=== PATIENT | female | born 1945 | race Caucasian/White ===

== ENCOUNTER 2016-08-08 21:05 | Emergency (ER) | payer OTHER ==
[~2016-08-08] VITALS: Ht 172.7 cm; Wt 72.6 kg
[~2016-08-08 21:05] MED LIST: ASPI81TA57 PO; BSP5 PO; CHOL100010 PO; CPR500 PO; CZR25 PO; EST5 PO; MISCCAP80 PO; NTRGSL/4 UT; PANT40TA PO; TNR25X PO
[2016-08-08 21:33] VITALS: Ht 172.7 cm; Wt 72.6 kg
[2016-08-08] MEDS ORDERED: ASPIRIN 81 MG CHEW PO STA (21:51)
[2016-08-08 21:52] VITALS: O2SAT 98
--- NOTE | 2016-08-08 21:52 | EMERGENCY ROOM VISIT NOTE ---
History Report prepared by Louisiberic: Yusuf Rivera Under the Supervision of: Dr. Kai Gerard D.O. First contact with patient: 21:39 Chief Complaint: CARDIAC ASSESSMENT Stated Complaint: HEADACHE, FATIQUE Nursing Triage Summary: Patient arrives BLS to ED with complaints of chest pain off and on, currently not experiencing pain. Patient also notes severe headache that has persisted for 3 days, back pain and feeling weak all day. Patient has a history of blockages in her heart, cath scheduled for 08/12 in [place]. Patient had [place] at 45 years of age with angioplasty. Patient denies dizziness and denies photosensitivity, though notes that loud noises are increasing headache pain. Patient notes SOB with exertion. History of Present Illness The patient is a 70 year old female with a history of coronary artery disease who presents to the Emergency Room for an acute cardiac assessment. The patient experiences intermittent chest pain radiating to her neck and face, and her arms felt funny earlier tonight. The patient notes intermittent middle back pain between her shoulder blades. She has also been experiencing exertional shortness of breath. The patient's symptoms are better when she is resting and laying down. The patient did not have any aspirin today but she normally takes a daily baby aspirin. She has had increased swelling of the lower extremities without significant leg pain. The patient is scheduled to have a cardiac catheterization at [facility] in four days with Dr. Yuen. She recently had a stress test. The patient had a heart attack at the age of 45 and is s/p angioplasty. The patient additionally complains of a headache and fatigue for the past several days. Source of History: patient Onset: tonight Position: other (cardiovascular) Quality: other (cardiac assessment) Timing: other (acute) Associated Symptoms: + SOB, + back pain, + chest pain, + fatigue, + headache Review of Systems See HPI for pertinent positives and negatives. A total of ten systems were reviewed and were otherwise negative. Past Medical & Surgical Medical Problems: (1) ACUTE SIGMOID DIVERTICULITIS (2) Benign hypertension (3) Chest tightness (4) Coronary artery disease (5) Diverticulitis large intestine (6) Diverticulosis of colon (7) Dyslipidemia (8) Generalized osteoarthritis (9) GERD (gastroesophageal reflux disease) (10) History of myocardial infarction (11) IBS (irritable bowel syndrome) Surgical Problems: (1) H/O exploratory laparotomy (2) History of hysterectomy (3) History of Faisal fundoplication (4) History of tonsillectomy and adenoidectomy (5) S/P repair of paraesophageal hernia Family History Cancer Heart disease Hypertension Kidney disease Kidney stones Lung disease Social History Smoking Status: Never Smoker Alcohol Use: occasionally Drug Use: none Marital Status: Housing Status: lives with family Occupation Status: retired Current/Historical Medications Scheduled Aspirin (Aspirin Ec Lo-Dose), 81 MG PO HS Atenolol (Atenolol), 6.25 MG PO BID Buspirone HCl (Buspirone HCl), 5 MG PO BID Cholecalciferol (Vitamin D), 2,000 INTER.UNIT PO DAILY Ciprofloxacin (Ciprofloxacin HCl), 500 MG PO BID Estradiol (Estradiol), 0.5 MG PO Q2D Losartan Potassium (Losartan Potassium), 12.5 MG PO QAM Pantoprazole (Protonix), 40 MG PO QAM Probiotic Product (Probiotic), 1 CAP PO QAM Scheduled PRN Nitroglycerin (Nitrostat), 0.4 MG UT UD PRN for Chest Pain Allergies Coded Allergies: Isosorbide (Verified Allergy, Intermediate, FR [facility] [place] RECORD - PT [place], 11/29/15) Escitalopram (Verified Allergy, Unknown, itching, 11/29/15) Latex1 -Allergic Contact Dermititis (Verified Allergy, Unknown, RASH, ) Epinephrine (Verified Adverse Reaction, Intermediate, HEART RACES, 11/29/15) Alprazolam (Verified Adverse Reaction, Unknown, HEADACHE, 11/29/15) Physical Exam Vital Signs Date Time Temp Pulse Resp B/P Pulse Ox O2 Delivery O2 Flow Rate FiO2 08/08/16 22:36 59 19 97 08/08/16 22:31 139/78 08/08/16 22:06 61 15 99 08/08/16 22:01 173/72 08/08/16 21:52 98 Room Air 08/08/16 21:35 59 18 96 08/08/16 21:33 73 20 152/85 98 Room Air 08/08/16 21:33 98 Room Air 08/08/16 21:31 155/74 08/08/16 21:23 64 08/08/16 21:15 152/85 Physical Exam GENERAL: Awake, alert, well-appearing, in no distress HENT: Normocephalic, atraumatic. Oropharynx unremarkable. EYES: Normal conjunctiva. Sclera non-icteric. NECK: Supple. No nuchal rigidity. FROM. No JVD. RESPIRATORY: Clear to auscultation. CARDIAC: Regular rate, normal rhythm. Extremities warm and well perfused. Pulses equal. ABDOMEN: Soft, non-distended. No tenderness to palpation. No rebound or guarding. No masses. RECTAL: Deferred. MUSCULOSKELETAL: Chest examination reveals no tenderness. The back is symmetrical on inspection without obvious abnormality. There is no CVA tenderness to palpation. No joint edema. LOWER EXTREMITIES: Calves are equal size bilaterally and non-tender. No edema. No discoloration. NEURO: Normal sensorium. No sensory or motor deficits noted. SKIN: No rash or jaundice noted. Medical Decision & Procedures ER Provider Diagnostic Interpretation: X-ray: Per my interpretation, radiologist interpretation. CHEST ONE VIEW PORTABLE CLINICAL HISTORY: CHEST PAIN dyspnea COMPARISON STUDY: No previous studies for comparison. FINDINGS: The bones soft tissues and hemidiaphragms are normal. The cardiomediastinal silhouette is normal. The lungs are clear. The pulmonary vasculature is normal. IMPRESSION: Negative chest. Electronically signed by: Amador Lopez M.D. 08/08/2016 10:23 PM Dictated Date/Time: 08/08/2016 10:23 PM Laboratory Results 08/08/16 21:29 Red Blood Count 4.54, Mean Corpuscular Volume 86.6, Mean Corpuscular Hemoglobin 28.4, Mean Corpuscular Hemoglobin Concent 32.8, Mean Platelet Volume 9.7, Neutrophils (%) (Auto) 62.4, Lymphocytes (%) (Auto) 30.5, Monocytes (%) (Auto) 5.9, Eosinophils (%) (Auto) 1.0, Basophils (%) (Auto) 0.1, Neutrophils # (Auto) 4.59, Lymphocytes # (Auto) 2.24, Monocytes # (Auto) 0.43, Eosinophils # (Auto) 0.07, Basophils # (Auto) 0.01 08/08/16 21:29 Test 08/08/16 21:29 08/08/16 21:55 White Blood Count 7.35 K/uL (4.8-10.8) Red Blood Count 4.54 M/uL (4.2-5.4) Hemoglobin 12.9 g/dL (12.0-16.0) Hematocrit 39.3 % (37-47) Mean Corpuscular Volume 86.6 fL (80-100) Mean Corpuscular Hemoglobin 28.4 pg (25-34) Mean Corpuscular Hemoglobin Concent 32.8 g/dl (32-36) Platelet Count 305 K/uL (130-400) Mean Platelet Volume 9.7 fL (7.4-10.4) Neutrophils (%) (Auto) 62.4 % Lymphocytes (%) (Auto) 30.5 % Monocytes (%) (Auto) 5.9 % Eosinophils (%) (Auto) 1.0 % Basophils (%) (Auto) 0.1 % Neutrophils # (Auto) 4.59 K/uL (1.4-6.5) Lymphocytes # (Auto) 2.24 K/uL (1.2-3.4) Monocytes # (Auto) 0.43 K/uL (0.11-0.59) Eosinophils # (Auto) 0.07 K/uL (0-0.5) Basophils # (Auto) 0.01 K/uL (0-0.2) RDW Standard Deviation 45.4 fL (36.4-46.3) RDW Coefficient of Variation 14.4 % (11.5-14.5) Immature Granulocyte % (Auto) 0.1 % Immature Granulocyte # (Auto) 0.01 K/uL (0.00-0.02) Anion Gap 7.0 mmol/L (3-11) Est Creatinine Clear Calc Drug Dose 69.4 ml/min Estimated GFR () 92.9 Estimated GFR (Non- 80.2 BUN/Creatinine Ratio 13.1 (10-20) Calcium Level 8.8 mg/dl (8.5-10.1) Total Bilirubin 0.3 mg/dl (0.2-1) Direct Bilirubin < 0.1 mg/dl (0-0.2) Aspartate Amino Transf (AST/SGOT) 12 U/L (15-37) Alanine Aminotransferase (ALT/SGPT) 15 U/L (12-78) Alkaline Phosphatase 91 U/L (45-117) Total Protein 7.4 gm/dl (6.4-8.2) Albumin 3.5 gm/dl (3.4-5.0) Bedside Troponin I 0.000 ng/ml (0-0.045) Laboratory results reviewed by me Medications Administered Medications (Trade) Dose Ordered Sig/Dwight Route Start Time Stop Time Status Last Admin Dose Admin Aspirin (Aspirin Chew) 324 mg NOW STAT PO 08/08/16 21:51 08/08/16 21:52 DC 08/08/16 22:00 324 MG ECG Indication: chest pain Rate (beats per minute): 64 Rhythm: normal sinus Findings: nonspecific-ST abn, other (normal axis, normal intervals) ED Course 2139: The patient was evaluated in room B12b. A complete history and physical exam was performed. 2150: Aspirin 324 mg PO. 2221: Spoke with Dr. Sue, the second officer [employer] [facility] at [facility]. He accepted to patient for transfer. Medical Decision Differential diagnosis: Etiologies such as cardiac ischemia, aortic dissection, pulmonary embolism, pneumonia, pneumothorax, musculoskeletal, infections, pericarditis, myocarditis, esophageal rupture, gastrointestinal, as well as others were entertained. Patient was given aspirin the emergency department. Patient remained stable with no current chest pain. I've spoken to cardiology [facility] accepts the patient for admission and transfer at 2229. Consults Time Called: 2214 Consulting Physician: Dr. Sue, the second officer [employer] [facility] at [facility] Returned Call: [phone] He accepted to patient for transfer. Impression Primary Impression: Acute chest pain Scribe Attestation The scribe's documentation has been prepared under my direction and personally reviewed by me in its entirety. I confirm that the note above accurately reflects all work, treatment, procedures, and medical decision making performed by me. Departure Information Dispostion Transfer Acute Care Facility Referrals Anders Crawley D.O. (PCP) Patient Instructions [facility]
[2016-08-08 21:58] LABS: BASO % 0.1 %; BASO ABS # 0.01 K/uL (0-0.2); COMPLETE YES; HEMATOCRIT 39.3 % (37-47); IG% 0.1 %; LYMPH % 30.5 %; LYMPH ABS # 2.24 K/uL (1.2-3.4); MEAN CELL VOLUME 86.6 fL (80-100); MEAN CORPUSCULAR HEMOGLOBIN 28.4 pg (25-34); MEAN CORPUSCULAR HGB CONC 32.8 g/dl (32-36); MEAN PLATELET VOLUME 9.7 fL (7.4-10.4); MONO % 5.9 %; NEUT % 62.4 %; PLATELET COUNT 305 K/uL (130-400); RED BLOOD COUNT 4.54 M/uL (4.2-5.4); WHITE BLOOD COUNT 7.35 K/uL (4.8-10.8)
[2016-08-08 22:05] LABS: ALT/SGPT 15 U/L (12-78); BLOOD UREA NITROGEN 10 mg/dl (7-18); BUN/CREATININE RATIO 13.1 (10-20); CARBON DIOXIDE 28 mmol/L (21-32); CHLORIDE 103 mmol/L (98-107); CREATININE 0.75 mg/dl (0.60-1.20); GLUCOSE 110 mg/dl (70-99); POTASSIUM 3.6 mmol/L (3.5-5.1); SODIUM 138 mmol/L (136-145)
[2016-08-08 22:08] LABS: ALKALINE PHOSPHATASE 91 U/L (45-117); AST/SGOT 12 U/L (15-37)
[2016-08-08 22:12] LABS: CALCIUM 8.8 mg/dl (8.5-10.1)
--- NOTE | 2016-08-08 22:25 | DIAGNOSTIC IMAGING REPORT ---
CHEST ONE VIEW PORTABLE CLINICAL HISTORY: CHEST PAIN dyspnea COMPARISON STUDY: No previous studies for comparison. FINDINGS: The bones soft tissues and hemidiaphragms are normal. The cardiomediastinal silhouette is normal. The lungs are clear. The pulmonary vasculature is normal. IMPRESSION: Negative chest. Electronically signed by: Amador Lopez M.D. 08/08/2016 10:23 PM Dictated Date/Time: 08/08/2016 10:23 PM
[2016-08-08 22:36] VITALS: TEMP 36.8
[2016-08-08] MEDS ORDERED: HYDR25TA4 PO (22:50)
[2016-08-08] MEDS ORDERED: SIMV40TA2 PO (22:51)
[2016-08-08] MEDS ORDERED: DOXY1TAB6 PO (22:53)
[2016-08-08] MEDS ORDERED: LORA-741 PO (22:54)
[2016-08-08] MEDS ORDERED: METR0.7527 TD (22:55)
[2016-08-08] MEDS ORDERED: CLOTCRE33 TOP (22:57)
[2016-08-08] MEDS ORDERED: PRED-603 PO (22:59)
[2016-08-08] MEDS ORDERED: ALBUAER INH (23:03)
[2016-08-08] MEDS ORDERED: TIZA4CAP PO (23:04)
[2016-08-08] MEDS ORDERED: HEMP OIL PO (23:05)
[2016-08-08] MEDS ORDERED: ZNTT/150 PO (23:06)
[2016-08-08] MEDS ORDERED: IMD/2 PO (23:08)
[2016-08-08] MEDS ORDERED: POTA1TAB PO (23:09)
[2016-08-08] MEDS ORDERED: SUCR1TAB29 PO (23:10)
[2016-08-08] MEDS ORDERED: ACETAMINOPHEN 500 MG TAB PO STA (23:11)
[2016-08-08] MEDS ORDERED: CYCL5TAB PO (23:12)
[2016-08-08] MEDS ORDERED: BUSP5TAB59 PO ×2 (23:14)
[2016-08-08] MEDS ORDERED: HYDRCRE28 PR (23:19)
[2016-08-08] MEDS ORDERED: ACET1TAB84 PO (23:21)
[2016-08-08] MEDS ORDERED: AMOX875T PO (23:26)
[2016-08-08 23:39] VITALS: BP 154/86; PULSE 61; O2SAT 97
[2016-08-08] MEDS ORDERED: POTA-74 PO (23:58)
== END 2016-08-08 23:44 | disposition short-term general hospital (02) ==
LOC: EDBD 21:05 → C.EDB 21:06
DX: R07.9 Chest pain, unspecified (principal); I10 Essential (primary) hypertension; I25.10 Atherosclerotic heart disease of native coronary artery without angina pectoris; E78.5 Hyperlipidemia, unspecified; K21.9 Gastro-esophageal reflux disease without esophagitis; K58.9 Irritable bowel syndrome, unspecified; K57.90 Diverticulosis of intestine, part unspecified, without perforation or abscess without bleeding; K57.92 Diverticulitis of intestine, part unspecified, without perforation or abscess without bleeding; I25.2 Old myocardial infarction; Z90.710 Acquired absence of both cervix and uterus; Z98.890 Other specified postprocedural states; Z79.82 Long term (current) use of aspirin; Z79.899 Other long term (current) drug therapy; Z91.040 Latex allergy status; Z88.8 Allergy status to other drugs, medicaments and biological substances; Z80.9 Family history of malignant neoplasm, unspecified; Z82.49 Family history of ischemic heart disease and other diseases of the circulatory system; Z84.1 Family history of disorders of kidney and ureter

== ENCOUNTER → 2016-10-12 | Outpatient (CLI) | payer OTHER ==
[~2016-10-12] MED LIST changes: +ACET1TAB84 PO; +ALBUAER INH; +AMOX875T PO; -BSP5 PO; +BUSP5TAB59 PO; +CLOTCRE33 TOP; -CPR500 PO; +CYCL5TAB PO; +DOXY1TAB6 PO; +HEMP OIL PO; +HYDR25TA4 PO; +HYDRCRE28 PR; +IMD/2 PO; +LORA-741 PO; +METR0.7527 TD; +OPTIRAY 320 IV PRN; +POTA-74 PO; +PRED-603 PO; +SIMV40TA2 PO; +SUCR1TAB29 PO; +TIZA4CAP PO; +ZNTT/150 PO
--- NOTE | 2016-10-12 08:52 | DIAGNOSTIC IMAGING REPORT ---
ABD/PELVIS IV AND ORAL CONT CT DOSE: 482.13 mGy.cm HISTORY: Diverticulitis. Pain. Gallstones TECHNIQUE: Multiaxial CT images of the abdomen and pelvis were performed following the use of intravenous and oral contrast. A dose lowering technique was utilized adhering to the principles of ALARA. COMPARISON STUDY: 11/29/2015 FINDINGS: Lung bases are clear. Mild fatty infiltration of liver. Several small gallstones within the gallbladder lumen. No significant gallbladder distention. Pancreas is uniform. Spleen is uniform. Kidneys show several parapelvic cysts but are negative for hydronephrosis. Moderate atherosclerotic change thoracic aorta. No significant abdominal retroperitoneal or pelvic adenopathy. Doppler as nonobstructive. Moderate chronic sigmoid diverticulosis. No evidence for acute diverticulitis. No evidence for abscess collection or obstruction. IMPRESSION: 1. Chronic sigmoid diverticulosis with no evidence for diverticulitis. 2. Several small gallstones in a nondistended gallbladder. 3. Several small renal parapelvic cysts considered benign. 4. Mild fatty infiltration of liver. 5. Stable postoperative changes to the gastric fundus The above report was generated using voice recognition software. It may contain grammatical, syntax or spelling errors. Electronically signed by: Amador Lopez M.D. 10/12/2016 8:51 AM Dictated Date/Time: 10/12/2016 8:42 AM
== END | disposition home or self-care (01) ==
LOC: C.CTS 07:15
PROVIDERS: ATTEND Surgery
DX: K80.20 Calculus of gallbladder without cholecystitis without obstruction (principal); M54.9 Dorsalgia, unspecified; K57.30 Diverticulosis of large intestine without perforation or abscess without bleeding

== ENCOUNTER → 2016-10-21 | Outpatient (CLI) | payer OTHER ==
[~2016-10-21] MED LIST changes: -OPTIRAY 320 IV PRN
--- NOTE | 2016-10-21 16:01 | DIAGNOSTIC IMAGING REPORT ---
THORACIC SPINE 3 VIEWS CLINICAL HISTORY: Thoracic back pain. FINDINGS: AP, lateral, and swimmer's views of the thoracic spine are obtained. Correlation is made with chest CT dated 05/09/2015. The skeletal structures are osteopenic. There is no radiographic evidence of fracture or malalignment. Vertebral body height and alignment are maintained throughout the thoracic spine. Anterior osteophytes are seen throughout and there is hyperkyphosis. The transverse processes and pedicles are grossly intact as seen on the frontal view. Multilevel degenerative disc space narrowing is noted. Endplate sclerosis is seen in the lower thoracic region. The visualized lung parenchyma appears clear. A calcification adjacent to the gastroesophageal junction is unchanged from previous. IMPRESSION: 1. No acute bony abnormality is seen involving the thoracic spine. 2. Osteopenia and spondylotic change as above. Electronically signed by: Chuy Cantor M.D. 10/21/2016 4:00 PM Dictated Date/Time: 10/21/2016 3:58 PM
== END | disposition home or self-care (01) ==
LOC: C.RADBC 15:18
PROVIDERS: ATTEND Physician Assistant Medical
DX: M54.6 Pain in thoracic spine (principal)

== ENCOUNTER 2017-02-01 09:54 | Emergency (ER) | payer OTHER ==
[~2017-02-01] VITALS: Ht 157.5 cm; Wt 74.0 kg
[~2017-02-01 09:54] MED LIST changes: -AMOX875T PO; -CYCL5TAB PO; -TIZA4CAP PO
[2017-02-01 10:03] VITALS: TEMP 36.6; Ht 157.5 cm; Wt 74.0 kg
[2017-02-01] MEDS ORDERED: ALBUT/IPRATROP 3MG/0.5MG NEB 3 ML VIAL INH STA (10:27)
[2017-02-01] MEDS ORDERED: AMOXICILLIN 250 MG CAP PO ONE (10:30)
--- NOTE | 2017-02-01 10:49 | DIAGNOSTIC IMAGING REPORT ---
CHEST ONE VIEW PORTABLE CLINICAL HISTORY: cough COMPARISON STUDY: 08/08/2016 FINDINGS: The heart is normal in size. There is stable elevation/eventration of the left hemidiaphragm. There is a stable right-sided pleural diaphragmatic calcification. There is no focal pulmonary consolidation. There is no failure. There are no pleural effusions.[ IMPRESSION: No active disease in the chest. Electronically signed by: Jordan Wong M.D. 02/01/2017 10:48 AM Dictated Date/Time: 02/01/2017 10:47 AM
[2017-02-01 11:05] LABS: ALT/SGPT 17 U/L (12-78); BLOOD UREA NITROGEN 10 mg/dl (7-18); CALCIUM 9.3 mg/dl (8.5-10.1); CARBON DIOXIDE 23 mmol/L (21-32); CHLORIDE 102 mmol/L (98-107); CREATININE 0.82 mg/dl (0.60-1.20); GLUCOSE 146 mg/dl (70-99); POTASSIUM 3.3 mmol/L (3.5-5.1); SODIUM 139 mmol/L (136-145)
[2017-02-01 11:07] LABS: BASO % 0.1 %; BASO ABS # 0.02 K/uL (0-0.2); COMPLETE YES; HEMATOCRIT 40.4 % (37-47); IG% 0.2 %; LYMPH % 9.6 %; LYMPH ABS # 1.36 K/uL (1.2-3.4); MEAN CORPUSCULAR HEMOGLOBIN 28.9 pg (25-34); MEAN CORPUSCULAR HGB CONC 33.7 g/dl (32-36); MEAN PLATELET VOLUME 10.2 fL (7.4-10.4); MONO % 3.8 %; NEUT % 86.3 %; PLATELET COUNT 299 K/uL (130-400); WHITE BLOOD COUNT 14.22 K/uL (4.8-10.8)
[2017-02-01 11:10] LABS: ALKALINE PHOSPHATASE 97 U/L (45-117); AST/SGOT 15 U/L (15-37)
[2017-02-01] MEDS ORDERED: IBUPROFEN 200 MG TAB PO STA (11:19)
[2017-02-01] MEDS ORDERED: AMOX500C3 PO (11:40)
--- NOTE | 2017-02-01 11:40 | EMERGENCY ROOM VISIT NOTE ---
History Report prepared by Pete: Belle Bacon Under the Supervision of: Dr. Guevara Daniel D.O. First contact with patient: 10:21 Chief Complaint: SHORTNESS OF BREATH Stated Complaint: TIGHTNESS IN CHEST, DIFFICULTY BREATHING Nursing Triage Summary: SOb and [place] with coughing up yellow chunks with epigastric pain into her chest getting worse over night History of Present Illness The patient is a 71 year old female who presents to the Emergency Room with complaints of worsening shortness of breath beginning last night. The patient developed a cough, shortness of breath, and tightness in her chest last night. She took some prednisone last night. Her symptoms worsened throughout the night. She used Vicks, cough drops, and Tylenol throughout the night to manage her symptoms. This morning she woke up and her symptoms persisted. She took another dose of prednisone. She called her PCP and they were unable to see her until this afternoon. The patient was advised to come to the ED for further evaluation. The patient also reports pain with swallowing. She takes a baby aspirin and denies any other blood thinner usage. She was taking a low dose of doxycycline for rosacea but denies any other recent antibiotic use. Source of History: patient Onset: last night Position: chest (respiratory) Quality: other (shortness of breath) Timing: worsening Modifying Factors (Relieving): tylenol, other (Vicks, cough drops, prednisone) Associated Symptoms: + cough Note: Pt notes chest tightness. Review of Systems See HPI for pertinent positives & negatives. A total of 10 systems reviewed and were otherwise negative. Past Medical & Surgical Medical Problems: (1) ACUTE SIGMOID DIVERTICULITIS (2) Benign hypertension (3) Chest tightness (4) Coronary artery disease (5) Diverticulitis large intestine (6) Diverticulosis of colon (7) Dyslipidemia (8) Generalized osteoarthritis (9) GERD (gastroesophageal reflux disease) (10) History of myocardial infarction (11) IBS (irritable bowel syndrome) Surgical Problems: (1) H/O exploratory laparotomy (2) History of hysterectomy (3) History of Faisal fundoplication (4) History of tonsillectomy and adenoidectomy (5) S/P repair of paraesophageal hernia Family History Cancer Heart disease Hypertension Kidney disease Kidney stones Lung disease Social History Smoking Status: Former Smoker Alcohol Use: occasionally Drug Use: marijuana Marital Status: Housing Status: lives with family Occupation Status: retired Current/Historical Medications Scheduled Aspirin (Aspirin Ec Lo-Dose), 81 MG PO HS Atenolol (Atenolol), 12.5 MG PO QAM Buspirone Hcl (Buspirone Hcl), 2.5 MG PO QAM Cholecalciferol (Vitamin D), 2,000 INTER.UNIT PO DAILY Clotrimazole W/ Betamethasone (Lotrisone), 1 APPLN TOP BID Estradiol (Estradiol), 0.5 MG PO Q2D Hydrochlorothiazide (Hctz), 12.5 MG PO QAM Losartan Potassium (Losartan Potassium), 12.5 MG PO QPM Metronidazole (Topical) (Metrogel), 1 APPLN TD BID Pantoprazole (Protonix), 40 MG PO QAM Potassium Chloride (Potassium Chloride Er), 20 MEQ PO DAILY Prednisone (Deltasone), 10 MG PO PRN/UD Probiotic Product (Probiotic), 1 CAP PO QAM Simvastatin (Zocor), 40 MG PO QPM [Hemp Oil], 15 DROPS PO DAILY Scheduled PRN Acetaminophen (Tylenol Arthritis Ext Rel), 650 MG PO Q8H PRN for Pain Albuterol Sulfate (Proventil Hfa), 2 PUFFS INH Q4H PRN for SOB/Wheezing Doxycycline Hyclate (Doxycycline Hyclate), 50 MG PO DAILY PRN for ROSACEA Hydrocortisone (Rectal) (Proctozone-Hc), 1 APPLN NC BID PRN for Hemorrhoids Loperamide Hcl (Imodium), 2 MG PO QID PRN for Diarrhea Lorazepam (Ativan), 0.5 MG PO Q8 PRN for Anxiety Nitroglycerin (Nitrostat), 0.4 MG UT UD PRN for Chest Pain Ranitidine (Zantac), 150 MG PO QPM PRN for GI Upset Sucralfate (Carafate), 1 GM PO QID PRN for REFLUX Allergies Coded Allergies: Isosorbide Nitrate (Verified Allergy, Intermediate, FR [facility] [place] RECORD - PT [place], 11/29/15) Escitalopram (Verified Allergy, Unknown, itching, 11/29/15) Latex1 -Allergic Contact Dermititis (Verified Allergy, Unknown, RASH, ) Epinephrine (Verified Adverse Reaction, Intermediate, HEART RACES, 11/29/15) Alprazolam (Verified Adverse Reaction, Unknown, HEADACHE, 11/29/15) Physical Exam Vital Signs Date Time Temp Pulse Resp B/P (MAP) Pulse Ox O2 Delivery O2 Flow Rate FiO2 02/01/17 11:24 100 Room Air 02/01/17 10:52 48 15 136/78 02/01/17 10:10 62 02/01/17 10:03 36.6 55 22 171/87 99 Physical Exam CONSTITUTIONAL/VITAL SIGNS: Reviewed / noted above. GENERAL: Non-toxic in appearance. INTEGUMENTARY: Warm, dry, and [place]. HEAD: Normocephalic. EYES: without scleral icterus or trauma. ENT/OROPHARYNX: clear and moist. LYMPHADENOPATHY/NECK: Is supple without lymphadenopathy or meningismus. RESPIRATORY: Lungs clear and equal. Productive cough with yellow sputum. CARDIOVASCULAR: Regular rate and rhythm. GI/ABDOMEN: Soft and nontender. No organomegaly or pulsatile mass. No rebound or guarding. Normal bowel sounds. EXTREMITIES: Warm and well perfused. BACK: No CVA tenderness. NEUROLOGICAL: Intact without focal deficits. PSYCHIATRIC: normal affect. MUSCULOSKELETAL: Normally developed with good muscle tone. Medical Decision & Procedures ER Provider Diagnostic Interpretation: Radiology results as stated below per my review and radiologist interpretation: CHEST ONE VIEW PORTABLE CLINICAL HISTORY: cough COMPARISON STUDY: 08/08/2016 FINDINGS: The heart is normal in size. There is stable elevation/eventration of the left hemidiaphragm. There is a stable right-sided pleural diaphragmatic calcification. There is no focal pulmonary consolidation. There is no failure. There are no pleural effusions.[ IMPRESSION: No active disease in the chest. Electronically signed by: Jordan Wong M.D. 02/01/2017 10:48 AM Dictated Date/Time: 02/01/2017 10:47 AM Laboratory Results 02/01/17 10:15 Red Blood Count 4.70, Mean Corpuscular Volume 86.0, Mean Corpuscular Hemoglobin 28.9, Mean Corpuscular Hemoglobin Concent 33.7, Mean Platelet Volume 10.2, Neutrophils (%) (Auto) 86.3, Lymphocytes (%) (Auto) 9.6, Monocytes (%) (Auto) 3.8, Eosinophils (%) (Auto) 0.0, Basophils (%) (Auto) 0.1, Neutrophils # (Auto) 12.27, Lymphocytes # (Auto) 1.36, Monocytes # (Auto) 0.54, Eosinophils # (Auto) 0.00, Basophils # (Auto) 0.02 02/01/17 10:15 Test 02/01/17 10:15 White Blood Count 14.22 K/uL (4.8-10.8) Red Blood Count 4.70 M/uL (4.2-5.4) Hemoglobin 13.6 g/dL (12.0-16.0) Hematocrit 40.4 % (37-47) Mean Corpuscular Volume 86.0 fL (80-100) Mean Corpuscular Hemoglobin 28.9 pg (25-34) Mean Corpuscular Hemoglobin Concent 33.7 g/dl (32-36) Platelet Count 299 K/uL (130-400) Mean Platelet Volume 10.2 fL (7.4-10.4) Neutrophils (%) (Auto) 86.3 % Lymphocytes (%) (Auto) 9.6 % Monocytes (%) (Auto) 3.8 % Eosinophils (%) (Auto) 0.0 % Basophils (%) (Auto) 0.1 % Neutrophils # (Auto) 12.27 K/uL (1.4-6.5) Lymphocytes # (Auto) 1.36 K/uL (1.2-3.4) Monocytes # (Auto) 0.54 K/uL (0.11-0.59) Eosinophils # (Auto) 0.00 K/uL (0-0.5) Basophils # (Auto) 0.02 K/uL (0-0.2) RDW Standard Deviation 42.9 fL (36.4-46.3) RDW Coefficient of Variation 13.7 % (11.5-14.5) Immature Granulocyte % (Auto) 0.2 % Immature Granulocyte # (Auto) 0.03 K/uL (0.00-0.02) Anion Gap 14.0 mmol/L (3-11) Est Creatinine Clear Calc Drug Dose 58.4 ml/min Estimated GFR () 82.9 Estimated GFR (Non- 71.5 BUN/Creatinine Ratio 12.0 (10-20) Calcium Level 9.3 mg/dl (8.5-10.1) Total Bilirubin 0.4 mg/dl (0.2-1) Aspartate Amino Transf (AST/SGOT) 15 U/L (15-37) Alanine Aminotransferase (ALT/SGPT) 17 U/L (12-78) Alkaline Phosphatase 97 U/L (45-117) Troponin I < 0.015 ng/ml (0-0.045) Total Protein 7.7 gm/dl (6.4-8.2) Albumin 3.9 gm/dl (3.4-5.0) Globulin 3.8 gm/dl (2.5-4.0) Albumin/Globulin Ratio 1.0 (0.9-2) Laboratory results as stated above per my review. Medications Administered Medications (Trade) Dose Ordered Sig/Dwight Route Start Time Stop Time Status Last Admin Dose Admin Albuterol/ Ipratropium (Duoneb) 3 ml NOW STAT INH 02/01/17 10:27 02/01/17 10:29 DC 02/01/17 10:41 3 ML Amoxicillin (Amoxil Cap) 500 mg NOW ONCE PO 02/01/17 10:30 02/01/17 10:31 DC 02/01/17 10:41 500 MG Ibuprofen (Advil Tab) 400 mg NOW STAT PO 02/01/17 11:19 02/01/17 11:20 DC 02/01/17 11:23 400 MG ECG Indication: SOB/dyspnea Rate (beats per minute): 54 Rhythm: normal sinus Findings: no acute ischemic change, no ectopy ED Course 1021: Previous medical records were reviewed. The patient was evaluated in room C6. A complete history and physical examination was performed. 1027: DuoNeb 3 ml INH 1030: Amoxicillin 500 mg PO 1119: Ibuprofen 400 mg PO 1129: I reassessed the patient at this time. She is feeling better and resting comfortably. I discussed the results and treatment plan with the patient. I answered all pertaining questions that she had. She expressed understanding and verbalized agreement. The patient will be discharged home. Medical Decision Differentials considered include acute myocardial infarction, acute coronary syndrome, myocarditis, pericarditis, pericardial effusions /tamponade, esophageal perforation, pulmonary embolism, pneumonia, pneumothorax, cardiomyopathy, congestive heart, anemia, and COPD/asthma exacerbation. This is a 71-year-old female who presents to the ED with a chief complaint of a cough. She also describes some tightness in her chest at night. She took a 40 mg prednisone since the onset of her symptoms. She has a productive cough for yellow sputum. The patient contacted her PCP this morning was told to come to the ED for evaluation. On exam, she does have a productive cough for yellow sputum. She denies any other significant symptoms. An EKG shows a sinus bradycardia without ischemic changes. White blood cell count was 14. Complete metabolic panel was unremarkable, troponin is negative, chest x-ray did not show acute disease. The patient's symptoms are consistent with a bronchitis. She was treated with amoxicillin here. She was also given a DuoNeb treatment. She is felt to be stable for discharge and outpatient follow-up. Medication Reconcilliation Current Medication List: was personally reviewed by me Blood Pressure Screening Patient's blood pressure: Elevated blood pressure Blood pressure disposition: Referred to PCP Impression Primary Impression: Acute bronchitis Scribe Attestation The scribe's documentation has been prepared under my direction and personally reviewed by me in its entirety. I confirm that the note above accurately reflects all work, treatment, procedures, and medical decision making performed by me. Departure Information Dispostion Home / Self-Care Prescriptions Amoxicillin (AMOXIL) 500 Mg Cap 500 MG PO TID, #21 CAP Prov: Guevara Daniel D.O. 02/01/17 Referrals Anders Crawley D.ODustin (PCP) Patient Instructions My [facility] Additional Instructions Amoxicillin as prescribed. Follow-up with your doctor for further care and evaluation in 1-2 days. Return to the emergency department for worsening or new symptoms or any concerns. You have been examined and treated today on an emergency basis only. This is not a substitute for, or an effort to provide, complete comprehensive medical care. It is impossible to recognize and treat all injuries or illnesses in a single emergency department visit. It is therefore important that you follow up closely with your doctor. Call as soon as possible for an appointment.
[2017-02-01] MEDS ORDERED: CHOL400C9 (11:42)
[2017-02-01] MEDS ORDERED: ASPI81TA28 PO (11:42)
[2017-02-01 11:54] VITALS: BP 143/63; PULSE 59; O2SAT 98
== END 2017-02-01 12:00 | disposition home or self-care (01) ==
LOC: C.EDB 09:57 → C.EDC 12:00
DX: J20.9 Acute bronchitis, unspecified (principal); L71.9 Rosacea, unspecified; I10 Essential (primary) hypertension; I25.10 Atherosclerotic heart disease of native coronary artery without angina pectoris; K57.30 Diverticulosis of large intestine without perforation or abscess without bleeding; E78.5 Hyperlipidemia, unspecified; K21.9 Gastro-esophageal reflux disease without esophagitis; I25.2 Old myocardial infarction; K58.9 Irritable bowel syndrome, unspecified; Z79.82 Long term (current) use of aspirin; Z87.891 Personal history of nicotine dependence; Z90.710 Acquired absence of both cervix and uterus; Z82.49 Family history of ischemic heart disease and other diseases of the circulatory system; Z84.1 Family history of disorders of kidney and ureter

== ENCOUNTER 2017-11-03 10:58 | Observation (INO) | payer OTHER ==
[~2017-11-03] VITALS: Ht 157.5 cm; Wt 72.8 kg
[~2017-11-03 10:58] MED LIST changes: +ASPI81TA28 PO; -ASPI81TA57 PO; +CEFAZOLIN 1000MG IV PUSH 7.5 ML IV SCH; -CHOL100010 PO; +CHOL400C9; +RANI150T85 PO; -ZNTT/150 PO
[2017-11-03 12:01] VITALS: BP 140/82; PULSE 53; TEMP 36.8; O2SAT 96; BMI 29.0
--- NOTE | 2017-11-03 12:32 | History & Physical Bridge Note ---
H&P Re-Evaluation Bridge Note: I have examined the patient, reviewed the History & Physical and in the interval since the performance of the History & Physical I have noted the following changes of clinical significance: No changes noted
--- NOTE | 2017-11-03 12:33 | Pre Sedation Assessment ---
Pre Sedation Assessment General Date of Sedation: Nov 03, 2017. Vital Signs Past 12 Hours Date Time Temp Pulse Resp B/P (MAP) Pulse Ox O2 Delivery O2 Flow Rate FiO2 11/03/17 12:01 36.8 53 18 140/82 (101) 96 Room Air Review Cardiovascular: regular rate, rhythm, no murmur, + bradycardia Lungs: lungs clear, normal breath sounds Pre-Sedation Airway Assessment Smoking Status: Former Smoker Hx of Sleep Apnea: No Thyro-mental Distance: < or =3 Finger Breadths Oral Cavity: Capped Teeth, Dentures Mallampati Classification: Class II ASA Classification: Class II NPO Status Date of Last Intake of Fluids: Nov 02, 2017 Time of Last Intake of Fluids: 1929 Date of Last Intake of Solids: Nov 02, 2017 Time of Last Intake of Solids: 1929 Notes The planned sedation has been discussed with the patient. Informed Consent was obtained. I have identified the patient, determined the appropriateness of sedation and have assessed the patient immediately prior to the procedure. All medicine(s) and interventions are by my order.
[2017-11-03] MEDS ORDERED: BUPIVACAINE 0.25% 30 ML VIAL ONE (12:43)
[2017-11-03] MEDS ORDERED: LIDOCAINE HCL 1% 20 ML VIAL ONE (12:43)
[2017-11-03] MEDS ORDERED: BACITRACIN 50000 UNIT VIAL ONE (12:43)
[2017-11-03] MEDS ORDERED: FENTANYL CITRATE INJ 50 MCG/1 ML 2 ML VIAL ONE ×2 (12:51→13:21)
[2017-11-03] MEDS ORDERED: MIDAZOLAM HCL 5 MG/ML 1 ML VIAL ONE ×2 (12:51→13:21)
--- NOTE | 2017-11-03 14:25 | Post Sedation Assessment ---
Post Sedation Assessment General Date of Sedation Nov 03, 2017. Vital Signs: Vital Signs Past 12 Hours Date Time Temp Pulse Resp B/P (MAP) Pulse Ox O2 Delivery O2 Flow Rate FiO2 11/03/17 14:12 60 16 114/64 (81) 99 Nasal Cannula 5 11/03/17 12:01 36.8 53 18 140/82 (101) 96 Room Air Post Procedure Recovery Score Activity: (2) Moves 4 extremities * Respiration: (2) Deep breath/cough Circulation: (2) +/-20% PreAnes Value Consciousness: (2) Fully Awake Oxygen Saturation: (2) > 92% On Room Air Post Anesthesia Score: 10 Discharge Sedation Level of Care: Fast Track Phase II Post Sedation Plan On clinical assessment, the patient appears to have tolerated the sedation without complications. Patient is recovering as anticipated. Patient will continue to be monitored by nursing and may be discharged when sedation discharge criteria are met per below protocol. Upon Completions of procedure and additional 15 minutes continue every 5 minute vital signs and the P.A.R. score; then discharge to a Phase I or Fast Track to Phase II per the following guidelines: * Discharge Patient to appropriate Phase II area if PAR is 8 or greater or return to pre- procedure baseline. The post - procedure orders will be as directed. * If PAR score is less than 8 or not return to pre-procedure baseline then patient will follow Phase I monitoring till PAR is reached for Phase II. The Phase I may be done in procedure room or may call to secure a Phase I area. * If naloxone or flumazenil are used for reversal, hold in Phase I for an additional 60 -120 minutes before discharge to Phase II. Please call the Sedation Physician to re-evaluate and complete post-note for discharge to Phase II area. Do NOT discharge from procedure sedation or Phase 1 until post- sedation evaluation note is complete by procedure /sedation MD Sedation Discharge Instructions to be given to the patient at discharge to home.
--- NOTE | 2017-11-03 14:26 | [facility] Post Operative Brief Note ---
Immediate Operative Summary Operative Date Nov 03, 2017. Pre-Operative Diagnosis sss Post-Operative Diagnosis same Procedure(s) Performed dual chamber rate responsive permanent pacemaker with peripheral venogram under fluroscopic guidance Surgeon avinash cardenas Dovetailer Surgeon(s) none Estimated Blood Loss <10cc Findings See Below see official report Fluids (cc crystalloids) 100cc Specimens none Drains None Anesthesia Type IV Sedat Cons RN Only Complication(s) none Disposition Accompanied Pt To Recover: yes Disposition: PCU Overlapping Procedure I was present for: the critical portions of procedure. I was immediately available: during the entire case Back up surgeon: was not required during procedure
[2017-11-03] MEDS ORDERED: ACETAMINOPHEN 325 MG TAB PO PRN (14:30)
[2017-11-03] MEDS ORDERED: LOPERAMIDE HCL 2 MG CAP PO PRN (14:30)
[2017-11-03] MEDS ORDERED: RANITIDINE HCL 150 MG TAB PO PRN (14:30)
[2017-11-03] MEDS ORDERED: LORAZEPAM 0.5 MG TAB PO PRN (14:30)
[2017-11-03] MEDS ORDERED: ALBUTEROL HFA 8 GM INHALER INH PRN (14:30)
[2017-11-03] MEDS ORDERED: NITROGLYCERIN 0.4 MG SL PER TAB CHARGE UT PRN (14:30)
[2017-11-03] MEDS ORDERED: SUCRALFATE 1 GM TAB PO PRN (14:30)
--- NOTE | 2017-11-03 14:32 | Discharge Instructions ---
Discharge Instructions Date of Service Nov 03, 2017. Admission Reason for Admission: Sick Sinus Syndrome Discharge Discharge Diagnosis / Problem: sss s/p dual chamber pacemaker Discharge Goals Goal(s): Improve function Activity Recommendations Activity Limitations: as noted below Lifting Limitations: no more than 10 pounds (do not lift the left elbow over the left shoulder for 1 month; do not lift more than 10 pounds with the left arm for 2 weeks) Shower/Bathe: tomorrow Driving or Machine Use: resume 1 day after discharge . Instructions / Follow-Up Instructions / Follow-Up ACTIVITY RECOMMENDATIONS: * Do not raise affected arm over head for 4 weeks. SPECIAL CARE INSTRUCTIONS: * If bleeding occurs, apply direct pressure to area for 5 minutes. * Call your doctor if you have severe pain, fever, drainage or bleeding at site. * Keep dry for 24 hours. * Keep any scheduled doctor's appointment. * Implant Card - hand held device with website information given. SKIN IRRITATION: * You may experience some redness and/or swelling in the area where radiation was administered. If any skin irritation occurs, please contact your family physician. FOLLOW UP VISIT: Keep any scheduled doctor appointments. Current Hospital Diet Patient's current hospital diet: AHA Diet (Heart Healthy) Discharge Diet Recommended Diet: Regular Diet Procedures Procedures Performed: dual chamber rate responsive permanent pacemaker with peripheral venogram under fluroscopic guidance Pending Studies Studies pending at discharge: no Medical Emergencies . Who to Call and When: Medical Emergencies: If at any time you feel your situation is an emergency, please call 911 immediately. . Non-Emergent Contact Non-Emergency issues call your: [facility] . . "Provider Documentation" section prepared by Celia Magallanes. .
[2017-11-03 15:30] VITALS: BP 109/56; PULSE 60; PULSE 62; TEMP 36.8; O2SAT 98; Ht 157.5 cm; Wt 72.8 kg
[2017-11-03 15:54] VITALS: BP 109/56; PULSE 62; TEMP 36.8; O2SAT 98
[2017-11-03] MEDS ORDERED: IV FLUIDS COMPLETED PRN (16:00)
[2017-11-03 19:33] VITALS: BP 99/56; PULSE 60; TEMP 36.4; O2SAT 96
[2017-11-03] MEDS ORDERED: SIMVASTATIN 40 MG TAB PO SCH (21:00)
[2017-11-03] MEDS ORDERED: LOSARTAN POTASSIUM 25 MG TAB PO SCH (21:00)
[2017-11-03] MEDS: OXYCODONE/ACETAMINOPHEN 5-325 TAB PO PRN (21:09)
[2017-11-04 00:05] VITALS: BP 113/60; PULSE 60; TEMP 36.6; O2SAT 97
[2017-11-04] MEDS: OXYCODONE/ACETAMINOPHEN 5-325 TAB PO PRN (00:59)
--- NOTE | 2017-11-04 07:12 | DIAGNOSTIC IMAGING REPORT ---
CHEST 2 VIEWS ROUTINE CLINICAL HISTORY: EXACT TIME ORDERED Evaluate for pneumothorax and lead placement COMPARISON STUDY: 04/03/2016 FINDINGS: Prominent bipolar cardiac pacemaker in good position. No evidence pneumothorax. Lobulation central left hemidiaphragm. Lungs appear clear. IMPRESSION: Bipolar cardiac pacemaker in good position. The above report was generated using voice recognition software. It may contain grammatical, syntax or spelling errors. Electronically signed by: Amador Lopez M.D. 11/04/2017 7:10 AM Dictated Date/Time: 11/04/2017 7:10 AM
[2017-11-04 07:38] VITALS: BP 141/52; PULSE 62; TEMP 36.5; O2SAT 95
[2017-11-04 08:38] VITALS: BP 141/52; PULSE 62; TEMP 36.5; O2SAT 95
[2017-11-04] MEDS ORDERED: ASPIRIN 81 MG ECTAB PO SCH (09:00)
[2017-11-04] MEDS ORDERED: HYDROCHLOROTHIAZIDE 25 MG TAB PO SCH (09:00)
--- NOTE | 2017-11-04 09:50 | Discharge Summary ---
Discharge Summary Date of Service Nov 04, 2017. Discharge Summary Admission Date: Nov 03, 2017 at 14:29 Discharge Date: Nov 04, 2017 Discharge Disposition: Home Principal Diagnosis: SSS s/p dual chamber pacemaker Secondary Diagnoses/Problems: 2. CAD h/o PTCA to LAD cath in 08/05 [employer] of diagonal with left to left collaterals, 30% ostial and Mid RCA 3. HTN 4. HLD 5. Obesity 6. IBS 7. Anxiety 8. GERD 9. Hiatal Hernia 10. Cholelithiasis 11. OA 12. Diverticulitis Procedures: dual chamber rate responsive permanent pacemaker with peripheral venogram under fluoroscopic guidance Medication Reconciliation Continued Medications: Acetaminophen (Tylenol Arthritis Ext Rel) 650 Mg Cplt 650 MG PO Q8H PRN for Pain, CAP Albuterol Sulfate (Proventil Hfa) 108 Mcg/Act Aer 2 PUFFS INH Q4H PRN for SOB/Wheezing Aspirin (Aspirin Ec) 81 Mg Tab 81 MG PO DAILY Buspirone Hcl (Buspirone Hcl) 5 Mg Tab 1.25 MG PO BID, TAB 2 Refills Cholecalciferol (Vitamin D3) 400 Unit Chw DAILY Clotrimazole W/ Betamethasone (Lotrisone) 1 Cre Cre 1 APPLN TOP BID, GM Doxycycline Hyclate (Doxycycline Hyclate) 100 Mg Tab 50 MG PO DAILY PRN for ROSACEA, TAB Estradiol (Estradiol) 0.5 Mg Tab 0.5 MG PO Q2D Hydrochlorothiazide (Hctz) 25 Mg Tab 12.5 MG PO 4x per week, TAB Hydrocortisone (Rectal) (Proctozone-Hc) 2.5 % Cre 1 APPLN SC BID PRN for Hemorrhoids NO LONGER THAN 2 WEEKS CONSECUTIVELY Loperamide Hcl (Imodium) 2 Mg Cap 2 MG PO QID PRN for Diarrhea, CAP Lorazepam (Ativan) 0.5 Mg Tab 0.5 MG PO Q8 PRN for Anxiety, TAB Losartan Potassium (Losartan Potassium) 25 Mg Tab 12.5 MG PO QPM Metronidazole (Topical) (Metrogel) 0.75 % Gel 1 APPLN TD BID Nitroglycerin (Nitrostat) 0.4 Mg Tab 0.4 MG UT UD PRN for Chest Pain 1 TAB UNDER TONGUE NEEDED FOR CP MAXIMUM OF 3 DOSES Potassium Chloride (Potassium Chloride Er) 10 Meq Tab 20 MEQ PO DAILY, TAB Prednisone (Deltasone) 20 Mg Tab 10 MG PO PRN/UD PULMONARY RESCUE KIT: TAKE 5 TABS X 2 DAYS TAKE 4 TABS X 2 DAYS TAKE 3 TABS X 2 DAYS TAKE 2 TABS X 2 DAYS TAKE 1 TAB X 2 DAYS. Probiotic Product (Probiotic) 1 Cap Cap 1 CAP PO QAM Ranitidine (Zantac) 150 Mg Tab 150 MG PO QPM PRN for GI Upset, TAB Simvastatin (Zocor) 40 Mg Tab 40 MG PO QPM, TAB Sucralfate (Carafate) 1 Gm Tab 1 GM PO QID PRN for REFLUX, TAB [Hemp Oil] () 15 DROPS PO DAILY Admission Information Physical Exam (per Admitting): aaox3, NAD NC/AT EOMI Supple No JVD NRL S1.S2 bradycardia, no murmur CTA b/l No w/r/r Soft NT/ND No focal deficits Skin intact Hospital Course Pt admitted for elective pacemaker insertion due to SSS. Underwent procedure without any complications and monitored overnight and discharged home. Total time spent on discharge = > 30 minutes This includes examination of the patient, discharge planning, medication reconciliation, and communication with other providers. Discharge Instructions ACTIVITY RECOMMENDATIONS: * Do not raise affected arm over head for 4 weeks. SPECIAL CARE INSTRUCTIONS: * If bleeding occurs, apply direct pressure to area for 5 minutes. * Call your doctor if you have severe pain, fever, drainage or bleeding at site. * Keep dressing on and dry for 48 hours then remove. * Keep any scheduled doctor's appointment. * Implant Card - hand held device with website information given. SKIN IRRITATION: * You may experience some redness and/or swelling in the area where radiation was administered. If any skin irritation occurs, please contact your family physician. FOLLOW UP VISIT: Keep any scheduled doctor appointments.
--- NOTE | 2017-11-04 18:42 | OPERATIVE REPORT ---
DATE OF OPERATION: 11/04/2017 PREOPERATIVE DIAGNOSIS: Sick sinus syndrome. POSTOPERATIVE DIAGNOSIS: Sick sinus syndrome. PROCEDURE: Dual chamber rate responsive permanent pacemaker under fluoroscopic guidance along with the peripheral venogram. SURGEON: Celia Magallanes DO ASSISTANTS: None. ANESTHESIA: Monitored conscious sedation administered under my supervision by Concha Bradley. Start time 1309; end time 1412, a total of 9 mg of Versed, 200 mcg of fentanyl. IV FLUIDS: 100 mL. BLOOD LOSS: Less than 20 mL. Urine output, not applicable. SPECIMENS: None. FINDINGS: See below. DRAINS: None. ADDITIONAL MEDS: 10 mL of Isovue contrast. INDICATIONS: This is a 71-year-old female with a past medical history for coronary artery disease, history of PTCA to the LAD when she was in her 40s. Most recent cardiac catheterization in 07/2016 showed that there was a chronic total occlusion of the diagonal with left to left collaterals and 30% ostial as well as mid RCA disease, hypertension, hyperlipidemia, obesity, irritable bowel syndrome, anxiety, gastroesophageal reflux disease, hiatal hernia, cholelithiasis, osteoarthritis, and diverticulitis. She has been followed closely by general cardiology with evidence of sick sinus syndrome that has now become symptomatic; so she was recommended a pacemaker. CONSENT: Consent was obtained prior to the patient going into electrophysiology lab. Patient was informed of the risks, benefits, and alternatives to the procedure. Risks include but not limited to sudden cardiac , cardiac arrhythmias, cerebrovascular accident, myocardial infarction, injury to the blood vessels, chamber of the heart, lung, bleeding, and infection. The patient understood these risks and agreed to the procedure as planned. Informed consent was obtained. DESCRIPTION OF THE PROCEDURE: The patient was brought into the electrophysiology lab in a fasting state. She was connected to continuous quality assurance monitor body. A timeout was performed to ensure patient's identity and procedure correctly. The patient was prepped and draped over the left infraclavicular space in normal surgical standard fashion. Monitored conscious was given throughout the procedure for patient's comfort level. [place] precautions maintained throughout the procedure. 20 mL of 1% lidocaine, bupivacaine mixture were given in left deltopectoral groove. Incision was made in left deltopectoral groove. Blunt dissection was performed down to try to identify cephalic vein; however, none could initially be identified, so we did a peripheral venogram using 10 mL of IV contrast diluted in 10 mL of saline followed by 20 mL flush. This did identify the cephalic vein as well as an axillary, however, the cephalic vein must have been under the muscle. So I opted to do an axillary stick without any problem. Access was obtained and a guidewire was inserted. An 8-[place] sheath was inserted over the guidewire, the dilator removed. A second guidewire was inserted through the 8-[place] sheath to allow for retained venous access. The sheath was removed, flushed, dilator reinserted over it and then it was reinserted over the guidewires. The guidewire and dilator removed and a pacing lead was advanced into the right ventricle. Initially tried to place it in the right ventricular apex; however, the impedance was on the higher side, so we ultimately ended up putting a right ventricular septum. There was adequate pacing and sensing thresholds and no diaphragmatic stimulation with high output pacing. The 8-[place] sheath was peeled away and lead was fixated to pectoralis muscle using 0 silk suture. A second 8-[place] sheath was inserted over the retained guidewire without any resistance. Guidewire and dilator removed. Right atrial lead was then advanced into right atrium and positioned into right atrial appendage under fluoroscopic guidance ultimately using the J preformed curve. There was adequate pacing and sensing thresholds and no diaphragmatic stimulation with high output pacing. The 8-[place] sheath was peeled away and the lead was fixated to pectoralis muscle using 0 silk suture. The pacemaker pocket was created using blunt dissection over the pectoralis muscle within the pectoralis fascia. Pocket was flushed without copious amounts of bacitracin saline wash and inspected for hemostasis. The pulse generator was then attached to the leads, making sure that the pins were in appropriate position, passed the set screws and set screws were all tightened. Pulse generator was then placed in the pocket, making sure that the leads were lying flat beneath the device. A stay stitch using 0 silk suture was used to secure the device to the pectoralis muscle. The incision was then closed in a 3-layer fashion with 2-0 Vicryl interrupted suture followed by 3-0 Vicryl interrupted suture, followed by a 4-0 Monocryl running stitch, and Dermabond was applied. EQUIPMENT: 1. Pulse generator is a [employer] XT DR DEEPAK Avalos, [id number], serial [id number]. 2. Right atrial lead Medtronic 5076-52 cm, serial number [id number]. 3. Right ventricular lead Medtronic 5076-58 cm, serial number [id number] . INTRAOPERATIVE TESTIN. Right atrial lead: P-wave is 2.8 millivolts, impedance 616 ohms, threshold 0.5 volts at 0.8 milliamps. 2. Right ventricular lead: R-waves 4 millivolts, impedance 669 ohms, threshold 0.2 volts at 0.3 milliamps. FINAL MEASUREMENTS THROUGH THE DEVICE: 1. Right atrial lead: P-wave is 3.6 millivolts, impedance 475 ohms, threshold 0.5 volts at 0.4 milliseconds. 2. Right ventricular lead: R-wave is 7.3 millivolts, impedance 532 ohms, threshold 0.5 volts at 0.4 milliseconds. FINAL PARAMETERS: MVP-R 60/130. Right atrial amplitude 3.5 volts, pulse width 0.4 milliseconds, sensitivity 0.3 millivolts. Right ventricular amplitude 3.5 volts, pulse width 0.4 milliseconds, sensitivity 0.9 millivolts. IMPRESSION: Successful implantation of dual chamber rate responsive permanent pacemaker with a peripheral venogram under fluoroscopic guidance secondary to sick sinus syndrome. PLAN: Monitor patient overnight, 12-lead ECG, chest x-ray. She is not allowed to lift left elbow or left shoulder for 1 month. She can shower in 2 days over the incision, do not scrub it. She cannot lift more than 10 pounds with the left arm for 2 weeks. She should continue her home medications. I will defer to primary cardiology for possible starting beta chio. She is to follow up in our [facility] office for device and wound check in 7-10 days. I attest to the content of the Intraoperative Record and any orders documented therein. Any exception s are noted below.
== END 2017-11-04 09:45 | disposition home or self-care (01) ==
LOC: C.ACU 10:58 → ENRESERV 13:52 → C.2E 14:29
PROVIDERS: ADMIT Internal Medicine; ATTEND Internal Medicine
DX: I49.5 Sick sinus syndrome (principal); I10 Essential (primary) hypertension; E78.5 Hyperlipidemia, unspecified; E66.9 Obesity, unspecified; I25.10 Atherosclerotic heart disease of native coronary artery without angina pectoris; M15.9 Polyosteoarthritis, unspecified; L71.9 Rosacea, unspecified; K21.9 Gastro-esophageal reflux disease without esophagitis; M50.30 Other cervical disc degeneration, unspecified cervical region; F41.9 Anxiety disorder, unspecified; D51.9 Vitamin B12 deficiency anemia, unspecified; E55.9 Vitamin D deficiency, unspecified; J45.40 Moderate persistent asthma, uncomplicated; I73.9 Peripheral vascular disease, unspecified; Z79.899 Other long term (current) drug therapy; Z79.82 Long term (current) use of aspirin; Z85.828 Personal history of other malignant neoplasm of skin; Z82.49 Family history of ischemic heart disease and other diseases of the circulatory system; Z82.61 Family history of arthritis; Z84.1 Family history of disorders of kidney and ureter; Z87.891 Personal history of nicotine dependence

== ENCOUNTER 2018-11-16 09:32 | Observation (INO) ==
--- NOTE | 2018-11-16 10:47 | Pre Anesthesia Assessment ---
Date of Service November 16, 2018 Pre Sedation Assessment Vital Signs Temp Pulse Pulse Resp BP BP Pulse Ox 11/17/18 07:38 36.7 C 59 L 17 109/68 94 11/17/18 02:50 36.5 C 62 20 120/76 95 11/16/18 23:15 36.6 C 60 20 108/66 97 11/16/18 19:14 36.7 C 61 16 123/74 96 11/16/18 18:49 36.7 C 59 L 16 123/75 97 11/16/18 17:49 36.5 C 60 16 124/74 97 11/16/18 16:49 36.4 C L 60 16 132/77 97 11/16/18 16:29 36.4 C L 65 16 127/74 98 11/16/18 15:24 36.2 C L 60 19 125/66 97 11/16/18 15:12 96 H 126/77 11/16/18 14:46 60 128/72 97 11/16/18 14:30 60 129/76 97 11/16/18 14:19 59 L 112/71 96 11/16/18 14:00 56 L 138/74 96 11/16/18 13:48 125/76 11/16/18 13:40 116/72 11/16/18 13:35 36.4 C L 59 L 14 113/73 95 11/16/18 10:33 36.5 C 62 16 176/83 H 98 Cardiovascular RRR, no murmur, no edema Respiratory normal respiratory effort, lungs clear to auscultation Pre-Sedation Airway Assessment Smoking Status: Former smoker Mallampati Class: II ASA: ASA3 Notes The planned sedation has been discussed with the patient. Informed Consent was obtained. I have identified the patient, determined the appropriateness of sed ation and have assessed the patient immediately prior to the procedure. All medicine(s) and interventions are by my order.
--- NOTE | 2018-11-16 10:47 | History & Physical Bridge Note ---
Date of Service November 16, 2018 History & Physical Bridge Note I have examined the patient, reviewed the History & Physical and in the interval since the performance of the History & Physical I have noted the following changes of clinical significance: no changes noted
[2018-11-16] MEDS ORDERED: fentaNYL citrate 100 MCG/2 ML VIAL ONE (11:10)
[2018-11-16] MEDS ORDERED: NiCARDipine HCL INJ 2.5 MG/ML 10 ML AMP ONE (11:10)
[2018-11-16] MEDS ORDERED: HEPARIN (PORCINE) 1000 UNIT/ML 10 ML (CATH LAB USE ONLY) ONE ×2 (11:10→12:41)
[2018-11-16] MEDS ORDERED: NITROGLYCERIN/D5W 100MCG/ML 20ML SYR ONE (11:10)
[2018-11-16] MEDS ORDERED: MIDAZOLAM HCL 1 MG/ML 2ML VIAL ONE ×3 (11:10→12:46)
[2018-11-16] MEDS ORDERED: ONDANSETRON INJ 2 MG/ML 2 ML VIAL IV PRN ×2 (12:20→13:04)
[2018-11-16] MEDS ORDERED: NITROGLYCERIN SL 0.4 MG/TAB TAB SL PRN (12:20)
[2018-11-16] MEDS ORDERED: ALUMINUM/MAGNESIUM SUSP 30 ML UDC PO PRN (12:20)
[2018-11-16] MEDS ORDERED: ACETAMINOPHEN 325 MG TAB PO PRN (12:20)
--- NOTE | 2018-11-16 12:20 | Post Anesthesia Assessment ---
Date of Service November 16, 2018 Post Sedation Assessment Vital Signs Temp Pulse Pulse Resp BP BP Pulse Ox 11/17/18 07:38 36.7 C 59 L 17 109/68 94 11/17/18 02:50 36.5 C 62 20 120/76 95 11/16/18 23:15 36.6 C 60 20 108/66 97 11/16/18 19:14 36.7 C 61 16 123/74 96 11/16/18 18:49 36.7 C 59 L 16 123/75 97 11/16/18 17:49 36.5 C 60 16 124/74 97 11/16/18 16:49 36.4 C L 60 16 132/77 97 11/16/18 16:29 36.4 C L 65 16 127/74 98 11/16/18 15:24 36.2 C L 60 19 125/66 97 11/16/18 15:12 96 H 126/77 11/16/18 14:46 60 128/72 97 11/16/18 14:30 60 129/76 97 11/16/18 14:19 59 L 112/71 96 11/16/18 14:00 56 L 138/74 96 11/16/18 13:48 125/76 11/16/18 13:40 116/72 11/16/18 13:35 36.4 C L 59 L 14 113/73 95 11/16/18 10:33 36.5 C 62 16 176/83 H 98 Recovery Score Activity: Moves 4 extremities Respiration: Deep Breath/Cough Circulation: +/-20% PreAnes Value Consciousness: Fully Awake Oxygen Saturation: > 92% On Room Air Post Sedation Plan On clinical assessment, the patient appears to have tolerated the sedation without complications. Patient is recovering as anticipated. Patient will continue to be monitored by nursing and may be discharged when sedation discharge criteria are met per below protocol. Upon Completions of procedure and additional 15 minutes continue every 5 minute vital signs and the P.A.R. score; then discharge to a Phase I or Fast Track to Phase II per the following guidelines: * Discharge Patient to appropriate Phase II area if PAR is 8 or greater or return to pre- procedure baseline. The post - procedure orders will be as directed. * If PAR score is less than 8 or not return to pre-procedure baseline then patient will follow Phase I monitoring till PAR is reached for Phase II. The Phase I may be done in procedure room or may call to secure a Phase I area. * If naloxone or flumazenil are used for reversal, hold in Phase I for continued monitoring from when last reversal dose was given for a minimum of 60 minutes or longer pending the nurse and/or physician discretion of patient condition before discharge to Phase II. Please call the Sedation Physician to re-evaluate and complete post-note for discharge to Phase II area. Do NOT discharge from procedure sedation or Phase 1 until post- sedation evaluation note is complete by procedure /sedation MD Sedation Discharge Instructions to be given to the patient at discharge to home.
--- NOTE | 2018-11-16 12:36 | Cardiac Catheterization ---
Cardiac Cath Procedure Full Procedure Date November 16, 2018 Pre-Procedure Diagnosis Pre-Procedure Diagnosis: Angina and CAD AUC Score AUC Score: 7 Post-Procedure Diagnosis Post-Procedure Diagnosis: Severe CAD Procedure(s) Performed Procedure(s) Performed: Coronary Angiography, Left Heart Cath and Femoral Artery Angiography Marketing Account Executive Akash Mccabe DO Scenic Artist(s) Mj PATIENT SERVICE ASSOCIATE Estimated Blood Loss Estimated Blood Loss: 8cc Medication(s) Medication(s): Fentanyl, Lidocaine 1% and Versed Summary of Findings Severe, moderately calcified, 70% ostial RCA stenosis. Catheter damping noted on engagement. Patent mid RCA stent. Chronic diagonal occlusion Hemodynamics Rest Ao:: 108/52/76 Final Ao: 120/53/81 LV: 122/0/8 Recommendations Recommendations: PCI without planned CABG Specimens Specimens: None Radiation Exposure (mGy) 833 Contrast (mls) 50 Fluids (cc crystalloids) Fluids (cc crystalloids): 87cc Nss Anesthesia Moderate sedation. Start 11:18. End 12:16. Sedation monitor: Caleb KAUR Procedural Complication(s) None Disposition Patient remained in cathlab for PCI of ostial RCA ACC Data: [place] Cardiac Status Clinical evaluation leading to the procedure CAD Presenation: Unstable angina Anginal Classification: CCS III Heart Failure: No Imaging Studies Past 6 Months: Yes Stress Studies Past 6 Months: No Coronary Anatomy Dominant: Right Left Main (% Stenosis): Normal LAD (% Stenosis): Proximal (20%) and Mid (20% diffuse) D1 (% Stenosis): Ostial (20% taper) D2 (% Stenosis): Ostial (100%, fills via left to left collaterals.) Circumflex (% Stenosis): Ostial (consists of marginal branch vessel) OM1 (% Stenosis): Mid (10%) RCA (% Stenosis): Ostial (70%, moderate calcification, +damping with engagement), Proximal (30% moderate calcification) and Mid (patent stent) R PDA (% Stenosis): Normal R PL1 (% Stenosis): Normal Diagnostic Physicians Name: Akash Mccabe DO Closure Device Recommendations: PCI without planned CABG
--- NOTE | 2018-11-16 13:02 | Post Anesthesia Assessment ---
Date of Service November 16, 2018 Post Sedation Assessment Vital Signs Temp Pulse Resp BP Pulse Ox 11/16/18 10:33 97.7 F 62 16 176/83 H 98 Recovery Score Activity: Moves 4 extremities Respiration: Deep Breath/Cough Circulation: +/-20% PreAnes Value Consciousness: Fully Awake Oxygen Saturation: > 92% On Room Air Discharge Sedation Level of Care: Fast Track Phase II Post Sedation Plan On clinical assessment, the patient appears to have tolerated the sedation without complications. Patient is recovering as anticipated. Patient will continue to be monitored by nursing and may be discharged when sedation discharge criteria are met per below protocol. Upon Completions of procedure and additional 15 minutes continue every 5 minute vital signs and the P.A.R. score; then discharge to a Phase I or Fast Track to [facility] II per the following guidelines: * Discharge Patient to appropriate Phase II area if PAR is 8 or greater or return to pre- procedure baseline. The post - procedure orders will be as directed. * If PAR score is less than 8 or not return to pre-procedure baseline then patient will follow Phase I monitoring till PAR is reached for Phase II. The Phase I may be done in procedure room or may call to secure a Phase I area. * If naloxone or flumazenil are used for reversal, hold in Phase I for continued monitoring from when last reversal dose was given for a minimum of 60 minutes or longer pending the nurse and/or physician discretion of patient condition before discharge to Phase II. Please call the Sedation Physician to re-evaluate and complete post-note for discharge to Phase II area. Do NOT discharge from procedure sedation or Phase 1 until post- sedation evaluation note is complete by procedure /sedation MD Sedation Discharge Instructions to be given to the patient at discharge to home.
--- NOTE | 2018-11-16 13:04 | Post Operative Brief Note ---
Cardiology Brief Post Op Date of Surgery November 16, 2018 Pre & Post Diagnosis Operation Date: 11/16/18 11:00 <No data on this case meets the specified criteria> Procedure Successful PCI of ostial RCA stenosis with single KIERSTEN (3.0 x 12 Xience Eda; post-dilated with 3.5 NC). Data Sme Jd Mclaughlin MD [facility] Mj Estimated Blood Loss 10 Findings Consistent with Post-Op Diagnosis Complications none Disposition Accompanied Patient To Recovery: No Disposition: PCU
[2018-11-16] MEDS ORDERED: NON-FORMULARY MEDICATION (Acetaminophen [Tylenol Arthritis Pain] 650 MG) PO PRN (13:06)
[2018-11-16] MEDS ORDERED: LOPERAMIDE HCL 2 MG CAP PO PRN (13:06)
[2018-11-16] MEDS ORDERED: ALBUTEROL HFA 8 GM INHALER INH PRN (13:06)
[2018-11-16] MEDS ORDERED: LORazepam 0.5 MG TAB PO PRN (13:06)
[2018-11-16] MEDS ORDERED: DICYCLOMINE HCL 10 MG CAP PO PRN (13:06)
[2018-11-16] MEDS ORDERED: SUCRALFATE 1 GM TAB PO PRN (13:06)
[2018-11-16] MEDS ORDERED: CLOPIDOGREL BISULFATE 300 MG TAB ONE (13:13)
[2018-11-16] MEDS ORDERED: SODIUM CHLORIDE 0.9% 1000ML 1,000 ML IV SCH (13:15)
--- NOTE | 2018-11-16 15:27 | Cardiac Catheterization ---
[facility] Data: Production Operator Cardiac Status Clinical evaluation leading to the procedure CAD Presenation: Unstable angina Anginal Classification: CCS III Heart Failure: No Cardiogenic Shock within 24 Hours: No Cardiac Arrest within 24 Hours: No Imaging Studies Past 6 Months: No Stress Studies Past 6 Months: No Diagnostic Physicians Name: Jd Mclaughlin MD Status: Elective Closure Device Percutaneous Entry Location: Radial Closure Device: Angio-Seal Recommendations: PCI without planned CABG PCI Indication: Unstable Angina Lesion Segment Name: ostial RCA Culprit Artery: Yes Stenosis Prior to Rx (%): 70-80 Chronic Total Occlusion: No IVUS: Yes FFR: No Pre-Procedure BAKARI Flow: 3 Previously Treated Lesion: No Lesion Complexity: High/C Lesion Length (mm): 10 Thrombus Present: No Bifurcation Lesion: Yes Guidewire Across Lesion: Stenosis Post-Procedure (%): 0 Post-Procedure BAKARI Flow: 3 Devices(s) Deployed: Yes Yes Intraprocedure Events Significant Disection: No Perforation: No Cardiac Cath Procedure Full Procedure Date November 16, 2018 Pre-Procedure Diagnosis Pre-Procedure Diagnosis: Angina and CAD AUC Score AUC Score: 7 Post-Procedure Diagnosis Post-Procedure Diagnosis: Severe CAD and Successful PCI Procedure(s) Performed Procedure(s) Performed: Coronary Angiography, Drug Eluting Stent and IVUS Credit Balance Specialist Jd Mclaughlin MD Ekg Monitor(s) Mj JUNE Estimated Blood Loss Estimated Blood Loss: 15 Medication(s) Medication(s): Clopidogrel, Fentanyl, Heparin, Nicardipine, Nitroglycerin and Versed Summary of Findings Severe, moderately calcified, 70% ostial RCA stenosis. Catheter damping noted on engagement. Patent mid RCA stent. Chronic diagonal occlusion Indication: Accelerating angina Access: 6 Fr right common femoral artery Catheters: JR4 guide Findings: For full details of patient's coronary angiography please cath report dictated by Dr. Mccabe. Briefly, patient found to have a severe RCA ostial stenosis with catheter dampening with engagement. Decision to proceed with PCI. -- PCI -- Antithrombotic therapy: Heparin, clopidogrel Procedure: RCA cannulated with JR4 guide BMW wire passed across lesion into distal vessel Pro-water wire placed into aorta to charu coronary ostium IVUS used to assess extent of disease, extensive calcification. MLA <5 mm2, with heavy circumferential calcification at the ostium Ostial lesion predilated with 3.0 compliant balloon Dilated lesion stented with 3.0 x 12 mm Xience Eda drug-eluting stent Stent post-dilated with 3.5 noncompliant balloon IC vasodilators administered for spasm Post procedure BAKARI 3 flow, stent well expanded with minimal residual stenosis and no apparent cardiac complications. Arterial Closure: Angio-Seal Summary: 1. Successful PCI of ostial RCA with single drug-eluting stent (3.0 x 12 mm Xience Eda; postdilated with 3.5 NC). Recommendations: To PCU for continued monitoring Loaded with clopidogrel 300 mg in catheter Continue dual-antiplatelet therapy for at least one year Continue statin, and ASCVD risk factor modification Consult cardiac Rehab Hemodynamics Rest Ao:: 117/56/81 Recommendations Recommendations: PCI without planned CABG Specimens Specimens: None Anesthesia Moderate sedation. Procedural Complication(s) None Disposition PCU
[2018-11-16] MEDS ORDERED: ATENOLOL 25 MG TABLET PO SCH (21:00)
[2018-11-16] MEDS ORDERED: DESONIDE CR 15 GM TUBE EXT SCH (21:00)
[2018-11-16] MEDS ORDERED: ASPIRIN 81 MG ECTAB PO SCH (21:00)
[2018-11-16] MEDS ORDERED: SIMVASTATIN 40 MG TAB PO SCH (21:00)
[2018-11-17] MEDS ORDERED: ISOSORBIDE MONO EXTENDED REL 60 MG TABCR PO SCH (09:00)
[2018-11-17] MEDS ORDERED: CLOPIDOGREL BISULFATE 75 MG TAB PO SCH (09:00)
[2018-11-17] MEDS ORDERED: PANTOprazole 40 MG TAB PO SCH (09:00)
[2018-11-17] MEDS ORDERED: hydroCHLOROthiazide 25 MG TAB PO SCH (09:00)
[2018-11-17] MEDS ORDERED: CHOLECALCIFEROL 1,000 UNITS TAB PO SCH (09:00)
--- NOTE | 2018-11-17 09:47 | Cardiology Progress Note ---
Date of Service November 17, 2018 Assessment & Plan (1) CAD (coronary artery disease), [place] coronary artery: (2) S/P right coronary artery (RCA) stent placement: Continue dual antiplatelet therapy uninterrupted for minimum of 12 months post percutaneous intervention. Other cardiovascular medications including isosorbide monohydrate, simvastatin, and hydrochlorothiazide will be continued as previously ordered. Dose of atenolol clarified, patient taking 37.5 mg twice daily. She will continue this dose in the outpatient setting. Outpatient cardiology follow-up scheduled in 1 to 2 weeks. Post cardiac catheterization activity restrictions discussed. Subjective Patient seen and examined at the bedside. Feeling well this morning. No recurrent chest discomfort overnight. Denies palpitations, lightheaded, dizziness, syncope, near syncope. No orthopnea, PND, or lower extremity edema. Reports right-sided groin soreness. Mild ecchymosis noted. Tolerating medications. Offers no other concerns/complaints this time. Review of Systems Review of Systems: All systems reviewed & are unremarkable except as noted in HPI & below Physical Exam Physical Exam: General: NAD, AAO x3, well nourished. HEENT: Normocephalic. Atraumatic. Conjunctiva pink, no scleral icterus. Neck: No carotid bruits, the carotid upstrokes are brisk. No JVD. No HJR Heart: Regular normal S-1 and S-2 no S-3 or S-4 gallop. No murmurs or rub appreciated. PMI is not displaced. No RV heave. Lungs: Clear bilateral without rales , rhonchi, or wheeze. Abdomen: Normal bowel sounds. Soft. Nontender. No masses or organomegaly. No abdominal bruits. Extremities: Right groin ecchymosis. No hematoma. No clubbing, cyanosis, or edema. Pulses: radial=2/4, Dorsalis pedis =2/4, posterior tibial=2/4. Neuro: Cranial nerves grossly intact. No focal motor deficit. Results & Data Vital Signs (Past 12 Hours) Vital Signs Temp Pulse Pulse Resp BP BP Pulse Ox 11/17/18 07:38 36.7 C 59 L 17 109/68 94 11/17/18 02:50 36.5 C 62 20 120/76 95 11/16/18 23:15 36.6 C 60 20 108/66 97 (1) CAD (coronary artery disease), [place] coronary artery Associated angina: with unstable angina [place] vs. transplanted heart: [place] heart Qualified Code(s): I25.110 - Atherosclerotic heart disease of [place] coronary artery with unstable angina pectoris
--- NOTE | 2018-11-17 09:58 | Discharge Summary ---
Date of Service November 17, 2018 Admission HPI Per Admitting Provider Patient presented to the hospital for elective cardiac catheterization. Severe ostial RCA stenosis treated with drug-eluting stent. Mid RCA stent placed in May of this year patent. Principal Diagnosis Coronary artery disease with unstable angina status post drug-eluting stent implantation to the ostial right coronary artery. Discharge Exam General: NAD, AAO x3, well nourished. HEENT: Normocephalic. Atraumatic. Conjunctiva pink, no scleral icterus. Neck: No carotid bruits, the carotid upstrokes are brisk. No JVD. No HJR Heart: Regular normal S-1 and S-2 no S-3 or S-4 gallop. No murmurs or rub appreciated. PMI is not displaced. No RV heave. Lungs: Clear bilateral without rales , rhonchi, or wheeze. Abdomen: Normal bowel sounds. Soft. Nontender. No masses or organomegaly. No abdominal bruits. Extremities: Right groin ecchymosis. No hematoma. No clubbing, cyanosis, or edema. Pulses: radial=2/4, Dorsalis pedis =2/4, posterior tibial=2/4. Neuro: Cranial nerves grossly intact. No focal motor deficit. Discharge Data Allergies Allergy/AdvReac Type Severity Reaction Status Date / Time escitalopram Allergy Unknown itching Verified 06/21/18 17:52 latex Allergy Unknown RASH Verified 06/21/18 17:52 epinephrine AdvReac Intermediate HEART RACES Verified 06/21/18 17:52 chlorhexidine AdvReac Mild rash, Verified 06/21/18 17:52 itching alprazolam AdvReac Unknown HEADACHE Verified 06/21/18 17:52 Consultations 11/16/18 12:20 Consult Cardiac Rehabilitation Routine 11/16/18 13:06 Consult Cardiac Rehabilitation Routine Procedures Performed Operation Date: 11/16/18 11:00 Actual Procedures p Cath, Left with Cors and Vent - DO arlen Boothe Cineradiography w/Routine Exam - DO arlen Boothe Drug Eluting Stent SGl Vessel - Holden Mclaughlin MD s IVUS Coronary Single Vessel - Holden Mclaughlin MD Ordered Studies 11/16/18 07:13 CL Cath Imgs for PACS use only Routine 11/16/18 14:16 CL IVUS Coronary Single Vessel Routine Hospital Course (1) CAD (coronary artery disease), [place] coronary artery: (2) S/P right coronary artery (RCA) stent placement: Continue dual antiplatelet therapy uninterrupted for minimum of 12 months post percutaneous intervention. Other cardiovascular medications including isosorbide monohydrate, simvastatin, and hydrochlorothiazide will be continued as previously ordered. Dose of atenolol clarified, patient taking 37.5 mg twice daily. She will continue this dose in the outpatient setting. Outpatient cardiology follow-up scheduled in 1 to 2 weeks. Post cardiac catheterization activity restrictions discussed. Total Time Total Time Spent Total Time Spent (In Minutes): 30 Total Time Includes: Examination of the Patient, Discharge Planning and Medication Reconciliation Discharge Plan Discharge Items Reason For Visit: Chest Pain Discharge Diagnosis: CAD status post drug-eluting stent implantation to the ostial right coronary artery. Discharge Goals: Improve disease control Activity: Per 'Additional Instructions' section Non-emergency contact: Primary Care Provider and Aviation Project Engineer Call non-emergency contact if: you have any medication questions and your pain is not controlled Follow-up/Referrals: Anders Crawley, DO [Primary Care Provider] - Diet: Heart Healthy [facility] Provider Instructions: ACTIVITY RECOMMENDATIONS: It is common to feel weak and fatigue for a few days. * Do not drive or operate any motorized equipment for the next three days. * Limit stair usage (2 or 3 trips a day only) for the next three days. * Do not lift anything heavier than 10 pounds for the next three days. * Do not engage in vigorous exercise or any sports for the next five days. * You may shower the day after your procedure, but do not immerse the area for three days. Cleanse the site gently with soap and water. SPECIAL CARE INSTRUCTIONS: * You may replace the pressure dressing or band-aid the morning after the procedure. * After your procedure, it is normal to have a small bruise or small lump at the site. Examine your site daily for any change in the bruise or lump, redness, swelling, drainage or numbness. Notify your doctor if any change. BLEEDING: * If there is a small amount of bleeding at the site, lie down and apply firm pressure with a clean cloth for ten minutes. When the bleeding stops, lie quietly keeping the procedure limb straight for six hours. Notify your doctor as soon as possible. * If the bleeding does not stop after ten minutes or if there is a large amount of bleeding or spurting, call 911 immediately. Continue to lie down and hold firm pressure until help arrives. SKIN IRRITATION: * You may experience some redness and/or swelling in the area where radiation was administered. If any skin irritation occurs, please contact your family physician. FOLLOW UP VISIT: Keep any scheduled doctor appointments. Prescriptions: New atenolol 25 mg Tablet 37.5 mg PO BID Qty: 45 RF: 0 Continued buspirone 5 mg Tablet 5 mg PO BID RF: 0 loperamide 2 mg Capsule 2 mg PO Q4H PRN (Reason: Diarrhea) RF: 0 sucralfate [Carafate] 1 gram Tablet 1 g PO QID PRN (Reason: reflux) RF: 0 aspirin 81 mg Tablet,Delayed Release (Dr/Ec) 81 mg PO HS RF: 0 simvastatin 40 mg Tablet 40 mg PO HS RF: 0 acetaminophen [Tylenol Arthritis Pain] 650 mg Tablet Extended Release 650 mg PO DIRECTED PRN (Reason: Pain) RF: 0 potassium 99 mg Tablet 99 mg PO DAILY RF: 0 lorazepam 0.5 mg Tablet 0.5 mg PO TID PRN (Reason: Anxiety) RF: 0 triamcinolone acetonide 0.1 % Ointment 1 applic TOPICAL BID RF: 0 ranitidine HCl 150 mg Tablet 150 mg PO DAILY PRN (Reason: Heartburn) RF: 0 clotrimazole-betamethasone [Lotrisone] 1-0.05 % Cream 1 applic TOPICAL BID RF: 0 metronidazole [MetroCream] 0.75 % Cream 1 applic TOPICAL DAILY RF: 0 nitroglycerin [Nitrostat] 0.4 mg Tablet, Sublingual 0.4 mg sublingual DIRECTED PRN (Reason: Chest Pain) RF: 0 hydrocortisone 2.5 % Cream 1 applic topical BID RF: 0 desonide 0.05 % Lotion 1 applic TOPICAL BID RF: 0 hydrochlorothiazide 25 mg Tablet 12.5 mg PO DAILY RF: 0 estradiol 0.5 mg Tablet 1 dose PO 4XWK RF: 0 albuterol sulfate [Proventil HFA] 90 mcg/actuation Hfa Aerosol Inhaler 2 puff INHALATION Q4 PRN (Reason: Wheezing) RF: 0 dicyclomine 10 mg Capsule 10 mg PO BID PRN (Reason: diarrhea and abdominal pain) RF: 0 cholecalciferol (vitamin D3) [Vitamin D3] 2,000 unit Capsule 2,000 unit PO DAILY RF: 0 Probiotic 3 billion cell Capsule PO DAILY RF: 0 Xiidra 5 % Dropperette 1 drp OPHTHALMIC (EYE) BID RF: 0 Cbd Oil 7.5 drp PO BID PRN (Reason: Pain) RF: 0 pantoprazole [Protonix] 40 mg tablet,delayed release (DR/EC) 40 mg PO DAILY Qty: 30 RF: 1 clopidogrel 75 mg Tablet 75 mg PO DAILY RF: 0 isosorbide mononitrate 60 mg Tablet Extended Release 24 Hr 60 mg PO DAILY RF: 0 Discontinued atenolol 25 mg Tablet 25 mg PO BID RF: 0 Stand-Alone Forms: [facility] Admission Data Admit Date/Time: 11/16/18 12:20 Attending Provider: Akash Mccabe Admit Provider: Akash Mccabe Primary Care Provider: Anders Crawley Service: Medical Other Pending Studies at Discharge: No
[2018-11-17] MEDS ORDERED: ATENOLOL 25 MG TABLET PO SCH (21:00)
== END 2018-11-17 11:30 | disposition home or self-care (01) ==
LOC: CC 09:32 → 2S 09:32
DX: E78.5 Hyperlipidemia, unspecified; E66.9 Obesity, unspecified; I73.9 Peripheral vascular disease, unspecified; I10 Essential (primary) hypertension; K21.9 Gastro-esophageal reflux disease without esophagitis; K58.9 Irritable bowel syndrome, unspecified; Z91.040 Latex allergy status; I25.2 Old myocardial infarction; Z79.899 Other long term (current) drug therapy; I25.110 Atherosclerotic heart disease of native coronary artery with unstable angina pectoris; E55.9 Vitamin D deficiency, unspecified; Z88.8 Allergy status to other drugs, medicaments and biological substances; Z95.0 Presence of cardiac pacemaker; Z79.82 Long term (current) use of aspirin

== ENCOUNTER 2019-05-07 11:25 | Inpatient (IN) ==
[2019-05-07] MEDS ORDERED: ASPIRIN CHEW 324 MG PO STA (11:53)
--- NOTE | 2019-05-07 12:12 | XRay Report ---
SINGLE VIEW CHEST CLINICAL HISTORY: Atypical chest pain. FINDINGS: An AP, portable, upright chest radiograph is compared to study dated 06/21/2018. A 2-lead car diac pacemaker is unchanged in position. The cardiomediastinal silhouette is unremarkable. There is m ild bibasilar scarring/atelectasis. The lungs and pleural spaces are otherwise clear. No pneumothorax is seen. The skeletal structures are osteopenic. The bony thorax is grossly intact. IMPRESSION: No active disease in the chest. ACT 112: Negative or not required by law. Electronically signed by: Chuy Cantor M.D. 05/07/2019 12:11 PM
[2019-05-07 12:14] LABS: Basophils # (auto) 0.03 K/uL (0-0.2); Basophils % (auto) 0.6 %; Hematocrit (blood only) 42.6 % (37-47); Hemoglobin 14.1 g/dL (12.0-16.0); Immature Granulocytes # (auto) 0.01 K/uL (0.00-0.02); Immature Granulocytes % (auto) 0.2 %; Lymphocytes # (auto) 1.49 K/uL (1.2-3.4); Lymphocytes % (auto) 28.9 %; Mean Corpuscular Hemoglobin 29.7 pg (25-34); Mean Corpuscular Hgb Conc 33.1 g/dL (32-36); Mean Corpuscular Volume 89.7 fL (80-100); Mean Platelet Volume 10.2 fL (7.4-10.4); Monocytes # (auto) 0.33 K/uL (0.11-0.59); Monocytes % (auto) 6.4 %; Neutrophils % (auto) 63.9 %; Platelet Count 231 K/uL (130-400); RDW Coefficient of Variation 13.3 % (11.5-14.5); RDW Standard Deviation 43.9 fL (36.4-46.3); Red Blood Count 4.75 M/uL (4.2-5.4); White Blood Count 5.16 K/uL (4.8-10.8)
[2019-05-07 12:25] LABS: Partial Thromboplastin Ratio 0.9; Partial Thromboplastin Time 24.1 Seconds (21.0-31.0); Prothrombin Time 10.1 Seconds (9.0-12.0)
[2019-05-07 12:30] LABS: Alanine Aminotransferase 14 U/L (12-78); Albumin Level 3.5 gm/dl (3.4-5.0); Aspartate Aminotransferase 13 U/L (15-37); BUN Creatinine Ratio 9.9 (10-20); Blood Urea Nitrogen 8 mg/dl (7-18); Calcium 8.9 mg/dl (8.5-10.1); Carbon Dioxide 25 mmol/L (21-32); Chloride 107 mmol/L (98-107); Creatinine Clr Calc Pharmacy 53.5 ml/min; Est GFR (African American) 82.9; Est GFR (Non-African American) 71.5; Glucose 101 mg/dl (70-99); Lipase 74 U/L (73-393); Potassium 4.3 mmol/L (3.5-5.1); Sodium 139 mmol/L (136-145)
[2019-05-07 12:35] LABS: Alkaline Phosphatase 82 U/L (45-117); Bilirubin,Total 0.4 mg/dl (0.2-1); Globulin 3.4 gm/dl (2.5-4.0); Total Protein 6.9 gm/dl (6.4-8.2); Troponin I < 0.015 ng/ml (0-0.045)
--- NOTE | 2019-05-07 15:01 | History & Physical Report ---
Date of Service May 07, 2019 Assessment & Plan (1) Chest pain: (2) CAD (coronary artery disease): -admit to tele -patient presenting from home with reports of midsternal chest tightness with radiation under the right arm -took 2 SL nitro at home without relief if symptoms; currently chest pain free -hx of CAD, most recent stenting 10/2018 (KIERSTEN to ostial RCA) -initial trop negative, EKG shows atrial paced rhythm, no acute ST changes -continue to cycle cardiac enzymes, limited echo to evaluate for wall motion abnormalities -PRN nitro and EKG with further episodes of chest pain -continue ASA, plavix, statin, beta chio, nitrate -cardio consult (3) SSS (sick sinus syndrome): (4) Pacemaker: -no acute issues (5) Anxiety: -continue Buspar and PRN lorazepam (6) IBS (irritable bowel syndrome): -managed with Xifaxin (7) DVT prophylaxis: -SQ Lovenox History of Present Illness Chief Complaint: Chest Pain Primary Care Provider: Anders Crawley DO 73 year old female who presents to the ED for evaluation of chest pain. Patient with history of CAD, most recent stenting 10/2018. Patient reports that she has not felt well over the past couple days. [place] that she is more tired than normal and not herself. Today, patient reports she had midsternal chest tightness with radiation under the right arm. Patient reports she took 2 nitroglycerin at home without any relief of her symptoms. Symptoms did subsequently subside on their own. Patient is currently chest pain-free. She believes her discomfort is similar to what has prompted her cardiac cath and stents in the past. She denies associated shortness of breath, nausea, diaphoresis. No lightheadedness, dizziness, syncopal event. Reports she otherwise been feeling well recently. No abdominal pain, nausea, vomiting, diarrhea. Denies fevers and chills. No urinary symptoms. In the ED, initial troponin is negative and EKG does not show any acute ST changes. Patient was given a full dose aspirin. Allergies Allergy/AdvReac Type Severity Reaction Status Date / Time escitalopram Allergy Unknown itching Verified 05/07/19 12:53 latex Allergy Unknown RASH Verified 05/07/19 12:53 epinephrine AdvReac Intermediate HEART RACES Verified 05/07/19 12:53 chlorhexidine AdvReac Mild rash, Verified 05/07/19 12:53 itching alprazolam AdvReac Unknown HEADACHE Verified 05/07/19 12:53 Home Medications Home Medications Medication Instructions Recorded Confirmed Type Cbd Oil 7.5 drp PO BID PRN 06/16/18 05/07/19 History Probiotic 3 mmu PO QAM 06/16/18 05/07/19 History Xiidra 1 drp OPHTHALMIC (EYE) BID 06/16/18 05/07/19 History acetaminophen [Tylenol Arthritis 650 mg PO DIRECTED PRN 06/16/18 05/07/19 History Pain] albuterol sulfate [Proventil HFA] 2 puff INHALATION Q4 PRN 06/16/18 05/07/19 History aspirin 81 mg PO HS 06/16/18 05/07/19 History buspirone 5 mg PO BID 06/16/18 05/07/19 History cholecalciferol (vitamin D3) 2,000 unit PO QAM 06/16/18 05/07/19 History [Vitamin D3] clotrimazole-betamethasone 1 applic TOPICAL BID 06/16/18 05/07/19 History [Lotrisone] desonide 1 applic TOPICAL BID 06/16/18 05/07/19 History dicyclomine 10 mg PO BID PRN 06/16/18 05/07/19 History estradiol 1 dose PO SUTUTHSA 06/16/18 05/07/19 History hydrochlorothiazide 12.5 mg PO QAM 06/16/18 05/07/19 History hydrocortisone 1 applic TOPICAL BID 06/16/18 05/07/19 History loperamide [Imodium A-D] 2 mg PO Q4H PRN 06/16/18 05/07/19 History lorazepam 0.5 mg PO TID PRN 06/16/18 05/07/19 History metronidazole [MetroCream] 1 applic TOPICAL QAM 06/16/18 05/07/19 History nitroglycerin [Nitrostat] 0.4 mg SUBLINGUAL DIRECTED PRN 06/16/18 05/07/19 History potassium 99 mg PO QAM 06/16/18 05/07/19 History simvastatin 40 mg PO HS 06/16/18 05/07/19 History sucralfate [Carafate] 1 g PO QID PRN 06/16/18 05/07/19 History triamcinolone acetonide 1 applic TOPICAL BID 06/16/18 05/07/19 History clopidogrel 75 mg PO QAM 11/16/18 05/07/19 History isosorbide mononitrate 60 mg PO QAM 11/16/18 05/07/19 History atenolol 37.5 mg PO BID #45 tab 11/17/18 05/07/19 Rx pantoprazole [Protonix] 40 mg PO QAM 05/07/19 05/07/19 History polymyxin B sulf-trimethoprim 1 drp OPHTHALMIC (EYE) Q4H 05/07/19 05/07/19 His tory rifaximin [Xifaxan] 550 mg PO TID 05/07/19 05/07/19 History Past Med/Surg History Medical History Anxiety (Chronic) Asthma (Chronic) CAD (coronary artery disease) (Chronic) per outpatient cardio note: History of anterior wall UT at age 45, PTCA of the LAD at that time. Abnormal stress testing in March 2004 with repeat catheterization on 04-09-04 demonstrating nonobstructive CAD with a total chronic occlusion of a 2nd diagonal branch and mild CAD elsewhere. Cardiac catheterization in July 2016 demonstrating the chronic total occlusion of a diagonal branch with [id number] collaterals, 30% ostial RCA stenosis, and 30% mid RCA stenosis. LVEDP normal, 8 mmHg. Presentation to [facility] May 2018 with unstable angina. Diagnostic cardiac catheterization with severe single-vessel coronary artery disease with an 80% mid RCA stenosis for which she underwent PCI, 3.0 x 18 mm drug-eluting stent implantation by Dr. Mclaughlin Admission to [facility] in October 2018 with unstable angina, status post November 16, 2018 cardiac catheterization which demonstrated a severe, moderately calcified, 70% ostial right coronary artery stenosis with catheter dampening noted on engagement, status post successful PCI the ostial RCA with a single 3.0 x 12 Xience Eda drug-eluting stent. The previously placed mid RCA stent was noted to be patent. Chronic diagonal occlusion with collaterals. Diverticulosis of colon (Chronic) GERD (gastroesophageal reflux disease) (Chronic) History of myocardial infarction (Resolved 03/01/11) "anterior wall UT" HTN (hypertension) (Chronic) IBS (irritable bowel syndrome) (Chronic) Pacemaker (Chronic) SSS (sick sinus syndrome) (Chronic) Surgical History H/O exploratory laparotomy (Resolved) "02/05/15 Dr. Marques Rodriguez" History of cataract extraction (Chronic) History of hysterectomy (Resolved) History of Faisal fundoplication (Resolved) "02/05/[address] Marques Rodriguez" History of PTCA (Chronic) History of tonsillectomy and adenoidectomy (Resolved) S/P repair of paraesophageal hernia (Resolved) "02/04/15 complicated by esophageal perforation" Family History Father Lung cancer Mother Hypertension Social History Preferred Language: [place] Communication Ability: Effective Facilities And Grounds Director Required: No Beliefs That Will Affect Care: None Current Living Situation: Spouse Current Living Situation Comment: Independent appt in nursing home current occupation: retired Other Information That Helps Us Care for You: No Feels Safe at Home: Yes Safety Concerns: Feels Safe At This Time Smoking Status: Former smoker Second Hand Exposure: No ; Hx Alcohol Use: Yes Alcohol type: wine Hx Substance Use: No Review of Systems Review of Systems: ROS per HPI, all other systems reviewed and negative Physical Exam Physical Exam: Please refer to Dr. Reyes's addendum for physical exam. Results & Data Vital Signs (Past 12 Hours) Vital Signs Temp Pulse Pulse Resp BP BP Pulse Ox 05/07/19 14:00 67 16 124/65 98 05/07/19 12:26 63 16 120/64 98 05/07/19 12:01 97 05/07/19 11:47 64 16 150/78 H 98 05/07/19 11:27 36.7 C 71 18 154/101 H 97 Laboratory Results Short CBC 05/07/19 Range/Units 12:05 WBC 5.16 (4.8-10.8) K/uL Hgb 14.1 (12.0-16.0) g/dL Hct 42.6 (37-47) % Plt Count 231 (130-400) K/uL BMP 05/07/19 12:05 Sodium 139 Potassium 4.3 Chloride 107 Carbon Dioxide 25 BUN 8 Creatinine 0.81 Glucose 101 H Calcium 8.9 Cardiac Enzymes 05/07/19 Range/Units 12:05 Troponin I < 0.015 (0-0.045) ng/ml Liver Function 05/07/19 Range/Units 12:05 Total Bilirubin 0.4 (0.2-1) mg/dl AST 13 L (15-37) U/L ALT 14 (12-78) U/L Alkaline Phosphatase 82 (45-117) U/L Albumin 3.5 (3.4-5.0) gm/dl Diagnostic Findings CXR IMPRESSION: No active disease in the chest. Code Status & VTE Plan Code Status Patient is a full code as per my discussion with her. VTE Prophylaxis Plan VTE Prophylaxis will be ordered: Yes Supervising Physician Co-Signing Physician Notes I saw this patient with the Nurse Practitioner, I participated in the history, physical, review of systems, and physical exam. I reviewed the medications with the patient and the Nurse Practitioner and helped reconcile the medications. I helped take a detailed family and social history as well. I formulated the assessment and plan personally with the Nurse Practitioner went over it with the patient. ROS-No Headache, No Visual Changes, No Nausea, No Vomiting, No Fever, No Chills, No Neck Pain or Stiffness, R sided Chest Pain rad to back, No Palpitations, No SOB, No C[place], No Cough, No Sputum, No Wheezing, No Abdominal Pain, No Diarrhea, No Hematemesis, No Hemoptysis, No Unexpected Weight Loss, No Flank pain, No Melena, No Hematochezia, No Frequency, No Urgency, No Burning, No Hematuria, No Rashes, No Diaphoresis. Appetite is Normal Physical Exam Gen-AAO x 3, NAD, Afebrile, Obese Head-NCAT, EOMI, PERRLA, Anicteric Sclera, No Posterior Pharyngeal Erythema Neck-Supple, No JVD, No Thyromegaly, No Masses, No LAD, No Bruits Lungs-Clear to Auscultation Bilaterally, No Rales, No Rhonchi, No Wheezing, No Crepitus Chest-No S4, +S1, +S2, No S3, No Murmurs, No Rubs, No Gallops, No Ectopy Abdomen-Soft, Bowel Sounds Present, Non Tender, Non Distended, No Hepatomegaly, No Splenomegaly, No Palpable Masses, No Rebound, No Rigidity, No Guarding Musculoskeletal-Full Range of Motion Bilaterally, No CVAT Extremities-No Cyanosis, No Clubbing, No Edema Nuero-Cranial Nerves II-XII grossly intact, Motor WNL, DTRs WNL, Strength WNL, Non Focal Psych-Normal Mood (1) CAD (coronary artery disease) Associated angina: with unspecified angina Coronary Disease-Associated Artery/Lesion type: [place] artery [place] vs. transplanted heart: [place] heart Qualified Code(s): I25.119 - Atherosclerotic heart disease of [place] coronary artery with unspecified angina pectoris (2) IBS (irritable bowel syndrome) Irritable bowel syndrome type: with diarrhea Qualified Code(s): K58.0 - Irritable bowel syndrome with diarrhea
[2019-05-07] MEDS ORDERED: NITROGLYCERIN SL 0.4 MG/TAB TAB SL PRN (15:47)
--- NOTE | 2019-05-07 16:44 | Emergency Department Note ---
Entered by Malorie London acting as a scribe for Vitaly oCta DO History of Present Illness General Chief complaint: Back Injury/Pain Stated complaint: STROKE SYMPTOMS Source: patient History of Present Illness Onset (ago): hour(s) 2 Location: chest Radiation: back (right upper ) and extremity (right upper ) Severity: similar to prior episodes Pain Consistency: + intermittent and + now resolved Maximum Pain Intensity: 0 Quality: + other (tightness ) Associated symptoms: + other (negative jaw pain; positive right upper back pain; positive right upper extremity pain ) Treatments prior to arrival: other (nitro ) The patient is a 73 year old female who presents to the Emergency Room with complaints of now resolved intermittent chest pain that began approximately 2 hours prior to arrival. The patient describes this pain as a tightness. She reports that her pain radiates into the right side of her back, into her right shoulder, and down her right arm. The patient states that her back and arm pain have been persistent during this time and have not resolved. She states that her pain felt similar to her prior episode of an MN last year. The patient denies jaw pain. She states that she is not sure if she had shortness of breath at this time as she has shortness of breath at baseline. The patient states that she took 2 Nitro for her symptoms. The patient reports that she had her first MN at age 48. Home Medications Home Medications Medication Instructions Recorded Confirmed Type Cbd Oil 7.5 drp PO BID PRN 06/16/18 05/07/19 History Probiotic 3 mmu PO QAM 06/16/18 05/07/19 History Xiidra 1 drp OPHTHALMIC (EYE) BID 06/16/18 05/07/19 History acetaminophen [Tylenol Arthritis 650 mg PO DIRECTED PRN 06/16/18 05/07/19 History Pain] albuterol sulfate [Proventil HFA] 2 puff INHALATION Q4 PRN 06/16/18 05/07/19 History aspirin 81 mg PO HS 06/16/18 05/07/19 History buspirone 5 mg PO BID 06/16/18 05/07/19 History cholecalciferol (vitamin D3) 2,000 unit PO QAM 06/16/18 05/07/19 History [Vitamin D3] clotrimazole-betamethasone 1 applic TOPICAL BID 06/16/18 05/07/19 History [Lotrisone] desonide 1 applic TOPICAL BID 06/16/18 05/07/19 History dicyclomine 10 mg PO BID PRN 06/16/18 05/07/19 History estradiol 1 dose PO SUTUTHSA 06/16/18 05/07/19 History hydrochlorothiazide 12.5 mg PO QAM 06/16/18 05/07/19 History hydrocortisone 1 applic TOPICAL BID 06/16/18 05/07/19 History loperamide [Imodium A-D] 2 mg PO Q4H PRN 06/16/18 05/07/19 History lorazepam 0.5 mg PO TID PRN 06/16/18 05/07/19 History metronidazole [MetroCream] 1 applic TOPICAL QAM 06/16/18 05/07/19 History nitroglycerin [Nitrostat] 0.4 mg SUBLINGUAL DIRECTED PRN 06/16/18 05/07/19 History potassium 99 mg PO QAM 06/16/18 05/07/19 History simvastatin 40 mg PO HS 06/16/18 05/07/19 History sucralfate [Carafate] 1 g PO QID PRN 06/16/18 05/07/19 History triamcinolone acetonide 1 applic TOPICAL BID 06/16/18 05/07/19 History clopidogrel 75 mg PO QAM 11/16/18 05/07/19 History isosorbide mononitrate 60 mg PO QAM 11/16/18 05/07/19 History atenolol 37.5 mg PO BID #45 tab 11/17/18 05/07/19 Rx pantoprazole [Protonix] 40 mg PO QAM 05/07/19 05/07/19 History polymyxin B sulf-trimethoprim 1 drp OPHTHALMIC (EYE) Q4H 05/07/19 05/07/19 History rifaximin [Xifaxan] 550 mg PO TID 05/07/19 05/07/19 History Allergies Allergy/AdvReac Type Severity Reaction Status Date / Time escitalopram Allergy Unknown itching Verified 05/07/19 12:53 latex Allergy Unknown RASH Verified 05/07/19 12:53 epinephrine AdvReac Intermediate HEART RACES Verified 05/07/19 12:53 chlorhexidine AdvReac Mild rash, Verified 05/07/19 12:53 itching alprazolam AdvReac Unknown HEADACHE Verified 05/07/19 12:53 Past Med/Surg History Medical History Anxiety (Chronic) Asthma (Chronic) CAD (coronary artery disease) (Chronic) per outpatient cardio note: History of anterior wall MN at age 45, PTCA of the LAD at that time. Abnormal stress testing in March 2004 with repeat catheterization on 04-09-04 demonstrating nonobstructive CAD with a total chronic occlusion of a 2nd diagonal branch and mild CAD elsewhere. Cardiac catheterization in July 2016 demonstrating the chronic total occlusion of a diagonal branch with [id number] collaterals, 30% ostial RCA stenosis, and 30% mid RCA stenosis. LVEDP normal, 8 mmHg. Presentation to [facility] May 2018 with unstable angina. Diagnostic cardiac catheterization with severe single-vessel coronary artery disease with an 80% mid RCA stenosis for which she underwent PCI, 3.0 x 18 mm drug-eluting stent implantation by Dr. Mclaughlin Admission to [facility] in October 2018 with unstable angina, status post November 16, 2018 cardiac catheterization which demonstrated a severe, moderately calcified, 70% ostial right coronary artery stenosis with catheter dampening noted on engagement, status post successful PCI the ostial RCA with a single 3.0 x 12 Xience Eda drug-eluting stent. The previously placed mid RCA stent was noted to be patent. Chronic diagonal occlusion with collaterals. Diverticulosis of colon (Chronic) GERD (gastroesophageal reflux disease) (Chronic) History of myocardial infarction (Resolved 03/01/11) "anterior wall MN" HTN (hypertension) (Chronic) IBS (irritable bowel syndrome) (Chronic) Pacemaker (Chronic) SSS (sick sinus syndrome) (Chronic) Surgical History H/O exploratory laparotomy (Resolved) "02/05/15 Dr. Marques Rodriguez" History of cataract extraction (Chronic) History of hysterectomy (Resolved) History of Faisal fundoplication (Resolved) "02/05/[address] Marques Rodriguez" History of PTCA (Chronic) History of tonsillectomy and adenoidectomy (Resolved) S/P repair of paraesophageal hernia (Resolved) "02/04/15 complicated by esophageal perforation" Family History Father Lung cancer Mother Hypertension Social History Preferred Language: Greenlandic Communication Ability: Effective Naturopathic Doctor Required: No Beliefs That Will Affect Care: None Current Living Situation: Spouse Current Living Situation Comment: Independent appt in care home current occupation: retired Other Information That Helps Us Care for You: No Feels Safe at Home: Yes Safety Concerns: Feels Safe At This Time Smoking Status: Former smoker Second Hand Exposure: No ; Hx Alcohol Use: Yes Alcohol type: wine Hx Substance Use: No Review of Systems See HPI for pertinent positives & negatives. and A total of 10 systems reviewed and were otherwise negative Physical Exam Vital Signs Vital Signs - 24 hr 05/07/19 11:27 05/07/19 11:47 05/07/19 12:01 Temperature 36.7 C Temperature Source Oral Pulse Rate 71 Pulse Rate [Finger] 64 Respiratory Rate 18 16 Respiratory Effort / Characteristics Non-Labored Respiratory Depth Normal Blood Pressure 154/101 H Blood Pressure [Right Arm] 150/78 H Blood Pressure Mean 118 Blood Pressure Mean [Right Arm] 102 Blood Pressure Position Sitting Pulse Oximetry 97 98 97 Oxygen Delivery Method Room Air Room Air Sepsis Recent Fever Within 48 Hours No Sepsis New/Unexplained Change in Mental Status No Sepsis Action Taken by Nursing No Action Required 05/07/19 12:26 05/07/19 14:00 Temperature Temperature Source Pulse Rate Pulse Rate [Finger] 63 67 Respiratory Rate 16 16 Respiratory Effort / Characteristics Respiratory Depth Blood Pressure Blood Pressure [Right Arm] 120/64 124/65 Blood Pressure Mean Blood Pressure Mean [Right Arm] 82 84 Blood Pressure Position Pulse Oximetry 98 98 Oxygen Delivery Method Room Air Sepsis Recent Fever Within 48 Hours Sepsis New/Unexplained Change in Mental Status Sepsis Action Taken by Nursing GENERAL: Anxious, sitting up in bed, disheveled, non-toxic. EYE EXAM: normal conjunctiva PERRL and EOM's intact OROPHARYNX: no exudate, no erythema, lips, buccal mucosa, and tongue normal and mucous membranes are moist NECK: supple, no nuchal rigidity, no adenopathy, non-tender LUNGS: Clear to auscultation. Normal chest wall mechanics HEART: no murmurs, S1 normal and S2 normal ABDOMEN: abdomen soft, non-tender, normo-active bowel sounds, no masses, no rebound or guarding. BACK: Tenderness throughout the right inferior scapula tracking up into her arm. Back is symmetrical on inspection and there is no deformity, no midline tenderness, no CVA tenderness. SKIN: no rashes and no bruising UPPER EXTREMITIES: upper extremities are grossly normal. LOWER EXTREMITIES: No pitting edema. NEURO EXAM: Normal sensorium, cranial nerves II-XII intact, normal speech, no weakness of arms, no weakness of legs. No drift. Finger to nose intact. Gross sensation intact. Heel to hinton and rapid alternating movements intact. Course Course ED COURSE: Vital signs were reviewed and showed hypertension. The patients medical record was reviewed The above diagnostic studies were performed and reviewed. ED treatments and interventions as stated above. 1142: The patient was evaluated in room B3B. A complete history and physical examination was performed. 1344: Upon reevaluation, the patient is resting comfortably and her pain has resolved. I discussed my findings with the patient and she understands and agrees with the treatment plan. Based on the patients age, coexisting illnesses, exam and lab findings the decision to treat as an inpatient was made. The patient remained stable while under my care. 1350: I discussed the case with Jasmin BURLESON who accepts the p atient for further evaluation under Dr. Pratt Hospitalist service. Administered Medications Discontinued Medications Aspirin (Aspirin) 324 mg PO NOW STA Stop: 05/07/19 11:54 Last Admin: 05/07/19 12:03 Dose: 324 mg Documented by: [id number] Medical Decision Making Differential Diagnosis Differential diagnoses includes but is not limited to acute coronary syndrome, myocardial infarction, pericarditis, pulmonary embolus, aortic dissection, pneumonia, pneumothorax, musculoskeletal, shingles, esophageal. Medical Records Attestation: I reviewed the patient's medical records. Home Medications Current Medication List: was personally reviewed by me Laboratory Data Attestation: I reviewed the patient's lab results. Result diagrams: 05/07/19 12:05 05/07/19 12:05 Lab Results 05/07/19 05/07/19 05/07/19 Range/Units 12:05 12:05 12:05 WBC 5.16 (4.8-10.8) K/uL RBC 4.75 (4.2-5.4) M/uL Hgb 14.1 (12.0-16.0) g/dL Hct 42.6 (37-47) % MCV 89.7 (80-100) fL MCH 29.7 (25-34) pg MCHC 33.1 (32-36) g/dL RDW Std Deviation 43.9 (36.4-46.3) fL RDW Coeff of Nanette 13.3 (11.5-14.5) % Plt Count 231 (130-400) K/uL MPV 10.2 (7.4-10.4) fL Immature Gran % (Auto) 0.2 % Neut % (Auto) 63.9 % Lymph % (Auto) 28.9 % [place] % (Auto) 6.4 % Eos % (Auto) 0.0 % Baso % (Auto) 0.6 % Immature Gran # (Auto) 0.01 (0.00-0.02) K/uL Neut # (Auto) 3.30 (1.4-6.5) K/uL Lymph # (Auto) 1.49 (1.2-3.4) K/uL [place] # (Auto) 0.33 (0.11-0.59) K/uL Eos # (Auto) 0.00 (0-0.5) K/uL Baso # (Auto) 0.03 (0-0.2) K/uL PT 10.1 (9.0-12.0) Seconds INR 1.0 (0.9-1.1) APTT 24.1 (21.0-31.0) Seconds PTT Ratio 0.9 Sodium 139 (136-145) mmol/L Potassium 4.3 (3.5-5.1) mmol/L Chloride 107 (98-107) mmol/L Carbon Dioxide 25 (21-32) mmol/L Anion Gap 7.0 (3-11) BUN 8 (7-18) mg/dl Creatinine 0.81 (0.6-1.2) mg/dl Est Cr Clr Drug Dosing 53.5 ml/min Est GFR ( Amer) 82.9 Est GFR (Non-Af Amer) 71.5 BUN/Creatinine Ratio 9.9 L (10-20) Glucose 101 H (70-99) mg/dl Calcium 8.9 (8.5-10.1) mg/dl Total Bilirubin 0.4 (0.2-1) mg/dl AST 13 L (15-37) U/L ALT 14 (12-78) U/L Alkaline Phosphatase 82 (45-117) U/L Troponin I < 0.015 (0-0.045) ng/ml Total Protein 6.9 (6.4-8.2) gm/dl Albumin 3.5 (3.4-5.0) gm/dl Globulin 3.4 (2.5-4.0) gm/dl Albumin/Globulin Ratio 1.0 (0.9-2) Lipase 74 (73-393) U/L Imaging Data Radiologist's Impression: Radiology results as stated below per my review and the radiologist's interpretation: SINGLE VIEW CHEST CLINICAL HISTORY: Atypical chest pain. FINDINGS: An AP, portable, upright chest radiograph is compared to study dated 06/21/2018. A 2-lead cardiac pacemaker is unchanged in position. The cardiomediastinal silhouette is unremarkable. There is mild bibasilar scarring/atelectasis. The lungs and pleural spaces are otherwise clear. No pneumothorax is seen. The skeletal structures are osteopenic. The bony thorax is grossly intact. IMPRESSION: No active disease in the chest. ACT 112: Negative or not required by law. Electronically signed by: Chuy Cantor M.D. 05/07/2019 12:11 PM ECG Data Attestation: I personally reviewed and interpreted this ECG as follows: Indication: + chest pain Rate (beats per minute): 62 Rhythm: + other (atrial paced) ECG Intervals/blocks: + Normal QT-c ECG [place]: + Normal ECG Findings: no PVCs Blood Pressure Blood Pressure Findings: Normal blood pressure MDM Narrative Patient is a 73-year-old female with a past medical history of CAD, MN with 2 caths this past year with stents placements and sick sinus syndrome that presents the ER initially concern for right arm pain and possible stroke. On exam she has no focal deficit. She denies any weakness. She also admits to pre cordial chest heaviness which was intermittent for about an hour. She notes this felt similar to her previous events when she did receive stents. She did have an extremely tough time elaborating exactly what was happening. She notes that she did not move her right upper extremity because it felt like it was going to hurt but did not hurt with movement. Unable to describe the chest pain other than a heaviness in the middle of her chest. IV was established blood work was obtained and shows no significant leukocytosis or anemia. INR unremarkable. BMP with LFTs bilirubin lipase and troponin was negative. EKG was paced. Chest x-ray unremarkable. Do favor that the right arm pain was like ly musculoskeletal although it did not change with movement. Again no focal deficit. Not neurologic. Discussed with hospitalist patient was updated bedside due to extensive cardiac history and chest pain that felt similar to her previous cardiac chest pain. Impression & Plan Precordial chest pain, Arm pain, Right shoulder pain Discharge Plan Visit Data *Final* Discharge Date/Time: 05/07/19 14:51 Chief Complaint: Back Injury/Pain Stated Complaint: STROKE SYMPTOMS ED Provider: Vitaly Cota Discharge Problem: Precordial chest pain, Arm pain, Right shoulder pain Patient Disposition: Admitted As Inpatient Discharge Instructions Interventions: ED Discharge Assessment Last Done: 05/07/19 14:51 The scribe's documentation has been prepared under my direction and personally reviewed by me in its entirety. I confirm that the note above accurately reflects all work, treatment, procedures, and medical decision making performed by me.
--- NOTE | 2019-05-07 16:56 | Cardiology Consultation ---
Date of Consultation May 07, 2019 Assessment & Plan (1) Chest pain: (2) CAD (coronary artery disease): (3) Pacemaker: (4) Palpitation: 73-year-old female admitted with right-sided chest discomfort and arm discomfort. Initial cardiac enzymes are negative. ECG demonstrates atrial pac ed rhythm without ischemic ST changes. Occasional palpitations reported, however, most recent pacemaker interrogation reveals no significant sustained dysrhythmias. Recommend cycling cardiac enzymes x3 sets. Continue telemetry monitoring. Limited resting 2D transthoracic echocardiogram will be performed for wall motion analysis. Consider Lexiscan nuclear stress testing in a.m. pending initial evaluation. Thank you for allowing to participate in the care of your patient. History of Present Illness Reason for Consultation: Chest pain CAD Requesting Physician: Dr. Reyes Attending Physician: Isaac Reyes DO History of Present Illness 73-year-old female presented to the emergency department with right-sided chest and arm discomfort. Patient noted discomfort beginning at approximately 8:30 AM. She describes a tightness that radiated to her back. Discomfort waxed and waned for approximately 2 hours. Pain would last 2 to 3 seconds and then resolved. She took 2 sublingual nitroglycerin at home which had no effect on the discomfort. Previous anginal equivalent is left-sided chest and arm discomfort. Due to recurrent discomfort she came to the emergency department for further evaluation and treatment. Patient admitted to the progressive care unit. Right-sided chest discomfort has resolved. Initial cardiac enzymes are negative. ECG demonstrates an atrial paced rhythm without ischemic ST-T wave changes. Denies any recent medication changes. Chronic dyspnea on exertion functional opacity unchanged. Patient notes occasional palpitations described as "heart racing". Most recent pacemaker interrogation performed in late March demonstrates atrial paced rhythm and sinus rhythm. One episode of paroxysmal supraventricular tachycardia recorded at a heart rate of 85 bpm. Patient denies syncope or near syncope. No signs/symptoms of GI/ blood loss. I last evaluated the patient in October 2018. I performed cardiac catheterization at that time demonstrating severe ostial RCA stenosis for which the patient underwent drug-eluting stent implantation. Complex cardiovascular history listed below. Cardiovascular problem list copied from the [facility] medical record: 1. Chronic ischemic heart disease 1. History of anterior wall IA at age 45, PTCA of the LAD at that time. 2. Abnormal stress testing in March 2004 with repeat catheterization on 04-09-04 demonstrating nonobstructive CAD with a total chronic occlusion of a 2nd diagonal branch and mild CAD elsewhere. 3. Cardiac catheterization in July 2016 demonstrating the chronic total occlusion of a diagonal branch with [id number] collaterals, 30% ostial RCA stenosis, and 30% mid RCA stenosis. LVEDP normal, 8 mmHg. 4. Presentation to [facility] May 2018 with unstable angina. Diagnostic cardiac catheterization with severe single-vessel coronary artery disease with an 80% mid RCA stenosis for which she underwent PCI, 3.0 x 18 mm drug-eluting stent implantation by Dr. Mclaughlin 5. Admission to [facility] in October 2018 with unstable angina, status post November 16, 2018 cardiac catheterization which demonstrated a severe, moderately calcified, 70% ostial right coronary artery stenosis with catheter dampening noted on engagement, status post successful PCI the ostial RCA with a single 3.0 x 12 Xience Eda drug-eluting stent. The previously placed mid RCA stent was noted to be patent. Chronic diagonal occlusion with collaterals. 2. Chronic intermittent tachypalpitations, without documented arrhythmia 3. Sick sinus syndrome status post November 03, 2017 dual-chamber pacemaker implantation 4. Hypertension 5. Hyperlipidemia Allergies Allergy/AdvReac Type Severity Reaction Status Date / Time escitalopram Allergy Unknown itching Verified 05/07/19 12:53 latex Allergy Unknown RASH Verified 05/07/19 12:53 epinephrine AdvReac Intermediate HEART RACES Verified 05/07/19 12:53 chlorhexidine AdvReac Mild rash, Verified 05/07/19 12:53 itching alprazolam AdvReac Unknown HEADACHE Verified 05/07/19 12:53 Home Medications Home Medications Medication Instructions Recorded Confirmed Type Cbd Oil 7.5 drp PO BID PRN 06/16/18 05/07/19 History Probiotic 3 mmu PO QAM 06/16/18 05/07/19 History Xiidra 1 drp OPHTHALMIC (EYE) BID 06/16/18 05/07/19 History acetaminophen [Tylenol Arthritis 650 mg PO DIRECTED PRN 06/16/18 05/07/19 History Pain] albuterol sulfate [Proventil HFA] 2 puff INHALATION Q4 PRN 06/16/18 05/07/19 History aspirin 81 mg PO HS 06/16/18 05/07/19 History buspirone 5 mg PO BID 06/16/18 05/07/19 History cholecalciferol (vitamin D3) 2,000 unit PO QAM 06/16/18 05/07/19 History [Vitamin D3] clotrimazole-betamethasone 1 applic TOPICAL BID 06/16/18 05/07/19 History [Lotrisone] desonide 1 applic TOPICAL BID 06/16/18 05/07/19 History dicyclomine 10 mg PO BID PRN 06/16/18 05/07/19 History estradiol 1 dose PO SUTUTHSA 06/16/18 05/07/19 History hydrochlorothiazide 12.5 mg PO QAM 06/16/18 05/07/19 History hydrocortisone 1 applic TOPICAL BID 06/16/18 05/07/19 History loperamide [Imodium A-D] 2 mg PO Q4H PRN 06/16/18 05/07/19 History lorazepam 0.5 mg PO TID PRN 06/16/18 05/07/19 History metronidazole [MetroCream] 1 applic TOPICAL QAM 06/16/18 05/07/19 History nitroglycerin [Nitrostat] 0.4 mg SUBLINGUAL DIRECTED PRN 06/16/18 05/07/19 History potassium 99 mg PO QAM 06/16/18 05/07/19 History simvastatin 40 mg PO HS 06/16/18 05/07/19 History sucralfate [Carafate] 1 g PO QID PRN 06/16/18 05/07/19 History triamcinolone acetonide 1 applic TOPICAL BID 06/16/18 05/07/19 History clopidogrel 75 mg PO QAM 11/16/18 05/07/19 History isosorbide mononitrate 60 mg PO QAM 11/16/18 05/07/19 History atenolol 37.5 mg PO BID #45 tab 11/17/18 05/07/19 Rx pantoprazole [Protonix] 40 mg PO QAM 05/07/19 05/07/19 History polymyxin B sulf-trimethoprim 1 drp OPHTHALMIC (EYE) Q4H 05/07/19 05/07/19 History rifaximin [Xifaxan] 550 mg PO TID 05/07/19 05/07/19 History Patient History Medical History Anxiety (Chronic) Asthma (Chronic) CAD (coronary artery disease) (Chronic) per outpatient cardio note: History of anterior wall IA at age 45, PTCA of the LAD at that time. Abnormal stress testing in March 2004 with repeat catheterization on 04-09-04 demonstrating nonobstructive CAD with a total chronic occlusion of a 2nd diagonal branch and mild CAD elsewhere. Cardiac catheterization in July 2016 demonstrating the chronic total occlusion of a diagonal branch with [id number] collaterals, 30% ostial RCA stenosis, and 30% mid RCA stenosis. LVEDP normal, 8 mmHg. Presentation to [facility] May 2018 with unstable angina. Diagnostic cardiac catheterization with severe single-vessel coronary artery disease with an 80% mid RCA stenosis for which she underwent PCI, 3.0 x 18 mm drug-eluting stent implantation by Dr. Mclaughlin Admission to [facility] in October 2018 with unstable angina, status post November 16, 2018 cardiac catheterization which demonstrated a severe, moderately calcified, 70% ostial right coronary artery stenosis with catheter dampening noted on engagement, status post successful PCI the ostial RCA with a single 3.0 x 12 Xience Eda drug-eluting stent. The previously placed mid RCA stent was noted to be patent. Chronic diagonal occlusion with collaterals. Diverticulosis of colon (Chronic) GERD (gastroesophageal reflux disease) (Chronic) History of myocardial infarction (Resolved 03/01/11) "anterior wall IA" HTN (hypertension) (Chronic) IBS (irritable bowel syndrome) (Chronic) Pacemaker (Chronic) SSS (sick sinus syndrome) (Chronic) Surgical History H/O exploratory laparotomy (Resolved) "02/05/15 Dr. Marques Rodriguez" History of cataract extraction (Chronic) History of hysterectomy (Resolved) History of Faisal fundoplication (Resolved) "02/05/[address] Marques Rodriguez" History of PTCA (Chronic) History of tonsillectomy and adenoidectomy (Resolved) S/P repair of paraesophageal hernia (Resolved) "02/04/15 complicated by esophageal perforation" Family History Father Lung cancer Mother Hypertension Social History Preferred Language: [place] Communication Ability: Effective Inside Steward/Stewardess Required: No Beliefs That Will Affect Care: None Current Living Situation: Spouse Current Living Situation Comment: Independent appt in care home current occupation: retired Other Information That Helps Us Care for You: No Feels Safe at Home: Yes Safety Concerns: Feels Safe At This Time Smoking Status: Former smoker Second Hand Exposure: No ; Hx Alcohol Use: Yes Alcohol type: wine Hx Substance Use: No Review of Systems Review of Systems: All systems reviewed & are unremarkable except as noted in HPI & below Physical Exam Constitutional: well developed and well nourished Respiratory: normal respiratory effort, lungs clear to auscultation Cardiovascular: Rate/Rhythm: regular rate and regular rhythm Heart Sounds: normal S1 and normal S2; no gallop, no murmur and no cardiac rub Vessels: no JVD and no carotid bruit Extremities: no edema Gastrointestinal (Abdomen): Inspection/Auscultation: abdomen normal to inspection and normal bowel sounds; abdomen not distended Percussion/Palpation: abdomen soft; abdomen nontender, no guarding and abdomen not rigid Musculoskeletal: no cyanosis or clubbing, extremities motor strength 5/5 Skin: no rashes, warm and dry Neurologic: moves all extremities; no focal motor deficits Psychiatric: A+Ox3, euthymic affect Insight: good insight Judgement: good judgement Results & Data ([facility]) Vital Signs (Past 12 Hours) Vital Signs Temp Pulse Pulse Resp BP BP Pulse Ox 05/07/19 15:24 70 05/07/19 15:07 36.5 C 62 18 119/77 98 05/07/19 14:00 67 16 124/65 98 05/07/19 12:26 63 16 120/64 98 05/07/19 12:01 97 05/07/19 11:47 64 16 150/78 H 98 05/07/19 11:27 36.7 C 71 18 154/101 H 97 (1) CAD (coronary artery disease) Associated angina: with unspecified angina Coronary Disease-Associated Artery/Lesion type: [place] artery [place] vs. transplanted heart: [place] heart Qualified Code(s): I25.119 - Atherosclerotic heart disease of [place] coronary artery with unspecified angina pectoris (2) Chest pain Chest pain type: other chest pain Qualified Code(s): R07.89 - Other chest pain
[2019-05-07] MEDS: ENOXAPARIN INJ 40 MG/0.4 ML SYR SQ SCH (19:41)
[2019-05-07] MEDS: CLOPIDOGREL BISULFATE 75 MG TAB PO SCH (19:43)
[2019-05-07] MEDS: SIMVASTATIN 40 MG TAB PO SCH (19:44)
[2019-05-07] MEDS: ATENOLOL 25 MG TABLET PO SCH (19:44)
[2019-05-07] MEDS: RIFAXIMIN 550 MG TABLET PO SCH ×2 (19:46→21:10)
[2019-05-07] MEDS: LORazepam 0.5 MG TAB PO PRN (21:10)
[2019-05-08 06:53] LABS: Hematocrit (blood only) 39.9 % (37-47); Hemoglobin 13.2 g/dL (12.0-16.0); Mean Corpuscular Hemoglobin 29.7 pg (25-34); Mean Corpuscular Hgb Conc 33.1 g/dL (32-36); Mean Corpuscular Volume 89.9 fL (80-100); Mean Platelet Volume 10.1 fL (7.4-10.4); Platelet Count 205 K/uL (130-400); RDW Coefficient of Variation 13.6 % (11.5-14.5); RDW Standard Deviation 44.6 fL (36.4-46.3); Red Blood Count 4.44 M/uL (4.2-5.4); White Blood Count 4.11 K/uL (4.8-10.8)
[2019-05-08 07:28] LABS: BUN Creatinine Ratio 11.4 (10-20); Calcium 9.1 mg/dl (8.5-10.1); Creatinine Clr Calc Pharmacy 62.6 ml/min; Est GFR (African American) 97.3; Est GFR (Non-African American) 83.9; Potassium 4.1 mmol/L (3.5-5.1)
[2019-05-08] MEDS ORDERED: CLOPIDOGREL BISULFATE 75 MG TAB PO SCH (09:00)
[2019-05-08] MEDS: PANTOprazole 40 MG TAB PO SCH (09:16)
[2019-05-08] MEDS: ATENOLOL 25 MG TABLET PO SCH ×2 (09:16→20:22)
[2019-05-08] MEDS: ASPIRIN 81 MG ECTAB PO SCH ×3 (09:17→20:22)
[2019-05-08] MEDS: ISOSORBIDE MONO EXTENDED REL 60 MG TABCR PO SCH (09:17)
[2019-05-08] MEDS: hydroCHLOROthiazide 25 MG TAB PO SCH ×2 (09:18→09:58)
[2019-05-08] MEDS: CHOLECALCIFEROL 1,000 UNITS 25 MCG TAB PO SCH (09:18)
[2019-05-08] MEDS: RIFAXIMIN 550 MG TABLET PO SCH ×4 (09:20→20:30)
[2019-05-08] MEDS ORDERED: REGADENOSON 0.4 MG/5 ML SYR IV ONE (10:49)
[2019-05-08] MEDS: ACETAMINOPHEN 325 MG TAB PO PRN (14:08)
--- NOTE | 2019-05-08 14:58 | Myocardial Perfusion Study ---
Date of Service May 08, 2019 Myocardial Perfusion Study [facility] Myocardial Perfusion Study Report Indication: Chest pain, coronary artery disease status post ostial right coronary artery stent implantation 11/2018, chronic occlusion of diagonal branch vessel. Procedural summary: The patient performed a stress test according to Lexiscan protocol for 3 minutes and 38 seconds. She achieved a work level of 1.0 METS. The resting heart rate of 61 bpm ana luisa to a maximum heart rate of 71 bpm. This value represents 48% of the maximal, age-predicted heart rate. The rest blood pressure of 121/70 ana luisa to a maximum blood pressure of 139/62. The stress test was stopped due to end of protocol. Normal heart rate and blood pressure response to Lexiscan infusion. Symptoms: Chest discomfort, dizziness, shortness of breath. Resting ECG: Atrial paced rhythm, occasional PVCs, nonspecific T wave abnormality. Stress ECG: No ischemia. Myocardial perfusion scan technique: For the stress portion of the study, 31.74 mCi of technetium 99m Cardiolite IV was injected at 12:40 PM on 05/08/2019. 30 minutes following the injection, imaging of the heart was performed in multiple projections. For the rest portion of the study, 10.8 mCi of technetium 99m Cardiolite was injected IV at 10:45 AM. 1 hour following the injection, imaging of the heart was performed in the same projections. Raw data: No extraneous uptake of isotopic tracer on rotating raw data images. There is more prominent hepatic uptake noted on stress raw images. Right ventricle: Not well visualized. Resting perfusion: Normal. Stress perfusion: There is a moderate size defect of moderate intensity involving the mid and apical anterior wall and apical anterior lateral wall. There is a second moderate size defect of mild intensity involving the base, mid, and apical posterior lateral wall. The remaining left ventricular myocardial wall segments demonstrate normal perfusion. The perfusion defects are not present on resting images suggesting ischemia. Gated SPECT imaging: Normal wall motion and myocardial thickening. Calculated action fraction 74% Conclusion: Abnormal Lexiscan nuclear stress testing suggesting anterior lateral and posterior lateral ischemia. Normal gated SPECT imaging with normal LV systolic function. Calculated ejection fraction 74%.
--- NOTE | 2019-05-08 15:28 | Cardiology Progress Note ---
Date of Service May 08, 2019 Assessment & Plan (1) Abnormal nuclear stress test: (2) Chest pain: (3) CAD (coronary artery disease): (4) Pacemaker: (5) Palpitation: Results of Lexiscan nuclear stress test discussed with patient and her at length. Anterior lateral ischemia possibly secondary to known diagonal occlusion. I am concerned regarding evidence of posterior lateral ischemia which may reflect circumflex and/or right coronary artery stenosis. Invasive versus noninvasive management discussed with patient at length. Due to size of perfusion defect and ongoing symptoms, patient agreeable to repeat left heart catheterization with coronary angiography. Procedure scheduled for 8 AM 05/09/2019. Subjective Patient seen and examined at the bedside. Reports 2 episodes of recurrent chest discomfort overnight. Lexiscan nuclear stress test performed demonstrating ischemia of the anterior lateral, and posterior lateral corley. Patient currently pain-free. Requesting diet. present at bedside. Offers no additional concerns/complaints at this time. Review of Systems Review of Systems: All systems reviewed & are unremarkable except as noted in HPI & below Physical Exam Constitutional: well developed and well nourished Respiratory: normal respiratory effort, lungs clear to auscultation Cardiovascular: Rate/Rhythm: regular rate and regular rhythm Heart Sounds: normal S1 and normal S2; no gallop, no murmur and no cardiac rub Vessels: no JVD and no carotid bruit Extremities: no edema Gastrointestinal (Abdomen): Inspection/Auscultation: abdomen normal to inspection and normal bowel sounds; abdomen not distended Percussion/Palpation: abdomen soft; abdomen nontender, no guarding and abdomen not rigid Musculoskeletal: no cyanosis or clubbing, extremities motor strength 5/5 Skin: no rashes, warm and dry Neurologic: moves all extremities; no focal motor deficits Psychiatric: A+Ox3, euthymic affect Insight: good insight Judgement: good judgement Results & Data Vital Signs (Past 12 Hours) Vital Signs Temp Pulse Pulse Resp BP Pulse Ox 05/08/19 13:44 36.5 C 65 19 149/89 H 97 05/08/19 08:18 36.7 C 60 19 133/83 97 05/08/19 08:00 63 05/08/19 03:31 36.4 C L 61 18 97/59 L 96 (1) CAD (coronary artery disease) Associated angina: with unspecified angina Coronary Disease-Associated Artery/Lesion type: [place] artery [place] vs. transplanted heart: [place] heart Qualified Code(s): I25.119 - Atherosclerotic heart disease of [place] coronary artery with unspecified angina pectoris (2) Chest pain Chest pain type: other chest pain Qualified Code(s): R07.89 - Other chest pain
--- NOTE | 2019-05-08 16:19 | Hospitalist Progress Note ---
Date of Service May 08, 2019 Assessment & Plan (1) Chest pain: (2) CAD (coronary artery disease): -patient presenting from home with reports of midsternal chest tightness with radiation under the right arm -took 2 SL nitro at home without relief if symptoms; currently chest pain free -hx of CAD, most recent stenting 10/2018 (KIERSTEN to ostial RCA) -initial trop negative, EKG shows atrial paced rhythm, no acute ST changes -continue to cycle cardiac enzymes, limited echo to evaluate for wall motion abnormalities -PRN nitro and EKG with further episodes of chest pain -continue ASA, plavix, statin, beta chio, nitrate -cardiology consulted - recommended nucl. stress test which pt underwent today (05/08) - lexiscan demonstrating ischemia of the anterior lateral, and posterior lateral corley - given the results of lexiscan above, plan for cardiac cath tomorrow AM (05/09) (3) SSS (sick sinus syndrome): (4) Pacemaker: -no acute issues (5) Anxiety: -continue Buspar and PRN lorazepam (6) IBS (irritable bowel syndrome): -managed with Xifaxin (7) DVT prophylaxis: -SQ Lovenox Admission and Anticipated Discharge Date Admission Date: May 07, 2019 Subjective Pt is sitting up in bed in NAD, states that she is nervous about the results of lexiscan. Pt otherwise denies any chest pain, shortness of breath, abd. pain, nausea or vomiting.Says she has KING. Update: Lexiscan nuclear stress test performed demonstrating ischemia of the anterior lateral, and posterior lateral corley. Review of Systems Review of Systems: All systems reviewed & are unremarkable except as noted in HPI & below ROS per HPI, all other systems reviewed and negative Constitutional: no fever and no chills Respiratory: no cough and no dyspnea Cardiovascular: no chest pain Physical Exam Physical Exam: Constitutional: elderly female, WD/WN, sitting up in bed in NAD Respiratory: normal respiratory effort, lungs clear to auscultation b/l, no rhonchi, crackles, wheezes Cardiovascular: Rate/Rhythm: regular rate and regular rhythm Heart Sounds: normal S1 and normal S2; no gallop, no murmur and no cardiac rub Vessels: no JVD and no carotid bruit Extremities: no edema Gastrointestinal (Abdomen): Inspection/Auscultation: abdomen normal to inspection, normal bowel sounds;not distended Percussion/Palpation: abdomen soft; abdomen nontender, no guarding Musculoskeletal: no cyanosis or clubbing, extremities motor strength 5/5, moves extremities spont. Skin: no rashes, warm and dry Neurologic: alert and oriented, speech fluent, no facial asymmetry, moves all extremities Psychiatric: A+Ox3, euthymic affect Insight: good insight Judgement: good judgement Results & Data ([facility]) Vital Signs (Past 12 Hours) Vital Signs Temp Pulse Pulse Resp BP Pulse Ox 05/08/19 15:57 36.5 C 62 20 127/76 96 05/08/19 13:44 36.5 C 65 19 149/89 H 97 05/08/19 08:18 36.7 C 60 19 133/83 97 05/08/19 08:00 63 Laboratory Results 05/08/19 05/08/19 05/08/19 Range/Units 06:26 06:26 00:03 WBC 4.11 L (4.8-10.8) K/uL RBC 4.44 (4.2-5.4) M/uL Hgb 13.2 (12.0-16.0) g/dL Hct 39.9 (37-47) % MCV 89.9 (80-100) fL MCH 29.7 (25-34) pg MCHC 33.1 (32-36) g/dL RDW Std Deviation 44.6 (36.4-46.3) fL RDW Coeff of Nanette 13.6 (11.5-14.5) % Plt Count 205 (130-400) K/uL MPV 10.1 (7.4-10.4) fL Sodium 139 (136-145) mmol/L Potassium 4.1 (3.5-5.1) mmol/L Chloride 108 H (98-107) mmol/L Carbon Dioxide 25 (21-32) mmol/L Anion Gap 6.0 (3-11) BUN 8 (7-18) mg/dl Creatinine 0.71 (0.6-1.2) mg/dl Est Cr Clr Drug Dosing 62.6 ml/min Est GFR ( Amer) 97.3 Est GFR (Non-Af Amer) 83.9 BUN/Creatinine Ratio 11.4 (10-20) Glucose 95 (70-99) mg/dl Calcium 9.1 (8.5-10.1) mg/dl Troponin I < 0.015 (0-0.045) ng/ml 05/07/19 Range/Units 17:55 WBC (4.8-10.8) K/uL RBC (4.2-5.4) M/uL Hgb (12.0-16.0) g/dL Hct (37-47) % MCV (80-100) fL MCH (25-34) pg MCHC (32-36) g/dL RDW Std Deviation (36.4-46.3) fL RDW Coeff of Nanette (11.5-14.5) % Plt Count (130-400) K/uL MPV (7.4-10.4) fL Sodium (136-145) mmol/L Potassium (3.5-5.1) mmol/L Chloride (98-107) mmol/L Carbon Dioxide (21-32) mmol/L Anion Gap (3-11) BUN (7-18) mg/dl Creatinine (0.6-1.2) mg/dl Est Cr Clr Drug Dosing ml/min Est GFR ( Amer) Est GFR (Non-Af Amer) BUN/Creatinine Ratio (10-20) Glucose (70-99) mg/dl Calcium (8.5-10.1) mg/dl Troponin I < 0.015 (0-0.045) ng/ml Medications Administered Current Inpatient Medications Acetaminophen (Tylenol) 650 mg PO Q4H PRN PRN Reason: Pain or Fever Stop: 06/06/19 15:46 Last Admin: 05/08/19 14:08 Dose: 650 mg Documented by: Aspirin (Ecotrin Ectab) 81 mg PO DAILY COUNT INCLUDES THE [facility] Stop: 06/07/19 08:59 Last Admin: 05/08/19 09:58 Dose: Not Given Documented by: Atenolol (Tenormin) 37.5 mg PO BID COUNT INCLUDES THE [facility] Stop: 06/06/19 20:59 Last Admin: 05/08/19 09:16 Dose: 37.5 mg Documented by: Buspirone HCl (Buspar) 5 mg PO BID COUNT INCLUDES THE [facility] Stop: 06/06/19 20:59 Last Admin: 05/08/19 09:17 Dose: 5 mg Documented by: Clopidogrel Bisulfate (Plavix) 75 mg PO HS COUNT INCLUDES THE [facility] Stop: 06/06/19 19:44 Last Admin: 05/07/19 19:43 Dose: 75 mg Documented by: Enoxaparin Sodium (Lovenox) 40 mg SQ Q24H COUNT INCLUDES THE [facility] Stop: 06/06/19 19:59 Last Admin: 05/07/19 19:41 Dose: 40 mg Documented by: [facility] ([facility]) [facility] Stop: 06/07/19 08:59 Last Admin: 05/08/19 09:58 Dose: Not Given Documented by: Isosorbide Mononitrate (Imdur Extended Rel) [facility] Stop: 06/07/19 08:59 Last Admin: 05/08/19 09:17 Dose: 60 mg Documented by: Lorazepam (Ativan) 0.5 mg PO TID PRN PRN Reason: Anxiety Stop: 06/06/19 15:46 Last Admin: 05/07/19 21:10 Dose: 0.5 mg Documented by: Nitroglycerin (Nitrostat) 0.4 mg SL UD PRN PRN Reason: Chest Pain Stop: 06/06/19 15:46 Pantoprazole Sodium (Protonix) 40 mg PO [facility] Stop: 06/07/19 08:59 Last Admin: 05/08/19 09:16 Dose: 40 mg Documented by: Rifaximin (Xifaxan) 550 mg PO TID COUNT INCLUDES THE [facility] Stop: 06/06/19 20:59 Last Admin: 05/08/19 14:09 Dose: Not Given Documented by: Simvastatin (Zocor) 40 mg PO [facility] Stop: 06/06/19 20:59 Last Admin: 05/07/19 19:44 Dose: 40 mg Documented by: Vitamin D (Vitamin D3) 2,[facility] Stop: 06/07/19 08:59 Last Admin: 05/08/19 09:18 Dose: 2,000 units Documented by: (1) CAD (coronary artery disease) Associated angina: with unspecified angina Coronary Disease-Associated Artery/Lesion type: [place] artery [place] vs. transplanted heart: [place] heart Qualified Code(s): I25.119 - Atherosclerotic heart disease of [place] coronary artery with unspecified angina pectoris (2) Chest pain Chest pain type: other chest pain Qualified Code(s): R07.89 - Other chest pain (3) IBS (irritable bowel syndrome) Irritable bowel syndrome type: with diarrhea Qualified Code(s): K58.0 - Irritable bowel syndrome with diarrhea
[2019-05-08] MEDS ORDERED: Nursing to Pharmacy Communication ONE (17:05)
[2019-05-08] MEDS ORDERED: BACITRACIN OINT 15 GM TUBE EXT ONE (18:07)
[2019-05-08] MEDS: ENOXAPARIN INJ 40 MG/0.4 ML SYR SQ SCH (20:20)
[2019-05-08] MEDS: CLOPIDOGREL BISULFATE 75 MG TAB PO SCH (20:21)
[2019-05-08] MEDS: SIMVASTATIN 40 MG TAB PO SCH (20:23)
[2019-05-08] MEDS: LORazepam 0.5 MG TAB PO PRN (21:10)
--- NOTE | 2019-05-08 22:39 | Electrocardiogram Report ---
Test Reason : Blood Pressure : / mmHG Vent. Rate : 062 BPM Atrial Rate : 062 BPM P-R Int : 214 ms QRS Dur : 086 ms QT Int : 410 ms P-R-T Axes : 011 025 033 degrees QTc Int : 416 ms Atrial-paced rhythm with prolonged AV conduction Abnormal ECG When compared with ECG of 17-NOV-2018 06:28, No significant change was found Confirmed by Tj Hay ([id number]) on 05/08/2019 10:39:27 PM Referred By: NO PCP Confirmed By:Tj Hay
--- NOTE | 2019-05-09 05:56 | Electrocardiogram Report ---
Test Reason : Blood Pressure : / mmHG Vent. Rate : 061 BPM Atrial Rate : 061 BPM P-R Int : 218 ms QRS Dur : 086 ms QT Int : 418 ms P-R-T Axes : 023 037 016 degrees QTc Int : 420 ms Atrial-paced rhythm with prolonged AV conduction Abnormal ECG When compared with ECG of 07-MAY-2019 11:43, No significant change was found Confirmed by Tj Hay ([id number]) on 05/09/2019 5:55:43 AM Referred By: NO PCP Confirmed By:Tj Hay
[2019-05-09 07:18] LABS: BUN Creatinine Ratio 10.9 (10-20); Creatinine Clr Calc Pharmacy 63.4 ml/min; Est GFR (African American) 98.9; Est GFR (Non-African American) 85.4; Potassium 3.9 mmol/L (3.5-5.1)
[2019-05-09] MEDS: hydroCHLOROthiazide 25 MG TAB PO SCH (08:33)
[2019-05-09] MEDS: ISOSORBIDE MONO EXTENDED REL 60 MG TABCR PO SCH (08:33)
[2019-05-09] MEDS: RIFAXIMIN 550 MG TABLET PO SCH ×3 (08:33→20:45)
[2019-05-09] MEDS: PANTOprazole 40 MG TAB PO SCH (08:33)
[2019-05-09] MEDS: CHOLECALCIFEROL 1,000 UNITS 25 MCG TAB PO SCH (08:34)
[2019-05-09] MEDS: ATENOLOL 25 MG TABLET PO SCH ×2 (08:34→20:49)
[2019-05-09] MEDS: ACETAMINOPHEN 325 MG TAB PO PRN ×2 (08:42→20:55)
[2019-05-09] MEDS ORDERED: fentaNYL citrate 100 MCG/2 ML VIAL ONE (10:03)
[2019-05-09] MEDS ORDERED: HEPARIN (PORCINE) 1000 UNIT/ML 10 ML (CATH LAB USE ONLY) ONE (10:03)
[2019-05-09] MEDS ORDERED: MIDAZOLAM HCL 1 MG/ML 2ML VIAL ONE (10:03)
[2019-05-09] MEDS ORDERED: NiCARDipine HCL INJ 2.5 MG/ML 10 ML AMP ONE (10:03)
[2019-05-09] MEDS ORDERED: NITROGLYCERIN/D5W 100MCG/ML 20ML SYR ONE (10:04)
--- NOTE | 2019-05-09 10:04 | Pre Anesthesia Assessment ---
Date of Service May 09, 2019 Pre Sedation Assessment Vital Signs Temp Pulse Resp BP BP Pulse Ox 05/09/19 07:19 36.5 C 63 16 148/86 H 98 05/09/19 03:40 36.4 C L 60 18 110/73 97 05/09/19 00:10 36.4 C L 58 L 17 123/72 97 05/08/19 19:06 36.6 C 60 18 135/84 98 05/08/19 15:57 36.5 C 62 20 127/76 96 05/08/19 13:44 36.5 C 65 19 149/89 H 97 Cardiovascular + regular rate and + regular rhythm no gallop no JVD Respiratory normal respiratory effort, lungs clear to auscultation Pre-Sedation Airway Assessment Smoking Status: Former smoker Hx Sleep Apnea: No Mallampati Class: III ASA: ASA3 NPO Status Date of Last Intake of Fluids: 05/08/19 Date of Last Intake of Solid Food: 05/08/19 Procedure Planning Contraindications for Sedation: none Current Medications Reviewed: No Notes The planned sedation has been discussed with the patient. Informed Consent was obtained. I have identified the patient, determined the appropriateness of sedation and have assessed the patient immediately prior to the procedure. All medicine(s) and interventions are by my order.
[2019-05-09] MEDS ORDERED: SODIUM CHLORIDE 0.9% 500 ML IV PRN (11:29)
[2019-05-09] MEDS ORDERED: SODIUM CHLORIDE 0.9% 1000ML 1,000 ML IV SCH (11:30)
--- NOTE | 2019-05-09 11:35 | Cardiac Catheterization ---
Cardiac Cath Procedure Brief Procedure Date May 09, 2019 Pre-Procedure Diagnosis Pre-Procedure Diagnosis: Angina and Positive Stress Test AUC Score AUC Score: 7 Post-Procedure Diagnosis Post-Procedure Diagnosis: Moderate CAD Procedure(s) Performed Procedure(s) Performed: Coronary Angiography Electrical Tests Supervisor Harsh Waller MD Records Management Specialist(s) Austin Rodriguez Estimated Blood Loss Estimated Blood Loss: <15cc Medication(s) Medication(s): Fentanyl (12.5 mcg IV x 2), Heparin (5000 units IV), Lidocaine 1% (Local infiltration access site), Nicardipine (250 mcg intra-arterial after arterial sheath insertion and prior to sheath removal) and Versed (1 mg IV x 2) Preliminary Findings Right dominant coronary anatomy Patent coronary stents ostial right coronary artery and mid right coronary artery Left main: Short and a modest caliber but no obstruction, mild calcification Left anterior descending: Type III in distribution but moderate in caliber diffusely. It gives rise to a moderate caliber long first diagonal branch, a small and diffusely diseased/100% occluded second diagonal and a tiny third diagonal before coursing to the apex. Within the left anterior descending or moderate luminal irregularities throughout of 20 to 30%. There is moderate calcification of its proximal third Left circumflex: Modest in caliber consisting of a single high marginal branch and small atrial branch. There is no disease in the circumflex Right coronary artery: Dominant distribution modest in caliber. Gives rise to a sinoatrial branch at its origin to small right ventricular branches in its midportion at the AV groove along thin posterior descending artery and a long bifurcating posterior ventricular branch along the AV groove. Prior ostial stent and mid right coronary stents are patent. Ostial stent has in-stent narrowing of 20% but no obstruction. There is no damping on engagement LV angiography not performed, aortic valve not crossed Aortic root pressure 131/66/86 Final impressions: No progression in coronary disease with patent stent stents ostial and mid right coronary artery Recommendations Recommendations: Medical Therapy and/or Counseling Specimens Specimens: None Fluids (cc crystalloids) Fluids (cc crystalloids): 68 Anesthesia Start time: 1052, stop time: 1120 Procedural Complication(s) None Disposition Recovery Room\PACU
--- NOTE | 2019-05-09 11:49 | Cardiac Catheterization ---
Cardiac Cath Procedure Full Procedure Date May 09, 2019 Pre-Procedure Diagnosis Pre-Procedure Diagnosis: Angina and Positive Stress Test AUC Score AUC Score: 7 Post-Procedure Diagnosis Post-Procedure Diagnosis: Moderate CAD Procedure(s) Performed Procedure(s) Performed: Coronary Angiography Biochemistry Specialist Harsh Waller MD Production Hardener(s) Austin Rodriguez Estimated Blood Loss Estimated Blood Loss: <15cc Medication(s) Medication(s): Fentanyl (12.5 mcg IV x 2), Heparin (4000 units IV), Lidocaine 1% (Local infiltration access site), Nicardipine (250 mcg intra-arterial after arterial sheath insertion and prior to sheath removal) and Versed (1 mg IV x 2) Summary of Findings Right dominant coronary anatomy Patent coronary stents ostial right coronary artery and mid right coronary artery Left main: Short and a modest caliber but no obstruction, mild calcification Left anterior descending: Type III in distribution but moderate in caliber diffusely. It gives rise to a moderate caliber long first diagonal branch, a small and diffusely diseased/100% occluded second diagonal and a tiny third diagonal before coursing to the apex. Within the left anterior descending or moderate luminal irregularities throughout of 20 to 30%. There is moderate calcification of its proximal third Left circumflex: Modest in caliber consisting of a single high marginal branch and small atrial branch. There is no disease in the circumflex Right coronary artery: Dominant distribution modest in caliber. Gives rise to a sinoatrial branch at its origin to small right ventricular branches in its midportion at the AV groove along thin posterior descending artery and a long bifurcating posterior ventricular branch along the AV groove. Prior ostial stent and mid right coronary stents are patent. Ostial stent has in-stent narrowing of 20% but no obstruction. There is no damping on engagement LV angiography not performed, aortic valve not crossed Aortic root pressure 131/66/86 Final impressions: No progression in coronary disease with patent stent stents ostial and mid right coronary artery Hemodynamics Rest Ao:: 135/64/121 Final Ao: 131/66/86 LV: N/A Recommendations Recommendations: Medical Therapy and/or Counseling Specimens Specimens: None Radiation Exposure (mGy) 572 Contrast (mls) 58 Fluids (cc crystalloids) Fluids (cc crystalloids): 68 Anesthesia Start time: 1052, stop time: 1120 Procedural Complication(s) None Procedure note. Access via right radial artery with use of long Glidewire to transverse upper arm. Patient tolerated well though there was limited torque ability of catheters in aortic root Disposition Recovery Room\PACU I attest to the content of the Intraoperative Record and any orders documented therein. Any exceptions are noted below. ACC Data: Planning Official Cardiac Status Clinical evaluation leading to the procedure Patient is a 73-year-old female with prior history of coronary inventions to the right coronary artery in May 2018 mid vessel and ostium right coronary artery October 2018 who presented with chest pains concerning for angina. Stress nuclear was performed reflecting stress-induced ischemia with moderate size defect of moderate intensity involving the mid and apical anterior wall and apical anterior lateral wall. There is a second moderate size defect of mild intensity involving the base, mid, and apical posterior lateral wal CAD Presenation: Positive Stress Test and Stable angina Anginal Classification: CCS III Heart Failure: No Cardiogenic Shock within 24 Hours: No Cardiac Arrest within 24 Hours: No Imaging Studies Past 6 Months: Yes Stress Studies Past 6 Months: Yes Standard Exercise Test: No Stress Echocardiogram: No Stress Testing w/SPECT MPI: Yes - Positive Cardiac CTA: No Coronary Anatomy Dominant: Right Left Main (% Stenosis): Normal LAD (% Stenosis): Proximal (2030 with moderate calcific), Mid (20) and Distal (20) D1 (% Stenosis): Normal D2 (% Stenosis): Proximal (100%) D3 (% Stenosis): Normal OM1 (% Stenosis): Normal RCA (% Stenosis): Ostial (20% with patent stent) and Mid (20-30 with patent stent) R PDA (% Stenosis): Normal (Thin caliber) R PL1 (% Stenosis): Normal Left Ventricular Angiography EF (%): N/A Diagnostic Physicians Name: Harsh Waller MD Status: Urgent Closure Device Percutaneous Entry Location: Radial Closure Device: Radial Band Recommendations: Medical Therapy and/or Counseling
[2019-05-09] MEDS: SIMVASTATIN 40 MG TAB PO SCH (20:44)
[2019-05-09] MEDS: CLOPIDOGREL BISULFATE 75 MG TAB PO SCH (20:44)
[2019-05-09] MEDS: ENOXAPARIN INJ 40 MG/0.4 ML SYR SQ SCH (20:45)
[2019-05-09] MEDS: ASPIRIN 81 MG ECTAB PO SCH (20:45)
[2019-05-09] MEDS: LORazepam 0.5 MG TAB PO PRN (20:55)
--- NOTE | 2019-05-09 21:35 | Electrocardiogram Report ---
Test Reason : Blood Pressure : / mmHG Vent. Rate : 063 BPM Atrial Rate : 063 BPM P-R Int : 216 ms QRS Dur : 084 ms QT Int : 412 ms P-R-T Axes : 018 034 022 degrees QTc Int : 421 ms Atrial-paced rhythm with prolonged AV conduction Abnormal ECG When compared with ECG of 08-MAY-2019 06:21, No significant change was found Confirmed by Tj Hay ([id number]) on 05/09/2019 9:35:17 PM Referred By: NO PCP Confirmed By:Tj Hay
[2019-05-10 07:34] LABS: BUN Creatinine Ratio 12.6 (10-20); Calcium 8.5 mg/dl (8.5-10.1); Creatinine Clr Calc Pharmacy 75.9 ml/min; Est GFR (African American) 104.6; Est GFR (Non-African American) 90.3; Potassium 3.6 mmol/L (3.5-5.1)
[2019-05-10] MEDS: CHOLECALCIFEROL 1,000 UNITS 25 MCG TAB PO SCH (07:57)
[2019-05-10] MEDS: hydroCHLOROthiazide 25 MG TAB PO SCH (07:57)
[2019-05-10] MEDS: ATENOLOL 25 MG TABLET PO SCH (07:57)
[2019-05-10] MEDS: RIFAXIMIN 550 MG TABLET PO SCH (07:58)
[2019-05-10] MEDS: PANTOprazole 40 MG TAB PO SCH (07:58)
[2019-05-10] MEDS: ACETAMINOPHEN 325 MG TAB PO PRN (08:05)
[2019-05-10] MEDS ORDERED: ISOSORBIDE MONO EXTENDED REL 30 MG TABCR PO SCH (09:00)
--- NOTE | 2019-05-10 10:12 | Hospitalist Progress Note ---
Date of Service May 09, 2019 Assessment & Plan (1) Chest pain: (2) CAD (coronary artery disease): -patient presenting from home with reports of midsternal chest tightness with radiation under the right arm -took 2 SL nitro at home without relief if symptoms; currently chest pain free -hx of CAD, most recent stenting 10/2018 (KIERSTEN to ostial RCA) -initial trop negative, EKG shows atrial paced rhythm, no acute ST changes -continue to cycle cardiac enzymes, limited echo to evaluate for wall motion abnormalities -PRN nitro and EKG with further episodes of chest pain -continue ASA, plavix, statin, beta chio, nitrate -cardiology consulted - recommended nucl. stress test which pt underwent today (05/08) - lexiscan demonstrating ischemia of the anterior lateral, and posterior lateral corley - given the results of lexiscan above, plan for cardiac cath today(05/09) - cardiac cath showed moderate CAD and recommended for medical management Cardiac catheter showed patent RCA stents, chronic diagonal branch vessel occlusion without any significant obstruction of the coronary arteries. (3) SSS (sick sinus syndrome): (4) Pacemaker: -no acute issues (5) Anxiety: -continue Buspar and PRN lorazepam (6) IBS (irritable bowel syndrome): -managed with Xifaxin (7) DVT prophylaxis: -SQ Lovenox Admission and Anticipated Discharge Date Admission Date: May 09, 2019 Subjective Pt is sitting up in bed, in NAD. S/p cardiac cath. Denies any pain. Wants to talk to Dr. Mccabe in the morning. Review of Systems Review of Systems: All systems reviewed & are unremarkable except as noted in HPI & below Constitutional: no fever and no chills Respiratory: no cough and no dyspnea Cardiovascular: no chest pain and no palpitations Gastrointestinal: no abdominal pain, no nausea and no vomiting Physical Exam Physical Exam: Constitutional: elderly female, WD/WN, sitting up in bed in NAD Respiratory: normal respiratory effort, lungs clear to auscultation b/l, no rhonchi, crackles, wheezes Cardiovascular: Rate/Rhythm: regular rate and regular rhythm Heart Sounds: normal S1 and normal S2; no gallop, no murmur and no cardiac rub Vessels: no JVD and no carotid bruit Extremities: no edema Gastrointestinal (Abdomen): Inspection/Auscultation: abdomen normal to inspection, normal bowel sounds;not distended Percussion/Palpation: abdomen soft; abdomen nontender, no guarding Musculoskeletal: no cyanosis or clubbing, extremities motor strength 5/5, moves extremities spont. Skin: no rashes, warm and dry Neurologic: alert and oriented, speech fluent, no facial asymmetry, moves all extremities Psychiatric: A+Ox3, euthymic affect Insight: good insight Judgement: good judgement Results & Data ([facility]) Vital Signs (Past 12 Hours) reviewed Laboratory Results reviewed Diagnostic Findings reviewed Medications Administered reviewed (1) CAD (coronary artery disease) Associated angina: with unspecified angina Coronary Disease-Associated Artery/Lesion type: [place] artery [place] vs. transplanted heart: [place] heart Qualified Code(s): I25.119 - Atherosclerotic heart disease of [place] coronary artery with unspecified angina pectoris (2) Chest pain Chest pain type: other chest pain Qualified Code(s): R07.89 - Other chest pain (3) IBS (irritable bowel syndrome) Irritable bowel syndrome type: with diarrhea Qualified Code(s): K58.0 - Irritable bowel syndrome with diarrhea
--- NOTE | 2019-05-10 12:34 | Cardiology Progress Note ---
Date of Service May 10, 2019 Assessment & Plan (1) Abnormal nuclear stress test: (2) Chest pain: (3) CAD (coronary artery disease): (4) Pacemaker: (5) Palpitation: Results of cardiac catheterization discussed with patient at length. Isosorbide monohydrate reduced to 30 mg daily due to borderline resting hypotension. Continue other cardiovascular medications as previously ordered. Postprocedure activity restrictions discussed. No further inpatient cardiovascular testing or intervention. Follow-up in the outpatient cardiology clinic as scheduled. Subjective Patient seen and examined at the bedside. Denies recurrent right-sided chest discomfort or shortness of breath. No dysrhythmias on telemetry. Cardiac catheterization performed 05/09/2019 demonstrating patent RCA stents. Chronic diagonal branch vessel occlusion noted. Patient observed overnight. She is anxious for discharge. Tolerating medications listed below. Offers no new concerns/complaints. Review of Systems Review of Systems: All systems reviewed & are unremarkable except as noted in HPI & below Physical Exam Constitutional: well developed and well nourished Respiratory: normal respiratory effort, lungs clear to auscultation Cardiovascular: Rate/Rhythm: regular rate and regular rhythm Heart Sounds: normal S1 and normal S2; no gallop, no murmur and no cardiac rub Vessels: ulnar pulses present (Right ulnar pulse 3/4); no JVD, no carotid bruit and + radial pulses abnormal (Right radial pulses not palpable, mild ecchymosis of the right anterior wrist.) Extremities: no edema Gastrointestinal (Abdomen): Inspection/Auscultation: abdomen normal to ins pection and normal bowel sounds; abdomen not distended Percussion/Palpation: abdomen soft; abdomen nontender, no guarding and abdomen not rigid Musculoskeletal: no cyanosis or clubbing, extremities motor strength 5/5 Skin: no rashes, warm and dry Neurologic: moves all extremities; no focal motor deficits Psychiatric: A+Ox3, euthymic affect Insight: good insight Judgement: good judgement Results & Data Vital Signs (Past 12 Hours) Vital Signs Temp Pulse Resp BP Pulse Ox 05/10/19 11:08 36.6 C 60 18 120/79 97 05/10/19 07:28 36.5 C 66 18 131/80 98 05/10/19 03:49 36.5 C 56 L 18 93/57 L 97 (1) Chest pain Chest pain type: other chest pain Qualified Code(s): R07.89 - Other chest pain (2) CAD (coronary artery disease) Coronary Disease-Associated Artery/Lesion type: [place] artery [place] vs. transplanted heart: [place] heart Associated angina: with unspecified angina Qualified Code(s): I25.119 - Atherosclerotic heart disease of [place] coronary artery with unspecified angina pectoris
--- NOTE | 2019-05-10 12:53 | Hospitalist Progress Note ---
Date of Service May 10, 2019 Assessment & Plan (1) Chest pain: No ACS Positive nuclear stress test as below Subsequent cardiac cath showed moderate CAD and recommended for medical management Cardiac catheter showed patent RCA stents, chronic diagonal branch vessel occlusion without any significant obstruction of the coronary arteries. Clinically stable today without any symptoms Appreciate cardiology input and recommendation We will continue cardiac medications as advised by drywall applicator Will be discharged home this afternoon (2) CAD (coronary artery disease): Note from prior hospitalist; -patient presenting from home with reports of midsternal chest tightness with radiation under the right arm -took 2 SL nitro at home without relief if symptoms; currently chest pain free -hx of CAD, most recent stenting 10/2018 (KIESRTEN to ostial RCA) -initial trop negative, EKG shows atrial paced rhythm, no acute ST changes -continue to cycle cardiac enzymes, limited echo to evaluate for wall motion abnormalities -PRN nitro and EKG with further episodes of chest pain -continue ASA, plavix, statin, beta chio, nitrate -cardiology consulted - recommended nucl. stress test which pt underwent today (05/08) - lexiscan demonstrating ischemia of the anterior lateral, and posterior lateral corley - given the results of lexiscan above, plan for cardiac cath tomorrow AM (05/09) (3) SSS (sick sinus syndrome): (4) Pacemaker: -no acute issues (5) Anxiety: -continue Buspar and PRN lorazepam -Remains anxious and wants to go home today (6) IBS (irritable bowel syndrome): -managed with Xifaxin (7) DVT prophylaxis: -SQ Lovenox Admission and Anticipated Discharge Date Admission Date: May 09, 2019 Subjective 05/10/2019 The patient was seen and examined in telemetry unit She remains very anxious for some family matters but denies any chest pain and/or palpitation Denies any abdominal pain, nausea and or vomiting She has been ambulating without any difficulty She will be discharged this afternoon Review of Systems Review of Systems: All systems reviewed and are unremarkable except as noted below Cardiovascular: no chest pain, no chest pain at rest and no chest pain with activity Psychiatric: + anxiety Physical Exam Physical Exam: No apparent distress at rest and sitting on a chair Constitutional: well developed and well nourished; no acute distress and not ill appearing Eyes: PERRL, conjunctivae normal, anicteric sclerae ENMT: external ear and nose normal, oropharynx normal Neck: trachea midline, no thyromegaly Respiratory: normal respiratory effort Auscultation: lungs clear to auscultation bilaterally Cardiovascular: Rate/Rhythm: regular rate and regular rhythm Heart Sounds: no murmur Gastrointestinal (Abdomen): Inspection/Auscultation: abdomen normal to inspection and normal bowel sounds Percussion/Palpation: abdomen soft; abdomen nontender Musculoskeletal: No acute arthritis involving any joints Neurologic: Alert, awake and oriented x3 Lymphatic: no cervical or axillary lymphadenopathy Results & Data ([facility]) Vital Signs (Past 12 Hours) Vital Signs Temp Pulse Resp BP Pulse Ox 05/10/19 11:08 36.6 C 60 18 120/79 97 05/10/19 07:28 36.5 C 66 18 131/80 98 05/10/19 03:49 36.5 C 56 L 18 93/57 L 97 Laboratory Results [facility] 05/10/19 06:44 Sodium 141 Potassium 3.6 Chloride 112 H Carbon Dioxide 25 BUN 7 Creatinine 0.59 L Glucose 91 Calcium 8.5 Medications Administered Current Inpatient Medications Acetaminophen (Tylenol) 650 mg PO Q4H PRN PRN Reason: PAIN 1-3 Stop: 06/08/19 11:28 Last Admin: 05/10/19 08:05 Dose: 650 mg Documented by: Aspirin (Ecotrin Ectab) 81 mg PO [facility] Stop: 06/07/19 20:59 Last Admin: 05/09/19 20:45 Dose: 81 mg Documented by: Atenolol (Tenormin) 37.5 mg PO BID [facility] Stop: 06/06/19 20:59 Last Admin: 05/10/19 07:57 Dose: 37.5 mg Documented by: Buspirone HCl (Buspar) 5 mg PO BID [facility] Stop: 06/06/19 20:59 Last Admin: 05/10/19 07:57 Dose: 5 mg Documented by: Clopidogrel Bisulfate (Plavix) 75 mg PO [facility] Stop: 06/06/19 19:44 Last Admin: 05/09/19 20:44 Dose: 75 mg Documented by: Enoxaparin Sodium (Lovenox) 40 mg SQ Q24H [facility] Stop: 06/06/19 19:59 Last Admin: 05/09/19 20:45 Dose: 40 mg Documented by: Hydrochlorothiazide (Hctz) 12.5 mg PO QAM [facility] Stop: 06/07/19 08:59 Last Admin: 05/10/19 07:57 Dose: Not Given Documented by: Isosorbide Mononitrate (Imdur Extended Rel) 30 mg PO QAM [facility] Stop: 06/09/19 08:59 Last Admin: 05/10/19 07:57 Dose: 30 mg Documented by: Lorazepam (Ativan) 0.5 mg PO TID PRN PRN Reason: Anxiety Stop: 06/06/19 15:46 Last Admin: 05/09/19 20:55 Dose: 0.5 mg Documented by: Nitroglycerin (Nitrostat) 0.4 mg SL UD PRN PRN Reason: Chest Pain Stop: 06/06/19 15:46 Pantoprazole [facility] ([facility]ix) [facility] Stop: 06/07/19 08:59 Last Admin: 05/10/19 07:58 Dose: 40 mg Documented by: Rifaximin (Xifaxan) 550 mg PO TID [facility] Stop: 06/06/19 20:59 Last Admin: 05/10/19 07:58 Dose: Not Given Documented by: Simvastatin (Zocor) 40 mg PO HS [facility] Stop: 06/06/19 20:59 Last Admin: 05/09/19 20:44 Dose: 40 mg Documented by: Vitamin D (Vitamin D3) 2,000 units PO QAM [facility] Stop: 06/07/19 08:59 Last Admin: 05/10/19 07:57 Dose: 2,000 units Documented by: (1) Chest pain Chest pain type: other chest pain Qualified Code(s): R07.89 - Other chest pain (2) CAD (coronary artery disease) Coronary Disease-Associated Artery/Lesion type: [place] artery [place] vs. transplanted heart: [place] heart Associated angina: with unspecified angina Qualified Code(s): I25.119 - Atherosclerotic heart disease of [place] coronary artery with unspecified angina pectoris (3) IBS (irritable bowel syndrome) Irritable bowel syndrome type: with diarrhea Qualified Code(s): K58.0 - I rritable bowel syndrome with diarrhea
--- NOTE | 2019-05-11 08:03 | Discharge Summary ---
Date of Service May 11, 2019 Admission HPI Per Admitting Provider 73 year old female who presents to the ED for evaluation of chest pain. Patient with history of CAD, most recent stenting 10/2018. Patient reports that she has not felt well over the past couple days. [place] that she is more tired than normal and not herself. Today, patient reports she had midsternal chest tightness with radiation under the right arm. Patient reports she took 2 nitroglycerin at home without any relief of her symptoms. Symptoms did subsequently subside on their own. Patient is currently chest pain-free. She believes her discomfort is similar to what has prompted her cardiac cath and stents in the past. She denies associated shortness of breath, nausea, diaphoresis. No lightheadedness, dizziness, syncopal event. Reports she otherwise been feeling well recently. No abdominal pain, nausea, vomiting, diarrhea. Denies fevers and chills. No urinary symptoms. In the ED, initial troponin is negative and EKG does not show any acute ST changes. Patient was given a full dose aspirin. Admission Exam Per Admitting Provider Gen-AAO x 3, NAD, Afebrile, Obese Head-NCAT, EOMI, PERRLA, Anicteric Sclera, No Posterior Pharyngeal Erythema Neck-Supple, No JVD, No Thyromegaly, No Masses, No LAD, No Bruits Lungs-Clear to Auscultation Bilaterally, No Rales, No Rhonchi, No Wheezing, No Crepitus Chest-No S4, +S1, +S2, No S3, No Murmurs, No Rubs, No Gallops, No Ectopy Abdomen-Soft, Bowel Sounds Present, Non Tender, Non Distended, No Hepatomegaly, No Splenomegaly, No Palpable Masses, No Rebound, No Rigidity, No Guarding Musculoskeletal-Full Range of Motion Bilaterally, No CVAT Extremities-No Cyanosis, No Clubbing, No Edema Nuero-Cranial Nerves II-XII grossly intact, Motor WNL, DTRs WNL, Strength WNL, Non Focal Psych-Normal Mood Principal Diagnosis Chest pain, no ACS, moderate CAD on cardiac cath Discharge Exam Constitutional well developed and well nourished; no acute distress and not ill appearing Eyes PERRL, conjunctivae normal, anicteric sclerae ENMT external ear and nose normal, oropharynx normal Neck trachea midline, no thyromegaly Respiratory normal respiratory effort Auscultation: lungs clear to auscultation bilaterally Cardiovascular Rate/Rhythm: regular rate and regular rhythm Heart Sounds: no murmur Gastrointestinal (Abdomen) Inspection/Auscultation: abdomen normal to inspection and normal bowel sounds Percussion/Palpation: abdomen soft; abdomen nontender Lymphatic no cervical or axillary lymphadenopathy Discharge Data Allergies Allergy/AdvReac Type Severity Reaction Status Date / Time escitalopram Allergy Unknown itching Verified 05/07/19 12:53 latex Allergy Unknown RASH Verified 05/07/19 12:53 epinephrine AdvReac Intermediate HEART RACES Verified 05/07/19 12:53 chlorhexidine AdvReac Mild rash, Verified 05/07/19 12:53 itching alprazolam AdvReac Unknown HEADACHE Verified 05/07/19 12:53 Consultations 05/07/19 13:55 ED Decision to Admit Stat 05/07/19 15:47 Consult Cardiology Routine Procedures Performed Operation Date: 05/09/19 09:30 Actual Procedures s Cineradiography w/Routine Exam - Harsh Waller MD p Cath, Coronaries ONLY (no LV) - Harsh Waller MD Ordered Studies 05/09/19 09:55 CL Cath Imgs for PACS use only Routine Hospital Course (1) Chest pain: No ACS Positive nuclear stress test as below Subsequent cardiac cath showed moderate CAD and recommended for medical management Cardiac catheter showed patent RCA stents, chronic diagonal branch vessel occlusion without any significant obstruction of the coronary arteries. Clinically stable today without any symptoms Appreciate cardiology input and recommendation We will continue cardiac medications as advised by aviation mechanic Will be discharged home this afternoon (2) CAD (coronary artery disease): Note from prior hospitalist; -patient presenting from home with reports of midsternal chest tightness with radiation under the right arm -took 2 SL nitro at home without relief if symptoms; currently chest pain free -hx of CAD, most recent stenting 10/2018 (KIERSTEN to ostial RCA) -initial trop negative, EKG shows atrial paced rhythm, no acute ST changes -continue to cycle cardiac enzymes, limited echo to evaluate for wall motion abnormalities -PRN nitro and EKG with further episodes of chest pain -continue ASA, plavix, statin, beta chio, nitrate -cardiology consulted - recommended nucl. stress test which pt underwent today (05/08) - lexiscan demonstrating ischemia of the anterior lateral, and posterior lateral corley - given the results of lexiscan above, plan for cardiac cath tomorrow AM (05/09) (3) SSS (sick sinus syndrome): (4) Pacemaker: -no acute issues (5) Anxiety: -continue Buspar and PRN lorazepam -Remains anxious and wants to go home today (6) IBS (irritable bowel syndrome): -managed with Xifaxin (7) DVT prophylaxis: -SQ Lovenox Total Time Total Time Spent Total Time Spent (In Minutes): 35 minutes Total Time Includes: Examination of the Patient, Discharge Planning, Medication Reconciliation and Communication With Other Providers Discharge Plan Discharge Items Patient Disposition: Home - Self-Care Reason For Visit: CHEST PAIN Discharge Diagnosis: Chest pain, no ACS, moderate CAD on cardiac cath Condition on Discharge: Good Activity: Resume your previous activity Non-emergency contact: Primary Care Provider Call non-emergency contact if: your symptoms worsen Follow-up/Referrals: Anders Crawley DO [Primary Care Provider] - 05/15/19 10:45 am (Your appointment is with Dr. Baig. Dr. Quezada is not available.) Diet: Heart Healthy Addtl Attending Provider Instructions: Please take precaution to avoid falls Please keep appointment with your primary care provider and aviation mechanic Transition of Care appointment with Suyapa Mooney RN on Friday 05/12 at 2:30 in your home. Pending Studies at Discharge: No Stand-Alone Forms: My [facility] Toothpick, Smoking Cessation Medications and DC Order Prescriptions: New isosorbide mononitrate 30 mg Tablet Extended Release 24 Hr 30 mg PO QAM 30 Days Qty: 30 RF: 0 Continued buspirone 5 mg Tablet 5 mg PO BID RF: 0 loperamide [Imodium A-D] 2 mg Capsule 2 mg PO Q4H PRN (Reason: Diarrhea) RF: 0 sucralfate [Carafate] 1 gram Tablet 1 g PO QID PRN (Reason: reflux) RF: 0 aspirin 81 mg Tablet,Delayed Release (Dr/Ec) 81 mg PO HS RF: 0 simvastatin 40 mg Tablet 40 mg PO HS RF: 0 acetaminophen [Tylenol Arthritis Pain] 650 mg Tablet Extended Release 650 mg PO DIRECTED PRN (Reason: Pain) RF: 0 potassium 99 mg Tablet 99 mg PO QAM RF: 0 lorazepam 0.5 mg Tablet 0.5 mg PO TID PRN (Reason: Anxiety) RF: 0 triamcinolone acetonide 0.1 % Ointment 1 applic TOPICAL BID RF: 0 clotrimazole-betamethasone [Lotrisone] 1-0.05 % Cream 1 applic TOPICAL BID RF: 0 metronidazole [MetroCream] 0.75 % Cream 1 applic TOPICAL QAM RF: 0 nitroglycerin [Nitrostat] 0.4 mg Tablet, Sublingual 0.4 mg sublingual DIRECTED PRN (Reason: Chest Pain) RF: 0 hydrocortisone 2.5 % Cream 1 applic topical BID RF: 0 desonide 0.05 % Lotion 1 applic TOPICAL BID RF: 0 hydrochlorothiazide 25 mg Tablet 12.5 mg PO QAM RF: 0 estradiol 0.5 mg Tablet 1 dose PO SUTUTHSA RF: 0 albuterol sulfate [Proventil HFA] 90 mcg/actuation Hfa Aerosol Inhaler 2 puff INHALATION Q4 PRN (Reason: Wheezing) RF: 0 dicyclomine 10 mg Capsule 10 mg PO BID PRN (Reason: diarrhea and abdominal pain) RF: 0 cholecalciferol (vitamin D3) [Vitamin D3] 2,000 unit Capsule 2,000 unit PO QAM RF: 0 Probiotic 3 billion cell Capsule 3 mmu PO QAM RF: 0 Xiidra 5 % Dropperette 1 drp OPHTHALMIC (EYE) BID RF: 0 Cbd Oil 7.5 drp PO BID PRN (Reason: Pain) RF: 0 clopidogrel 75 mg Tablet 75 mg PO QAM RF: 0 atenolol 25 mg Tablet 37.5 mg PO BID Qty: 45 RF: 0 polymyxin B sulf-trimethoprim 10,000 unit- 1 mg/mL Drops 1 drp OPHTHALMIC (EYE) Q4H RF: 0 Xifaxan 550 mg Tablet 550 mg PO TID RF: 0 pantoprazole [Protonix] 40 mg tablet,delayed release (DR/EC) 40 mg PO QAM RF: 0 Discontinued isosorbide mononitrate 60 mg Tablet Extended Release 24 Hr 60 mg PO QAM RF: 0 Discharge Orders: Discharge Order (Routine); Ordered 05/10/19 Ordered By: Feliec Fabian Admission Data Admit Date/Time: 05/09/19 01:37 Attending Provider: Felice Fabian Admit Provider: Isaac Reyes Primary Care Provider: Anders Crawley Other Providers: Isaac Reyes ; Akash Mccabe ; Burke Ireland Other Interventions: Discharge Summary Assessment (RN) Last Done: 05/10/19 14:29 DC Date/Time DO NOT enter until pt leaves facility: 05/10/19 14:53
== END 2019-05-10 14:53 | disposition home or self-care (01) | DRG 287 ==
LOC: ED 11:25 → 2S 11:25 → SUATTDRO 14:23 → 2S 14:51 → SUATTDRO 05-09 01:37
PROC: CLB.CCO (2019-05-09 09:30)

== ENCOUNTER 2020-11-23 00:53 | Inpatient (IN) ==
[2020-11-23] MEDS ORDERED: ONDANSETRON INJ 2 MG/ML 2 ML VIAL IV STA (02:00)
[2020-11-23] MEDS ORDERED: fentaNYL citrate 100 MCG/2 ML VIAL IV STA (02:45)
--- NOTE | 2020-11-23 03:01 | Emergency Department Note ---
Impression & Plan Chest pain Admit to the [facility] service ED Provider Note NAME: GARRISON DAWSON AGE: 74 SEX: F ARRIVES VIA: Ambulance INFORMANT: Patient ED PROVIDER(S): Deb Zelaya DO CHIEF COMPLAINT: Epigastric pain/back pain PLAN: Disposition: Admit to the [facility] service Condition: Good MEDICAL DECISION MAKING: This is a 74-year-old female patient presents to the emergency department complaining of epigastric pain and back pain. Patient had a normal-appearing EKG and negative cardiac marker. Chest x-ray was unremarkable. Patient's pain was not affected by nitroglycerin but was relieved by IV fentanyl. The patient's pain could not be reproduced on abdominal exam or with palpation of the chest wall. She did have some associated nausea. The patient is comfortable at this time but will require further inpatient care to rule out cardiac ischemia and additional causes of this epigastric/chest discomfort. I discussed the case with the [facility] and they will evaluate for further management. Triage Nursing notes reviewed and agree them. Prior medical records reviewed Vital Signs: reviewed and unremarkable Differential diagnosis: Cardiac dysrhythmia, cardiac ischemia, cholecystitis, PE, pancreatitis, GERD, medication side effects ER treatment provided: IV Zofran IV fentanyl Diagnostics interpreted by me: ECG: Atrial paced rhythm with prolonged AV conduction at a rate of [address] segment elevation or signs of ischemia. There is no ectopy. Cardiac Monitoring: Paced rhythm at a rate of 64 Laboratory studies: See below Imaging studies: As per my interpretation Chest x-ray: No acute pulmonary infiltrates or consolidations HPI: 74/F arrives for evaluation of epigastric pain/back pain. This is a 74-year-old female patient who presents to the emergency department after she could not get comfortable around 9 PM this evening because she was having epigastric discomfort and back discomfort. Patient got up out of bed and went off to her recliner but still could not get comfortable. Patient was also complaining of nausea. Around 11 PM she took a total of 3 sublingual nitroglycerin which did not relieve her pain. The patient has been taking medications for C. difficile for the past 5 days. She had been on antibiotics for a cellulitis to the left side of her face which resulted in a vaginal yeast infection and then C. difficile. ROS: See above HPI for pertinent positives & negatives. A total of 10 systems reviewed and were otherwise negative. PAST MEDICAL HISTORY:See Below PAST SURGICAL HISTORY:See Below FAMILY HISTORY:See Below SOCIAL HISTORY:See Below HOME MEDICATIONS:See list ALLERGIES:See list VITALS:See Below PHYSICAL EXAMINATION: HEENT: Head - normocephalic and atraumatic Pupils are equal, round, and reactive to light. Extraocular eye muscles are intact, and sclera are anicteric. Nose - moist nasal mucosa without discharge. Mouth - moist buccal mucosa. Oropharynx is nonerythematous and there is no tonsillar exudate or edema noted. Neck: Supple; no JVD, nuchal rigidity, cervical lymphadenopathy, or auscultated bruits. Heart: Regular rate and rhythm. There is a normal S1 and S2 with no murmurs, clicks, or gallops appreciated. Lungs: Clear to auscultation bilaterally with no wheezes, rales, or rhonchi. Abdomen: Soft, completely nontender, nondistended, with good bowel sounds. There are no palpable pulsatile masses or hepatosplenomegaly. There is no guarding, rigidity, or rebound noted. Extremities: No evidence of cyanosis, clubbing, or edema. There are easily palpable peripheral pulses. Skin: warm and dry with good turgor and no rashes. ED COURSE: Times/Reassessments: 0140: The patient was evaluated in room B3. A complete history and physical was performed. An order was placed for continuous cardiac monitoring. The patient was in a paced rhythm at a rate of 64. Laboratory studies were drawn as above. The patient was given 4 mg of IV Zofran for the nausea. She was also given 50 mcg of IV fentanyl for the pain which gave her complete relief of her discomfort. The patient's discomfort did not return while she was here in the ER. Deb Zelaya DO Past Med/Surg History Medical History (Updated 11/23/20 @ 22:39 by Deb Zelaya DO) Anxiety Asthma CAD (coronary artery disease) per outpatient cardio note: History of anterior wall [place] at age 45, PTCA of the LAD at that time. Abnormal stress testing in March 2004 with repeat catheterization on 04-09-04 demonstrating nonobstructive CAD with a total chronic occlusion of a 2nd diagonal branch and mild CAD elsewhere. Cardiac catheterization in July 2016 demonstrating the chronic total occlusion of a diagonal branch with [id number] collaterals, 30% ostial RCA stenosis, and 30% mid RCA stenosis. LVEDP normal, 8 mmHg. Presentation to [facility] May 2018 with unstable angina. Diagnostic cardiac catheterization with severe single-vessel coronary artery disease with an 80% mid RCA stenosis for which she underwent PCI, 3.0 x 18 mm drug-eluting stent implantation by Dr. Mclaughlin Admission to [facility] in October 2018 with unstable angina, status post November 16, 2018 cardiac catheterization which demonstrated a severe, moderately calcified, 70% ostial right coronary artery stenosis with catheter dampening noted on engagement, status post successful PCI the ostial RCA with a single 3.0 x 12 Xience Eda drug-eluting stent. The previously placed mid RCA stent was noted to be patent. Chronic diagonal occlusion with collaterals. Diverticulosis of colon GERD (gastroesophageal reflux disease) History of myocardial infarction (03/01/11) "anterior wall [place]" HTN (hypertension) IBS (irritable bowel syndrome) Pacemaker SSS (sick sinus syndrome) Surgical History H/O exploratory laparotomy "02/05/15 Dr. Marques Rodriguez" History of cataract extraction History of hysterectomy History of Faisal fundoplication "02/05/[address] Marques Rodriguez" History of PTCA History of tonsillectomy and adenoidectomy S/P repair of paraesophageal hernia "02/04/15 complicated by esophageal perforation" Family History Father Lung cancer Mother Hypertension Social History Smoking Status: Former smoker Tobacco Type: Cigarettes Second Hand Exposure: No; Hx Alcohol Use: Yes Alcohol type: hard liquor Hx Substance Use: No Preferred Language: Telugu Communication Ability: Effective Detail Technician Required: No Beliefs That Will Affect Care: None marital status: Current Living Situation: Spouse Current Living Situation Comment: independent retirement appartment current occupation: retired How many Children do You have: 2 Other Information That Helps Us Care for You: No Feels Safe at Home: Yes Safety Concerns: Feels Safe At This Time Assistive Devices: None Allergies Allergies Allergy/AdvReac Type Severity Reaction Status Date / Time escitalopram Allergy Unknown itching Verified 08/01/19 05:01 latex Allergy Unknown RASH Verified 08/01/19 05:01 epinephrine AdvReac Intermediate HEART RACES Verified 08/01/19 05:01 chlorhexidine AdvReac Mild rash, Verified 08/01/19 05:01 itching alprazolam AdvReac Unknown HEADACHE Verified 08/01/19 05:01 Home Meds Home Medications Medication Instructions Recorded Confirmed Cbd Oil 7.5 drp PO BID PRN 06/16/18 11/23/20 acetaminophen 650 mg 650 mg PO DIRECTED PRN 06/16/18 11/23/20 tablet,extended release (Tylenol Arthritis Pain) albuterol sulfate 90 mcg/actuation 2 puff INHALATION Q4 PRN 06/16/18 11/23/20 aerosol inhaler (Proventil HFA) aspirin 81 mg tablet,delayed 81 mg PO HS 06/16/18 11/23/20 release (Aspirin Low Dose) buspirone 5 mg tablet 5 mg PO BID 06/16/18 11/23/20 cholecalciferol (vitamin D3) 50 2,000 unit PO QAM 06/16/18 11/23/20 mcg (2,000 unit) capsule (Vitamin D3) dicyclomine 10 mg capsule 10 mg PO BID 06/16/18 11/23/20 estradiol 0.5 mg tablet (Estrace) 1 dose PO SUTUTHSA 06/16/18 11/23/20 hydrochlorothiazide 25 mg tablet 12.5 mg PO QAM PRN 06/16/18 11/23/20 lactobacillus combination no.4 3 3 mmu PO QDD 06/16/18 11/23/20 billion cell capsule (Probiotic) loperamide 2 mg capsule (Imodium 2 mg PO Q4H PRN 06/16/18 11/23/20 A-D) lorazepam 0.5 mg tablet (Ativan) 0.5 mg PO TID PRN 06/16/18 11/23/20 nitroglycerin 0.4 mg sublingual 0.4 mg SUBLINGUAL DIRECTED PRN 06/16/18 11/23/20 tablet (Nitrostat) simvastatin 40 mg tablet (Zocor) 40 mg PO HS 06/16/18 11/23/20 clopidogrel 75 mg tablet (Plavix) 75 mg PO HS 11/16/18 11/23/20 pantoprazole 40 mg tablet,delayed 40 mg PO QAM 05/07/19 11/23/20 release (Protonix) atenolol 50 mg tablet (Tenormin) 50 mg PO AMHS 08/01/19 11/23/20 Cbd Gummies 2 tab PO UD 11/23/20 11/23/20 Potassium 99mg 99 mg PO HS 11/23/20 11/23/20 colestipol 1 gram tablet (Colestid) 1 g PO QDD 11/23/20 11/23/20 cyanocobalamin (vitamin B-12) 0 mcg PO QDD 11/23/20 11/23/20 1,000 mcg tablet (Vitamin B-12) vancomycin 125 mg capsule 125 mg PO Q6H 11/23/20 11/23/20 (Vancocin) Results & Data (ED) Vital Signs Vital Signs - 24 hr 11/23/20 01:18 11/23/20 02:00 11/23/20 02:30 Temperature 36.4 C L Temperature Source Oral Pulse Rate 64 64 60 Pulse Rate from SpO2 Sensor 63 Respiratory Rate 18 18 20 Respiratory Effort / Characteristics Non-Labored Spontaneous Respiratory Depth Normal Respiratory Pattern Regular Blood Pressure 130/79 122/72 129/81 Blood Pressure Mean 96 88 97 Pulse Oximetry 99 98 Oxygen Delivery Method Room Air Sepsis Recent Fever Within 48 Hours No Sepsis New/Unexplained Change in Mental Status No Sepsis Action Taken by Nursing No Action Required 11/23/20 03:02 11/23/20 03:30 11/23/20 04:00 Temperature Temperature Source Pulse Rate 61 64 64 Pulse Rate from SpO2 Sensor 64 64 Respiratory Rate 21 16 17 Respiratory Effort / Characteristics Respiratory Depth Respiratory Pattern Blood Pressure 119/69 117/62 Blood Pressure Mean 85 80 Pulse Oximetry 96 97 Oxygen Delivery Method Sepsis Recent Fever Within 48 Hours Sepsis New/Unexplained Change in Mental Status Sepsis Action Taken by Nursing 11/23/20 04:30 11/23/20 05:01 11/23/20 05:30 Temperature Temperature Source Pulse Rate 63 59 L 63 Pulse Rate from SpO2 Sensor 62 60 60 Respiratory Rate 16 14 17 Respiratory Effort / Characteristics Respiratory Depth Respiratory Pattern Blood Pressure 143/67 H 150/89 H 129/76 Blood Pressure Mean 92 109 93 Pulse Oximetry 98 98 98 Oxygen Delivery Method Sepsis Recent Fever Within 48 Hours Sepsis New/Unexplained Change in Mental Status Sepsis Action Taken by Nursing 11/23/20 06:02 Temperature Temperature Source Pulse Rate 62 Pulse Rate from SpO2 Sensor 62 Respiratory Rate 15 Respiratory Effort / Characteristics Respiratory Depth Respiratory Pattern Blood Pressure Blood Pressure Mean Pulse Oximetry 98 Oxygen Delivery Method Sepsis Recent Fever Within 48 Hours Sepsis New/Unexplained Change in Mental Status Sepsis Action Taken by Nursing Laboratory Data Result diagrams: 11/23/20 02:45 11/23/20 02:45 Lab Results 11/23/20 11/23/20 11/23/20 Range/Units 02:45 02:45 02:45 WBC 7.85 (4.8-10.8) K/uL RBC 4.31 (4.2-5.4) M/uL Hgb 13.6 (12.0-16.0) g/dL Hct 40.5 (37-47) % MCV 94.0 (80-100) fL MCH 31.6 (25-34) pg MCHC 33.6 (32-36) g/dL RDW Std Deviation 45.1 (36.4-46.3) fL RDW Coeff of Nanette 13.1 (11.5-14.5) % Plt Count 278 (130-400) K/uL MPV 9.8 (7.4-10.4) fL Immature Gran % (Auto) 0.0 % Neut % (Auto) 70.8 % Lymph % (Auto) 21.9 % Powell % (Auto) 6.4 % Eos % (Auto) 0.8 % Baso % (Auto) 0.1 % Neut # (Auto) 5.56 (1.4-6.5) K/uL Lymph # (Auto) 1.72 (1.2-3.4) K/uL Powell # (Auto) 0.50 (0.11-0.59) K/uL Eos # (Auto) 0.06 (0-0.5) K/uL Baso # (Auto) 0.01 (0-0.2) K/uL Immature Gran # (Auto) 0.00 (0.00-0.02) K/uL APTT 23.8 (21.0-31.0) Seconds PTT Ratio 0.9 Sodium 141 (136-145) mmol/L Potassium 3.9 (3.5-5.1) mmol/L Chloride 111 H (98-107) mmol/L Carbon Dioxide 24 (21-32) mmol/L Anion Gap 6.0 (3-11) BUN 3 L (7-18) mg/dl Creatinine 0.72 (0.6-1.2) mg/dl Est Cr Clr Drug Dosing Not Reportable Est GFR ( Amer) 94.9 ml/min Est GFR (Non-Af Amer) 81.9 ml/min BUN/Creatinine Ratio 4.5 L (10-20) Glucose 89 (70-99) mg/dl Calcium 8.7 (8.5-10.1) mg/dl Total Bilirubin 0.3 (0.2-1) mg/dl AST 14 L (15-37) U/L ALT 15 (12-78) U/L Alkaline Phosphatase 105 (45-117) U/L Troponin I < 0.015 (0-0.045) ng/ml Total Protein 6.9 (6.4-8.2) gm/dl Albumin 3.3 L (3.4-5.0) gm/dl Globulin 3.6 (2.5-4.0) gm/dl Albumin/Globulin Ratio 0.9 (0.9-2) Lipase 164 (73-393) U/L COVID-19 Eval Order SARS-CoV-2 (PCR) (Negative) 11/23/20 11/23/20 Range/Units 03:05 03:05 WBC (4.8-10.8) K/uL RBC (4.2-5.4) M/uL Hgb (12.0-16.0) g/dL Hct (37-47) % MCV (80-100) fL MCH (25-34) pg MCHC (32-36) g/dL RDW Std Deviation (36.4-46.3) fL RDW Coeff of Nanette (11.5-14.5) % Plt Count (130-400) K/uL MPV (7.4-10.4) fL Immature Gran % (Auto) % Neut % (Auto) % Lymph % (Auto) % Powell % (Auto) % Eos % (Auto) % Baso % (Auto) % Neut # (Auto) (1.4-6.5) K/uL Lymph # (Auto) (1.2-3.4) K/uL Powell # (Auto) (0.11-0.59) K/uL Eos # (Auto) (0-0.5) K/uL Baso # (Auto) (0-0.2) K/uL Immature Gran # (Auto) (0.00-0.02) K/uL APTT (21.0-31.0) Seconds PTT Ratio Sodium (136-145) mmol/L Potassium (3.5-5.1) mmol/L Chloride (98-107) mmol/L Carbon Dioxide (21-32) mmol/L Anion Gap (3-11) BUN (7-18) mg/dl Creatinine (0.6-1.2) mg/dl Est Cr Clr Drug Dosing Est GFR ( Amer) ml/min Est GFR (Non-Af Amer) ml/min BUN/Creatinine Ratio (10-20) Glucose (70-99) mg/dl Calcium (8.5-10.1) mg/dl Total Bilirubin (0.2-1) mg/dl AST (15-37) U/L ALT (12-78) U/L Alkaline Phosphatase (45-117) U/L Troponin I (0-0.045) ng/ml Total Protein (6.4-8.2) gm/dl Albumin (3.4-5.0) gm/dl Globulin (2.5-4.0) gm/dl Albumin/Globulin Ratio (0.9-2) Lipase (73-393) U/L COVID-19 Eval Order Covid19 at [facility] SARS-CoV-2 (PCR) NEGATIVE (Negative) Administered Medications Aspirin (Aspirin 81 Mg Ectab) 81 mg PO HS MAGED Stop: 12/23/20 20:59 Last Admin: 11/23/20 20:34 Dose: 81 mg Documented by: [id number] Atenolol (Atenolol 50 Mg Tablet) 50 mg PO BID MAGED Stop: 12/23/20 09:59 Last Admin: 11/23/20 20:35 Dose: 50 mg Documented by: [id number] Admin: 11/23/20 10:57 Dose: 50 mg Documented by: [id number] Buspirone HCl (Buspirone 5 Mg Tab) 5 mg PO BID MAGED Stop: 12/23/20 09:44 Last Admin: 11/23/20 20:35 Dose: 5 mg Documented by: [id number] Admin: 11/23/20 10:57 Dose: 5 mg Documented by: [id number] Clopidogrel Bisulfate (Clopidogrel Bisulfate 75 Mg Tab) 75 mg PO HS MAGED Stop: 12/23/20 20:59 Last Admin: 11/23/20 20:34 Dose: 75 mg Documented by: [id number] Colestipol HCl (Colestipol Hcl 1 Gm Tab) 1 gm PO QDD MAGED Stop: 12/23/20 16:29 Last Admin: 11/23/20 20:35 Dose: 1 gm Documented by: [id number] Cyanocobalamin (Cyanocobalamin 500 Mcg Tablet (Vitamin B-12)) 500 mcg PO QDD MAGED Stop: 12/23/20 16:29 Last Admin: 11/23/20 19:35 Dose: Not Given Documented by: [id number] Dicyclomine HCl (Dicyclomine Hcl 10 Mg Cap) 10 mg PO BID MAGED Stop: 12/23/20 09:44 Last Admin: 11/23/20 20:35 Dose: 10 mg Documented by: [id number] Admin: 11/23/20 10:57 Dose: 10 mg Documented by: [id number] Fidaxomicin (Fidaxomicin 200 Mg Tab) 200 mg PO BID MAGED Stop: 12/03/20 10:59 Last Admin: 11/23/20 20:44 Dose: 200 mg Documented by: [id number] Admin: 11/23/20 13:45 Dose: 200 mg Documented by: [id number] Sodium Chloride (Nss 1000ml) 1,000 mls @ 125 mls/hr IV .Q8H MAGED Stop: 12/23/20 09:27 Last Admin: 11/23/20 19:54 Dose: 125 mls/hr Documented by: [id number] Infusion: 11/23/20 18:54 Dose: 125 mls/hr Documented by: [id number] Admin: 11/23/20 10:54 Dose: 125 mls/hr Documented by: [id number] Lactobacillus Acidoph/Casei/Rhamnos (Advanced Probiotic 1250 Mg Capsule) 2 cap PO QDD MAGED Stop: 12/23/20 16:29 Last Admin: 11/23/20 20:35 Dose: 2 cap Documented by: [id number] Lorazepam (Lorazepam 0.5 Mg Tab) 0.5 mg PO TID PRN PRN Reason: Anxiety Stop: 12/23/20 09:35 Last Admin: 11/23/20 20:44 Dose: 0.5 mg Documented by: [id number] Admin: 11/23/20 13:56 Dose: 0.5 mg Documented by: [id number] Ondansetron HCl (Ondansetron Inj 2 Mg/Ml 2 Ml Vial) 4 mg IV Q6H PRN PRN Reason: Nausea Stop: 12/23/20 09:27 Last Admin: 11/23/20 16:27 Dose: 4 mg Documented by: [id number] Pantoprazole Sodium (Pantoprazole 40 Mg Tab) [facility] Stop: 12/23/20 09:44 Last Admin: 11/23/20 10:57 Dose: 40 mg Documented by: [id number] Simvastatin (Simvastatin 40 Mg Tab) 40 mg PO [facility] Stop: 12/23/20 20:59 Last Admin: 11/23/20 20:35 Dose: 40 mg Documented by: [id number] Vitamin D (Cholecalciferol 1,000 Units 25 Mcg Tab) 2,[facility] [place] Stop: 12/23/20 09:59 Last Admin: 11/23/20 10:57 Dose: 2,000 units Documented by: [id number] Discontinued Medications Fentanyl Citrate (Fentanyl Citrate 100 Mcg/2 Ml Vial) 50 mcg IV NOW STA Stop: 11/23/20 02:46 Last Admin: 11/23/20 03:07 Dose: 50 mcg Documented by: [id number] Ondansetron HCl (Ondansetron Inj 2 Mg/Ml 2 Ml Vial) 4 mg IV NOW STA Stop: 11/23/20 02:01 Last Admin: 11/23/20 02:41 Dose: 4 mg Documented by: [id number] Discharge Plan Visit Data Chief Complaint: Chest Pain Stated Complaint: CHEST PAIN ED Provider: Deb Zelaya Discharge Problem: Chest pain Patient Disposition: Admitted As Inpatient Discharge Instructions Interventions: ED Discharge Assessment Last Done: 11/23/20 09:11 Discharge Problem: Chest pain Qualifiers: Chest pain type: unspecified Qualified Code(s): R07.9 - Chest pain, unspecified
[2020-11-23 03:47] LABS: Basophils # (auto) 0.01 K/uL (0-0.2); Basophils % (auto) 0.1 %; Eosinophils # (auto) 0.06 K/uL (0-0.5); Eosinophils % (auto) 0.8 %; Hematocrit (blood only) 40.5 % (37-47); Hemoglobin 13.6 g/dL (12.0-16.0); Lymphocytes # (auto) 1.72 K/uL (1.2-3.4); Lymphocytes % (auto) 21.9 %; Mean Corpuscular Hemoglobin 31.6 pg (25-34); Mean Corpuscular Hgb Conc 33.6 g/dL (32-36); Mean Platelet Volume 9.8 fL (7.4-10.4); Monocytes % (auto) 6.4 %; Neutrophils # (auto) 5.56 K/uL (1.4-6.5); Neutrophils % (auto) 70.8 %; Platelet Count 278 K/uL (130-400); RDW Coefficient of Variation 13.1 % (11.5-14.5); RDW Standard Deviation 45.1 fL (36.4-46.3); Red Blood Count 4.31 M/uL (4.2-5.4); White Blood Count 7.85 K/uL (4.8-10.8)
[2020-11-23 04:05] LABS: Alanine Aminotransferase 15 U/L (12-78); Albumin Level 3.3 gm/dl (3.4-5.0); Aspartate Aminotransferase 14 U/L (15-37); BUN Creatinine Ratio 4.5 (10-20); Blood Urea Nitrogen 3 mg/dl (7-18); Calcium 8.7 mg/dl (8.5-10.1); Carbon Dioxide 24 mmol/L (21-32); Chloride 111 mmol/L (98-107); Est GFR (African American) 94.9 ml/min; Est GFR (Non-African American) 81.9 ml/min; Glucose 89 mg/dl (70-99); Lipase 164 U/L (73-393); Potassium 3.9 mmol/L (3.5-5.1); Sodium 141 mmol/L (136-145)
[2020-11-23 04:10] LABS: Albumin Globulin Ratio 0.9 (0.9-2); Alkaline Phosphatase 105 U/L (45-117); Bilirubin,Total 0.3 mg/dl (0.2-1); Globulin 3.6 gm/dl (2.5-4.0); Total Protein 6.9 gm/dl (6.4-8.2); Troponin I < 0.015 ng/ml (0-0.045)
[2020-11-23 04:14] LABS: Partial Thromboplastin Ratio 0.9; Partial Thromboplastin Time 23.8 Seconds (21.0-31.0)
--- NOTE | 2020-11-23 07:29 | XRay Report ---
XR chest 1V portable CLINICAL HISTORY: Chest Pain COMPARISON STUDY: Chest radiograph May 07, 2019. FINDINGS: A left subclavian pacemaker is in place. There is a hiatal hernia. Lung volumes are normal. Lungs are clear. There is no pneumothorax or pleural effusion. Cardiac size is normal. Mediastinal c ontours are normal. There is no evidence for pulmonary edema. IMPRESSION: No acute cardiopulmonary findings. ACT 112: Negative or not required by law. Electronically signed by: Robbie Spencer M.D. 11/23/2020 7:27 AM
--- NOTE | 2020-11-23 09:27 | History and Physical Report ---
DATE OF ADMISSION: 11/23/2020. CHIEF COMPLAINT: Chest pain. HISTORY OF PRESENT ILLNESS: This is a 74-year-old female with past medical history significant for hyperlipidemia, moderate asthma without complication, hypertension, peripheral vascular disease, sick sinus syndrome, status post pacemaker, history of CAD, history of irritable bowel syndrome, GERD, anemia due to vitamin B12 deficiency, vitamin D deficiency, diverticulosis, GERD, rectocele, generalized osteoarthritis, degenerative disk disease, generalized anxiety disorder, history of cigarette smoking, who lives with her , presents with chest pain. The patient states she was recently treated for cellulitis of the face that is resolved, but about a week ago, she developed diarrhea and tested for C. diff and started taking p.o. vancomycin since last Wednesday. Yesterday, she had a lot of diarrhea. She soiled herself couple of times and she has to take shower and clean herself then after later in the night when she went to bed to sleep she developed chest pain. Chest discomfort radiating to her back, it was similar kind of pain when she had a heart attack at the age of 45. She took three nitro it did not help her then she decided to come to the ER. Currently, resting on her bed, she is feeling comfortable. She does not know how she feels if she gets up and walks. Denies any shortness of breath, no palpitations. No nausea. No sweating, currently has some headache from the nitro. Has some blurred visions, no earache, no runny nose, no sore throat. Appetite is okay. No difficulty swallowing. Has abdominal cramps on and off sometimes, still having diarrhea, but she did not move any bowels since she came to the ER. Normal bladder movements. No swelling in the legs. ALLERGIES: LEXAPRO, LATEX, EPINEPHRINE, CHLORHEXIDINE, ALPRAZOLAM. PAST MEDICAL HISTORY: As mentioned above. PAST SURGICAL HISTORY: Percutaneous angioplasty, colonoscopy with biopsy, cystoscopy, EGDs, laparoscopic resection of small intestine with anastomosis, esophagogastric fundoplasty, esophagoscopy, exploratory laparotomy, flexible sigmoidoscopy, laser trabeculoplasty, paraesophageal hernia repair, weakness of lower jaw, removal of deep support implant, cataract surgery bilateral, tonsillectomy, top teeth removed under anesthesia, total hysterectomy. MEDICATIONS: The patient is on magnesium 250 mg p.o. daily, vancomycin 125 mg p.o. q.i.d., estradiol 0.5 mg p.o. daily on Sundays, Tuesdays, and Saturdays, diltiazem ER 120 mg p.o. daily, hydrochlorothiazide 12.5 mg p.o. p.r.n., Ativan 0.5 mg p.o. t.i.d. p.r.n., simvastatin 20 mg p.o. at bedtime, Plavix 75 mg p.o. daily, Zofran 4 mg p.o. q. 6 hours p.r.n., dicyclomine 10 mg p.o. b.i.d. p.r.n., atenolol 75 mg in the morning and 50 mg in the evening, albuterol sulfate 2 puffs q. 4 hours p.r.n., colestipol 1 gram p.o. daily, Protonix 40 mg p.o. daily, nitroglycerin 0.4 mg sublingual p.r.n., buspirone 5 mg p.o. b.i.d., vitamin B12 500 mg p.o. daily, sucralfate 1 gram p.o. q.i.d., potassium 10 mEq p.o. daily, aspirin 81 mg p.o. daily, probiotic 1 capsule daily, Tylenol Arthritis 650 mg p.o. p.r.n. FAMILY HISTORY: Significant for brother has arthritis, kidney stones, heart disorder. Father has heart disorder and mother has arthritis and hypertension. SOCIAL HISTORY: , lives with . Former smoker, quit in 2014. Prior to that smoked half pack a day for 31 years. Alcohol occasional. No drug use. REVIEW OF SYSTEMS: As per HPI. Rest of review of systems is negative. PHYSICAL EXAMINATION: GENERAL: The patient is old and frail, not in acute distress. VITAL SIGNS: Temperature 36.4, pulse 60, respiratory rate 17, blood pressure 129/76, oxygen 98% on room air. HEENT: Pupils equal, round and reactive to light. Oral mucosa moist. NECK: No JVD or neck masses. CARDIOVASCULAR: S1 and S2 heard. Regular rate and rhythm. No murmur, no gallop. RESPIRATORY SYSTEM: Normal AP diameter. No accessory muscle use. No wheezing, no crackles. ABDOMEN: Soft, bowel sounds present, nontender, no distention. CENTRAL NERVOUS SYSTEM: Cranial nerves II-XII grossly intact, nonfocal. EXTREMITIES: No edema, no erythema. LABORATORY DATA: WBC 7.8, hemoglobin 13.6, hematocrit 40.5, platelets 278. APTT 23.8. Sodium 141, potassium 3.9, chloride 111, CO2 24, BUN 23, creatinine 0.7, serum glucose 89, calcium 8.7, total bilirubin 0.3, AST 14, ALT 15, alkaline phosphatase 105. Troponin I less than 0.015. Lipase 164. SARS-CoV-2 PCR negative. IMAGING DATA: Chest x-ray, no acute findings seen. EKG: Atrial paced rhythm with prolonged AV conduction at a rate of 62, no significant change was found. ASSESSMENT AND PLAN: A 74-year-old gentleman with chest pain. 1. Chest pain, history of coronary artery disease rule out acute coronary syndrome, initial workup was negative. Follow serial enzymes, echo. Keep her n.p.o. until seen by Cardiology. Monitor in the [employer] tele. 2. On going diarrhea. Clostridium difficile. Continue p.o. vancomycin.Contact precautions. 3. History of sick sinus syndrome, status post pacemaker. 4. History of hypertension. Continue her home medications, atenolol diltiazem. We will monitor the blood pressure. 5. Generalized anxiety disorder. Continue buspirone. 6. Hyperlipidemia. Continue statin. 7. History of coronary artery disease. Continue Plavix, aspirin, statin and beta chio. 8. Deep venous thrombosis prophylaxis. Sequential compression devices for now. DISPOSITION: Observation in med tele. Expect discharge home and follow up with family doctor. PT/OT prior to discharge. Social service to help with discharge planning. Job ID: [id number] [facility]
[2020-11-23] MEDS ORDERED: NITROGLYCERIN SL 0.4 MG/TAB TAB SL PRN ×2 (09:28→09:36)
[2020-11-23] MEDS ORDERED: NON-FORMULARY MEDICATION (Acetaminophen [Tylenol Arthritis Pain] 650 mg Tablet Extended Re PO PRN (09:36)
[2020-11-23] MEDS ORDERED: CBD OIL PO PRN (09:36)
[2020-11-23] MEDS ORDERED: ALBUTEROL HFA 8 GM INHALER INH PRN (09:36)
[2020-11-23] MEDS: SODIUM CHLORIDE 0.9% 1000ML 1,000 ML IV SCH ×2 (10:54→19:54)
[2020-11-23] MEDS: DICYCLOMINE HCL 10 MG CAP PO SCH ×2 (10:57→20:35)
[2020-11-23] MEDS: CHOLECALCIFEROL 1,000 UNITS 25 MCG TAB PO SCH (10:57)
[2020-11-23] MEDS: ATENOLOL 50 MG TABLET PO SCH ×2 (10:57→20:35)
[2020-11-23] MEDS: busPIRone 5 MG TAB PO SCH ×2 (10:57→20:35)
[2020-11-23] MEDS: PANTOprazole 40 MG TAB PO SCH (10:57)
--- NOTE | 2020-11-23 11:31 | Hospitalist Progress Note ---
Date of Service November 23, 2020 Assessment & Plan (1) C. difficile colitis: (2) Chest pain: Plan: ASSESSMENT AND PLAN: A 74-year-old gentleman with chest pain. 1. Chest pain, history of coronary artery disease s/p stent placement - acute coronary syndrome ruled out - troponin negative x 3 ekg negative echo unremarkable - continue usual cardiac meds - Dr. Waller consulted- appreciate the recommendations 2. C diff Colitis, 1st episode - not responding to Vanco x 5 days - CT abdomen/pelvis: colitis, GB stones, possible cholecystitis? - change Vanco to Fidaxomicin GI consult - GB US - clear liquids for now IV flujids 3. History of sick sinus syndrome, status post pacemaker. 4. History of hypertension.continue atenolol & diltiazem. 5. Generalized anxiety disorder. Continue buspirone. 6. Hyperlipidemia. Continue statin. 7. History of coronary artery disease. Continue Plavix, aspirin, statin and beta chio. 8. Deep venous thrombosis prophylaxis. Sequential compression devices for now. plan of care discussed with patient in detail and at length all questions answered she is understanding, agreeable, comfortable with the plan of care Admission and Anticipated Discharge Date Admission Date: November 23, 2020 Subjective ff up for epigastric pain, etc seen resting in bed, comfortable states she has been having persistent diarrhea despite being on Vanco po x 5 days reports epigastric pain radiating to the back yesterday no active chest pain, dyspnea, dizziness on exam denies other symptoms Review of Systems Review of Systems: all noted and negative except for above Physical Exam Physical Exam: General- oriented x 3, not in distress, speaks in sentences with no effort or accessory muscle use Head- atraumatic Eyes- PERRL, EOMI, anicteric ENT- oropharynx clear; dry oral mucosa Neck- supple, no JVD, no adenopathy, no thyromegaly; carotids +2/2, no bruits appreciated Lungs- clear to auscultation bilaterally, no rales/wheezes Heart- normal rate, regular rhythm; no murmur, no gallop, no rub appreciated Abdomen- normal bowel sounds, nondistended, soft, (+) tenderness- moderate on all quadrants, no masses or hepatosplenomegaly Extremities- no pretibial edema, no calf tenderness; peripheral pulses intact Neuro- alert, oriented x 3; CN 2-12 grossly intact; motor 5/5 bilaterally;sensation 100% on all extremities; no other gross focal neurologic deficits Skin- warm & dry Results & Data Results & Data ([facility]) Vital Signs (Past 12 Hours) Vital Signs Temp Pulse Pulse Resp BP BP Pulse Ox 11/23/20 09:32 36.6 C 61 18 146/77 H 97 11/23/20 09:30 36.6 C 61 18 146/77 H 97 11/23/20 09:11 36.6 C 67 20 126/67 97 11/23/20 08:00 69 25 H 139/69 97 11/23/20 07:30 61 22 11/23/20 07:00 60 17 98 11/23/20 06:30 60 14 97 11/23/20 06:02 62 15 98 11/23/20 05:30 63 17 129/76 98 11/23/20 05:01 59 L 14 150/89 H 98 11/23/20 04:30 63 16 143/67 H 98 11/23/20 04:00 64 17 117/62 97 11/23/20 03:30 64 16 119/69 96 11/23/20 03:02 61 21 11/23/20 02:30 60 20 129/81 11/23/20 02:00 64 18 122/72 98 11/23/20 01:18 36.4 C L 64 18 130/79 99 all noted and reviewed including below (1) Chest pain Chest pain type: other chest pain Qualified Code(s): R07.89 - Other chest pain
--- NOTE | 2020-11-23 11:46 | CT Scan Report ---
CT SCAN OF THE ABDOMEN AND PELVIS WITHOUT CONTRAST CLINICAL HISTORY: abdominal pain, c diff diarrhea COMPARISON STUDY: October 12, 2016 TECHNIQUE: CT scan of the abdomen and pelvis was performed from the lung bases to the proximal femurs . Images are reviewed in the axial, sagittal, and coronal planes. IV contrast was not administered fo r this examination. A dose lowering technique was utilized adhering to the principles of ALARA. CT DOSE: 491.17 mGy.cm FINDINGS: Lower chest: No acute abnormalities. Liver: The unenhanced liver is normal in size, contour, and attenuation. There is no intrahepatic sid iary ductal dilatation. Gallbladder: Is dilated, measuring 10.9 cm in craniocaudal dimension, fluid-filled with multiple gall stones within its dependent portion. Mild diffuse thickening of gallbladder wall and surrounding fat stranding is seen at its midportion (3/192) Spleen: Normal in size and attenuation. Pancreas: Unremarkable. Adrenal glands: Unremarkable. Kidneys: The unenhanced kidneys are normal in size without hydronephrosis. There is no contour deform ing renal mass lesion. No renal calculi are identified. Stable 2.4 cm right peripelvic cyst. Bowel: Bowel loops are nondilated. Postsurgical changes within stomach wall. Appendix is not well see n. There is possible colonic wall thickening and mild surrounding fat stranding within right hemiab domen at the region of distal ascending loop of large bowel and midportion of dilated gallbladder. Ev aluation is suboptimal due to lack of contrast. Diverticulosis of descending and sigmoid colon is see n without diverticulitis. Peritoneum: There is no intraperitoneal free air or abdominal ascites. Vasculature: Abdominal aorta is normal in caliber with scattered calcifications of its wall. Adenopathy: None. Pelvic viscera: Urinary bladder is fluid-filled. Uterus is of surgically absent. Skeletal structures: Mild diffuse osteopenia and degenerative changes of the spine. IMPRESSION: 1. Focal area of mild bowel wall thickening within distal ascending colon in close proximity to midp ortion of dilated gallbladder which is also showing possible thickening of its wall. There is associa debbie mild surrounding fat stranding within this region which could represent colitis. Focal wall thick ening of the gallbladder is most likely reactive however evaluation is suboptimal due to lack of IV c ontrast. Gallstones are seen. Differential diagnosis also include developing cholecystitis. 2. Stable right peripelvic cyst within right kidney. 3. Atherosclerosis. 4. The rest of findings as above. ACT 112: Negative or not required by law. The above report was generated using voice recognition software. It may contain grammatical, syntax o r spelling errors. Electronically signed by: Michelle Tom DO 11/23/2020 11:45 AM
[2020-11-23] MEDS ORDERED: VANCOMYCIN HCL 125 MG/2.5ML SOLN PO SCH (12:00)
[2020-11-23] MEDS ORDERED: RASPBERRY SYRUP 5 ML UDP PO SCH (12:00)
--- NOTE | 2020-11-23 12:15 | Electrocardiogram Report ---
Test Reason : Blood Pressure : / mmHG Vent. Rate : 062 BPM Atrial Rate : 062 BPM P-R Int : 244 ms QRS Dur : 084 ms QT Int : 410 ms P-R-T Axes : 011 031 017 degrees QTc Int : 416 ms Atrial-paced rhythm with prolonged AV conduction Abnormal ECG When compared with ECG of 09-MAY-2019 06:35, No significant change was found Confirmed by Jd Pisano ([id number]) on 11/23/2020 12:14:59 PM Referred By: REFERRED SELF Confirmed By:Clemente Pisano
--- NOTE | 2020-11-23 13:14 | Cardiology Consultation ---
Date of Consultation November 23, 2020 Assessment & Plan (1) Chest pain: (2) Ischemic heart disease, chronic: (3) C. difficile colitis: (4) S/P repair of paraesophageal hernia: Patient is a 74-year-old female with complex history as outlined in HPI. She has a history of longstanding stable ischemic heart disease with class II 3 angina pectoris. Recent difficulties with possible facial cellulitis versus acute inflammatory reaction treated with antibiotic therapy. Now complications of C. difficile colitis. Past several days marked episodes of frequent diarrhea and bowel incontinence. Yesterday following a profound episode developed substernal chest discomfort not relieved by sublingual nitroglycerin Currently asymptomatic from cardiac standpoint Cardiac enzymes EKGs and echocardiogram do not suggest acute ischemic event. Would continue prehospital cardiac regimen Treat underlying bowel issues Will follow as clinical course unfolds History of Present Illness Reason for Consultation: Chest pain Requesting Physician: Josh Galindo MD Attending Physician: Josh Galindo MD History of Present Illness Patient is a 74-year-old female with complex cardiac history as per recent outpatient record review 1. Chronic ischemic heart disease with class 2-3 angina 1. History of anterior wall MO at age 45, PTCA of the LAD at that time. 2. Abnormal stress testing in March 2004 with repeat catheterization on 04-09-04 demonstrating nonobstructive CAD with a total chronic occlusion of a 2nd diagonal branch and mild CAD elsewhere. 3. Cardiac catheterization in July 2016 demonstrating the chronic total occlusion of a diagonal branch with uiel-lo-llyy collaterals, 30% ostial RCA stenosis, and 30% mid RCA stenosis. LVEDP normal, 8 mmHg. 4. Presentation to [facility] May 2018 with unstable angina. Diagnostic cardiac catheterization with severe single-vessel coronary artery disease with an 80% mid RCA stenosis for which she underwent PCI, 3.0 x 18 mm drug-eluting stent implantation by Dr. Mclaughlin 5. Admission to [facility] in October 2018 with unstable angina, status post November 16, 2018 cardiac catheterization which demonstrated a severe, moderately calcified, 70% ostial right coronary artery stenosis with catheter dampening noted on engagement, status post successful PCI the ostial RCA with a single 3.0 x 12 Xience Eda drug-eluting stent. The previously placed mid RCA stent was noted to be patent. Chronic diagonal occlusion with collaterals. 6. Admission to [facility] in April 2019 with chest pain, abnormal pharmacological stress testing leading to cardiac catheterization performed on 05/09/2019 - patent RCA stents; known chronic diagonal branch vessel occlusion. 7. Sick sinus syndrome status post November 03, 2017 dual-chamber pacemaker implantation 8. Hypertension 9. GERD 10. Hiatal hernia status post laparoscopic paraesophageal hernia repair with complicated postoperative course Patient presents this admission with complicated recent history including r eaction to facial biopsy and treatment with 5-FU with possible cellulitis. Patient treated with antibiotic therapies complicated by vaginal yeast infection and C. difficile colitis. She presents now yesterday having had persistent worsening of diarrhea complaints including 2 episodes of marked incontinence. Last evening developed substernal chest discomfort which did not respond to 3 sublingual nitroglycerin. Patient was able to discern between angina or reflux complaints and presented to the emergency room for further evaluation. Currently without chest pain or discomfort. Cardiac enzymes without injury. EKG without acute ST segment changes. Echocardiogram on preliminary review reveals preserved LV systolic function and no wall motion abnormality She denies current fevers or chills. Feels GI complaints have been essentially overwhelming Allergies Allergy/AdvReac Type Severity Reaction Status Date / Time escitalopram Allergy Unknown itching Verified 08/01/19 05:01 latex Allergy Unknown RASH Verified 08/01/19 05:01 epinephrine AdvReac Intermediate HEART RACES Verified 08/01/19 05:01 chlorhexidine AdvReac Mild rash, Verified 08/01/19 05:01 itching alprazolam AdvReac Unknown HEADACHE Verified 08/01/19 05:01 Home Medications Medication Instructions Recorded Confirmed Type Cbd Oil 7.5 drp PO BID PRN 06/16/18 11/23/20 History acetaminophen 650 mg 650 mg PO DIRECTED PRN 06/16/18 11/23/20 History tablet,extended release (Tylenol Arthritis Pain) albuterol sulfate 90 mcg/actuation 2 puff INHALATION Q4 PRN 06/16/18 11/23/20 History aerosol inhaler (Proventil HFA) aspirin 81 mg tablet,delayed 81 mg PO HS 06/16/18 11/23/20 History release (Aspirin Low Dose) buspirone 5 mg tablet 5 mg PO BID 06/16/18 11/23/20 History cholecalciferol (vitamin D3) 50 2,000 unit PO QAM 06/16/18 11/23/20 History mcg (2,000 unit) capsule (Vitamin D3) dicyclomine 10 mg capsule 10 mg PO BID 06/16/18 11/23/20 History estradiol 0.5 mg tablet (Estrace) 1 dose PO SUTUTHSA 06/16/18 11/23/20 History hydrochlorothiazide 25 mg tablet 12.5 mg PO QAM PRN 06/16/18 11/23/20 History lactobacillus combination no.4 3 3 mmu PO QDD 06/16/18 11/23/20 History billion cell capsule (Probiotic) loperamide 2 mg capsule (Imodium 2 mg PO Q4H PRN 06/16/18 11/23/20 History A-D) lorazepam 0.5 mg tablet (Ativan) 0.5 mg PO TID PRN 06/16/18 11/23/20 History nitroglycerin 0.4 mg sublingual 0.4 mg SUBLINGUAL DIRECTED PRN 06/16/18 11/23/20 History tablet (Nitrostat) simvastatin 40 mg tablet (Zocor) 40 mg PO HS 06/16/18 11/23/20 History clopidogrel 75 mg tablet (Plavix) 75 mg PO HS 11/16/18 11/23/20 History pantoprazole 40 mg tablet,delayed 40 mg PO QAM 05/07/19 11/23/20 History release (Protonix) atenolol 50 mg tablet (Tenormin) 50 mg PO AMHS 08/01/19 11/23/20 History Cbd Gummies 2 tab PO UD 11/23/20 11/23/20 History Potassium 99mg 99 mg PO HS 11/23/20 11/23/20 History colestipol 1 gram tablet (Colestid) 1 g PO QDD 11/23/20 11/23/20 History cyanocobalamin (vitamin B-12) 0 mcg PO QDD 11/23/20 11/23/20 History 1,000 mcg tablet (Vitamin B-12) vancomycin 125 mg capsule 125 mg PO Q6H 11/23/20 11/23/20 History (Vancocin) Patient History Medical History (Updated 11/23/20 @ 13:27 by Harsh Waller MD) Anxiety Asthma CAD (coronary artery disease) per outpatient cardio note: History of anterior wall MO at age 45, PTCA of the LAD at that time. Abnormal stress testing in March 2004 with repeat catheterization on 04-09-04 demonstrating nonobstructive CAD with a total chronic occlusion of a 2nd diagonal branch and mild CAD elsewhere. Cardiac catheterization in July 2016 demonstrating the chronic total occlusion of a diagonal branch with [id number] collaterals, 30% ostial RCA stenosis, and 30% mid RCA stenosis. LVEDP normal, 8 mmHg. Presentation to [facility] May 2018 with unstable angina. Diagnostic cardiac catheterization with severe single-vessel coronary artery disease with an 80% mid RCA stenosis for which she underwent PCI, 3.0 x 18 mm drug-eluting stent implantation by Dr. Mclaughlin Admission to [facility] in October 2018 with unstable angina, status post November 16, 2018 cardiac catheterization which demonstrated a severe, moderately calcified, 70% ostial right coronary artery stenosis with catheter dampening noted on engagement, status post successful PCI the ostial RCA with a single 3.0 x 12 Xience Eda drug-eluting stent. The previously placed mid RCA stent was noted to be patent. Chronic diagonal occlusion with collaterals. Diverticulosis of colon GERD (gastroesophageal reflux disease) History of myocardial infarction (03/01/11) "anterior wall MO" HTN (hypertension) IBS (irritable bowel syndrome) Pacemaker SSS (sick sinus syndrome) Surgical History H/O exploratory laparotomy "02/05/15 Dr. Marques Rodriguez" History of cataract extraction History of hysterectomy History of Faisal fundoplication "02/05/[address] 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 occupation: 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 Other Information That Helps Us Care for You: No Feels Safe at Home: Yes Safety Concerns: Feels Safe At This Time Assistive Devices: Glasses Review of Systems Review of Systems: All systems reviewed & are unremarkable except as noted in HPI & below Physical Exam Constitutional: WD/WN, vitals as above Eyes: PERRL, conjunctivae normal, anicteric sclerae ENMT: external ear and nose normal, oropharynx normal Neck: trachea midline, no thyromegaly Respiratory: normal respiratory effort, lungs clear to auscultation Cardiovascular: Rate/Rhythm: regular rate and regular rhythm Heart Sounds: normal S1 and normal S2; no gallop and no murmur Palpation: normal PMI Vessels: normal carotid upstroke and radial pulses present; no JVD and no carotid bruit Extremities: no edema Gastrointestinal (Abdomen): normal bowel sounds, soft, nontender, no hepatosplenomegaly Musculoskeletal: no cyanosis or clubbing, extremities motor strength 5/5 Skin: no rashes, warm and dry Neurologic: PERRL, EOMI, accommodation nl, no face palsy, no dysarthria Psychiatric: A+Ox3, euthymic affect Results & Data ([facility]) Vital Signs (Past 12 Hours) Vital Signs Temp Pulse Pulse Resp BP BP Pulse Ox 11/23/20 09:32 36.6 C 61 18 146/77 H 97 11/23/20 09:30 36.6 C 61 18 146/77 H 97 11/23/20 09:11 36.6 C 67 20 126/67 97 11/23/20 08:00 69 25 H 139/69 97 11/23/20 07:30 61 22 11/23/20 07:00 60 17 98 11/23/20 06:30 60 14 97 11/23/20 06:02 62 15 98 11/23/20 05:30 63 17 129/76 98 11/23/20 05:01 59 L 14 150/89 H 98 11/23/20 04:30 63 16 143/67 H 98 11/23/20 04:00 64 17 117/62 97 11/23/20 03:30 64 16 119/69 96 11/23/20 03:02 61 21 11/23/20 02:30 60 20 129/81 11/23/20 02:00 64 18 122/72 98 11/23/20 01:18 36.4 C L 64 18 130/79 99 Laboratory Results Laboratory Results - last 24 hr 11/23/20 11/23/20 11/23/20 02:45 02:45 02:45 WBC 7.85 RBC 4.31 Hgb 13.6 Hct 40.5 MCV 94.0 MCH 31.6 MCHC 33.6 RDW Std Deviation 45.1 RDW Coeff of Nanette 13.1 Plt Count 278 MPV 9.8 Immature Gran % (Auto) 0.0 Neut % (Auto) 70.8 Lymph % (Auto) 21.9 [place] % (Auto) 6.4 Eos % (Auto) 0.8 Baso % (Auto) 0.1 Neut # (Auto) 5.56 Lymph # (Auto) 1.72 [place] # (Auto) 0.50 Eos # (Auto) 0.06 Baso # (Auto) 0.01 Immature Gran # (Auto) 0.00 APTT 23.8 PTT Ratio 0.9 Sodium 141 Potassium 3.9 Chloride 111 H Carbon Dioxide 24 Anion Gap 6.0 BUN 3 L Creatinine 0.72 Est Cr Clr Drug Dosing Not Reportable Est GFR ( Amer) 94.9 Est GFR (Non-Af Amer) 81.9 BUN/Creatinine Ratio 4.5 L Glucose 89 Calcium 8.7 Total Bilirubin 0.3 AST 14 L ALT 15 Alkaline Phosphatase 105 Troponin I < 0.015 Total Protein 6.9 Albumin 3.3 L Globulin 3.6 Albumin/Globulin Ratio 0.9 Lipase 164 COVID-19 Eval Order SARS-CoV-2 (PCR) 11/23/20 11/23/20 11/23/20 03:05 03:05 09:38 WBC RBC Hgb Hct MCV MCH MCHC RDW Std Deviation RDW Coeff of [place]ette Plt Count MPV Immature Gran % (Auto) Neut % (Auto) Lymph % (Auto) [place] % (Auto) Eos % (Auto) Baso % (Auto) Neut # (Auto) Lymph # (Auto) [place] # (Auto) Eos # (Auto) Baso # (Auto) Immature Gran # (Auto) APTT PTT Ratio Sodium Potassium Chloride Carbon Dioxide Anion Gap BUN Creatinine Est Cr Clr Drug Dosing Est GFR ( Amer) Est GFR (Non-Af Amer) BUN/Creatinine Ratio Glucose Calcium Total Bilirubin AST ALT Alkaline Phosphatase Troponin I < 0.015 Total Protein Albumin Globulin Albumin/Globulin Ratio Lipase COVID-19 Eval Order Covid19 at [facility] SARS-CoV-2 (PCR) NEGATIVE (1) Chest pain Chest pain type: other chest pain Qualified Code(s): R07.89 - Other chest pain
[2020-11-23] MEDS: FIDAXOMICIN 200 MG TAB PO SCH ×2 (13:45→20:44)
[2020-11-23] MEDS: LORazepam 0.5 MG TAB PO PRN ×2 (13:56→20:44)
[2020-11-23] MEDS: ONDANSETRON INJ 2 MG/ML 2 ML VIAL IV PRN (16:27)
--- NOTE | 2020-11-23 16:57 | Gastrointestinal Consultation ---
Date of Consultation November 23, 2020 Assessment & Plan (1) C. difficile colitis: appears to be responding well to the antibiotics overall. no sign of fever, renal failure, nor leukocytosis and no diarrhea in over 24 hours. Recs: complete 14 day total course of antibiotics, has received 5 days of po vancomycin and now on fidaxomicin if remains stable can advance diet tomorrow morning to low residue and then advance as tolerated IVFs, supportive care rest as per primary team Thank you for allowing me to participate in the care of this patient History of Present Illness Attending Physician: Josh Galindo MD History of Present Illness 74-year-old female with past medical history significant for hyperlipidemia, moderate asthma without complication, hypertension, peripheral vascular disease, sick sinus syndrome, status post pacemaker, history of CAD, history of irritable bowel syndrome, GERD, anemia due to vitamin B12 deficiency, vitamin D deficienc y, diverticulosis, GERD, rectocele, generalized osteoarthritis, degenerative disk disease, generalized anxiety disorder, history of cigarette smoking, who lives with her , presents with chest pain. GI consulted for persistent cdiff. She has been on po vancomycin for her first episode of cdiff, for now 5 days and had significant diarrhea up until admission, last episode was 12 pm on 11/22/20. No diarrhea since then. Antibiotics were changed to fidaxomicin BID by primary team today. She is afebrile and without leukocytosis currently. No nausea, tolerating clear liquid diet so far. She is tired. labs reviewed, afebrile. Allergies Allergy/AdvReac Type Severity Reaction Status Date / Time escitalopram Allergy Unknown itching Verified 08/01/19 05:01 latex Allergy Unknown RASH Verified 08/01/19 05:01 epinephrine AdvReac Intermediate HEART RACES Verified 08/01/19 05:01 chlorhexidine AdvReac Mild rash, Verified 08/01/19 05:01 itching alprazolam AdvReac Unknown HEADACHE Verified 08/01/19 05:01 Home Medications Medication Instructions Recorded Confirmed Type Cbd Oil 7.5 drp PO BID PRN 06/16/18 11/23/20 History acetaminophen 650 mg 650 mg PO DIRECTED PRN 06/16/18 11/23/20 History tablet,extended release (Tylenol Arthritis Pain) albuterol sulfate 90 mcg/actuation 2 puff INHALATION Q4 PRN 06/16/18 11/23/20 History aerosol inhaler (Proventil HFA) aspirin 81 mg tablet,delayed 81 mg PO HS 06/16/18 11/23/20 History release (Aspirin Low Dose) buspirone 5 mg tablet 5 mg PO BID 06/16/18 11/23/20 History cholecalciferol (vitamin D3) 50 2,000 unit PO QAM 06/16/18 11/23/20 History mcg (2,000 unit) capsule (Vitamin D3) dicyclomine 10 mg capsule 10 mg PO BID 06/16/18 11/23/20 History estradiol 0.5 mg tablet (Estrace) 1 dose PO SUTUTHSA 06/16/18 11/23/20 History hydrochlorothiazide 25 mg tablet 12.5 mg PO QAM PRN 06/16/18 11/23/20 History lactobacillus combination no.4 3 3 mmu PO QDD 06/16/18 11/23/20 History billion cell capsule (Probiotic) loperamide 2 mg capsule (Imodium 2 mg PO Q4H PRN 06/16/18 11/23/20 History A-D) lorazepam 0.5 mg tablet (Ativan) 0.5 mg PO TID PRN 06/16/18 11/23/20 History nitroglycerin 0.4 mg sublingual 0.4 mg SUBLINGUAL DIRECTED PRN 06/16/18 11/23/20 History tablet (Nitrostat) simvastatin 40 mg tablet (Zocor) 40 mg PO HS 06/16/18 11/23/20 History clopidogrel 75 mg tablet (Plavix) 75 mg PO HS 11/16/18 11/23/20 History pantoprazole 40 mg tablet,delayed 40 mg PO QAM 05/07/19 11/23/20 History release (Protonix) atenolol 50 mg tablet (Tenormin) 50 mg PO AMHS 08/01/19 11/23/20 History Cbd Gummies 2 tab PO UD 11/23/20 11/23/20 History Potassium 99mg 99 mg PO HS 11/23/20 11/23/20 History colestipol 1 gram tablet (Colestid) 1 g PO QDD 11/23/20 11/23/20 History cyanocobalamin (vitamin B-12) 0 mcg PO QDD 11/23/20 11/23/20 History 1,000 mcg tablet (Vitamin B-12) vancomycin 125 mg capsule 125 mg PO Q6H 11/23/20 11/23/20 History (Vancocin) Patient History Medical History Anxiety Asthma CAD (coronary artery disease) per outpatient cardio note: History of anterior wall IL at age 45, PTCA of the LAD at that time. Abnormal stress testing in March 2004 with repeat catheterization on 04-09-04 demonstrating nonobstructive CAD with a total chronic occlusion of a 2nd diagonal branch and mild CAD elsewhere. Cardiac catheterization in July 2016 demonstrating the chronic total occlusion of a diagonal branch with [id number] collaterals, 30% ostial RCA stenosis, and 30% mid RCA stenosis. LVEDP normal, 8 mmHg. Presentation to [facility] May 2018 with unstable angina. Diagnostic cardiac catheterization with severe single-vessel coronary artery disease with an 80% mid RCA stenosis for which she underwent PCI, 3.0 x 18 mm drug-eluting stent implantation by Dr. Mclaughlin Admission to [facility] in October 2018 with unstable angina, status post November 16, 2018 cardiac catheterization which demonstrated a severe, moderately calcified, 70% ostial right coronary artery stenosis with catheter dampening noted on engagement, status post successful PCI the ostial RCA with a single 3.0 x 12 Xience Eda drug-eluting stent. The previously placed mid RCA stent was noted to be patent. Chronic diagonal occlusion with collaterals. Diverticulosis of colon GERD (gastroesophageal reflux disease) History of myocardial infarction (03/01/11) "anterior wall IL" HTN (hypertension) IBS (irritable bowel syndrome) Pacemaker SSS (sick sinus syndrome) Surgical History H/O exploratory laparotomy "02/05/15 Dr. Marques Rodriguez" History of cataract extraction History of hysterectomy History of Faisal fundoplication "02/05/[address] Marques Rodriguez" History of PTCA History of tonsillectomy and adenoidectomy S/P repair of paraesophageal hernia "02/04/15 complicated by esophageal perforation" Family History Father Lung cancer Mother Hypertension Social History Smoking Status: Former smoker Tobacco Type: Cigarettes Second Hand Exposure: No; Hx Alcohol Use: Yes Alcohol type: hard liquor Hx Substance Use: No Preferred Language: Luxembourgish Communication Ability: Effective Medical Claims Assistant Required: No Beliefs That Will Affect Care: None marital status: Current Living Situation: Spouse Current Living Situation Comment: independent snf appartment current occupation: retired How many Children do You have: 2 Other Information That Helps Us Care for You: No Feels Safe at Home: Yes Safety Concerns: Feels Safe At This Time Assistive Devices: None Review of Systems Constitutional: no fever, no chills and no weight loss Eyes: as per Subjective / HPI Ear, Nose, Mouth, Throat: as per Subjective / HPI Respiratory: no dyspnea and no dyspnea on exertion Cardiovascular: no chest pain and no palpitations Gastrointestinal: as per Subjective / HPI Musculoskeletal: no joint pain and no swelling Integumentary: no rash and no lesions Neurologic: no numbness and no paresthesia Psychiatric: no depression and no anxiety Endocrine: no fatigue Hematologic / Lymphatic: no easy bleeding and no easy bruising Physical Exam Constitutional: WD/WN, vitals as above Eyes: EOM intact bilaterally Neck: normal visual inspection Respiratory: normal respiratory effort, lungs clear to auscultation Cardiovascular: RRR, no murmur, no edema Gastrointestinal (Abdomen): Inspection/Auscultation: abdomen normal to inspection; abdomen not distended Percussion/Palpation: + abdomen tender (mild tenderness diffuse) and abdomen soft; no hepatosplenomegaly Musculoskeletal: Extremities: no cyanosis Gait: normal gait Skin: no rashes, warm and dry Neurologic: moves all extremities Psychiatric: A+Ox3, euthymic affect Results & Data ([facility]) Vital Signs (Past 12 Hours) Vital Signs Temp Pulse Pulse Resp BP BP Pulse Ox 11/23/20 09:32 36.6 C 61 18 146/77 H 97 11/23/20 09:30 36.6 C 61 18 146/77 H 97 11/23/20 09:11 36.6 C 67 20 126/67 97 11/23/20 08:00 69 25 H 139/69 97 11/23/20 07:30 61 22 11/23/20 07:00 60 17 98 11/23/20 06:30 60 14 97 09/04/21 06:02 62 15 98 11/23/20 05:30 63 17 129/76 98 11/23/20 05:01 59 L 14 150/89 H 98 PG Care Time/CCT Total # of Minutes Spent Total Time Spent with Patient: Total time spent is greater than 50% in coordination of care (as documented) at patient's floor/unit and/or counseling patient: Coding Level of Care Code 20071 Initial Inpt Care Lvl 3 Diagnoses C. difficile colitis A04.72
[2020-11-23] MEDS: CYANOCOBALAMIN 500 MCG TABLET (VITAMIN B-12) PO SCH (19:35)
[2020-11-23] MEDS: CLOPIDOGREL BISULFATE 75 MG TAB PO SCH (20:34)
[2020-11-23] MEDS: ASPIRIN 81 MG ECTAB PO SCH (20:34)
[2020-11-23] MEDS: ADVANCED PROBIOTIC 1250 MG CAPSULE PO SCH (20:35)
[2020-11-23] MEDS: COLESTIPOL HCL 1 GM TAB PO SCH (20:35)
[2020-11-23] MEDS: SIMVASTATIN 40 MG TAB PO SCH (20:35)
[2020-11-23] MEDS ORDERED: POTASSIUM 99 MG PO SCH (21:00)
[2020-11-24] MEDS: SODIUM CHLORIDE 0.9% 1000ML 1,000 ML IV SCH ×2 (04:46→08:10)
[2020-11-24 05:31] LABS: Basophils # (auto) 0.03 K/uL (0-0.2); Basophils % (auto) 0.6 %; Eosinophils # (auto) 0.05 K/uL (0-0.5); Hematocrit (blood only) 37.3 % (37-47); Hemoglobin 12.4 g/dL (12.0-16.0); Immature Granulocytes # (auto) 0.01 K/uL (0.00-0.02); Immature Granulocytes % (auto) 0.2 %; Lymphocytes # (auto) 1.38 K/uL (1.2-3.4); Lymphocytes % (auto) 27.6 %; Mean Corpuscular Hemoglobin 30.6 pg (25-34); Mean Corpuscular Hgb Conc 33.2 g/dL (32-36); Mean Corpuscular Volume 92.1 fL (80-100); Mean Platelet Volume 9.1 fL (7.4-10.4); Monocytes # (auto) 0.45 K/uL (0.11-0.59); Neutrophils # (auto) 3.08 K/uL (1.4-6.5); Neutrophils % (auto) 61.6 %; Platelet Count 227 K/uL (130-400); RDW Coefficient of Variation 13.2 % (11.5-14.5); RDW Standard Deviation 44.2 fL (36.4-46.3); Red Blood Count 4.05 M/uL (4.2-5.4)
[2020-11-24 06:08] LABS: Calcium 8.2 mg/dl (8.5-10.1); Creatinine Clr Calc Pharmacy 68.2 ml/min; Est GFR (African American) 100.2 ml/min; Est GFR (Non-African American) 86.4 ml/min; Magnesium 2.1 mg/dl (1.8-2.4); Potassium 3.8 mmol/L (3.5-5.1)
--- NOTE | 2020-11-24 06:51 | Ultrasound Report ---
US gallbladder CLINICAL HISTORY: epigastric, back pain, r/o cholecystitis COMPARISON STUDY: CT of the abdomen and pelvis November 23, 2020. Right upper quadrant ultrasound 2010. FINDINGS: No hepatic lesions are identified. There is no biliary ductal dilatation. Common bile duct is at the upper limits of normal for caliber. There are gallstones and sludge within the gallbladder. Gallbladder wall thickness is at the upper limits of normal. Positive sonographic Jewell sign was el icited. There is no right hydronephrosis. Pancreas is unremarkable by sonography. IMPRESSION: Cholelithiasis with positive sonographic Jewell sign. These findings favor acute cholecy stitis. ACT 112: Negative or not required by law. Electronically signed by: Robbie Spencer M.D. 11/24/2020 6:50 AM
[2020-11-24] MEDS: busPIRone 5 MG TAB PO SCH ×2 (07:35→20:44)
[2020-11-24] MEDS: estradioL 1 MG TAB PO SCH (07:35)
[2020-11-24] MEDS: PANTOprazole 40 MG TAB PO SCH (07:35)
[2020-11-24] MEDS: ATENOLOL 50 MG TABLET PO SCH ×2 (07:35→20:45)
[2020-11-24] MEDS: CHOLECALCIFEROL 1,000 UNITS 25 MCG TAB PO SCH (07:35)
[2020-11-24] MEDS: DICYCLOMINE HCL 10 MG CAP PO SCH ×2 (07:35→20:42)
--- NOTE | 2020-11-24 07:40 | Electrocardiogram Report ---
Test Reason : Blood Pressure : / mmHG Vent. Rate : 061 BPM Atrial Rate : 064 BPM P-R Int : 232 ms QRS Dur : 084 ms QT Int : 412 ms P-R-T Axes : 000 058 049 degrees QTc Int : 414 ms Atrial-paced rhythm with prolonged AV conduction Abnormal ECG When compared with ECG of 23-NOV-2020 01:02, No significant change was found Confirmed by Jd Pisano ([id number]) on 11/24/2020 7:39:43 AM Referred By: REFERRED SELF Confirmed By:Clemente Pisano
[2020-11-24] MEDS: LORazepam 0.5 MG TAB PO PRN ×3 (07:42→20:46)
[2020-11-24] MEDS: FIDAXOMICIN 200 MG TAB PO SCH ×2 (07:42→20:40)
[2020-11-24 08:43] LABS: Alanine Aminotransferase 11 U/L (12-78); Albumin Level 2.7 gm/dl (3.4-5.0); Alkaline Phosphatase 93 U/L (45-117); Aspartate Aminotransferase 13 U/L (15-37); Bilirubin Direct < 0.1 mg/dl (0-0.2); Bilirubin,Total 0.4 mg/dl (0.2-1)
--- NOTE | 2020-11-24 11:05 | Surgery Consultation ---
Date of Consultation November 24, 2020 Assessment & Plan (1) C. difficile colitis: (2) Chest pain: (3) Cholecystitis with cholelithiasis: 74-year-old woman with extensive past medical history including stage III angina status post 2 drug-eluting stents on Plavix presents with C. difficile c olitis as well as a question of acute cholecystitis on imaging. Her chest and epigastric pain have completely resolved since admission to the hospital. Her last dose of Plavix was yesterday. She has an extensive surgical history including a serious complication from a laparoscopic hiatal hernia repair in the past, which has left her very reticent to undergo any surgical procedure unless absolutely necessary. She is currently on Dificid. I had a long discussion with her concerning potential cholecystitis as well as treatment plan for cholecystitis. She would like to avoid surgery if possible. We will add Zosyn to her antibiotic regimen and treat her conservatively for now. I discussed with her the potential need for laparoscopic, possible open cholecystectomy during this admission if she fails to improve or if she worsens. She understands this possibility. All her questions were answered. We will follow closely. We will stop her Plavix now in case of need for surgery in the next few days. History of Present Illness Reason for Consultation: Possible acute cholecystitis Attending Physician: Josh Galindo MD History of Present Illness 74-year-old woman presents with C. difficile colitis and diarrhea. She is C. difficile positive is now on Dificid. She noted severe pain in her chest radiating to her back and came to the emergency department. She has an extensive cardiac history, stage III angina, on Plavix. She has 2 drug-eluting stents, the last one placed in October 2018. She has been taking her Plavix up until today. She had been on vancomycin, but continued to have diarrhea, so she was switched to Dificid yesterday. Her EKG and troponins were normal, so she underwent CT scan of the abdomen and pelvis as well as right upper quadrant ultrasound, which demonstrates distention of the gallbladder, gallstones, as well as borderline wall thickening. There is a question of a positive Jewell sign on the ultrasound. Today she states that all of her chest and upper abdominal pain has resolved. Of note, she has a past surgical history of a laparoscopic hiatal hernia repair in 2014 in which she suffered a complication of either bleeding or perforation and required an immediate reoperation. She is very reticent to undergo any surgical procedure due to this experience that she had 5 years ago. Allergies Allergy/AdvReac Type Severity Reaction Status Date / Time escitalopram Allergy Unknown itching Verified 08/01/19 05:01 latex Allergy Unknown RASH Verified 08/01/19 05:01 epinephrine AdvReac Intermediate HEART RACES Verified 08/01/19 05:01 chlorhexidine AdvReac Mild rash, Verified 08/01/19 05:01 itching alprazolam AdvReac Unknown HEADACHE Verified 08/01/19 05:01 Home Medications Medication Instructions Recorded Confirmed Type Cbd Oil 7.5 drp PO BID PRN 06/16/18 11/23/20 History acetaminophen 650 mg 650 mg PO DIRECTED PRN 06/16/18 11/23/20 History tablet,extended release (Tylenol Arthritis Pain) albuterol sulfate 90 mcg/actuation 2 puff INHALATION Q4 PRN 06/16/18 11/23/20 History aerosol inhaler (Proventil HFA) aspirin 81 mg tablet,delayed 81 mg PO HS 06/16/18 11/23/20 History release (Aspirin Low Dose) buspirone 5 mg tablet 5 mg PO BID 06/16/18 11/23/20 History cholecalciferol (vitamin D3) 50 2,000 unit PO QAM 06/16/18 11/23/20 History mcg (2,000 unit) capsule (Vitamin D3) dicyclomine 10 mg capsule 10 mg PO BID 06/16/18 11/23/20 History estradiol 0.5 mg tablet (Estrace) 1 dose PO SUTUTHSA 06/16/18 11/23/20 History hydrochlorothiazide 25 mg tablet 12.5 mg PO QAM PRN 06/16/18 11/23/20 History lactobacillus combination no.4 3 3 mmu PO QDD 06/16/18 11/23/20 History billion cell capsule (Probiotic) loperamide 2 mg capsule (Imodium 2 mg PO Q4H PRN 06/16/18 11/23/20 History A-D) lorazepam 0.5 mg tablet (Ativan) 0.5 mg PO TID PRN 06/16/18 11/23/20 History nitroglycerin 0.4 mg sublingual 0.4 mg SUBLINGUAL DIRECTED PRN 06/16/18 11/23/20 History tablet (Nitrostat) simvastatin 40 mg tablet (Zocor) 40 mg PO HS 06/16/18 11/23/20 History clopidogrel 75 mg tablet (Plavix) 75 mg PO HS 11/16/18 11/23/20 History pantoprazole 40 mg tablet,delayed 40 mg PO QAM 05/07/19 11/23/20 History release (Protonix) atenolol 50 mg tablet (Tenormin) 50 mg PO AMHS 08/01/19 11/23/20 History Cbd Gummies 2 tab PO UD 11/23/20 11/23/20 History Potassium 99mg 99 mg PO HS 11/23/20 11/23/20 History colestipol 1 gram tablet (Colestid) 1 g PO QDD 11/23/20 11/23/20 History cyanocobalamin (vitamin B-12) 0 mcg PO QDD 11/23/20 11/23/20 History 1,000 mcg tablet (Vitamin B-12) vancomycin 125 mg capsule 125 mg PO Q6H 11/23/20 11/23/20 History (Vancocin) Patient History Medical History (Updated 11/24/20 @ 11:12 by Conner Chow MD) Anxiety Asthma CAD (coronary artery disease) per outpatient cardio note: History of anterior wall [place] at age 45, PTCA of the LAD at that time. Abnormal stress testing in March 2004 with repeat catheterization on 04-09-04 demonstrating nonobstructive CAD with a total chronic occlusion of a 2nd diagonal branch and mild CAD elsewhere. Cardiac catheterization in July 2016 demonstrating the chronic total occlusion of a diagonal branch with [id number] collaterals, 30% ostial RCA stenosis, and 30% mid RCA stenosis. LVEDP normal, 8 mmHg. Presentation to [facility] May 2018 with unstable angina. Diagnostic cardiac catheterization with severe single-vessel coronary artery disease with an 80% mid RCA stenosis for which she underwent PCI, 3.0 x 18 mm drug-eluting stent implantation by Dr. Mclaughlin Admission to [facility] in October 2018 with unstable angina, status post November 16, 2018 cardiac catheterization which demonstrated a severe, moderately calcified, 70% ostial right coronary artery stenosis with catheter dampening noted on engagement, status post successful PCI the ostial RCA with a single 3.0 x 12 Xience Eda drug-eluting stent. The previously placed mid RCA stent was noted to be patent. Chronic diagonal occlusion with collaterals. Diverticulosis of colon GERD (gastroesophageal reflux disease) History of myocardial infarction (03/01/11) "anterior wall NJ" HTN (hypertension) IBS (irritable bowel syndrome) Pacemaker SSS (sick sinus syndrome) Surgical History H/O exploratory laparotomy "02/05/15 Dr. Marques Rodriguez" History of cataract extraction History of hysterectomy History of Faisal fundoplication "02/05/[address] Marques Rodriguez" History of PTCA History of tonsillectomy and adenoidectomy S/P repair of paraesophageal hernia "02/04/15 complicated by esophageal perforation" Family History Father Lung cancer Mother Hypertension Social History Smoking Status: Former smoker Tobacco Type: Cigarettes Second Hand Exposure: No; Hx Alcohol Use: Yes Alcohol type: hard liquor Hx Substance Use: No Preferred Language: Chinese Communication Ability: Effective Bond Runner Required: No Beliefs That Will Affect Care: None marital status: Current Living Situation: Spouse Current Living Situation Comment: independent long term appartment current occupation: retired How many Children do You have: 2 Other Information That Helps Us Care for You: No Feels Safe at Home: Yes Safety Concerns: Feels Safe At This Time Assistive Devices: None Review of Systems Review of Systems: All systems reviewed & are unremarkable except as noted in Subjective Physical Exam Constitutional: WD/WN, vitals as above Eyes: PERRL, conjunctivae normal, anicteric sclerae Neck: trachea midline, no thyromegaly Respiratory: normal respiratory effort, lungs clear to auscultation Cardiovascular: RRR, no murmur, no edema Gastrointestinal (Abdomen): Inspection/Auscultation: abdomen normal to inspection; abdomen not distended Percussion/Palpation: + abdomen tender (Mild tenderness right lower/left lower quadrant) and abdomen soft; no guarding and abdomen not rigid Musculoskeletal: Extremities: no cyanosis and no clubbing Skin: no rashes, warm and dry Psychiatric: A+Ox3, euthymic affect Lymphatic: no cervical lymphadenopathy Results & Data ([facility]) Vital Signs (Past 12 Hours) Vital Signs Temp Pulse Pulse Resp BP Pulse Ox 11/24/20 10:13 63 11/24/20 07:31 36.6 C 73 20 144/80 H 94 11/24/20 04:29 60 11/23/20 23:57 36.4 C L 62 18 121/65 97 Laboratory Results 11/24/20 11/24/20 11/24/20 Range/Units 06:17 05:17 05:17 WBC 5.00 (4.8-10.8) K/uL RBC 4.05 L (4.2-5.4) M/uL Hgb 12.4 (12.0-16.0) g/dL Hct 37.3 (37-47) % MCV 92.1 (80-100) fL MCH 30.6 (25-34) pg MCHC 33.2 (32-36) g/dL RDW Std Deviation 44.2 (36.4-46.3) fL RDW Coeff of Nanette 13.2 (11.5-14.5) % Plt Count 227 (130-400) K/uL MPV 9.1 (7.4-10.4) fL Immature Gran % (Auto) 0.2 % Neut % (Auto) 61.6 % Lymph % (Auto) 27.6 % [place] % (Auto) 9.0 % Eos % (Auto) 1.0 % Baso % (Auto) 0.6 % Neut # (Auto) 3.08 (1.4-6.5) K/uL Lymph # (Auto) 1.38 (1.2-3.4) K/uL [place] # (Auto) 0.45 (0.11-0.59) K/uL Eos # (Auto) 0.05 (0-0.5) K/uL Baso # (Auto) 0.03 (0-0.2) K/uL Immature Gran # (Auto) 0.01 (0.00-0.02) K/uL Sodium 143 (136-145) mmol/L Potassium 3.8 (3.5-5.1) mmol/L Chloride 115 H (98-107) mmol/L Carbon Dioxide 27 (21-32) mmol/L Anion Gap 1.0 L (3-11) BUN 3 L (7-18) mg/dl Creatinine 0.66 (0.6-1.2) mg/dl Est Cr Clr Drug Dosing 68.2 ml/min Est GFR ( Amer) 100.2 ml/min Est GFR (Non-Af Amer) 86.4 ml/min BUN/Creatinine Ratio 5.0 L (10-20) Glucose 85 (70-99) mg/dl Calcium 8.2 L (8.5-10.1) mg/dl Magnesium 2.1 (1.8-2.4) mg/dl Total Bilirubin 0.4 (0.2-1) mg/dl Direct Bilirubin < 0.1 (0-0.2) mg/dl AST 13 L (15-37) U/L ALT 11 L (12-78) U/L Alkaline Phosphatase 93 (45-117) U/L Troponin I (0-0.045) ng/ml Total Protein 6.0 L (6.4-8.2) gm/dl Albumin 2.7 L (3.4-5.0) gm/dl 11/23/20 Range/Units 13:15 WBC (4.8-10.8) K/uL RBC (4.2-5.4) M/uL Hgb (12.0-16.0) g/dL Hct (37-47) % MCV (80-100) fL MCH (25-34) pg MCHC (32-36) g/dL RDW Std Deviation (36.4-46.3) fL RDW Coeff of Nanette (11.5-14.5) % Plt Count (130-400) K/uL MPV (7.4-10.4) fL Immature Gran % (Auto) % Neut % (Auto) % Lymph % (Auto) % [place] % (Auto) % Eos % (Auto) % Baso % (Auto) % Neut # (Auto) (1.4-6.5) K/uL Lymph # (Auto) (1.2-3.4) K/uL [place] # (Auto) (0.11-0.59) K/uL Eos # (Auto) (0-0.5) K/uL Baso # (Auto) (0-0.2) K/uL Immature Gran # (Auto) (0.00-0.02) K/uL Sodium (136-145) mmol/L Potassium (3.5-5.1) mmol/L Chloride (98-107) mmol/L Carbon Dioxide (21-32) mmol/L Anion Gap (3-11) BUN (7-18) mg/dl Creatinine (0.6-1.2) mg/dl Est Cr Clr Drug Dosing ml/min Est GFR ( Amer) ml/min Est GFR (Non-Af Amer) ml/min BUN/Creatinine Ratio (10-20) Glucose (70-99) mg/dl Calcium (8.5-10.1) mg/dl Magnesium (1.8-2.4) mg/dl Total Bilirubin (0.2-1) mg/dl Direct Bilirubin (0-0.2) mg/dl AST (15-37) U/L ALT (12-78) U/L Alkaline Phosphatase (45-117) U/L Troponin I < 0.015 (0-0.045) ng/ml Total Protein (6.4-8.2) gm/dl Albumin (3.4-5.0) gm/dl Diagnostic Findings US gallbladder CLINICAL HISTORY: epigastric, back pain, r/o cholecystitis COMPARISON STUDY: CT of the abdomen and pelvis November 23, 2020. Right upper quadrant ultrasound March 02, 2011. FINDINGS: No hepatic lesions are identified. There is no biliary ductal dilatation. Common bile duct is at the upper limits of normal for caliber. There are gallstones and sludge within the gallbladder. Gallbladder wall thickness is at the upper limits of normal. Positive sonographic Jewell sign was elicited. There is no right hydronephrosis. Pancreas is unremarkable by sonography. IMPRESSION: Cholelithiasis with positive sonographic Jewell sign. These findings favor acute cholecystitis. CT SCAN OF THE ABDOMEN AND PELVIS WITHOUT CONTRAST CLINICAL HISTORY: abdominal pain, c diff diarrhea COMPARISON STUDY: October 12, 2016 TECHNIQUE: CT scan of the abdomen and pelvis was performed from the lung bases to the proximal femurs. Images are reviewed in the axial, sagittal, and coronal planes. IV contrast was not administered for this examination. A dose lowering technique was utilized adhering to the principles of ALARA. CT DOSE: 491.17 mGy.cm FINDINGS: Lower chest: No acute abnormalities. Liver: The unenhanced liver is normal in size, contour, and attenuation. There is no intrahepatic biliary ductal dilatation. Gallbladder: Is dilated, measuring 10.9 cm in craniocaudal dimension, fluid- filled with multiple gallstones within its dependent portion. Mild diffuse thickening of gallbladder wall and surrounding fat stranding is seen at its midportion (3/192) Spleen: Normal in size and attenuation. Pancreas: Unremarkable. Adrenal glands: Unremarkable. Kidneys: The unenhanced kidneys are normal in size without hydronephrosis. There is no contour deforming renal mass lesion. No renal calculi are identified. Stable 2.4 cm right peripelvic cyst. Bowel: Bowel loops are nondilated. Postsurgical changes within stomach wall. Appendix is not well seen. There is possible colonic wall thickening and mild surrounding fat stranding within right hemiabdomen at the region of distal ascending loop of large bowel and midportion of dilated gallbladder. Evaluation is suboptimal due to lack of contrast. Diverticulosis of descending and sigmoid colon is seen without diverticulitis. Peritoneum: There is no intraperitoneal free air or abdominal ascites. Vasculature: Abdominal aorta is normal in caliber with scattered calcifications of its wall. Adenopathy: None. Pelvic viscera: Urinary bladder is fluid-filled. Uterus is of surgically absent. Skeletal structures: Mild diffuse osteopenia and degenerative changes of the spine. IMPRESSION: 1. Focal area of mild bowel wall thickening within distal ascending colon in close proximity to midportion of dilated gallbladder which is also showing possible thickening of its wall. There is associated mild surrounding fat stranding within this region which could represent colitis. Focal wall thickeni ng of the gallbladder is most likely reactive however evaluation is suboptimal due to lack of IV contrast. Gallstones are seen. Differential diagnosis also include developing cholecystitis. 2. Stable right peripelvic cyst within right kidney. 3. Atherosclerosis. 4. The rest of findings as above. (1) Chest pain Chest pain type: unspecified Qualified Code(s): R07.9 - Chest pain, unspecified
--- NOTE | 2020-11-24 12:51 | Cardiology Progress Note ---
Date of Service November 24, 2020 Assessment & Plan (1) Chest pain: (2) Ischemic heart disease, chronic: (3) C. difficile colitis: (4) S/P repair of paraesophageal hernia: Plan: Patient is a 74-year-old female with complex history as outlined in HPI. She has a history of longstanding stable ischemic heart disease with class II 3 angina pectoris. Recent difficulties with possible facial cellulitis versus acute inflammatory reaction treated with antibiotic therapy. Now complications of C. difficile colitis. Past several days marked episodes of frequent diarrhea and bowel incontinence. Yesterday following a profound episode developed substernal chest discomfort not relieved by sublingual nitroglycerin Currently asymptomatic from cardiac standpoint Cardiac enzymes EKGs and echocardiogram do not suggest acute ischemic event. Evaluation reveals cholelithiasis possible cholecystitis as contributing to current complaints Plan: Agree with holding clopidogrel continue other medications Admission and Anticipated Discharge Date Admission Date: November 24, 2020 Subjective Patient seen and examined, chart, medications, telemetry reviewed. Results of recent testing noted including findings of cholelithiasis possible cholecystitis. No further chest pains or discomfort. Diarrhea and loose bowel months have improved. No fevers or chills. Review of Systems Review of Systems: All systems reviewed & are unremarkable except as noted in Subjective Physical Exam Constitutional: WD/WN, vitals as above Eyes: PERRL, conjunctivae normal, anicteric sclerae ENMT: external ear and nose normal, oropharynx normal Neck: trachea midline, no thyromegaly Respiratory: normal respiratory effort, lungs clear to auscultation Cardiovascular: Rate/Rhythm: regular rate and regular rhythm Heart Sounds: normal S1 and normal S2; no gallop and no murmur Palpation: normal PMI Vessels: normal carotid upstroke and radial pulses present; no JVD and no carotid bruit Extremities: no edema Musculoskeletal: no cyanosis or clubbing, extremities motor strength 5/5 Skin: no rashes, warm and dry Neurologic: PERRL, EOMI, accommodation nl, no face palsy, no dysarthria Psychiatric: A+Ox3, euthymic affect Results & Data ([facility]) Vital Signs (Past 12 Hours) Vital Signs Temp Pulse Pulse Resp BP Pulse Ox 11/24/20 11:51 36.5 C 86 16 149/84 H 99 11/24/20 10:13 63 11/24/20 07:31 36.6 C 73 20 144/80 H 94 11/24/20 04:29 60 Laboratory Results Laboratory Results - last 24 hr 11/23/20 11/24/20 11/24/20 13:15 05:17 05:17 WBC 5.00 RBC 4.05 L Hgb 12.4 Hct 37.3 MCV 92.1 MCH 30.6 MCHC 33.2 RDW Std Deviation 44.2 RDW Coeff of Nanette 13.2 Plt Count 227 MPV 9.1 Immature Gran % (Auto) 0.2 Neut % (Auto) 61.6 Lymph % (Auto) 27.6 [place] % (Auto) 9.0 Eos % (Auto) 1.0 Baso % (Auto) 0.6 Neut # (Auto) 3.08 Lymph # (Auto) 1.38 [place] # (Auto) 0.45 Eos # (Auto) 0.05 Baso # (Auto) 0.03 Immature Gran # (Auto) 0.01 Sodium 143 Potassium 3.8 Chloride 115 H Carbon Dioxide 27 Anion Gap 1.0 L BUN 3 L Creatinine 0.66 Est Cr Clr Drug Dosing 68.2 Est GFR ( Amer) 100.2 Est GFR (Non-Af Amer) 86.4 BUN/Creatinine Ratio 5.0 L Glucose 85 Calcium 8.2 L Magnesium 2.1 Total Bilirubin Direct Bilirubin AST ALT Alkaline Phosphatase Troponin I < 0.015 Total Protein Albumin 11/24/20 06:17 WBC RBC Hgb Hct MCV MCH MCHC RDW Std Deviation RDW Coeff of Nanette Plt Count MPV Immature Gran % (Auto) Neut % (Auto) Lymph % (Auto) [place] % (Auto) Eos % (Auto) Baso % (Auto) Neut # (Auto) Lymph # (Auto) [place] # (Auto) Eos # (Auto) Baso # (Auto) Immature Gran # (Auto) Sodium Potassium Chloride Carbon Dioxide Anion Gap BUN Creatinine Est Cr Clr Drug Dosing Est GFR ( Amer) Est GFR (Non-Af Amer) BUN/Creatinine Ratio Glucose Calcium Magnesium Total Bilirubin 0.4 Direct Bilirubin < 0.1 AST 13 L ALT 11 L Alkaline Phosphatase 93 Troponin I Total Protein 6.0 L Albumin 2.7 L (1) Chest pain Chest pain type: other chest pain Qualified Code(s): R07.89 - Other chest pain
[2020-11-24] MEDS ORDERED: BENZOCAINE 20% (ORAJEL) 11.9 GM TUBE MT PRN (14:22)
[2020-11-24] MEDS ORDERED: MEROPENEM CONSULT ACITVE PRN (14:28)
[2020-11-24] MEDS: ACETAMINOPHEN 325 MG TAB PO PRN ×2 (15:32→20:41)
[2020-11-24] MEDS: MEROPENEM 500 MG in SYRINGE 0 ML IV SCH ×2 (15:32→20:53)
[2020-11-24] MEDS: COLESTIPOL HCL 1 GM TAB PO SCH (15:34)
[2020-11-24] MEDS: ADVANCED PROBIOTIC 1250 MG CAPSULE PO SCH (15:34)
[2020-11-24] MEDS: CYANOCOBALAMIN 500 MCG TABLET (VITAMIN B-12) PO SCH (15:34)
--- NOTE | 2020-11-24 15:50 | Hospitalist Progress Note ---
Date of Service November 24, 2020 Assessment & Plan (1) C. difficile colitis: (2) Chest pain: Plan: ASSESSMENT AND PLAN: A 74-year-old gentleman with chest pain. 1. Chest pain, history of coronary artery disease s/p stent placement - acute coronary syndrome ruled out - troponin negative x 3 ekg negative echo unremarkable - continue usual cardiac meds - Dr. Waller consulted- appreciate the recommendations 2. C diff Colitis, 1st episode - not responding to Vanco x 5 days - CT abdomen/pelvis: colitis, GB stones, possible cholecystitis? - changed Vanco to Fidaxomicin- day GI consulted Dr. Cerrato - GB US: (+) cholecystitis, cholelithiasis - advance diet to soft Acute Cholecystitis - LFTs within normal limits - discussed with Dr. Chow- Gen Surg hold Plavix start antibiotics-> Imipenem - monitor for the next 24-48 hrs, if without improvement, may need Sugery 3. History of sick sinus syndrome, status post pacemaker. 4. History of hypertension.continue atenolol & diltiazem. 5. Generalized anxiety disorder. Continue buspirone. 6. Hyperlipidemia. Continue statin. 7. History of coronary artery disease. HOLD Plavix, Continue aspirin, statin and beta chio. 8. Deep venous thrombosis prophylaxis. Sequential compression devices for now. Ambulates frequently. plan of care discussed with patient in detail and at length all questions answered she is understanding, agreeable, comfortable with the plan of care Admission and Anticipated Discharge Date Admission Date: November 24, 2020 Subjective ff up for c diff colitis, etc seen resting in bed, sitting up appears brighter, stronger states she feels better today overall does report RUQ and epigastric pain no diarrhea since yesterday no nausea no chills no chest pain, dyspnea, palpitations, dizziness denies other symptoms Review of Systems Review of Systems: all noted and negative except for above Physical Exam Physical Exam: General- oriented x 3, not in distress, speaks in sentences with no effort or accessory muscle use Eyes- anicteric Neck- no JVD Lungs- clear breath sounds bilaterally, no rales/wheezes Heart- normal rate, regular rhythm; no murmurs Abdomen- normal bowel sounds, nondistended, soft, (+) RUQ tenderness Extremities- mild pedal edema, no calf tenderness Neuro- alert, oriented x 3; no gross focal neurologic deficits Skin- warm & dry Results & Data Results & Data ([facility]) Vital Signs (Past 12 Hours) Vital Signs Temp Pulse Pulse Resp BP Pulse Ox 11/24/20 11:51 36.5 C 86 16 149/84 H 99 11/24/20 10:13 63 11/24/20 07:31 36.6 C 73 20 144/80 H 94 11/24/20 04:29 60 all noted and reviewed including below (1) Chest pain Chest pain type: other chest pain Qualified Code(s): R07.89 - Other chest pain
[2020-11-24] MEDS: SIMVASTATIN 40 MG TAB PO SCH (20:42)
[2020-11-24] MEDS: ASPIRIN 81 MG ECTAB PO SCH (20:46)
[2020-11-25] MEDS: MEROPENEM 500 MG in SYRINGE 0 ML IV SCH ×2 (03:10→09:35)
[2020-11-25] MEDS: ACETAMINOPHEN 325 MG TAB PO PRN (03:34)
[2020-11-25] MEDS ORDERED: traMADol HCL 50 MG TABLET PO STA (05:52)
[2020-11-25 06:06] LABS: Basophils # (auto) 0.02 K/uL (0-0.2); Basophils % (auto) 0.5 %; Eosinophils # (auto) 0.05 K/uL (0-0.5); Eosinophils % (auto) 1.4 %; Hematocrit (blood only) 35.6 % (37-47); Immature Granulocytes # (auto) 0.01 K/uL (0.00-0.02); Immature Granulocytes % (auto) 0.3 %; Lymphocytes # (auto) 1.18 K/uL (1.2-3.4); Lymphocytes % (auto) 32.2 %; Mean Corpuscular Hemoglobin 30.8 pg (25-34); Mean Corpuscular Hgb Conc 33.7 g/dL (32-36); Mean Corpuscular Volume 91.5 fL (80-100); Mean Platelet Volume 9.5 fL (7.4-10.4); Monocytes # (auto) 0.37 K/uL (0.11-0.59); Monocytes % (auto) 10.1 %; Neutrophils # (auto) 2.03 K/uL (1.4-6.5); Neutrophils % (auto) 55.5 %; Platelet Count 223 K/uL (130-400); RDW Coefficient of Variation 13.2 % (11.5-14.5); RDW Standard Deviation 43.9 fL (36.4-46.3); Red Blood Count 3.89 M/uL (4.2-5.4); White Blood Count 3.66 K/uL (4.8-10.8)
[2020-11-25 06:34] LABS: Albumin Level 2.7 gm/dl (3.4-5.0); BUN Creatinine Ratio 6.3 (10-20); Bilirubin Direct 0.1 mg/dl (0-0.2); Calcium 8.2 mg/dl (8.5-10.1); Creatinine Clr Calc Pharmacy 68.2 ml/min; Est GFR (African American) 100.2 ml/min; Est GFR (Non-African American) 86.4 ml/min; Potassium 3.5 mmol/L (3.5-5.1)
[2020-11-25 06:37] LABS: Bilirubin,Total 0.4 mg/dl (0.2-1); Total Protein 5.8 gm/dl (6.4-8.2)
[2020-11-25] MEDS: ATENOLOL 50 MG TABLET PO SCH ×2 (08:39→20:42)
[2020-11-25] MEDS: DICYCLOMINE HCL 10 MG CAP PO SCH ×2 (08:39→20:42)
[2020-11-25] MEDS: CHOLECALCIFEROL 1,000 UNITS 25 MCG TAB PO SCH (08:39)
[2020-11-25] MEDS: PANTOprazole 40 MG TAB PO SCH (08:39)
[2020-11-25] MEDS: busPIRone 5 MG TAB PO SCH ×2 (08:39→20:41)
[2020-11-25] MEDS: FIDAXOMICIN 200 MG TAB PO SCH ×2 (09:35→20:42)
--- NOTE | 2020-11-25 11:41 | Progress Note ---
Date of Service November 25, 2020 Assessment & Plan (1) C. difficile colitis: (2) Chest pain: Chest pain type: unspecified Qualified Code(s): R07.9 - Chest pain, unspecified (3) Cholecystitis with cholelithiasis: Plan: 74-year-old woman with extensive past medical history including stage III angina status post 2 drug-eluting stents on Plavix presents with C. difficile colitis as well as a question of acute cholecystitis on imaging. Her chest and epigastric pain have completely resolved since admission to the hospital. Her last dose of Plavix was yesterday. She has an extensive surgical history including a serious complication from a laparoscopic hiatal hernia repair in the past, which has left her very reticent to undergo any surgical procedure unless absolutely necessary. She is currently on Dificid. I had a long discussion with her concerning potential cholecystitis as well as treatment plan for cholecystitis. She would like to avoid surgery if possible. We will add Zosyn to her antibiotic regimen and treat her conservatively for now. I discussed with her the potential need for laparoscopic, possible open cholecystectomy during this admission if she fails to improve or if she worsens. She understands this possibility. All her questions were answered. We will follow closely. We will stop her Plavix now in case of need for surgery in the next few days. 11/25/2020 11:44AM F/U cholelithiasis with cholecystitis, C- diff doing better, less abdominal pain, no nausea, no vomiting, no diarrhea, no fever, continue treatment, repeat labs in morning, will F/U Admission and Anticipated Discharge Date Admission Date: November 24, 2020 Subjective F/U cholelithiasis and C-diff, pt feels better, no significant abdominal pain, no nausea, no vomiting, no diarrhea, no fever, Physical Exam Constitutional: WD/WN, vitals as above Eyes: PERRL, conjunctivae normal, anicteric sclerae Neck: trachea midline, no thyromegaly Respiratory: normal respiratory effort, lungs clear to auscultation Cardiovascular: RRR, no murmur, no edema Gastrointestinal (Abdomen): soft, mild tenderness at RUQ, no rebound pain, no distend, BS + Musculoskeletal: no cyanosis or clubbing, extremities motor strength 5/5 Neurologic: patellar DTR's 2+ bilat, sensation intact Psychiatric: A+Ox3, euthymic affect Results & Data ([facility]) Vital Signs (Past 12 Hours) Vital Signs Temp Pulse Pulse Pulse Resp BP Pulse Ox 11/25/20 08:03 36.6 C 87 18 151/83 H 96 11/25/20 05:42 70 146/72 H 11/25/20 03:25 36.5 C 66 16 151/90 H 97 11/25/20 01:53 60 Laboratory Results Abnormal lab results 11/25/20 11/25/20 Range/Units 05:18 05:18 WBC 3.66 L (4.8-10.8) K/uL RBC 3.89 L (4.2-5.4) M/uL Hct 35.6 L (37-47) % Lymph # (Auto) 1.18 L (1.2-3.4) K/uL Chloride 112 H (98-107) mmol/L BUN 4 L (7-18) mg/dl BUN/Creatinine Ratio 6.3 L (10-20) Calcium 8.2 L (8.5-10.1) mg/dl AST 13 L (15-37) U/L Total Protein 5.8 L (6.4-8.2) gm/dl Albumin 2.7 L (3.4-5.0) gm/dl Diagnostic Findings US gallbladder CLINICAL HISTORY: epigastric, back pain, r/o cholecystitis COMPARISON STUDY: CT of the abdomen and pelvis November 23, 2020. Right upper quadrant ultrasound March 02, 2011. FINDINGS: No hepatic lesions are identified. There is no biliary ductal dilatation. Common bile duct is at the upper limits of normal for caliber. There are gallstones and sludge within the gallbladder. Gallbladder wall thickness is at the upper limits of normal. Positive sonographic Jewell sign was elicited. There is no right hydronephrosis. Pancreas is unremarkable by sonography. IMPRESSION: Cholelithiasis with positive sonographic Jewell sign. These findings favor acute cholecystitis.
--- NOTE | 2020-11-25 12:16 | Hospitalist Progress Note ---
Date of Service November 25, 2020 Assessment & Plan (1) C. difficile colitis: (2) Chest pain: Plan: ASSESSMENT AND PLAN: A 74-year-old gentleman with chest pain. 1. Chest pain, history of coronary artery disease s/p stent placement - acute coronary syndrome ruled out - troponin negative x 3 ekg negative echo unremarkable - continue usual cardiac meds - Dr. Waller consulted- appreciate the recommendations 2. C diff Colitis, 1st episode - not responding to Vanco x 5 days - CT abdomen/pelvis: colitis, GB stones, possible cholecystitis? - changed Vanco to Fidaxomicin- day [address] Cerrato - GB US: (+) cholecystitis, cholelithiasis - advance diet to soft--> toleratin well no diarrhea x 2 days Acute Cholecystitis - LFTs within normal limits - discussed with Dr. Chow- Gen Surg hold Plavix start antibiotics-> Imipenem Day 2 - monitor for the next 24-48 hrs, may need Surgery Gen Surg on board BL Leg Edema - Lasix 20mg 1 dose 3. History of sick sinus syndrome, status post pacemaker. 4. History of hypertension.continue atenolol & diltiazem. 5. Generalized anxiety disorder. Continue buspirone. 6. Hyperlipidemia. Continue statin. 7. History of coronary artery disease, s/p stent. HOLD Plavix for possible surgery Continue aspirin, statin and beta chio. 8. Deep venous thrombosis prophylaxis. Sequential compression devices for now. Ambulates frequently. plan of care discussed with patient in detail and at length all questions answered she is understanding, agreeable, comfortable with the plan of care Admission and Anticipated Discharge Date Admission Date: November 24, 2020 Subjective ff up for c diff colitis, etc seen resting in bed, comfortable in good spirits states she feels that she is improving overall no diarrhea since yesterday no abdominal pain tolerating diet well no nausea no chills no dyspnea, chest pain, palpitations no other symptoms Review of Systems Review of Systems: all noted and negative except for above Physical Exam Physical Exam: General- oriented x 3, not in distress, speaks in sentences with no effort or accessory muscle use Eyes- anicteric Neck- no JVD Lungs- clear BS BL Heart- normal rate, regular rhythm; no murmurs Abdomen- normal bowel sounds, nondistended, soft, no tenderness, no guerrero's sign Extremities- no pretibial edema, no calf tenderness Neuro- alert, oriented x 3; no gross focal neurologic deficits Skin- warm & dry Results & Data Results & Data ([facility]) Vital Signs (Past 12 Hours) Vital Signs Temp Pulse Pulse Pulse Resp BP Pulse Ox 11/25/20 08:03 36.6 C 87 18 151/83 H 96 11/25/20 05:42 70 146/72 H 11/25/20 03:25 36.5 C 66 16 151/90 H 97 11/25/20 01:53 60 all noted and reviewed including below (1) Chest pain Chest pain type: other chest pain Qualified Code(s): R07.89 - Other chest pain
[2020-11-25] MEDS ORDERED: FUROSEMIDE 20 MG TAB PO ONE (12:17)
[2020-11-25] MEDS: metroNIDAZOLE 500 MG/100 ML BAG IV SCH ×2 (14:20→22:20)
[2020-11-25] MEDS: CIPROFLOXACIN / D5W 400 MG/200 ML BAG IV SCH (14:20)
--- NOTE | 2020-11-25 14:41 | Hospitalist Progress Note ---
Date of Service November 25, 2020 Assessment & Plan (1) C. difficile colitis: (2) Chest pain: Plan: ASSESSMENT AND PLAN: A 74-year-old gentleman with chest pain. 1. Chest pain, history of coronary artery disease s/p stent placement - acute coronary syndrome ruled out - troponin negative x 3 ekg negative echo unremarkable - continue usual cardiac meds - Dr. Waller consulted- appreciate the recommendations 2. C diff Colitis, 1st episode - not responding to Vanco x 5 days - CT abdomen/pelvis: colitis, GB stones, possible cholecystitis? - changed Vanco to Fidaxomicin- day [address] Cerrato - GB US: (+) cholecystitis, cholelithiasis - advance diet to soft--> toleratin well no diarrhea x 2 days Acute Cholecystitis - LFTs within normal limits - discussed with Dr. Chow- Gen Surg hold Plavix start antibiotics-> Imipenem Day 2 - monitor for the next 24-48 hrs, may need Surgery Gen Surg on board BL Leg Edema - Lasix 20mg 1 dose 3. History of sick sinus syndrome, status post pacemaker. 4. History of hypertension.continue atenolol & diltiazem. 5. Generalized anxiety disorder. Continue buspirone. 6. Hyperlipidemia. Continue statin. 7. History of coronary artery disease, s/p stent. HOLD Plavix for possible surgery Continue aspirin, statin and beta chio. 8. Deep venous thrombosis prophylaxis. Sequential compression devices for now. Ambulates frequently. plan of care discussed with patient in detail and at length all questions answered she is understanding, agreeable, comfortable with the plan of care Admission and Anticipated Discharge Date Admission Date: November 24, 2020 Subjective Follow-up for C. difficile colitis, etc. Seen resting in bed, comfortable, not in distress States she continues to feel better overall No abdominal pain today No diarrhea since yesterday Results & Data Results & Data ([facility]) Vital Signs (Past 12 Hours) Vital Signs Temp Pulse Pulse Resp BP Pulse Ox 11/25/20 08:03 36.6 C 87 18 151/83 H 96 11/25/20 05:42 70 146/72 H 11/25/20 03:25 36.5 C 66 16 151/90 H 97 (1) Chest pain Chest pain type: other chest pain Qualified Code(s): R07.89 - Other chest pain
[2020-11-25] MEDS: CYANOCOBALAMIN 500 MCG TABLET (VITAMIN B-12) PO SCH (17:20)
[2020-11-25] MEDS: ADVANCED PROBIOTIC 1250 MG CAPSULE PO SCH (17:20)
[2020-11-25] MEDS: COLESTIPOL HCL 1 GM TAB PO SCH (17:20)
[2020-11-25] MEDS: ASPIRIN 81 MG ECTAB PO SCH (20:41)
[2020-11-25] MEDS: SIMVASTATIN 40 MG TAB PO SCH (20:41)
[2020-11-25] MEDS: LORazepam 0.5 MG TAB PO PRN (20:52)
[2020-11-26] MEDS: CIPROFLOXACIN / D5W 400 MG/200 ML BAG IV SCH (01:39)
[2020-11-26] MEDS ORDERED: COUGH DROP (SUGAR FREE) LOZ 24 LOZ/1 BOX BUCCAL ONE (02:09)
[2020-11-26] MEDS: metroNIDAZOLE 500 MG/100 ML BAG IV SCH ×3 (05:50→22:56)
[2020-11-26 05:55] LABS: Basophils # (auto) 0.01 K/uL (0-0.2); Basophils % (auto) 0.2 %; Eosinophils # (auto) 0.06 K/uL (0-0.5); Eosinophils % (auto) 1.3 %; Hematocrit (blood only) 38.2 % (37-47); Hemoglobin 12.7 g/dL (12.0-16.0); Lymphocytes # (auto) 1.43 K/uL (1.2-3.4); Lymphocytes % (auto) 32.1 %; Mean Corpuscular Hemoglobin 30.8 pg (25-34); Mean Corpuscular Hgb Conc 33.2 g/dL (32-36); Mean Corpuscular Volume 92.5 fL (80-100); Mean Platelet Volume 9.4 fL (7.4-10.4); Monocytes # (auto) 0.38 K/uL (0.11-0.59); Monocytes % (auto) 8.5 %; Neutrophils # (auto) 2.57 K/uL (1.4-6.5); Neutrophils % (auto) 57.9 %; Platelet Count 243 K/uL (130-400); RDW Coefficient of Variation 12.9 % (11.5-14.5); RDW Standard Deviation 44.1 fL (36.4-46.3); Red Blood Count 4.13 M/uL (4.2-5.4); White Blood Count 4.45 K/uL (4.8-10.8)
[2020-11-26 07:09] LABS: BUN Creatinine Ratio 5.7 (10-20); Calcium 8.5 mg/dl (8.5-10.1); Creatinine Clr Calc Pharmacy 76.3 ml/min; Est GFR (African American) 103.9 ml/min; Est GFR (Non-African American) 89.7 ml/min; Potassium 3.4 mmol/L (3.5-5.1)
[2020-11-26] MEDS: busPIRone 5 MG TAB PO SCH ×2 (08:28→21:31)
[2020-11-26] MEDS: FIDAXOMICIN 200 MG TAB PO SCH ×2 (08:28→21:32)
[2020-11-26] MEDS: CHOLECALCIFEROL 1,000 UNITS 25 MCG TAB PO SCH (08:28)
[2020-11-26] MEDS: ATENOLOL 50 MG TABLET PO SCH ×2 (08:28→21:31)
[2020-11-26] MEDS: DICYCLOMINE HCL 10 MG CAP PO SCH ×2 (08:29→21:32)
[2020-11-26] MEDS: estradioL 1 MG TAB PO SCH (08:29)
[2020-11-26] MEDS: PANTOprazole 40 MG TAB PO SCH (08:29)
[2020-11-26] MEDS: POTASSIUM CHLORIDE CRTAB 20 MEQ TABCR PO SCH (09:32)
[2020-11-26] MEDS: CEFEPIME 2,000 MG in SYRINGE 0 ML IV SCH ×2 (14:33→22:57)
--- NOTE | 2020-11-26 15:07 | Hospitalist Progress Note ---
Date of Service November 26, 2020 Assessment & Plan (1) C. difficile colitis: (2) Chest pain: Plan: ASSESSMENT AND PLAN: A 74-year-old gentleman with chest pain. Chest pain, history of coronary artery disease s/p stent placement - acute coronary syndrome ruled out - troponin negative x 3 ekg negative echo unremarkable - continue usual cardiac meds - Dr. Waller consulted- appreciate the recommendations C diff Colitis, 1st episode - not responding to Vanco x 5 days - CT abdomen/pelvis: colitis, GB stones, possible cholecystitis? - changed Vanco to Fidaxomicin- day 4 out of [address] Cerrato - GB US: (+) cholecystitis, cholelithiasis - advance diet to soft--> tolerating well no diarrhea x 2 days -Continue fidaxomicin on discharge to complete 10-day course Acute Cholecystitis - LFTs within normal limits - discussed with Dr. Chow- Gen Surg held Plavix started antibiotics-> Imipenem Day 2 changed to cefepime plus Flagyl - Discussed with Dr. Chow again Complete treatment with p.o. antibiotics for acute cholecystitis first, also complete course of treatment for C. difficile colitis prior to elective cholecystectomy as an outpatient -Discharged on Augmentin twice daily x11 more days BL Leg Edema - Lasix 20mg 1 dose Improved 3. History of sick sinus syndrome, status post pacemaker. 4. History of hypertension.continue atenolol & diltiazem. 5. Generalized anxiety disorder. Continue buspirone. 6. Hyperlipidemia. Continue statin. 7. History of coronary artery disease, s/p stent. HOLD Plavix for possible surgery Continue aspirin, statin and beta chio. 8. Deep venous thrombosis prophylaxis. Sequential compression devices for now. Ambulates frequently. plan of care discussed with patient in detail and at length all questions answered she is understanding, agreeable, comfortable with the plan of care Admission and Anticipated Discharge Date Admission Date: November 24, 2020 Subjective Follow-up for C. difficile colitis, acute cholecystitis, etc. Seen sitting up in bed, comfortable, not in distress, in good spirits States she continues to feel much better overall No abdominal pain, no right upper quadrant pain, tolerating diet well No diarrhea since yesterday No fevers or chills No chest pain, palpitations, dizziness, no other symptoms Review of Systems Review of Systems: all noted and negative except for above Physical Exam Physical Exam: General- oriented x 3, not in distress, speaks in sentences with no effort or accessory muscle use Eyes- anicteric Neck- no JVD Lungs- clear BS bilaterally, no crackles or wheezing Heart- normal rate, regular rhythm; no murmurs Abdomen- normal bowel sounds, nondistended, soft, no Jewell sign, no abdominal tenderness Extremities-only trace pretibial and pedal edema no erythema/warmth/tenderness, no calf tenderness Neuro- alert, oriented x 3; no gross focal neurologic deficits Skin- warm & dry Results & Data Results & Data ([facility]) Vital Signs (Past 12 Hours) Vital Signs Temp Pulse Resp BP Pulse Ox 11/26/20 08:27 36.5 C 78 16 154/83 H 97 all noted and reviewed including below (1) Chest pain Chest pain type: other chest pain Qualified Code(s): R07.89 - Other chest pain
--- NOTE | 2020-11-26 15:33 | Surgery Progress Note ---
Date of Service November 26, 2020 Assessment & Plan (1) C. difficile colitis: (2) Chest pain: (3) Cholecystitis with cholelithiasis: Plan: 74-year-old woman with extensive past medical history including stage III angina status post 2 drug-eluting stents on Plavix presents with C. difficile colitis as well as a question of acute cholecystitis on imaging. Her chest and epigastric pain have completely resolved since admission to the hospital. Her last dose of Plavix was Wednesday. She has an extensive surgical history including a serious complication from a laparoscopic hiatal hernia repair in the past, which has left her very reticent to undergo any surgical procedure unless absolutely necessary. She is currently on Dificid. She continues to improve. She is having normal bowel movements currently. She denies any pain in her right upper quadrant. We will advance her diet as tolerated. Plan for discharge to home in the next 1 to 2 days. She will follow-up as an outpatient for work-up for elective lap neftali. Admission and Anticipated Discharge Date Admission Date: November 24, 2020 Subjective Feeling better today. She is having formed stool. She denies any right upper quadrant pain while eating. She denies fevers and chills. Physical Exam Constitutional: WD/WN, vitals as above Eyes: PERRL, conjunctivae normal, anicteric sclerae Neck: trachea midline, no thyromegaly Respiratory: normal respiratory effort, lungs clear to auscultation Cardiovascular: RRR, no murmur, no edema Gastrointestinal (Abdomen): Inspection/Auscultation: abdomen normal to inspection; abdomen not distended Percussion/Palpation: + abdomen tender (minimal tenderness right lower quadrant) and abdomen soft; no guarding and abdomen not rigid Musculoskeletal: Extremities: no cyanosis and no clubbing Skin: no rashes, warm and dry Psychiatric: A+Ox3, euthymic affect Lymphatic: no cervical lymphadenopathy Results & Data ([facility]) Vital Signs (Past 12 Hours) Vital Signs Temp Pulse Resp BP Pulse Ox 11/26/20 08:27 36.5 C 78 16 154/83 H 97 Laboratory Results 11/26/20 11/26/20 Range/Units 05:32 05:32 WBC 4.45 L (4.8-10.8) K/uL RBC 4.13 L (4.2-5.4) M/uL Hgb 12.7 (12.0-16.0) g/dL Hct 38.2 (37-47) % MCV 92.5 (80-100) fL MCH 30.8 (25-34) pg MCHC 33.2 (32-36) g/dL RDW Std Deviation 44.1 (36.4-46.3) fL RDW Coeff of Nanette 12.9 (11.5-14.5) % Plt Count 243 (130-400) K/uL MPV 9.4 (7.4-10.4) fL Immature Gran % (Auto) 0.0 % Neut % (Auto) 57.9 % Lymph % (Auto) 32.1 % [place] % (Auto) 8.5 % Eos % (Auto) 1.3 % Baso % (Auto) 0.2 % Neut # (Auto) 2.57 (1.4-6.5) K/uL Lymph # (Auto) 1.43 (1.2-3.4) K/uL [place] # (Auto) 0.38 (0.11-0.59) K/uL Eos # (Auto) 0.06 (0-0.5) K/uL Baso # (Auto) 0.01 (0-0.2) K/uL Immature Gran # (Auto) 0.00 (0.00-0.02) K/uL Sodium 141 (136-145) mmol/L Potassium 3.4 L (3.5-5.1) mmol/L Chloride 108 H (98-107) mmol/L Carbon Dioxide 27 (21-32) mmol/L Anion Gap 6.0 (3-11) BUN 3 L (7-18) mg/dl Creatinine 0.59 L (0.6-1.2) mg/dl Est Cr Clr Drug Dosing 76.3 ml/min Est GFR ( Amer) 103.9 ml/min Est GFR (Non-Af Amer) 89.7 ml/min BUN/Creatinine Ratio 5.7 L (10-20) Glucose 89 (70-99) mg/dl Calcium 8.5 (8.5-10.1) mg/dl (1) Chest pain Chest pain type: unspecified Qualified Code(s): R07.9 - Chest pain, unspecified
[2020-11-26] MEDS: ADVANCED PROBIOTIC 1250 MG CAPSULE PO SCH (17:17)
[2020-11-26] MEDS: COLESTIPOL HCL 1 GM TAB PO SCH (17:17)
[2020-11-26] MEDS: CYANOCOBALAMIN 500 MCG TABLET (VITAMIN B-12) PO SCH (17:18)
[2020-11-26] MEDS: ONDANSETRON INJ 2 MG/ML 2 ML VIAL IV PRN (19:58)
[2020-11-26] MEDS: ASPIRIN 81 MG ECTAB PO SCH (21:31)
[2020-11-26] MEDS: CLOPIDOGREL BISULFATE 75 MG TAB PO SCH (21:32)
[2020-11-26] MEDS: LORazepam 0.5 MG TAB PO PRN (21:33)
[2020-11-26] MEDS: SIMVASTATIN 40 MG TAB PO SCH (21:33)
[2020-11-27] MEDS: CEFEPIME 2,000 MG in SYRINGE 0 ML IV SCH (06:01)
[2020-11-27] MEDS: metroNIDAZOLE 500 MG/100 ML BAG IV SCH (06:01)
[2020-11-27] MEDS: ACETAMINOPHEN 325 MG TAB PO PRN (06:05)
[2020-11-27 06:22] LABS: Basophils # (auto) 0.01 K/uL (0-0.2); Basophils % (auto) 0.3 %; Eosinophils # (auto) 0.06 K/uL (0-0.5); Eosinophils % (auto) 1.7 %; Hematocrit (blood only) 38.2 % (37-47); Hemoglobin 12.7 g/dL (12.0-16.0); Lymphocytes # (auto) 1.18 K/uL (1.2-3.4); Lymphocytes % (auto) 32.9 %; Mean Corpuscular Hemoglobin 31.1 pg (25-34); Mean Corpuscular Hgb Conc 33.2 g/dL (32-36); Mean Corpuscular Volume 93.4 fL (80-100); Mean Platelet Volume 9.7 fL (7.4-10.4); Monocytes # (auto) 0.44 K/uL (0.11-0.59); Monocytes % (auto) 12.3 %; Neutrophils % (auto) 52.8 %; Platelet Count 252 K/uL (130-400); RDW Coefficient of Variation 13.1 % (11.5-14.5); Red Blood Count 4.09 M/uL (4.2-5.4); White Blood Count 3.59 K/uL (4.8-10.8)
[2020-11-27 06:53] LABS: BUN Creatinine Ratio 7.5 (10-20); Calcium 8.4 mg/dl (8.5-10.1); Creatinine Clr Calc Pharmacy 73.8 ml/min; Est GFR (African American) 102.8 ml/min; Est GFR (Non-African American) 88.7 ml/min; Potassium 3.6 mmol/L (3.5-5.1)
--- NOTE | 2020-11-27 08:59 | Surgery Progress Note ---
Date of Service November 27, 2020 Assessment & Plan (1) Cholecystitis with cholelithiasis: Plan: 74-year-old woman with extensive past medical history including stage III angina status post 2 drug-eluting stents on Plavix presents with C. difficile colitis as well as a question of acute cholecystitis on imaging. Her chest and epigastric pain have completely resolved since admission to the hospital. Her last dose of Plavix was Wednesday. She has an extensive surgical history including a serious complication from a laparoscopic hiatal hernia repair in the past, which has left her very reticent to undergo any surgical procedure unless absolutely necessary. She is currently on Dificid. She continues to improve. She is having normal bowel movements currently. She denies any pain in her right upper quadrant. We will advance her diet as tolerated. Plan for discharge to home most likely today. She will follow-up as an outpatient for work-up for elective lap neftali. Admission and Anticipated Discharge Date Admission Date: November 24, 2020 Subjective continues to feel better. She denies any right upper quadrant pain while ea ting. She denies fevers and chills. Review of Systems Review of Systems: all noted and negative except for above Physical Exam Constitutional: WD/WN, vitals as above Eyes: PERRL, conjunctivae normal, anicteric sclerae Neck: trachea midline, no thyromegaly Gastrointestinal (Abdomen): Inspection/Auscultation: abdomen normal to inspection; abdomen not distended Percussion/Palpation: + abdomen tender (minimal tenderness right lower quadrant) and abdomen soft; no guarding and abdomen not rigid Musculoskeletal: Extremities: no cyanosis and no clubbing Skin: no rashes, warm and dry Psychiatric: A+Ox3, euthymic affect Lymphatic: no cervical lymphadenopathy Results & Data ([facility]) Vital Signs (Past 12 Hours) Vital Signs Temp Pulse Resp BP BP Pulse Ox 11/27/20 07:16 36.6 C 63 17 142/83 H 95 11/26/20 23:18 36.6 C 63 20 135/77 96 Laboratory Results 11/27/20 11/27/20 Range/Units 05:37 05:37 WBC 3.59 L (4.8-10.8) K/uL RBC 4.09 L (4.2-5.4) M/uL Hgb 12.7 (12.0-16.0) g/dL Hct 38.2 (37-47) % MCV 93.4 (80-100) fL MCH 31.1 (25-34) pg MCHC 33.2 (32-36) g/dL RDW Std Deviation 45.0 (36.4-46.3) fL RDW Coeff of Nanette 13.1 (11.5-14.5) % Plt Count 252 (130-400) K/uL MPV 9.7 (7.4-10.4) fL Immature Gran % (Auto) 0.0 % Neut % (Auto) 52.8 % Lymph % (Auto) 32.9 % [place] % (Auto) 12.3 % Eos % (Auto) 1.7 % Baso % (Auto) 0.3 % Neut # (Auto) 1.90 (1.4-6.5) K/uL Lymph # (Auto) 1.18 L (1.2-3.4) K/uL [place] # (Auto) 0.44 (0.11-0.59) K/uL Eos # (Auto) 0.06 (0-0.5) K/uL Baso # (Auto) 0.01 (0-0.2) K/uL Immature Gran # (Auto) 0.00 (0.00-0.02) K/uL Sodium 141 (136-145) mmol/L Potassium 3.6 (3.5-5.1) mmol/L Chloride 108 H (98-107) mmol/L Carbon Dioxide 27 (21-32) mmol/L Anion Gap 6.0 (3-11) BUN 5 L (7-18) mg/dl Creatinine 0.61 (0.6-1.2) mg/dl Est Cr Clr Drug Dosing 73.8 ml/min Est GFR ( Amer) 102.8 ml/min Est GFR (Non-Af Amer) 88.7 ml/min BUN/Creatinine Ratio 7.5 L (10-20) Glucose 93 (70-99) mg/dl Calcium 8.4 L (8.5-10.1) mg/dl
[2020-11-27] MEDS: FIDAXOMICIN 200 MG TAB PO SCH (09:22)
[2020-11-27] MEDS ORDERED: traMADol HCL 50 MG TABLET PO STA (09:22)
[2020-11-27] MEDS: busPIRone 5 MG TAB PO SCH (09:23)
[2020-11-27] MEDS: POTASSIUM CHLORIDE CRTAB 20 MEQ TABCR PO SCH (09:23)
[2020-11-27] MEDS: PANTOprazole 40 MG TAB PO SCH (09:23)
[2020-11-27] MEDS: CHOLECALCIFEROL 1,000 UNITS 25 MCG TAB PO SCH (09:23)
[2020-11-27] MEDS: DICYCLOMINE HCL 10 MG CAP PO SCH (09:23)
[2020-11-27] MEDS: ATENOLOL 50 MG TABLET PO SCH (09:23)
[2020-11-27] MEDS ORDERED: oxyCODONE/ACETAMINOPHEN 5mg/325mg TAB PO STA (12:52)
[2020-11-27] MEDS ORDERED: ONDANSETRON 4 MG OD TAB SL PRN (13:51)
--- NOTE | 2020-11-27 13:54 | Discharge Summary ---
Date of Service November 27, 2020 Discharge Data Allergies Allergy/AdvReac Type Severity Reaction Status Date / Time escitalopram Allergy Unknown itching Verified 08/01/19 05:01 latex Allergy Unknown RASH Verified 08/01/19 05:01 epinephrine AdvReac Intermediate HEART RACES Verified 08/01/19 05:01 chlorhexidine AdvReac Mild rash, Verified 08/01/19 05:01 itching alprazolam AdvReac Unknown HEADACHE Verified 08/01/19 05:01 Consultations 11/23/20 09:28 Consult Cardiology Routine 11/23/20 10:57 Consult Gastroenterology Routine 11/24/20 07:32 Consult General Surgery Routine Ordered Studies 11/23/20 10:58 CT abd pelvis wo con Urgent 11/24/20 12:43 US gallbladder Urgent Hospital Course (1) C. difficile colitis: (2) Chest pain: ASSESSMENT AND PLAN: A 74-year-old gentleman with chest pain. Chest pain, history of coronary artery disease s/p stent placement - acute coronary syndrome ruled out - troponin negative x 3 ekg negative echo unremarkable - continue usual cardiac meds - Dr. Waller consulted- appreciate the recommendations C diff Colitis, 1st episode - not responding to Vanco x 5 days - CT abdomen/pelvis: colitis, GB stones, possible cholecystitis? - changed Vanco to Fidaxomicin- day 4 out [address] Cerrato - GB US: (+) cholecystitis, cholelithiasis - advance diet to soft--> tolerating well no diarrhea x 2 days -Continue fidaxomicin on discharge to complete 10-day course Acute Cholecystitis - LFTs within normal limits - discussed with Dr. Figueroa- Gen Surg held Plavix started antibiotics-> Imipenem Day 2 changed to cefepime plus Flagyl - Discussed with Dr. Figueroa again Complete treatment with p.o. antibiotics for acute cholecystitis first, also complete course of treatment for C. difficile colitis prior to elective cholecystectomy as an outpatient -Discharged on Augmentin twice daily x11 more days BL Leg Edema - Lasix 20mg 1 dose Improved 3. History of sick sinus syndrome, status post pacemaker. 4. History of hypertension.continue atenolol & diltiazem. 5. Generalized anxiety disorder. Continue buspirone. 6. Hyperlipidemia. Continue statin. 7. History of coronary artery disease, s/p stent. HOLD Plavix for possible surgery Continue aspirin, statin and beta chio. 8. Deep venous thrombosis prophylaxis. Sequential compression devices for now. Ambulates frequently. plan of care discussed with patient in detail and at length all questions answered she is understanding, agreeable, comfortable with the plan of care Discharge Plan Discharge Items Patient Disposition: Home - Self-Care Reason For Visit: CHEST PAIN Discharge Diagnosis: C DIFF COLITIS ACUTE CHOLECYSTITIS Activity: Resume your previous activity Non-emergency contact: Primary Care Provider and Surgeon Call non-emergency contact if: you have any medication questions, your symptoms worsen, your pain is not controlled, your pain is worsening, your pain is unusual for you, your pain is concerning for you and you have a fever Follow-up/Referrals: Conner Figueroa MD [Physician] - Anders Crawley DO [Primary Care Provider] - (Date & Time 12/02/2020 1:40 PM Provider Anders Crawley DO [facility] ) Diet: Heart Healthy, Low Fiber and Low Fat Addtl Attending Provider Instructions: PLEASE REFER TO YOUR NEW MEDICATION LIST AND FOLLOW INSTRUCTIONS CAREFULLY. YOUR NEW MEDICATIONS INCLUDE: AUGMENTIN- antibiotic for cholecystitis FIDAXOMICIN- treatment for C diff colitis NORCO- as need for severe pain (please hold next dose if you become drowsy and lethargy) Do not drive or operate any machine after taking the narcotic Fall precaution Advance diet slowly as tolerated PLEASE CALL YOUR PRIMARY CARE PHYSICIAN OR RETURN TO THE ER IF WITH WORSENING OF SYMPTOMS, INCLUDING ABDOMINAL PAIN, DIARRHEA, NAUSEA/VOMITING, FEVER/CHILLS. FOLLOW UP WITH PRIMARY CARE PHYSICIAN IN 1 WEEK. FOLLOW UP WITH SURGEON DR. BRENT FIGUEROA IN 2 WEEKS. Pending Studies at Discharge: No Stand-Alone Forms: My [employer], Smoking Cessation Medications and DC Order Prescriptions: New Dificid 200 mg Tablet 200 mg PO BID Qty: 20 RF: 0 amoxicillin-pot clavulanate [Augmentin] 875-125 mg tablet 1 tab PO BID Qty: 20 RF: 0 hydrocodone-acetaminophen 5-325 mg tablet 1 tab PO BID PRN (Reason: severe pain) Qty: 10 RF: 0 ondansetron 4 mg Tablet,Disintegrating 4 mg sublingual Q8H PRN (Reason: nausea and vomiting) Qty: 30 RF: 0 Continued buspirone 5 mg Tablet 5 mg PO BID RF: 0 loperamide [Imodium A-D] 2 mg Capsule 2 mg PO Q4H PRN (Reason: Diarrhea) RF: 0 aspirin [Aspirin Low Dose] 81 mg Tablet,Delayed Release (Dr/Ec) 81 mg PO HS RF: 0 simvastatin [Zocor] 40 mg Tablet 40 mg PO HS RF: 0 acetaminophen [Tylenol Arthritis Pain] 650 mg Tablet Extended Release 650 mg PO DIRECTED PRN (Reason: Pain) RF: 0 lorazepam [Ativan] 0.5 mg Tablet 0.5 mg PO TID PRN (Reason: Anxiety) RF: 0 nitroglycerin [Nitrostat] 0.4 mg Tablet, Sublingual 0.4 mg sublingual DIRECTED PRN (Reason: Chest Pain) RF: 0 hydrochlorothiazide 25 mg Tablet 12.5 mg PO QAM PRN (Reason: Edema) RF: 0 estradiol [Estrace] 0.5 mg Tablet 1 dose PO SUTUTHSA RF: 0 albuterol sulfate [Proventil HFA] 90 mcg/actuation Hfa Aerosol Inhaler 2 puff INHALATION Q4 PRN (Reason: Wheezing) RF: 0 dicyclomine 10 mg Capsule 10 mg PO BID RF: 0 cholecalciferol (vitamin D3) [Vitamin D3] 2,000 unit Capsule 2,000 unit PO QAM RF: 0 Probiotic 3 billion cell Capsule 3 mmu PO QDD RF: 0 Cbd Oil 7.5 drp PO BID PRN (Reason: Pain) RF: 0 clopidogrel [Plavix] 75 mg Tablet 75 mg PO HS RF: 0 pantoprazole [Protonix] 40 mg tablet,delayed release (DR/EC) 40 mg PO QAM RF: 0 atenolol [Tenormin] 50 mg tablet 50 mg PO AMHS RF: 0 cyanocobalamin (vitamin B-12) [Vitamin B-12] 1,000 mcg Tablet 0 mcg PO QDD RF: 0 colestipol [Colestid] 1 gram tablet 1 g PO QDD RF: 0 Potassium 99mg 99 mg PO HS RF: 0 Cbd Gummies 2 tab PO UD RF: 0 Discontinued vancomycin [Vancocin] 125 mg capsule 125 mg PO Q6H RF: 0 Discharge Orders: Discharge Order (Routine); Ordered 11/27/20 Ordered By: Mile Ledesma Admission Data Admit Date/Time: 11/24/20 08:19 Attending Provider: Mile Ledesma Admit Provider: Dean Dean Primary Care Provider: Anders Crawley Other Providers: Kai Harrison ; Scotty Cisneros ; Harsh Waller ; Akash Mccabe ; Austin Robles ; Amador Uriarte ; Theodora Roca ; Celia Magallanes ; Carmela Boothe ; Rell Inman ; Abhay Cerrato ; Conner Figueroa
[2020-11-27] MEDS ORDERED: FIDAXOMICIN 200 MG TAB PO SCH ×3 (21:00)
== END 2020-11-27 16:28 | disposition home or self-care (01) | DRG 445 ==
LOC: ED 00:53 → 2N 00:53 → SUATTDRO 11-24 08:19 → 3N 11-25 02:56

== ENCOUNTER 2021-05-27 11:38 | Observation (INO) ==
--- NOTE | 2021-05-27 12:05 | Emergency Department Note ---
History of Present Illness General Chief complaint: Weakness Stated complaint: CHEST TIGHTNESS, LIGHTHEADED, FATIGUE, WEAKNESS Time Seen by Provider: 05/27/21 11:43 Source: patient History of Present Illness Provider complaint: Chest pain Onset (ago): day(s) Location: chest Radiation: extremity (Left arm) Pain Consistency: + intermittent Quality: + other (Tightness) Exacerbated By: + none Associated symptoms: + cough (Chronic), + shortness of breath and + weakness; no fever/chills or no nausea/vomiting This is a 75-year-old female with a history of CAD with stent presenting with chest discomfort starting 2 days ago. She describes it as a tightness in the middle of her chest. She states it is enough that she has to clutch her chest when it happens. It only lasts for a few minutes. She is short of breath and today she was sweating. She also describes pain in her back and the upper portion which she states feels like a pressure. She also states that she has been getting her "angina" pain in her left chest and down her left arm as well. She feels very weak in general. She does state that she has been under a lot of stress recently as her cousin last month. She was seeing her nurse today who was taking care of her pessary and told the nurse her symptoms who adv ised her to come to the emergency department. She denies any fever or vomiting. She does state that she has a chronic unchanged cough which is mild and occasional. She does have a history of IBS and so she has chronic abdominal discomfort with diarrhea which is also unchanged. She denies any swelling or pain to her legs that is out of the ordinary. She generally has discoloration to her feet and swelling to her feet which is chronic and unchanged today. Home Medications Medication Instructions Recorded Confirmed Type acetaminophen 650 mg 650 mg PO DIRECTED PRN 06/16/18 05/27/21 History tablet,extended release (Tylenol Arthritis Pain) albuterol sulfate 90 mcg/actuation 2 puff INHALATION Q4 PRN 06/16/18 05/27/21 History aerosol inhaler (Proventil HFA) aspirin 81 mg tablet,delayed 81 mg PO HS 06/16/18 05/27/21 History release (Aspirin Low Dose) buspirone 5 mg tablet 5 mg PO BID 06/16/18 05/27/21 History cholecalciferol (vitamin D3) 50 2,000 unit PO QAM 06/16/18 05/27/21 History mcg (2,000 unit) capsule (Vitamin D3) dicyclomine 10 mg capsule 10 mg PO BIDM 06/16/18 05/27/21 History estradiol 0.5 mg tablet (Estrace) 0.5 mg PO 4XWK 06/16/18 05/27/21 History hydrochlorothiazide 25 mg tablet 12.5 mg PO QAM PRN 06/16/18 05/27/21 History loperamide 2 mg capsule (Imodium 2 mg PO DIRECTED PRN 06/16/18 05/27/21 History A-D) lorazepam 0.5 mg tablet (Ativan) 0.5 mg PO TID PRN 06/16/18 05/27/21 History nitroglycerin 0.4 mg sublingual 0.4 mg SUBLINGUAL DIRECTED PRN 06/16/18 05/27/21 History tablet (Nitrostat) simvastatin 40 mg tablet (Zocor) 20 mg PO HS 06/16/18 05/27/21 History pantoprazole 40 mg tablet,delayed 40 mg PO QAM 05/07/19 05/27/21 History release (Protonix) atenolol 50 mg tablet (Tenormin) 50 mg PO AMHS 08/01/19 05/27/21 History Cbd Gummies 0 tab PO DIRECTED 11/23/20 05/27/21 History colestipol 1 gram tablet (Colestid) 1 g PO BID 11/23/20 05/27/21 History cyanocobalamin (vitamin B-12) 1,000 mcg PO QDD 11/23/20 05/27/21 History 1,000 mcg tablet (Vitamin B-12) Lactobacillus rhamnosus GG 15 1 cap PO BIDM 12/23/20 05/27/21 History billion cell sprinkle capsule (Culturelle) diltiazem HCl 120 mg capsule,24 120 mg PO QAM 12/23/20 05/27/21 History hr,extended release potassium gluconate 595 mg (99 mg) 595 mg PO DAILY 02/22/21 05/27/21 History tablet clotrimazole-betamethasone 1 1 applic TOPICAL BID 05/27/21 05/27/21 History %-0.05 % topical cream conjugated estrogens 0.625 mg/gram 0.3125 mg VAGINAL 2XWK 05/27/21 05/27/21 History vaginal cream desonide 0.05 % lotion 1 applic TOPICAL BID PRN 05/27/21 05/27/21 History diclofenac sodium 1 % topical gel 2 g TOPICAL BID PRN 05/27/21 05/27/21 History fluocinolone 0.01 % scalp oil and 1 ea TOPICAL DAILY PRN 05/27/21 05/27/21 History shower cap guar gum 1 tbsp PO TIDM 05/27/21 05/27/21 History ibuprofen 200 mg tablet 400 mg PO DIRECTED PRN 05/27/21 05/27/21 History lifitegrast 5 % eye drops in a 1 drp OPHTHALMIC (EYE) BID 05/27/21 05/27/21 History dropperette (Xiidra) magnesium oxide 0 mg PO DAILY 05/27/21 05/27/21 History ondansetron 4 mg disintegrating 4 mg SUBLINGUAL Q6H PRN 05/27/21 05/27/21 History tablet sucralfate 1 gram tablet (Carafate) 1 g PO ACHS PRN 05/27/21 05/27/21 History Allergies Allergy/AdvReac Type Severity Reaction Status Date / Time chlorhexidine Allergy Intermediate ITCHY RASH Verified 05/27/21 14:59 latex Allergy Mild Rash Verified 05/27/21 14:59 adhesive Allergy Rash Verified 05/27/21 14:59 epinephrine AdvReac Intermediate HEART RACES Verified 05/27/21 14:59 escitalopram AdvReac Intermediate ITCHING/SAIDA Verified 05/27/21 14:59 MACI paroxetine [From Paxil] AdvReac Intermediate FOGGY/VISUAL Verified 05/27/21 14:59 IMPAIRMENT alprazolam AdvReac Unknown HEADACHE Verified 05/27/21 14:59 Past Med/Surg History Medical History Anxiety Asthma rare use of PRN inh CAD (coronary artery disease) per outpatient cardio note: History of anterior wall AZ at age 45, PTCA of the LAD at that time. Abnormal stress testing in March 2004 with repeat catheterization on 04-09-04 demonstrating nonobstructive CAD with a total chronic occlusion of a 2nd diagonal branch and mild CAD elsewhere. Cardiac catheterization in July 2016 demonstrating the chronic total occlusion of a diagonal branch with [id number] collaterals, 30% ostial RCA stenosis, and 30% mid RCA stenosis. LVEDP normal, 8 mmHg. Presentation to [facility] May 2018 with unstable angina. Diagnostic cardiac catheterization with severe single-vessel coronary artery disease with an 80% mid RCA stenosis for which she underwent PCI, 3.0 x 18 mm drug-eluting stent implantation by Dr. Mclaughlin Admission to [facility] in October 2018 with unstable angina, status post November 16, 2018 cardiac catheterization which demonstrated a severe, moderately calcified, 70% ostial right coronary artery stenosis with catheter dampening noted on engagement, status post successful PCI the ostial RCA with a single 3.0 x 12 Xience Eda drug-eluting stent. The previously placed mid RCA stent was noted to be patent. Chronic diagonal occlusion with collaterals. DDD (degenerative disc disease) Diverticulosis of colon Dry eye Encounter for pre-operative examination GERD (gastroesophageal reflux disease) History of Clostridioides difficile infection 11/2020; pt reports symptoms resolved. History of myocardial infarction (03/01/11) "anterior wall AZ" at age 45 History of recent hospitalization 11/2020; c.diff, cholecystitis HLD (hyperlipidemia) HTN (hypertension) IBS (irritable bowel syndrome) On anticoagulant therapy Osteoarthritis Pacemaker placed approx 5 years ago; SSS; medtronic - checked within last 2 mo SSS (sick sinus syndrome) Surgical History H/O exploratory laparotomy "02/05/15 Dr. Marques Rodriguez" History of cardiac catheterization 2019 [place] - 2 stents placed (1 stent x 2 procedures) age 45 - angioplasty History of cataract extraction History of colonoscopy History of esophagogastroduodenoscopy (EGD) History of hysterectomy History of mandibular surgery History of Faisal fundoplication "02/05/[address] Marques Rodriguez" History of PTCA History of tonsillectomy and adenoidectomy History of tooth extraction S/P repair of paraesophageal hernia "02/04/15 complicated by esophageal perforation" Family History Father Lung cancer Mother Hypertension Other No family history of adverse response to anesthesia Social History Smoking Status: Former smoker Tobacco Type: Cigarettes Smoking End Date: 5 or 6 years ago; Second Hand Exposure: No; Do You Dip or Chew Tobacco: No; Tobacco Cessation Education Requested by Patient: No Hx Alcohol Use: No Hx Substance Use: No (CBD/THC gummies) Preferred Language: Setswana Communication Ability: Effective Gift Shop Manager Required: No Beliefs That Will Affect Care: None marital status: Current Living Situation: Spouse Current Living Situation Comment: [facility] current occupation: retired How many Children do You have: 2 Other Information That Helps Us Care for You: No Feels Safe at Home: Yes Safety Concerns: Feels Safe At This Time Assistive Devices: Denture - Upper, Denture - Lower and Glasses Review of Systems See HPI for pertinent positives & negatives. and A total of 10 systems reviewed and were otherwise negative Physical Exam Vital Signs Vital Signs - 24 hr 05/27/21 11:41 05/27/21 11:59 05/27/21 12:00 Temperature 36.4 C L Temperature Source Temporal Artery Scan Pulse Rate 76 64 63 Pulse Rate from SpO2 Sensor 61 Respiratory Rate 20 17 17 Respiratory Effort / Characteristics Non-Labored Respiratory Depth Normal Respiratory Pattern Regular Blood Pressure 128/84 158/77 H Blood Pressure Mean 98 104 Blood Pressure Position Sitting Pulse Oximetry 98 99 Oxygen Delivery Method Room Air Room Air Room Air Sepsis Recent Fever Within 48 Hours No Sepsis New/Unexplained Change in Mental Status N/A Sepsis Action Taken by Nursing No Action Required 05/27/21 12:10 05/27/21 12:14 05/27/21 12:20 Temperature Temperature Source Pulse Rate 60 62 Pulse Rate from SpO2 Sensor 60 62 Respiratory Rate 12 18 Respiratory Effort / Characteristics Respiratory Depth Respiratory Pattern Blood Pressure Blood Pressure Mean Blood Pressure Position Pulse Oximetry 99 98 Oxygen Delivery Method Room Air Room Air Room Air Sepsis Recent Fever Within 48 Hours Sepsis New/Unexplained Change in Mental Status Sepsis Action Taken by Nursing 05/27/21 12:30 05/27/21 12:40 05/27/21 12:50 Temperature Temperature Source Pulse Rate 62 61 60 Pulse Rate from SpO2 Sensor 55 L 61 60 Respiratory Rate 20 17 18 Respiratory Effort / Characteristics Respiratory Depth Respiratory Pattern Blood Pressure 150/71 H Blood Pressure Mean 97 Blood Pressure Position Pulse Oximetry 98 98 97 Oxygen Delivery Method Room Air Room Air Room Air Sepsis Recent Fever Within 48 Hours Sepsis New/Unexplained Change in Mental Status Sepsis Action Taken by Nursing 05/27/21 13:00 05/27/21 13:01 05/27/21 13:10 Temperature Temperature Source Pulse Rate 61 60 60 Pulse Rate from SpO2 Sensor Respiratory Rate 13 23 18 Respiratory Effort / Characteristics Respiratory Depth Respiratory Pattern Blood Pressure 131/74 Blood Pressure Mean 93 Blood Pressure Position Pulse Oximetry Oxygen Delivery Method Room Air Room Air Room Air Sepsis Recent Fever Within 48 Hours Sepsis New/Unexplained Change in Mental Status Sepsis Action Taken by Nursing 05/27/21 13:20 05/27/21 13:30 05/27/21 13:40 Temperature Temperature Source Pulse Rate 64 60 60 Pulse Rate from SpO2 Sensor Respiratory Rate 20 18 17 Respiratory Effort / Characteristics Respiratory Depth Respiratory Pattern Blood Pressure Blood Pressure Mean Blood Pressure Position Pulse Oximetry Oxygen Delivery Method Room Air Room Air Room Air Sepsis Recent Fever Within 48 Hours Sepsis New/Unexplained Change in Mental Status Sepsis Action Taken by Nursing 05/27/21 13:50 05/27/21 14:00 05/27/21 14:10 Temperature Temperature Source Pulse Rate 62 60 60 Pulse Rate from SpO2 Sensor Respiratory Rate 18 16 19 Respiratory Effort / Characteristics Respiratory Depth Respiratory Pattern Blood Pressure Blood Pressure Mean Blood Pressure Position Pulse Oximetry Oxygen Delivery Method Room Air Room Air Room Air Sepsis Recent Fever Within 48 Hours Sepsis New/Unexplained Change in Mental Status Sepsis Action Taken by Nursing 05/27/21 14:20 05/27/21 14:30 05/27/21 14:40 Temperature Temperature Source Pulse Rate 60 60 60 Pulse Rate from SpO2 Sensor Respiratory Rate 15 16 20 Respiratory Effort / Characteristics Respiratory Depth Respiratory Pattern Blood Pressure Blood Pressure Mean Blood Pressure Position Pulse Oximetry Oxygen Delivery Method Room Air Room Air Room Air Sepsis Recent Fever Within 48 Hours Sepsis New/Unexplained Change in Mental Status Sepsis Action Taken by Nursing Constitutional: Vital signs reviewed. Eyes: Pupils are equal round reactive to light. Conjunctiva are noninjected. ENT: Pharynx is clear without erythema or exudate. Mucous membranes are moist. Neck supple without meningeal signs. Respiratory: Clear to auscultation bilaterally. Breath sounds are equal bilaterally. Cardiovascular: Regular rate and rhythm. No rubs or gallops. GI: Soft, nondistended and nontender. Bowel sounds are present. Musculoskeletal: Bilateral ankle and foot edema. No calf tenderness. Delayed cap refill in the toes which are slightly cold and erythematous. Integumentary: No cyanosis. or jaundice. Neurological: The patient is awake and alert. No focal deficits. Psychiatric: Anxious. Medical Decision Making Differential Diagnosis Unstable angina, AZ, anxiety, grief reaction, GERD Medical Records Attestation: I reviewed the patient's medical records. I did perform a limited focused review of portions of the patient's old chart on the electronic medical record. The patient underwent cardiac catheterization 2018 and had a stent placed in the RCA. Home Medications Current Medication List: was personally reviewed by me Laboratory Data Attestation: I reviewed the patient's lab results. Result diagrams: 05/27/21 13:04 05/27/21 12:11 Lab Results 05/27/21 05/27/21 05/27/21 Range/Units 12:05 12:11 12:11 WBC Cancelled RBC Cancelled Hgb Cancelled Hct Cancelled MCV Cancelled MCH Cancelled MCHC Cancelled RDW Std Deviation Cancelled RDW Coeff of Nanette Cancelled Plt Count Cancelled MPV Cancelled Immature Gran % (Auto) Cancelled Neut % (Auto) Cancelled Lymph % (Auto) Cancelled [place] % (Auto) Cancelled Eos % (Auto) Cancelled Baso % (Auto) Cancelled Neut # (Auto) Cancelled Lymph # (Auto) Cancelled [place] # (Auto) Cancelled Eos # (Auto) Cancelled Baso # (Auto) Cancelled Immature Gran # (Auto) Cancelled Absolute Nucleated RBC Cancelled Nucleated RBC % (auto) Cancelled Neutrophils % (Manual) Cancelled Band Neutrophils % Cancelled Lymphocytes % (Manual) Cancelled Prolymphocyte % Cancelled Reactive Lymphs % (Man) Cancelled Monocytes % (Manual) Cancelled Eosinophils % (Manual) Cancelled Basophils % (Manual) Cancelled Metamyelocytes % (Man) Cancelled Myelocytes % (Man) Cancelled Promyelocytes % (Man) Cancelled Blast Cells % (Manual) Cancelled Plasma Cell % (Manual) Cancelled Other Cells % Cancelled Nucleated RBC % Cancelled Neutrophils # (Manual) Cancelled Band Neutrophils # Cancelled Total Absolute Neuts Cancelled Lymphocytes # (Manual) Cancelled Prolymphocyte # Cancelled Reactive Lymphs # Cancelled Total Abs Lymphocytes Cancelled Monocytes # (Manual) Cancelled Eosinophils # (Manual) Cancelled Basophils # (Manual) Cancelled Metamyelocytes # (Man) Cancelled Myelocytes # (Manual) Cancelled Promyelocytes # (Man) Cancelled Blast Cells # (Man) Cancelled Plasma Cell # (Manual) Cancelled Other Cells # Cancelled Nucleated RBCs # (Man) Cancelled Hypersegmented Neuts Cancelled Hyposegmented Neuts Cancelled Hypogranular Neuts Cancelled Large Granular Lymphs Cancelled # Lrg Granular Lymphs Cancelled Hairy Cells Cancelled Smudge Cells Cancelled Toxic Granulation Cancelled Toxic Vacuolation Cancelled Dohle Bodies Cancelled Mati Rods Cancelled Platelet Estimate Cancelled Hypogranular Platelets Cancelled Clumped Platelets Cancelled Giant Platelets Cancelled Platelet Satelliting Cancelled RBC Morphology Cancelled Polychromasia Cancelled Hypochromasia Cancelled Poikilocytosis Cancelled Basophilic Stippling Cancelled Anisocytosis Cancelled Microcytosis Cancelled Macrocytosis Cancelled Spherocytes Cancelled Pappenheimer Bodies Cancelled Sickle Cells Cancelled Target Cells Cancelled Tear Drop Cells Cancelled Ovalocytes Cancelled Stomatocytes Cancelled [place] Bodies Cancelled Echinocytes Cancelled Acanthocytes (Spur) Cancelled Rouleaux Cancelled RBC Agglutinates Cancelled Schistocytes Cancelled RBC Morph Comment Cancelled Sezary Cell Cancelled Sodium 137 (136-145) mmol/L Potassium 4.1 (3.5-5.1) mmol/L Chloride 102 (98-107) mmol/L Carbon Dioxide 25 (21-32) mmol/L Anion Gap 10 (3-11) BUN 7 (6-23) mg/dl Creatinine 0.67 (0.6-1.2) mg/dl Est Cr Clr Drug Dosing 64.1 ml/min Est GFR ( Amer) 99.0 ml/min Est GFR (Non-Af Amer) 85.4 ml/min BUN/Creatinine Ratio 10.4 (10-20) Glucose 98 (70-99(Fasting)) mg/dl Calcium 9.8 (8.5-10.1) mg/dl Total Bilirubin 0.6 (0.2-1.0) mg/dl AST 16 (13-39) U/L ALT 7 (7-52) U/L Alkaline Phosphatase 120 H (34-104) U/L Troponin I < 0.03 (0-0.04) ng/ml Total Protein 7.5 (6.0-8.3) gm/dl Albumin 4.5 (3.4-5.0) gm/dl Globulin 3.0 (2.5-4.0) gm/dl Albumin/Globulin Ratio 1.5 (0.9-2) SARS-CoV-2, RNA, NAAT NEGATIVE (NEGATIVE) 05/27/21 Range/Units 13:04 WBC 6.10 RBC 4.80 Hgb 14.8 Hct 43.3 MCV 90.2 MCH 30.8 MCHC 34.2 RDW Std Deviation 42.7 RDW Coeff of Nanette 13.0 Plt Count 232 MPV 10.2 Immature Gran % (Auto) 0.3 Neut % (Auto) 65.5 Lymph % (Auto) 28.0 [place] % (Auto) 5.6 Eos % (Auto) 0.3 Baso % (Auto) 0.3 Neut # (Auto) 3.99 Lymph # (Auto) 1.71 [place] # (Auto) 0.34 Eos # (Auto) 0.02 Baso # (Auto) 0.02 Immature Gran # (Auto) 0.02 Absolute Nucleated RBC Nucleated RBC % (auto) Neutrophils % (Manual) Band Neutrophils % Lymphocytes % (Manual) Prolymphocyte % Reactive Lymphs % (Man) Monocytes % (Manual) Eosinophils % (Manual) Basophils % (Manual) Metamyelocytes % (Man) Myelocytes % (Man) Promyelocytes % (Man) Blast Cells % (Manual) Plasma Cell % (Manual) Other Cells % Nucleated RBC % Neutrophils # (Manual) Band Neutrophils # Total Absolute Neuts Lymphocytes # (Manual) Prolymphocyte # Reactive Lymphs # Total Abs Lymphocytes Monocytes # (Manual) Eosinophils # (Manual) Basophils # (Manual) Metamyelocytes # (Man) Myelocytes # (Manual) Promyelocytes # (Man) Blast Cells # (Man) Plasma Cell # (Manual) Other Cells # Nucleated RBCs # (Man) Hypersegmented Neuts Hyposegmented Neuts Hypogranular Neuts Large Granular Lymphs # Lrg Granular Lymphs Hairy Cells Smudge Cells Toxic Granulation Toxic Vacuolation Dohle Bodies Mati Rods Platelet Estimate Hypogranular Platelets Clumped Platelets Giant Platelets Platelet Satelliting RBC Morphology Polychromasia Hypochromasia Poikilocytosis Basophilic Stippling Anisocytosis Microcytosis Macrocytosis Spherocytes Pappenheimer Bodies Sickle Cells Target Cells Tear Drop Cells Ovalocytes Stomatocytes [place] Bodies Echinocytes Acanthocytes (Spur) Rouleaux RBC Agglutinates Schistocytes RBC Morph Comment Sezary Cell Sodium (136-145) mmol/L Potassium (3.5-5.1) mmol/L Chloride (98-107) mmol/L Carbon Dioxide (21-32) mmol/L Anion Gap (3-11) BUN (6-23) mg/dl Creatinine (0.6-1.2) mg/dl Est Cr Clr Drug Dosing ml/min Est GFR ( Amer) ml/min Est GFR (Non-Af Amer) ml/min BUN/Creatinine Ratio (10-20) Glucose (70-99(Fasting)) mg/dl Calcium (8.5-10.1) mg/dl Total Bilirubin (0.2-1.0) mg/dl AST (13-39) U/L ALT (7-52) U/L Alkaline Phosphatase (34-104) U/L Troponin I (0-0.04) ng/ml Total Protein (6.0-8.3) gm/dl Albumin (3.4-5.0) gm/dl Globulin (2.5-4.0) gm/dl Albumin/Globulin Ratio (0.9-2) SARS-CoV-2, RNA, NAAT (NEGATIVE) Imaging Data Radiologist's Impression: Chest X-Ray 05/27/21 11:57 XR chest 1V portable CLINICAL HISTORY: Atypical chest pain TECHNIQUE: Single frontal radiograph of the chest was obtained. Comparison: Comparison is made to chest one view 11/23/2020 FINDINGS: Dual lead pacemaker is seen. The cardiomediastinal silhouette is normal. The zoran gs are clear. No evidence of pleural effusion or pneumothorax. IMPRESSION: No acute chest disease. ACT 112: Negative or not required by law. Electronically signed by: Angelito Galicia M.D. 05/27/2021 12:40 PM ECG Data Attestation: I personally reviewed and interpreted this ECG as follows: Indication: + chest pain Rate (beats per minute): 64 Rhythm: + other (Atrial paced rhythm) ECG [place]: + Normal ECG ST segments: no ST elevation ECG Findings: no PVCs Comparison ECG Date: from (November 24, 2020) Change: no significant change MDM Narrative I did evaluate the patient as noted above. The patient is presenting with chest discomfort radiating to her back as well as her left arm. She has a history of angina and 2 cardiac stents. She became diaphoretic today with the chest discomfort. She is currently not having any chest discomfort but does state that she feels very weak. IV access was established. I did place an order for continuous cardiac monitoring. The monitor showed an atrial paced rhythm at a rate of 70 bpm. I did order and personally review the patient's 12-lead EKG as described above. She has a paced rhythm without any acute ischemic changes. I did order and personally reviewed the images of the patient's chest x-ray as described above. I did order and review the patient's blood work as noted in the electronic medical record. CBC and electrolytes are unremarkable. LFTs show a slight elevation of the alk phos at 120 but are otherwise normal. Troponin is negative. I did reassess the patient. I did discuss the test r esults with her. At this time I did explain that we cannot rule out a cardiac etiology for her symptoms and therefore recommended hospitalization for repeat cardiac biomarkers. She was agreeable. Screening COVID test was negative. I did discuss the case with the hospitalist and supervisor case loading. Impression & Plan Chest tightness Discharge Plan Visit Data Chief Complaint: Weakness Stated Complaint: CHEST TIGHTNESS, LIGHTHEADED, FATIGUE, WEAKNESS ED Provider: Akash Black Discharge Problem: Chest tightness Patient Disposition: Admitted As Inpatient Discharge Instructions Interventions: ED Discharge Assessment Last Done: 05/27/21 15:17
--- NOTE | 2021-05-27 12:41 | XRay Report ---
XR chest 1V portable CLINICAL HISTORY: Atypical chest pain TECHNIQUE: Single frontal radiograph of the chest was obtained. Comparison: Comparison is made to chest one view 11/23/2020 FINDINGS: Dual lead pacemaker is seen. The cardiomediastinal silhouette is normal. The lungs are clear. No evid ence of pleural effusion or pneumothorax. IMPRESSION: No acute chest disease. ACT 112: Negative or not required by law. Electronically signed by: Angelito Galicia M.D. 05/27/2021 12:40 PM
[2021-05-27 12:51] LABS: Alanine Aminotransferase 7 U/L (7-52); Albumin Globulin Ratio 1.5 (0.9-2); Albumin Level 4.5 gm/dl (3.4-5.0); Alkaline Phosphatase 120 U/L (34-104); Anion Gap 10 (3-11); Aspartate Aminotransferase 16 U/L (13-39); BUN Creatinine Ratio 10.4 (10-20); Bilirubin,Total 0.6 mg/dl (0.2-1.0); Blood Urea Nitrogen 7 mg/dl (6-23); Calcium 9.8 mg/dl (8.5-10.1); Carbon Dioxide 25 mmol/L (21-32); Chloride 102 mmol/L (98-107); Creatinine Clr Calc Pharmacy 64.1 ml/min; Est GFR (Non-African American) 85.4 ml/min; Glucose 98 mg/dl (70-99(Fasting)); Potassium 4.1 mmol/L (3.5-5.1); Sodium 137 mmol/L (136-145); Total Protein 7.5 gm/dl (6.0-8.3)
[2021-05-27 12:54] LABS: Troponin I < 0.03 ng/ml (0-0.04)
[2021-05-27 13:32] LABS: Basophils # (auto) 0.02 K/uL (0-0.2); Basophils % (auto) 0.3 %; Eosinophils # (auto) 0.02 K/uL (0-0.5); Eosinophils % (auto) 0.3 %; Hematocrit (blood only) 43.3 % (37-47); Hemoglobin 14.8 g/dL (12.0-16.0); Immature Granulocytes # (auto) 0.02 K/uL (0.00-0.02); Immature Granulocytes % (auto) 0.3 %; Lymphocytes # (auto) 1.71 K/uL (1.2-3.4); Mean Corpuscular Hemoglobin 30.8 pg (25-34); Mean Corpuscular Hgb Conc 34.2 g/dL (32-36); Mean Corpuscular Volume 90.2 fL (80-100); Mean Platelet Volume 10.2 fL (7.4-10.4); Monocytes # (auto) 0.34 K/uL (0.11-0.59); Monocytes % (auto) 5.6 %; Neutrophils # (auto) 3.99 K/uL (1.4-6.5); Neutrophils % (auto) 65.5 %; Platelet Count 232 K/uL (130-400); RDW Standard Deviation 42.7 fL (36.4-46.3)
--- NOTE | 2021-05-27 14:26 | History & Physical Report ---
Date of Service May 27, 2021 Assessment & Plan (1) Chest pain: Plan: - Admit to tele for observation for r/o - Trend cardiac biomarkers, initial set was negative - EKG reviewed as above - Check 2 D echo: Last echo was completed on 02/03/2021 showing EF of 55 to 59%, mild aortic valve sclerosis, mild aortic regurg, trace mitral regurg, mild tricuspid regurg - If negative enzymes can consider a stress test tomorrow morning. Pt would require a dobutamine stress test no treadmill. - Consult cardiology with unstable angina, hx of cardiac stents, possible needs for stress test - Cardiac stenting done May 2018 KIERSTEN x 1 in RCA and Oct 2018 KIERSTEN x 1 in ostial RCA. - PT/OT consulted (2) Ischemic heart disease, chronic: Plan: - Hx of such, follows with [facility] cardiology as an outpatient - Continue antihypertensive meds as above - Cont asa 81 mg daily and statin therapy (3) HTN (hypertension): Plan: - Continue Atenolol 50 mg twice daily, Cardizem 120 daily, hold HCTZ 25 mg as she uses this prn for edema and does not have any swelling presently. (4) SSS (sick sinus syndrome): (5) Pacemaker: Plan: - Recently she has routine pacemaker interrogation was done on 05/21/2021 which showed atrial paced and RV sensed. Normal dual chamber pacemaker function. (6) IBS (irritable bowel syndrome): Plan: - hx of such (7) GERD (gastroesophageal reflux disease): Plan: - protonix 40 mg DVT ppx: teds, scds, heparin subq CODE: FULL - pt does not want life prolonging measures or heroic measures Dispo: From home, likely to remain in hospital x 1 night and d/c tomorrow pending troponins and cardiology recommendations. (8) Anxiety: Plan: - May continue lorazepam for anxiety - uses 1-3 times per day, no CBD gummies in the hospital so will hold. - Counseling/therapy would be good for this patient after discharge with the recent of a loved one. Plan: Attending Addendum: care coordinated with CELIA Sharita Gibbs please refer to her notes for full details, I agree with her notes patient seen and examined, records reviewed by myself as well on exam, patient no other symptoms VS noted and reviewed oriented , not in distress, speaks in sentences with no effort nor accessory muscle use normal rate, regular rhythm, no murmurs clear breath sounds bilaterally non distended, soft, nontender no bipedal edema, erythema, warmth no neuro deficits all labs noted and reviewed including below ASSESSMENT AND PLAN CHEST PAIN R/O ACS HISTORY OF CAD, S/P STENT SICK SINUS SYNDROME S/P PACEMAKER negative trop, 2 more sets pending EKG no signs of ischemia echo: pending continue ASA, Atenolol Cardio consulted other diagnoses and plan of care as per CELIA Sharita Donis's notes Josh Galindo MD History of Present Illness Chief Complaint: Chest tightness, generalized weakness Primary Care Provider: Anders Crawley DO This is a 75-year-old female with PMHx of ischemic heart disease, HTN, HLD, sick sinus syndrome status post pacemaker insertion, history of cardiac stent x 2 in 2019, anxiety, GERD, and IBS. She has noticed worsening chest pressure shooting through to the left side of her back, left arm discomfort, and feeling "off" with weakness and fatigue for the past 24 hours. She admits to having some shortness of breath during these timeframes as well intermittently, and sometimes occurs while she is at rest. She admits to large amount of stress at home with a cousin with who yesterday. She becomes tearful during our conversation, saying she she feels very saddened by all of this and having to support her other cousins and family members. She has attempted to calm herself down by using Ativan as needed and CBD Gummies which she says helps, last used yesterday. She has followed with [facility] cardiology, as an outpatient. She has previously underwent stress testing but states she cannot perform a treadmill stress test. She was being seen by gynecology earlier today when she reported chest pain going through her back, weakness and feeling off this morning and needing to lie down twice. At that point they were recommended that she come to the ER. Pt hasn't eaten anything yet today and is requesting food. Her is with her at bedside who she fondly calls her "boyfriend x 58 years", and supports the history. Allergies Allergy/AdvReac Type Severity Reaction Status Date / Time chlorhexidine Allergy Intermediate ITCHY RASH Verified 05/27/21 14:59 latex Allergy Mild Rash Verified 05/27/21 14:59 adhesive Allergy Rash Verified 05/27/21 14:59 epinephrine AdvReac Intermediate HEART RACES Verified 05/27/21 14:59 escitalopram AdvReac Intermediate ITCHING/SAIDA Verified 05/27/21 14:59 MACI paroxetine [From Paxil] AdvReac Intermediate FOGGY/VISUAL Verified 05/27/21 14:59 IMPAIRMENT alprazolam AdvReac Unknown HEADACHE Verified 05/27/21 14:59 Home Medications Medication Instructions Recorded Confirmed Type acetaminophen 650 mg 650 mg PO DIRECTED PRN 06/16/18 05/27/21 History tablet,extended release (Tylenol Arthritis Pain) albuterol sulfate 90 mcg/actuation 2 puff INHALATION Q4 PRN 06/16/18 05/27/21 History aerosol inhaler (Proventil HFA) aspirin 81 mg tablet,delayed 81 mg PO HS 06/16/18 05/27/21 History release (Aspirin Low Dose) buspirone 5 mg tablet 5 mg PO BID 06/16/18 05/27/21 History cholecalciferol (vitamin D3) 50 2,000 unit PO QAM 06/16/18 05/27/21 History mcg (2,000 unit) capsule (Vitamin D3) dicyclomine 10 mg capsule 10 mg PO BIDM 06/16/18 05/27/21 History estradiol 0.5 mg tablet (Estrace) 0.5 mg PO 4XWK 06/16/18 05/27/21 History hydrochlorothiazide 25 mg tablet 12.5 mg PO QAM PRN 06/16/18 05/27/21 History loperamide 2 mg capsule (Imodium 2 mg PO DIRECTED PRN 06/16/18 05/27/21 History A-D) lorazepam 0.5 mg tablet (Ativan) 0.5 mg PO TID PRN 06/16/18 05/27/21 History nitroglycerin 0.4 mg sublingual 0.4 mg SUBLINGUAL DIRECTED PRN 06/16/18 05/27/21 History tablet (Nitrostat) simvastatin 40 mg tablet (Zocor) 20 mg PO HS 06/16/18 05/27/21 History pantoprazole 40 mg tablet,delayed 40 mg PO QAM 05/07/19 05/27/21 History release (Protonix) atenolol 50 mg tablet (Tenormin) 50 mg PO AMHS 08/01/19 05/27/21 History Cbd Gummies 0 tab PO DIRECTED 11/23/20 05/27/21 History colestipol 1 gram tablet (Colestid) 1 g PO BID 11/23/20 05/27/21 History cyanocobalamin (vitamin B-12) 1,000 mcg PO QDD 11/23/20 05/27/21 History 1,000 mcg tablet (Vitamin B-12) Lactobacillus rhamnosus GG 15 1 cap PO BIDM 12/23/20 05/27/21 History billion cell sprinkle capsule (Culturelle) diltiazem HCl 120 mg capsule,24 120 mg PO QAM 12/23/20 05/27/21 History hr,extended release potassium gluconate 595 mg (99 mg) 595 mg PO DAILY 02/22/21 05/27/21 History tablet clotrimazole-betamethasone 1 1 applic TOPICAL BID 05/27/21 05/27/21 History %-0.05 % topical cream conjugated estrogens 0.625 mg/gram 0.3125 mg VAGINAL 2XWK 05/27/21 05/27/21 History vaginal cream desonide 0.05 % lotion 1 applic TOPICAL BID PRN 05/27/21 05/27/21 History diclofenac sodium 1 % topical gel 2 g TOPICAL BID PRN 05/27/21 05/27/21 History fluocinolone 0.01 % scalp oil and 1 ea TOPICAL DAILY PRN 05/27/21 05/27/21 History shower cap guar gum 1 tbsp PO TIDM 05/27/21 05/27/21 History ibuprofen 200 mg tablet 400 mg PO DIRECTED PRN 05/27/21 05/27/21 History lifitegrast 5 % eye drops in a 1 drp OPHTHALMIC (EYE) BID 05/27/21 05/27/21 History dropperette (Xiidra) magnesium oxide 0 mg PO DAILY 05/27/21 05/27/21 History ondansetron 4 mg disintegrating 4 mg SUBLINGUAL Q6H PRN 05/27/21 05/27/21 History tablet sucralfate 1 gram tablet (Carafate) 1 g PO ACHS PRN 05/27/21 05/27/21 History Past Med/Surg History Medical History Anxiety Asthma rare use of PRN inh CAD (coronary artery disease) per outpatient cardio note: History of anterior wall AK at age 45, PTCA of the LAD at that time. Abnormal stress testing in March 2004 with repeat catheterization on 04-09-04 demonstrating nonobstructive CAD with a total chronic occlusion of a 2nd diagonal branch and mild CAD elsewhere. Cardiac catheterization in July 2016 demonstrating the chronic total occlusion of a diagonal branch with [id number] collaterals, 30% ostial RCA stenosis, and 30% mid RCA stenosis. LVEDP normal, 8 mmHg. Presentation to [facility] May 2018 with unstable angina. Diagnostic cardiac catheterization with severe single-vessel coronary artery disease with an 80% mid RCA stenosis for which she underwent PCI, 3.0 x 18 mm drug-eluting stent implantation by Dr. Mclaughlin Admission to [facility] in October 2018 with unstable angina, status post November 16, 2018 cardiac catheterization which demonstrated a severe, moderately calcified, 70% ostial right coronary artery stenosis with catheter dampening noted on engagement, status post successful PCI the ostial RCA with a single 3.0 x 12 Xience Eda drug-eluting stent. The previously placed mid RCA stent was noted to be patent. Chronic diagonal occlusion with collaterals. DDD (degenerative disc disease) Diverticulosis of colon Dry eye Encounter for pre-operative examination GERD (gastroesophageal reflux disease) History of Clostridioides difficile infection 11/2020; pt reports symptoms resolved. History of myocardial infarction (03/01/11) "anterior wall AK" at age 45 History of recent hospitalization 11/2020; c.diff, cholecystitis HLD (hyperlipidemia) HTN (hypertension) IBS (irritable bowel syndrome) On anticoagulant therapy Osteoarthritis Pacemaker placed approx 5 years ago; SSS; medtronic - checked within last 2 mo SSS (sick sinus syndrome) Surgical History H/O exploratory laparotomy "02/05/15 Dr. Marques Rodriguez" History of cardiac catheterization 2019 [place] - 2 stents placed (1 stent x 2 procedures) age 45 - angioplasty History of cataract extraction History of colonoscopy History of esophagogastroduodenoscopy (EGD) History of hysterectomy History of mandibular surgery History of Faisal fundoplication "02/05/[address] Marques Rodriguez" History of PTCA History of tonsillectomy and adenoidectomy History of tooth extraction S/P repair of paraesophageal hernia "02/04/15 complicated by esophageal perforation" Family History Father Lung cancer Mother Hypertension Other No family history of adverse response to anesthesia Social History Smoking Status: Former smoker Tobacco Type: Cigarettes Smoking End Date: 5 or 6 years ago; Second Hand Exposure: No; Do You Dip or Chew Tobacco: No; Tobacco Cessation Education Requested by Patient: No Hx Alcohol Use: No Hx Substance Use: No (CBD/THC gummies) Preferred Language: Icelandic Communication Ability: Effective Carpenter Refrigerator Required: No Beliefs That Will Affect Care: None marital status: Current Living Situation: Spouse Current Living Situation Comment: 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 How many Children do You have: 2 Other Information That Helps Us Care for You: No Feels Safe at Home: Yes Safety Concerns: Feels Safe At This Time Assistive Devices: Denture - Upper, Denture - Lower and Glasses Review of Systems Review of Systems: Constitutional: No fever, sweats or chills Eyes: No diplopia, no worsening or blurred vision ENT: normal hearing, no trouble swallowing Respiratory: No cough, sputum, + occasional dyspnea at rest and on exertion Cardiovascular: As per HPI, Currently no chest pain, tightness or palpitations Abdomen: No pain, nausea, vomiting, diarrhea or constipation Musculoskeletal: No joint pain, calf pain, swelling Neurologic: No weakness, numbness/tingling, or balance problems Psychiatric: + significant anxiety worsened by the recent of her cousin yesterday Skin: No rash or itch, erythema of feet is chronic Physical Exam Physical Exam: General: awake, alert, no apparent distress, + anxious Head: Normocephalic, atraumatic ENT: PERRL, EOMI, no pharyngeal exudate, mucous membranes moist Chest: Clear to auscultation, on room air, no adventitious breath sounds Cardiac: Regular rate and rhythm, no murmur, no JVD, normal peripheral pulses, good capillary refill Back: point tenderness with muscle strain involving erector spinae muscles near T7 on left side, Abdominal: NABS x 4 quadrants, soft, nondistended, nontender to palpation, no rebound or guarding Extremities: Normal inspection, no peripheral edema or erythema, Chronic venous changes of feet bilaterally, calfs nontender to palpation Psych: saddened mood anxious and tearful affect at times. Neuro: AAO x 3, strength intact bilaterally and rated 5/5, no motor deficits, speech is clear, no peripheral sensory deficits Results & Data Results & Data ([facility]) Vital Signs (Past 12 Hours) Vital Signs Temp Pulse Resp BP Pulse Ox 05/27/21 13:30 60 18 05/27/21 13:20 64 20 05/27/21 13:10 60 18 05/27/21 13:01 60 23 131/74 05/27/21 13:00 61 13 05/27/21 12:50 60 18 97 05/27/21 12:40 61 17 98 05/27/21 12:30 62 20 150/71 H 98 05/27/21 12:20 62 18 98 05/27/21 12:10 60 12 99 05/27/21 12:00 63 17 158/77 H 99 05/27/21 11:59 64 17 05/27/21 11:41 36.4 C L 76 20 128/84 98 Laboratory Results 05/27/21 05/27/21 05/27/21 13:04 12:11 12:11 WBC 6.10 Cancelled RBC 4.80 Cancelled Hgb 14.8 Cancelled Hct 43.3 Cancelled MCV 90.2 Cancelled MCH 30.8 Cancelled MCHC 34.2 Cancelled RDW Std Deviation 42.7 Cancelled RDW Coeff of Nanette 13.0 Cancelled Plt Count 232 Cancelled MPV 10.2 Cancelled Immature Gran % (Auto) 0.3 Cancelled Neut % (Auto) 65.5 Cancelled Lymph % (Auto) 28.0 Cancelled Louisa % (Auto) 5.6 Cancelled Eos % (Auto) 0.3 Cancelled Baso % (Auto) 0.3 Cancelled Neut # (Auto) 3.99 Cancelled Lymph # (Auto) 1.71 Cancelled Louisa # (Auto) 0.34 Cancelled Eos # (Auto) 0.02 Cancelled Baso # (Auto) 0.02 Cancelled Immature Gran # (Auto) 0.02 Cancelled Absolute Nucleated RBC Cancelled Nucleated RBC % (auto) Cancelled Neutrophils % (Manual) Cancelled Band Neutrophils % Cancelled Lymphocytes % (Manual) Cancelled Prolymphocyte % Cancelled Reactive Lymphs % (Man) Cancelled Monocytes % (Manual) Cancelled Eosinophils % (Manual) Cancelled Basophils % (Manual) Cancelled Metamyelocytes % (Man) Cancelled Myelocytes % (Man) Cancelled Promyelocytes % (Man) Cancelled Blast Cells % (Manual) Cancelled Plasma Cell % (Manual) Cancelled Other Cells % Cancelled Nucleated RBC % Cancelled Neutrophils # (Manual) Cancelled Band Neutrophils # Cancelled Total Absolute Neuts Cancelled Lymphocytes # (Manual) Cancelled Prolymphocyte # Cancelled Reactive Lymphs # Cancelled Total Abs Lymphocytes Cancelled Monocytes # (Manual) Cancelled Eosinophils # (Manual) Cancelled Basophils # (Manual) Cancelled Metamyelocytes # (Man) Cancelled Myelocytes # (Manual) Cancelled Promyelocytes # (Man) Cancelled Blast Cells # (Man) Cancelled Plasma Cell # (Manual) Cancelled Other Cells # Cancelled Nucleated RBCs # (Man) Cancelled Hypersegmented Neuts Cancelled Hyposegmented Neuts Cancelled Hypogranular Neuts Cancelled Large Granular Lymphs Cancelled # Lrg Granular Lymphs Cancelled Hairy Cells Cancelled Smudge Cells Cancelled Toxic Granulation Cancelled Toxic Vacuolation Cancelled Dohle Bodies Cancelled Mati Rods Cancelled Platelet Estimate Cancelled Hypogranular Platelets Cancelled Clumped Platelets Cancelled Giant Platelets Cancelled Platelet Satelliting Cancelled RBC Morphology Cancelled Polychromasia Cancelled Hypochromasia Cancelled Poikilocytosis Cancelled Basophilic Stippling Cancelled Anisocytosis Cancelled Microcytosis Cancelled Macrocytosis Cancelled Spherocytes Cancelled Pappenheimer Bodies Cancelled Sickle Cells Cancelled Target Cells Cancelled Tear Drop Cells Cancelled Ovalocytes Cancelled Stomatocytes Cancelled Ellis-Tindall Bodies Cancelled Echinocytes Cancelled Acanthocytes (Spur) Cancelled Rouleaux Cancelled RBC Agglutinates Cancelled Schistocytes Cancelled RBC Morph Comment Cancelled Sezary Cell Cancelled Sodium 137 Potassium 4.1 Chloride 102 Carbon Dioxide 25 Anion Gap 10 BUN 7 Creatinine 0.67 Est Cr Clr Drug Dosing 64.1 Est GFR ( Amer) 99.0 Est GFR (Non-Af Amer) 85.4 BUN/Creatinine Ratio 10.4 Glucose 98 Calcium 9.8 Total Bilirubin 0.6 AST 16 ALT 7 Alkaline Phosphatase 120 H Troponin I < 0.03 Total Protein 7.5 Albumin 4.5 Globulin 3.0 Albumin/Globulin Ratio 1.5 SARS-CoV-2, RNA, NAAT 05/27/21 12:05 WBC RBC Hgb Hct MCV MCH MCHC RDW Std Deviation RDW Coeff of Nanette Plt Count MPV Immature Gran % (Auto) Neut % (Auto) Lymph % (Auto) Louisa % (Auto) Eos % (Auto) Baso % (Auto) Neut # (Auto) Lymph # (Auto) Louisa # (Auto) Eos # (Auto) Baso # (Auto) Immature Gran # (Auto) Absolute Nucleated RBC Nucleated RBC % (auto) Neutrophils % (Manual) Band Neutrophils % Lymphocytes % (Manual) Prolymphocyte % Reactive Lymphs % (Man) Monocytes % (Manual) Eosinophils % (Manual) Basophils % (Manual) Metamyelocytes % (Man) Myelocytes % (Man) Promyelocytes % (Man) Blast Cells % (Manual) Plasma Cell % (Manual) Other Cells % Nucleated RBC % Neutrophils # (Manual) Band Neutrophils # Total Absolute Neuts Lymphocytes # (Manual) Prolymphocyte # Reactive Lymphs # Total Abs Lymphocytes Monocytes # (Manual) Eosinophils # (Manual) Basophils # (Manual) Metamyelocytes # (Man) Myelocytes # (Manual) Promyelocytes # (Man) Blast Cells # (Man) Plasma Cell # (Manual) Other Cells # Nucleated RBCs # (Man) Hypersegmented Neuts Hyposegmented Neuts Hypogranular Neuts Large Granular Lymphs # Lrg Granular Lymphs Hairy Cells Smudge Cells Toxic Granulation Toxic Vacuolation Dohle Bodies Mati Rods Platelet Estimate Hypogranular Platelets Clumped Platelets Giant Platelets Platelet Satelliting RBC Morphology Polychromasia Hypochromasia Poikilocytosis Basophilic Stippling Anisocytosis Microcytosis Macrocytosis Spherocytes Pappenheimer Bodies Sickle Cells Target Cells Tear Drop Cells Ovalocytes Stomatocytes Ellis-Tindall Bodies Echinocytes Acanthocytes (Spur) Rouleaux RBC Agglutinates Schistocytes RBC Morph Comment Sezary Cell Sodium Potassium Chloride Carbon Dioxide Anion Gap BUN Creatinine Est Cr Clr Drug Dosing Est GFR ( Amer) Est GFR (Non-Af Amer) BUN/Creatinine Ratio Glucose Calcium Total Bilirubin AST ALT Alkaline Phosphatase Troponin I Total Protein Albumin Globulin Albumin/Globulin Ratio SARS-CoV-2, RNA, NAAT NEGATIVE Diagnostic Findings Chest X-Ray 05/27/21 11:57 XR chest 1V portable CLINICAL HISTORY: Atypical chest pain TECHNIQUE: Single frontal radiograph of the chest was obtained. Comparison: Comparison is made to chest one view 11/23/2020 FINDINGS: Dual lead pacemaker is seen. The cardiomediastinal silhouette is normal. The lungs are clear. No evidence of pleural effusion or pneumothorax. IMPRESSION: No acute chest disease. ACT 112: Negative or not required by law. Electronically signed by: Angelito Galicia M.D. 05/27/2021 12:40 PM ECG Additional Comments: 27-MAY-2021 11:57:55 [facility]-EDSTAT ROUTINE RETRIEVAL Atrial-paced rhythm with prolonged AV conduction Abnormal ECG When compared with ECG of 24-NOV-2020 04:36, No significant change was found 25mm/[id number] 241CID: 16Referred by: REFERRED SELF Unconfirmed Vent. rate 64 BPM WA interval 238 ms QRS duration 88 ms QT/QTc 412/425 ms (1) GERD (gastroesophageal reflux disease) Esophagitis presence: esophagitis presence not specified Qualified Code(s): K21.9 - Gastro-esophageal reflux disease without esophagitis (2) Chest pain Chest pain type: other chest pain Qualified Code(s): R07.89 - Other chest pain (3) HTN (hypertension) Hypertension type: essential hypertension Qualified Code(s): I10 - Essential (primary) hypertension (4) IBS (irritable bowel syndrome) Irritable bowel syndrome type: with diarrhea Qualified Code(s): K58.0 - Irritable bowel syndrome with diarrhea
--- NOTE | 2021-05-27 15:55 | Electrocardiogram Report ---
Test Reason : Blood Pressure : / mmHG Vent. Rate : 064 BPM Atrial Rate : 064 BPM P-R Int : 238 ms QRS Dur : 088 ms QT Int : 412 ms P-R-T Axes : 023 031 025 degrees QTc Int : 425 ms Atrial-paced rhythm with prolonged AV conduction Abnormal ECG When compared with ECG of 24-NOV-2020 04:36, No significant change was found Confirmed by Fausto Ordaz ([id number]) on 05/27/2021 3:55:23 PM Referred By: REFERRED SELF Confirmed By:Fausto Ordaz
[2021-05-27] MEDS ORDERED: ACETAMINOPHEN 325 MG TAB PO PRN (16:41)
[2021-05-27] MEDS ORDERED: ALBUTEROL HFA 8 GM INHALER INH PRN (16:41)
[2021-05-27] MEDS ORDERED: DICLOFENAC SOD 1% GEL 100 GM TUBE EXT PRN (16:41)
[2021-05-27] MEDS ORDERED: DICYCLOMINE HCL 10 MG CAP PO PRN (16:41)
[2021-05-27] MEDS ORDERED: SUCRALFATE 1 GM TAB PO PRN (16:41)
[2021-05-27] MEDS ORDERED: ONDANSETRON INJ 2 MG/ML 2 ML VIAL IV PRN (16:41)
[2021-05-27] MEDS ORDERED: LORazepam 0.5 MG TAB PO PRN (16:41)
[2021-05-27] MEDS ORDERED: GUAR GUM PO SCH (17:00)
[2021-05-27] MEDS: CYANOCOBALAMIN (B-12) 500 MCG TABLET PO SCH (18:43)
[2021-05-27] MEDS: ATENOLOL 50 MG TABLET PO SCH (20:18)
[2021-05-27] MEDS: busPIRone 5 MG TAB PO SCH (20:18)
[2021-05-27] MEDS ORDERED: SIMVASTATIN 40 MG TAB PO SCH (21:00)
[2021-05-27] MEDS ORDERED: ASPIRIN 81 MG ECTAB PO SCH (21:00)
[2021-05-27] MEDS: HEPARIN SOD 5,000 UNIT/0.5 ML VIAL SQ SCH (21:56)
[2021-05-27] MEDS: COLESTIPOL HCL 1 GM TAB PO SCH (22:52)
[2021-05-28] MEDS: ORDER AWAITING ACTION: Lifitegrast [Xiidra] 5 % Dropperette SCH ×2 (00:10→09:12)
[2021-05-28 07:10] LABS: Hematocrit (blood only) 37.9 % (37-47); Hemoglobin 12.8 g/dL (12.0-16.0); Mean Corpuscular Hemoglobin 30.4 pg (25-34); Mean Corpuscular Hgb Conc 33.8 g/dL (32-36); Mean Platelet Volume 10.2 fL (7.4-10.4); Platelet Count 229 K/uL (130-400); RDW Coefficient of Variation 13.2 % (11.5-14.5); RDW Standard Deviation 43.5 fL (36.4-46.3); Red Blood Count 4.21 M/uL (4.2-5.4); White Blood Count 4.75 K/uL (4.8-10.8)
[2021-05-28 07:31] LABS: Troponin I < 0.03 ng/ml (0-0.04)
[2021-05-28 07:33] LABS: Alanine Aminotransferase 6 U/L (7-52); Albumin Globulin Ratio 1.3 (0.9-2); Albumin Level 3.6 gm/dl (3.4-5.0); Alkaline Phosphatase 100 U/L (34-104); Anion Gap 5 (3-11); Aspartate Aminotransferase 13 U/L (13-39); BUN Creatinine Ratio 13.1 (10-20); Bilirubin,Total 0.5 mg/dl (0.2-1.0); Blood Urea Nitrogen 8 mg/dl (6-23); Calcium 8.2 mg/dl (8.5-10.1); Carbon Dioxide 27 mmol/L (21-32); Chloride 105 mmol/L (98-107); Chol HDL Ratio 2.4 (0-5); Cholesterol 167 mg/dl (0-200); Creatinine Clr Calc Pharmacy 73.9 ml/min; Est GFR (African American) 102.1 ml/min; Est GFR (Non-African American) 88.1 ml/min; Globulin 2.7 gm/dl (2.5-4.0); Glucose 90 mg/dl (70-99(Fasting)); HDL Cholesterol 70 mg/dl; LDL Cholesterol Calculated 66 mg/dl; Potassium 3.7 mmol/L (3.5-5.1); Sodium 137 mmol/L (136-145); Total Protein 6.3 gm/dl (6.0-8.3); Triglycerides 155 mg/dl (0-150); VLDL Cholesterol 31 mg/dl (0-30)
[2021-05-28 07:58] LABS: Estimated Average Glucose 111 mg/dl; Hemoglobin A1C 5.5 % (4.5-5.6)
[2021-05-28] MEDS: busPIRone 5 MG TAB PO SCH (08:13)
[2021-05-28] MEDS: HEPARIN SOD 5,000 UNIT/0.5 ML VIAL SQ SCH (08:15)
--- NOTE | 2021-05-28 08:42 | Electrocardiogram Report ---
Test Reason : Blood Pressure : / mmHG Vent. Rate : 066 BPM Atrial Rate : 066 BPM P-R Int : 242 ms QRS Dur : 088 ms QT Int : 432 ms P-R-T Axes : 004 039 018 degrees QTc Int : 452 ms Atrial-paced rhythm with prolonged AV conduction with Premature ventricular complexes Abnormal ECG When compared with ECG of 27-MAY-2021 11:57, Premature ventricular complexes now present Confirmed by Fausto Ordaz ([id number]) on 05/28/2021 8:42:03 AM Referred By: REFERRED SELF Confirmed By:Fausto Ordaz
[2021-05-28] MEDS ORDERED: dilTIAZem ER 120 MG CAPCR PO SCH (09:00)
[2021-05-28] MEDS ORDERED: MAGNESIUM OXIDE 400 MG TAB PO SCH (09:00)
[2021-05-28] MEDS ORDERED: CHOLECALCIFEROL 1,000 UNITS 25 MCG TAB PO SCH (09:00)
[2021-05-28] MEDS ORDERED: CALCIUM POLYCARBOPHIL 625MG TAB PO SCH (09:00)
[2021-05-28] MEDS ORDERED: PANTOprazole 40 MG TAB PO SCH (09:00)
[2021-05-28] MEDS ORDERED: NON-FORMULARY MEDICATION (Potassium Gluconate 595 mg (99 mg) Tablet) PO SCH (09:00)
[2021-05-28] MEDS ORDERED: POTASSIUM CHLORIDE 10 MEQ TABCR PO SCH (09:00)
--- NOTE | 2021-05-28 09:56 | Cardiology Consultation ---
Date of Consultation May 28, 2021 Assessment & Plan (1) Anxiety: (2) Depression: (3) Pacemaker: (4) History of PTCA: This patient has a significant cardiac history however, I think her current symptoms are more related to extreme anxiety along with depression. Her cardiac markers are negative and her EKG is essentially unchanged. I do not believe any additional cardiac testing is indicated. I do believe that she would benefit from seeing a mental health provider to help treat her anxiety. History of Present Illness Attending Physician: Brett Carlson MD History of Present Illness This is a 75-year-old female well-known to cardiology with a history as outlined below. She has been under a great deal of stress and has a long history of anxiety as well as depression. She has been having family stress with the of her recent cousin. She also has a extensive gynecologic history and wears a pessary which has not been working for her and adding to her stress. She also has an extensive history of IBS which contributes to her anxiety. She presented with multiple somatic complaints prior to admission. Her cardiac markers have been negative and her EKG shows no acute changes. Past medical history: 1.History of anterior wall MT at age 45, PTCA of the LAD at that time. 2.Abnormal stress testing in March 2004 with repeat catheterization on 04-09-04 demonstrating nonobstructive CAD with a total chronic occlusion of a 2nd diagonal branch and mild CAD elsewhere. 3.Cardiac catheterization in July 2016 demonstrating the chronic total occlusion of a diagonal branch with [id number] collaterals, 30% ostial RCA stenosis, and 30% mid RCA stenosis. LVEDP normal, 8 mmHg. 4.Presentation to [facility] May 2018 with unstable angina. Diagnostic cardiac catheterization with severe single-vessel coronary artery disease with an 80% mid RCA stenosis for which she underwent PCI, 3.0 x 18 mm drug-eluting stent implantation by Dr. Mclaughlin 5.Admission to [facility] in October 2018 with unstable angina, status post November 16, 2018 cardiac catheterization which demonstrated a severe, moderately calcified, 70% ostial right coronary artery stenosis with catheter dampening noted on engagement, status post successful PCI the ostial RCA with a single 3.0 x 12 Xience Eda drug-eluting stent. The previously placed mid RCA stent was noted to be patent. Chronic diagonal occlusion with collaterals. 6.Admission to [facility] in April 2019 with chest pain, abnormal pharmacological stress testing leading to cardiac catheterization performed on 05/09/2019 - patent RCA stents; known chronic diagonal branch vessel occlusion. 1.Sick sinus syndrome status post November 03, 2017 dual-chamber pacemaker implantation 2.Hypertension 3.Hyperlipidemia 4.Obesity 5.Anxiety 6.Diverticulosis/diverticulitis 7.IBS 8.GERD 9.Hiatal hernia status post laparoscopic paraesophageal hernia repair with c omplicated postoperative course 10.Cholelithiasis- status post lap choly 12/2020 11.General osteoarthritis. Allergies Allergy/AdvReac Type Severity Reaction Status Date / Time chlorhexidine Allergy Intermediate ITCHY RASH Verified 05/27/21 14:59 latex Allergy Mild Rash Verified 05/27/21 14:59 adhesive Allergy Rash Verified 05/27/21 14:59 epinephrine AdvReac Intermediate HEART RACES Verified 05/27/21 14:59 escitalopram AdvReac Intermediate ITCHING/SAIDA Verified 05/27/21 14:59 MACI paroxetine [From Paxil] AdvReac Intermediate FOGGY/VISUAL Verified 05/27/21 14:59 IMPAIRMENT alprazolam AdvReac Unknown HEADACHE Verified 05/27/21 14:59 Home Medications Medication Instructions Recorded Confirmed Type acetaminophen 650 mg 650 mg PO DIRECTED PRN 06/16/18 05/27/21 History tablet,extended release (Tylenol Arthritis Pain) albuterol sulfate 90 mcg/actuation 2 puff INHALATION Q4 PRN 06/16/18 05/27/21 History aerosol inhaler (Proventil HFA) aspirin 81 mg tablet,delayed 81 mg PO HS 06/16/18 05/27/21 History release (Aspirin Low Dose) buspirone 5 mg tablet 5 mg PO BID 06/16/18 05/27/21 History cholecalciferol (vitamin D3) 50 2,000 unit PO QAM 06/16/18 05/27/21 History mcg (2,000 unit) capsule (Vitamin D3) dicyclomine 10 mg capsule 10 mg PO BIDM 06/16/18 05/27/21 History estradiol 0.5 mg tablet (Estrace) 0.5 mg PO 4XWK 06/16/18 05/27/21 History hydrochlorothiazide 25 mg tablet 12.5 mg PO QAM PRN 06/16/18 05/27/21 History loperamide 2 mg capsule (Imodium 2 mg PO DIRECTED PRN 06/16/18 05/27/21 History A-D) lorazepam 0.5 mg tablet (Ativan) 0.5 mg PO TID PRN 06/16/18 05/27/21 History nitroglycerin 0.4 mg sublingual 0.4 mg SUBLINGUAL DIRECTED PRN 06/16/18 05/27/21 History tablet (Nitrostat) simvastatin 40 mg tablet (Zocor) 20 mg PO HS 06/16/18 05/27/21 History pantoprazole 40 mg tablet,delayed 40 mg PO QAM 05/07/19 05/27/21 History release (Protonix) atenolol 50 mg tablet (Tenormin) 50 mg PO AMHS 08/01/19 05/27/21 History Cbd Gummies 0 tab PO DIRECTED 11/23/20 05/27/21 History colestipol 1 gram tablet (Colestid) 1 g PO BID 11/23/20 05/27/21 History cyanocobalamin (vitamin B-12) 1,000 mcg PO QDD 11/23/20 05/27/21 History 1,000 mcg tablet (Vitamin B-12) Lactobacillus rhamnosus GG 15 1 cap PO BIDM 12/23/20 05/27/21 History billion cell sprinkle capsule (Culturelle) diltiazem HCl 120 mg capsule,24 120 mg PO QAM 12/23/20 05/27/21 History hr,extended release potassium gluconate 595 mg (99 mg) 595 mg PO DAILY 02/22/21 05/27/21 History tablet clotrimazole-betamethasone 1 1 applic TOPICAL BID 05/27/21 05/27/21 History %-0.05 % topical cream conjugated estrogens 0.625 mg/gram 0.3125 mg VAGINAL 2XWK 05/27/21 05/27/21 History vaginal cream desonide 0.05 % lotion 1 applic TOPICAL BID PRN 05/27/21 05/27/21 History diclofenac sodium 1 % topical gel 2 g TOPICAL BID PRN 05/27/21 05/27/21 History fluocinolone 0.01 % scalp oil and 1 ea TOPICAL DAILY PRN 05/27/21 05/27/21 History shower cap guar gum 1 tbsp PO TIDM 05/27/21 05/27/21 History ibuprofen 200 mg tablet 400 mg PO DIRECTED PRN 05/27/21 05/27/21 History lifitegrast 5 % eye drops in a 1 drp OPHTHALMIC (EYE) BID 05/27/21 05/27/21 History dropperette (Xiidra) magnesium oxide 0 mg PO DAILY 05/27/21 05/27/21 History ondansetron 4 mg disintegrating 4 mg SUBLINGUAL Q6H PRN 05/27/21 05/27/21 History tablet sucralfate 1 gram tablet (Carafate) 1 g PO ACHS PRN 05/27/21 05/27/21 History Patient History Medical History Anxiety Asthma rare use of PRN inh CAD (coronary artery disease) per outpatient cardio note: History of anterior wall MT at age 45, PTCA of the LAD at that time. Abnormal stress testing in March 2004 with repeat catheterization on 04-09-04 demonstrating nonobstructive CAD with a total chronic occlusion of a 2nd diagonal branch and mild CAD elsewhere. Cardiac catheterization in July 2016 demonstrating the chronic total occlusion of a diagonal branch with [id number] collaterals, 30% ostial RCA stenosis, and 30% mid RCA stenosis. LVEDP normal, 8 mmHg. Presentation to [facility] May 2018 with unstable angina. Diagnostic cardiac catheterization with severe single-vessel coronary artery disease with an 80% mid RCA stenosis for which she underwent PCI, 3.0 x 18 mm drug-eluting stent implantation by Dr. Mclaughlin Admission to [facility] in October 2018 with unstable angina, status post November 16, 2018 cardiac catheterization which demonstrated a severe, moderately calcified, 70% ostial right coronary artery stenosis with catheter dampening noted on engagement, status post successful PCI the ostial RCA with a single 3.0 x 12 Xience Eda drug-eluting stent. The previously placed mid RCA stent was noted to be patent. Chronic diagonal occlusion with collaterals. DDD (degenerative disc disease) Diverticulosis of colon Dry eye Encounter for pre-operative examination GERD (gastroesophageal reflux disease) History of Clostridioides difficile infection 11/2020; pt reports symptoms resolved. History of myocardial infarction (03/01/11) "anterior wall MT" at age 45 History of recent hospitalization 11/2020; c.diff, cholecystitis HLD (hyperlipidemia) HTN (hypertension) IBS (irritable bowel syndrome) On anticoagulant therapy Osteoarthritis Pacemaker placed approx 5 years ago; SSS; medtronic - checked within last 2 mo SSS (sick sinus syndrome) Surgical History H/O exploratory laparotomy "02/05/15 Dr. Marques Rodriguez" History of cardiac catheterization 2020 [place] - 2 stents placed (1 stent x 2 procedures) age 45 - angioplasty History of cataract extraction History of colonoscopy History of esophagogastroduodenoscopy (EGD) History of hysterectomy History of mandibular surgery History of Faisal fundoplication "02/05/[address] Marques Rodriguez" History of PTCA History of tonsillectomy and adenoidectomy History of tooth extraction S/P repair of paraesophageal hernia "02/04/15 complicated by esophageal perforation" Family History Father Lung cancer Mother Hypertension Other No family history of adverse response to anesthesia Social History Smoking Status: Former smoker Tobacco Type: Cigarettes Smoking End Date: 5 or 6 years ago; Second Hand Exposure: No; Do You Dip or Chew Tobacco: No; Tobacco Cessation Education Requested by Patient: No Hx Alcohol Use: No Hx Substance Use: No (CBD/THC gummies) Preferred Language: Kenyan Communication Ability: Effective Stock Controller Required: No Beliefs That Will Affect Care: None marital status: Current Living Situation: Spouse Current Living Situation Comment: independent group home appartment current occupation: retired How many Children do You have: 2 Other Information That Helps Us Care for You: No Feels Safe at Home: Yes Safety Concerns: Feels Safe At This Time Assistive Devices: None Review of Systems Review of Systems: Review of Systems: See HPI for pertinent positives. All other 10 point review of systems are negative. Physical Exam Physical Exam: General: no acute distress and stated age Head: normocephalic, no masses, lesions, tenderness or abnormalities Eyes: conjunctiva are pink and non-injected, sclera clear Neck: supple, no adenopathy, no bruits, normal jugular venous pulse, no hepatojugular reflux Chest: normal shape and normal respiratory effort Lungs: clear to auscultation and percussion Cardiac Exam: - regular rate & rhythm, no murmurs gallops or rubs - normal S1, normal S2 Pulses: 2(+) throughout Abdomen: abdomen soft, non-tender, no abnormal masses and no hepatosplenomegaly Musculoskeletal: no gait disturbance, no joint inflammation, no deforming arthritis Extremities: no edema and no cyanosis Neuro: grossly normal exam Results & Data ([facility]) Vital Signs (Past 12 Hours) Vital Signs Temp Pulse Pulse Resp BP Pulse Ox 05/28/21 07:35 36.5 C 67 19 127/74 97 05/28/21 05:08 65 05/28/21 04:05 36.6 C 60 18 105/60 94 05/27/21 22:47 36.7 C 60 18 128/59 L 97 Laboratory Results Laboratory Results - last 24 hr 05/27/21 05/27/21 05/27/21 12:11 12:11 13:04 WBC Cancelled 6.10 RBC Cancelled 4.80 Hgb Cancelled 14.8 Hct Cancelled 43.3 MCV Cancelled 90.2 MCH Cancelled 30.8 MCHC Cancelled 34.2 RDW Std Deviation Cancelled 42.7 RDW Coeff of Nanette Cancelled 13.0 Plt Count Cancelled 232 MPV Cancelled 10.2 Immature Gran % (Auto) Cancelled 0.3 Neut % (Auto) Cancelled 65.5 Lymph % (Auto) Cancelled 28.0 [place] % (Auto) Cancelled 5.6 Eos % (Auto) Cancelled 0.3 Baso % (Auto) Cancelled 0.3 Neut # (Auto) Cancelled 3.99 Lymph # (Auto) Cancelled 1.71 [place] # (Auto) Cancelled 0.34 Eos # (Auto) Cancelled 0.02 Baso # (Auto) Cancelled 0.02 Immature Gran # (Auto) Cancelled 0.02 Absolute Nucleated RBC Cancelled Nucleated RBC % (auto) Cancelled Neutrophils % (Manual) Cancelled Band Neutrophils % Cancelled Lymphocytes % (Manual) Cancelled Prolymphocyte % Cancelled Reactive Lymphs % (Man) Cancelled Monocytes % (Manual) Cancelled Eosinophils % (Manual) Cancelled Basophils % (Manual) Cancelled Metamyelocytes % (Man) Cancelled Myelocytes % (Man) Cancelled Promyelocytes % (Man) Cancelled Blast Cells % (Manual) Cancelled Plasma Cell % (Manual) Cancelled Other Cells % Cancelled Nucleated RBC % Cancelled Neutrophils # (Manual) Cancelled Band Neutrophils # Cancelled Total Absolute Neuts Cancelled Lymphocytes # (Manual) Cancelled Prolymphocyte # Cancelled Reactive Lymphs # Cancelled Total Abs Lymphocytes Cancelled Monocytes # (Manual) Cancelled Eosinophils # (Manual) Cancelled Basophils # (Manual) Cancelled Metamyelocytes # (Man) Cancelled Myelocytes # (Manual) Cancelled Promyelocytes # (Man) Cancelled Blast Cells # (Man) Cancelled Plasma Cell # (Manual) Cancelled Other Cells # Cancelled Nucleated RBCs # (Man) Cancelled Hypersegmented Neuts Cancelled Hyposegmented Neuts Cancelled Hypogranular Neuts Cancelled Large Granular Lymphs Cancelled # Lrg Granular Lymphs Cancelled Hairy Cells Cancelled Smudge Cells Cancelled Toxic Granulation Cancelled Toxic Vacuolation Cancelled Dohle Bodies Cancelled Mati Rods Cancelled Platelet Estimate Cancelled Hypogranular Platelets Cancelled Clumped Platelets Cancelled Giant Platelets Cancelled Platelet Satelliting Cancelled RBC Morphology Cancelled Polychromasia Cancelled Hypochromasia Cancelled Poikilocytosis Cancelled Basophilic Stippling Cancelled Anisocytosis Cancelled Microcytosis Cancelled Macrocytosis Cancelled Spherocytes Cancelled Pappenheimer Bodies Cancelled Sickle Cells Cancelled Target Cells Cancelled Tear Drop Cells Cancelled Ovalocytes Cancelled Stomatocytes Cancelled Ellis-Rosemead Bodies Cancelled Echinocytes Cancelled Acanthocytes (Spur) Cancelled Rouleaux Cancelled RBC Agglutinates Cancelled Schistocytes Cancelled RBC Morph Comment Cancelled Sezary Cell Cancelled Sodium 137 Potassium 4.1 Chloride 102 Carbon Dioxide 25 Anion Gap 10 BUN 7 Creatinine 0.67 Est Cr Clr Drug Dosing 64.1 Est GFR ( Amer) 99.0 Est GFR (Non-Af Amer) 85.4 BUN/Creatinine Ratio 10.4 Glucose 98 Estimat Average Glucose Hemoglobin A1c Calcium 9.8 Total Bilirubin 0.6 AST 16 ALT 7 Alkaline Phosphatase 120 H Troponin I < 0.03 Total Protein 7.5 Albumin 4.5 Globulin 3.0 Albumin/Globulin Ratio 1.5 Triglycerides Cholesterol LDL Cholesterol, Calc VLDL Cholesterol, Calc HDL Cholesterol Cholesterol/HDL Ratio 05/27/21 05/28/2105/28/22 19:44 06:46 06:46 WBC 4.75 L RBC 4.21 Hgb 12.8 Hct 37.9 MCV 90.0 MCH 30.4 MCHC 33.8 RDW Std Deviation 43.5 RDW Coeff of Nanette 13.2 Plt Count 229 MPV 10.2 Immature Gran % (Auto) Neut % (Auto) Lymph % (Auto) [place] % (Auto) Eos % (Auto) Baso % (Auto) Neut # (Auto) Lymph # (Auto) [place] # (Auto) Eos # (Auto) Baso # (Auto) Immature Gran # (Auto) Absolute Nucleated RBC Nucleated RBC % (auto) Neutrophils % (Manual) Band Neutrophils % Lymphocytes % (Manual) Prolymphocyte % Reactive Lymphs % (Man) Monocytes % (Manual) Eosinophils % (Manual) Basophils % (Manual) Metamyelocytes % (Man) Myelocytes % (Man) Promyelocytes % (Man) Blast Cells % (Manual) Plasma Cell % (Manual) Other Cells % Nucleated RBC % Neutrophils # (Manual) Band Neutrophils # Total Absolute Neuts Lymphocytes # (Manual) Prolymphocyte # Reactive Lymphs # Total Abs Lymphocytes Monocytes # (Manual) Eosinophils # (Manual) Basophils # (Manual) Metamyelocytes # (Man) Myelocytes # (Manual) Promyelocytes # (Man) Blast Cells # (Man) Plasma Cell # (Manual) Other Cells # Nucleated RBCs # (Man) Hypersegmented Neuts Hyposegmented Neuts Hypogranular Neuts Large Granular Lymphs # Lrg Granular Lymphs Hairy Cells Smudge Cells Toxic Granulation Toxic Vacuolation Dohle Bodies Mati Rods Platelet Estimate Hypogranular Platelets Clumped Platelets Giant Platelets Platelet Satelliting RBC Morphology Polychromasia Hypochromasia Poikilocytosis Basophilic Stippling Anisocytosis Microcytosis Macrocytosis Spherocytes Pappenheimer Bodies Sickle Cells Target Cells Tear Drop Cells Ovalocytes Stomatocytes Ellis-Rosemead Bodies Echinocytes Acanthocytes (Spur) Rouleaux RBC Agglutinates Schistocytes RBC Morph Comment Sezary Cell Sodium 137 Potassium 3.7 Chloride 105 Carbon Dioxide 27 Anion Gap 5 BUN 8 Creatinine 0.61 Est Cr Clr Drug Dosing 73.9 Est GFR ( Amer) 102.1 Est GFR (Non-Af Amer) 88.1 BUN/Creatinine Ratio 13.1 Glucose 90 Estimat Average Glucose Hemoglobin A1c Calcium 8.2 L Total Bilirubin 0.5 AST 13 ALT 6 L Alkaline Phosphatase 100 Troponin I < 0.03 < 0.03 Total Protein 6.3 Albumin 3.6 Globulin 2.7 Albumin/Globulin Ratio 1.3 Triglycerides 155 H Cholesterol 167 LDL Cholesterol, Calc 66 VLDL Cholesterol, Calc 31 H HDL Cholesterol 70 Cholesterol/HDL Ratio 2.4 05/28/21 06:46 WBC RBC Hgb Hct MCV MCH MCHC RDW Std Deviation RDW Coeff of Nanette Plt Count MPV Immature Gran % (Auto) Neut % (Auto) Lymph % (Auto) [place] % (Auto) Eos % (Auto) Baso % (Auto) Neut # (Auto) Lymph # (Auto) [place] # (Auto) Eos # (Auto) Baso # (Auto) Immature Gran # (Auto) Absolute Nucleated RBC Nucleated RBC % (auto) Neutrophils % (Manual) Band Neutrophils % Lymphocytes % (Manual) Prolymphocyte % Reactive Lymphs % (Man) Monocytes % (Manual) Eosinophils % (Manual) Basophils % (Manual) Metamyelocytes % (Man) Myelocytes % (Man) Promyelocytes % (Man) Blast Cells % (Manual) Plasma Cell % (Manual) Other Cells % Nucleated RBC % Neutrophils # (Manual) Band Neutrophils # Total Absolute Neuts Lymphocytes # (Manual) Prolymphocyte # Reactive Lymphs # Total Abs Lymphocytes Monocytes # (Manual) Eosinophils # (Manual) Basophils # (Manual) Metamyelocytes # (Man) Myelocytes # (Manual) Promyelocytes # (Man) Blast Cells # (Man) Plasma Cell # (Manual) Other Cells # Nucleated RBCs # (Man) Hypersegmented Neuts Hyposegmented Neuts Hypogranular Neuts Large Granular Lymphs # Lrg Granular Lymphs Hairy Cells Smudge Cells Toxic Granulation Toxic Vacuolation Dohle Bodies Mati Rods Platelet Estimate Hypogranular Platelets Clumped Platelets Giant Platelets Platelet Satelliting RBC Morphology Polychromasia Hypochromasia Poikilocytosis Basophilic Stippling Anisocytosis Microcytosis Macrocytosis Spherocytes Pappenheimer Bodies Sickle Cells Target Cells Tear Drop Cells Ovalocytes Stomatocytes Ellis-Rosemead Bodies Echinocytes Acanthocytes (Spur) Rouleaux RBC Agglutinates Schistocytes RBC Morph Comment Sezary Cell Sodium Potassium Chloride Carbon Dioxide Anion Gap BUN Creatinine Est Cr Clr Drug Dosing Est GFR ( Amer) Est GFR (Non-Af Amer) BUN/Creatinine Ratio Glucose Estimat Average Glucose 111 Hemoglobin A1c 5.5 Calcium Total Bilirubin AST ALT Alkaline Phosphatase Troponin I Total Protein Albumin Globulin Albumin/Globulin Ratio Triglycerides Cholesterol LDL Cholesterol, Calc VLDL Cholesterol, Calc HDL Cholesterol Cholesterol/HDL Ratio Medications Administered Current Inpatient Medications Acetaminophen (Acetaminophen 325 Mg Tab) 650 mg PO Q4H PRN PRN Reason: Moderate Pain Stop: 06/26/21 16:40 Albuterol (Albuterol Hfa 8 Gm Inhaler) 2 puffs INH Q4 PRN PRN Reason: Wheezing Stop: 06/26/21 16:40 Aspirin (Aspirin 81 Mg Ectab) 81 mg PO HS MAGED Stop: 06/26/21 20:59 Last Admin: 05/27/21 20:18 Dose: 81 mg Documented by: Atenolol (Atenolol 50 Mg Tablet) 50 mg PO AMHS MAGED Stop: 06/26/21 20:59 Last Admin: 05/27/21 20:18 Dose: 50 mg Documented by: Buspirone HCl (Buspirone 5 Mg Tab) 5 mg PO BID [facility] Stop: 06/26/21 20:59 Last Admin: 05/28/21 08:13 Dose: 5 mg Documented by: Calcium Polycarbophil (Calcium Polycarbophil 625mg Tab) 625 mg PO DAILY [facility] Stop: 06/27/21 08:59 Last Admin: 05/28/21 08:16 Dose: 625 mg Documented by: Colestipol HCl (Colestipol Hcl 1 Gm Tab) 1 gm PO BID@1000,2200 [facility] Stop: 06/26/21 21:59 Last Admin: 05/28/21 10:51 Dose: Not Given Documented by: Cyanocobalamin (Cyanocobalamin (B-12) 500 Mcg Tablet) 1,000 mcg PO QDD [facility] Stop: 06/26/21 17:59 Last Admin: 05/27/21 18:43 Dose: 1,000 mcg Documented by: Diclofenac Sodium (Diclofenac Sod 1% Gel 100 Gm Tube) 2 gm EXT BID PRN PRN Reason: Pain Stop: 06/26/21 16:40 Dicyclomine HCl (Dicyclomine Hcl 10 Mg Cap) 10 mg PO BID PRN PRN Reason: DIARRHEA/ABD PAIN Stop: 06/26/21 16:40 Diltiazem HCl (Diltiazem Er 120 Mg Capcr) 120 mg PO QAM [facility] Stop: 06/27/21 08:59 Estradiol (Estradiol 1 Mg Tab) 0.5 mg PO SuTuThSa@0900 [facility] Stop: 06/28/21 08:59 Heparin Sodium (Porcine) (Heparin Sod 5,000 Unit/0.5 Ml Vial) 5,000 units SQ Q12 [facility] Stop: 06/26/21 20:59 Last Admin: 05/28/21 08:15 Dose: 5,000 units Documented by: Lorazepam (Lorazepam 0.5 Mg Tab) 0.5 mg PO TID PRN PRN Reason: Anxiety Stop: 06/26/21 16:40 Last Admin: 05/27/21 22:57 Dose: 0.5 mg Documented by: Magnesium Oxide (Magnesium Oxide 400 Mg Tab) 400 mg PO DAILY [facility] Stop: 06/27/21 08:59 Last Admin: 05/28/21 08:15 Dose: 400 mg Documented by: Ondansetron HCl (Ondansetron Inj 2 Mg/Ml 2 Ml Vial) 4 mg IV Q4H PRN PRN Reason: Nausea And Vomiting Stop: 06/26/21 16:40 Pantoprazole Sodium (P[facility]oprazole 40 Mg Tab) [facility] [place] [place]: 06/27/21 08:59 Last Admin: 05/28/21 08:16 Dose: 40 mg Documented by: Potassium Chloride (Potassium Chloride 10 Meq Tabcr) 10 meq PO DAILY [facility] Stop: 06/27/21 08:59 Last Admin: 05/28/21 08:16 Dose: 10 meq Documented by: Simvastatin (Simvastatin 40 Mg Tab) 40 mg PO HS [facility] Stop: 06/26/21 20:59 Last Admin: 05/27/21 20:18 Dose: 40 mg Documented by: Sucralfate (Sucralfate 1 Gm Tab) 1 gm PO ACHS PRN PRN Reason: Acid Reflux Stop: 06/26/21 16:40 Vitamin D (Cholecalciferol 1,000 Units 25 Mcg Tab) 2,[facility] [place] [facility] [place]: 06/27/21 08:59 Last Admin: 05/28/21 08:15 Dose: 2,000 units Documented by:
[2021-05-28] MEDS: COLESTIPOL HCL 1 GM TAB PO SCH (10:51)
--- NOTE | 2021-05-28 12:19 | Hospitalist Progress Note ---
Date of Service May 28, 2021 Assessment & Plan (1) Chest pain: Plan: R/O ACS H/P CAD:May 2018 KIERSTEN x 1 in RCA and Oct 2018 KIERSTEN x 1 in ostial RCA. CXR:No acute chest disease. ECHO: Left ventricle is normal in size. Left ventricle wall motion is normal at rest. EF 60 to 65%. Mild aortic regurgitation. Right ventricle systolic function is normal. Mild mitral regurgitation. Troponin X3: Negative LDL:66 EKG: No signs of acute Ischemia Continue aspirin, beta-chio, statin Appreciate Cardiology Input Chest discomfort likely related to anxiety as per cardiology No further cardac work-up planned (2) Ischemic heart disease, chronic: Plan: -continue home meds (3) HTN (hypertension): Plan: Continue Atenolol 50, Cardizem 120 daily (4) SSS (sick sinus syndrome): (5) Pacemaker: Plan: - Routine pacemaker interrogation was done on 05/21/2021 which showed atrial paced and RV sensed. (6) IBS (irritable bowel syndrome): Plan: Chronic diarrhea--uncganged (7) GERD (gastroesophageal reflux disease): Plan: - Continue protonix 40 mg (8) Anxiety: Plan: May continue lorazepam for anxiety - uses 1-3 times per day, Also on CBD gummies at home H/O recent of a loved one. Continue Buspirone Psychiatry consulted. DVT px: heparin SQ CODE STATUS: FULL code Admission and Anticipated Discharge Date Admission Date: May 27, 2021 Subjective Patient is seen and examined bedside States feeling tired Denies any chest pain, shortness of breath, dizziness, nausea, abdominal pain Transiently dizzy overnight but resolved Offers no other complaints Review of Systems Review of Systems: All systems reviewed & are unremarkable except as noted in Subjective Physical Exam Physical Exam: Physical Exam: Vitals signs as noted above General Appearance:Moderately built and nourished, no apparent distress Head: normocephalic, Atraumatic Eyes: normal inspection, EOMI Neck: supple, Trachea midline Respiratory/Chest: Normal breath sounds, CTA, No accessory muscle use Cardiovascular: S1, S2, No murmur Abdomen/GI:Soft, Non tender, Bowel sounds present Extremities/Musculoskeletal:normal inspection, no edema Neurologic/Psych:AAOX3, grossly no focal neurological deficits Skin: normal color, warm Results & Data Results & Data ([facility]) Vital Signs (Past 12 Hours) Vital Signs Temp Pulse Pulse Resp BP Pulse Ox 05/28/21 11:15 36.5 C 61 19 129/72 98 05/28/21 07:35 36.5 C 67 19 127/74 97 05/28/21 05:08 65 05/28/21 04:05 36.6 C 60 18 105/60 94 Laboratory Results Short CBC 05/27/21 05/27/21 05/28/21 Range/Units 12:11 13:04 06:46 WBC Cancelled 6.10 4.75 L Hgb Cancelled 14.8 12.8 Hct Cancelled 43.3 37.9 Plt Count Cancelled 232 229 BMP 05/27/21 05/28/21 12:11 06:46 Sodium 137 137 Potassium 4.1 3.7 Chloride 102 105 Carbon Dioxide 25 27 BUN 7 8 Creatinine 0.67 0.61 Glucose 98 90 Calcium 9.8 8.2 L Cardiac Enzymes 05/27/21 05/27/21 05/28/21 Range/Units 12:11 19:44 06:46 Troponin I < 0.03 < 0.03 < 0.03 (0-0.04) ng/ml Liver Function 05/27/21 05/28/21 Range/Units 12:11 06:46 Total Bilirubin 0.6 0.5 (0.2-1.0) mg/dl AST 16 13 (13-39) U/L ALT 7 6 L (7-52) U/L Alkaline Phosphatase 120 H 100 (34-104) U/L Albumin 4.5 3.6 (3.4-5.0) gm/dl (1) GERD (gastroesophageal reflux disease) Esophagitis presence: esophagitis presence not specified Qualified Code(s): K21.9 - Gastro-esophageal reflux disease without esophagitis (2) Chest pain Chest pain type: other chest pain Qualified Code(s): R07.89 - Other chest pain (3) HTN (hypertension) Hypertension type: essential hypertension Qualified Code(s): I10 - Essential (primary) hypertension (4) IBS (irritable bowel syndrome) Irritable bowel syndrome type: with diarrhea Qualified Code(s): K58.0 - Irritable bowel syndrome with diarrhea
[2021-05-28] MEDS: ATENOLOL 50 MG TABLET PO SCH (12:49)
--- NOTE | 2021-05-28 14:39 | Psychiatric Consultation ---
Date of Consultation May 28, 2021 Impression / Recommendations Impression This is a 75 yo with a history of anxiety admitted medically. Diagnostically consistent with NOEL, adjustment disorder with anxiety. Acute risk of self-harm is low given denial of SI. Sodium is normal and no evidence of prolonged QTc. Addition of an SSRI will likely help reduce anxiety, tends to offer synergistic effect with buspirone and ideally will lead to less reliance on ativan for anxiety relief. -Consider starting sertraline 25 mg qd and could increase to 50mg qd after 2 weeks if well tolerated OR mirtazapine 7.5 mg qhs and titrate to 15mg qhs after 2 weeks if well tolerated if anxiety persists in outpatient setting; buspirone could also be titrated in the future for further anxiolytic benefits if needed -Recommend limiting benzodiazepines and ideally tapering by 0.125mg per week given high risks of falls, cognitive effects in elderly -provided resources for local mental health services if she decides she would like to participate in outpatient therapy (1) NOEL (generalized anxiety disorder): (2) Adjustment disorder with anxiety: see above Risk Factors Assessment Previous Attempt: No Hopelessness: No Psych History Identifying Data 75 yo woman with history of anxiety, depression, ischemic heart disease, HTN, IBS admitted for chest pain. Psychiatry consulted for anxiety recommendations. Chief Complaint "There's been a lot going on recently". History of Present Illness Ciarra endorses an increasing anxiety over the last few months in the context of multiple psychosocial stressors: recent of her cousin, her brother being diagnosed with Parkinson's disease, and multiple medication conditions over the last year including C diff infection, gallbladder removal, dental/oral surgery p rocedures, and blood in her urine since February. She notes she has been under more stress lately and some days feel like "an emotional roller coaster" but she also feels that she tends to cope well and often just needs " a few days" to process new stressors and then she's quite capable of dealing with them. She's also able to discuss many positive things in her life noting "on the flip side" that lots of her medication conditions are getting better including a new medication that's helping with her IBS. She uses medical marijuana and CBD gummies as well as ativan 0.5 mg TID and buspar 5 mg TID for anxiety and IBS. She's tried lexapro and paxil in the past with bad side effects. She's not very interested in adding any additional medications at this time but is appreciative of option to try this in the future should she desire. Reviewed potential benefits of outpatient therapy, she did therapy once before in her 40s and found it helpful, states if she remains anxious she'll consider this and expressed appreciation for the resource book. She discussed her and ways that they find humor in situations and how well supported she feels by him. Laughed in telling funny story about him. She's hopeful she will be allowed to go home today. Past Psychiatric History Outpatient Services: none Previous Psych Admissions: none History of Previous Suicide Attempt: No Allergies Allergy/AdvReac Type Severity Reaction Status Date / Time chlorhexidine Allergy Intermediate ITCHY RASH Verified 05/27/21 14:59 latex Allergy Mild Rash Verified 05/27/21 14:59 adhesive Allergy Rash Verified 05/27/21 14:59 epinephrine AdvReac Intermediate HEART RACES Verified 05/27/21 14:59 escitalopram AdvReac Intermediate ITCHING/SAIDA Verified 05/27/21 14:59 MACI paroxetine [From Paxil] AdvReac Intermediate FOGGY/VISUAL Verified 05/27/21 14:59 IMPAIRMENT alprazolam AdvReac Unknown HEADACHE Verified 05/27/21 14:59 Home Medications Medication Instructions Recorded Confirmed Type acetaminophen 650 mg 650 mg PO DIRECTED PRN 06/16/18 05/27/21 History tablet,extended release (Tylenol Arthritis Pain) albuterol sulfate 90 mcg/actuation 2 puff INHALATION Q4 PRN 06/16/18 05/27/21 History aerosol inhaler (Proventil HFA) aspirin 81 mg tablet,delayed 81 mg PO HS 06/16/18 05/27/21 History release (Aspirin Low Dose) buspirone 5 mg tablet 5 mg PO BID 06/16/18 05/27/21 History cholecalciferol (vitamin D3) 50 2,000 unit PO QAM 06/16/18 05/27/21 History mcg (2,000 unit) capsule (Vitamin D3) dicyclomine 10 mg capsule 10 mg PO BIDM 06/16/18 05/27/21 History estradiol 0.5 mg tablet (Estrace) 0.5 mg PO 4XWK 06/16/18 05/27/21 History hydrochlorothiazide 25 mg tablet 12.5 mg PO QAM PRN 06/16/18 05/27/21 History loperamide 2 mg capsule (Imodium 2 mg PO DIRECTED PRN 06/16/18 05/27/21 History A-D) lorazepam 0.5 mg tablet (Ativan) 0.5 mg PO TID PRN 06/16/18 05/27/21 History nitroglycerin 0.4 mg sublingual 0.4 mg SUBLINGUAL DIRECTED PRN 06/16/18 05/27/21 History tablet (Nitrostat) simvastatin 40 mg tablet (Zocor) 20 mg PO HS 06/16/18 05/27/21 History pantoprazole 40 mg tablet,delayed 40 mg PO QAM 05/07/19 05/27/21 History release (Protonix) atenolol 50 mg tablet (Tenormin) 50 mg PO AMHS 08/01/19 05/27/21 History Cbd Gummies 0 tab PO DIRECTED 11/23/20 05/27/21 History colestipol 1 gram tablet (Colestid) 1 g PO BID 11/23/20 05/27/21 History cyanocobalamin (vitamin B-12) 1,000 mcg PO QDD 11/23/20 05/27/21 History 1,000 mcg tablet (Vitamin B-12) Lactobacillus rhamnosus GG 15 1 cap PO BIDM 12/23/20 05/27/21 History billion cell sprinkle capsule (Culturelle) diltiazem HCl 120 mg capsule,24 120 mg PO QAM 12/23/20 05/27/21 History hr,extended release potassium gluconate 595 mg (99 mg) 595 mg PO DAILY 02/22/21 05/27/21 History tablet clotrimazole-betamethasone 1 1 applic TOPICAL BID 05/27/21 05/27/21 History %-0.05 % topical cream conjugated estrogens 0.625 mg/gram 0.3125 mg VAGINAL 2XWK 05/27/21 05/27/21 History vaginal cream desonide 0.05 % lotion 1 applic TOPICAL BID PRN 05/27/21 05/27/21 History diclofenac sodium 1 % topical gel 2 g TOPICAL BID PRN 05/27/21 05/27/21 History fluocinolone 0.01 % scalp oil and 1 ea TOPICAL DAILY PRN 05/27/21 05/27/21 History shower cap guar gum 1 tbsp PO TIDM 05/27/21 05/27/21 History ibuprofen 200 mg tablet 400 mg PO DIRECTED PRN 05/27/21 05/27/21 History lifitegrast 5 % eye drops in a 1 drp OPHTHALMIC (EYE) BID 05/27/21 05/27/21 History dropperette (Xiidra) magnesium oxide 0 mg PO DAILY 05/27/21 05/27/21 History ondansetron 4 mg disintegrating 4 mg SUBLINGUAL Q6H PRN 05/27/21 05/27/21 History tablet sucralfate 1 gram tablet (Carafate) 1 g PO ACHS PRN 05/27/21 05/27/21 History Substance Abuse History denies, uses CBD gummies for anxiety with good benefit Personal History Living Arrangements: Home (with ) Employment Status: Retired Marital Status: Beliefs That Will Affect Care: None Psychological Trauma History Comment: She endorsed a history of childhood em otional trauma. Patient History Medical History (Updated 05/28/21 @ 16:09 by Samara Persaud MD) Anxiety Asthma rare use of PRN inh CAD (coronary artery disease) per outpatient cardio note: History of anterior wall HI at age 45, PTCA of the LAD at that time. Abnormal stress testing in March 2004 with repeat catheterization on 04-09-04 demonstrating nonobstructive CAD with a total chronic occlusion of a 2nd diagonal branch and mild CAD elsewhere. Cardiac catheterization in July 2016 demonstrating the chronic total occlusion of a diagonal branch with [id number] collaterals, 30% ostial RCA stenosis, and 30% mid RCA stenosis. LVEDP normal, 8 mmHg. Presentation to [facility] May 2018 with unstable angina. Diagnostic cardiac catheterization with severe single-vessel coronary artery disease with an 80% mid RCA stenosis for which she underwent PCI, 3.0 x 18 mm drug-eluting stent implantation by Dr. Mclaughlin Admission to [facility] in October 2018 with unstable angina, status post November 16, 2018 cardiac catheterization which demonstrated a severe, moderately calcified, 70% ostial right coronary artery stenosis with catheter dampening noted on engagement, status post successful PCI the ostial RCA with a single 3.0 x 12 Xience Eda drug-eluting stent. The previously placed mid RCA stent was noted to be patent. Chronic diagonal occlusion with collaterals. DDD (degenerative disc disease) Diverticulosis of colon Dry eye Encounter for pre-operative examination NOEL (generalized anxiety disorder) GERD (gastroesophageal reflux disease) History of Clostridioides difficile infection 11/2020; pt reports symptoms resolved. History of myocardial infarction (03/01/11) "anterior wall HI" at age 45 History of recent hospitalization 11/2020; c.diff, cholecystitis HLD (hyperlipidemia) HTN (hypertension) IBS (irritable bowel syndrome) On anticoagulant therapy Osteoarthritis Pacemaker placed approx 5 years ago; SSS; medtronic - checked within last 2 mo SSS (sick sinus syndrome) Surgical History H/O exploratory laparotomy "02/05/15 Dr. Marques Rodriguez" History of cardiac catheterization 2020 [place] - 2 stents placed (1 stent x 2 procedures) age 45 - angioplasty History of cataract extraction History of colonoscopy History of esophagogastroduodenoscopy (EGD) History of hysterectomy History of mandibular surgery History of Faisal fundoplication "02/05/[address] Marques Rodriguez" History of PTCA History of tonsillectomy and adenoidectomy History of tooth extraction S/P repair of paraesophageal hernia "02/04/15 complicated by esophageal perforation" Family History Father Lung cancer Mother Hypertension Other No family history of adverse response to anesthesia Social History Smoking Status: Former smoker Tobacco Type: Cigarettes Smoking End Date: 5 or 6 years ago; Second Hand Exposure: No; Do You Dip or Chew Tobacco: No; Tobacco Cessation Education Requested by Patient: No Hx Alcohol Use: No Hx Substance Use: No (CBD/THC gummies) Preferred Language: Portuguese Communication Ability: Effective Fixture Maker Required: No Beliefs That Will Affect Care: None marital status: Current Living Situation: Spouse Current 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 Situation 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 How many Children do You have: 2 Other Information That Helps Us Care for You: No Feels Safe at Home: Yes Safety Concerns: Feels Safe At This Time Assistive Devices: None Physical Exam Psychiatric: Orientation: alert and oriented x 3 Apperance: appropriately dressed and appropriately groomed Eye Contact: good eye contact Motor Behavior: no abnormal motor movements Speech: normal rate/rhythm/volume of speech Affect: euthymic affect Mood: + anxious mood; no depressed mood Thought Process: goal directed thought process Thought Content: reality based without delusions Suicidal Thoughts: denies suicidal thoughts Homicidal Thoughts: denies homicidal thoughts Hallucinations: no auditory hallucinations and no visual hallucinations Cognition: recent memory grossly intact, remote memory grossly intact, attention grossly intact and language grossly intact Estimated Intelligence: consistent with education level Insight: good insight Judgement: + fair judgement Vital Signs (Past 24 Hours): Last Vital Signs Temp 36.5 C 05/28/21 11:15 Pulse 67 05/28/21 13:26 Resp 19 05/28/21 11:15 BP 147/86 H 05/28/21 13:26 Pulse Ox 98 05/28/21 11:15 Review of Systems All systems reviewed & are unremarkable except as noted in HPI & below Results & Data (PSY) Diagnostic Findings EKG QTc 452 on 05/28/21 Medications Administered Aspirin (Aspirin 81 Mg Ectab) 81 mg PO HS [facility] Stop: 06/26/21 20:59 Last Admin: 05/27/21 20:18 Dose: 81 mg Documented by: [id number] Atenolol (Atenolol 50 Mg Tablet) 50 mg PO AMHS [facility] Stop: 06/26/21 20:59 Last Admin: 05/28/21 12:49 Dose: Not Given Documented by: [id number] Admin: 05/27/21 20:18 Dose: 50 mg Documented by: [id number] Buspirone HCl (Buspirone 5 Mg Tab) 5 mg PO BID [facility] Stop: 06/26/21 20:59 Last Admin: 05/28/21 08:13 Dose: 5 mg Documented by: [id number] Admin: 05/27/21 20:18 Dose: 5 mg Documented by: [id number] Calcium Polycarbophil (Calcium Polycarbophil 625mg Tab) 625 mg PO DAILY [facility] Stop: 06/27/21 08:59 Last Admin: 05/28/21 08:16 Dose: 625 mg Documented by: [id number] Colestipol HCl (Colestipol Hcl 1 Gm Tab) 1 gm PO BID@1000,2200 [facility] Stop: 06/26/21 21:59 Last Admin: 05/28/21 10:51 Dose: Not Given Documented by: [id number] Admin: 05/27/21 22:52 Dose: 1 gm Documented by: [id number] Cyanocobalamin (Cyanocobalamin (B-12) 500 Mcg Tablet) 1,000 mcg PO QDD [facility] Stop: 06/26/21 17:59 Last Admin: 05/27/21 18:43 Dose: 1,000 mcg Documented by: [id number] Diltiazem HCl (Diltiazem Er 120 Mg Capcr) 120 mg PO QAM [facility] Stop: 06/27/21 08:59 Last Admin: 05/28/21 13:28 Dose: 120 mg Documented by: [id number] Heparin Sodium (Porcine) (Heparin Sod 5,000 Unit/0.5 Ml Vial) 5,000 units SQ Q12 [facility] Stop: 06/26/21 20:59 Last Admin: 05/28/21 08:15 Dose: 5,000 units Documented by: [id number] Admin: 05/27/21 21:56 Dose: 5,000 units Documented by: [id number] Lorazepam (Lorazepam 0.5 Mg Tab) 0.5 mg PO TID PRN PRN Reason: Anxiety Stop: 06/26/21 16:40 Last Admin: 05/27/21 22:57 Dose: 0.5 mg Documented by: [id number] Magnesium Oxide (Magnesium Oxide 400 Mg Tab) 400 mg PO DAILY [facility] Stop: 06/27/21 08:59 Last Admin: 05/28/21 08:15 Dose: 400 mg Documented by: [id number] Pantoprazole Sodium (Pantoprazole 40 Mg Tab) 40 mg PO QAM [facility] Stop: 06/27/21 08:59 Last Admin: 05/28/21 08:16 Dose: 40 mg Documented by: [id number] Potassium Chloride (Potassium Chloride 10 Meq Tabcr) 10 meq PO DAILY [facility] Stop: 06/27/21 08:59 Last Admin: 05/28/21 08:16 Dose: 10 meq Documented by: [id number] Simvastatin (Simvastatin 40 Mg Tab) 40 mg PO HS [facility] Stop: 06/26/21 20:59 Last Admin: 05/27/21 20:18 Dose: 40 mg Documented by: [id number] Vitamin D (Cholecalciferol 1,000 Units 25 Mcg Tab) 2,000 units PO QAM [facility] Stop: 06/27/21 08:59 Last Admin: 05/28/21 08:15 Dose: 2,000 units Documented by: [id number] Coding Level of Care Code 66961 Inpt Consult Level 3 Diagnoses NOEL (generalized anxiety disorder) F41.1 Adjustment disorder with anxiety F43.22
--- NOTE | 2021-05-28 15:52 | Discharge Summary ---
Date of Service May 28, 2021 Admission HPI Per Admitting Provider This is a 75-year-old female with PMHx of ischemic heart disease, HTN, HLD, sick sinus syndrome status post pacemaker insertion, history of cardiac stent x 2 in 2019, anxiety, GERD, and IBS. She has noticed worsening chest pressure shooting through to the left side of her back, left arm discomfort, and feeling "off" with weakness and fatigue for the past 24 hours. She admits to having some shortness of breath during these timeframes as well intermittently, and sometimes occurs while she is at rest. She admits to large amount of stress at home with a cousin with who yesterday. She becomes tearful during our conversation, saying she she feels very saddened by all of this and having to support her other cousins and family members. She has attempted to calm herself down by using Ativan as needed and CBD Gummies which she says helps, last used yesterday. She has followed with [facility] cardiology, as an outpatient. She has previously underwent stress testing but states she cannot perform a treadmill stress test. She was being seen by gynecology earlier today when she reported chest pain going through her back, weakness and feeling off this morning and needing to lie down twice. At that point they were recommended that she come to the ER. Pt hasn't eaten anything yet today and is requesting food. Her is with her at bedside who she fondly calls her "boyfriend x 58 years", and supports the history. Admission Exam Per Admitting Provider Physical Exam Physical Exam: General: awake, alert, no apparent distress, + anxious Head: Normocephalic, atraumatic ENT: PERRL, EOMI, no pharyngeal exudate, mucous membranes moist Chest: Clear to auscultation, on room air, no adventitious breath sounds Cardiac: Regular rate and rhythm, no murmur, no JVD, normal peripheral pulses, good capillary refill Back: point tenderness with muscle strain involving erector spinae muscles near T7 on left side, Abdominal: NABS x 4 quadrants, soft, nondistended, nontender to palpation, no rebound or guarding Extremities: Normal inspection, no peripheral edema or erythema, Chronic venous changes of feet bilaterally, calfs nontender to palpation Psych: saddened mood anxious and tearful affect at times. Neuro: AAO x 3, strength intact bilaterally and rated 5/5, no motor deficits, speech is clear, no peripheral sensory deficits Principal Diagnosis Chest Pain Anxiety Discharge Data Allergies Allergy/AdvReac Type Severity Reaction Status Date / Time chlorhexidine Allergy Intermediate ITCHY RASH Verified 05/27/21 14:59 latex Allergy Mild Rash Verified 05/27/21 14:59 adhesive Allergy Rash Verified 05/27/21 14:59 epinephrine AdvReac Intermediate HEART RACES Verified 05/27/21 14:59 escitalopram AdvReac Intermediate ITCHING/SAIDA Verified 05/27/21 14:59 MACI paroxetine [From Paxil] AdvReac Intermediate FOGGY/VISUAL Verified 05/27/21 14:59 IMPAIRMENT alprazolam AdvReac Unknown HEADACHE Verified 05/27/21 14:59 Consultations 05/27/21 14:23 ED Decision to Admit Stat 05/27/21 16:41 Consult Cardiology Routine 05/28/21 12:35 Consult Psychiatry Routine Hospital Course (1) Chest pain: R/O ACS H/P CAD:May 2018 KIERSTEN x 1 in RCA and Oct 2018 KIERSTEN x 1 in ostial RCA. CXR:No acute chest disease. ECHO: Left ventricle is normal in size. Left ventricle wall motion is normal at rest. EF 60 to 65%. Mild aortic regurgitation. Right ventricle systolic function is normal. Mild mitral regurgitation. Troponin X3: Negative LDL:66 EKG: No signs of acute Ischemia Continue aspirin, beta-chio, statin Appreciate Cardiology Input Chest discomfort likely related to anxiety as per cardiology No further cardac work-up planned (2) Ischemic heart disease, chronic: -continue home meds (3) HTN (hypertension): Continue Atenolol 50, Cardizem 120 daily (4) SSS (sick sinus syndrome): (5) Pacemaker: - Routine pacemaker interrogation was done on 05/21/2021 which showed atrial paced and RV sensed. (6) IBS (irritable bowel syndrome): Chronic diarrhea--uncganged (7) GERD (gastroesophageal reflux disease): - Continue protonix 40 mg (8) Anxiety: May continue lorazepam for anxiety - uses 1-3 times per day, Also on CBD gummies at home H/O recent of a loved one. Continue Buspirone Appreciate Psychiatry Input : Recommended to be started on sertraline 25 mg daily and eventually increased to 50 mg daily after 2 weeks if tolerated. Also advised to be weaned off of benzodiazepines: Ideally 0.125 mg/week given risk for falls, cognitive effects in elderly Patient currently not interested to be started on any new medications Advised to follow-up with psychiatry as outpatient DVT px: heparin SQ CODE STATUS: FULL code Total Time Total Time Spent Total Time Spent (In Minutes): 40 minutes Discharge Plan Discharge Items Patient Disposition: Home - Self-Care Reason For Visit: CHEST PAIN Discharge Diagnosis: Chest Pain Anxiety Activity: Per Instructions section Exercise/Sports: Gradually increase as tolerated Non-emergency contact: Primary Care Provider and Psychiatrist Call non-emergency contact if: you have any medication questions, your symptoms worsen, your pain is concerning for you and you have a fever Follow-up/Referrals: Anders Crawley, [Primary Care Provider] - (Date & Time 06/04/2021 11:00 AM Provider Robert Baig III, MD Department [facility] ) Diet: Heart Healthy Addtl Attending Provider Instructions: Follow-up with your primary care physician on 06/04/2021 11:00 AM Follow-up with your psychiatrist as recommended. -- Consider to be weaned off of Lorazepam (benzodiazepine) as recommended by your psychiatrist. Discuss with your family physician for further recommendations. Seek immediate medical attention if your symptoms reoccur or worsen Please take all medications as instructed on discharge list below. Please call if you have any questions or problems. You can reach a [facility] hospitalist on duty at [facility] 24 hours a day by calling [phone] Pending Studies at Discharge: No Stand-Alone Forms: [facility], Smoking Cessation Medications and DC Order Prescriptions: Continued buspirone 5 mg Tablet 5 mg PO BID RF: 0 loperamide [Imodium A-D] 2 mg Capsule 2 mg PO DIRECTED PRN (Reason: Diarrhea) RF: 0 aspirin [Aspirin Low Dose] 81 mg Tablet,Delayed Release (Dr/Ec) 81 mg PO HS RF: 0 simvastatin [Zocor] 40 mg Tablet 20 mg PO HS RF: 0 acetaminophen [Tylenol Arthritis Pain] 650 mg Tablet Extended Release 650 mg PO DIRECTED PRN (Reason: Pain) RF: 0 lorazepam [Ativan] 0.5 mg Tablet 0.5 mg PO TID PRN (Reason: Anxiety) RF: 0 nitroglycerin [Nitrostat] 0.4 mg Tablet, Sublingual 0.4 mg sublingual DIRECTED PRN (Reason: Chest Pain) RF: 0 hydrochlorothiazide 25 mg Tablet 12.5 mg PO QAM PRN (Reason: Edema) RF: 0 estradiol [Estrace] 0.5 mg Tablet 0.5 mg PO 4XWK RF: 0 albuterol sulfate [Proventil HFA] 90 mcg/actuation Hfa Aerosol Inhaler 2 puff INHALATION Q4 PRN (Reason: Wheezing) RF: 0 dicyclomine 10 mg Capsule 10 mg PO BIDM RF: 0 cholecalciferol (vitamin D3) [Vitamin D3] 2,000 unit Capsule 2,000 unit PO QAM RF: 0 pantoprazole [Protonix] 40 mg tablet,delayed release (DR/EC) 40 mg PO QAM RF: 0 atenolol [Tenormin] 50 mg tablet 50 mg PO AMHS RF: 0 potassium gluconate 595 mg (99 mg) Tablet 595 mg PO DAILY RF: 0 sucralfate [Carafate] 1 gram Tablet 1 g PO ACHS PRN (Reason: Acid Reflux) RF: 0 Benefiber (guar gum) Packet 1 tbsp PO TIDM RF: 0 conjugated estrogens 0.625 mg/gram Cream 0.3125 mg VAGINAL 2XWK RF: 0 clotrimazole-betamethasone 1-0.05 % cream 1 applic TOPICAL BID RF: 0 ibuprofen 200 mg Tablet 400 mg PO DIRECTED PRN (Reason: Pain) RF: 0 desonide 0.05 % Lotion 1 applic TOPICAL BID PRN (Reason: AFFECTED AREA) RF: 0 fluocinolone and shower cap 0.01 % oil 1 ea TOPICAL DAILY PRN (Reason: ITCHINESS OF EXTERNAL EAR.) RF: 0 diclofenac sodium [Voltaren] 1 % Gel 2 g TOPICAL BID PRN (Reason: Pain) RF: 0 Xiidra 5 % Dropperette 1 drp OPHTHALMIC (EYE) BID RF: 0 magnesium oxide 400 mg magnesium Tablet 0 mg PO DAILY RF: 0 ondansetron 4 mg tablet,disintegrating 4 mg sublingual Q6H PRN (Reason: nausea and vomiting) RF: 0 cyanocobalamin (vitamin B-12) [Vitamin B-12] 1,000 mcg Tablet 1,000 mcg PO QDD RF: 0 colestipol [Colestid] 1 gram tablet 1 g PO BID RF: 0 Cbd Gummies 0 tab PO DIRECTED RF: 0 Culturelle 15 billion cell Capsule, Sprinkle 1 cap PO BIDM RF: 0 diltiazem HCl 120 mg Capsule,Extended Release 24 Hr 120 mg PO QAM RF: 0 Discharge Orders: Discharge Order (Routine); Ordered 05/28/21 Ordered By: Brett Carlson Admission Data Admit Date/Time: 05/27/21 14:41 Attending Provider: Brett Carlson Admit Provider: Josh Galindo Primary Care Provider: Anders Crawley Other Providers: Josh Galindo ; Kai Harrison Erica K. ; Fied Yang ; Inge Lyles ; Zach Calderón
[2021-05-28] MEDS: CYANOCOBALAMIN (B-12) 500 MCG TABLET PO SCH (16:07)
[2021-05-29] MEDS ORDERED: estradioL 1 MG TAB PO SCH (09:00)
== END 2021-05-28 17:10 | disposition home or self-care (01) ==
LOC: ED 11:38 → 2S 11:38 → SUATTDRO 14:41 → 2S 15:17

== ENCOUNTER 2024-08-01 10:14 | Inpatient (IN) ==
[2024-08-01 10:22] VITALS: RESP 18
--- NOTE | 2024-08-01 10:39 | Emergency Department Note ---
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 consulted by the Advanced Practice Provider and was substantively involved in the patient's visit.This includes aspects of the HPI, MDM, diagnostic interpretations, and disposition/plan. I discussed the case with the CELIA and agree with the findings and plan as documented in CELIA Bamat's note.
[2024-08-01] MEDS: OPTIRAY 320 125ml IV ONE (11:01)
[2024-08-01 11:03] LABS: Basophils # (auto) 0.04 K/uL (0.00-0.20); Basophils % (auto) 0.8 %; Eosinophils # (auto) 0.04 K/uL (0.00-0.50); Eosinophils % (auto) 0.8 %; Hematocrit (blood only) 45.6 % (37.0-47.0); Hemoglobin 15.3 g/dl (12.0-16.0); Immature Granulocytes # (auto) 0.01 K/uL (0.01-0.20); Immature Granulocytes % (auto) 0.2 %; Lymphocytes # (auto) 1.56 K/uL (1.20-3.40); Mean Corpuscular Hemoglobin 31.5 pg (25.0-34.0); Mean Corpuscular Hgb Conc 33.6 g/dL (32.0-36.0); Mean Corpuscular Volume 93.8 fL (80.0-100.0); Mean Platelet Volume 10.2 fL (9.4-12.4); Monocytes # (auto) 0.35 K/uL (0.11-0.59); Neutrophils # (auto) 3.03 K/uL (1.40-6.50); Neutrophils % (auto) 60.2 %; Platelet Count 228 K/uL (130-400); RDW Coefficient of Variation 12.7 % (11.5-14.5); RDW Standard Deviation 43.8 fL (36.4-46.3); Red Blood Count 4.86 M/uL (4.20-5.40); White Blood Count 5.03 K/ul (4.8-10.8)
[2024-08-01 11:15] LABS: Albumin Globulin Ratio 1.6 (0.9-2); Albumin Level 4.4 gm/dl (3.4-5.0); BUN Creatinine Ratio 9.1 (10-20); Bilirubin,Total 0.5 mg/dl (0.2-1.0); Calcium 9.4 mg/dl (8.6-10.3); Creatinine Clr Calc Pharmacy 52.8 ml/min; Globulin 2.7 gm/dl (2.5-4.0); Magnesium 2.1 mg/dl (1.7-2.4); Potassium 3.8 mmol/L (3.5-5.1); Total Protein 7.1 gm/dl (6.0-8.3)
--- NOTE | 2024-08-01 11:20 | CT Scan Report ---
CT head/brain wo con CLINICAL HISTORY: memory issues, L side of face/arm. TECHNIQUE: Multiple axial CT images of the head were obtained without contrast. A dose lowering tech nique was utilized adhering to the principles of ALARA. COMPARISON: 04/04/2024 FINDINGS: There is mild motion artifact. No intracranial hemorrhage seen. No mass effect, midline michelle ft, or hydrocephalus. No skull fracture seen. Visualized paranasal sinuses and mastoid air cells are clear. IMPRESSION: No acute findings. ACT 112: Negative or not required by law. The above report was generated using voice recognition software. It may contain grammatical, syntax o r spelling errors. Electronically signed by: Kai Juarez M.D. 08/01/2024 11:19 AM
[2024-08-01 11:21] LABS: Troponin I High Sensitivity 2.5 pg/ml (0-14)
--- NOTE | 2024-08-01 11:25 | CT Scan Report ---
CT angio neck with con, CT angio head w con CLINICAL HISTORY: memory issues, memory issues, L side of face/arm. COMPARISON STUDY: 04/04/2024 TECHNIQUE: Following the IV administration of 120 of Optiray, CT angiogram of the neck was performed from the aortic arch to the skull base. Images are reviewed in the axial, sagittal, and coronal plane s. 3-D MIPS images are created and assessed. IV contrast was administered without complication. All m easurements were calculated based on NASCET criteria. A dose lowering technique was utilized adherin g to the principles of ALARA. CT DOSE: 2308.17 mGy.cm FINDINGS: There are carotid bulb calcifications and calcifications distally at the internal carotid a rteries. No significant narrowing or occlusion seen at the common or internal carotid arteries bilate rally. Left vertebral artery is dominant and the right vertebral artery is diminutive beyond PICA, st able anatomic variant. Basilar artery is patent. The anterior, middle, and posterior cerebral arterie s are patent bilaterally. There is origin of the right CANVAS MARKER, anatomic variant. Cerebral venous s inuses opacify normally. IMPRESSION: No significant arterial narrowing or occlusion seen at the neck or brain. ACT 112: Negative or not required by law. The above report was generated using voice recognition software. It may contain grammatical, syntax o r spelling errors. Electronically signed by: Kai Juarez M.D. 08/01/2024 11:24 AM
[2024-08-01 11:28] LABS: INR 0.9 (0.9-1.1); Partial Thromboplastin Ratio 0.9; Partial Thromboplastin Time 25 Seconds (21-31); Prothrombin Time 10.1 Seconds (9.0-12.0)
--- NOTE | 2024-08-01 11:46 | CT Scan Report ---
CT angio chest dissec wo/w con HISTORY: 78 years-old Female with L sided arm pain, recent chest pain. Acute left-sided chest pain TECHNIQUE: Multiple CTA images of the chest were obtained before and after the intravenous administra tion of 120 ml Optiray. Coronal and sagittal MIPS were obtained from the axial data set and were sub mitted for review. All measurements were obtained according to NASCET criteria. A dose lowering tech nique was utilized adhering to the principles of ALARA. COMPARISON: CTA chest 04/04/2024, CT abdomen and pelvis 02/21/2021 FINDINGS: CTA: The noncontrast scan demonstrates no intramural or mediastinal hematoma. A left subclavian pacer is p resent. The heart is upper limits of normal in size. No pericardial effusion. Moderate to extensive c oronary artery calcifications. Atherosclerosis of the aorta without aneurysm or dissection. No pulmon jazmine emboli identified. CT CHEST: No thyroid nodules. There is no lymphadenopathy. No pneumothorax, pleural effusion, airspace consolid ation or pulmonary edema. Resolution of the previously described 5 mm nodule within the left lower lo be. Mild pulmonary emphysema. Central airways are patent. Postoperative changes of the stomach. Colonic diverticulosis. No acute upper abdominal abnormality. N o acute fracture. IMPRESSION: 1. Cardiomegaly with left subclavian pacer. 2. No aortic aneurysm or dissection. 3. Mild emphysema without acute intrathoracic abnormality. 4. Resolution of the previously described infectious or inflammatory left lower lobe pulmonary nodule seen on the 04/04/2024 exam. ACT 112: Negative or not required by law. The above report was generated using voice recognition software. It may contain grammatical, syntax o r spelling errors. Electronically signed by: Wilbur Khan M.D. 08/01/2024 11:44 AM
[2024-08-01 12:10] LABS: Appearance Urine Clear (Clear); Bilirubin Urine Negative (Negative); Blood Urine Negative (Negative); Color Urine Yellow; Glucose Urine UA Negative (Negative); Ketones Urine Negative (Negative); Leukocyte Esterase Urine Negative (Negative); Nitrite Urine Negative (Negative); Protein Urine Negative (Negative); Specific Gravity Urine > 1.045 (1.000-1.030); Urobilinogen Urine Negative (Negative)
--- NOTE | 2024-08-01 12:15 | History & Physical Report ---
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 Made stroke alert in the ED. Head CT and head/neck CTA did not reveal any acute abnormalities. Seen and evaluated by [facility] neurologist. No indication for TNK. Recommended to continue ASA 81mg daily. Full stroke work-up pending and includes the following: brain MRI, TTE, neurology consult, AM lipid panel/Hgb A1c, speech therapy evaluation, PT/OT evaluations. (2) Chest pain: Plan: Reports an episode of midsternal chest pain radiating into the back about 2 weeks ago which was relieved by SL nitroglycerin x 1. Given this history and considering her prior cardiac events, chest CTA with dissection protocol was obtained in the ED which came back with no acute abnormalities. Initial HS troponin negative. EKG with no acute ST changes. Trend HS troponin Q6H x 3. Appreciate cardiology consult for possible stress testing therefore will keep patient NPO after MN. (3) NOEL (generalized anxiety disorder): Plan: Chronic issues with anxiety. Uses PRN Ativan and CBD/THC gummies. Increased anxiety possibly contributing to above presentation. Continue PRN Ativan and BuSpar. (4) Chronic diastolic (congestive) heart failure: Plan: Appears euvolemic on exam. Continue BENCH MACHINE OPERATOR Lasix and KCl doses. Daily weights. Strict I&Os. HH, low sodium diet. Closely monitor volume status. (5) HTN (hypertension): Plan: Continue BENCH MACHINE OPERATOR antihypertensives with routine BP monitoring and hold parameters. (6) Ischemic heart disease: Plan: Continue BENCH MACHINE OPERATOR statin and ASA. Follows with [facility] cardiology as an outpatient. DVT Prophylaxis: SQ Heparin Code Status: FULL CODE - As per direct discussion with the patient at bedside in the ED. PCP: BENJY Lindquist Disposition: Admit to med/telemetry for further inpatient evaluation and management. Patient seen in collaboration with Dr. Leon. Please see addendum. I spent a total of 62 minutes coordinating, documenting, and providing care for this patient excluding time spent in the performance of separately billed se rvices or time spent by another provider/QHP. This included personally reviewing all current laboratories and imaging studies, medical reconciliation, outpatient chart review and discussion with specialists. This chart was completed in part utilizing Speech Voice Recognition Software. Grammatical errors, random word insertions, pronoun errors, and incomplete sentences are an occasional consequence of this system due to software limitations, ambient noise, and hardware issues. Any formal questions or concerns about the content, text, or information contained within the body of this dictation should be directly addressed to the provider for clarification. 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 History obtained from the patient, patient's at bedside, discussion with ED provider and associated chart review. Patient seen at bedside in the ED with Dr. Leon. Endorses left-sided facial numbness which started this morning. Also having some pain in the inner aspect of her left arm. Reports she has been having some pain in the inner upper aspect of her left arm for the past few months however the pain started to travel down her entire arm beginning last evening. Denies any left upper extremity numbness or tingling. Has not noticed any changes in her extremity strength. Endorses bouts of double vision with twisting of her head over the past few days. Now feels the episodes of double vision have resolved however she notes her vision is "not entirely clear yet." Has noted her left eye is more watery than usual. Feels her vision is still "somewhat blurry." Also endorses some bilateral pretibial numbness which has been ongoing for the past few days. Reports a left-sided headache. Chronic intermittent headaches at baseline. Feels this is similar to her usual headaches. No recent falls or trauma. Does not typically use any ambulatory assistive devices. Had an episode of sharp pain between her shoulder blades about 2 weeks ago which was relieved by sublingual nitroglycerin x 1. No further episodes like this since then. Chronic dyspnea with exertion. Feels unchanged from baseline. No changes in her bowel habits. No urinary complaints such as dysuria, hematuria or increased urinary frequency. Denies any abdominal pain. Former smoker. Quit about 10 years ago. Rare alcohol use. Use CBD gummies. Took a gummy last evening that had THC in it. Endorses feeling very anxious. Usually takes 0.25mg of Ativan every morning. Allergies Allergy/AdvReac Type Severity Reaction Status Date / Time adhesive Allergy Intermediate Rash Verified 05/23/22 18:04 chlorhexidine Allergy Intermediate ITCHY RASH Verified 05/23/22 18:04 ibuprofen Allergy Intermediate SWELLING/ITCHY Verified 05/23/22 18:04 HIVES WITH 600 MG TABS PER PT. latex Allergy Intermediate Rash Verified 05/23/22 18:04 alprazolam AdvReac Intermediate HEADACHE Verified 05/23/22 18:04 epinephrine AdvReac Intermediate HEART RACES Verified 05/23/22 18:04 escitalopram AdvReac Intermediate ITCHING/SAIDA Verified 05/23/22 18:04 MACI paroxetine [From Paxil] AdvReac Intermediate FOGGY/VISUAL Verified 05/23/22 18:04 IMPAIRMENT Home Medications Medication Instructions Recorded Confirmed Type albuterol sulfate 90 mcg/actuation 2 puff inhalation Q4 PRN 06/16/18 08/01/24 History aerosol inhaler (Proventil HFA) SOB/Wheezing aspirin 81 mg tablet,delayed 81 mg PO QPM 06/16/18 08/01/24 History release (Katelyn Low Dose Aspirin) buspirone 5 mg tablet 5 mg PO BID 06/16/18 08/01/24 History cholecalciferol (vitamin D3) 50 2,000 unit PO QAM 06/16/18 08/01/24 History mcg (2,000 unit) capsule (Vitamin D3) dicyclomine 10 mg capsule 10 mg PO BIDM PRN DIARRHEA/ABD PAIN 06/16/18 08/01/24 History estradiol 0.5 mg tablet (Estrace) 0.5 mg PO 4XWK 06/16/18 08/01/24 History lorazepam 0.5 mg tablet (Ativan) 0.25 - 0.5 mg PO TID PRN Anxiety 06/16/18 08/01/24 History nitroglycerin 0.4 mg sublingual 0.4 mg sublingual DIRECTED PRN 06/16/18 08/01/24 History tablet (Nitrostat) Chest Pain atenolol 50 mg tablet (Tenormin) 50 mg PO AMHS 08/01/19 08/01/24 History cyanocobalamin (vitamin B-12) 1,000 mcg PO 3XWK 11/23/20 08/01/24 History 1,000 mcg tablet (Vitamin B-12) diltiazem HCl 120 mg capsule,24 120 mg PO QAM 12/23/20 08/01/24 History hr,extended release clotrimazole-betamethasone 1 1 applic topical BID PRN Skin 05/27/21 08/01/24 History %-0.05 % topical cream Irritation desonide 0.05 % lotion 1 applic topical BID PRN APPLY TO 05/27/21 08/01/24 History FACE NEEDED. diclofenac sodium 1 % topical gel 2 g topical BID PRN Pain 05/27/21 08/01/24 History ibuprofen 200 mg tablet 200 - 400 mg PO DIRECTED PRN 05/27/21 08/01/24 History Pain magnesium oxide 400 mg PO DAILY PRN LEG CRAMPS 05/27/21 08/01/24 History ondansetron 4 mg disintegrating 4 mg sublingual Q6H PRN nausea and 05/27/21 08/01/24 History tablet vomiting docusate sodium 50 mg capsule 50 mg PO BID PRN Constipation 05/23/22 08/01/24 History erythromycin 5 mg/gram (0.5 %) eye 1 applic OPB TID PRN Other 05/23/22 08/01/24 History ointment estradiol 0.01% (0.1 mg/gram) 1 applic vaginal 3XWK 05/23/22 08/01/24 History vaginal cream fluconazole 150 mg tablet 150 mg PO Q3D PRN NEEDED PER [facility] 05/23/22 08/01/24 History guar gum 1 tbsp PO DAILY 05/23/22 08/01/24 History polyethylene glycol 3350 17 17 g PO DAILY 05/23/22 08/01/24 History gram/dose oral powder (Miralax) prednisone 10 mg tablet 10 mg PO DIRECTED PRN NEEDED 05/23/22 08/01/24 History PER [facility] Pepto-Bismol 1 tab PO DIRECTED PRN Other 08/01/24 08/01/24 History atorvastatin 20 mg tablet 20 mg PO QAM 08/01/24 08/01/24 History azithromycin 250 mg tablet 250 mg PO UD PRN Other 08/01/24 08/01/24 History furosemide 20 mg tablet 10 mg PO QAM 08/01/24 08/01/24 History metronidazole 1 % topical gel 1 applic topical DAILY PRN Other 08/01/24 08/01/24 History potassium chloride 10 mEq 10 meq PO DAILY 08/01/24 08/01/24 History capsule,extended release tizanidine 2 mg tablet 2 mg PO DAILY PRN Muscle Spasm 08/01/24 08/01/24 History Past Med/Surg History Problem List Ischemic heart disease Chronic diastolic (congestive) heart failure Stroke-like symptoms Adjustment disorder with anxiety NOEL (generalized anxiety disorder) Depression Encounter for pre-operative examination Diverticulitis large intestine Asthma (Chronic) Chest pain Abnormal nuclear stress test Ischemic heart disease, chronic C. difficile colitis Chest pain (Acute) Cholecystitis with cholelithiasis HTN (hypertension) (Chronic) Anxiety (Chronic) History of PTCA (Chronic) History of cataract extraction (Chronic) Pacemaker (Chronic) placed approx 5 years ago; SSS; medtronic - checked within last 2 mo IBS (irritable bowel syndrome) (Chronic) Diverticulosis of colon (Chronic) GERD (gastroesophageal reflux disease) (Chronic) SSS (sick sinus syndrome) (Chronic) Medical History HLD (hyperlipidemia) History of Clostridioides difficile infection 11/2020; pt reports symptoms resolved. History of recent hospitalization 11/2020; c.diff, cholecystitis Asthma rare use of PRN inh Osteoarthritis DDD (degenerative disc disease) On anticoagulant therapy Dry eye CAD (coronary artery disease) per outpatient cardio note: History of anterior wall MN at age 45, PTCA of the LAD at that time. Abnormal stress testing in March 2004 with repeat catheterization on 04-09-04 demonstrating nonobstructive CAD with a total chronic occlusion of a 2nd diagonal branch and mild CAD elsewhere. Cardiac catheterization in July 2016 demonstrating the chronic total occlusion of a diagonal branch with [id number] collaterals, 30% ostial RCA stenosis, and 30% mid RCA stenosis. LVEDP normal, 8 mmHg. Presentation to [facility] May 2018 with unstable angina. Diagnostic cardiac catheterization with severe single-vessel coronary artery disease with an 80% mid RCA stenosis for which she underwent PCI, 3.0 x 18 mm drug-eluting stent implantation by Dr. Mclaughlin Admission to [facility] in October 2018 with unstable angina, status post November 16, 2018 cardiac catheterization which demonstrated a severe, moderately calcified, 70% ostial right coronary artery stenosis with catheter dampening noted on engagement, status post successful PCI the ostial RCA with a single 3.0 x 12 Xience Eda drug-eluting stent. The previously placed mid RCA stent was noted to be patent. Chronic diagonal occlusion with collaterals. Surgical History History of mandibular surgery History of cardiac catheterization 2020 MN - 2 stents placed (1 stent x 2 procedures) age 45 - angioplasty History of tooth extraction History of esophagogastroduodenoscopy (EGD) History of colonoscopy Family History Father Lung cancer Mother Hypertension Other No family history of adverse response to anesthesia Social History Smoking Status: Never smoker Tobacco Type: Cigarettes Second Hand Exposure: No; Do You Dip or Chew Tobacco: No; Hx Alcohol Use: No Hx Substance Use: No (CBD/THC gummies) Preferred Language: Kittitian Communication Ability: Effective [employer] Required: No Beliefs That Will Affect Care: None marital status: Current Living Situation: Spouse Current Living Situation Comment: independent 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 Physical Exam Physical Exam: Please refer to Dr. Leon's addendum for physical examination findings. Results & Data Results & Data Vital Signs (Past 12 Hours) Vital Signs Temp Pulse Resp BP Pulse Ox O2 Del Method 08/01/24 11:25 62 08/01/24 10:16 36.2 C L 72 18 161/91 H 98 Room Air Laboratory Results Short CBC 08/01/24 Range/Units 10:42 WBC 5.03 (4.8-10.8) K/ul Hgb 15.3 (12.0-16.0) g/dl Hct 45.6 (37.0-47.0) % Plt Count 228 (130-400) K/uL BMP 08/01/24 10:42 Sodium 139 Potassium 3.8 Chloride 105 Carbon Dioxide 29 BUN 7 Creatinine 0.77 Glucose 139 H Calcium 9.4 Liver Function 08/01/24 Range/Units 10:42 Total Bilirubin 0.5 (0.2-1.0) mg/dl AST 19 (13-39) U/L ALT 10 (7-52) U/L Alkaline Phosphatase 101 (34-104) U/L Albumin 4.4 (3.4-5.0) gm/dl Urine 08/01/24 Range/Units 11:51 Urine Color Yellow Urine Appearance Clear (Clear) Urine pH 6.0 (4.5-7.5) Ur Specific Mcleod > 1.045 H (1.000-1.030) Urine Protein Negative (Negative) Urine Glucose (UA) Negative (Negative) Diagnostic Findings Head CT 08/01/24 10:29 CT head/brain wo con CLINICAL HISTORY: memory issues, L side of face/arm. TECHNIQUE: Multiple axial CT images of the head were obtained without contrast. A dose lowering technique was utilized adhering to the principles of ALARA. COMPARISON: 04/04/2024 FINDINGS: There is mild motion artifact. No intracranial hemorrhage seen. No mass effect, midline shift, or hydrocephalus. No skull fracture seen. Visualized paranasal sinuses and mastoid air cells are clear. IMPRESSION: No acute findings. ACT 112: Negative or not required by law. The above report was generated using voice recognition software. It may contain grammatical, syntax or spelling errors. Electronically signed by: Kai Juarez M.D. 08/01/2024 11:19 AM Head CTA 08/01/24 10:29 CT angio neck with con, CT angio head w con CLINICAL HISTORY: memory issues, memory issues, L side of face/arm. COMPARISON STUDY: 04/04/2024 TECHNIQUE: Following the IV administration of 120 of Optiray, CT angiogram of the neck was performed from the aortic arch to the skull base. Images are reviewed in the axial, sagittal, and coronal planes. 3-D MIPS images are created and assessed. IV contrast was administered without complication. All measurements were calculated based on NASCET criteria. A dose lowering technique was utilized adhering to the principles of ALARA. CT DOSE: 2308.17 mGy.cm FINDINGS: There are carotid bulb calcifications and calcifications distally at the internal carotid arteries. No significant narrowing or occlusion seen at the common or internal carotid arteries bilaterally. Left vertebral artery is dominant and the right vertebral artery is diminutive beyond PICA, stable anatomic variant. Basilar artery is patent. The anterior, middle, and posterior cerebral arteries are patent bilaterally. There is origin of the right TALK SHOW HOST, anatomic variant. Cerebral venous sinuses opacify normally. IMPRESSION: No significant arterial narrowing or occlusion seen at the neck or brain. ACT 112: Negative or not required by law. The above report was generated using voice recognition software. It may contain grammatical, syntax or spelling errors. Electronically signed by: Kai Juarez M.D. 08/01/2024 11:24 AM Neck CTA 08/01/24 10:29 CT angio neck with con, CT angio head w con CLINICAL HISTORY: memory issues, memory issues, L side of face/arm. COMPARISON STUDY: 04/04/2024 TECHNIQUE: Following the IV administration of 120 of Optiray, CT angiogram of the neck was performed from the aortic arch to the skull base. Images are reviewed in the axial, sagittal, and coronal planes. 3-D MIPS images are created and assessed. IV contrast was administered without complication. All measurements were calculated based on NASCET criteria. A dose lowering technique was utilized adhering to the principles of ALARA. CT DOSE: 2308.17 mGy.cm FINDINGS: There are carotid bulb calcifications and calcifications distally at the internal carotid arteries. No significant narrowing or occlusion seen at the common or internal carotid arteries bilaterally. Left vertebral artery is dominant and the right vertebral artery is diminutive beyond PICA, stable anatomic variant. Basilar artery is patent. The anterior, middle, and posterior cerebral arteries are patent bilaterally. There is origin of the right TALK SHOW HOST, anatomic variant. Cerebral venous sinuses opacify normally. IMPRESSION: No significant arterial narrowing or occlusion seen at the neck or brain. ACT 112: Negative or not required by law. The above report was generated using voice recognition software. It may contain grammatical, syntax or spelling errors. Electronically signed by: Kai Juarez M.D. 08/01/2024 11:24 AM Chest CTA 08/01/24 10:37 CT angio chest dissec wo/w con HISTORY: 78 years-old Female with L sided arm pain, recent chest pain. Acute left-sided chest pain TECHNIQUE: Multiple CTA images of the chest were obtained before and after the intravenous administration of 120 ml Optiray. Coronal and sagittal MIPS were obtained from the axial data set and were submitted for review. All measurements were obtained according to NASCET criteria. A dose lowering techniq ue was utilized adhering to the principles of ALARA. COMPARISON: CTA chest 04/04/2024, CT abdomen and pelvis 02/21/2021 FINDINGS: CTA: The noncontrast scan demonstrates no intramural or mediastinal hematoma. A left subclavian pacer is present. The heart is upper limits of normal in size. No pericardial effusion. Moderate to extensive coronary artery calcifications. Atherosclerosis of the aorta without aneurysm or dissection. No pulmonary emboli identified. CT CHEST: No thyroid nodules. There is no lymphadenopathy. No pneumothorax, pleural effusion, airspace consolidation or pulmonary edema. Resolution of the previously described 5 mm nodule within the left lower lobe. Mild pulmonary emphysema. Central airways are patent. Postoperative changes of the stomach. Colonic diverticulosis. No acute upper abdominal abnormality. No acute fracture. IMPRESSION: 1. Cardiomegaly with left subclavian pacer. 2. No aortic aneurysm or dissection. 3. Mild emphysema without acute intrathoracic abnormality. 4. Resolution of the previously described infectious or inflammatory left lower lobe pulmonary nodule seen on the 04/04/2024 exam. ACT 112: Negative or not required by law. The above report was generated using voice recognition software. It may contain grammatical, syntax or spelling errors. Electronically signed by: Wilbur Khan M.D. 08/01/2024 11:44 AM Medications Administered Discontinued Medications Ioversol (Optiray 320 125ml) 120 ml IV ONCE ONE Stop: 08/01/24 11:01 Last Admin: 08/01/24 11:01 Dose: 120 ml Documented By: JAR Code Status & VTE Plan Code Status FULL CODE Supervising Physician Co-Signing Physician Notes Presents with complaints of stroke like symptoms Reports abnormal sensation/feeling on left side of face since today, blurred/double vision yesterday Reports chronic intermittent left sided headache Reports chronic intermittent left arm 'hurt'/pain that extended to left forearm and hand today Reports she had central upper back pain few weeks ago that resolved with nitro On exam, General: Very anxious elderly woman in no distress Eyes: PERRL, conjunctivae normal, not pale, anicteric sclerae, EOM intact bilaterally ENMT: External ear and nose normal, oropharynx normal Respiratory: Normal respiratory effort, no respiratory distress, lungs clear to auscultation, no crackles and no wheezes Cardiovascular: RRR S1 S2 Gastrointestinal (Abdomen): Abdomen is not distended, soft, non-tender to palpation, no guarding, no palpable hepatosplenomegaly, normal bowel sounds Musculoskeletal: Trace ankle edema Neurologic: Alert and oriented x 3, No focal weakness, sensation grossly intact Psychiatric: Anxious affect Labs only notable for BG of 139 CT head/CTA Head and neck did not show acute abnormalities Concern for stroke Continue stroke workup with MRI Brain PT/OT/DIRECTOR SUPPLY CHAIN Get TTE, lipid panel, HbA1c If stroke workup is negative, consider psych eval Continue prn ativan Considering cardiac hx, reports of left arm pain and back pain that resolved with nitro, will get Cards eval. Trend trop. Keep NPO PMN incase stress test is needed Other plans as detailed by Lucy Larkin PA-C I spent a total of 40 minutes coordinating, documenting and providing care for this patient excluding time spent in performance of separately billed services (2) Chest pain Chest pain type: other chest pain Qualified Code(s): R07.89 - Other chest pain (5) HTN (hypertension) Hypertension type: essential hypertension Qualified Code(s): I10 - Essential (primary) hypertension
[2024-08-01] MEDS: ASPIRIN 81 MG ECTAB PO STA (12:29)
--- OUTSIDE RECORDS SUMMARY | 2024-08-01 14:16 | External Medical Summary | Summary of Care ---
Author Name Unknown Organization [facility] Address [address] [place] [address] Phone [phone] Care Team Providers Care Shake Cutter Name Role Phone Rosalinda Petersonlle BENJY Primary Care Provider Reason for Visit * Reason Onset Date Comments Medication Question 04/28/2024 Encounter Details Date Type Department Care Team (Late st Contact Info) Description 04/28/2024 Telephone Access Center, [place] [address] [facility] *DO NOT REMOVE THIS DEPARTMENT* [place] [address] Services, Scheduling [address] [place] [address] Medication Question Allergies Active Allergy Reactions Criticality Noted Date Comments Adhesive Tape 05/27/2021 Other reaction(s): Rash Chlorhexidine Low 12/30/2020 Other reaction(s): rash, itching Escitalopram Oxalate Itching,Other (Please comment) 09/07/2011 Jittery Ibuprofen 05/19/2022 Swelling, redness, hives Pt states she cannot tolerate motrin 600mg abut can take lower doses Latex 03/18/2011 Rash Paroxetine Hcl 10/24/2015 Foggy/visual impairment documented as of this encounter (statuses as of 07/29/2024) Medications TYLENOL ARTHRITIS PAIN 650 MG PO TBCR Take 1 Tablet by mouth daily. Active Cholecalciferol (VITAMIN D) 2000 UNITS Capsule Take 1 Capsule by mouth in the morning. Active loperamide (IMODIUM) 2 MG Capsule Take 1 Capsule by mouth as needed for Diarrhea. Active aspirin enteric coated 81 MG TBECIndications:ta kes in the evening Take 1 Tablet by mouth at bedtime. Active Cyanocobalamin (B-12) 500 MCG TABS Take by mouth 2 times a day. Taking daily Active Benefiber Oral Powder Take by mouth daily . Tablespoon full Active Albuterol Sulfate HFA 108 (90 Base) MCG/ACT Inhalation Aerosol SolutionIndication s:Moderate persistent asthma without complication Inhale 2 Puffs by mouth every 4 hours as needed for Wheezing. 54 g 3 1 Active AMBULATORY MISCELLANEOUS MEDICATION 03/25 CBD gummy once daily for anxiety Active Polyethylene Glycol 3350 17 GM Oral Packet Take 1 Packet by mouth in the morning. Active Docusate Sodium 50 MG Oral Capsule Take 1 Capsule by mouth as needed for Constipation. Active Nitroglycerin 0.4 MG Sublingual Tablet Sublingual (Nitrostat)Indicat ions:ASCVD (arteriosclerotic cardiovascular disease) Place 1 Tablet under the tongue every 5 minutes as needed for Pain, Chest. 75 Tablet 2 04/17/2023 8:47 AM EST 3 Active Probiotic & Acidophilus Ex St Oral Capsule Take 1 Capsule by mouth every evening. Active Ibuprofen 200 MG Oral Tablet (Motrin) Take 1 Tablet by mouth every 4 hours as needed. Active dilTIAZem HCl ER Coated Beads 120 MG Oral Capsule Extended Release 24 Hour (Cardizem CD)Indications:ASC VD (arteriosclerotic cardiovascular disease),HTN, goal below 140/90 TAKE ONE CAPSULE BY MOUTH EVERY DAY 90 Capsule 3 05/31/2024 4:08 PM EDT 4 025 Active predniSONE 20 MG Oral Tablet (Deltasone)Indicat ions:Acute maxillary sinusitis, recurrence not specified Take 1 Tablet by mouth in the morning. Uses as a rescue kit. 5 Tablet 4 Active Estradiol 0.5 MG Oral Tablet (Estrace)Indicatio ns:Need for prophylactic hormone replacement therapy (postmenopausal) TAKE ONE TABLET BY MOUTH EVERY DAY ON SUNDAYS, TUESDAYS, THURSDAYS AND SATURDAYS 90 Tablet 2 06/27/2024 3:00 PM EDT 4 Active busPIRone HCl 5 MG Oral Tablet (Buspar)Indication s:Anxiety TAKE ONE TABLET BY MOUTH TWICE A DAY 180 Tablet 3 05/29/2024 4:06 PM EDT 4 025 Active Bismuth Subsalicylate 262 MG/15ML Oral Suspension (Pepto-Bismol) Take 30 mL by mouth every 4 hours as needed. Active Fluocinolone Acetonide Scalp 0.01 % External Oil ([place]-Smoothe/FS Scalp) Apply to external ears as needed for itching. 118.28 mL 01/13/2024 2:17 PM EDT 4 Active Clotrimazole-Betam ethasone 1-0.05 % External Cream (Lotrisone) Apply topically to affected area 2 times a day. 45 g 02/11/2024 12:39 PM EST 4 Active Atenolol 50 MG Oral Tablet (Tenormin)Indicati ons:ASCVD (arteriosclerotic cardiovascular disease) TAKE ONE TABLET BY MOUTH TWICE A DAY 180 Tablet 3 05/22/2024 10:00 AM EST 4 025 Active metroNIDAZOLE 1 % External Gel (Metrogel)Indicati ons:Rosacea Apply to face daily after washing with soap and water and then use SPF 30 daily 60 g 2 04/07/2024 3:14 PM EST 5 Active Atorvastatin Calcium 20 MG Oral Tablet (Lipitor) Take 1 Tablet by mouth at bedtime. 90 Tablet 3 06/30/2024 12:48 PM EDT 5 Active LORazepam 0.5 MG Oral Tablet (Ativan)Indication s:NOEL (generalized anxiety disorder) Take 1 Tablet by mouth daily as needed for Anxiety. 90 Tablet 5 Active Furosemide 20 MG Oral Tablet (Lasix)Indications :Lower extremity edema Take one-half Tablet by mouth in the morning. 100 Tablet 3 06/15/2024 10:06 AM EDT 5 Active cycloSPORINE 0.05 % Ophthalmic Emulsion (Restasis) Instill 1 Drop into both eyes in the morning and 1 Drop before bedtime. 60 Each 11 04/28/2024 5:47 PM EST 5 026 Active documented as of this encounter (statuses as of 07/29/2024) Active Problems Problem Noted Date Diagnosed Date Chronic diastolic congestive heart failure 04/14 Leg mass, right 04/13/2024 Leg cramping 07/12/2023 Leg swelling 08/26/2022 Advanced directives, counseling/discussion 03/10 Overview (07/20/2008): PROJECT: #[id number], FINANCIAL COUNSELOR: Angelito Chen MD SUMMARY: Patients with CHD are randomized to darapladib (Lp-PLA2 inhibitor) or placebo in addition to standard of care medications to evaluate incidence of major coronary events. CONTACTS: During normal business hours, contact Clincal Research Coordinator at appropriate clinic location, after hours on-call Clinical Research Coordinator via the [facility] hospital wreath machine operator ([phone]). The study sponsor can be reached at: Prolapse of vaginal vault after hysterectomy Rectocele 09/13/2020 History of cigarette smoking 09/13/2020 Overview (09/13/2020): 30 pack year Diverticulosis of large intestine without hemorr lucy 08/02/2019 Cystocele, lateral 06/28/2018 NOEL (generalized anxiety disorder) 05/23/2018 ASCVD (arteriosclerotic cardiovascular disease) 03/09/2018 Cardiac pacemaker in situ 11/12/2017 Sick sinus syndrome 11/11/2017 Old MT (myocardial infarction) 11/11/2017 Peripheral vascular disease 10/01/2017 HTN, goal below 130/80 10/03/2015 Anemia due to vitamin B12 deficiency 08/26/2015 Vitamin D deficiency 08/26/2015 DDD (degenerative disc disease), cervical 2013 Gastroesophageal reflux disease with esophagitis 12/21/2011 IBS (irritable bowel syndrome) 06/11/2011 Dyslipidemia 02/28/2009 Overview (02/28/2009): Per Lipid Taxonomy. Generalized osteoarthritis Rosacea documented as of this encounter (statuses as of 07/29/2024) Resolved Problems Problem Noted Date Diagnosed Date Resolved Date Chronic diarrhea 06/29/2024 07/14/2024 Rectal itching 06/29/2024 07/14/2024 Heart failure, diastolic, wi th acute decompensation 04/14/2024 07/11/2024 Depression, unspecified 12/23/2022 12/0 06/2022 Migraine with aura, not intr actable, without status migrainosus 07/07/2022 07/05/2023 Hematuria, gross 03/04/2021 04/13/2024 History of UTI 03/04/2021 04/13/2024 Coronary artery disease invo lving red devil coronary artery of red devil heart with unstable angina pectoris 07/18/2020 04/06/2023 Gastroesophageal reflux dise ase without esophagitis 06/11/2020 03/31/2022 Pain, dental 12/04/2017 06/24/2018 Visual loss 03/29/2017 10/01/2017 Headache, unspecified headache type 03/29/2017 11/11/2017 Neck discomfort 03/29/2017 10/01/2017 Abdominal pain, right upper quadrant 09/04/2016 12/07/2016 Chest pain, non-cardiac 08/09/2016 040 07/2018 Overview (08/10/2016): Cath [facility] 07/2016 with no changes - old ROPEMAN Diagonal Abnormal nuclear stress test 07/27/2016 11/11/2017 Overview (08/10/2016): anterolat ischemia on nuclear 07/2016, totally expected as she has chronic total diagnonal occlusion Moderate persistent asthma w ithout complication 04/30/2016 05/19/2022 Viral URI with cough 03/01/2016 017 Coronary artery disease invo lving red devil coronary artery of red devil heart with unstable angina pectoris 10/03/2015 06/11/2020 Overview (08/10/2016): Copy Room Technician: Amador Barry PA-C Ramesh Hx Ant wall MT at the age of 45 s/p PTCA of the LAD at [place] S/p Cath 2010, with ROPEMAN of the diag 07/2016 [facility]: moderate ischemia in a large portion of the anterior lateral and lateral myocardium.EF 76% 07/2016 Cath [facility] for atyp back pain and abnl nuclear stress: Patent LAD and RCA, known ROPEMAN of the diagonal. Anxiety 05/21/2015 06/24/2018 Paraesophageal hernia 02/04/20152019 Cholelithiasis 11/05/2011 11/11/2017 Old myocardial infarct 10/11/200806/24 Overview (10/11/2008): Modified by Acute MT Protocol #5. Follow-up of anterolateral m yocardial infarction 10/11/2008 11/11/2017 No advance directive on file 06/03/2007 06/24/2018 Overview (06/03/2007): Yes, Patient instructed to provide copy of advance directive for provider to review and to be scanned into Electronic Medical Record No, Advance Directive brochure given to patient at prior appointment. Palpitations 06/09/2002 12/07/2016 Overview (08/09/2016): No correlation on holter 2016,likely anxiety F/u of anterior myocardial infarction 06/09/2002 10/11/2008 Overview (10/11/2008): Modified by Acute MT Protocol #5. CORONARY ATHEROSCLEROSIS VESSEL NOS 02/15/2002 10/03/2015 Dyslipidemia, goal to be determined 02/15/2002 02/13/2009 Overview (02/13/2009): Per Lipid Taxonomy DIVERTICULITIS OF COLON 07/21 PURE HYPERCHOLESTEROLEM 02/19 Overview (02/28/2009): Per Lipid Taxonomy. Acute MT, anterior wall 09/20 Overview (10/11/2008): Modified by Acute MT Protocol #5. 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, including hip 11/11/2017 documented as of this encounter (statuses as of 07/29/2024) Immunizations Name Administration Dates Next Due COVID-19 mRNA, LNP-s, No Pre serve, 2-Dose Series (Your Image by Brooke) 02/11/2021,06/10/2020,05/15/2020 COVID-19, MRNA-LNP, PF, 30 M CG/0.3 mL, 12 YRS AND ABOVE, IM (PFIZER-Comirnaty) 12/10/2023,06/17/2023 Covid-19, Mrna, Lnp-s, Pf, B ivalent, 30 Mcg, IM, 12 yrs and above (Pfizer) 12/04/2021 H1N1 2009 Influenza, IM 05/29/2009 Pneumococcal Conjugate Vacc, 13 Valent (Prevnar) 10/25/2014 Pneumococcal Polysaccharide PPV23 (Pneumovax) 12/12/2015,12/28/2005 RSV Vac., Bivalent, Perfusio n F, Pf,0.5 Ml (Abrysvo) 05/03/2023 Season Influenza, Quad, PF, Adjuvanted, 65+ Yrs, IM (FLUAD) 11/28/2019 Seasonal Influenza Vac., MDV , IM, 0.5 mL (Fluzone) 12/20/2013,12/12/2012,12/05/2011,12/16,01/22/2010,12/07/2008,01/05/2008 ,01/10/2007,12/28/2005 Seasonal Influenza, High Dos e, Trivalent, PF, IM (Fluzone HD) 12/10/2023 Seasonal Influenza, PF, 6 M & above, IM , (FluLaval or Fluzone) 12/12/2020,12/20/2017,01/13/2017 Seasonal Influenza, Quadriva lent Hd (Fluzone Hd) 11/24/2022,01/30/2022 Seasonal Influenza, Quadriva lent, No Preserve, IM 12/12/2015,12/24/2014 Seasonal Influenza, Trivalen t, Adjuvanted, 65+ YRS, PF, (Fluad) 12/23/2018 TD, Preservative Free 01/30/2010 TDAP (age 10 and older)(Boostrix) 12/07/2022, Varicella Zoster Vaccine Richar lt (Zostavax) 06/13/2008 Zoster Vaccine Recombinant (Shingrix) 09/13/2018 ,05/10/2018 documented as of this encounter Social History Tobacco Use Types Packs/Day Years Used Date Smoking Tobacco: Former Cigarettes 0.5 31 0 06/11/1983 - 06/10/2014 Passive Smoke Exposure: Past Smokeless Tobacco: Never Alcohol Use Standard Drinks/Week Comments Yes 0 (1 standard drink = 0.6 oz pur e alcohol) bloody vasile once a month or so AUDIT-C Answer Date Recorded Frequency of Alcohol Consumption Monthly or less 11/17/2019 Average Number of Drinks 1 or 2 020 Frequency of Binge Drinking Not on file 10/21 PHQ-2 Answer Date Recorded PHQ Adult Total Score 0 09/27/2023 Hunger Vital Sign Answer Date Recorded Within the past 12 months, y ou worried that your food would run out before you got the money to buy more. Never true 08/11/19 24 Within the past 12 months, t he food you bought just didn't last and you didn't have money to get more. Never true 08/11/2023 Childcare Answer Date Recorded Do you feel overwhelmed with taking care of a child, family member or friend? No 08/11/2023 Does your family need help f inding childcare? (Household - for ages 0-17 years) Not on file 08/11/2023 Clothing Answer Date Recorded Have you been unable to get clothing when it was really needed? No 08/11/2023 Is your family able to get c lothes or diapers when needed? (Household - for ages 0-17 years) Not on file 08/11/2023 Personal Safety Answer Date Recorded Do you feel unsafe or have concerns for your saf ety? No 08/11/2023 Do you have concerns for you r family's safety? (Household - for ages 0-17 years) Not on file 08/11/2023 Utilities Answer Date Recorded Do you have trouble paying y our heating, water, or electric bill? No 08/11/2023 Is your family able to pay t he heat, water, or electric bill? (Household - for ages 0-17 years) Not on file 08/11/2023 Does your family have access to good internet? (Household - for ages 0-17 years) Not on file 08/11/2023 Employment Status Answer Date Recorded Are you unemployed or without regular income? No 08/11/2023 Does the household have a re gular source of income? (Household - for ages 0-17 years) Not on file 08/11/2023 Social Connections Answer Date Recorded How often do you feel lonely or isolated from th ose around you? Never 08/11/2023 Financial Resource Strain Answer Date R ecorded Do you have any trouble payi ng for your medications, or do you think you might in the future? No 08/11/2023 Does your family have troubl e paying for medicine? (Household - for ages 0-17 years) Not on file 08/11/2023 Transportation Needs Answer Date Record ed READ ONLY Do you have troubl e getting a ride to medical visits or work? Never True 08/11/2023 Does your family have a hard time getting a ride to doctors visits? (Household - for ages 0-17 years) Not on file 08/11/2023 Has lack of transportation k ept you from medical appointments, meetings, work, or from getting things needed for daily living? Check all that apply. (Adult - for ages 18 years and over) Not on file 08/11/2023 Do you (or your family) have trouble finding or paying for a ride (transportation)? (Household - for ages 0-17 years) Not on file 08/11/2023 Housing Stability Answer Date Recorded Do you currently live in a s helter or have no steady place to sleep at night? No 08/11/2023 READ ONLY Do you think you a re at risk of becoming homeless? No 08/11/2023 Does your family worry about paying for your home or becoming homeless? (Household - for ages 0-17 years) Not on file 0 08/11/2023 Are you homeless or worried that you might be in the future? (Adult - for ages 18 years and over) Not on file Are you (or your family) wale eless or worried that you might be in the future? (Household - for ages 0-17 years) Not on file Food Insecurity Answer Date Recorded Do you need food for this week? No 08/11/2023 Are you able to get enough f ood for your family? (Household - for ages 0-17 years) Not on file 08/11/2023 Does your family need food t his week? (Household - for ages 0-17 years) Not on file 08/11/2023 Do you always have enough fo od for your family? (Household - for ages 0-17 years) Not on file 08/11/2023 Food Insecurity Answer Date Recorded Within the past 12 months, y ou worried that your food would run out before you got the money to buy more. Never true 08/11/19 24 Within the past 12 months, t he food you bought just didn't last and you didn't have money to get more. Never true 08/11/2023 Do you need food for this week? 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 Answer Date of Assessment Author No 02/04/2015 8:30 PM Kaylene Denton RN * Are you blind or do you have serious difficulty seeing, even when wearing glasses? Answer Date of Assessment Author No 02/04/2015 8:30 PM Kaylene Denton RN * Do you have serious difficulty walking or climbing stairs? (5 years old or older) Answer Date of Assessment Author No 02/04/2015 8:30 PM Kaylene Denton RN * Do you have difficulty dressing or bathing? (5 years old or older) Answer Date of Assessment Author No 02/04/2015 8:30 PM Kaylene Denton RN * Because of a physical, mental, or emotional condition, do you have difficulty doing errands alone such as visiting a doctor’s office or shopping? (15 years old or older) Answer Date of Assessment Author No 02/04/2015 8:30 PM Kaylene Denton RN documented as of this encounter Mental Status * Because of a physical, mental, or emotional condition, do you have serious difficulty concentrating, remembering, or making decisions? (5 years old or older) Answer Entry Date Author No 02/04/2015 8:30 PM Kaylene Denton, RN documented in this encounter Miscellaneous Notes * Telephone Encounter - Gabriella Linares LPN - 04/28/2024 2:50 PM EST Patient calling. She had trouble yesterday voiding. When her bowels have to move, puts pressure on everything and she has a hard time. She has an upcoming appt. With urogyne on Wednesday. She was wondering if she should stop the fluid pill and the potassium for the weekend., just to get her through until the appt. Informed not to stop the fluid and the potassium pill. Verbalized understanding. * Telephone Encounter - Carline Caballero OSA - 04/28/2024 2:47 PM EST Reason for patient's call: Pt calling with questions regarding current medications that she is on. Caller was transferred to Ann Dallas at the nurse line. documented in this encounter Plan of Treatment Upcoming Encounters Date Type Department Care Team (Late st Contact Info) Description 08/08/2024 11:30 AM EDT Office Visit Gastroenterology, [facility] [address] [phone] Aster Dawson CRNP [address] [place] [id number] 08/11/2024 9:30 AM EDT Cardiac Studies Cardiac Studies, [facility] [address] [place] [phone] 08/31/2024 9:40 AM EDT Office Visit Family Practice [facility] [address] [phone] Rosalinda Peterson CRNP [address] [place] [address] 11/14/2024 2:20 PM EDT Office Visit Family Practice [facility] [address] [place] [address] Rosalinda Peterson CRNP [address] [place] [address] 11/15/2024 1:00 PM EDT Hospital Encounter ENDO [facility], Endoscopy Room [facility] [address] [place] [phone] So Morris MD [address] [place] [address] 11/15/2024 1:00 PM EDT - 11/15/2024 1:30 PM EDT Surgery ENDO [facility], Endoscopy Room [facility] [address] [place] [phone] So Morris MD [address] [place] [address] COLONOSCOPY FLEXIBLE PROXIMAL DIAGNOSTIC 03/08/2025 3:00 PM EST Office Visit Cardiology, [facility] [address] [place] [phone] Valerie Ibrahim CRNP [address] [place] [address] 06/21/2025 10:15 AM EDT Office Visit Ophthalmology, [facility] [address] [place] [id number] Kenny Hector DO [address] [place] [address] Nurse [facility] [address] [place] [id number] Scheduled Procedures Name Priority Associated Diagnoses Date/Ti me COLONOSCOPY FLEXIBLE PROXIMAL DIAGNOSTIC Incontinence of feces, unspecified fecal incontinence type 11/15/2024 1:00 PM EDT Health Maintenance Due Date Last Done Comments DXA Scan 01/23/2023 01/24/2020, 01/21, 12/27/2012, Additional history exists COVID-19 Vaccine (7 - Pfizer risk season) 2024 12/10/2023, 06/17/2023, 12/04/2021, Additional history exists Adult Wellness Visit 09/26/2024 09/27/2023, 09/01/2022, 11/20/2020 Depression Screening 09/26/2024 09/27/2023, 08/11/19 24 GFR 06/20/2025 06/20/2024, 02/20, 12/17/2023, Additional history exists Albumin/Creatinine Ratio 07/13/2026 07/14/2023 DTap/Tdap Vaccines (3 - Td or Tdap) 12/07/2032 12/07/2022, 12/12/2012, 01/30/2010, Additional history exists Pneumococcal Vaccine: 50+ Years Completed 12/12/2015, 10/25/2014, 12/28/2005 Zoster Vaccines Completed 09/13/2018, 04/22, 06/13/2008 EKG Completed 12/10/2023, 09/20, 08/25/2023, Additional history exists Influenza Vaccine (FLU shot) Completed , 11/24/2022, 01/30/2022, Additional history exists HPV (Gardasil) Vaccine Aged Out No lo nger eligible based on patient's age to complete this topic Hepatitis B Vaccine Aged Out No longe r eligible based on patient's age to complete this topic MENINGOCOCCAL (MENACTRA/MENVEO) Aged Out No longer eligible based on patient's age to complete this topic Meningitis B Vaccine (Bexsero/Trumemba) Aged Out No longer eligible based on patient's age to complete this topic documented as of this encounter Medical Devices Implanted Type Area Health And Safety Trainer Device Identifier Shelf Expiration Date Model / Serial / Lot Alloderm 2x4 Sheet [id number] ( 8 Units ) - [id number] - [id number] Implanted:Qty : 8 on 02/04/2015 by Marques Rodriguez MD at [place] [facility] Tissue - Human N/A: Esophagus [employer] 07/19/2016 [id number] / [id number] Stent Eso Gw [id number] - [id number] Implanted:Qty : 1 on 02/05/2015 by Marques Rodriguez MD at [place] [facility] N/A: Esophagus [employer] 05/19/2017 [id number] / / [id number] documented as of this encounter Additional Health Concerns Infection Onset Date Last Indicated Resolved Time C. difficile Rule-Out 07/12/2024 07/12/20242024 11:00 PM EDT documented as of this encounter Advance Directives Documents on File Type Date Recorded Patient Developing Machine Operator Expl anation Power of Salesperson Sewing Machines 01/22/2005 POWER OF A TTORNEY DURABLE POWER OF DEOILING MACHINE OPERATOR * Full Code (Latest Code Status on File) Date Activated Date Inactivated Comments 04/24/2022 9:35 AM 04/24/2022 5:25 PM This order ref lects the patients wishes and were consensually agreed upon. Question Answer Comments Discussion of Advance Directives occurred with: Patient Does the patient have a Living Will? No Does the patient have Health Care Power of Attor mark? No * Full Code Date Activated Date Inactivated Comments 08/09/2016 2:47 AM 08/10/2016 7:39 PM This order r eflects the patients wishes and were consensually agreed upon. Question Answer Comments Discussion of Advance Directives occurred with: Patient Does the patient have a Living Will? No Does the patient have Health Care Power of Attor mark? No * Full Code Date Activated Date Inactivated Comments 03/05/2015 6:21 PM 03/08/2015 7:08 PM This order reflects the patients wishes and were consensually agreed upon. * Full Code Date Activated Date Inactivated Comments 02/04/2015 2:42 PM 02/12/2015 4:06 PM Question Answer Comments Discussion of Advance Directives occurred with: Not Discussed * Full Code Date Activated Date Inactivated Comments 02/04/2015 8:23 AM 02/04/2015 2:42 PM This order reflects the patients wishes and were consensually agreed upon. Healthcare Agents on File Name Relationship Healthcare Agent Relationship Communication Dong Mcguire Spouse Health Care Sneha r of Salesperson Sewing Machines Care Teams Shake Cutter Relationship Specialty Start Date End Date Rosalinda Peterson CRNP [address] [id number] PCP - General Nurse Practitioner 04/05/24 documented as of this encounter
--- OUTSIDE RECORDS SUMMARY | 2024-08-01 14:16 | External Medical Summary | Summary of Care ---
Author Name Unknown Organization [facility] Address [address] [place] [address] Phone [phone] Care Team Providers Care Outbound Telemarketer Name Role Phone Rosalinda Peterson Primary Care Provider Reason for Visit * Reason Comments Re-Check 3 mo check, fatigue, wondering how long she needs to take nifedipine Encounter Details Date Type Department Care Team (Late st Contact Info) Description 07/14/2024 8:40 AM EDT Office Visit Family Practice [facility] [address] [place] [id number] Rosalinda Peterson CRNP [address] [place] [id number] Risk and functional assessment*; Chronic diastolic congestive heart failure (HCC); HTN, goal below 130/80; Irritable bowel syndrome with constipation; Elevated TSH; Other vitamin B12 deficiency anemia; Anal fissure; Nodule of lower lobe of left lung; NOEL (generalized anxiety disorder); History of tobacco use Allergies Active Allergy Reactions Criticality Noted Date Comments Adhesive Tape 05/27/2021 Other reaction(s): Rash Chlorhexidine Low 12/30/2020 Other reaction(s): rash, itching Escitalopram Oxalate Itching,Other (Please comment) 09/07/2011 Jittery Ibuprofen 05/19/2022 Swelling, redness, hives Pt states she cannot tolerate motrin 600mg abut can take lower doses Latex 03/18/2011 Rash Paroxetine Hcl 10/24/2015 Foggy/visual impairment documented as of this encounter (statuses as of 07/14/2024) Medications TYLENOL ARTHRITIS PAIN 650 MG PO TBCR Take 1 Tablet by mouth daily. Active Cholecalciferol (VITAMIN D) 2000 UNITS Capsule Take 1 Capsule by mouth in the morning. Active loperamide (IMODIUM) 2 MG Capsule Take 1 Capsule by mouth as needed for Diarrhea. Active aspirin enteric coated 81 MG TBECIndications:t akes in the evening Take 1 Tablet by mouth at bedtime. Active Cyanocobalamin (B-12) 500 MCG TABS Take by mouth 2 times a day. Taking daily Active Benefiber Oral Powder Take by mouth daily . Tablespoon full Active Albuterol Sulfate HFA 108 (90 Base) MCG/ACT Inhalation Aerosol SolutionIndicatio ns:Moderate persistent asthma without complication Inhale 2 Puffs by mouth every 4 hours as needed for Wheezing. 54 g 3 021 Active AMBULATORY MISCELLANEOUS MEDICATION / CBD gummy once daily for anxiety Active Polyethylene Glycol 3350 17 GM Oral Packet Take 1 Packet by mouth in the morning. Active Docusate Sodium 50 MG Oral Capsule Take 1 Capsule by mouth as needed for Constipation. Active Nitroglycerin 0.4 MG Sublingual Tablet Sublingual (Nitrostat)Indica tions:ASCVD (arteriosclerotic cardiovascular disease) Place 1 Tablet under the tongue every 5 minutes as needed for Pain, Chest. 75 Tablet 2 4 8:47 AM EST 023 Active Probiotic & Acidophilus Ex St Oral Capsule Take 1 Capsule by mouth every evening. Active Ibuprofen 200 MG Oral Tablet (Motrin) Take 1 Tablet by mouth every 4 hours as needed. Active dilTIAZem HCl ER Coated Beads 120 MG Oral Capsule Extended Release 24 Hour (Cardizem CD)Indications: CVD (arteriosclerotic cardiovascular disease),HTN, goal below 140/90 TAKE ONE CAPSULE BY MOUTH EVERY DAY 90 Capsule 3 5 4:08 PM EDT 024 2024 Active predniSONE 20 MG Oral Tablet (Deltasone)Indica tions:Acute maxillary sinusitis, recurrence not specified Take 1 Tablet by mouth in the morning. Uses as a rescue kit. 5 Tablet 024 Active Estradiol 0.5 MG Oral Tablet (Estrace)Indicati ons:Need for prophylactic hormone replacement therapy (postmenopausal) TAKE ONE TABLET BY MOUTH EVERY DAY ON SUNDAYS, TUESDAYS, THURSDAYS AND SATURDAYS 90 Tablet 2 5 3:00 PM EDT 024 Active busPIRone HCl 5 MG Oral Tablet (Buspar)Indicatio ns:Anxiety TAKE ONE TABLET BY MOUTH TWICE A DAY 180 Tablet 3 5 4:06 PM EDT 024 2024 Active Bismuth Subsalicylate 262 MG/15ML Oral Suspension (Pepto-Bismol) Take 30 mL by mouth every 4 hours as needed. Active Fluocinolone Acetonide Scalp 0.01 % External Oil (Provencal-Smoothe/FS Scalp) Apply to external ears as needed for itching. 118.28 mL 4 2:17 PM EDT 024 Active Clotrimazole-Beta methasone 1-0.05 % External Cream (Lotrisone) Apply topically to affected area 2 times a day. 45 g 4 12:39 PM EST 024 Active Atenolol 50 MG Oral Tablet (Tenormin)Indicat ions:ASCVD (arteriosclerotic cardiovascular disease) TAKE ONE TABLET BY MOUTH TWICE A DAY 180 Tablet 3 5 10:00 AM EST 024 2024 Active metroNIDAZOLE 1 % External Gel (Metrogel)Indicat ions:Rosacea Apply to face daily after washing with soap and water and then use SPF 30 daily 60 g 2 5 3:14 PM EST 025 Active Atorvastatin Calcium 20 MG Oral Tablet (Lipitor) Take 1 Tablet by mouth at bedtime. 90 Tablet 3 5 12:48 PM EDT 025 Active LORazepam 0.5 MG Oral Tablet (Ativan)Indicatio ns:NOEL (generalized anxiety disorder) Take 1 Tablet by mouth daily as needed for Anxiety. 90 Tablet 025 Active Furosemide 20 MG Oral Tablet (Lasix)Indication s:Lower extremity edema Take one-half Tablet by mouth in the morning. 100 Tablet 3 5 10:06 AM EDT 025 Active cycloSPORINE 0.05 % Ophthalmic Emulsion (Restasis) Instill 1 Drop into both eyes in the morning and 1 Drop before bedtime. 60 Each 5 5:47 PM EST 025 2025 Active Estradiol 0.1 MG/GM Vaginal Cream (Estrace) Apply pea sized amount (0.5 gm) vaginally twice a week at bedtime 42.5 g 3 5 2:18 PM EST 025 Active Dicyclomine HCl 10 MG Oral Capsule (Bentyl)Indicatio ns:Irritable bowel syndrome with diarrhea Take 1 Capsule by mouth 2 times a day as needed for abdominal cramping or diarrhea 180 Capsule 5 10:29 AM EST 025 Active NIFEdipine rectal 0.2% RE OINT APPLY 1/2 INCH TO RECTAL AREA 2 TIMES A DAY NEEDED FOR FISSUERS. 025 Active Potassium Chloride ER 10 MEQ Oral Capsule Extended Release Take 1 Capsule by mouth every other day. 025 Active tiZANidine HCl 2 MG Oral Tablet (Zanaflex) Take 1/2 to 1 tablet by mouth daily NEEDED for muscle spasms 30 Tablet 1 Active DULoxetine HCl 30 MG Oral Capsule Delayed Release Particles (Cymbalta) Take 1 Capsule by mouth at bedtime. Do not cut, crush or chew 30 Capsule 5 11:19 AM EDT 025 Active tiZANidine HCl 2 MG Oral Tablet (Zanaflex) Take 1 table by mouth 3 times a day as needed for muscle spasms 30 Tablet 1 024 2024 Discontinued(R efill) Potassium Chloride ER 10 MEQ Oral Capsule Extended Release Take 1 Capsule by mouth in the morning. 100 Capsule 3 5 2:15 PM EST 025 2024 Discontinued documented as of this encounter (statuses as of 07/14/2024) Active Problems Problem Noted Date Diagnosed Date Chronic diastolic congestive heart failure 04/14 Leg mass, right 04/13/2024 Leg cramping 07/12/2023 Leg swelling 08/26/2022 Advanced directives, counseling/discussion 03/10 Overview (07/20/2008): PROJECT: #[id number], [place] OPERATOR: Angelito Chen MD SUMMARY: Patients with CHD are randomized to darapladib (Lp-PLA2 inhibitor) or placebo in addition to standard of care medications to evaluate incidence of major coronary events. CONTACTS: During normal business hours, contact Clincal Research Coordinator at appropriate clinic location, after hours on-call Clinical Research Coordinator via the [facility] hospital drying tunnel operator ([phone]). 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 Generalized osteoarthritis Rosacea documented as of this encounter (statuses as of 07/14/2024) Resolved Problems Problem Noted Date Diagnosed Date Resolved Date Chronic diarrhea 06/29/2024 07/14/2024 Rectal itching 06/29/2024 07/14/2024 Heart failure, diastolic, wi th acute decompensation 04/14/2024 07/11/2024 Depression, unspecified 12/23/2022 12/0 06/2022 Migraine with aura, not intr actable, without status migrainosus 07/07/2022 07/05/2023 Hematuria, gross 03/04/2021 04/13/2024 History of UTI 03/04/2021 04/13/2024 Coronary artery disease invo lving makah coronary artery of makah heart with unstable angina pectoris 07/18/2020 04/06/2023 Gastroesophageal reflux dise ase without esophagitis 06/11/2020 03/31/2022 Pain, dental 12/04/2017 06/24/2018 Visual loss 03/29/2017 10/01/2017 Headache, unspecified headache type 03/29/2017 11/11/2017 Neck discomfort 03/29/2017 10/01/2017 Abdominal pain, right upper quadrant 09/04/2016 12/07/2016 Chest pain, non-cardiac 08/09/2016 04/07/2018 Overview (08/10/2016): Cath [facility] 07/2016 with no changes - old REWEAVER Diagonal Abnormal nuclear stress test 07/27/2016 11/11/2017 Overview (08/10/2016): anterolat ischemia on nuclear 07/2016, totally expected as she has chronic total diagnonal occlusion Moderate persistent asthma w ithout complication 04/30/2016 05/19/2022 Viral URI with cough 03/01/2016 017 Coronary artery disease invo lving makah coronary artery of makah heart with unstable angina pectoris 10/03/2015 06/11/2020 Overview (08/10/2016): Lead Nitrate Processor: Amador Barry PA-C [facility] Hx Ant wall AK at the age of 45 s/p PTCA of the LAD at [facility] S/p Cath 2010, with REWEAVER of the diag 07/2016 [facility]: moderate ischemia in a large portion of the anterior lateral and lateral myocardium.EF 76% 07/2016 Cath [facility] for atyp back pain and abnl nuclear stress: Patent LAD and RCA, known REWEAVER of the diagonal. Anxiety 05/21/2015 06/24/2018 Paraesophageal hernia 02/04/20152019 Cholelithiasis 11/05/2011 11/11/2017 Old myocardial infarct 10/11/200806/24 Overview (10/11/2008): Modified by Acute AK Protocol #5. Follow-up of anterolateral m yocardial [...] 06/09/2002 10/11/2008 Overview (10/11/2008): Modified by Acute AK Protocol #5. CORONARY ATHEROSCLEROSIS VESSEL NOS 02/15/2002 10/03/2015 Dyslipidemia, goal to be determined 02/15/2002 02/13/2009 Overview (02/13/2009): Per Lipid Taxonomy DIVERTICULITIS OF COLON 07/21 PURE HYPERCHOLESTEROLEM 02/19 Overview (02/28/2009): Per Lipid Taxonomy. Acute AK, anterior wall 09/20 Overview (10/11/2008): Modified by Acute AK Protocol #5. 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, including hip 11/11/2017 documented as of this encounter (statuses as of 07/14/2024) Immunizations Name Administration Dates Next Due COVID-19 mRNA, LNP-s, No Pre serve, 2-Dose Series ([employer]) 02/11/2021,06/10/2020,05/15/2020 COVID-19, MRNA-LNP, PF, 30 M CG/0.3 [...] Job Start Date Job End Date retired- [employer] Not on file Not on file Not on file documented as of this encounter Last Filed Vital Signs Vital Sign Reading Time Taken Comments Blood Pressure 136/64 07/14/2024 8:44 AM EDT Pulse 60 07/14/2024 8:44 AM EDT Temperature 36.6 °C (97.8 °F) 07/14/2024 8:44 AM ED T Respiratory Rate - - Oxygen Saturation - - Inhaled Oxygen Concentration - - Weight 69.4 kg (153 lb) 07/14/2024 8:44 AM EDT Height - - Body Mass Index 29.15 02/08/2024 2:57 PM EST documented in this encounter Functional Status * Are you [...] Date Author No 02/04/2015 8:30 PM Kaylene Denton RN documented in this encounter Patient Instructions * Patient Instructions* An Mccartney RN - 07/14/2024 8:44 AM EDT Urinary Incontinence Plan of Care Documentation: (This education is for all patients over 65 regardless of symptoms) Current medications reconciled. Patient encouraged to: Practice kegal exercises Provide education materials Use the restroom every 2 hours throughout the day Limit caffeine, alcohol, spicy foods and acidic foods Keep a bladder diary Limit fluid intake 3-4 hours before bed Lose weight Prevent constipation Take fluid pills at a time when you can get to the bathroom quickly Control sugar better if diabetic Limit fluid intake to 60 oz. per day Wear support stockings (TEDs)if you have edema An Mccartney RN 07/14/2024 Kegel Exercises Kegel exercises don’t require special clothing or equipment. They’re easy to learn and simple to do. And if you do them right, no one can tell you’re doing them, so they can be done almost anywhere. Your doctor, nurse, or physical therapist can answer any questions you have and help you get started. A Weak Pelvic Floor The pelvic floor muscles may weaken due to aging, and vaginal childbirth, injury, surgery, chronic cough, or lack of exercise. If the pelvic floor is weak, your bladder and other pelvic organs may sag out of place. The urethra may also open too easily and allow urine to leak out. Kegel exercises can help you strengthen your pelvic floor muscles so they can better support the pelvic organs and control urine flow. How Kegel Exercises Are Done Try each of the Kegel exercises described below. When you’re doing them, try not to move your leg, buttock, or stomach muscles. While you’re urinating, try to stop the flow of urine. Start and stop it as often as you can. Contract as if you were stopping your urine stream, but do it when you’re not urinating. Tighten your rectum as if trying not to pass gas. Contract your anus, but don’t move your buttocks. Helpful Hints Do your Kegels as often as you can. The more you do them, the faster you’ll feel the results. Pick an activity you do often as a reminder. For instance, do your Kegels every time you sit down. Tighten your pelvic floor before you sneeze, get up from a chair, cough, laugh, or lift. This protects your pelvic floor from injury and can help prevent urine leakage. Try to hold each Kegel for a slow count to five. You probably won’t be able to hold them for thatlong at first, but keep practicing. It will get easier as your pelvic floor gets stronger. Eventually, special weights that you place in your vagina may be recommended to help make your Kegels even more effective. Janina Patient Education Copyright© 2008 - 2010 Janina except where otherwise noted. Here are some helpful tips for your urinary incontinence: (This education is for all patients over 65 regardless of symptoms) Practice Kegel exercises Use the restroom every 2 hours throughout the day Limit caffeine, alcohol, spicy foods, and acidic foods Keep a bladder diary Limit fluid intake 3-4 hours before bed Lose weight Prevent constipation Take fluid pills at a time when can get to the bathroom quickly Control sugar better if diabetic Limit fluid intake to 60 oz. per day Any questions, please feel free to contact our office. documented in this encounter Progress Notes * Rosalinda Peterson CRNP - 07/14/2024 9:02 AM EDT Follow up Family Medicine Visit CC: Chief Complaint Patient presents with Re-Check 3 mo check, fatigue, wondering how long she needs to take nifedipine History of Present Illness: History of Present Illness Ciarra Quinn, a 78-year-old presents for her routine follow up and short term follow up of diarrheaand bowel irregularities. She reports that she had an episode of diarrhea that lasted for an hour and a half the las night. She also mentions that her stools have been small and infrequent this am. She denies any incontinence but reports a sense of urgency when she needs to go. She has been off Dulcolax for two days and has been using Pepto-Bismol to manage her symptoms. In addition to her bowel issues, she reports changes in her vision over the past two weeks, statingthat her glasses do not make things as clear as they used to. She also mentions experiencing leg cramps, which she attributes to varicose veins and venous insufficiency. She has been managing these cramps with tizanidine, taking half to a full pill as needed. She also discusses her anxiety, which she feels is connected to her irritable bowel syndrome. She reports feeling overwhelmed and tired, and has been using lorazepam and CBD to manage her symptoms. She expresses a desire to better control her anxiety and is open to trying a new medication. Reviewed recent lung scan from hospital. It shows 5 mm LLL nodule. She does have 30 pack year history. She has decided not to follow up on a lung nodule found in a previous CT scan, stating that she does not want to undergo treatment if it turns out to be cancerous. Social History Socioeconomic History Marital status: Spouse name: Gokul Number of children: 2 Years of education: Not on file Highest education level: Not on file Occupational History Occupation: retired- [employer] Tobacco Use Smoking status: Former Current packs/day: 0.00 Average packs/day: 0.5 packs/day for 31.0 years (15.5 ttl pk-yrs) Types: Cigarettes Start date: 06/11/1983 Quit date: 06/10/2014 Years since quittin.1 Passive exposure: Past Smokeless tobacco: Never Vaping Use Vaping status: Never Used Substance and Sexual Activity Alcohol use: Yes Comment: bloody vasile once a month or so Drug use: Yes Comment: CBD gummies with THC takes when she feels weepy Sexual activity: Yes Partners: Male control/protection: Surgical Other Topics Concern Service No Blood Transfusions No Caffeine Concern No Occupational Exposure No Hobby Hazards No Sleep Concern No Stress Concern No Weight Concern No Special Diet No Back Care No Exercise No Bike Helmet No Comment: does not apply Seat Belt Yes Self-Exams Yes Social History Narrative Lives with , Dong, for 58 years. Social Needs Financial Resource Strain: Low Risk (08/11/2023) Financial Resource Strain Do you have any trouble paying for your medications, or do you think you might in the future? (Adult - for ages 18 years and over): No Does your family have trouble paying for medicine? (Household - for ages 0-17 years): Not on file Food Insecurity: No Food Insecurity (08/11/2023) Food Insecurity Worried About Running Out of Food in the Last Year: Never true Ran Out of Food in the Last Year: Never true Do you need food for this week? (Adult - for ages 18 years and over): No Transportation Needs: No Transportation Needs (08/11/2023) Transportation Needs Do you have trouble getting a ride to medical visits or work? (Adult - for ages 18 years and over):Never True Does your family have a hard time getting a ride to doctors’ visits? (Household - for ages 0-17 years): Not on file Has lack of transportation kept you from medical appointments, meetings, work, or from getting things needed for daily living? Check all that apply. (Adult - for ages 18 years and over): Not on file Do you (or your family) have trouble finding or paying for a ride (transportation)? (Household - for ages 0-17 years): Not on file Social Connections: Socially Integrated (08/11/2023) Social Connections How often do you feel lonely or isolated from those around you? (Adult - for ages 18 years and over): Never Housing Stability: Low Risk (08/11/2023) Housing Stability Do you currently live in a intermediate or have no steady place to sleep at night? (Adult - for ages 18 years and over): No Do you think you are at risk of becoming homeless? (Adult - for ages 18 years and over): No Does your family worry about paying for your home or becoming homeless? (Household - for ages 0-17 years): Not on file Are you homeless or worried that you might be in the future? (Adult - for ages 18 years and over): Not on file Are you (or your family) homeless or worried that you might be in the future? (Household - for ages0-17 years): Not on file PMH: Past Medical History: Diagnosis Date Actinic keratosis Acute AK, anterior wall (HCC) 2002 Calculus of gallbladder without mention of cholecystitis or obstruction 11/05/2011 Calculus of kidney Cardiac pacemaker in situ 11/12/2017 Clostridioides difficile infection 10/2020 Coronary artery disease involving makah coronary artery of makah heart with unstable angina pectoris (HCC) CORONARY ATHEROSCLEROSIS VESSEL NOS 02/15/2002 Cystocele with prolapse DDD (degenerative disc disease), cervical 12/20/2013 Diverticulitis of colon Diverticulosis of large intestine without hemorrhage 08/02/2019 Dyslipidemia, goal LDL below 160 Gastroesophageal reflux disease with esophagitis 12/21/2011 Generalized osteoarthritis GERD (gastroesophageal reflux disease) 12/21/2011 History of retinal tear LEFT EYE HTN, goal below 140/90 IBS (irritable bowel syndrome) 06/11/2011 Need for prophylactic hormone replacement therapy (postmenopausal) Old AK (myocardial infarction) 11/11/2017 Old myocardial infarct 10/11/2008 Modified by Acute AK Protocol #5. 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 Past Surgical History: Procedure Laterality Date ANGIOPLASTY TIBIOPERON, PERCUT 2001 CLOSURE OF VAGINA 04/24/2022 COLPOCLEISIS performed by Hiro Lyons MD at OR [facility] COLONOSCOPY THRU STOMA, W/BIOPSY 03/02/2011 [facility] COLONOSCOPY W/ BIOPSY (RECTUM) 11/20/2008 f/u with PCP/ path normal COLONOSCOPY, DIAGNOSTIC (RECTUM) 03/09/2016 Tortuous colon, diverticulosis, repeat 5 yrs/COLONOSCOPY FLEXIBLE PROXIMAL DIAGNOSTIC performed by Shahnaz Galicia DO at ENDOSCOPY [facility] COLONOSCOPY, DIAGNOSTIC (RECTUM) 04/20/2018 normal bx, diverticulosis/COLONOSCOPY FLEXIBLE PROXIMAL DIAGNOSTIC performed by Shahnaz Galicia DO at ENDOSCOPY [facility] COLONOSCOPY, GI REFERRAL OP 02/06/2005 repeat in 10 years CORONARY ANGIOGRAPHY W/LEFT HEART CATH 11/11/2010 CORONARY ANGIOGRAPHY W/LEFT HEART CATH performed by HENRY RIDER at CARDIAC LABS [facility] CYSTOSCOPY 12/2002 EGD, FLEXIBLE, DIAGNOSTIC 02/29/2012 UPPER GI ENDOSCOPY DIAGNOSTIC performed by Uziel Barker MD at OR [facility], BIOPSIES WN EGD, FLEXIBLE, DIAGNOSTIC 11/22/2014 eso stricture, lg /[facility] EGD, FLEXIBLE, DIAGNOSTIC N/A 02/04/2015 ESOPHAGOGASTRODUODENOSCOPY (EGD), FLEXIBLE, TRANSORAL, DIAGNOSTIC performed by Marques Rodriguez MDa OR [facility] EGD, FLEXIBLE, DIAGNOSTIC N/A 02/05/2015 ESOPHAGOGASTRODUODENOSCOPY (EGD), FLEXIBLE, TRANSORAL, DIAGNOSTIC performed by José Romero OR [facility] EGD, FLEXIBLE, DIAGNOSTIC 06/11/2015 [place]/[facility] EGD, FLEXIBLE, DIAGNOSTIC 04/20/2018 erosive gastropathy, reflux esophagitis/ESOPHAGOGASTRODUODENOSCOPY (EGD), FLEXIBLE, TRANSORAL, DIAGNOSTIC performed by Shahnaz Galicia DO at ENDOSCOPY [facility] EGD, FLEXIBLE, DIAGNOSTIC 01/09/2022 mild gastric irritation on bx / ESOPHAGOGASTRODUODENOSCOPY (EGD), FLEXIBLE, TRANSORAL, DIAGNOSTIC performed by Shahnaz Galicia DO at ENDOSCOPY [facility] EGD, FLEXIBLE,ENDO STENT PLACEMENT N/A 02/05/2015 ESOPHAGOGASTRODUODENOSCOPY (EGD), FLEXIBLE, TRANSORAL: STENT PLACEMENT performed by Marques Rodriguez MD at OR [facility] ENTERECTOMY, LAP, W/ANASTOMOSIS, SINGLE N/A 02/05/2015 LAPAROSCOPIC RESECTION SMALL INTESTINE WITH ANASTOMOSIS performed by Marques Rodriguez MD at [facility] ESOPHAGOGASTRIC FUNDOPLASTY N/A 02/05/2015 LAPAROSCOPIC ESOPHAGOGASTRIC FUNDOPLASTY MILES performed by Marques Rodriguez MD at [facility] ESOPHAGOSCOPY, FLEXIBLE, DIAGNOSTIC N/A 03/05/2015 ESOPHAGOSCOPY DIAGNOSTIC performed by Marques Rodriguez MD at OR [facility] EXPLORATION OF ABDOMEN N/A 02/05/2015 EXPLORATORY LAPAROTOMY performed by Marques Rodriguez MD at OR [facility] FLEX SIG, GI REFERRAL OP 06/21/1999 LAPAROSCOPY DIAGNOSTIC N/A 02/05/2015 LAPAROSCOPY DIAGNOSTIC performed by Marques Rodriguez MD at [facility] LAPAROSCOPY; CHOLECYSTECTOMY 12/30/[address] Cristopher Chow LASER TRABECULOPLASTY Left Hx RT's OS MAMMOGRAM - BILATERAL 02/17/2002 birad code 2, 6 mo f/u on screening mammo, repeat in 1 year MAMMOGRAM - BILATERAL 02/19/2003 birad code 2 MAMMOGRAM - BILATERAL 03/25/2004 birad code 2 MAMMOGRAM - BILATERAL 03/26/2005 birad code 0, spot compressions ordered MAMMOGRAM - BILATERAL 06/02/2006 birad code 2 MAMMOGRAM - BILATERAL 06/06/2007 birad code 2 PACEMAKER INSERTION PER PACEMAKER INSERTION PER Left PARAESOPHAGEAL HERNIA REPAIR, LAP W/ MESH N/A 02/04/2015 LAPAROSCOPIC PARAESOPHAGEAL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
--- OUTSIDE RECORDS SUMMARY | 2024-08-01 14:16 | External Medical Summary | Summary of Care ---
Author Name Unknown Organization [facility] Address [address] [place] [address] Phone [phone] Care Team Providers Care Certified Driver Examiner Name Role Phone Rosalinda Peterson Charu BENJY Primary Care Provider Encounter Details Date Type Department Care Team (Late st Contact Info) Description 07/22/2024 Medication Management Pito Escamilla [facility] [address] [place] [address] Pharmacist, Pito Escamilla [facility] [address] [place] [address] Referred for management of medication therapy* Allergies Active Allergy Reactions Criticality Noted Date Comments Adhesive Tape 05/27/2021 Other reaction(s): Rash Chlorhexidine Low 12/30/2020 Other reaction(s): rash, itching Escitalopram Oxalate Itching,Other (Please comment) 09/07/2011 Jittery Ibuprofen 05/19/2022 Swelling, redness, hives Pt states she cannot tolerate motrin 600mg abut can take lower doses Latex 03/18/2011 Rash Paroxetine Hcl 10/24/2015 Foggy/visual impairment documented as of this encounter (statuses as of 07/22/2024) Medications TYLENOL ARTHRITIS PAIN 650 MG PO [...] Fluocinolone Acetonide Scalp 0.01 % External Oil ([place]-Smoothe/FS Scalp) Apply to external ears as needed [...] 04/28/2024 5:47 PM EST 5 026 Active Estradiol 0.1 MG/GM Vaginal Cream (Estrace) Apply pea sized amount (0.5 gm) vaginally twice a week at bedtime 42.5 g 3 05/04/2024 2:18 PM EST Active Dicyclomine HCl 10 MG Oral Capsule (Bentyl)Indication s:Irritable bowel syndrome with diarrhea Take 1 Capsule by mouth 2 times a day as needed for abdominal cramping or diarrhea 180 Capsule 05/26/2024 10:29 AM EST Active NIFEdipine rectal 0.2% RE OINT APPLY 1/2 INCH TO RECTAL AREA 2 TIMES A DAY NEEDED FOR FISSUERS. 5 Active Potassium Chloride ER 10 MEQ Oral Capsule Extended Release Take 1 Capsule by mouth every other day. Active tiZANidine HCl 2 MG Oral Tablet (Zanaflex) Take 1/2 to 1 tablet by mouth daily NEEDED for muscle spasms 30 Tablet 1 07/17/2024 12:22 PM EDT 5 Active DULoxetine HCl 30 MG Oral Capsule Delayed Release Particles (Cymbalta) Take 1 Capsule by mouth at bedtime. Do not cut, crush or chew 30 Capsule 07/14/2024 11:19 AM EDT 5 Active documented as of this encounter (statuses as of 07/22/2024) Active Problems Problem Noted Date Diagnosed Date Chronic diastolic congestive heart failure 04/14 Leg mass, right 04/13/2024 Leg cramping 07/12/2023 Leg swelling 08/26/2022 Advanced directives, counseling/discussion 03/10 Overview (07/20/2008): PROJECT: #[id number], OUTPATIENT PHYSICAL THERAPIST: Angelito Chen MD SUMMARY: Patients with CHD are randomized to darapladib (Lp-PLA2 inhibitor) or placebo in addition to standard of care medications to evaluate incidence of major coronary events. CONTACTS: During normal business hours, contact Clincal Research Coordinator at appropriate clinic location, after hours on-call Clinical Research Coordinator via the [facility] hospital gasoline truck crane operator ([phone]). The study sponsor can be reached at: Prolapse of vaginal vault after hysterectomy Rectocele 09/13/2020 History of cigarette smoking 09/13/2020 Overview (09/13/2020): 30 pack year Diverticulosis of large intestine without hemorr lucy 08/02/2019 Cystocele, lateral 06/28/2018 NOEL (generalized anxiety disorder) 05/23/2018 ASCVD (arteriosclerotic cardiovascular disease) 03/09/2018 Cardiac pacemaker in situ 11/12/2017 Sick sinus syndrome 11/11/2017 Old GA (myocardial infarction) 11/11/2017 Peripheral vascular disease 10/01/2017 HTN, goal below 130/80 10/03/2015 Anemia due to vitamin B12 deficiency 08/26/2015 Vitamin D deficiency 08/26/2015 DDD (degenerative disc disease), cervical 2013 Gastroesophageal reflux disease with esophagitis 12/21/2011 IBS (irritable bowel syndrome) 06/11/2011 Dyslipidemia 02/28/2009 Overview (02/28/2009): Per Lipid Taxonomy. 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 07/18/2020 04/06/2023 Gastroesophageal reflux dise ase without esophagitis 06/11/2020 03/31/2022 Pain, dental 12/04/2017 06/24/2018 Visual loss 03/29/2017 10/01/2017 Headache, unspecified headache type 03/29/2017 11/11/2017 Neck discomfort 03/29/2017 10/01/2017 Abdominal pain, right upper quadrant 09/04/2016 12/07/2016 Chest pain, non-cardiac 08/09/2016 04/0 07/2018 Overview (08/10/2016): Cath [facility] 07/2016 with no changes - old TECHNICAL CLERK Diagonal Abnormal nuclear stress test 07/27/2016 11/11/2017 Overview (08/10/2016): anterolat ischemia on nuclear 07/2016, totally expected as she has chronic total diagnonal occlusion Moderate persistent asthma w ithout complication 04/30/2016 05/19/2022 Viral URI with cough 03/01/2016 017 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 Anxiety 05/21/2015 06/24/2018 Paraesophageal hernia 02/04/20152019 Cholelithiasis 11/05/2011 11/11/2017 Old myocardial infarct 10/11/200806/24 Overview (10/11/2008): Modified by Acute GA Protocol #5. Follow-up of anterolateral m yocardial [...] 06/09/2002 10/11/2008 Overview (10/11/2008): Modified by Acute GA Protocol #5. CORONARY ATHEROSCLEROSIS VESSEL NOS 02/15/2002 10/03/2015 Dyslipidemia, goal to be determined 02/15/2002 02/13/2009 Overview (02/13/2009): Per Lipid Taxonomy DIVERTICULITIS OF COLON 07/21 PURE HYPERCHOLESTEROLEM 02/19 Overview (02/28/2009): Per Lipid Taxonomy. Acute GA, anterior wall 09/20 Overview (10/11/2008): Modified by Acute GA Protocol #5. 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, including hip 11/11/2017 documented as of this encounter (statuses as of 07/22/2024) Immunizations Name Administration Dates Next Due COVID-19 mRNA, LNP-s, No Pre serve, 2-Dose Series (Ideedock) 02/11/2021,06/10/2020,05/15/2020 COVID-19, MRNA-LNP, PF, 30 M CG/0.3 mL, 12 YRS AND ABOVE, IM (Hotelscan-Comirnat) 12/10/2023,06/17/2023 Covid-19, Mrna, Lnp-s, Pf, B ivalent, [...] 08/11/2023 Does the household have a re lar source of income? 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 Objective: Review of patient's allergies indicates: Allergen Reactions Adhesive Tape Other reaction(s): Rash Escitalopram Oxalate Itching and Other (Please comment) Jittery Ibuprofen Swelling, redness, hives Pt states she cannot tolerate motrin 600mg abut can take lower doses Latex Rash Paxil [Paroxetine Hcl] Foggy/visual impairment Chlorhexidine Other reaction(s): rash, itching Current Outpatient Medications - WARNING: List may be incomplete due to filtering Medication Sig Dispense Refill DULoxetine HCl 30 MG Oral Capsule Delayed Release Particles (Cymbalta) Take 1 Capsule by mouth at bedtime. Do not cut, crush or chew 30 Capsule 0 NIFEdipine rectal 0.2% RE OINT APPLY 1/2 INCH TO RECTAL AREA 2 TIMES A DAY NEEDED FOR FISSUERS. Potassium Chloride ER 10 MEQ Oral Capsule Extended Release Take 1 Capsule by mouth every other day. tiZANidine HCl 2 MG Oral Tablet (Zanaflex) Take 1/2 to 1 tablet by mouth daily NEEDED for musclespasms 30 Tablet 1 Dicyclomine HCl 10 MG Oral Capsule (Bentyl) [...] and1 Drop before bedtime. 60 Each 11 Atorvastatin Calcium 20 MG Oral Tablet (Lipitor) [...] Fluocinolone Acetonide Scalp 0.01 % External Oil ([place]-Smoothe/FS Scalp) Apply to external ears asneeded for [...] TUESDAYS, THURSDAYS AND SATURDAYS 90 Tablet 2 predniSONE 20 MG Oral Tablet (Deltasone) Take [...] mouth in the morning. AMBULATORY MISCELLANEOUS MEDICATION 03/25 CBD gummy once daily for anxiety Albuterol [...] Capsule by mouth as needed for Diarrhea. Cholecalciferol (VITAMIN D) 2000 UNITS Capsule Take 1 Capsule by mouth in the morning. TYLENOL ARTHRITIS PAIN 650 MG PO TBCR Take 1 Tablet by mouth daily. Immunization History Administered Date(s) Administered COVID-19 mRNA, LNP-s, No Preserve, 2-Dose Series (Ideedock) 05/15/2020, 06/10/2020, 02/11/2021 COVID-19, MRNA-LNP, PF, 30 MCG/0.3 mL, 12 YRS AND ABOVE, IM (PFIZER-Comiratrium health) 06/17/2023, 12/10/2023 Covid-19, Mrna, Lnp-s, Pf, Bivalent, 30 Mcg, IM, 12 yrs and above (Pfizer) 12/04/2021 H1N1 2009 Influenza, IM 05/29/2009 Ketorolac Tromethamin Inj 01/30/2008 Pneumococcal Conjugate Vacc, 13 Valent (Prevnar) 10/25/2014 Pneumococcal Polysaccharide PPV23 (Pneumovax) 12/28/2005, 12/12/2015 RSV Vac., Bivalent, Perfusion F, Pf,0.5 Ml (Abrysvo) 05/03/2023 Season Influenza, Quad, PF, Adjuvanted, 65+ Yrs, IM (FLUAD) 11/28/2019 Seasonal Influenza Vac., MDV, IM, 0.5 mL (Fluzone) 02/07/2003, 01/08/2005, 12/28/2005, 01/10/2007, 01/05/2008, 12/07/2008, 01/22/2010, 12/16/2010, 12/05/2011, 12/12/2012, 12/20/2013 Seasonal Influenza, High Dose, Trivalent, PF, IM (Fluzone HD) 12/10/2023 Seasonal Influenza, PF, 6 M & above, IM , (FluLaval or Fluzone) 01/13/2017, 12/20/2017, 12/12/2020 Seasonal Influenza, Quadrivalent Hd (Fluzone Hd) 01/30/2022, 11/24/2022 Seasonal Influenza, Quadrivalent, No Preserve, IM 12/24/2014, 12/12/2015 Seasonal Influenza, Trivalent, Adjuvanted, 65+ YRS, PF, (Fluad) 12/23/2018 TD - Tetanus/Diptheria (ADULT) 07/20/1998 TD, Preservative Free 01/30/2010 TDAP (age 10 and older)(Boostrix) 12/12/2012, 12/07/2022 Varicella Zoster Vaccine Adult (Zostavax) 06/13/2008 Vitamin B12 Injection 07/29/2015, 08/29/2015 Zoster Vaccine Recombinant (Shingrix) 05/10/2018, 09/13/2018 TMR Interventions TMR High Risk Medication - Estrogen: ESTRADIOL TAB 0.5MG Incomplete Encounter MTPs No medication therapy recommendations to display Complete Encounter MTPs Prolapse of vaginal vault after hysterectomy 1 Current Medication: Estradiol 0.5 MG Oral Tablet (Estrace) Current Medication Sig: TAKE ONE TABLET BY MOUTH EVERY DAY ON SUNDAYS, TUESDAYS, THURSDAYS AND SATURDAYS Rationale: Unsafe medication for the patient - Adverse medication event - Safety Recommendation: Provide Education Status: Declined per Patient Identified Date: 07/22/2024 Completed Date: 07/22/2024 Note: Patient states this is a medication she will never stop taking as it makes her feel "girly." Educated patient on risk of taking oral estradiol, including increased risk for cardiovascular events. Patient notes she already has heart problems and does not believe estradiol will cause additionalharm. Assessment & Plan Indication, effectiveness, safety and convenience of her medications were reviewed today. The patient's medical conditions were assessed, evaluated, and deemed meeting goals of drug therapy, with thefollowing exceptions. Takeaway Information Who was the recipient of the CMR service: beneficiary Language Template for the Patient Takeaway: Bur[place]ian I attest that I have reviewed and updated the patient's conditions, allergies, and medications to the best of my ability. Patient provided medication list gathered by: Shahnaz Gleason, Rough And Trueing Machine Operator Stephanie Villalpando RPh PGY-1 Director Data Processing [facility] 07/22/2024 11:27 AM documented in this encounter Miscellaneous Notes * MTM Personal Medication List - Stephanie Villalpando RPh - 07/22/2024 10:54 AM EDT Medication How I take it Why I use it Prescriber Albuterol Sulfate HFA 108 (90 Base) MCG/ACT Inhalation Aerosol Solution Inhale 2 puffs by mouth every 4 hours as needed for wheezing. Breathing Anders Crawley, DO AMBULATORY MISCELLANEOUS MEDICATION Take a quarter of a CBD gummy once daily as needed for anxiety.Anxiety Self aspirin enteric coated 81 MG TBEC Take 1 tablet by mouth once daily at bedtime. Heart health ElissaRochelle BENJY Peterson Atenolol 50 MG Oral Tablet (Tenormin) Take 1 tablet by mouth twice daily. Blood pressure Amador Uriarte PA-C Atorvastatin Calcium 20 MG Oral Tablet (Lipitor) Take 1 tablet by mouth once daily at bedtime. Cholesterol Rosalinda CharuBENJY Naranjo Benefiber Oral Powder Take 1 tablespoon full by mouth once daily. Bowel health Self Bismuth Subsalicylate 262 MG/15ML Oral Suspension (Pepto-Bismol) Take 30 mL by mouth every 4 hours as needed for diarrhea. Bowel health Self busPIRone HCl 5 MG Oral Tablet (Buspar) Take 1 tablet by mouth twice daily. Anxiety Elisa Goldstein, DO Cholecalciferol (VITAMIN D) 2000 UNITS Capsule Take 1 capsule by mouth once daily in the morning. General health Self Clotrimazole-Betamethasone 1-0.05 % External Cream (Lotrisone) Apply topically to affected area 2 times a day. Skin health Elisa Goldstein, DO Cyanocobalamin (B-12) 500 MCG TABS Take 2 tablets by mouth once daily. General health Self cycloSPORINE 0.05 % Ophthalmic Emulsion (Restasis) Instill 1 drop into both eyes twice daily. Eye health Kenny Hector, DO Dicyclomine HCl 10 MG Oral Capsule (Bentyl) Take 1 capsule by mouth 2 times a day as needed for abdominal cramping or diarrhea. Bowel health BENJY Nickerson dilTIAZem HCl ER Coated Beads 120 MG Oral Capsule Extended Release 24 Hour (Cardizem CD) Take 1 capsule by mouth once daily. Blood pressure BENJY Marina Docusate Sodium 50 MG Oral Capsule Take 1 capsule by mouth once daily as needed for constipation. Bowel health Self DULoxetine HCl 30 MG Oral Capsule Delayed Release Particles (Cymbalta) Take 1 capsule by mouth oncedaily at bedtime. Do not cut, crush or chew capsule. Anxiety BENJY Hernandez Estradiol 0.1 MG/GM Vaginal Cream (Estrace) Apply pea sized amount (0.5 gram) vaginally twice a week at bedtime. Menopause Hiro Lyons MD Estradiol 0.5 MG Oral Tablet (Estrace) Take 1 tablet by mouth once daily on Sundays, Tuesdays, , and Saturdays. Menopause Elisa Goldstein DO Fluocinolone Acetonide Scalp 0.01 % External Oil ([place]-Smoothe/FS Scalp) Apply a pea sized amount to outer portion of ears as needed for itching. Skin health Elisa Goldstein DO Furosemide 20 MG Oral Tablet (Lasix) Take one-half tablet by mouth once daily in the morning. Waterpill BENJY Hernandez Ibuprofen 200 MG Oral Tablet (Motrin) Take 1 tablet by mouth every 4 hours as needed for pain. PainSelf loperamide (IMODIUM) 2 MG Capsule Take 1 capsule by mouth once daily as needed for diarrhea. Bowel health Self LORazepam 0.5 MG Oral Tablet (Ativan) Take 1 tablet by mouth once daily as needed for Anxiety. Anxiety BENJY Hernandez metroNIDAZOLE 1 % External Gel (Metrogel) Apply to face once daily after washing with soap and water. Use with SPF 30 sunscreen daily. Skin health Jasmin Campbell PA-C NIFEdipine rectal 0.2% RE OINT Apply one-half inch to rectal area twice daily as needed for fissures. Bowel health BENJY Hernandez Nitroglycerin 0.4 MG Sublingual Tablet Sublingual (Nitrostat) Place 1 tablet under the tongue every5 minutes as needed for chest pain. Chest pain Anders Crawley, Polyethylene Glycol 3350 17 GM Oral Packet Take 1 packet by mouth once daily in the morning. Bowel health BENJY Hernandez Potassium Chloride ER 10 MEQ Oral Capsule Extended Release Take 1 capsule by mouth every other day.Potassium replacement BENJY Hernandez predniSONE 20 MG Oral Tablet (Deltasone) Take 1 tablet by mouth once daily in the morning. Use as arescue kit. Pain Carlos Mckenzie DO Probiotic & Acidophilus Ex St Oral Capsule Take 1 capsule by mouth once daily in the evening. General health Self tiZANidine HCl 2 MG Oral Tablet (Zanaflex) Take one-half to one full tablet by mouth daily as needed for muscle spasms. Muscle spasms BENJY Hernandez TYLENOL ARTHRITIS PAIN 650 MG PO TBCR Take 1 tablet by mouth once daily as needed for pain. Pain Self * [facility] To-Do-List - Stephanie Villalpando RPh - 07/22/2024 10:49 AM EDT Images from the original note were not included. What we talked about: What I should do: The importance of taking your medication as prescribed Your medicine works best when taken as prescribed. It can be hard to remember to take daily medications. Consider making it a part of your daily routine. Pair taking your medication with something you do every day, like brushing your teeth or eating a meal. Consider setting daily alarms to help remind yourself when it is time to take your medicine. Using a pill box can also help you organize your medicines. Pill boxes allow you to fill each day slot with your daily medicine and help you track when your next dose is due. What we talked about: What I should do: Antibiotics Antibiotics, such as a Z-Tulio, should only be taken when prescribed by your doctor. If you are not feeling well, talk to your primary care provider and they may prescribe an antibiotic if it is appropriate. Complete the full course of antibiotic as prescribed. What we talked about: What I should do: medications Before taking a medication that you have not had refilled in a while, check theexpiration date. If the medication is , call your pharmacy to have it refilled. What we talked about: What I should do: Switching Advil to Tylenol Medications like Advil or Motrin , could lead to increased risk of heartproblems, trouble with your kidneys and increased risk of bleeding when used intermediate designer. A safer option for intermediate designer use, would be switching to Tylenol (or Acetaminophen). You can find this at your local pharmacy. Ask your pharmacist to help you find the right product for you. documented in this encounter Plan of Treatment Upcoming Encounters Date Type Department Care Team (Late st Contact Info) Description 08/08/2024 11:30 AM EDT Office Visit Gastroenterology, [facility] [address] [phone] Aster Dawson CRNP [address] [address] 08/11/2024 9:30 AM EDT Cardiac Studies Cardiac Studies, [facility] [address] [phone] 08/31/2024 9:40 AM EDT Office Visit Family Practice [facility] [address] [address] Rosalinda Peterson CRNP [address] [address] 11/14/2024 2:20 PM EDT Office Visit Family Practice [facility] [address] [place] [address] Rosalinda Peterson CRNP [address] [place] [address] 11/15/2024 1:00 PM EDT Hospital Encounter ENDO [facility], Endoscopy Room [facility] [address] [place] [phone] So Morris MD [address] [place] [address] 11/15/2024 1:00 PM EDT - 11/15/2024 1:30 PM EDT Surgery ENDO [facility], Endoscopy Room [facility] [address] [place] [phone] So Morris MD [address] [place] [address] COLONOSCOPY FLEXIBLE PROXIMAL DIAGNOSTIC 03/08/2025 3:00 PM EST Office Visit Cardiology, [facility] [address] [place] [phone] Valerie Ibrahim CRNP [address] [place] [address] 06/21/2025 10:15 AM EDT Office Visit Ophthalmology, [facility] [address] [address] Kenny Hector DO [address] [address] Nurse [facility] [address] [address] Scheduled Procedures Name Priority Associated Diagnoses Date/Ti me COLONOSCOPY FLEXIBLE PROXIMAL DIAGNOSTIC Incontinence of feces, unspecified fecal incontinence type 11/15/2024 1:00 PM EDT Health Maintenance Due Date Last Done Comments DXA Scan 01/23/2023 01/24/2020, 01/21, 12/27/2012, Additional history exists COVID-19 Vaccine (7 - Pfizer risk 2023- season) 2024 12/10/2023, 06/17/2023, 12/04/2021, Additional history [...] this encounter Medical Devices Implanted Type Area Medical Aides Teacher Device Identifier Shelf Expiration Date Model / Serial / Lot Alloderm 2x4 Sheet [id number] ( 8 Units ) - [id number] - [id number] Implanted:Qty : 8 on 02/04/2015 by Marques Rodriguez MD at OR [facility] Tissue - Human N/A: Esophagus [employer] EMMANUEL 07/19/2016 [id number] / [id number] Stent Eso Gw [id number] - [id number] Implanted:Qty : 1 on 02/05/2015 by Marques Rodriguez MD at OR [facility] N/A: Esophagus [employer] 05/19/2017 [id number] / / [id number] documented as of this encounter Visit Diagnoses Diagnosis Referred for management of medication therapy- Primary Encounter for long-term (current) use of other medications Incontinence of feces, unspecified fecal incontinence type documented in this encounter Advance Directives Documents on File Type Date Recorded Patient Fur Buyer Expl anation Power of Data Processing Consultant 01/22/2005 POWER OF A TTORNEY DURABLE POWER OF AIRCRAFT SHEET METAL MECHANIC * Full Code (Latest Code Status on [...] Mcguire Spouse Health Care Sneha r of Data Processing Consultant Care Teams Certified Driver Examiner Relationship Specialty Start Date End Date Rosalinda Peterson CRNP [address] [address] PCP - General Nurse Practitioner 04/05/24 documented as of this encounter
--- OUTSIDE RECORDS SUMMARY | 2024-08-01 14:16 | External Medical Summary | Summary of Care ---
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
--- OUTSIDE RECORDS SUMMARY | 2024-08-01 14:16 | External Medical Summary | Summary of Care ---
Author Name Unknown Organization [facility] Address [address] [place] [address] Phone [phone] Care Team Providers Care Dining Car Server Name Role Phone Rosalinda Petersonlle BENJY Primary Care Provider Reason for Visit * Reason Onset Date Comments Fax 04/20/2024 Last notes Encounter Details Date Type Department Care Team (Late st Contact Info) Description 04/20/2024 Telephone Ophthalmology, [facility] [address] [address] Kenny Hector DO [address] [place] [address] Fax (Last notes ) Allergies Active Allergy Reactions Criticality Noted Date Comments Adhesive Tape 05/27/2021 Other reaction(s): Rash Chlorhexidine Low 12/30/2020 Other reaction(s): rash, itching Escitalopram Oxalate Itching,Other (Please comment) 09/07/2011 Jittery Ibuprofen 05/19/2022 Swelling, redness, hives Pt states she cannot tolerate motrin 600mg abut can take lower doses Latex 03/18/2011 Rash Paroxetine Hcl 10/24/2015 Foggy/visual impairment documented as of this encounter (statuses as of 07/21/2024) Medications TYLENOL ARTHRITIS PAIN 650 MG PO [...] Fluocinolone Acetonide Scalp 0.01 % External Oil ([place]-Smoothe/FS Scalp) Apply to external ears as needed [...] 3 06/15/2024 10:06 AM EDT 5 Active documented as of this encounter (statuses as of 07/21/2024) Active Problems Problem Noted Date Diagnosed Date Chronic diastolic congestive heart failure 04/14 Leg mass, right 04/13/2024 Leg cramping 07/12/2023 Leg swelling 08/26/2022 Advanced directives, counseling/discussion 03/10 Overview (07/20/2008): PROJECT: #[id number], LABORER AIRPORT MAINTENANCE: Angelito Chen MD SUMMARY: Patients with CHD are randomized to darapladib (Lp-PLA2 inhibitor) or placebo in addition to standard of care medications to evaluate incidence of major coronary events. CONTACTS: During normal business hours, contact Clincal Research Coordinator at appropriate clinic location, after hours on-call Clinical Research Coordinator via the [facility] [place] digital pre press operator ([phone]). The study sponsor can be reached at: Prolapse of vaginal vault after hysterectomy Rectocele 09/13/2020 History of cigarette smoking 09/13/2020 Overview (09/13/2020): 30 pack year Diverticulosis of large intestine without hemorr lcuy 08/02/2019 Cystocele, lateral 06/28/2018 NOEL (generalized anxiety [...] as of this encounter (statuses as of 07/21/2024) Resolved Problems Problem Noted Date Diagnosed Date Resolved Date Chronic diarrhea 06/29/2024 07/14/2024 Rectal itching 06/29/2024 07/14/2024 Heart failure, diastolic, wi th acute decompensation 04/14/2024 07/11/2024 Depression, unspecified 12/23/2022 12/0 06/2022 Migraine with aura, not intr actable, without status migrainosus 07/07/2022 07/05/2023 Hematuria, gross 03/04/2021 04/13/2024 History of UTI 03/04/2021 04/13/2024 Coronary artery disease invo lving [place] coronary artery of [place] heart with unstable angina pectoris 07/18/2020 04/06/2023 Gastroesophageal reflux dise ase without esophagitis 06/11/2020 03/31/2022 Pain, dental 12/04/2017 06/24/2018 Visual loss 03/29/2017 10/01/2017 Headache, unspecified headache type 03/29/2017 11/11/2017 Neck discomfort 03/29/2017 10/01/2017 Abdominal pain, right upper quadrant 09/04/2016 12/07/2016 Chest pain, non-cardiac 08/09/2016 04/0 07/2018 Overview (08/10/2016): [facility] 07/2016 with no changes - old ON AIR HOST Diagonal Abnormal nuclear stress test 07/27/2016 11/11/2017 Overview (08/10/2016): anterolat ischemia on nuclear 07/2016, totally expected as she has chronic total diagnonal occlusion Moderate persistent asthma w ithout complication 04/30/2016 05/19/2022 Viral URI with cough 03/01/2016 017 Coronary artery disease invo lving [place] coronary artery of [place] heart with unstable angina pectoris 10/03/2015 06/11/2020 Overview (08/10/2016): Dump Truck Driver: Amador Barry PA-C [facility] Hx Ant wall [place] at the age of 45 s/p PTCA of the LAD at [place] S/p Cath 2010, with ON AIR HOST of the diag 07/2016 [facility]: moderate ischemia in a large portion of the anterior lateral and lateral myocardium.EF 76% 07/2016 Cath [facility] for atyp back pain and abnl nuclear stress: Patent LAD and RCA, known ON AIR HOST of the diagonal. 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 Provided patient with fax number. Call patient if need be:[phone] documented in this encounter Plan of Treatment Upcoming Encounters Date Type Department Care Team (Late st Contact Info) Description 08/08/2024 11:30 AM EDT Office Visit Gastroenterology, [facility] [address] [place] [phone] Aster Dawson CRNP [address] [place] [address] 08/11/2024 9:30 AM EDT Cardiac Studies Cardiac Studies, [facility] [address] [place] [phone] 08/31/2024 9:40 AM EDT Office Visit [facility] [address] [address] Rosalinda Peterson CRNP [address] [place] [address] 11/14/2024 2:20 PM EDT Office Visit [facility] [address] [place] [address] Rosalinda Peterson CRNP [address] [place] [address] 11/15/2024 1:00 PM EDT Hospital Encounter ENDO [facility], Endoscopy Room [facility] [address] [place] [phone] So Morris MD [address] [place] [address] 11/15/2024 1:00 PM EDT - 11/15/2024 1:30 PM EDT Surgery ENDO [facility], Endoscopy Room [facility] [address] [place] [phone] So Morris MD [address] [place] [address] COLONOSCOPY FLEXIBLE PROXIMAL DIAGNOSTIC 03/08/2025 3:00 PM EST Office Visit Cardiology, [facility] [address] [place] [phone] Valerie Ibrahim CRNP [address] [place] [address] 06/21/2025 10:15 AM EDT Office Visit [facility] [address] [address] Kenny Hector DO [address] [address] Nurse [facility] [address] [address] Scheduled Procedures Name Priority Associated Diagnoses Date/Ti [...] this encounter Medical Devices Implanted Type Area City Carrier Assistant Device Identifier Shelf Expiration Date Model / Serial / Lot Alloderm 2x4 Sheet [id number] ( 8 Units ) - [id number] - [id number] Implanted:Qty : 8 on 02/04/2015 by Marques Rodriguez [place] [facility] [place] - Human N/A: Esophagus [employer] EMMANUEL 07/19/2016 [id number] / [id number] / [id number] Stent Eso Gw [id number] - [id number] Implanted:Qty : 1 on 02/05/2015 by Marques Rodriguez MD [place] [facility] N/A: Esophagus [employer] 05/19/2017 [id number] / / [id number] documented as of this encounter Additional Health Concerns Infection Onset Date Last Indicated Resolved Time C. difficile Rule-Out 07/12/2024 07/12/20242024 11:00 PM EDT documented as of this encounter Advance Directives Documents on File Type Date Recorded Patient Learning Services Coordinator Expl anation Power of Woodworking Machinist 01/22/2005 POWER OF A TTORNEY DURABLE POWER OF MANAGER TREASURY * Full Code (Latest Code Status on [...] Name Relationship Healthcare Agent Relationship Communication Dong Carpiojoyce Spouse Health Care Sneha r of Woodworking Machinist Care Teams Dining Car Server Relationship Specialty Start Date End Date Rosalinda Peterson CRNP [address] [place] [address] PCP - General Nurse Practitioner 04/05/24 documented as of this encounter
--- OUTSIDE RECORDS SUMMARY | 2024-08-01 14:16 | External Medical Summary | Summary of Care ---
Author Name Unknown Organization [facility] Address [address] [place] [address] Phone [phone] Care Team Providers Care Real Estate Paralegal Name Role Phone Rosalinda Peterson Primary Care Provider Reason for Visit * Reason Onset Date Comments Advice 07/12/2024 Encounter Details Date Type Department Care Team (Late st Contact Info) Description 07/12/2024 Telephone Family Practice [facility] [address] [place] [facility] [place] [address] Rosalinda Peterson CRNP [address] [place] [facility] [place] [address] Advice Allergies Active Allergy Reactions Criticality Noted Date [...] 3 06/13/19 21 Active AMBULATORY MISCELLANEOUS MEDICATION 03/25 CBD gummy [...] Fluocinolone Acetonide Scalp 0.01 % External Oil ([place]-Smoothe/FS Scalp) Apply to external ears as needed [...] 180 Capsule 05/26/2024 10:29 AM EST 05/23/19 Active documented as of this encounter (statuses as of 07/12/2024) Active Problems Problem Noted Date Diagnosed Date Chronic diarrhea 06/29/2024 Rectal itching 06/29/2024 Chronic diastolic congestive heart failure 04/14 Leg mass, right 04/13/2024 Leg cramping 07/12/2023 Leg swelling 08/26/2022 Advanced directives, counseling/discussion 03/10 Overview (07/20/2008): PROJECT: #[id number], ASBESTOS COVERER: Angelito Chen MD SUMMARY: Patients with CHD are randomized to darapladib (Lp-PLA2 inhibitor) or placebo in addition to standard of care medications to evaluate incidence of major coronary events. CONTACTS: During normal business hours, contact Clincal Research Coordinator at appropriate clinic location, after hours on-call Clinical Research Coordinator via the [facility] hospital vegetable harvest machine operator ([phone]). The study sponsor can be reached at: Prolapse of vaginal vault after hysterectomy Rectocele 09/13/2020 History of cigarette smoking 09/13/2020 Overview (09/13/2020): 30 pack year Diverticulosis of large intestine without hemorr lucy 08/02/2019 Cystocele, lateral 06/28/2018 NOEL (generalized anxiety disorder) 05/23/2018 ASCVD (arteriosclerotic cardiovascular disease) 03/09/2018 Cardiac pacemaker in situ 11/12/2017 Sick sinus syndrome 11/11/2017 Old DE (myocardial infarction) 11/11/2017 Peripheral vascular disease 10/01/2017 [...] 03/04/2021 04/13/2024 Coronary artery disease invo lving [place] coronary artery of [place] heart with unstable angina pectoris 07/18/2020 04/06/2023 Gastroesophageal reflux dise ase without esophagitis 06/11/2020 03/31/2022 Pain, dental 12/04/2017 06/24/2018 Visual loss 03/29/2017 10/01/2017 Headache, unspecified headache type 03/29/2017 11/11/2017 Neck discomfort 03/29/2017 10/01/2017 Abdominal pain, right upper quadrant 09/04/2016 12/07/2016 Chest pain, non-cardiac 08/09/2016 04/0 07/2018 Overview (08/10/2016): Cath [facility] 07/2016 with no changes - old HYDRAULIC MECHANIC Diagonal Abnormal nuclear stress test 07/27/2016 11/11/2017 Overview (08/10/2016): anterolat ischemia on nuclear 07/2016, totally expected as she has chronic total diagnonal occlusion Moderate persistent asthma w ithout complication 04/30/2016 05/19/2022 Viral URI with cough 03/01/2016 017 Coronary artery disease invo lving [place] coronary artery of [place] heart with unstable angina pectoris 10/03/2015 06/11/2020 Overview (08/10/2016): Information Security Architect: Amador Barry PA-C [facility] Hx Ant wall [place] at the age of 45 s/p PTCA of the LAD at [place] S/p Cath 2010, with HYDRAULIC MECHANIC of the diag 07/2016 [facility] [place]: moderate ischemia in a large portion of the anterior lateral and lateral myocardium.EF 76% 07/2016 [facility] for atyp back pain and abnl nuclear stress: Patent LAD and RCA, known HYDRAULIC MECHANIC of the diagonal. Anxiety 05/21/2015 06/24/2018 Paraesophageal hernia 02/04/20152019 Cholelithiasis 11/05/2011 11/11/2017 Old myocardial infarct 10/11/200806/24 Overview (10/11/2008): Modified by Acute DE Protocol #5. Follow-up of anterolateral m yocardial [...] 06/09/2002 10/11/2008 Overview (10/11/2008): Modified by Acute DE Protocol #5. CORONARY ATHEROSCLEROSIS VESSEL NOS 02/15/2002 10/03/2015 Dyslipidemia, goal to be determined 02/15/2002 02/13/2009 Overview (02/13/2009): Per Lipid Taxonomy DIVERTICULITIS OF COLON 07/21 PURE HYPERCHOLESTEROLEM 02/19 Overview (02/28/2009): Per Lipid Taxonomy. Acute DE, anterior wall 09/20 Overview (10/11/2008): Modified by Acute DE Protocol #5. 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, including hip 11/11/2017 documented as of this encounter (statuses as of 07/12/2024) Immunizations Name Administration Dates Next Due COVID-19 mRNA, LNP-s, No Pre serve, 2-Dose Series ([employer]) 02/11/2021,06/10/2020,05/15/2020 COVID-19, MRNA-LNP, PF, 30 M CG/0.3 mL, 12 YRS AND ABOVE, IM [facility] 12/10/2023,06/17/2023 Covid-19, Mrna, Lnp-s, Pf, B ivalent, 30 Mcg, IM, 12 yrs and above ([employer]) 12/04/2021 H1N1 2009 Influenza, IM 05/29/2009 Pneumococcal [...] No 08/11/2023 Does the household have a [facility] source of income? 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 Answer Date of Assessment Author No 02/04/2015 8:30 PM EST Kaylene Walsh RN * Are you blind or do [...] encounter Miscellaneous Notes * Telephone Encounter - Rosalinda Peterson CRNP - 07/12/2024 2:33 PM EDT Spoke to patient Ok to continue activity as tolerated. SARITHA Galicia, BENJY [facility] / * Telephone Encounter - Lisa Beaver OSA - 07/12/2024 11:39 AM EDT Patient stopped by to drop off specimen at lab and wanted to know: If patient has c-diff, which patient believes she has, should she rest or is she able to be active? Please contact patient at number on file. She states it is her home number and to please leave a message if she is unavailable. Thank you! documented in this encounter Plan of Treatment Upcoming Encounters Date Type Department Care Team (Late st Contact Info) Description 07/14/2024 8:40 AM EDT Office Visit Family Practice [facility] [address] [place] [address] Rosalinda Peterson CRNP [address] [place] [address] 08/03/2024 9:25 AM EDT Office Visit Urogynecology [facility] [address] [place] [address] Hiro Lyons MD [address] [place] [address] Nurse Rahel Ramesh [facility] [address] [place] [address] 08/08/2024 11:30 AM EDT Office Visit Gastroenterology, [facility] [address] [place] [address] Aster Dawson CRNP [address] [place] [address] 08/11/2024 9:30 AM EDT Cardiac Studies Cardiac Studies, [facility] [address] [place] [address] 11/15/2024 1:00 PM EDT Hospital Encounter ENDO [facility], Endoscopy Room [facility] [address] [place] [phone] So Morris MD [address] [place] [address] 11/15/2024 1:00 PM EDT - 11/15/2024 1:30 PM EDT Surgery ENDO [facility], Endoscopy Room [facility] [address] [place] [address] So Morris MD [address] [place] [address] COLONOSCOPY FLEXIBLE PROXIMAL DIAGNOSTIC 03/08/2025 3:00 PM EST Office Visit Cardiology, [facility] [address] [place] [phone] Valerie Ibrahim CRNP [address] [place] [address] 06/21/2025 10:15 AM EDT Office Visit Ophthalmology, [facility] [place] [address] Kenny Hector DO [facility] [place] [address] Nurse [facility] Ophthalmology [facility] [place] [address] Scheduled Procedures Name Priority Associated Diagnoses Date/Ti [...] this encounter Medical Devices Implanted Type Area Driver Retraining Instructor Device Identifier Shelf Expiration Date Model / Serial / Lot Alloderm 2x4 Sheet [id number] ( 8 Units ) - [id number] - [id number] Implanted:Qty : 8 on 02/04/2015 by Marques Rodriguez MD at OR [facility] Tissue - Human N/A: Esophagus LIFE CELL EMMANUEL 07/19/2016 [id number] / [id number] / [id number] Stent Eso Gw [id number] - [id number] Implanted:Qty : 1 on 02/05/2015 by Marques Rodriguez MD at OR [facility] N/A: Esophagus [employer] 05/19/2017 [id number] / / [id number] documented as of this encounter Additional Health Concerns Infection Onset Date Last Indicated Resolved Time C. difficile Rule-Out 07/12/2024 07/12/2024 documented as of this encounter Advance Directives Documents on File Type Date Recorded Patient Player Development Manager Expl anation Power of Cutter And Presser 01/22/2005 POWER OF A TTORNEY DURABLE POWER OF ENGINEERING AND OPERATIONS DIRECTOR * Full Code (Latest Code Status [...] Shayla Spouse Health Care Sneha r of Cutter And Presser Care Teams Real Estate Paralegal Relationship Specialty Start Date End Date Rosalinda Peterson CRNP [address] [address] PCP - General Nurse Practitioner 04/05/24 documented as of this encounter
--- OUTSIDE RECORDS SUMMARY | 2024-08-01 14:16 | External Medical Summary ---
Author Name Unknown Address Unknown Organization K01:LABORATORY [facility] - [address] [place] [address] Laboratory Report Ordering Provider Test Date Status LOIS MOSQUEDA 07/12/2024 11:38:32 Final Observation Date Value Abnormality Reference (Units) Status Source 07/12/2024 11:38:32 Semi-liquid Final Clostridioides difficile toxin and BI-[id number] strain DNA panel - Stool by SERA with probe detection 07/12/2024 11:38:32 Negative. No C. difficile toxin B gene DNA detected by PCR (Amplified Probe). Negative Final Performing Location LABORATORY [facility] - [address] [place] [address]
--- OUTSIDE RECORDS SUMMARY | 2024-08-01 14:16 | External Medical Summary | Summary of Care ---
Author Name Unknown Organization [facility] Address [address] [place] [address] Phone [phone] Care Team Providers Care Marine Electrician Name Role Phone Rosalinda Petersonlle BENJY Primary Care Provider Reason for Visit * Reason Comments Outpatient Testing Encounter Details Date Type Department Care Team (Late st Contact Info) Description 07/12/2024 11:40 AM EDT Laboratory Laboratory [address] [place] [id number] [place] [id number] Diarrhea, unspecified type Allergies Active Allergy Reactions [...] Fluocinolone Acetonide Scalp 0.01 % External Oil (Okarche-Smoothe/FS Scalp) Apply to external ears as needed [...] Advanced directives, counseling/discussion 03/10 Overview (07/20/2008): PROJECT: #[id number], CUSTOMER MARKETING ASSISTANT: Angelito Chen MD SUMMARY: Patients with CHD are randomized to darapladib (Lp-PLA2 inhibitor) or placebo in addition to standard of care medications to evaluate incidence of major coronary events. CONTACTS: During normal business hours, contact Clincal Research Coordinator at appropriate clinic location, after hours on-call Clinical Research Coordinator via the [facility] non licensed nuclear plant operator ([phone]). The study sponsor can be reached at: Prolapse of vaginal vault after hysterectomy Rectocele 09/13/2020 History of cigarette smoking 09/13/2020 Overview (09/13/2020): 30 pack year Diverticulosis of large intestine without hemorr lucy 08/02/2019 Cystocele, lateral 06/28/2018 NOEL (generalized anxiety disorder) 05/23/2018 ASCVD (arteriosclerotic cardiovascular disease) 03/09/2018 Cardiac pacemaker in situ 11/12/2017 Sick sinus syndrome 11/11/2017 Old CO (myocardial infarction) 11/11/2017 Peripheral vascular disease 10/01/2017 [...] acute decompensation 04/14/2024 07/11/2024 Depression, unspecified 12/23/2022 120 06/2022 Migraine with aura, not intr actable, without status migrainosus 07/07/2022 07/05/2023 Hematuria, gross 03/04/2021 04/13/2024 History of UTI 03/04/2021 04/13/2024 Coronary artery disease invo lving [place] coronary artery of [place] heart with unstable angina pectoris 07/18/2020 04/06/2023 Gastroesophageal reflux dise ase without esophagitis 06/11/2020 03/31/2022 Pain, dental 12/04/2017 06/24/2018 Visual loss 03/29/2017 10/01/2017 Headache, unspecified headache type 03/29/2017 11/11/2017 Neck discomfort 03/29/2017 10/01/2017 Abdominal pain, right upper quadrant 09/04/2016 12/07/2016 Chest pain, non-cardiac 08/09/2016 040 07/2018 Overview (08/10/2016): [facility] 07/2016 with no changes - old SILK OPENER Diagonal Abnormal nuclear stress test 07/27/2016 11/11/2017 Overview (08/10/2016): anterolat ischemia on nuclear 07/2016, totally expected as she has chronic total diagnonal occlusion Moderate persistent asthma w ithout complication 04/30/2016 05/19/2022 Viral URI with cough 03/01/2016 017 Coronary artery disease invo lving [place] coronary artery of [place] heart with unstable angina pectoris 10/03/2015 06/11/2020 Overview (08/10/2016): 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 Anxiety 05/21/2015 06/24/2018 Paraesophageal hernia 02/04/20152019 Cholelithiasis 11/05/2011 11/11/2017 Old myocardial infarct 10/11/200806/24 Overview (10/11/2008): Modified by Acute CO Protocol #5. Follow-up of anterolateral m yocardial [...] 06/09/2002 10/11/2008 Overview (10/11/2008): Modified by Acute CO Protocol #5. CORONARY ATHEROSCLEROSIS VESSEL NOS 02/15/2002 10/03/2015 Dyslipidemia, goal to be determined 02/15/2002 02/13/2009 Overview (02/13/2009): Per Lipid Taxonomy DIVERTICULITIS OF COLON 07/21 PURE HYPERCHOLESTEROLEM 02/19 Overview (02/28/2009): Per Lipid Taxonomy. Acute CO, anterior wall 09/20 Overview (10/11/2008): Modified by Acute CO Protocol #5. 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, including hip 11/11/2017 documented as of this encounter (statuses as of 07/12/2024) Immunizations Name Administration Dates Next Due COVID-19 mRNA, LNP-s, No Pre serve, 2-Dose Series (Nveloped) 02/11/2021,06/10/2020,05/15/2020 COVID-19, MRNA-LNP, PF, 30 M CG/0.3 mL, 12 YRS AND ABOVE, IM ([employer]-ComirnatGtxh) 12/10/2023,06/17/2023 Covid-19, Mrna, Lnp-s, Pf, B ivalent, 30 Mcg, IM, 12 yrs and above (Nveloped) 12/04/2021 H1N1 2009 Influenza, IM 05/29/2009 Pneumococcal [...] No 08/11/2023 Does the household have a [facility] source [facility] income? 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 Not on file Not on file Not [...] Kaylene Denton RN documented in this encounter Plan of Treatment Upcoming Encounters Date Type Department Care Team (Late st Contact Info) Description 07/14/2024 8:40 AM EDT Office Visit Family Practice [facility] [address] [place] [address] Rosalinda Peterson CRNP [address] [place] [address] 08/03/2024 9:25 AM EDT Office Visit Urogynecology [facility] [address] [place] [address] Hiro Lyons MD [address] [place] [address] Nurse Rahel Ramesh Bandar [address] [place] [address] 08/08/2024 11:30 AM EDT Office Visit Gastroenterology, [facility] [address] [place], [place] [address] Aster Dawson CRNP [address] [place] [address] 08/11/2024 9:30 AM EDT Cardiac Studies Cardiac Studies, [facility] [address] [place] [phone] 11/15/2024 1:00 PM EDT Hospital Encounter ENDO [facility], Endoscopy Room [facility] [address] [place] [phone] So Morris MD [address] [place] [address] 11/15/2024 1:00 PM EDT - 11/15/2024 1:30 PM EDT Surgery ENDO [facility], Endoscopy Room [facility] [address] [place] [address] So Morris MD [address] [place], [place] [address] COLONOSCOPY FLEXIBLE PROXIMAL DIAGNOSTIC 03/08/2025 3:00 PM EST Office Visit Cardiology, [facility] [address] [place] [address] Valerie Ibrahim CRNP [address] [place] [address] 06/21/2025 10:15 AM EDT Office Visit Ophthalmology, [facility] [address] [place] [address] Kenny Hector DO [address] [place] [address] Nurse Liam Ophthalmology [address] [place] [address] Pending Results Name Type Priority Associated Diagnoses Date /Time CLOSTRIDIUM DIFFICILE, PCR Lab Routine Diarrhea, unspecified type 07/12/2024 11:38 AM EDT Scheduled Procedures Name Priority Associated Diagnoses Date/Ti [...] this encounter Medical Devices Implanted Type Area Roading Engineer Device Identifier Shelf Expiration Date Model / Serial / Lot Alloderm 2x4 Sheet [id number] ( 8 Units ) - [id number] - [id number] Implanted:Qty : 8 on 02/04/2015 by Marques Rodriguez [place] [facility] [place] - Human N/A: Esophagus LIFE CELL EMMANUEL 07/19/2016 [id number] / [id number] Stent Eso Gw [id number] - [id number] Implanted:Qty : 1 on 02/05/2015 by Marques Rodriguez MD [place] [facility] N/A: Esophagus [employer] 05/19/2017 [id number] / / [id number] documented as of this encounter Visit Diagnoses Diagnosis Diarrhea, unspecified type Incontinence of feces, unspecified fecal incontinence type documented in this encounter Additional Health Concerns Infection Onset Date Last Indicated Resolved Time C. difficile Rule-Out 07/12/2024 07/12/2024 documented as of this encounter Advance Directives Documents on File Type Date Recorded Patient Any Commodity Buyer Expl anation Power of Track Welder 01/22/2005 POWER OF A TTORNEY DURABLE POWER OF GALLERY OR MUSEUM GUIDE * Full Code (Latest Code Status on [...] 02/04/2015 8:23 AM 02/04/2015 2:42 PM This orde r reflects the patients wishes and were consensually agreed upon. Healthcare Agents on File Name Relationship Healthcare Agent Relationship Communication Dong Mcguire Spouse Health Care Sneha r of Track Welder Care Teams Marine Electrician Relationship Specialty Start Date End Date Rosalinda Peterson CRNP [address] [place] [address] PCP - General Nurse Practitioner 04/05/24 documented as of this encounter
--- OUTSIDE RECORDS SUMMARY | 2024-08-01 14:17 | External Medical Summary | Summary of Care ---
Author Name Unknown Organization [facility] Address [address] [place] [address] Phone [phone] Care Team Providers Care Conveyor Console Operator Name Role Phone Rosalinda Peterson Charu BENJY Primary Care Provider Reason for Visit * Reason Onset Date Comments Other 06/30/2024 Encounter Details Date Type Department Care Team (Late st Contact Info) Description 06/30/2024 Telephone Gastroenterology, [facility] [address] [place] [phone] Aster Dawson CRNP [address] [place] [address] Other (//) Allergies Active Allergy Reactions Criticality Noted Date Comments Adhesive Tape 05/27/2021 Other reaction(s): Rash Chlorhexidine Low 12/30/2020 Other reaction(s): rash, itching Escitalopram Oxalate Itching,Other (Please comment) 09/07/2011 Jittery Ibuprofen 05/19/2022 Swelling, redness, hives Latex 03/18/2011 Rash Paroxetine Hcl 10/24/2015 Foggy/visual impairment documented as of this encounter (statuses as of 06/30/2024) Medications TYLENOL ARTHRITIS PAIN 650 MG PO [...] g 3 021 Active AMBULATORY MISCELLANEOUS MEDICATION 03/25 CBD gummy [...] 2 4 8:47 AM EST 023 Active Additional Information Patient not taking.Reported on [...] a rescue kit. 5 Tablet 024 Active Additional Information Patient not taking.Reported on 06/20/2024 tiZANidine HCl 2 MG Oral Tablet (Zanaflex) Take 1 table by mouth 3 times a day as needed for muscle spasms 30 Tablet 1 024 Active Additional Information Patient not taking.Reported on 06/20/2024 Estradiol 0.5 MG Oral Tablet (Estrace)Indicati ons:Need [...] Fluocinolone Acetonide Scalp 0.01 % External Oil (Sparkill-Smoothe/FS Scalp) Apply to external ears as needed [...] 2 5 3:14 PM EST 025 Active Additional Information Patient not taking.Reported on [...] 3 5 10:06 AM EDT 025 Active Potassium Chloride ER 10 MEQ Oral Capsule Extended Release Take 1 Capsule by mouth in the morning. 100 Capsule 3 5 2:15 PM EST 025 Active cycloSPORINE 0.05 % Ophthalmic Emulsion (Restasis) Instill 1 Drop into both eyes in the morning and 1 Drop before bedtime. 60 Each 11 5 5:47 PM EST 025 2025 Active [...] Capsule 5 10:29 AM EST 025 Active Nitroglycerin 0.4 % Rectal Ointment Administer 1 Application into the rectum every evening for 14 days. 30 g 025 2024 Discontinued documented as of this encounter (statuses as of 06/30/2024) Active Problems Problem Noted Date Diagnosed Date Chronic diarrhea 06/29/2024 Rectal itching 06/29/2024 Chronic diastolic congestive heart failure 04/14 Heart failure, diastolic, with acute decompensat ion 04/14/2024 Leg mass, right 04/13/2024 Leg cramping 07/12/2023 Leg swelling 08/26/2022 Advanced directives, counseling/discussion 03/10 Overview (07/20/2008): PROJECT: #[id number], MILK ROUTE DELIVERER: Angelito Chen MD SUMMARY: Patients with CHD are randomized to darapladib (Lp-PLA2 inhibitor) or placebo in addition to standard of care medications to evaluate incidence of major coronary events. CONTACTS: During normal business hours, contact Clincal Research Coordinator at appropriate clinic location, after hours on-call Clinical Research Coordinator via the [facility] hospital machine operator cane cutter ([phone]). The study sponsor can be reached at: Prolapse of vaginal vault after hysterectomy Rectocele 09/13/2020 History of cigarette smoking 09/13/2020 Overview (09/13/2020): 30 pack year Diverticulosis of large intestine without hemorr lucy 08/02/2019 Cystocele, lateral 06/28/2018 NOEL (generalized anxiety disorder) 05/23/2018 ASCVD (arteriosclerotic cardiovascular disease) 03/09/2018 Cardiac pacemaker in situ 11/12/2017 Sick sinus syndrome 11/11/2017 Old NE (myocardial infarction) 11/11/2017 Peripheral vascular disease 10/01/2017 HTN, goal below 130/80 10/03/2015 Anemia due to vitamin B12 deficiency 08/26/2015 Vitamin D deficiency 08/26/2015 DDD (degenerative disc disease), cervical 2013 Gastroesophageal reflux disease with esophagitis 12/21/2011 IBS (irritable bowel syndrome) 06/11/2011 Dyslipidemia 02/28/2009 Overview (02/28/2009): Per Lipid Taxonomy. Generalized osteoarthritis Rosacea documented as of this encounter (statuses as of 06/30/2024) Resolved Problems Problem Noted Date Diagnosed Date Resolved Date Depression, unspecified 12/23/2022 12/0 06/2022 Migraine with aura, not intr actable, without status migrainosus 07/07/2022 07/05/2023 Hematuria, gross 03/04/2021 04/13/2024 History of UTI 03/04/2021 04/13/2024 Coronary artery disease invo lving [place] coronary artery of [place] heart with unstable angina pectoris 07/18/2020 04/06/2023 Gastroesophageal reflux dise ase without esophagitis 06/11/2020 03/31/2022 Pain, dental 12/04/2017 06/24/2018 Visual loss 03/29/2017 10/01/2017 Headache, unspecified headache type 03/29/2017 11/11/2017 Neck discomfort 03/29/2017 10/01/2017 Abdominal pain, right upper quadrant 09/04/2016 12/07/2016 Chest pain, non-cardiac 08/09/2016 04/0 07/2018 Overview (08/10/2016): Cath [facility] 07/2016 with no changes - old SPINNER IRON Diagonal Abnormal nuclear stress test 07/27/2016 11/11/2017 Overview (08/10/2016): anterolat ischemia on nuclear 07/2016, totally expected as she has chronic total diagnonal occlusion Moderate persistent asthma w ithout complication 04/30/2016 05/19/2022 Viral URI with cough 03/01/2016 017 Coronary artery disease invo lving [place] coronary artery of [place] heart with unstable angina pectoris 10/03/2015 06/11/2020 Overview (08/10/2016): Police Justice: Amador Barry [facility] Hx Ant wall NE at the age of 45 s/p PTCA of the LAD at [place] S/p Cath 2010, with SPINNER IRON of the diag 07/2016 [facility]: moderate ischemia in a large portion of the anterior lateral and lateral myocardium.EF 76% 07/2016 Cath [facility] for atyp back pain and abnl nuclear stress: Patent LAD and RCA, known SPINNER IRON of the diagonal. Anxiety 05/21/2015 06/24/2018 Paraesophageal hernia 02/04/20152019 Cholelithiasis 11/05/2011 11/11/2017 Old myocardial infarct 10/11/200806/24 Overview (10/11/2008): Modified by Acute NE Protocol #5. Follow-up of anterolateral m yocardial [...] 06/09/2002 10/11/2008 Overview (10/11/2008): Modified by Acute NE Protocol #5. CORONARY ATHEROSCLEROSIS VESSEL NOS 02/15/2002 10/03/2015 Dyslipidemia, goal to be determined 02/15/2002 02/13/2009 Overview (02/13/2009): Per Lipid Taxonomy DIVERTICULITIS OF COLON 07/21 PURE HYPERCHOLESTEROLEM 02/19 Overview (02/28/2009): Per Lipid Taxonomy. Acute NE, anterior wall 09/20 Overview (10/11/2008): Modified by Acute NE Protocol #5. 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, including hip 11/11/2017 documented as of this encounter (statuses as of 06/30/2024) Immunizations Name Administration Dates Next Due COVID-19 mRNA, LNP-s, No Pre serve, 2-Dose Series ([employer]) 02/11/2021,06/10/2020,05/15/2020 COVID-19, MRNA-LNP, PF, 30 M CG/0.3 mL, 12 YRS AND ABOVE, IM ([employer]) 12/10/2023,06/17/2023 Covid-19, Mrna, Lnp-s, Pf, B ivalent, 30 Mcg, IM, 12 yrs and above (MetGen) 12/04/2021 H1N1 2009 Influenza, IM 05/29/2009 Pneumococcal Conjugate Vacc, 13 Valent (Prevnar) 10/25/2014 Pneumococcal Polysaccharide PPV23 (Pneumovax) 12/12/2015,12/28/2005 RSV Vac., Bivalent, Perfusio n F, Pf,0.5 Ml (Abrysvo) 05/03/2023 Season Influenza, Quad, PF, Adjuvanted, 65+ Yrs, IM (FLUAD) 11/28/2019 Seasonal Influenza Vac., MDV , IM, 0.5 mL (Fluzone) 12/20/2013,12/12/2012,12/05/2011,12/16,01/22/2010,12/07/2008,01/05/2008 ,01/10/2007,12/28/2005,01/08/2005,01/20 Seasonal Influenza, High Dos e, Trivalent, PF, IM (Fluzone HD) 12/10/2023 Seasonal Influenza, PF, 6 M & above, IM , (FluLaval or Fluzone) 12/12/2020,12/20/2017,01/13/2017 Seasonal Influenza, Quadriva lent Hd (Fluzone Hd) 11/24/2022,01/30/2022 Seasonal Influenza, Quadriva lent, No Preserve, IM 12/12/2015,12/24/2014 Seasonal Influenza, Trivalen t, Adjuvanted, 65+ YRS, PF, (Fluad) 12/23/2018 TD [...] 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 Aster was able to change her medication to a more affordable option. Her Colonoscopy is scheduled for October at this time and is on the move up list to have done after her ECHO in July. JOON Sebastian 06/30/2024 9:46 AM documented in this encounter Plan of Treatment Upcoming Encounters Date Type Department Care Team (Late st Contact Info) Description 07/14/2024 8:40 AM EDT Office Visit Family Practice [facility] [address] [place] [address] Rosalinda Peterson CRNP [address] [place] [address] 08/03/2024 9:25 AM EDT Office Visit Urogynecology Lindsay Ramesh [address] [place] [address] Hiro Lyons MD [address] [place] [address] Nurse Rahel Ramesh [address] [place] [address] 08/08/2024 11:30 AM EDT Office Visit Gastroenterology, [facility] [address] [place] [phone] Aster Dawson CRNP [address] [place] [address] 08/11/2024 9:30 AM EDT Cardiac Studies Cardiac Studies, [facility] [address] [place] [phone] 11/15/2024 1:00 PM EDT Hospital Encounter ENDO OSSC, Endoscopy Room [facility] [address] [place] [address] So Morris MD [address] [place] [address] 11/15/2024 1:00 PM EDT - 11/15/2024 1:30 PM EDT Surgery ENDO OSS, Endoscopy Room [facility] [address] [place] [phone] So Morris MD [address] [place] [address] COLONOSCOPY FLEXIBLE PROXIMAL DIAGNOSTIC 03/08/2025 3:00 PM EST Office Visit Cardiology, [facility] [address] [place] [address] Valerie Ibrahim CRNP [address] [place] [address] 06/21/2025 10:15 AM EDT Office Visit OphthalmologyLiam [address] [place] [address] Kenny Hector DO [address] [place] [address] Nurse Liam Ophthalmology [address] [place] [address] Scheduled Procedures Name Priority Associated Diagnoses Date/Ti [...] this encounter Medical Devices Implanted Type Area Salesperson Corsets Device Identifier Shelf Expiration Date Model / Serial / Lot Alloderm 2x4 Sheet [id number] ( 8 Units ) - [id number] - [id number] Implanted:Qty : 8 on 02/04/2015 by Marques Rodriguez MD at [place] [facility] Tissue - Human N/A: Esophagus LIFE CELL EMMANULE 07/19/2016 [id number] / [id number] / [id number] Stent Eso Gw [id number] - [id number] Implanted:Qty : 1 on 02/05/2015 by Marques Rodriguez MD at [place] [facility] N/A: Esophagus [employer] 05/19/2017 [id number] / / [id number] documented as of this encounter Advance Directives Documents on File Type Date Recorded Patient Basket Operator Expl anation Power of Fibre Composite Technician 01/22/2005 POWER OF A TTORNEY DURABLE POWER OF CHEMICAL ECONOMIST * Full Code (Latest Code Status on [...] Name Relationship Healthcare Agent Relationship Communication Dong Saavedrabailey Spouse Health Care Sneha r of Fibre Composite Technician Care Teams Conveyor Console Operator Relationship Specialty Start Date End Date Rosalinda Peterson CRNP [address] [place] [address] PCP - General Nurse Practitioner 04/05/24 documented as of this encounter
--- OUTSIDE RECORDS SUMMARY | 2024-08-01 14:17 | External Medical Summary | Summary of Care ---
Author Name Unknown Organization [facility] Address [address] [place] [address] Phone [phone] Care Team Providers Care Equipment Service Technician Name Role Phone Rosalinda Peterson Primary Care Provider Reason for Visit * Reason Onset Date Comments Med Request 07/10/2024 Encounter Details Date Type Department Care Team (Late st Contact Info) Description 07/10/2024 Telephone Family Practice [facility] [address] [place] [address] Rosalinda Peterson CRNP [address] [place] [address] Med Request Allergies Active Allergy Reactions Criticality Noted Date Comments Adhesive Tape 05/27/2021 Other reaction(s): Rash Chlorhexidine Low 12/30/2020 Other reaction(s): rash, itching Escitalopram Oxalate Itching,Other (Please comment) 09/07/2011 Jittery Ibuprofen 05/19/2022 Swelling, redness, hives Latex 03/18/2011 Rash Paroxetine Hcl 10/24/2015 Foggy/visual impairment documented as of this encounter (statuses as of 07/11/2024) Medications TYLENOL ARTHRITIS PAIN 650 MG PO [...] Fluocinolone Acetonide Scalp 0.01 % External Oil ([place]oot[place]/FS Scalp) Apply to external ears as needed [...] as of this encounter (statuses as of 07/11/2024) Active Problems Problem Noted Date Diagnosed Date Chronic diarrhea 06/29/2024 Rectal itching 06/29/2024 Chronic diastolic congestive heart failure 04/14 Heart failure, diastolic, with acute decompensat ion 04/14/2024 Leg mass, right 04/13/2024 Leg cramping 07/12/2023 Leg swelling 08/26/2022 Advanced directives, counseling/discussion 03/10 Overview (07/20/2008): PROJECT: #[id number], STUDENT SPECIALIST: Angelito Chen MD SUMMARY: Patients with CHD are randomized to darapladib (Lp-PLA2 inhibitor) or placebo in addition to standard of care medications to evaluate incidence of major coronary events. CONTACTS: During normal business hours, contact Clincal Research Coordinator at appropriate clinic location, after hours on-call Clinical Research Coordinator via the [facility] hospital twine reeling machine operator ([phone]). The study sponsor can be reached at: Prolapse of vaginal vault after hysterectomy Rectocele 09/13/2020 History of cigarette smoking 09/13/2020 Overview (09/13/2020): 30 pack year Diverticulosis of large intestine without hemorr lucy 08/02/2019 Cystocele, lateral 06/28/2018 NOEL (generalized anxiety disorder) 05/23/2018 ASCVD (arteriosclerotic cardiovascular disease) 03/09/2018 Cardiac pacemaker in situ 11/12/2017 Sick sinus syndrome 11/11/2017 Old [place] (myocardial infarction) 11/11/2017 Peripheral vascular disease 10/01/2017 HTN, goal below 130/80 10/03/2015 Anemia due to vitamin B12 deficiency 08/26/2015 Vitamin D deficiency 08/26/2015 DDD (degenerative disc disease), cervical 2013 Gastroesophageal reflux disease with esophagitis 12/21/2011 IBS (irritable bowel syndrome) 06/11/2011 Dyslipidemia 02/28/2009 Overview (02/28/2009): Per Lipid Taxonomy. Generalized osteoarthritis Rosacea documented as of this encounter (statuses as of 07/11/2024) Resolved Problems Problem Noted Date Diagnosed Date Resolved Date Depression, unspecified 12/23/2022 1206/2022 Migraine with aura, not intr actable, without status migrainosus 07/07/2022 07/05/2023 Hematuria, gross 03/04/2021 04/13/2024 History of UTI 03/04/2021 04/13/2024 Coronary artery disease invo lving [place] coronary artery of [place] heart with unstable angina pectoris 07/18/2020 04/06/2023 Gastroesophageal reflux dise ase without esophagitis 06/11/2020 03/31/2022 Pain, dental 12/04/2017 06/24/2018 Visual loss 03/29/2017 10/01/2017 Headache, unspecified headache type 03/29/2017 11/11/2017 Neck discomfort 03/29/2017 10/01/2017 Abdominal pain, right upper quadrant 09/04/2016 12/07/2016 Chest pain, non-cardiac 08/09/2016 04/0 07/2018 Overview (08/10/2016): Cath [facility] 07/2016 with no changes - old AGRONOMY INSTRUCTOR Diagonal Abnormal nuclear stress test 07/27/2016 11/11/2017 Overview (08/10/2016): anterolat ischemia on nuclear 07/2016, totally expected as she has chronic total diagnonal occlusion Moderate persistent asthma w ithout complication 04/30/2016 05/19/2022 Viral URI with cough 03/01/2016 017 Coronary artery disease invo lving [place] coronary artery of [place] heart with unstable angina pectoris 10/03/2015 06/11/2020 Overview (08/10/2016): Splicing Machine Operator: Amador Barry PA-C [facility] [place] wall [place] at the age of 45 s/p PTCA of the LAD at [place] S/p Cath 2010, with AGRONOMY INSTRUCTOR of the diag 07/2016 [facility]: moderate ischemia in a large portion of the anterior lateral and lateral myocardium.EF 76% 07/2016 Cath [facility] for atyp back pain and abnl nuclear stress: Patent LAD and RCA, known AGRONOMY INSTRUCTOR of the diagonal. Anxiety 05/21/2015 06/24/2018 Paraesophageal hernia 02/04/20152019 Cholelithiasis 11/05/2011 11/11/2017 Old myocardial infarct 10/11/200806/24 Overview (10/11/2008): Modified by Acute [place] Protocol #5. Follow-up of anterolateral m yocardial [...] 06/09/2002 10/11/2008 Overview (10/11/2008): Modified by Acute [place] Protocol #5. CORONARY ATHEROSCLEROSIS VESSEL NOS 02/15/2002 10/03/2015 Dyslipidemia, goal to be determined 02/15/2002 02/13/2009 Overview (02/13/2009): Per Lipid Taxonomy DIVERTICULITIS OF COLON 07/21 PURE HYPERCHOLESTEROLEM 02/19 Overview (02/28/2009): Per Lipid Taxonomy. Acute TN, anterior wall 09/20 Overview (10/11/2008): Modified by Acute [place] Protocol #5. 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, including hip 11/11/2017 documented as of this encounter (statuses as of 07/11/2024) Immunizations Name Administration Dates Next Due COVID-19 mRNA, LNP-s, No Pre serve, 2-Dose Series (Tape TV) 02/11/2021,06/10/2020,05/15/2020 COVID-19, MRNA-LNP, PF, 30 M CG/0.3 mL, 12 YRS AND ABOVE, IM (Fibroblast-Comirnat) 12/10/2023,06/17/2023 Covid-19, Mrna, Lnp-s, Pf, B ivalent, [...] No 08/11/2023 Does the household have a mclaren flintr source of income? 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 Frida, SARITHA, BENJY [facility] * Telephone Encounter - Rehana Mena LPN - 07/10/2024 3:38 PM EDT Not sure why this was discontinued a day after it was order. Are you good with refilling this? Order pend below if you agree. * Telephone Encounter - Marsha Moser CPhT - 07/10/2024 11:48 AM EDT Patient requesting refills for Nitroglycerin 0.4 % Rectal Ointment . Upon chart review, medication is listed as discontinued, with discontinuation reason as "None". Please advise if you wish to continue this therapy for the patient and send new prescription to [facility]. Pt stating she wants to get this medication. Thank you, Marsha Moser CPhT Media Relations Associate II [facility] 07/10/2024,11:48 AM documented in this encounter Plan of Treatment Upcoming Encounters Date Type Department Care Team (Late st Contact Info) Description 07/14/2024 8:40 AM EDT Office Visit Family Practice [facility] [address] [address] Rosalinda Peterson CRNP [address] [place] [id number] 08/03/2024 9:25 AM EDT Office Visit Urogynecology [facility] [address] [place] [phone] Hiro Lyons MD [address] [place] [address] Nurse Rahel Ramesh Bandar [address] [place] [address] 08/08/2024 11:30 AM EDT Office Visit Gastroenterology, [facility] [address] [place] [phone] Aster Dawson CRNP [address] [place] [address] 08/11/2024 9:30 AM EDT Cardiac Studies Cardiac Studies, [facility] [address] [place] [phone] 11/15/2024 1:00 PM EDT Hospital Encounter ENDO OSS, Endoscopy Room [facility] [address] [place] [phone] So Morris MD [address] [place] [address] 11/15/2024 1:00 PM EDT - 11/15/2024 1:30 PM EDT Surgery ENDO [facility], Endoscopy Room [facility] [address] [place] [phone] So Morris MD [address] [place] [address] COLONOSCOPY FLEXIBLE PROXIMAL DIAGNOSTIC 03/08/2025 3:00 PM EST Office Visit Cardiology, [facility] [address] [place] [phone] Valerie Ibrahim CRNP [address] [place] [address] 06/21/2025 10:15 AM EDT Office Visit OphthalmologyLiam [address] [address] Kenny Hector DO [address] [address] Nurse Liam Ophthal[facility] [address] [phone] Scheduled Procedures Name Priority Associated Diagnoses Date/Ti [...] this encounter Medical Devices Implanted Type Area Aerial Applicator Pilot Device Identifier Shelf Expiration Date Model / Serial / Lot Alloderm 2x4 Sheet [id number] ( 8 Units ) - [id number] - [id number] Implanted:Qty : 8 on 02/04/2015 by Marques Rodriguez MD at OR [facility] Tissue - Human N/A: Esophagus [employer] 07/19/2016 [id number] / [id number] / [id number] Stent Eso Gw [id number] - [id number] Implanted:Qty : 1 on 02/05/2015 by Marques Rodriguez MD at OR [facility] N/A: Esophagus [employer] 05/19/2017 [id number] / / [id number] documented as of this encounter Advance Directives Documents on File Type Date Recorded Patient Equipment Operator Intermodal Yard Expl anation Power of Painting Contractor 01/22/2005 POWER OF A TTORNEY DURABLE POWER OF HYBRID POWERTRAIN DEVELOPMENT ENGINEER * Full Code (Latest Code Status on [...] File Name Relationship Healthcare Agent Relationship Communication Dongmaribel Saavedrabailey Spouse Health Care Sneha r of Painting Contractor Care Teams Equipment Service Technician Relationship Specialty Start Date End Date Rosalinda Peterson CRNP [address] [address] PCP - General Nurse Practitioner 04/05/24 documented as of this encounter
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
--- OUTSIDE RECORDS SUMMARY | 2024-08-01 14:17 | External Medical Summary | Summary of Care ---
Author Name Unknown Organization [facility] Address [address] [place] [address] Phone [phone] Care Team Providers Care Thimble Press Operator Name Role Phone Rosalinda Peterson Charu BENJY Primary Care Provider Reason for Visit * Reason Onset Date Comments Other 06/30/2024 Encounter Details Date Type Department Care Team (Late st Contact Info) Description 06/30/2024 Telephone Gastroenterology, [facility] [address] [place] [phone] Aster Dawson CRNP [address] [place] [address] Other (//) Allergies Active Allergy Reactions Criticality [...] Fluocinolone Acetonide Scalp 0.01 % External Oil ([place]-Smoothe/FS Scalp) Apply to external ears as needed [...] mouth at bedtime. 90 Tablet 3 5 4:17 PM EST 025 Active LORazepam 0.5 MG Oral Tablet [...] Advanced directives, counseling/discussion 03/10 Overview (07/20/2008): PROJECT: #[id number], ICING AND GLAZE MAKER: Angelito Chen MD SUMMARY: Patients with CHD are randomized to darapladib (Lp-PLA2 inhibitor) or placebo in addition to standard of care medications to evaluate incidence of major coronary events. CONTACTS: During normal business hours, contact Clincal Research Coordinator at appropriate clinic location, after hours on-call Clinical Research Coordinator via the [facility] hospital oxyacetylene torch operator ([phone]). The study sponsor can be reached at: Prolapse of vaginal vault after hysterectomy Rectocele 09/13/2020 History of cigarette smoking 09/13/2020 Overview (09/13/2020): 30 pack year Diverticulosis of large intestine without hemorr lucy 08/02/2019 Cystocele, lateral 06/28/2018 NOEL (generalized anxiety disorder) 05/23/2018 ASCVD (arteriosclerotic cardiovascular disease) 03/09/2018 Cardiac pacemaker in situ 11/12/2017 Sick sinus syndrome 11/11/2017 Old [place] (myocardial infarction) 11/11/2017 Peripheral vascular disease 10/01/2017 [...] Diagnosed Date Resolved Date Depression, unspecified 12/23/2022 120 06/2022 Migraine with aura, not intr actable, without status migrainosus 07/07/2022 07/05/2023 Hematuria, gross 03/04/2021 04/13/2024 History of UTI 03/04/2021 04/13/2024 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 07/18/2020 04/06/2023 Gastroesophageal reflux dise ase without esophagitis 06/11/2020 03/31/2022 Pain, dental 12/04/2017 06/24/2018 Visual loss 03/29/2017 10/01/2017 Headache, unspecified headache type 03/29/2017 11/11/2017 Neck discomfort 03/29/2017 10/01/2017 Abdominal pain, right upper quadrant 09/04/2016 12/07/2016 Chest pain, non-cardiac 08/09/2016 04/0 07/2018 Overview (08/10/2016): Cath [facility] 07/2016 with no changes - old STREETCAR STARTER Diagonal Abnormal nuclear stress test 07/27/2016 11/11/2017 Overview (08/10/2016): anterolat ischemia on nuclear 07/2016, totally expected as she has chronic total diagnonal occlusion Moderate persistent asthma w ithout complication 04/30/2016 05/19/2022 Viral URI with cough 03/01/2016 017 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 Anxiety 05/21/2015 06/24/2018 Paraesophageal hernia 02/04/20152019 Cholelithiasis 11/05/2011 11/11/2017 Old myocardial infarct 10/11/200806/24 Overview (10/11/2008): Modified by Acute [place] Protocol #5. Follow-up of anterolateral m yocardial [...] 06/09/2002 10/11/2008 Overview (10/11/2008): Modified by Acute [place] Protocol #5. CORONARY ATHEROSCLEROSIS VESSEL NOS 02/15/2002 10/03/2015 Dyslipidemia, goal to be determined 02/15/2002 02/13/2009 Overview (02/13/2009): Per Lipid Taxonomy DIVERTICULITIS OF COLON 07/21 PURE HYPERCHOLESTEROLEM 02/19 Overview (02/28/2009): Per Lipid Taxonomy. Acute [place], anterior wall 09/20 Overview (10/11/2008): Modified by Acute [place] Protocol #5. 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, including hip 11/11/2017 documented as of this encounter (statuses as of 06/30/2024) Immunizations Name Administration Dates Next Due COVID-19 mRNA, LNP-s, No Pre serve, 2-Dose Series ([facility]) 02/11/2021,06/10/2020,05/15/2020 COVID-19, MRNA-LNP, PF, 30 M CG/0.3 mL, 12 YRS AND ABOVE, IM [facility] 12/10/2023,06/17/2023 Covid-19, Mrna, Lnp-s, Pf, B ivalent, 30 Mcg, IM, 12 yrs and above ([facility]) 12/04/2021 H1N1 2009 Influenza, IM 05/29/2009 Pneumococcal [...] 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 Not on file Not on file Not [...] 11:30 AM EDT Rozina Galicia, MSN, BENJY [facility] * Telephone Encounter - Nancy Mishra OSA [...] 8:40 AM EDT Office Visit Family Practice [facility] [address] [place] [phone] Rosalinda Peterson CRNP [address] [place] [address] 08/03/2024 9:25 AM EDT Office Visit Urogynecology [facility] [address] [place] [address] Hiro Lyons MD [address] [place] [address] Nurse Rahel Ramesh [address] [place] [address] 08/08/2024 11:30 AM EDT Office Visit Gastroenterology, [facility] [address] [place] [phone] Aster Dawson CRNP [address] [place] [address] 08/11/2024 9:30 AM EDT Cardiac Studies Cardiac Studies, [facility] [address] [place] [phone] 11/15/2024 1:00 PM EDT Hospital Encounter ENDO OSSC, Endoscopy Room [facility] [address] [place] [address] So Morris MD [address] [place] [address] 11/15/2024 1:00 PM EDT - 11/15/2024 1:30 PM EDT Surgery ENDO OSS, Endoscopy Room [facility] [address] [place] [phone] So Morris MD [address] [place] [address] COLONOSCOPY FLEXIBLE PROXIMAL DIAGNOSTIC 03/08/2025 3:00 PM EST Office Visit Cardiology, [facility] [address] [place] [phone] Valerie Ibrahim CRNP [address] [place] [address] 06/21/2025 10:15 AM EDT Office Visit OphthalmologyLiam [address] [place] [phone] Kenny Hector DO [address] [address] Nurse Liam Ophthalmology [address] [place] [id number] Scheduled Procedures Name Priority Associated Diagnoses Date/Ti [...] this encounter Medical Devices Implanted Type Area Microbiology Analyst Device Identifier Shelf Expiration Date Model / Serial / Lot Alloderm 2x4 Sheet [id number] ( 8 Units ) - [id number] - [id number] Implanted:Qty : 8 on 02/04/2015 by Marques Rodriguez MD at OR [facility] Tissue - Human N/A: Esophagus [employer] 07/19/2016 [id number] / [id number] Stent Eso Gw [id number] - [id number] Implanted:Qty : 1 on 02/05/2015 by Marques Rodriguez MD at OR [facility] N/A: Esophagus [employer] 05/19/2017 [id number] / / [id number] documented as of this encounter Advance Directives Documents on File Type Date Recorded Patient Director Of Enterprise Applications Expl anation Power of Premix Concrete Batcher 01/22/2005 POWER OF A TTORNEY DURABLE POWER OF HOSPICE PLAN ADMINISTRATOR * Full Code (Latest Code Status on [...] Saavedrabailey Spouse Health Care Sneha r of Premix Concrete Batcher Care Teams Thimble Press Operator Relationship Specialty Start Date End Date Rosalinda Peterson CRNP [address] [place] [address] PCP - General Nurse Practitioner 04/05/24 documented as of this encounter
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
--- OUTSIDE RECORDS SUMMARY | 2024-08-01 14:17 | External Medical Summary | Summary of Care ---
Author Name Unknown Organization [facility] Address [address] [place] [address] Phone [phone] Care Team Providers Care Needle Maker Name Role Phone Rosalinda Peterson Primary Care Provider Reason for Visit * Reason Onset Date Comments Med Request 07/10/2024 Encounter Details Date Type Department Care Team (Late st Contact Info) Description 07/10/2024 Telephone Family Practice [facility] [address] [place] [address] Rosalinda Peterson CRNP [address] [place] [place] [address] Med Request Allergies Active Allergy Reactions [...] Fluocinolone Acetonide Scalp 0.01 % External Oil ([place]-Smoothe/FS Scalp) Apply to external ears as needed [...] Advanced directives, counseling/discussion 03/10 Overview (07/20/2008): PROJECT: #[id number], OFFICE MANAGER EXECUTIVE ASSISTANT: Angelito Chen MD SUMMARY: Patients with CHD are randomized to darapladib (Lp-PLA2 inhibitor) or placebo in addition to standard of care medications to evaluate incidence of major coronary events. CONTACTS: During normal business hours, contact Clincal Research Coordinator at appropriate clinic location, after hours on-call Clinical Research Coordinator via the [facility] hospital operator weapon locating radar ([phone]). The study sponsor can be reached at: Prolapse of vaginal vault after hysterectomy Rectocele 09/13/2020 History of cigarette smoking 09/13/2020 Overview (09/13/2020): 30 pack year Diverticulosis of large intestine without hemorr lucy 08/02/2019 Cystocele, lateral 06/28/2018 NOEL (generalized anxiety disorder) 05/23/2018 ASCVD (arteriosclerotic cardiovascular disease) 03/09/2018 Cardiac pacemaker in situ 11/12/2017 Sick sinus syndrome 11/11/2017 Old VT (myocardial infarction) 11/11/2017 Peripheral vascular disease 10/01/2017 [...] 03/04/2021 04/13/2024 Coronary artery disease invo lving [place] coronary artery of [place] heart with unstable angina pectoris 07/18/2020 04/06/2023 Gastroesophageal reflux dise ase without esophagitis 06/11/2020 03/31/2022 Pain, dental 12/04/2017 06/24/2018 Visual loss 03/29/2017 10/01/2017 Headache, unspecified headache type 03/29/2017 11/11/2017 Neck discomfort 03/29/2017 10/01/2017 Abdominal pain, right upper quadrant 09/04/2016 12/07/2016 Chest pain, non-cardiac 08/09/2016 04/0 07/2018 Overview (08/10/2016): Cath [facility] 07/2016 with no changes - old WOOL SPOTTER Diagonal Abnormal nuclear stress test 07/27/2016 11/11/2017 Overview (08/10/2016): anterolat ischemia on nuclear 07/2016, totally expected as she has chronic total diagnonal occlusion Moderate persistent asthma w ithout complication 04/30/2016 05/19/2022 Viral URI with cough 03/01/2016 017 Coronary artery disease invo lving [place] coronary artery of [place] heart with unstable angina pectoris 10/03/2015 06/11/2020 Overview (08/10/2016): Behavioral Health Worker: Amador Barry PA-C [facility] Ant wall [place] at the age of 45 s/p PTCA of the LAD at [place] S/p Cath 2010, with WOOL SPOTTER of the diag 07/2016 MPI snyder: moderate ischemia in a large portion of the anterior lateral and lateral myocardium.EF 76% 07/2016 Cath [facility] for atyp back pain and abnl nuclear stress: Patent LAD and RCA, known WOOL SPOTTER of the diagonal. Anxiety 05/21/2015 06/24/2018 Paraesophageal hernia 02/04/20152019 Cholelithiasis 11/05/2011 11/11/2017 Old myocardial infarct 10/11/200806/24 Overview (10/11/2008): Modified by Acute [place] Protocol #5. Follow-up of anterolateral m yocardial [...] 06/09/2002 10/11/2008 Overview (10/11/2008): Modified by Acute [place] Protocol #5. CORONARY ATHEROSCLEROSIS VESSEL NOS 02/15/2002 10/03/2015 Dyslipidemia, goal to be determined 02/15/2002 02/13/2009 Overview (02/13/2009): Per Lipid Taxonomy DIVERTICULITIS OF COLON 07/21 PURE HYPERCHOLESTEROLEM 02/19 Overview (02/28/2009): Per Lipid Taxonomy. Acute [place], anterior wall 09/20 Overview (10/11/2008): Modified by Acute [place] Protocol #5. 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, including hip 11/11/2017 documented as of this encounter (statuses as of 07/11/2024) Immunizations Name Administration Dates Next Due COVID-19 mRNA, LNP-s, No Pre serve, 2-Dose Series (Cosyforyou) 02/11/2021,06/10/2020,05/15/2020 COVID-19, MRNA-LNP, PF, 30 M CG/0.3 mL, 12 YRS AND ABOVE, IM ([facility] 12/10/2023,06/17/2023 Covid-19, Mrna, Lnp-s, Pf, B ivalent, 30 Mcg, IM, 12 yrs and above (Cosyforyou) 12/04/2021 H1N1 2009 Influenza, IM 05/29/2009 Pneumococcal [...] 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 * Telephone Encounter - Rosalinda Peterson CRNP - 07/11/2024 7:54 AM EDT It has been replaced by nifedipine paste- ordered by Mora in September. Frida, SARITHA, BENJY [facility] * Telephone Encounter - Rehana Mena [...] the patient and send new prescription to [facility]. Pt stating she wants to get this medication. Thank you, Marsha Moser CPhT Bracelet And Brooch Maker II [facility] 07/10/2024,11:48 AM documented in this encounter Plan of Treatment Upcoming Encounters Date Type Department Care Team (Late st Contact Info) Description 07/14/2024 8:40 AM EDT Office Visit Family Practice [facility] [address] [address] Rosalinda Peterson CRNP [address] [address] 08/03/2024 9:25 AM EDT Office Visit Urogynecology [facility] [address] [address] Hiro Lyons MD [address] [address] Nurse Rahel Ramesh [address] [address] 08/08/2024 11:30 AM EDT Office Visit Gastroenterology, [facility] [address] [place] [address] Aster Dawson CRNP [address] [place] [address] 08/11/2024 9:30 AM EDT Cardiac Studies Cardiac Studies, [facility] [address] [place] [address] 11/15/2024 1:00 PM EDT Hospital Encounter ENDO [facility], Endoscopy Room [facility] [address] [place] [phone] So Morris MD [address] [place] [address] 11/15/2024 1:00 PM EDT - 11/15/2024 1:30 PM EDT Surgery ENDO [facility], Endoscopy Room [facility] [address] [place] [address] So Morris MD [address] [place] [address] COLONOSCOPY FLEXIBLE PROXIMAL DIAGNOSTIC 03/08/2025 3:00 PM EST Office Visit Cardiology, [facility] [address] [place] [address] Valerie Ibrahim CRNP [address] [place] [address] 06/21/2025 10:15 AM EDT Office Visit Ophthalmology, [facility] [address] [facility] [address] [address] Kenny Hector DO [address] [place] [address] [place], Nurse Ophthalmology [address] [place] [address] Scheduled Procedures Name Priority Associated Diagnoses Date/Ti [...] this encounter Medical Devices Implanted Type Area Plaster Mold Maker Device Identifier Shelf Expiration Date Model / Serial / Lot Alloderm 2x4 Sheet [id number] ( 8 Units ) - [id number] - [id number] Implanted:Qty : 8 on 02/04/2015 by Marques Rodriguez MD at [place] [facility] Tissue - Human N/A: Esophagus LIFE CELL EMMANUEL 07/19/2016 [id number] / [id number] / [id number] Stent Eso Gw [id number] - [id number] Implanted:Qty : 1 on 02/05/2015 by Marques Rodriguez MD at OR [facility] N/A: Esophagus [employer] 05/19/2017 [id number] / / [id number] documented as of this encounter Advance Directives Documents on File Type Date Recorded Patient Video Game Engineer Expl anation Power of Commercial Mortgage Broker 01/22/2005 POWER OF A TTORNEY DURABLE POWER OF MOTORS AND GENERATORS INSPECTOR * Full Code (Latest Code Status on [...] Mcguire Spouse Health Care Sneha r of Commercial Mortgage Broker Care Teams Needle Maker Relationship Specialty Start Date End Date Rosalinda Peterson CRNP [address] [address] PCP - General Nurse Practitioner 04/05/24 documented as of this encounter
--- OUTSIDE RECORDS SUMMARY | 2024-08-01 14:18 | External Medical Summary ---
Author Name Unknown Address Unknown Organization K01:[facility] [place] [address] [facility] [address] Laboratory Report Ordering Provider Test Date Status LOIS MOSQUEDA 06/29/2024 16:18:10 Final <10,000 colonies/ml normal f zeny, one colony type Observation Date Value Abnormality Reference (Units ) Status Bacteria identified in Specimen by Culture 06/29/2024 16:18:10 [id number]^KLEBSIELL A PNEUMONIAE Abnormal Final >100,000 colonies/mL Klebsie lla pneumoniae Performing Location [facility] [place] [address] [place] [address] Ordering Provider Test Date Status LOIS MOSQUEDA 06/29/2024 16:18:10 Final Observation Date Value Abnormality Reference (Units ) Status Ampicillin + Sulbactam 06/29/2024 16:18:10 4 Susceptible Final Cefazolin 06/29/2024 16:18:10 <=4 Susceptible Final Cefepime susceptibility 06/29/2024 16:18:10 <=1 Susceptible Final Ceftriaxone suceptibility 06/29/2024 16:18:10 <=1 Susceptible Final Ciprofloxacin 06/29/2024 16:18:10 <=0.25 Susceptible Final Due to serious side effects, the FDA has advised against using Ciprofloxacin to treat uncomplicated UTIs and respiratory tract infections unless there are no alternative treatment options. Gentamicin susceptibility 06/29/2024 16:18:10 <=1 Susc eptible Final Nitrofurantoin susceptibility 06/29/2024 16:18:10 64 Intermediate Final Piperacillin + Tazobactamsusceptibility 06/29/2024 16:18:10 <=4 Susceptible Final TMP-SMZ susceptibility 06/29/2024 16:18:10 <=20 Suscept ible Final Test: Culture, Urine, Quanti tative
Specimen Source: Urine, Clean Catch
Specimen Type: Urine
Specimen Date: 06/29/2024 1618
Result Date: 07/01/2024 0750
Result Status: Final result
Abnormal: Yes
Resulting Lab: LABORATORY [facility]
[address]
[facility] [address]

CULTURE

>100,000 colonies/mL Klebsiella pneumoniae (Abnormal)

<10,000 colonies/ml normal aftab, one colony type

SUSCEPTIBILITY

Klebsiella
pneumoniae
METHOD MICROBROTH DILUTIONS

AMPICILLIN/SULBACTAM 4 Susceptible
CEFAZOLIN <=4 Susceptible
CEFEPIME <=1 Susceptible
CEFTRIAXONE <=1 Susceptible
CIPROFLOXACIN <=0.25 Susceptible
[1]
GENTAMICIN <=1 Susceptible
NITROFURANTOIN 64 Intermediate
PIPERACILLIN TAZOBACTAM <=4 Susceptible
TRIMETH/SULFAMETHOXAZOLE <=20 Susceptible

[1] Due to serious side effects, the FDA has advised against using
Ciprofloxacin to treat uncomplicated UTIs and respiratory tract infections
unless there are no alternative treatment options.

null Performing Location [facility] [place] [address] [facility] [address]
--- OUTSIDE RECORDS SUMMARY | 2024-08-01 14:18 | External Medical Summary | Summary of Care ---
Author Name Unknown Organization [facility] Address [address] [place] [address] Phone [phone] Care Team Providers Care Bus Company Manager Name Role Phone Rosalinda Peterson Primary Care Provider Encounter Details Date Type Department Care Team (Late st Contact Info) Description 06/29/2024 Result Scan Unspecified Department Harsh Waller MD [address] [place] [address] <No scans attached> Allergies Active Allergy Reactions Criticality Noted Date [...] Fluocinolone Acetonide Scalp 0.01 % External Oil ([place]-Smoothe/FS Scalp) Apply to external ears as needed [...] by mouth at bedtime. 90 Tablet 3 04/14/2024 4:17 PM EST 04/13/19 25 Active LORazepam 0.5 MG Oral [...] 05/26/2024 10:29 AM EST 05/23/19 25 Active Nitroglycerin 0.4 % Rectal Ointment Administer 1 Application into the rectum every evening for 14 days. 30 g 06/30/19 25 025 Active documented as of this encounter (statuses as of 06/30/2024) Active Problems Problem Noted Date Diagnosed Date Chronic diarrhea 06/29/2024 Rectal itching 06/29/2024 Chronic diastolic congestive heart failure 04/14 Heart failure, diastolic, with acute decompensat ion 04/14/2024 Leg mass, right 04/13/2024 Leg cramping 07/12/2023 Leg swelling 08/26/2022 Advanced directives, counseling/discussion 03/10 Overview (07/20/2008): PROJECT: #[id number], MID LEVEL NET DEVELOPER: Angelito Chen MD SUMMARY: Patients with CHD are randomized to darapladib (Lp-PLA2 inhibitor) or placebo in addition to standard of care medications to evaluate incidence of major coronary events. CONTACTS: During normal business hours, contact Clincal Research Coordinator at appropriate clinic location, after hours on-call Clinical Research Coordinator via the [facility] slusher operator ([phone]). The study sponsor can be reached at: Prolapse of vaginal vault after hysterectomy Rectocele 09/13/2020 History of cigarette smoking 09/13/2020 Overview (09/13/2020): 30 pack year Diverticulosis of large intestine without hemorr lucy 08/02/2019 Cystocele, lateral 06/28/2018 NOEL (generalized anxiety disorder) 05/23/2018 ASCVD (arteriosclerotic cardiovascular disease) 03/09/2018 Cardiac pacemaker in situ 11/12/2017 Sick sinus syndrome 11/11/2017 Old ID (myocardial infarction) 11/11/2017 Peripheral vascular disease 10/01/2017 [...] 03/04/2021 04/13/2024 Coronary artery disease invo lving [place] coronary artery of [place] heart with unstable angina pectoris 07/18/2020 04/06/2023 Gastroesophageal reflux dise ase without esophagitis 06/11/2020 03/31/2022 Pain, dental 12/04/2017 06/24/2018 Visual loss 03/29/2017 10/01/2017 Headache, unspecified headache type 03/29/2017 11/11/2017 Neck discomfort 03/29/2017 10/01/2017 Abdominal pain, right upper quadrant 09/04/2016 12/07/2016 Chest pain, non-cardiac 08/09/2016 040 07/2018 Overview (08/10/2016): Cath [facility] 07/2016 with no changes - old ACCOUNT RESOLUTION EXPERT Diagonal Abnormal nuclear stress test 07/27/2016 11/11/2017 Overview (08/10/2016): anterolat ischemia on nuclear 07/2016, totally expected as she has chronic total diagnonal occlusion Moderate persistent asthma w ithout complication 04/30/2016 05/19/2022 Viral URI with cough 03/01/2016 017 Coronary artery disease invo lving [place] coronary artery of [place] heart with unstable angina pectoris 10/03/2015 06/11/2020 Overview (08/10/2016): Product Promoter Sales Person: [facility] [place] wall [place] at the age of 45 s/p PTCA of the LAD at [place] S/p Cath 2010, with ACCOUNT RESOLUTION EXPERT of the diag 07/2016 [facility]: moderate ischemia in a large portion of the anterior lateral and lateral myocardium.EF 76% 07/2016 Cath [facility] for atyp back pain and abnl nuclear stress: Patent LAD and RCA, known ACCOUNT RESOLUTION EXPERT of the diagonal. Anxiety 05/21/2015 06/24/2018 Paraesophageal hernia 02/04/20152019 Cholelithiasis 11/05/2011 11/11/2017 Old myocardial infarct 10/11/200806/24 Overview (10/11/2008): Modified by Acute [place] Protocol #5. Follow-up of anterolateral m yocardial [...] 06/09/2002 10/11/2008 Overview (10/11/2008): Modified by Acute [place] Protocol #5. CORONARY ATHEROSCLEROSIS VESSEL NOS 02/15/2002 10/03/2015 Dyslipidemia, goal to be determined 02/15/2002 02/13/2009 Overview (02/13/2009): Per Lipid Taxonomy DIVERTICULITIS OF COLON 07/21 PURE HYPERCHOLESTEROLEM 02/19 Overview (02/28/2009): Per Lipid Taxonomy. Acute ID, anterior wall 09/20 Overview (10/11/2008): Modified by Acute [place] Protocol #5. 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, including hip 11/11/2017 documented as of this encounter (statuses as of 06/30/2024) Immunizations Name Administration Dates Next Due COVID-19 mRNA, LNP-s, No Pre serve, 2-Dose Series (Five9) 02/11/2021,06/10/2020,05/15/2020 COVID-19, MRNA-LNP, PF, 30 M CG/0.3 mL, 12 YRS AND ABOVE, IM (Alticast-ComirnatiLogon) 12/10/2023,06/17/2023 Covid-19, Mrna, Lnp-s, Pf, B ivalent, 30 Mcg, IM, 12 yrs and above (Five9) 12/04/2021 H1N1 2009 Influenza, IM 05/29/2009 Pneumococcal [...] No 08/11/2023 Does the household have a [facility] source of income? 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 on file Not on file Not [...] 06/30/2024 9:00 AM EDT Office Visit Gastroenterology, [facility] [address] [phone] Atser Dawson CRNP [address] [place] [address] 07/14/2024 8:40 AM EDT Office Visit Family Practice [facility] [address] [place] [address] Rosalinda Peterson CRNP [address] [place] [address] 08/03/2024 9:25 AM EDT Office Visit Urogynecology [facility] [address] [address] Hiro Lyons MD [address] [place] [address] Nurse Rahel Ramesh [address] [place] [address] 08/11/2024 9:30 AM EDT Cardiac Studies Cardiac Studies, [facility] [address] [place] [phone] 03/08/2025 3:00 PM EST Office Visit Cardiology, [facility] [address] [place] [phone] Valerie Ibrahim CRNP [address] [place] [address] 06/21/2025 10:15 AM EDT Office Visit OphthalmologyLiam [address] [address] Kenny Hector DO [address] [address] Nurse Liam Ophthalmology [address] [address] Health Maintenance Due Date Last Done Comments [...] this encounter Medical Devices Implanted Type Area Mac Artist Device Identifier Shelf Expiration Date Model / Serial / Lot Alloderm 2x4 Sheet [id number] ( 8 Units ) - [id number] - [id number] Implanted:Qty : 8 on 02/04/2015 by Marques Rodriguez [place] [facility] [place] - Human N/A: Esophagus LIFE CELL EMMANUEL 07/19/2016 [id number] / [id number] / [id number] Stent Eso Gw [id number] - [id number] Implanted:Qty : 1 on 02/05/2015 by Marques Rodriguez MD [place] [facility] N/A: Esophagus [employer]US [employer] 05/19/2017 [id number] / / [id number] documented as of this encounter Procedures Procedure Name Priority Date/Time Associated Diagnosis Comments CARDIOLOGY SCANNED RESULT 06/29/2024 documented in this encounter Results * CARDIOLOGY SCANNED RESULT (06/29/2024) 06/29/2024 Harsh Waller MD OTHER Final Result documented in this encounter Advance Directives Documents on File Type Date Recorded Patient Flight Superintendent Expl anation Power of Motor Transport Inspector 01/22/2005 POWER OF A TTORNEY DURABLE POWER OF LOGISTICS CLERK * Full Code (Latest Code Status on [...] Saavedrabailey Spouse Health Care Sneha r of Motor Transport Inspector Care Teams Bus Company Manager Relationship Specialty Start Date End Date Rosalinda Peterson CRNP [address] [place] [address] PCP - General Nurse Practitioner 04/05/24 documented as of this encounter
--- OUTSIDE RECORDS SUMMARY | 2024-08-01 14:18 | External Medical Summary | Summary of Care ---
Author Name Unknown Organization [facility] Address [address] [place] [address] Phone [phone] Care Team Providers Care Naphthalene Still Operator Name Role Phone Rosalinda Peterson Charu BENJY Primary Care Provider Reason for Visit * Reason Onset Date Comments Test Results Imaging Study 06/13/2024 Encounter Details Date Type Department Care Team (Late st Contact Info) Description 06/13/2024 Telephone Gastroenterology, [facility] [address] [place] [address] Aster Dawson CRNP [address] [place] [id number] Test Results Imaging Study Allergies Active Allergy Reactions Criticality Noted Date Comments Adhesive Tape 05/27/2021 Other reaction(s): Rash Chlorhexidine Low 12/30/2020 Other reaction(s): rash, itching Escitalopram Oxalate Itching,Other (Please comment) 09/07/2011 Jittery Ibuprofen 05/19/2022 Swelling, redness, hives Latex 03/18/2011 Rash Paroxetine Hcl 10/24/2015 Foggy/visual impairment documented as of this encounter (statuses as of 06/26/2024) Medications TYLENOL ARTHRITIS PAIN 650 MG PO [...] TUESDAYS, THURSDAYS AND SATURDAYS 90 Tablet 2 04/06/2024 1:35 PM EST 10/22/19 24 Active busPIRone HCl 5 MG Oral Tablet (Buspar)Indication s:Anxiety TAKE ONE TABLET BY MOUTH TWICE A DAY 180 Tablet 3 05/29/2024 4:06 PM EDT 11/30/19 24 025 Active Bismuth Subsalicylate 262 MG/15ML Oral Suspension (Pepto-Bismol) Take 30 mL by mouth every 4 hours as needed. Active Fluocinolone Acetonide Scalp 0.01 % External Oil ([place]-Smoothe/FS Scalp) Apply to external ears as needed [...] as of this encounter (statuses as of 06/26/2024) Active Problems Problem Noted Date Diagnosed Date Chronic diastolic congestive heart failure 04/14 Heart failure, diastolic, with acute decompensat ion 04/14/2024 Leg mass, right 04/13/2024 Leg cramping 07/12/2023 Leg swelling 08/26/2022 Advanced directives, counseling/discussion 03/10 Overview (07/20/2008): PROJECT: #[id number], ESTATE MANAGER: Angelito Chen MD SUMMARY: Patients with CHD are randomized to darapladib (Lp-PLA2 inhibitor) or placebo in addition to standard of care medications to evaluate incidence of major coronary events. CONTACTS: During normal business hours, contact Clincal Research Coordinator at appropriate clinic location, after hours on-call Clinical Research Coordinator via the [facility] hospital polishing machine operator ([phone]). The study sponsor can be reached at: Prolapse of vaginal vault after hysterectomy Rectocele 09/13/2020 History of cigarette smoking 09/13/2020 Overview (09/13/2020): 30 pack year Diverticulosis of large intestine without hemorr lucy 08/02/2019 Cystocele, lateral 06/28/2018 NOEL (generalized anxiety disorder) 05/23/2018 ASCVD (arteriosclerotic cardiovascular disease) 03/09/2018 Cardiac pacemaker in situ 11/12/2017 Sick sinus syndrome 11/11/2017 Old ME (myocardial infarction) 11/11/2017 Peripheral vascular disease 10/01/2017 HTN, goal below 130/80 10/03/2015 Anemia due to vitamin B12 deficiency 08/26/2015 Vitamin D deficiency 08/26/2015 DDD (degenerative disc disease), cervical 2013 Gastroesophageal reflux disease with esophagitis 12/21/2011 IBS (irritable bowel syndrome) 06/11/2011 Dyslipidemia 02/28/2009 Overview (02/28/2009): Per Lipid Taxonomy. Generalized osteoarthritis Rosacea documented as of this encounter (statuses as of 06/26/2024) Resolved Problems Problem Noted Date Diagnosed Date Resolved Date Depression, unspecified 12/23/2022 1206/2022 Migraine with aura, not intr actable, without status migrainosus 07/07/2022 07/05/2023 Hematuria, gross 03/04/2021 04/13/2024 History of UTI 03/04/2021 04/13/2024 Coronary artery disease invo lving [place] coronary artery of [place] heart with unstable angina pectoris 07/18/2020 04/06/2023 Gastroesophageal reflux dise ase without esophagitis 06/11/2020 03/31/2022 Pain, dental 12/04/2017 06/24/2018 Visual loss 03/29/2017 10/01/2017 Headache, unspecified headache type 03/29/2017 11/11/2017 Neck discomfort 03/29/2017 10/01/2017 Abdominal pain, right upper quadrant 09/04/2016 12/07/2016 Chest pain, non-cardiac 08/09/2016 0407/2018 Overview (08/10/2016): Cath [facility] 07/2016 with no changes - old DONATION WORKER Diagonal Abnormal nuclear stress test 07/27/2016 11/11/2017 Overview (08/10/2016): anterolat ischemia on nuclear 07/2016, totally expected as she has chronic total diagnonal occlusion Moderate persistent asthma w ithout complication 04/30/2016 05/19/2022 Viral URI with cough 03/01/2016 017 Coronary artery disease invo lving [place] coronary artery of [place] heart with unstable angina pectoris 10/03/2015 06/11/2020 Overview (08/10/2016): Rn Surgery Icu: Amador Barry PA-C [facility] 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 Anxiety 05/21/2015 06/24/2018 Paraesophageal hernia 02/04/20152019 Cholelithiasis 11/05/2011 11/11/2017 Old myocardial infarct 10/11/200806/24 Overview (10/11/2008): Modified by Acute ME Protocol #5. Follow-up of anterolateral m yocardial [...] 06/09/2002 10/11/2008 Overview (10/11/2008): Modified by Acute ME Protocol #5. CORONARY ATHEROSCLEROSIS VESSEL NOS 02/15/2002 10/03/2015 Dyslipidemia, goal to be determined 02/15/2002 02/13/2009 Overview (02/13/2009): Per Lipid Taxonomy DIVERTICULITIS OF COLON 07/21 PURE HYPERCHOLESTEROLEM 02/19 Overview (02/28/2009): Per Lipid Taxonomy. Acute ME, anterior wall 09/20 Overview (10/11/2008): Modified by Acute ME Protocol #5. 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, including hip 11/11/2017 documented as of this encounter (statuses as of 06/26/2024) Immunizations Name Administration Dates Next Due COVID-19 mRNA, LNP-s, No Pre serve, 2-Dose Series ([employer]) 02/11/2021,06/10/2020,05/15/2020 COVID-19, MRNA-LNP, PF, 30 M CG/0.3 mL, 12 YRS AND ABOVE, IM ([facility] 12/10/2023,06/17/2023 Covid-19, Mrna, Lnp-s, Pf, B ivalent, 30 Mcg, IM, 12 yrs and above ([employer]) 12/04/2021 H1N1 2008 Influenza, IM 05/29/2009 Pneumococcal Conjugate Vacc, 13 [...] No 08/11/2023 Does the household have a [facility] specialty hospital[facility] source of income? 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 Will call if titration of meds do not help. * Telephone Encounter - Blas Bustos CRNP - 06/26/2024 1:57 PM EDT Yes: Continue the Benefiber daily and take the Miralax QOD or every 3rd day to prevent getting constipated again * Telephone Encounter - Magdalene Loya CMA - 06/26/2024 12:06 PM EDT Please see prior messages.Pt recently taking Miralax daily along with Benefiber for overflow diarrhea after KUB results. Now having frequent semi-formed BM's daily. Pt asking if she can continue the Benefiber daily and take the Miralax QOD or every 3rd day to prevent getting constipated again. Pt would like your advise on how to titrate meds to keep her bowels moving but not have the frequent daily BM's. * Telephone Encounter - Sharon Marmolejo OSA - 06/26/2024 8:57 AM EDT Pt states she is still having some issues and is requesting a call back to discuss her medication. She can be reached at [phone]. Thank you! * Telephone Encounter - Ca Thorne LPN - 06/13/2024 3:42 PM EDT ----- Message from Aster Dawson sent at 06/13/2024 3:38 PM EDT ----- Please inform patient that KUB showed moderate fecal material, consistent with my suspicion of her having overflow diarrhea secondary to constipation. Please have her start MiraLax 17 g daily along with continuing her Benefiber. BENJY Castaneda documented in this encounter Plan of Treatment Upcoming Encounters Date Type Department Care Team (Late st Contact Info) Description 07/05/2024 1:00 PM EDT Office Visit Gastroenterology, [facility] [address] [phone] Aster Dwason CRNP [address] [address] 07/14/2024 8:40 AM EDT Office Visit Family Practice [facility] [address] [address] Rosalinda Peterson CRNP [address] [place] [address] 08/03/2024 9:25 AM EDT Office Visit Urogynecology [facility] [address] [place] [address] Hiro Lyons MD [address] [place] [address] Nurse Rahel Ramesh [facility] [address] [place] [address] 08/11/2024 9:30 AM EDT Cardiac Studies Cardiac Studies, [facility] [address] [place] [phone] 03/08/2025 3:00 PM EST Office Visit Cardiology, [facility] [address] [place] [address] Valerie Ibrahim CRNP [address] [place] [address] 06/21/2025 10:15 AM EDT Office Visit Ophthalmology, [facility] [address] [address] Kenny Hector DO [address] [address] Nurse [facility] [address] [address] Health Maintenance Due Date Last Done Comments [...] this encounter Medical Devices Implanted Type Area Imcu Specialist Device Identifier Shelf Expiration Date Model / Serial / Lot Alloderm 2x4 Sheet [id number] ( 8 Units ) - [id number] - [id number] Implanted:Qty : 8 on 02/04/2015 by Marques Rodriguez MD at OR [facility] Tissue - Human N/A: Esophagus [employer] 07/19/2016 [id number] / [id number] / [id number] Stent Eso Gw [id number] - [id number] Implanted:Qty : 1 on 02/05/2015 by Marques Rodriguez MD at OR [facility] N/A: Esophagus [employer] 05/19/2017 [id number] / / [id number] documented as of this encounter Advance Directives Documents on File Type Date Recorded Patient Outside Energy Sales Representatives Expl anation Power of Outside Sales Manager 01/22/2005 POWER OF A TTORNEY DURABLE POWER OF MEDICAL CASH POSTER * Full Code (Latest Code Status on [...] Shayla Spouse Health Care Sneha r of Outside Sales Manager Care Teams Naphthalene Still Operator Relationship Specialty Start Date End Date Rosalinda Peterson CRNP [address] [address] PCP - General Nurse Practitioner 04/05/24 documented as of this encounter
--- OUTSIDE RECORDS SUMMARY | 2024-08-01 14:18 | External Medical Summary ---
Author Name Unknown Address Unknown Organization [facility] [address] [facility] [address] Laboratory Report Ordering Provider Test Date Status LOIS MOSQUEDA 06/29/2024 16:05:00 Final Observation Date Value Abnormality Reference (Units ) Status Color of Urine by Auto 06/29/2024 16:05:00 Yellow Light Yellow, Yellow Final Clarity, Urine 06/29/2024 16:05:00 Clear Clear Final Glucose [Mass/volume] in Urine by Automated test strip 06/29/2024 16:05:00 Negative Negative (mg/dL) Final Bilirubin.total [Presence] in Urine by Automated test strip 06/29/2024 16:05:00 Negative Negative Final Ketones [Mass/volume] in Urine by Automated test strip 06/29/2024 16:05:00 Negative Negative (mg/dL) Final Specific gravity, Urine 06/29/2024 16:05:00 <=1.005 1.003-1.030 Final Hemoglobin [Presence] in Urine by Automated test strip 06/29/2024 16:05:00 Trace-intact Abnormal Negative Final pH, Urine 06/29/2024 16:05:00 6.0 5.0, 5.5, 6.0, 6.5, 7.0, 7.5 (units) Final Protein [Mass/volume] in Urine by Automated test strip 06/29/2024 16:05:00 Negative Negative (mg/dL) Final Urobilinogen, Urine 06/29/2024 16:05:00 0.2 0.2, 1.0 (mg/dL) Final Nitrite [Presence] in Urine by Automated test strip 06/29/2024 16:05:00 Negative Negative Final Leukocyte esterase [Presence] in Urine by Automated test strip 06/29/2024 16:05:00 Negative Negative Final Performing Location [facility] [place] [id number] - [address] [place] [address]
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
--- OUTSIDE RECORDS SUMMARY | 2024-08-01 14:18 | External Medical Summary | Summary of Care ---
Author Name Unknown Organization [facility] Address [address] [place] [address] Phone [phone] Care Team Providers Care Cook Chill Technician Name Role Phone Rosalinda Peterson Charu BENJY Primary Care Provider Reason for Visit * Reason Onset Date Comments Test Results Imaging Study 06/13/2024 Encounter Details Date Type Department Care Team (Late st Contact Info) Description 06/13/2024 Telephone Gastroenterology, [facility] [address] [place] [address] Aster Dawson CRNP [address] [place] [address] Test Results Imaging Study Allergies Active Allergy [...] Fluocinolone Acetonide Scalp 0.01 % External Oil ([place]-Smoothe/FS Scalp) Apply to external ears as needed [...] Advanced directives, counseling/discussion 03/10 Overview (07/20/2008): PROJECT: #[id number], NETWORK RELATIONS CONSULTANT: Angelito Chen MD SUMMARY: Patients with CHD are randomized to darapladib (Lp-PLA2 inhibitor) or placebo in addition to standard of care medications to evaluate incidence of major coronary events. CONTACTS: During normal business hours, contact Clincal Research Coordinator at appropriate clinic location, after hours on-call Clinical Research Coordinator via the [facility] hospital tucking machine operator ([phone]). The study sponsor can be reached at: Prolapse of vaginal vault after hysterectomy Rectocele 09/13/2020 History of cigarette smoking 09/13/2020 Overview (09/13/2020): 30 pack year Diverticulosis of large intestine without hemorr lucy 08/02/2019 Cystocele, lateral 06/28/2018 NOEL (generalized anxiety disorder) 05/23/2018 ASCVD (arteriosclerotic cardiovascular disease) 03/09/2018 Cardiac pacemaker in situ 11/12/2017 Sick sinus syndrome 11/11/2017 Old IN (myocardial infarction) 11/11/2017 Peripheral vascular disease 10/01/2017 [...] 03/04/2021 04/13/2024 Coronary artery disease invo lving [place] coronary artery of [place] heart with unstable angina pectoris 07/18/2020 04/06/2023 Gastroesophageal reflux dise ase without esophagitis 06/11/2020 03/31/2022 Pain, dental 12/04/2017 06/24/2018 Visual loss 03/29/2017 10/01/2017 Headache, unspecified headache type 03/29/2017 11/11/2017 Neck discomfort 03/29/2017 10/01/2017 Abdominal pain, right upper quadrant 09/04/2016 12/07/2016 Chest pain, non-cardiac 08/09/2016 0407/2018 Overview (08/10/2016): [facility] 07/2016 with no changes - old PURCHASE ANALYST Diagonal Abnormal nuclear stress test 07/27/2016 11/11/2017 Overview (08/10/2016): anterolat ischemia on nuclear 07/2016, totally expected as she has chronic total diagnonal occlusion Moderate persistent asthma w ithout complication 04/30/2016 05/19/2022 Viral URI with cough 03/01/2016 017 Coronary artery disease invo lving [place] coronary artery of [place] heart with unstable angina pectoris 10/03/2015 06/11/2020 Overview (08/10/2016): Inspector Conveyor Line: Amador Barry PA-C [facility] Hx Ant wall [place] at the age of 45 s/p PTCA of the LAD at [place] S/p Cath 2010, with PURCHASE ANALYST of the diag 07/2016 [facility]: moderate ischemia in a large portion of the anterior lateral and lateral myocardium.EF 76% 07/2016 [facility] for atyp back pain and abnl nuclear stress: Patent LAD and RCA, known PURCHASE ANALYST of the diagonal. Anxiety 05/21/2015 06/24/2018 Paraesophageal hernia 02/04/20152019 Cholelithiasis 11/05/2011 11/11/2017 Old myocardial infarct 10/11/200806/24 Overview (10/11/2008): Modified by Acute [place] Protocol #5. Follow-up of anterolateral m yocardial [...] 06/09/2002 10/11/2008 Overview (10/11/2008): Modified by Acute [place] Protocol #5. CORONARY ATHEROSCLEROSIS VESSEL NOS 02/15/2002 10/03/2015 Dyslipidemia, goal to be determined 02/15/2002 02/13/2009 Overview (02/13/2009): Per Lipid Taxonomy DIVERTICULITIS OF COLON 07/21 PURE HYPERCHOLESTEROLEM 02/19 Overview (02/28/2009): Per Lipid Taxonomy. Acute IN, anterior wall 09/20 Overview (10/11/2008): Modified by Acute [place] Protocol #5. 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, including hip 11/11/2017 documented as of this encounter (statuses as of 06/26/2024) Immunizations Name Administration Dates Next Due COVID-19 mRNA, LNP-s, No Pre serve, 2-Dose Series ([employer]) 02/11/2021,06/10/2020,05/15/2020 COVID-19, MRNA-LNP, PF, 30 M CG/0.3 mL, 12 YRS AND ABOVE, IM ([facility] 12/10/2023,06/17/2023 Covid-19, Mrna, Lnp-s, Pf, B ivalent, 30 Mcg, IM, 12 yrs and above ([employer]) 12/04/2021 H1N1 2008 Influenza, IM 05/29/2009 Pneumococcal [...] 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 She can be reached at [phone]. Thank you! * Telephone Encounter - Ca [...] 07/05/2024 1:00 PM EDT Office Visit Gastroenterology, [facility] [address] [phone] Aster Dawson CRNP [address] [place] [address] 07/14/2024 8:40 AM EDT Office Visit Family Practice [facility] [address] [address] Rosalinda Peterson CRNP [address] [place] [address] 08/03/2024 9:25 AM EDT Office Visit Urogynecology [facility] [address] [place] [address] Hiro Lyons MD [address] [place] [address] Nurse Rahel Ramesh [facility] [address] [place] [address] 08/11/2024 9:30 AM EDT Cardiac Studies Cardiac Studies, [facility] [address] [place] [phone] 03/08/2025 3:00 PM EST Office Visit Cardiology, [facility] [address] [place] [address] Valerie Ibrahim CRNP [address] [place] [address] 06/21/2025 10:15 AM EDT Office Visit Ophthalmology, [facility] [address] [address] Kenny Hector DO [address] [address] Nurse [facility] [address] [address] Health Maintenance Due Date Last Done Comments [...] this encounter Medical Devices Implanted Type Area Water Resource Specialist Device Identifier Shelf Expiration Date Model / Serial / Lot Alloderm 2x4 Sheet [id number] ( 8 Units ) - [id number] - [id number] Implanted:Qty : 8 on 02/04/2015 by Marques Rodriguez MD at [place] [facility] Tissue - Human N/A: Esophagus LIFE CELL EMMANUEL 07/19/2016 [id number] / [id number] Stent Eso Gw [id number] - [id number] Implanted:Qty : 1 on 02/05/2015 by Marques Rodriguez MD at [place] [facility] N/A: Esophagus [employer] 05/19/2017 [id number] / / [id number] documented as of this encounter Advance Directives Documents on File Type Date Recorded Patient Clay Carman Expl anation Power of Brass And Wind Instrument Repairer 01/22/2005 POWER OF A TTORNEY DURABLE POWER OF LIQUOR COMMISSIONER * Full Code (Latest Code Status on [...] Shayla Spouse Health Care Sneha r of Brass And Wind Instrument Repairer Care Teams Cook Chill Technician Relationship Specialty Start Date End Date Rosalinda Peterson CRNP [address] [address] PCP - General Nurse Practitioner 04/05/24 documented as of this encounter
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
--- OUTSIDE RECORDS SUMMARY | 2024-08-01 14:18 | External Medical Summary | Summary of Care ---
Author Name Unknown Organization [facility] Address [address] [place] [address] Phone [phone] Care Team Providers Care First Press Operator Name Role Phone Rosalinda Peterson Charu BENJY Primary Care Provider Reason for Visit * Reason Onset Date Comments Test Results Imaging Study 06/13/2024 Encounter Details Date Type Department Care Team (Late st Contact Info) Description 06/13/2024 Telephone Gastroenterology, [facility] [address] [place] [address] Aster Dawson CRNP [address] [place] [address] Test Results Imaging Study Allergies Active Allergy [...] Fluocinolone Acetonide Scalp 0.01 % External Oil ([place]ettib[place]-Smoothe/FS Scalp) Apply to external ears as needed [...] Advanced directives, counseling/discussion 03/10 Overview (07/20/2008): PROJECT: #[id number], EMOTIONALLY IMPAIRED TEACHER: Angelito Chen MD SUMMARY: Patients with CHD are randomized to darapladib (Lp-PLA2 inhibitor) or placebo in addition to standard of care medications to evaluate incidence of major coronary events. CONTACTS: During normal business hours, contact Clincal Research Coordinator at appropriate clinic location, after hours on-call Clinical Research Coordinator via the [facility] hospital four corner former machine operator ([phone]). The study sponsor can be reached at: Prolapse of vaginal vault after hysterectomy Rectocele 09/13/2020 History of cigarette smoking 09/13/2020 Overview (09/13/2020): 30 pack year Diverticulosis of large intestine without hemorr lucy 08/02/2019 Cystocele, lateral 06/28/2018 NOEL (generalized anxiety disorder) 05/23/2018 ASCVD (arteriosclerotic cardiovascular disease) 03/09/2018 Cardiac pacemaker in situ 11/12/2017 Sick sinus syndrome 11/11/2017 Old [place] (myocardial infarction) 11/11/2017 Peripheral vascular disease 10/01/2017 [...] 03/04/2021 04/13/2024 Coronary artery disease invo lving tangirnaq coronary artery of tangirnaq heart with unstable angina pectoris 07/18/2020 04/06/2023 Gastroesophageal reflux dise ase without esophagitis 06/11/2020 03/31/2022 Pain, dental 12/04/2017 06/24/2018 Visual loss 03/29/2017 10/01/2017 Headache, unspecified headache type 03/29/2017 11/11/2017 Neck discomfort 03/29/2017 10/01/2017 Abdominal pain, right upper quadrant 09/04/2016 12/07/2016 Chest pain, non-cardiac 08/09/2016 0407/2018 Overview (08/10/2016): [facility] 07/2016 with no changes - old 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 Diagonal Abnormal nuclear stress test 07/27/2016 11/11/2017 Overview (08/10/2016): anterolat ischemia on nuclear 07/2016, totally expected as she has chronic total diagnonal occlusion Moderate persistent asthma w ithout complication 04/30/2016 05/19/2022 Viral URI with cough 03/01/2016 017 Coronary artery disease invo lving tangirnaq coronary artery of tangirnaq heart with unstable angina pectoris 10/03/2015 06/11/2020 Overview (08/10/2016): Resaw Feeder: Amador Barry PA-C [facility] Hx Ant wall [place] at the age of 45 s/p PTCA of the LAD at [place] S/p Cath 2010, with HARDSCAPE FOREMAN of the diag 07/2016 [facility]: moderate ischemia in a large portion of the anterior lateral and lateral myocardium.EF 76% 07/2016 Cath [facility] for atyp back pain and abnl nuclear stress: Patent LAD and RCA, known HARDSCAPE FOREMAN of the diagonal. Anxiety 05/21/2015 06/24/2018 Paraesophageal hernia 02/04/20152019 Cholelithiasis 11/05/2011 11/11/2017 Old myocardial infarct 10/11/200806/24 Overview (10/11/2008): Modified by Acute [place] Protocol #5. Follow-up of anterolateral m yocardial [...] 06/09/2002 10/11/2008 Overview (10/11/2008): Modified by Acute [place] Protocol #5. CORONARY ATHEROSCLEROSIS VESSEL NOS 02/15/2002 10/03/2015 Dyslipidemia, goal to be determined 02/15/2002 02/13/2009 Overview (02/13/2009): Per Lipid Taxonomy DIVERTICULITIS OF COLON 07/21 PURE HYPERCHOLESTEROLEM 02/19 Overview (02/28/2009): Per Lipid Taxonomy. Acute [place], anterior wall 09/20 Overview (10/11/2008): Modified by Acute [place] Protocol #5. 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, including hip 11/11/2017 documented as of this encounter (statuses as of 06/26/2024) Immunizations Name Administration Dates Next Due COVID-19 mRNA, LNP-s, No Pre serve, 2-Dose Series ([employer]) 02/11/2021,06/10/2020,05/15/2020 COVID-19, MRNA-LNP, PF, 30 M CG/0.3 mL, 12 YRS AND ABOVE, IM ([facility] 12/10/2023,06/17/2023 Covid-19, Mrna, Lnp-s, Pf, B ivalent, 30 Mcg, IM, 12 yrs and above ([employer]) 12/04/2021 H1N1 2008 Influenza, IM 05/29/2009 Pneumococcal [...] No 08/11/2023 Does the household have a formerly oakwood hospitalr source of income? 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 She can be reached at [phone]. Thank you! * Telephone Encounter - Ca [...] 07/05/2024 1:00 PM EDT Office Visit Gastroenterology, [facility] [address] [phone] Aster Dawson CRNP [address] [place] [address] 07/14/2024 8:40 AM EDT Office Visit Family Practice [facility] [address] [place] [address] Rosalinda Peterson CRNP [address] [place] [address] 08/03/2024 9:25 AM EDT Office Visit Urogynecology [facility] [address] [place] [address] Hiro Lyons MD [address] [place] [address] Nurse Rahel Ramesh [facility] [address] [place] [address] 08/11/2024 9:30 AM EDT Cardiac Studies Cardiac Studies, [facility] [address] [place] [phone] 03/08/2025 3:00 PM EST Office Visit Cardiology, [facility] [address] [place] [address] Valerie Ibrahim CRNP [address] [place] [address] 06/21/2025 10:15 AM EDT Office Visit Ophthalmology, [facility] [address] [address] Kenny Hector DO [address] [address] Nurse [facility] Ophthal[facility] [address] [address] Health Maintenance Due Date Last Done Comments [...] this encounter Medical Devices Implanted Type Area Numerical Control Programmer Device Identifier Shelf Expiration Date Model / Serial / Lot Alloderm 2x4 Sheet [id number] ( 8 Units ) - [id number] - [id number] Implanted:Qty : 8 on 02/04/2015 by Marques Rodriguez MD at [facility] Tissue - Human N/A: Esophagus LIFE CELL EMMANUEL 07/19/2016 [id number] / [id number] Stent Eso Gw [id number] - [id number] Implanted:Qty : 1 on 02/05/2015 by Marques Rodriguez MD at OR [facility] N/A: Esophagus [employer] INC 05/19/2017 [id number] / / [id number] documented as of this encounter Advance Directives Documents on File Type Date Recorded Patient Skill Training Program Coordinator Expl anation Power of 5Th Grade Teacher 01/22/2005 POWER OF A TTORNEY DURABLE POWER OF FLOATLIGHT POWDER MIXER * Full Code (Latest Code Status on [...] Shayla Spouse Health Care Sneha r of 5Th Grade Teacher Care Teams First Press Operator Relationship Specialty Start Date End Date Rosalinda Peterson CRNP [address] [address] PCP - General Nurse Practitioner 04/05/24 documented as of this encounter
--- OUTSIDE RECORDS SUMMARY | 2024-08-01 14:19 | External Medical Summary | Summary of Care ---
Author Name Unknown Organization [facility] Address [address] [place] [address] Phone [phone] Care Team Providers Care Sheet Rock Installation Helper Name Role Phone Rosalinda Peterson Chrau BENJY Primary Care Provider Reason for Visit * Reason Onset Date Comments Test Results Imaging Study 06/13/2024 Encounter Details Date Type Department Care Team (Late st Contact Info) Description 06/13/2024 Telephone Gastroenterology, [facility] [address] [place] [address] Aster Dawson CRNP [address] [address] Test Results Imaging Study Allergies Active Allergy Reactions Criticality Noted Date Comments Adhesive Tape 05/27/2021 Other reaction(s): Rash Chlorhexidine Low 12/30/2020 Other reaction(s): rash, itching Escitalopram Oxalate Itching,Other (Please comment) 09/07/2011 Jittery Ibuprofen 05/19/2022 Swelling, redness, hives Latex 03/18/2011 Rash Paroxetine Hcl 10/24/2015 Foggy/visual impairment documented as of this encounter (statuses as of 06/19/2024) Medications TYLENOL ARTHRITIS PAIN 650 MG PO [...] a rescue kit. 5 Tablet 4 Active tiZANidine HCl 2 MG Oral Tablet (Zanaflex) Take 1 table by mouth 3 times a day as needed for muscle spasms 30 Tablet 1 4 Active Estradiol 0.5 MG Oral Tablet (Estrace)Indicatio ns:Need for prophylactic hormone replacement therapy (postmenopausal) TAKE ONE TABLET BY MOUTH EVERY DAY ON SUNDAYS, TUESDAYS, THURSDAYS AND SATURDAYS 90 Tablet 2 04/06/2024 1:35 PM EST 4 Active busPIRone HCl 5 MG Oral Tablet (Buspar)Indication s:Anxiety TAKE ONE TABLET BY MOUTH TWICE A DAY 180 Tablet 3 05/29/2024 4:06 PM EDT 4 025 Active Bismuth Subsalicylate 262 MG/15ML Oral Suspension (Pepto-Bismol) Take 30 mL by mouth every 4 hours as needed. Active Fluocinolone Acetonide Scalp 0.01 % External Oil ([place]-Smoothe/FS Scalp) Apply to external ears as needed [...] 90 Tablet 3 04/14/2024 4:17 PM EST 5 Active LORazepam 0.5 MG Oral Tablet (Ativan)Indication s:NOEL (generalized anxiety disorder) Take 1 Tablet by mouth daily as needed for Anxiety. 90 Tablet 5 Active Furosemide 20 MG Oral Tablet (Lasix)Indications :Lower extremity edema Take one-half Tablet by mouth in the morning. 100 Tablet 3 06/15/2024 10:06 AM EDT 5 Active Potassium Chloride ER 10 MEQ Oral Capsule Extended Release Take 1 Capsule by mouth in the morning. 100 Capsule 3 04/20/2024 2:15 PM EST 5 Active cycloSPORINE 0.05 % Ophthalmic Emulsion (Restasis) Instill 1 Drop into both eyes in the morning and 1 Drop before bedtime. 60 Each 11 04/28/2024 5:47 PM EST 5 026 Active Estradiol 0.1 MG/GM Vaginal Cream (Estrace) Apply pea sized amount (0.5 gm) vaginally twice a week at bedtime 42.5 g 3 05/04/2024 2:18 PM EST 5 Active Dicyclomine HCl 10 MG Oral Capsule (Bentyl)Indication s:Irritable bowel syndrome with diarrhea Take 1 Capsule by mouth 2 times a day as needed for abdominal cramping or diarrhea 180 Capsule 05/26/2024 10:29 AM EST 5 Active documented as of this encounter (statuses as of 06/19/2024) Active Problems Problem Noted Date Diagnosed Date Chronic diastolic congestive heart failure 04/14 Heart failure, diastolic, with acute decompensat ion 04/14/2024 Leg mass, right 04/13/2024 Leg cramping 07/12/2023 Leg swelling 08/26/2022 Advanced directives, counseling/discussion 03/10 Overview (07/20/2008): PROJECT: #[id number], CIVILIAN JAIL OFFICER: Angelito Chen MD SUMMARY: Patients with CHD are randomized to darapladib (Lp-PLA2 inhibitor) or placebo in addition to standard of care medications to evaluate incidence of major coronary events. CONTACTS: During normal business hours, contact Clincal Research Coordinator at appropriate clinic location, after hours on-call Clinical Research Coordinator via [place] [facility] [place] save all operator ([phone]). The study sponsor can be reached at: Prolapse of vaginal vault after hysterectomy Rectocele 09/13/2020 History of cigarette smoking 09/13/2020 Overview (09/13/2020): 30 pack year Diverticulosis of large intestine without hemorr lucy 08/02/2019 Cystocele, lateral 06/28/2018 NOEL (generalized anxiety disorder) 05/23/2018 ASCVD (arteriosclerotic cardiovascular disease) 03/09/2018 Cardiac pacemaker in situ 11/12/2017 Sick sinus syndrome 11/11/2017 Old SC (myocardial infarction) 11/11/2017 Peripheral vascular disease 10/01/2017 HTN, goal below 130/80 10/03/2015 Anemia due to vitamin B12 deficiency 08/26/2015 Vitamin D deficiency 08/26/2015 DDD (degenerative disc disease), cervical 2013 Gastroesophageal reflux disease with esophagitis 12/21/2011 IBS (irritable bowel syndrome) 06/11/2011 Dyslipidemia 02/28/2009 Overview (02/28/2009): Per Lipid Taxonomy. Generalized osteoarthritis Rosacea documented as of this encounter (statuses as of 06/19/2024) Resolved Problems Problem Noted Date Diagnosed Date Resolved Date Depression, unspecified 12/23/2022 1206/2022 Migraine with aura, not intr actable, without status migrainosus 07/07/2022 07/05/2023 Hematuria, gross 03/04/2021 04/13/2024 History of UTI 03/04/2021 04/13/2024 Coronary artery disease invo lving augustine coronary artery of augustine heart with unstable angina pectoris 07/18/2020 04/06/2023 Gastroesophageal reflux dise ase without esophagitis 06/11/2020 03/31/2022 Pain, dental 12/04/2017 06/24/2018 Visual loss 03/29/2017 10/01/2017 Headache, unspecified headache type 03/29/2017 11/11/2017 Neck discomfort 03/29/2017 10/01/2017 Abdominal pain, right upper quadrant 09/04/2016 12/07/2016 Chest pain, non-cardiac 08/09/2016 040 07/2018 Overview (08/10/2016): Cath [facility] 07/2016 with no changes - old TOP STITCHER Diagonal Abnormal nuclear stress test 07/27/2016 11/11/2017 Overview (08/10/2016): anterolat ischemia on nuclear 07/2016, totally expected as she has chronic total diagnonal occlusion Moderate persistent asthma w ithout complication 04/30/2016 05/19/2022 Viral URI with cough 03/01/2016 017 Coronary artery disease invo lving augustine coronary artery of augustine heart with unstable angina pectoris 10/03/2015 06/11/2020 Overview (08/10/2016): Quality Control Systems Manager: Amador Barry PA-C Pito Gambino Ramesh Hx Ant wall SC at the age of 45 s/p PTCA of the LAD at [place] S/p Cath 2010, with TOP STITCHER of the diag 07/2016 [facility]: moderate ischemia in a large portion of the anterior lateral and lateral myocardium.EF 76% 07/2016 [place] [facility] [place] pain and abnl nuclear stress: Patent LAD and RCA, known TOP STITCHER of the diagonal. Anxiety 05/21/2015 06/24/2018 Paraesophageal hernia 02/04/20152019 Cholelithiasis 11/05/2011 11/11/2017 Old myocardial infarct 10/11/200806/24 Overview (10/11/2008): Modified by Acute SC Protocol #5. Follow-up of anterolateral m yocardial [...] 06/09/2002 10/11/2008 Overview (10/11/2008): Modified by Acute SC Protocol #5. CORONARY ATHEROSCLEROSIS VESSEL NOS 02/15/2002 10/03/2015 Dyslipidemia, goal to be determined 02/15/2002 02/13/2009 Overview (02/13/2009): Per Lipid Taxonomy DIVERTICULITIS OF COLON 07/21 PURE HYPERCHOLESTEROLEM 02/19 Overview (02/28/2009): Per Lipid Taxonomy. Acute SC, anterior wall 09/20 Overview (10/11/2008): Modified by Acute SC Protocol #5. 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, including hip 11/11/2017 documented as of this encounter (statuses as of 06/19/2024) Immunizations Name Administration Dates Next Due COVID-19 mRNA, LNP-s, No Pre serve, 2-Dose Series (MitraSpan) 02/11/2021,06/10/2020,05/15/2020 COVID-19, MRNA-LNP, PF, 30 M CG/0.3 mL, 12 YRS AND ABOVE, IM (Qik-ComirnatKionix) 12/10/2023,06/17/2023 Covid-19, Mrna, Lnp-s, Pf, B ivalent, [...] 10 and older)(Boostrix) 12/07/2022, Varicella Zoster Vaccine (Adult) 06/13/2008 Zoster Vaccine Recombinant (Shingrix) 09/13/2018 ,05/10/2018 [...] ages 0-17 years) Not on file 08/11/2023 Are you homeless or worried that [...] 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 Not on file Not on file [...] encounter Miscellaneous Notes * Telephone Encounter - Ca Thorne LPN [...] Care Team (Late st Contact Info) Description 06/20/2024 9:45 AM EDT Imaging Radiology [facility] [address] [place] [phone] 06/20/2024 11:00 AM EDT Office Visit Cardiology, [facility] [address] [place] [phone] Valerie Ibrahim CRNP [address] [place] [address] 06/21/2024 3:30 PM EDT Office Visit Ophthalmology, [facility] [address] [place] [address] Kenny Hector DO [address] [place] [address] 07/05/2024 1:00 PM EDT Office Visit Gastroenterology, [facility] [address] [place] [phone] Aster Dawson CRNP [address] [place] [address] 07/14/2024 8:40 AM EDT Office Visit Family Practice [facility] [address] [place] [address] Rosalinda Peterson CRNP [address] [place] [address] 08/03/2024 9:25 AM EDT Office Visit Urogynecology [facility] [address] [place] [address] Hiro Lyons MD [address] [place] [address] Nurse Rahel Ramesh [facility] [address] [place] [address] Health Maintenance Due Date Last Done Comments DXA Scan 01/23/2023 01/24/2020, 01/21, 12/27/2012, Additional history exists COVID-19 Vaccine (7 - Pfizer risk 2023- season) 2024 12/10/2023, 06/17/2023, 12/04/2021, Additional history exists Adult Wellness Visit 09/26/2024 09/27/2023, 09/01/2022, 11/20/2020 Depression Screening 09/26/2024 09/27/2023, 08/11/19 24 GFR 03/17/2025 03/17/2024, 11/21, 10/12/2023, Additional history exists Albumin/Creatinine Ratio 07/13/2026 07/14/2023 [...] this encounter Medical Devices Implanted Type Area Airplane Electrical Repairer Device Identifier Shelf Expiration Date Model / Serial / Lot Alloderm 2x4 Sheet [id number] ( 8 Units ) - [id number] - [id number] Implanted:Qty : 8 on 02/04/2015 by Marques Rodriguez [place] [facility] [place] - Human N/A: Esophagus LIFE [employer]LL EMMANUEL 07/19/2016 [id number] / [id number] / [id number] Stent Eso Gw [id number] - [id number] Implanted:Qty : 1 on 02/05/2015 by Marques Rodriguez MD [place] [facility] N/A: Esophagus [employer] 05/19/2017 [id number] / / [id number] documented as of this encounter Advance Directives Documents on File Type Date Recorded Patient Superintendent Stevedoring Expl anation Power of Tourist Agent 01/22/2005 POWER OF A TTORNEY DURABLE POWER OF BUSINESS ANALYTICS ANALYST * Full Code (Latest Code Status on [...] Saavedrabailey Spouse Health Care Sneha r of Tourist Agent Care Teams Sheet Rock Installation Helper Relationship Specialty Start Date End Date Rosalinda Peterson CRNP [address] [place] [address] PCP - General Nurse Practitioner 04/05/24 documented as of this encounter
--- OUTSIDE RECORDS SUMMARY | 2024-08-01 14:19 | External Medical Summary | Summary of Care ---
Author Name Unknown Organization [facility] Address [address] [place] [address] Phone [phone] Care Team Providers Care Scale Expert Name Role Phone Rosalinda Peterson Charu BENJY Primary Care Provider Reason for Visit * Reason Onset Date Comments Test Results Imaging Study 06/13/2024 Encounter Details Date Type Department Care Team (Late st Contact Info) Description 06/13/2024 Telephone Gastroenterology, [facility] [address] [place] [address] Aster Dawson CRNP [address] [place] [address] Test Results Imaging Study Allergies Active Allergy [...] Fluocinolone Acetonide Scalp 0.01 % External Oil ([place]-Smoothe/FS Scalp) Apply to external ears as needed [...] Advanced directives, counseling/discussion 03/10 Overview (07/20/2008): PROJECT: #[id number], BINGO CLERK: Angelito Chen MD SUMMARY: Patients with CHD are randomized to darapladib (Lp-PLA2 inhibitor) or placebo in addition to standard of care medications to evaluate incidence of major coronary events. CONTACTS: During normal business hours, contact Clincal Research Coordinator at appropriate clinic location, after hours on-call Clinical Research Coordinator via the [facility] hospital planishing hammer operator ([phone]). The study sponsor can be reached at: Prolapse of vaginal vault after hysterectomy Rectocele 09/13/2020 History of cigarette smoking 09/13/2020 Overview (09/13/2020): 30 pack year Diverticulosis of large intestine without hemorr lucy 08/02/2019 Cystocele, lateral 06/28/2018 NOEL (generalized anxiety disorder) 05/23/2018 ASCVD (arteriosclerotic cardiovascular disease) 03/09/2018 Cardiac pacemaker in situ 11/12/2017 Sick sinus syndrome 11/11/2017 Old MD (myocardial infarction) 11/11/2017 Peripheral vascular disease 10/01/2017 [...] 03/04/2021 04/13/2024 Coronary artery disease invo lving [place] tribe coronary artery of [place] heart with unstable angina pectoris 07/18/2020 04/06/2023 Gastroesophageal reflux dise ase without esophagitis 06/11/2020 03/31/2022 Pain, dental 12/04/2017 06/24/2018 Visual loss 03/29/2017 10/01/2017 Headache, unspecified headache type 03/29/2017 11/11/2017 Neck discomfort 03/29/2017 10/01/2017 Abdominal pain, right upper quadrant 09/04/2016 12/07/2016 Chest pain, non-cardiac 08/09/2016 0407/2018 Overview (08/10/2016): Cath [facility] 07/2016 with no changes - old HEALTH EDUCATION COORDINATOR Diagonal Abnormal nuclear stress test 07/27/2016 11/11/2017 Overview (08/10/2016): anterolat ischemia on nuclear 07/2016, totally expected as she has chronic total diagnonal occlusion Moderate persistent asthma w ithout complication 04/30/2016 05/19/2022 Viral URI with cough 03/01/2016 017 Coronary artery disease invo lving [place] tribe coronary artery of [place] tribe heart with unstable angina pectoris 10/03/2015 06/11/2020 Overview (08/10/2016): Ship Loader: Amador Barry PA-C [facility] Hx Ant wall MD at the age of 45 s/p PTCA of the LAD at [place] S/p Cath 2010, with HEALTH EDUCATION COORDINATOR of the diag 07/2016 [facility]: moderate ischemia in a large portion of the anterior lateral and lateral myocardium.EF 76% 07/2016 Cath [facility] for atyp back pain and abnl nuclear stress: Patent LAD and RCA, known HEALTH EDUCATION COORDINATOR of the diagonal. Anxiety 05/21/2015 06/24/2018 Paraesophageal hernia 02/04/20152019 Cholelithiasis 11/05/2011 11/11/2017 Old myocardial infarct 10/11/200806/24 Overview (10/11/2008): Modified by Acute MD Protocol #5. Follow-up of anterolateral m yocardial [...] 06/09/2002 10/11/2008 Overview (10/11/2008): Modified by Acute MD Protocol #5. CORONARY ATHEROSCLEROSIS VESSEL NOS 02/15/2002 10/03/2015 Dyslipidemia, goal to be determined 02/15/2002 02/13/2009 Overview (02/13/2009): Per Lipid Taxonomy DIVERTICULITIS OF COLON 07/21 PURE HYPERCHOLESTEROLEM 02/19 Overview (02/28/2009): Per Lipid Taxonomy. Acute MD, anterior wall 09/20 Overview (10/11/2008): Modified by Acute MD Protocol #5. 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, including hip 11/11/2017 documented as of this encounter (statuses as of 06/26/2024) Immunizations Name Administration Dates Next Due COVID-19 mRNA, LNP-s, No Pre serve, 2-Dose Series (UsherBuddy) 02/11/2021,06/10/2020,05/15/2020 COVID-19, MRNA-LNP, PF, 30 M CG/0.3 mL, 12 YRS AND ABOVE, IM ([facility]) 12/10/2023,06/17/2023 Covid-19, Mrna, Lnp-s, Pf, B ivalent, 30 Mcg, IM, 12 yrs and above (UsherBuddy) 12/04/2021 H1N1 2008 Influenza, IM 05/29/2009 Pneumococcal [...] No 08/11/2023 Does the household have a [facility] hospitalr source of income? 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 She can be reached at [phone]. Thank you! * Telephone Encounter - Ca [...] 07/05/2024 1:00 PM EDT Office Visit Gastroenterology, [facility] [address] [place] [address] Aster Dawson CRNP [address] [place] [address] 07/14/2024 8:40 AM EDT Office Visit Family Practice [facility] [address] [place] [address] Rosalinda Peterson CRNP [address] [place] [address] 08/03/2024 9:25 AM EDT Office Visit Urogynecology [facility] [address] [place] [address] Hiro Lyons MD [address] [place] [address] Nurse Rahel Ramesh [facility] [address] [place] [address] 08/11/2024 9:30 AM EDT Cardiac Studies Cardiac Studies, [facility] [address] [place] [address] 03/08/2025 3:00 PM EST Office Visit Cardiology, [facility] [address] [place] [phone] Valerie Ibrahim CRNP [address] [place] [address] 06/21/2025 10:15 AM EDT Office Visit Ophthalmology, [facility] [address] [address] Kenny Hector DO [address] [place] [address] Nurse [facility] [address] [place] [address] Health Maintenance Due Date Last Done Comments [...] this encounter Medical Devices Implanted Type Area Metal Flow Coordinator Device Identifier Shelf Expiration Date Model / Serial / Lot Alloderm 2x4 Sheet [id number] ( 8 Units ) - [id number] - [id number] Implanted:Qty : 8 on 02/04/2015 by Marques Rodriguez MD at [place] [facility] Tissue - Human N/A: Esophagus [employer] EMMANUEL 07/19/2016 [id number] / [id number] / [id number] Stent Eso Gw [id number] - [id number] Implanted:Qty : 1 on 02/05/2015 by Marques Rodriguez MD at OR [facility] N/A: Esophagus [employer] 05/19/2017 [id number] / / [id number] documented as of this encounter Advance Directives Documents on File Type Date Recorded Patient Accountant Property Expl anation Power of Interventional Neuroradiologist 01/22/2005 POWER OF A TTORNEY DURABLE POWER OF RESERVATIONIST * Full Code (Latest Code Status on [...] Mcguire Spouse Health Care Sneha r of Interventional Neuroradiologist Care Teams Scale Expert Relationship Specialty Start Date End Date Rosalinda Peterson CRNP [address] [place] [address] PCP - General Nurse Practitioner 04/05/24 documented as of this encounter
--- OUTSIDE RECORDS SUMMARY | 2024-08-01 14:19 | External Medical Summary | Summary of Care ---
Author Name Unknown Organization [facility] Address [address] [place] [address] Phone [phone] Care Team Providers Care Supervisor Customer Records Division Name Role Phone Rosalinda Petersonlle BENJY Primary Care Provider Reason for Visit * Reason Comments Outpatient Testing Encounter Details Date Type Department Care Team (Late st Contact Info) Description 06/20/2024 9:00 AM EDT Laboratory Laboratory, [facility] [address] [place] [phone] [facility] [address] [place] [address] Leg mass, right; Chronic diastolic congestive heart failure (HCC); Blurred vision, bilateral; Right lower quadrant abdominal pain Allergies Active Allergy Reactions Criticality Noted Date Comments Adhesive Tape 05/27/2021 Other reaction(s): Rash Chlorhexidine Low 12/30/2020 Other reaction(s): rash, itching Escitalopram Oxalate Itching,Other (Please comment) 09/07/2011 Jittery Ibuprofen 05/19/2022 Swelling, redness, hives Latex 03/18/2011 Rash Paroxetine Hcl 10/24/2015 Foggy/visual impairment documented as of this encounter (statuses as of 06/20/2024) Medications TYLENOL ARTHRITIS PAIN 650 MG PO [...] Fluocinolone Acetonide Scalp 0.01 % External Oil ([place]-Smoothe/FS Scalp) Apply to external ears as needed [...] as of this encounter (statuses as of 06/20/2024) Active Problems Problem Noted Date Diagnosed Date Chronic diastolic congestive heart failure 04/14 Heart failure, diastolic, with acute decompensat ion 04/14/2024 Leg mass, right 04/13/2024 Leg cramping 07/12/2023 Leg swelling 08/26/2022 Advanced directives, counseling/discussion 03/10 Overview (07/20/2008): PROJECT: #[id number], APPLICATION TECHNICIAN: Angelito Chen MD SUMMARY: Patients with CHD are randomized to darapladib (Lp-PLA2 inhibitor) or placebo in addition to standard of care medications to evaluate incidence of major coronary events. CONTACTS: During normal business hours, contact Clincal Research Coordinator at appropriate clinic location, after hours on-call Clinical Research Coordinator via the [facility] hospital singe machine operator ([phone]). 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 07/18/2020 04/06/2023 Gastroesophageal reflux dise ase without esophagitis 06/11/2020 03/31/2022 Pain, dental 12/04/2017 06/24/2018 Visual loss 03/29/2017 10/01/2017 Headache, unspecified headache type 03/29/2017 11/11/2017 Neck discomfort 03/29/2017 10/01/2017 Abdominal pain, right upper quadrant 09/04/2016 12/07/2016 Chest pain, non-cardiac 08/09/2016 040 07/2018 Overview (08/10/2016): Cath C 07/2016 with no changes - 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 Abnormal nuclear stress test 07/27/2016 11/11/2017 Overview (08/10/2016): anterolat ischemia on nuclear 07/2016, totally expected as she has chronic total diagnonal occlusion Moderate persistent asthma w ithout complication 04/30/2016 05/19/2022 Viral URI with cough 03/01/2016 017 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 Anxiety 05/21/2015 06/24/2018 Paraesophageal [...] as of this encounter (statuses as of 06/20/2024) Immunizations Name Administration Dates Next Due COVID-19 mRNA, LNP-s, No Pre serve, 2-Dose Series ([employer]) 02/11/2021,06/10/2020,05/15/2020 COVID-19, MRNA-LNP, PF, 30 M CG/0.3 mL, 12 YRS AND ABOVE, IM ([employer] [facility]) 12/10/2023,06/17/2023 Covid-19, Mrna, Lnp-s, Pf, B ivalent, 30 Mcg, IM, 12 yrs and above ([employer]) 12/04/2021 H1N1 2009 Influenza, IM 05/29/2009 Pneumococcal [...] Job Start Date Job End Date retired- [employer] Not on file Not on file Not [...] Team (Late st Contact Info) Description 06/20/2024 11:00 AM EDT Office Visit Cardiology, [facility] [address] [place] [phone] Valerie Ibrahim CRNP [address] [place] [id number] 06/20/2024 06/21/2024 3:30 PM EDT Office Visit OphthalmologyLiam [address] [phone] Kenny Hector DO [address] [place] [address] 07/05/2024 1:00 PM EDT Office Visit Gastroenterology, [facility] [address] [place] [phone] Aster Dawson CRNP [address] [place] [address] 07/14/2024 8:40 AM EDT Office Visit Family Practice [facility] [address] [address] Rosalinda Peterson CRNP [address] [place] [address] 08/03/2024 9:25 AM EDT Office Visit Urogynecology Ezekielvladimir Ramesh [address] [place] [address] Hiro Lyons MD [address] [place] [address] Nurse Rahel Ramesh [address] [place] [address] Pending Results Name Type Priority Associated Diagnoses Date /Time CBC WITH WBC DIFFERENTIAL AND ANEMIA REFLEX WORKUP Lab Routine Leg mass, right 06/20/2024 9:03 AM EDT MAGNESIUM Lab Routine Chronic diastolic congestive heart failure (HCC) 06/20/2024 9:03 AM EDT VITAMIN B12 Lab Routine Blurred vision, bilateral 06/20/2024 9:03 AM EDT TSH WITH FREE T4 IF INDICATED Lab Routine Blurred vision, bilateral 06/20/2024 9:03 AM EDT ANEMIA CBC Lab Routine Leg mass, right 06/20/2024 9:03 AM EDT DIFFERENTIAL, AUTOMATED Lab Routine Leg mass, right 06/20/2024 9:03 AM EDT ANEMIA REFLEX CHEMISTRY HOLD Lab Routine Leg mass, right 06/20/2024 9:03 AM EDT Health Maintenance Due Date Last Done Comments DXA Scan 01/23/2023 01/24/2020, 01/21, 12/27/2012, Additional history exists COVID-19 Vaccine (7 - Pfizer risk 2023- season) 2024 12/10/2023, 06/17/2023, 12/04/2021, Additional history exists Adult Wellness Visit 09/26/2024 09/27/2023, 09/01/2022, 11/20/2020 Depression Screening 09/26/2024 09/27/2023, 08/11/19 24 GFR 06/20/2025 06/20/2024, 1209/2023, 12/17/2023, Additional history exists Albumin/Creatinine Ratio 07/13/2026 [...] this encounter Medical Devices Implanted Type Area Director [employer] Device Identifier Shelf Expiration Date Model / Serial / Lot Alloderm 2x4 Sheet [id number] ( 8 Units ) - [id number] - [id number] Implanted:Qty : 8 on 02/04/2015 by Marques Rodriguez MD at OR [facility] Tissue - Human N/A: Esophagus [employer] 07/19/2016 [id number] / [id number] / [id number] Stent Eso Gw [id number] - [id number] Implanted:Qty : 1 on 02/05/2015 by Marques Rodriguez MD at OR [facility] N/A: Esophagus [employer] 05/19/2017 [id number] / / [id number] documented as of this encounter Procedures Procedure Name Priority Date/Time Associated Diagnosis Comments COMPREHENSIVE METABOLIC PANEL Routine 06/20/2024 9:03 AM EDT Chronic diastolic congestive heart failure (HCC) documented in this encounter Results * (ABNORMAL) COMPREHENSIVE METABOLIC PANEL (06/20/2024 9:03 AM EDT) BUN 9 6 - 20 mg/dL 06/20/2024 10:11 AM EDT LAB[facility] 57-10 CREATININE 0.9 0.5 - 1.0 mg/dL 06/20/2024 10:11 AM EDT [facility] 57-10 EGFR 67 >=60 mL/min 06/20/2024 10:11 AM EDT [facility] 57-10 Comment:eGFR is calculated b ased on the CKD-EPI 2020 equation. SODIUM 140 135 - 146 mmol/L 06/20/2024 10:11 AM EDT [facility] 57-10 POTASSIUM 5.2(H) 3.5 - 5.1 mmol/L 06/20/2024 10:11 AM EDT [facility] 57-10 CHLORIDE 103 98 - 107 mmol/L 06/20/2024 10:11 AM EDT [facility] 57-10 CO2 26 22 - 32 mmol/L 06/20/2024 10:11 AM EDT [facility] 57-10 ANION GAP 11 7 - 15 mmol/L 06/20/2024 10:11 AM EDT [facility] 57-10 GLUCOSE 99 70 - 120 mg/dL 06/20/2024 10:11 AM EDT [facility] 57-10 Albumin 4.3 3.8 - 5.0 g/dL 06/20/2024 10:11 AM EDT [facility] 57-10 AST 19 10 - 35 U/L 06/20/2024 10:11 AM EDT [facility] 57-10 Alkaline Phosphatase 146(H) 35 - 130 U/L 06/20/2024 10:11 AM EDT [facility] 57-10 Bilirubin, Total 0.7 <=1.2 mg/dL 06/20/2024 10:11 AM EDT [facility] 57-10 CALCIUM 9.7 8.4 - 10.2 mg/dL 06/20/2024 10:11 AM EDT [facility] 57-10 Protein 6.6 6.0 - 8.3 g/dL 06/20/2024 10:11 AM EDT [facility] 57-10 ALT 12 10 - 35 U/L 06/20/2024 10:11 AM EDT [facility] 57-10 Blood Venous blood specimen / Unknown Venipuncture / Unknown 06/20/2024 9:03 AM EDT 06/20/2024 9:03 AM EDT us Rosalinda Peterson MILLINER HELPER LAB BLOOD ORDERABLES F inal Result [facility] [place]-[address] [place] [address] documented in this encounter Visit Diagnoses Diagnosis Leg mass, right Chronic diastolic congestive heart failure (HCC) Chronic diastolic heart failure Blurred vision, bilateral Other specified visual disturbances Right lower quadrant abdominal pain Abdominal pain, right lower quadrant documented in this encounter Advance Directives Documents on File Type Date Recorded Patient Software Sales Representative Expl anation Power of Sewer Repairer 01/22/2005 POWER OF A TTORNEY DURABLE POWER OF SHOE SHINER * Full Code (Latest Code Status on [...] Mcguire Spouse Health Care Sneha r of Sewer Repairer Care Teams Supervisor Customer Records Division Relationship Specialty Start Date End Date Rosalinda Peterson CRNP [address] [address] PCP - General Nurse Practitioner 04/05/24 documented as of this encounter
--- OUTSIDE RECORDS SUMMARY | 2024-08-01 14:19 | External Medical Summary ---
Author Name Unknown Address Unknown Organization [id number]:[facility] [place] [address] [facility] [address] Laboratory Report Ordering Provider Test Date Status LOIS MOSQUEDA 06/20/2024 09:03:43 Final Observation Date Value Abnormality Reference (Units ) Status SYNC LEUKOCYTES IN BLOOD BY AUTOMATED COUNT 06/20/2024 09:03:43 5.12 4.00-10.80 (K/uL) Final Segs 06/20/2024 09:03:43 59.3 40.0-75.0 (%) Final Lymphs % 06/20/2024 09:03:43 30.7 18.0-42.0 (%) Final Monos 06/20/2024 09:03:43 8.2 1.0-11.0 (%) Final Eosinophils 06/20/2024 09:03:43 0.8 0.0-6.0 (%) Final Basos 06/20/2024 09:03:43 0.8 0.0-2.0 (%) Final Immature Granulocyte, Percent 06/20/2024 09:03:43 0.2 0.0-2.0 (%) Final Absolute Segs 06/20/2024 09:03:43 3.04 1.80-7.70 (K/uL) Final Lymphs, absolute 06/20/2024 09:03:43 1.57 1.00-4.80 (K/ul) Final Monos, Abs 06/20/2024 09:03:43 0.42 0.00-1.10 (K/uL) Final Eos, Abs 06/20/2024 09:03:43 0.04 0.00-0.70 (K/uL) Final Basos, Abs 06/20/2024 09:03:43 0.04 0.00-0.20 (K/uL) Final Immature Granulocytes, Number 06/20/2024 09:03:43 0.01 0.00-0.20 (K/uL) Final Performing Location [facility] [place] [address] [facility] [address]
--- OUTSIDE RECORDS SUMMARY | 2024-08-01 14:19 | External Medical Summary | Summary of Care ---
Author Name Unknown Organization [facility] Address [address] [place] [address] Phone [phone] Care Team Providers Care Industrial Relations Representative Name Role Phone RizwanRosalinda lehman Charu BURLESON Primary Care Provider Reason for Referral * Precert (Diagnostic Medical) (Within 10 days (routine)) - Authorized Specialty Diagnoses / Procedures Referred By Jass brooks Referred To Contact Cardiac Studies Diagnoses ASCVD (arteriosclerotic cardiovascular disease) Chronic diastolic congestive heart failure (HCC) Procedures ECHO, COMPLETE (2D), TRANS-THORACIC Valerie Ibrahim CRNP [address] [place] [address] Phone: tel: fax: Referral ID Status Reason Start Date Expiration Date V isits Requested Visits Authorized [id number] Authorized Precert 08/03/2024 999 999 Reason for Visit * Reason Comments Follow Up Encounter Details Date Type Department Care Team (Late st Contact Info) Description 06/20/2024 11:00 AM EDT Office Visit Cardiology, [facility] [address] [place] [phone] Valerie Ibrahim CRNP [address] [place] [address] ASCVD (arteriosclerotic cardiovascular disease)*; Chronic diastolic congestive heart failure (HCC); Sick sinus syndrome (HCC); Cardiac pacemaker in situ; HTN, goal below 140/90; Dyslipidemia, goal LDL below 70; Peripheral vascular disease (HCC) Allergies Active Allergy Reactions Criticality Noted Date Comments Adhesive Tape 05/27/2021 Other reaction(s): Rash Chlorhexidine Low 12/30/2020 Other reaction(s): rash, itching Escitalopram Oxalate Itching,Other (Please comment) 09/07/2011 Jittery Ibuprofen 05/19/2022 Swelling, redness, hives Latex 03/18/2011 Rash Paroxetine Hcl 10/24/2015 Foggy/visual impairment documented as of this encounter (statuses as of 06/21/2024) Medications TYLENOL ARTHRITIS PAIN 650 MG PO [...] Fluocinolone Acetonide Scalp 0.01 % External Oil (Jackpot-Smoothe/FS Scalp) Apply to external ears as needed [...] as of this encounter (statuses as of 06/21/2024) Active Problems Problem Noted Date Diagnosed Date Chronic diastolic congestive heart failure 04/14 Heart failure, diastolic, with acute decompensat ion 04/14/2024 Leg mass, right 04/13/2024 Leg cramping 07/12/2023 Leg swelling 08/26/2022 Advanced directives, counseling/discussion 03/10 Overview (07/20/2008): PROJECT: #[id number], GRAIN SPOUTER: Angelito Chen MD SUMMARY: Patients with CHD are randomized to darapladib (Lp-PLA2 inhibitor) or placebo in addition to standard of care medications to evaluate incidence of major coronary events. CONTACTS: During normal business hours, contact Clincal Research Coordinator at appropriate clinic location, after hours on-call Clinical Research Coordinator via the [facility] hospital moisture conditioner operator ([phone]). The study sponsor can be reached at: Prolapse of vaginal vault after hysterectomy Rectocele 09/13/2020 History of cigarette smoking 09/13/2020 Overview (09/13/2020): 30 pack year Diverticulosis of large intestine without hemorr lucy 08/02/2019 Cystocele, lateral 06/28/2018 NOEL (generalized anxiety disorder) 05/23/2018 ASCVD (arteriosclerotic cardiovascular disease) 03/09/2018 Cardiac pacemaker in situ 11/12/2017 Sick sinus syndrome 11/11/2017 Old RI (myocardial infarction) 11/11/2017 Peripheral vascular disease 10/01/2017 HTN, goal below 130/80 10/03/2015 Anemia due to vitamin B12 deficiency 08/26/2015 Vitamin D deficiency 08/26/2015 DDD (degenerative disc disease), cervical 2013 Gastroesophageal reflux disease with esophagitis 12/21/2011 IBS (irritable bowel syndrome) 06/11/2011 Dyslipidemia 02/28/2009 Overview (02/28/2009): Per Lipid Taxonomy. Generalized osteoarthritis Rosacea documented as of this encounter (statuses as of 06/21/2024) Resolved Problems Problem Noted Date Diagnosed Date Resolved Date Depression, unspecified 12/23/2022 12/0 06/2022 Migraine with aura, not intr actable, without status migrainosus 07/07/2022 07/05/2023 Hematuria, gross 03/04/2021 04/13/2024 History of UTI 03/04/2021 04/13/2024 Coronary artery disease invo lving false pass coronary artery of false pass heart with unstable angina pectoris 07/18/2020 04/06/2023 Gastroesophageal reflux dise ase without esophagitis 06/11/2020 03/31/2022 Pain, dental 12/04/2017 06/24/2018 Visual loss 03/29/2017 10/01/2017 Headache, unspecified headache type 03/29/2017 11/11/2017 Neck discomfort 03/29/2017 10/01/2017 Abdominal pain, right upper quadrant 09/04/2016 12/07/2016 Chest pain, non-cardiac 08/09/2016 04/0 07/2018 Overview (08/10/2016): Cath [facility] 07/2016 with no changes - 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 Diagonal Abnormal nuclear stress test 07/27/2016 11/11/2017 Overview (08/10/2016): anterolat ischemia on nuclear 07/2016, totally expected as she has chronic total diagnonal occlusion Moderate persistent asthma w ithout complication 04/30/2016 05/19/2022 Viral URI with cough 03/01/2016 017 Coronary artery disease invo lving false pass coronary artery of false pass heart with unstable angina pectoris 10/03/2015 06/11/2020 Overview (08/10/2016): [facility] Ant wall RI at the age of 45 s/p PTCA of the LAD at [place] S/p Cath 2010, with RESEARCH LABORATORY TECHNICIAN of the diag 07/2016 [employer]: moderate ischemia in a large portion of the anterior lateral and lateral myocardium.EF 76% 07/2016 Cath [facility] for atyp back pain and abnl nuclear stress: Patent LAD and RCA, known RESEARCH LABORATORY TECHNICIAN of the diagonal. Anxiety 05/21/2015 06/24/2018 Paraesophageal hernia 02/04/20152019 Cholelithiasis 11/05/2011 11/11/2017 Old myocardial infarct 10/11/200806/24 Overview (10/11/2008): Modified by Acute RI Protocol #5. Follow-up of anterolateral m yocardial [...] 06/09/2002 10/11/2008 Overview (10/11/2008): Modified by Acute RI Protocol #5. CORONARY ATHEROSCLEROSIS VESSEL NOS 02/15/2002 10/03/2015 Dyslipidemia, goal to be determined 02/15/2002 02/13/2009 Overview (02/13/2009): Per Lipid Taxonomy DIVERTICULITIS OF COLON 07/21 PURE HYPERCHOLESTEROLEM 02/19 Overview (02/28/2009): Per Lipid Taxonomy. Acute RI, anterior wall 09/20 Overview (10/11/2008): Modified by Acute RI Protocol #5. 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[employer] Not on file Not on file Not on file documented as of this encounter Last Filed Vital Signs Vital Sign Reading Time Taken Comments Blood Pressure 124/68 06/20/2024 9:56 AM EDT Pulse 66 06/20/2024 9:56 AM EDT Temperature - - Respiratory Rate - - Oxygen Saturation - - Inhaled Oxygen Concentration - - Weight 69.9 kg (154 lb) 06/20/2024 9:56 AM EDT Height - - Body Mass [...] documented in this encounter Progress Notes * Valerie Ibrahim CRNP - 06/20/2024 11:00 AM EDT 06/20/2024 Cardiology Follow Up Primary Inpatient Pharmacist: Keyur Uriarte PA-C Cardiac Problems: Chronic ischemic heart disease History of anterior wall RI at age 45, PTCA of the LAD at that time. Abnormal stress testing in March 2004 with repeat catheterization on 04-09-04 demonstrating nonobstructive CAD with a total chronic occlusion of a 2nd diagonal branch and mild CAD elsewhere. Cardiac catheterization in July 2016 demonstrating the chronic total occlusion of a diagonal branch with [id number] collaterals, 30% ostial RCA stenosis, and 30% mid RCA stenosis. LVEDP normal, 8 mmHg. Presentation to [facility] May 2018 with unstable angina. Diagnostic cardiac catheterization with severe single-vessel coronary artery disease with an 80% mid RCA stenosis for which she underwent PCI, 3.0 x 18 mm drug-eluting stent implantation by Dr. Mclaughlin Admission to [facility] in October 2018 with unstable angina, status post November 16, 2018 cardiac catheterization which demonstrated a severe, moderately calcified, 70% ostial right coronary artery stenosis with catheter dampening noted on engagement, status post successful PCI theostial RCA with a single 3.0 x 12 Xience Eda drug-eluting stent. The previously placed mid RCA stent was noted to be patent. Chronic diagonal occlusion with collaterals. Admission to [facility] in April 2019 with chest pain, abnormal pharmacological stress testing leading to cardiac catheterization performed on 05/09/2019 - patent RCA stents; known chronic diagonal branch vessel occlusion. Sick sinus syndrome status post November 03, 2017 dual-chamber pacemaker implantation Hypertension Hyperlipidemia Obesity Anxiety Diverticulosis/diverticulitis IBS GERD Hiatal hernia status post laparoscopic paraesophageal hernia repair with complicated postoperative course Iron deficiency anemia Cholelithiasis General osteoarthritis. Hospitalized with facial cellulitis versus acute inflammatory reaction treated with antibiotic therapy followed by hospitalization in November 2020 with C diff colitis. Hospital course complicated by a profound episode of substernal chest discomfort not relieved by sublingual nitroglycerin. Cardiac enzymes, EKGs, and echocardiogram did not suggest an acute ischemic event. Pre-hospital cardiac regimen was continued as prescribed. Status post December 30, [address] Conner Chow Patient hospitalized at [facility] May 27, 2021 to May 28, 2021 with chest pain attributed to anxiety. EKG without acute changes. Troponin negative x3. Resting echocardiography summarized below. HPI: Ciarra Mcguire is a 78 year old female presents with her spouse for routine cardiology followup. Last seen in the office 12/2023 by JACLYN Cardona from a cardiac perspective. Patienthad advised that she was not taking her furosemide 4 days per week, but rather PRN. She was holdingoff on increasing her statin therapy due to joint aches. Patient had a recent ER visit at [facility] 04/04/24 for complaints of headache, dizziness and shortness of breath. Her testing was unremarkable with exception of an elevated DDS. Patient under went CT imaging of her head/neck and chest. No evidence of PE, but there was findings of a lung nodule which shewas advised to follow up with her PCP for. Presents today accompanied by spouse feeling fair. She expresses concern of extreme shortness of breath. She feels like when her heart rate goes up her "tongue swells". Reviewed her pacemaker which shows normal function. Reassured patient that these findings were normal. Patient is compliant on all medication therapies with no untoward effects. BP is well controlled. Patient is slated to see Dr. Acevedo for tooth extraction, date to be determined Has ongoing leg aching with "purple feet". Review of records shows that patient had had venous duplex dating back to 2022 showing evidence of modest reflux. She had a recent RLE non-vascular ultrasound completed due to concerns of muscular leg difference which was normal. She has evidence of venousinsuffiencey, legs are always improved in the morning REVIEW OF SYSTEMS: See HPI for pertinent positives. All others negative other than those noted in the HPI. CONSTITUTIONAL: No change in weight, No weakness, No fatigue and No fevers, No sweats or chills. PULMONARY: No cough, sputum, or hemoptysis, No wheezing, No shortness or breath and No recent change in breathing. CARDIOVASCULAR: No chest pain, No dyspnea on exertion, No edema, No palpitations and No syncope. GASTROINTESTINAL: No abdominal pain, No change in bowel habits, No significant heartburn, No nausea, No vomiting, No diarrhea, No constipation, No blood in stools or black tarry stools. No dysphagia. HEMATOLOGIC: No abnormal bleeding and No bruising. NEUROLOGICAL: Normal balance, No headaches and No weakness. Review of patient's allergies indicates: Allergen Reactions [...] mouth 2 times a day. Taking daily Benefiber Oral Powder Take by mouth daily . Tablespoon full Albuterol Sulfate HFA 108 (90 Base) MCG/ACT Inhalation Aerosol Solution Inhale 2 Puffs by mouth every 4 hours as needed for Wheezing. 54 g 3 Polyethylene Glycol 3350 17 GM Oral Packet Take 1 Packet by mouth in the morning. Docusate Sodium 50 MG Oral Capsule Take [...] BY MOUTH EVERY DAY 90 Capsule 3 Estradiol 0.5 MG Oral Tablet (Estrace) TAKE ONE TABLET BY MOUTH EVERY DAY ON SUNDAYS, TUESDAYS, THURSDAYS AND SATURDAYS 90 Tablet 2 busPIRone HCl 5 MG Oral Tablet (Buspar) TAKE ONE TABLET BY MOUTH TWICE A DAY 180 Tablet 3 Fluocinolone Acetonide Scalp 0.01 % External Oil (Jackpot-Smoothe/FS Scalp) Apply to external ears asneeded for itching. 118.28 mL 0 Clotrimazole-Betamethasone 1-0.05 % External Cream (Lotrisone) Apply topically to affected area 2 times a day. 45 g 0 Atenolol 50 MG Oral Tablet (Tenormin) [...] TBCR Take 1 Tablet by mouth daily. AMBULATORY MISCELLANEOUS MEDICATION 03/25 CBD gummy once daily for anxiety (Patient not taking: Reported on 06/20/2024) Nitroglycerin 0.4 MG Sublingual Tablet Sublingual (Nitrostat) [...] taking: Reported on 06/20/2024) 30 Tablet 1 Bismuth Subsalicylate 262 MG/15ML Oral Suspension (Pepto-Bismol) Take 30 mL by mouth every 4 hours as needed. metroNIDAZOLE 1 % External Gel (Metrogel) Apply to face daily after washing with soap and water andthen use SPF 30 daily (Patient not taking: Reported on 06/20/2024) 60 g 2 No current facility-administered medications for this visit. Past Medical History: Diagnosis Date Actinic keratosis Acute RI, anterior wall (HCC) 2001 Calculus of gallbladder without mention of cholecystitis or obstruction 11/05/2011 Calculus of kidney Cardiac pacemaker in situ 11/12/2017 Clostridioides difficile infection 10/2020 Coronary artery disease involving false pass coronary artery of false pass heart with unstable angina pectoris (HCC) CORONARY [...] for prophylactic hormone replacement therapy (postmenopausal) Old RI (myocardial infarction) 11/11/2017 Old myocardial infarct 10/11/2008 Modified by Acute RI Protocol #5. 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 Shig A toxin positive Family History Problem Relation Name Age of Onset Hypertension Mother Arthritis Mother Cancer Father lung Heart Disorder Father Hypertension Father Renal Hx Father Arthritis Brother Renal Hx Brother Kidney Stones Heart Disorder Brother CAD/RI Gastro-intestinal disorder Daughter Kandace Chertow Reflux Endocrine Disorder Son hypopituitarism Eye Problems Aunt (Unspecified) Great Aunt AMD Glaucoma None Unsure Breast Cancer Aunt (Unspecified) Social History Socioeconomic History Marital status: Spouse name: Gokul Number of children: 2 Occupational History 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 (Adult - for ages 18 years and over): Never Housing Stability: Low Risk (08/11/2023) Housing Stability Do you currently live in a detention or have no steady place to sleep at night? (Adult - for ages 18 years and over): No Do you think you are at risk of becoming homeless? (Adult - for ages 18 years and over): No OBJECTIVE/PHYSICAL EXAMINATION: BP 124/68 | Pulse 66 | Wt 69.9 kg (154 lb) | BMI 29.34 kg/m² | BSA 1.73 m² General: No acute distress. A+Ox3. HEENT: Normocephalic. Atraumatic. PERRL. EOMI. Conjunctiva and sclera clear. NECK: No carotid bruits. No JVD. Carotid upstrokes are brisk. Heart: RRR. S1 and S2 noted. No murmur. No rubs or gallops. PMI non displaced. Lungs: Clear to auscultation. No wheezes.No rhonchi. No rales. Abdomen: Normal bowel sounds. Soft. Nontender. No masses or organomegaly. No abdominal bruits. Extremities: No edema. No clubbing or cyanosis. Pulses: radial=2/4, posterior tibial=2/4, dorsalis pedis = 2/4. NEURO: No focal deficits. PSYCH: Appropriate affect and insight. DATA Labs & Imaging Reviewed Below: Device interrogation 03/16/24 Normal Device Function Alerts or events: None Battery: 2.99V, 7.75 yrs Sensing, impedance and thresholds reviewed Programmed parameters reviewed Presenting rhythm APVS Heart Rate Histograms reviewed No significant changes not November 13, 2022 TTE Interpretation Summary (as per Dr. Waller): The left ventricular cavity size is normal. The LV wall thickness is normal. The left ventricular wall motion is normal. The qualitativeLV ejection fraction is 55-59% (normal). The left ventricular diastolic function is mildly abnormal(grade I). Mild aortic valve sclerosis is present. Mild aortic valve regurgitation is present. Mildmitral regurgitation is present. There is no evidence of pulmonary hypertension. December 02, 2022 Lexiscan Interpretation Summary (as per Dr. Espino): Lexiscan nuclear stress test suggestive of a small area of mild ischemia in the mid anterior and anteroaleral wall. This likley corresponds to the known occluded diagonal vessel. Low risk stress test. The LV ejection fraction is calculated at >80%. Gated SPECT images reveals normal myocardial thickening and wall motion. Device interrogation on December 13, 2023 personally reviewed, revealing appropriate function, 7.9years remaining longevity. Atrial paced 100%. Ventricular paced less than 0.1%. No VT. ASSESSMENT/PLAN: 78 year old year old female 1. ASCVD (arteriosclerotic cardiovascular disease) 2. Chronic diastolic congestive heart failure (HCC) -Discussed patient's dyspnea, reviewed recent device interrogation and recent EKG/labs from the ER ([facility]). -Recommend that we obtain a resting echocardiogram to assess overall structure and function. -BP well controlled. -Continue Atenolol, Atorvastatin, Furosemide and ASA 81mg - ECHO, COMPLETE (2D), TRANS-THORACIC; Future 3. Sick sinus syndrome (HCC) 4. Cardiac pacemaker in situ -Recent device interrogation shows normal function, no events or alarms 5. HTN, goal below 140/90 -Well controlled -Continue atenolol and Furosemide 6. Dyslipidemia, goal LDL below 70 -Recommend yearly lipid panel -Continue Atorvastatin 7. Peripheral vascular disease (HCC) -Known history of PVD -elevate legs when able, may wear compression stockings to assist with fluid mobilization and decrease reflux -Patient had good peripheral pulses in feet as well as popliteal by examination DISPOSITION: Follow up 6 months or if symptoms worsen/fail to improve. All questions were answered to the patients satisfaction. Patient advised to report to ED with any and all emergencies. The patient agrees to the above plan and will call with additional questions or concerns. BENJY Serra Cardiology, [facility] [address] [place] [phone] I spent a total of 30 minutes on the date of service in preparation, delivery, and documentation ofthe care provided to Ciarra Mcguire excluding any time spent in the performance of separately billed services. This chart was completed in part utilizing [employer] Speech Voice Recognition Software. Grammatical errors, random word insertions, pronoun errors, and incomplete sentences are an occasional consequence of this system due to software limitations, ambient noise, and hardware issues. Any formal questions or concerns about the content, text, or information contained within the body of this dictation should be directly addressed to the provider for clarification. documented in this encounter Nursing Notes * Janay Akers CMA - 06/20/2024 9:52 AM EDT Examination Room: 7 Name: Ciarra Mcguire Date of : (1945) Reason for Visit: 7 Interim Hospitalization(s): March- high blood pressure and headache Problems/Concerns: Center of upper back hurts,center of chest hurts, pacer check? Chest Pain/SOB: occasional CP and SOBOE [facility] is a way you can talk to your provider online through e-mail. Would you like to sign up? I can activate it for you? ALREADY ACTIVE Patient was instructed to not get up on the exam table until directed and assisted by their provider; patient is to remain seated in the chair/ wheelchair/ exam table for fall prevention and safety reasons. Patient is aware to have assistance to step down off exam table with personnel. Patient voiced full comprehension of instructions. documented in this encounter Plan of Treatment Upcoming Encounters Date Type Department Care Team (Late st Contact Info) Description 06/21/2024 3:30 PM EDT Office Visit Ophthalmology, [address] [place] [address] Kenny Hector DO [address] [place] [address] 07/05/2024 1:00 PM EDT Office Visit Gastroenterology, [facility] [address] [place] [phone] Aster Dawson CRNP [address] [place] [address] 07/14/2024 8:40 AM EDT Office Visit Family Practice [facility] [address] [place] [address] Rosalinda Peterson CRNP [address] [place] [address] 08/03/2024 9:25 AM EDT Office Visit Urogynecology [facility] [address] [place] [address] Hiro Lyons MD [address] [place] [address] Nurse Rahel Ramesh [address] [place] [address] 08/11/2024 9:30 AM EDT Cardiac Studies Cardiac Studies, [facility] [address] [place] [phone] 03/08/2025 3:00 PM EST Office Visit Cardiology, [facility] [address] [place] [phone] Valerie Ibrahim CRNP [address] [place] [id number] Scheduled Orders Name Type Priority Associated Diagnoses Orde r Schedule ECHO, COMPLETE (2D), TRANS-THORACIC Echocardiology Routine ASCVD (arteriosclerotic cardiovascular disease) Chronic diastolic congestive heart failure (HCC) Expected: 08/03/2024, Expires: 12/20/2025 Health Maintenance Due Date Last Done Comments [...] this encounter Medical Devices Implanted Type Area Goodwill Representative Device Identifier Shelf Expiration Date Model / Serial / Lot Alloderm 2x4 Sheet [id number] ( 8 Units ) - [id number] - [id number] Implanted:Qty : 8 on 02/04/2015 by Marques Rodriguez MD at OR [facility] Tissue - Human N/A: Esophagus [employer] 07/19/2016 [id number] / [id number] Stent Eso Gw [id number] - [id number] Implanted:Qty : 1 on 02/05/2015 by Marques Rodriguez MD at OR [facility] N/A: Esophagus [employer] 05/19/2017 [id number] / / [id number] documented as of this encounter Visit Diagnoses Diagnosis ASCVD (arteriosclerotic cardiovascular disease)- Primary Unspecified cardiovascular disease Chronic diastolic congestive heart failure (HCC) Chronic diastolic heart failure Sick sinus syndrome (HCC) Sinoatrial node dysfunction Cardiac pacemaker in situ HTN, goal below 140/90 Unspecified essential hypertension Dyslipidemia, goal LDL below 70 Other and unspecified hyperlipidemia Peripheral vascular disease (HCC) Peripheral vascular disease, unspecified Visual distortions of shape and size- Primary Dry eyes, bilateral Tear film insufficiency, unspecified Pseudophakia Lens replaced by other means documented in this encounter Advance Directives Documents on File Type Date Recorded Patient Probate Clerk Expl anation Power of Nozzle Tender 01/22/2005 POWER OF A TTORNEY DURABLE POWER OF SERVICE ORDER DISPATCHER * Full Code (Latest Code Status on [...] Carpiojoyce Spouse Health Care Sneha r of Nozzle Tender Care Teams Industrial Relations Representative Relationship Specialty Start Date End Date Rosalinda Peterson CRNP [address] [place] [address] PCP - General Nurse Practitioner 04/05/24 documented as of this encounter
--- OUTSIDE RECORDS SUMMARY | 2024-08-01 14:19 | External Medical Summary ---
Author Name Unknown Address Unknown Organization K01:LABORATORY C - [address] [place] [address] Laboratory Report Ordering Provider Test Date Status KRISTINE MOSQUEDAStephen 06/20/2024 09:03:43 Final Observation Date Value Abnormality Reference (Units ) Status T4, Free 06/20/2024 09:03:43 1.0 0.9-1.7 (n g/dL) Final Performing Location [facility] - [address] [facility] [address]
--- OUTSIDE RECORDS SUMMARY | 2024-08-01 14:19 | External Medical Summary ---
Author Name Unknown Address Unknown Organization K01:[facility] [address] [place], [place] [address] [address] Laboratory Report Ordering Provider Test Date Status LOIS MOSQUEDA 06/20/2024 09:03:43 Final Observation Date Value Abnormality Reference (Units ) Status WBC, Total 06/20/2024 09:03:43 5.12 4.00-10.8 0 (K/uL) Final RBC 06/20/2024 09:03:43 4.73 3.85-5.15 (M/uL) Final Hemoglobin 06/20/2024 09:03:43 14.7 12.0-15.3 (g/dL) Final Anemia reflex testing trigge rs on a HGB < 12.0 for Females and HGB < 13.0 for Males in accordance with the WHO Anemia Guidelines
Anemia reflex testing triggers on a HGB < 12.0 for Females and HGB < 13.0 for Males in accordance with the WHO Anemia Guidelines HCT 06/20/2024 09:03:43 45.8 Above hi gh normal 36.0-45.2 (%) Final MCV 06/20/2024 09:03:43 96.8 81.5-97.5 (fL) Final MCH 06/20/2024 09:03:43 31.1 27.0-34.0 (pg) Final MCHC 06/20/2024 09:03:43 32.1 32.0-36.0 (g/dL) Final RDW 06/20/2024 09:03:43 12.9 11.5-15.5 (%) Final Platelets 06/20/2024 09:03:43 236 140-400 (K /uL) Final MPV 06/20/2024 09:03:43 10.9 6.6-11.1 ( fL) Final Nucleated erythrocytes/100 leukocytes [Ratio] in Blood by Automated count 06/20/2024 09:03:43 0 <=0 (/100 WBCs) Final Performing Location [facility] [place] [address] [facility] [address]
--- OUTSIDE RECORDS SUMMARY | 2024-08-01 14:19 | External Medical Summary | Summary of Care ---
Author Name Unknown Organization [facility] Address [address] [place] [address] Phone [phone] Care Team Providers Care Bumper Straightener Name Role Phone Rosalinda Peterson Charu BENJY Primary Care Provider Reason for Visit * Reason Onset Date Comments Test Results Imaging Study 06/13/2024 Encounter Details Date Type Department Care Team (Late st Contact Info) Description 06/13/2024 Telephone Gastroenterology, [facility] [address] [place] [address] Aster Dawson CRNP [address] [place] [address] Test Results Imaging Study Allergies Active Allergy [...] Fluocinolone Acetonide Scalp 0.01 % External Oil ([place]-Smoothe/FS Scalp) Apply to external ears as needed [...] Advanced directives, counseling/discussion 03/10 Overview (07/20/2008): PROJECT: #[id number], SENIOR SOFTWARE ENGINEER ANALYTICS: Angelito Chen MD SUMMARY: Patients with CHD are randomized to darapladib (Lp-PLA2 inhibitor) or placebo in addition to standard of care medications to evaluate incidence of major coronary events. CONTACTS: During normal business hours, contact Clincal Research Coordinator at appropriate clinic location, after hours on-call Clinical Research Coordinator via the [facility] [place] bus and rail operator ([phone]). The study sponsor can be reached at: Prolapse of vaginal vault after hysterectomy Rectocele 09/13/2020 History of cigarette smoking 09/13/2020 Overview (09/13/2020): 30 pack year Diverticulosis of large intestine without hemorr lucy 08/02/2019 Cystocele, lateral 06/28/2018 NOEL (generalized anxiety disorder) 05/23/2018 ASCVD (arteriosclerotic cardiovascular disease) 03/09/2018 Cardiac pacemaker in situ 11/12/2017 Sick sinus syndrome 11/11/2017 Old [place] (myocardial infarction) 11/11/2017 Peripheral vascular disease 10/01/2017 [...] 03/04/2021 04/13/2024 Coronary artery disease invo lving kiana coronary artery of kiana heart with unstable angina pectoris 07/18/2020 04/06/2023 Gastroesophageal reflux dise ase without esophagitis 06/11/2020 03/31/2022 Pain, dental 12/04/2017 06/24/2018 Visual loss 03/29/2017 10/01/2017 Headache, unspecified headache type 03/29/2017 11/11/2017 Neck discomfort 03/29/2017 10/01/2017 Abdominal pain, right upper quadrant 09/04/2016 12/07/2016 Chest pain, non-cardiac 08/09/2016 0407/2018 Overview (08/10/2016): [facility] 07/2016 with no changes - old NEWS PHOTOGRAPHER Diagonal Abnormal nuclear stress test 07/27/2016 11/11/2017 Overview (08/10/2016): anterolat ischemia on nuclear 07/2016, totally expected as she has chronic total diagnonal occlusion Moderate persistent asthma w ithout complication 04/30/2016 05/19/2022 Viral URI with cough 03/01/2016 017 Coronary artery disease invo lving kiana coronary artery of kiana heart with unstable angina pectoris 10/03/2015 06/11/2020 Overview (08/10/2016): Editor Trade Journal: Amador Barry PA-C [facility] Hx Ant wall [place] at the age of 45 s/p PTCA of the LAD at [place] S/p Cath 2010, with NEWS PHOTOGRAPHER of the diag 07/2016 [facility]: moderate ischemia in a large portion of the anterior lateral and lateral myocardium.EF 76% 07/2016 Cath [facility] for atyp back pain and abnl nuclear stress: Patent LAD and RCA, known NEWS PHOTOGRAPHER of the diagonal. Anxiety 05/21/2015 06/24/2018 Paraesophageal hernia 02/04/20152019 Cholelithiasis 11/05/2011 11/11/2017 Old myocardial infarct 10/11/200806/24 Overview (10/11/2008): Modified by Acute [place] Protocol #5. Follow-up of anterolateral m yocardial [...] 06/09/2002 10/11/2008 Overview (10/11/2008): Modified by Acute [place] Protocol #5. CORONARY ATHEROSCLEROSIS VESSEL NOS 02/15/2002 10/03/2015 Dyslipidemia, goal to be determined 02/15/2002 02/13/2009 Overview (02/13/2009): Per Lipid Taxonomy DIVERTICULITIS OF COLON 07/21 PURE HYPERCHOLESTEROLEM 02/19 Overview (02/28/2009): Per Lipid Taxonomy. Acute [place], anterior wall 09/20 Overview (10/11/2008): Modified by Acute [place] Protocol #5. 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, including hip 11/11/2017 documented as of this encounter (statuses as of 06/26/2024) Immunizations Name Administration Dates Next Due COVID-19 mRNA, LNP-s, No Pre serve, 2-Dose Series (MeMed) 02/11/2021,06/10/2020,05/15/2020 COVID-19, MRNA-LNP, PF, 30 M CG/0.3 mL, 12 YRS AND ABOVE, IM ([facility] 12/10/2023,06/17/2023 Covid-19, Mrna, Lnp-s, Pf, B ivalent, 30 Mcg, IM, 12 yrs and above (MeMed) 12/04/2021 H1N1 2008 Influenza, IM 05/29/2009 Pneumococcal [...] Does the household have a [facility] source of income? 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 She can be reached at [phone]. Thank you! * Telephone Encounter - Ca [...] 07/05/2024 1:00 PM EDT Office Visit Gastroenterology, [facility] [address] [phone] Aster Dawson CRNP [address] [address] 07/14/2024 8:40 AM EDT Office Visit Family Practice [facility] [address] [address] Rosalinda Peterson CRNP [address] [place] [address] 08/03/2024 9:25 AM EDT Office Visit Urogynecology [facility] [address] [place] [address] Hiro Lyons MD [address] [place] [address] Nurse Rahel Ramesh [facility] [address] [place] [address] 08/11/2024 9:30 AM EDT Cardiac Studies Cardiac Studies, [facility] [address] [place] [phone] 03/08/2025 3:00 PM EST Office Visit Cardiology, [facility] [address] [place] [address] Valerie Ibrahim CRNP [address] [place] [address] 06/21/2025 10:15 AM EDT Office Visit Ophthalmology, [facility] [address] [address] Kenny Hector DO [address] [address] Nurse [facility] [address] [address] Health Maintenance Due Date Last Done Comments [...] this encounter Medical Devices Implanted Type Area Transformer Assembly Supervisor Device Identifier Shelf Expiration Date Model / Serial / Lot Alloderm 2x4 Sheet [id number] ( 8 Units ) - [id number] - [id number] Implanted:Qty : 8 on 02/04/2015 by Marques Rodriguez MD [place] [facility] Tissue - Human N/A: Esophagus LIFE CELL EMMANUEL 07/19/2016 [id number] / [id number] / [id number] Stent Eso Gw [id number] - [id number] Implanted:Qty : 1 on 02/05/2015 by Marques Rodriguez MD [place] [facility] N/A: Esophagus AL[employer]OLUS INC 05/19/2017 [id number] / / [id number] documented as of this encounter Advance Directives Documents on File Type Date Recorded Patient Business Center Attendant Expl anation Power of House Parent 01/22/2005 POWER OF A TTORNEY DURABLE POWER OF METAL MOVER * Full Code (Latest Code Status on [...] Shayla Spouse Health Care Sneha r of House Parent Care Teams Bumper Straightener Relationship Specialty Start Date End Date Rosalinda Peterson CRNP [address] [address] PCP - General Nurse Practitioner 04/05/24 documented as of this encounter
--- OUTSIDE RECORDS SUMMARY | 2024-08-01 14:19 | External Medical Summary ---
Author Name Unknown Address Unknown Organization K0G:LABORATORY [place] [place] [facility] - [address] [place] [address] Laboratory Report Ordering Provider Test Date Status LOIS MOSQUEDA 06/20/2024 09:03:43 Final Observation Date Value Abnormality Reference (Units ) Status BUN 06/20/2024 09:03:43 9 6-20 (mg/dL) Final Creatinine 06/20/2024 09:03:43 0.9 0.5-1.0 (mg/dL) Final Glomerular filtration rate/1.73 sq M.predicted [Volume Rate/Area] in Serum, Plasma or Blood by Creatinine-based formula (CKD-EPI) 06/20/2024 09:03:43 67 >=60 (mL/min) Final eGFR is calculated based on the CKD-EPI 2020 equation. Sodium 06/20/2024 09:03:43 140 135-146 (m mol/L) Final Potassium 06/20/2024 09:03:43 5.2 Above high normal 3. 5-5.1 (mmol/L) Final Cl 06/20/2024 09:03:43 103 98-107 (mm ol/L) Final CO2 06/20/2024 09:03:43 26 22-32 (mmo l/L) Final Anion gap 06/20/2024 09:03:43 11 7-15 (mmol /L) Final Glucose 06/20/2024 09:03:43 99 70-120 (mg /dL) Final Albumin 06/20/2024 09:03:43 4.3 3.8-5.0 (g /dL) Final AST (Aspartate aminotransferase) 06/20/2024 09:03:43 19 10-35 (U/L) Fin al Alk Phos 06/20/2024 09:03:43 146 Above high normal 35 -130 (U/L) Final Bilirubin, Total 06/20/2024 09:03:43 0.7 <=1 .2 (mg/dL) Final Calcium 06/20/2024 09:03:43 9.7 8.4-10.2 ( mg/dL) Final Protein 06/20/2024 09:03:43 6.6 6.0-8.3 (g /dL) Final ALT (Alanine aminotransferase) 06/20/2024 09:03:43 12 10-35 (U/L) Samy reed Performing Location LABORATORY [facility] - [address] [facility] [address]
--- OUTSIDE RECORDS SUMMARY | 2024-08-01 14:19 | External Medical Summary ---
Author Name Unknown Address Unknown Organization K01:[facility] - [address] [place] [address] Laboratory Report Ordering Provider Test Date Status LOIS MOSQUEDA 06/20/2024 09:03:43 Final Observation Date Value Abnormality Reference (Units ) Status Magnesium 06/20/2024 09:03:43 2.2 1.5-2.6 (m g/dL) Final Performing Location [facility] - [address] [place] [address]
--- OUTSIDE RECORDS SUMMARY | 2024-08-01 14:19 | External Medical Summary | Summary of Care ---
Author Name Unknown Organization [facility] Address [address] [place] [address] Phone [phone] Care Team Providers Care Wrapper Sheeter Name Role Phone Rosalinda Peterson Primary Care Provider Reason for Visit * Reason Comments Eye Exam * Evaluate & Treat - Unlimited Visits (Within 30 days (routine)) - Authorized Specialty Diagnoses / Procedures Referred By Jass brooks Referred To Contact Ophthalmology Diagnoses Bilateral dry eyes Blurred vision, bilateral Rosalinda Peterson CRNP [address] [place] [address] Phone: tel: fax: Referral ID Status Reason Start Date Expiration Date Visits Requested Visits Authorized [id number] Authorized Specialty Services Required 04/13/[phone] Encounter Details Date Type Department Care Team (Late st Contact Info) Description 06/21/2024 3:30 PM EDT Office Visit [facility] [place] [address] Kenny Hector DO [facility] [place] [address] Visual distortions of shape and size*; Dry eyes, bilateral; Pseudophakia Allergies Active Allergy Reactions Criticality Noted Date [...] 3 06/13/19 21 Active AMBULATORY MISCELLANEOUS MEDICATION 1/4 CBD gummy once daily for anxiety Active [...] Fluocinolone Acetonide Scalp 0.01 % External Oil ([place]-Smoothe/FS Scalp) Apply to external ears as needed [...] Advanced directives, counseling/discussion 03/10 Overview (07/20/2008): PROJECT: #[id number], OPERATIONS VOCATIONAL INSTRUCTOR: Angelito Chen MD SUMMARY: Patients with CHD are randomized to darapladib (Lp-PLA2 inhibitor) or placebo in addition to standard of care medications to evaluate incidence of major coronary events. CONTACTS: During normal business hours, contact Clincal Research Coordinator at appropriate clinic location, after hours on-call Clinical Research Coordinator via the [facility] [place] cable tool operator ([phone]). The study sponsor can be reached at: Prolapse of vaginal vault after hysterectomy Rectocele 09/13/2020 History of cigarette smoking 09/13/2020 Overview (09/13/2020): 30 pack year Diverticulosis of large intestine without hemorr lucy 08/02/2019 Cystocele, lateral 06/28/2018 NOEL (generalized anxiety disorder) 05/23/2018 ASCVD (arteriosclerotic cardiovascular disease) 03/09/2018 Cardiac pacemaker in situ 11/12/2017 Sick sinus syndrome 11/11/2017 Old [place] (myocardial infarction) 11/11/2017 Peripheral vascular disease 10/01/2017 [...] 03/04/2021 04/13/2024 Coronary artery disease invo lving [place] coronary artery of [place] heart with unstable angina pectoris 07/18/2020 04/06/2023 Gastroesophageal reflux dise ase without esophagitis 06/11/2020 03/31/2022 Pain, dental 12/04/2017 06/24/2018 Visual loss 03/29/2017 10/01/2017 Headache, unspecified headache type 03/29/2017 11/11/2017 Neck discomfort 03/29/2017 10/01/2017 Abdominal pain, right upper quadrant 09/04/2016 12/07/2016 Chest pain, non-cardiac 08/09/2016 04/0 07/2018 Overview (08/10/2016): Cath [facility] 07/2016 with no changes - 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 Diagonal Abnormal nuclear stress test 07/27/2016 11/11/2017 Overview (08/10/2016): anterolat ischemia on nuclear 07/2016, totally expected as she has chronic total diagnonal occlusion Moderate persistent asthma w ithout complication 04/30/2016 05/19/2022 Viral URI with cough 03/01/2016 017 Coronary artery disease invo lving [place] coronary artery of [place] heart with unstable angina pectoris 10/03/2015 06/11/2020 Overview (08/10/2016): Director Child Development Center: Amador Barry PA-C [facility] Hx Ant wall [place] at the age of 45 s/p PTCA of the LAD at [place] S/p Cath 2010, with SALES PROMOTION COORDINATOR of the diag 07/2016 [facility]: moderate ischemia in a large portion of the anterior lateral and lateral myocardium.EF 76% 07/2016 Cath [facility] for atyp back pain and abnl nuclear stress: Patent LAD and RCA, known SALES PROMOTION COORDINATOR of the diagonal. Anxiety 05/21/2015 06/24/2018 Paraesophageal hernia 02/04/20152019 Cholelithiasis 11/05/2011 11/11/2017 Old myocardial infarct 10/11/200806/24 Overview (10/11/2008): Modified by Acute [place] Protocol #5. Follow-up of anterolateral m yocardial [...] 06/09/2002 10/11/2008 Overview (10/11/2008): Modified by Acute [place] Protocol #5. CORONARY ATHEROSCLEROSIS VESSEL NOS 02/15/2002 10/03/2015 Dyslipidemia, goal to be determined 02/15/2002 02/13/2009 Overview (02/13/2009): Per Lipid Taxonomy DIVERTICULITIS OF COLON 07/21 PURE HYPERCHOLESTEROLEM 02/19 Overview (02/28/2009): Per Lipid Taxonomy. Acute [place], anterior wall 09/20 Overview (10/11/2008): Modified by Acute [place] Protocol #5. 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, including hip 11/11/2017 documented as of this encounter (statuses as of 06/21/2024) Immunizations Name Administration Dates Next Due COVID-19 mRNA, LNP-s, No Pre serve, 2-Dose Series ([place]) 02/11/2021,06/10/2020,05/15/2020 COVID-19, MRNA-LNP, PF, 30 M CG/0.3 [...] Job Start Date Job End Date retired- [employer] Not on file Not on file Not [...] documented in this encounter Progress Notes * Kenny Hector, - 06/21/2024 3:30 PM EDT 06/21/24 [facility] Ophthalmology Clinic Note HPI: Ciarra Mcguire is a 78 year old pt who presents to the eye clinic today as a return. Location: OU Severity: Moderate Quality: Overall stable; restasis helping some but still has tearing especially when in [employer]. Chronic light sensitivity and light/dark association. Distortion in vision. Exacerbating/Remitting Factors: Denies Associated Sx: Denies Past Ocular History: Pseudophakia OU (2003) Glasses KIERSTEN, MGD, blepharitis, ocular rosacea Retinal tear s/p barrier laser OS (PARS) Eye Medications: Warm compresses Restasis BID OU AT's Family Ocular History: Denies ROS: Pt denies acute vision changes Pt denies new onset double vision Pt denies new KING Pt denies new issues surrounding eyes Pt admits to above Please see below for full exam details. Base Eye Exam Visual Acuity (Snellen - Linear) Right Left Dist sc 20/25 +3 20/50 Dist ph sc 20/40 Near sc 20/60 20/200 Tonometry (Tonopen, 1:24 PM) Right Left Pressure 17 16 Pupils Pupils Dark Light Shape React APD Right PERRL 3 2 b r None Left PERRL 3 2 b r None Neuro/Psych Oriented x3: Yes Mood/Affect: Normal Dilation Both eyes: 1.0% Mydriacyl, 2.5% Phenylephrine @ 1:24 PM Additional Tests Keratometry K1 Rockfall K2 Rockfall Right 44.00 124 44.50 34 Left 43.75 16 44.00 106 Slit Lamp and Fundus Exam External Exam Right Left External Normal Normal Slit Lamp Exam Right Left Lids/Lashes Mild blepharitis, MGD, rosacea, PP lower lid Mild blepharitis, MGD, rosacea, PP lower lid Conjunctiva/Sclera White and quiet White and quiet Cornea Decreased TBUT Decreased TBUT Anterior Chamber Deep and quiet Deep and quiet Iris Round and reactive Round and reactive Lens Posterior chamber intraocular lens Posterior chamber intraocular lens Refraction Manifest Refraction Sphere Cylinder Rockfall Right -1.00 +0.75 025 Left -0.25 +0.50 137 Date: 10/14/23 OCT Macula: OD - Compact OS - Compact Date: 06/21/24 OCT Macula: Normal OU - no changes A/P: Dry Eyes, MGD, blepharitis OU Ocular rosacea -Recommend artificial tears up to 4 times daily -Brand names given - Refresh or Systane -Warm compresses -Dilute baby shampoo scrubs -Cont restasis BID OU Continue same treatment as above Visual disturbance of shape and size -Long standing visual issues including episodic visual disturbances, light sensitivity, and light/dark dissociation -Examination stable, OCT macula stable 06/2024 Plan: -Discussed and offered additional imaging - carotid doppler, CTA H&N, MRI imaging - because of otherwise normal eye exam and chronicity of these issues - patient would like to hold off on imagingat this time No urgent role to offer imaging given stability of eye exam Pseudophakia OU -Looks good Retinal tear, OS -S/p barrier laser -Looks great RTC 1 year, OCT macula or sooner prn. Kenny Hector DO 06/21/24 I spent a total of 20-29 minutes (exact time 20 mins) on the date of service in preparation, delivery, and documentation of the care provided to Ciarra Mcguire excluding any time spent in the performance of separately billed services or time spent by another provider/QHP. documented in this encounter Nursing Notes * Ciarra Conde TECH - 06/21/2024 1:13 PM EDT Pt presents at the clinic for OCT. Pt states eyes are still drippy and itchy. documented in this encounter Plan of Treatment Upcoming Encounters Date Type Department Care Team (Late st Contact Info) Description 07/05/2024 1:00 PM EDT Office Visit Gastroenterology, [facility] [address] [phone] Aster Dawson CRNP [address] [address] 07/14/2024 8:40 AM EDT Office Visit Family Practice [facility] [address] [address] Rosalinda Peterson CRNP [address] [address] 08/03/2024 9:25 AM EDT Office Visit Urogynecology [facility] [address] [place] [address] Hiro Lyons MD [address] [place] [address] Nurse Rahel Ramesh [facility] [address] [place] [address] 08/11/2024 9:30 AM EDT Cardiac Studies Cardiac Studies, [facility] [address] [facility] [place] [phone] 03/08/2025 3:00 PM EST Office Visit Cardiology, [facility] [address] [facility] [place] [phone] Valerie Ibrahim CRNP [address] [place] [address] 06/21/2025 10:15 AM EDT Office Visit OphthalmologyLiam [address] [address] Kenny Hector DO [address] [address] Nurse [facility] Ophthalmology [address] [address] Scheduled Orders Name Type Priority Associated Diagnoses Orde r Schedule RETINA SCAN DIAGNOSTIC IMAGE, POSTERIOR Procedures Routine Visual distortions of shape and size Ordered: 06/21/2024 Health Maintenance Due Date Last Done Comments [...] encounter Medical Devices Implanted Type Area Medical Office Administrator Device Identifier Shelf Expiration Date Model / Serial / Lot Alloderm 2x4 Sheet [id number] ( 8 Units ) - [id number] - [id number] Implanted:Qty : 8 on 02/04/2015 by Marques Rodriguez MD at [place] [facility] [place] - Human N/A: Esophagus LIFE CELL EMMANUEL 07/19/2016 [id number] / [id number] Stent Eso Gw [id number] - [id number] Implanted:Qty : 1 on 02/05/2015 by Marques Rodriguez MD at [place] [facility] N/A: Esophagus [employer] 05/19/2017 [id number] / / [id number] documented as of this encounter Visit Diagnoses Diagnosis Visual distortions of shape and size- Primary Dry eyes, bilateral Tear film insufficiency, unspecified Pseudophakia Lens replaced by other means documented in this encounter Advance Directives Documents on File Type Date Recorded Patient Secretary Administrative Assistant Expl anation Power of Stencil Printer 01/22/2005 POWER OF A TTORNEY DURABLE POWER OF ROLL MECHANIC * Full Code (Latest Code Status [...] Mcguire Spouse Health Care Sneha r of Stencil Printer Care Teams Wrapper Sheeter Relationship Specialty Start Date End Date Rosalinda Peterson CRNP [address] [address] PCP - General Nurse Practitioner 04/05/24 documented as of this encounter
--- OUTSIDE RECORDS SUMMARY | 2024-08-01 14:19 | External Medical Summary ---
Author Name Unknown Address Unknown Organization K01[place] [place] [address] [place] [address] [address] Laboratory Report Ordering Provider Test Date Status KRISTINE MOSQUEDAStephen 06/20/2024 09:03:43 Final Observation Date Value Abnormality Reference (Units ) Status TSH 06/20/2024 09:03:43 4.24 Above high normal 0. 27-4.20 (uIU/mL) Final Performing Location [facility] [place] [address] [place] [address]
--- OUTSIDE RECORDS SUMMARY | 2024-08-01 14:20 | External Medical Summary | Summary of Care ---
Author Name Unknown Organization [facility] Address [address] [place] [address] Phone [phone] Care Team Providers Care Decorating Equipment Setter Name Role Phone oRsalinda Peterson Charu BENJY Primary Care Provider Reason for Visit * Reason Onset Date Comments Test Results Imaging Study 06/13/2024 Encounter Details Date Type Department Care Team (Late st Contact Info) Description 06/13/2024 Telephone Gastroenterology, [facility] [address] [address] Aster Dawson CRNP [address] [place] [address] Test Results Imaging Study Allergies Active Allergy [...] Fluocinolone Acetonide Scalp 0.01 % External Oil ([place]-Smoothe/FS Scalp) Apply to external ears as needed [...] Advanced directives, counseling/discussion 03/10 Overview (07/20/2008): PROJECT: #[id number], BUFFER CHROME: Angelito Chen MD SUMMARY: Patients with CHD are randomized to darapladib (Lp-PLA2 inhibitor) or placebo in addition to standard of care medications to evaluate incidence of major coronary events. CONTACTS: During normal business hours, contact Clincal Research Coordinator at appropriate clinic location, after hours on-call Clinical Research Coordinator via the [facility] [place] gristmill operator ([phone]). The study sponsor can be reached at: Prolapse of vaginal vault after hysterectomy Rectocele 09/13/2020 History of cigarette smoking 09/13/2020 Overview (09/13/2020): 30 pack year Diverticulosis of large intestine without hemorr lucy 08/02/2019 Cystocele, lateral 06/28/2018 NOEL (generalized anxiety disorder) 05/23/2018 ASCVD (arteriosclerotic cardiovascular disease) 03/09/2018 Cardiac pacemaker in situ 11/12/2017 Sick sinus syndrome 11/11/2017 Old MA (myocardial infarction) 11/11/2017 Peripheral vascular disease 10/01/2017 [...] 03/04/2021 04/13/2024 Coronary artery disease invo lving [place] coronary artery of [place] heart with unstable angina pectoris 07/18/2020 04/06/2023 Gastroesophageal reflux dise ase without esophagitis 06/11/2020 03/31/2022 Pain, dental 12/04/2017 06/24/2018 Visual loss 03/29/2017 10/01/2017 Headache, unspecified headache type 03/29/2017 11/11/2017 Neck discomfort 03/29/2017 10/01/2017 Abdominal pain, right upper quadrant 09/04/2016 12/07/2016 Chest pain, non-cardiac 08/09/2016 040 07/2018 Overview (08/10/2016): Cath C 07/2016 with no changes - old GAMING ASSOCIATE Diagonal Abnormal nuclear stress test 07/27/2016 11/11/2017 Overview (08/10/2016): anterolat ischemia on nuclear 07/2016, totally expected as she has chronic total diagnonal occlusion Moderate persistent asthma w ithout complication 04/30/2016 05/19/2022 Viral URI with cough 03/01/2016 017 Coronary artery disease invo lving [place] coronary artery of [place] heart with unstable angina pectoris 10/03/2015 06/11/2020 Overview (08/10/2016): Insulation Foreman: Amador Barry PA-C Pito Gambino Ramesh Hx Ant wall [place] at the age of 45 s/p PTCA of the LAD at [place] S/p Cath 2010, with GAMING ASSOCIATE of the diag 07/2016 [facility] [place]: moderate ischemia in a large portion of the anterior lateral and lateral myocardium.EF 76% 07/2016 [place] [facility] [place] atyp back pain and abnl nuclear stress: Patent LAD and RCA, known GAMING ASSOCIATE of the diagonal. Anxiety 05/21/2015 06/24/2018 Paraesophageal hernia 02/04/20152019 Cholelithiasis 11/05/2011 11/11/2017 Old myocardial infarct 10/11/200806/24 Overview (10/11/2008): Modified by Acute [place] Protocol #5. Follow-up of anterolateral m yocardial [...] 06/09/2002 10/11/2008 Overview (10/11/2008): Modified by Acute [place] Protocol #5. CORONARY ATHEROSCLEROSIS VESSEL NOS 02/15/2002 10/03/2015 Dyslipidemia, goal to be determined 02/15/2002 02/13/2009 Overview (02/13/2009): Per Lipid Taxonomy DIVERTICULITIS OF COLON 07/21 PURE HYPERCHOLESTEROLEM 02/19 Overview (02/28/2009): Per Lipid Taxonomy. Acute MA, anterior wall 09/20 Overview (10/11/2008): Modified by Acute [place] Protocol #5. 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 BENYJ Castaneda documented in this encounter Plan of Treatment Upcoming Encounters Date Type Department Care Team (Late st Contact Info) Description 06/20/2024 9:45 AM EDT Imaging Radiology [facility] 1st [facility] [address] [place] [address] 06/20/2024 11:00 AM EDT Office Visit Cardiology, [facility] [address] [place] [phone] Valerie Ibrahim CRNP [address] [place] [address] 06/21/2024 3:30 PM EDT Office Visit Ophthalmology, [facility] [address] [place] [address] Kenny Hector DO [address] [place] [address] 07/05/2024 1:00 PM EDT Office Visit Gastroenterology, [facility] [address] [place] [phone] Aster Dawson CRNP [address] [place] [address] 07/14/2024 8:40 AM EDT Office Visit Family Practice [facility] [address] [place] [address] Rosalinda Peterson CRNP [address] [place] [address] 08/03/2024 9:25 AM EDT Office Visit Urogynecology [facility] [address] [place] [address] Hiro Lyons MD [address] [place] [address] Nurse Rahel Ramesh [facility] [address] [place] [address] Health Maintenance Due Date Last Done Comments [...] this encounter Medical Devices Implanted Type Area Finger Grip Machine Operator Device Identifier Shelf Expiration Date Model / Serial / Lot Alloderm 2x4 Sheet [id number] ( 8 Units ) - [id number] - [id number] Implanted:Qty : 8 on 02/04/2015 by Marques Rodriguez [place] [facility] [place] - Human N/A: Esophagus LIFE CELL EMMANUEL 07/19/2016 [id number] / [id number] Stent Eso Gw [id number] - [id number] Implanted:Qty : 1 on 02/05/2015 by Marques Rodriguez MD [place] [facility] N/A: Esophagus [employer] 05/19/2017 [id number] / / [id number] documented as of this encounter Advance Directives Documents on File Type Date Recorded Patient Otologist Expl anation Power of Tax Preparer 01/22/2005 POWER OF A TTORNEY DURABLE POWER OF APPRENTICE PAINTER BRUSH * Full Code (Latest Code Status on [...] Saavedrabailey Spouse Health Care Sneha r of Tax Preparer Care Teams Decorating Equipment Setter Relationship Specialty Start Date End Date Rosalinda Peterson CRNP [address] [place] [address] PCP - General Nurse Practitioner 04/05/24 documented as of this encounter
--- OUTSIDE RECORDS SUMMARY | 2024-08-01 14:20 | External Medical Summary | Summary of Care ---
Author Name Unknown Organization [facility] Address [address] [place] [address] Phone [phone] Care Team Providers Care Plant Reliability Engineer Name Role Phone Rosalinda Peterson CLOUD ENGAGEMENT PARTNER Primary Care Provider Encounter Details Date Type Department Care Team (Late st Contact Info) Description 06/19/2024 Orders Only Outcomes Research Department [address] [place] [address] Jessica Kenny CHRA [employer]CShot Stats Research Other*[id number] Allergies Active Allergy Reactions Criticality Noted Date [...] Fluocinolone Acetonide Scalp 0.01 % External Oil ([place]-Smoothe/FS Scalp) Apply to external ears as needed [...] Advanced directives, counseling/discussion 03/10 Overview (07/20/2008): PROJECT: #[id number], SCRAPER HAND: Angelito Chen MD SUMMARY: Patients with CHD are randomized to darapladib (Lp-PLA2 inhibitor) or placebo in addition to standard of care medications to evaluate incidence of major coronary events. CONTACTS: During normal business hours, contact Clincal Research Coordinator at appropriate clinic location, after hours on-call Clinical Research Coordinator via the [facility] [place] gang drill press operator ([phone]). The study sponsor can be reached at: [...] 03/04/2021 04/13/2024 Coronary artery disease invo lving [place] coronary artery of [place] heart with unstable angina pectoris 07/18/2020 04/06/2023 Gastroesophageal reflux dise ase without esophagitis 06/11/2020 03/31/2022 Pain, dental 12/04/2017 06/24/2018 Visual loss 03/29/2017 10/01/2017 Headache, unspecified headache type 03/29/2017 11/11/2017 Neck discomfort 03/29/2017 10/01/2017 Abdominal pain, right upper quadrant 09/04/2016 12/07/2016 Chest pain, non-cardiac 08/09/2016 040 07/2018 Overview (08/10/2016): Cath C 07/2016 with no changes - old HOURLY SALES STAFF Diagonal Abnormal nuclear stress test 07/27/2016 11/11/2017 Overview (08/10/2016): anterolat ischemia on nuclear 07/2016, totally expected as she has chronic total diagnonal occlusion Moderate persistent asthma w ithout complication 04/30/2016 05/19/2022 Viral URI with cough 03/01/2016 017 Coronary artery disease invo lving [place] coronary artery of [place] heart with unstable angina pectoris 10/03/2015 06/11/2020 Overview (08/10/2016): Paper Bag Making Machinist: Amador Barry PA-C Pito Gambino [facility] Hx Ant wall [place] at the age of 45 s/p PTCA of the LAD at [place] S/p Cath 2010, with HOURLY SALES STAFF of the diag 07/2016 [facility]: moderate ischemia in a large portion of the anterior lateral and lateral myocardium.EF 76% 07/2016 Cath C for atyp back pain and abnl nuclear stress: Patent LAD and RCA, known HOURLY SALES STAFF of the diagonal. 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 Not on file Not on file Not [...] Description 06/20/2024 9:45 AM EDT Imaging Radiology [facility]st [facility] [address] [place] [address] 06/20/2024 11:00 AM EDT Office Visit Cardiology, [facility] [address] [place] [phone] Valerie Ibrahim CRNP [address] [place] [address] 06/21/2024 3:30 PM EDT Office Visit Ophthalmology, Liam [address] [place] [address] Kenny Hector DO [address] [place] [address] 07/05/2024 1:00 PM EDT Office Visit Gastroenterology, [facility] [address] [place] [address] Aster Dawson CRNP [address] [place] [address] 07/14/2024 8:40 AM EDT Office Visit Family Practice [facility] [address] [place] [address] Rosalinda Peterson CRNP [address] [place] [address] 08/03/2024 9:25 AM EDT Office Visit Urogynecology Lindsay Ramesh [address] [place] [address] Hiro Lyons MD [address] [place] [address] Nurse Rahel Ramesh Bandar [address] [place] [address] Scheduled Orders Name Type Priority Associated Diagnoses Orde r Schedule MYCODE SUBSEQUENT ADULT Lab Routine MyCode Research Other*[id number] Every 6 Months for 2 Occurrences starting 06/19/2024 until 07/09/2025 Health Maintenance Due Date Last Done Comments [...] this encounter Medical Devices Implanted Type Area Iuss Acoustic Analyst Device Identifier Shelf Expiration Date Model / Serial / Lot Alloderm 2x4 Sheet [id number] ( 8 Units ) - [id number] - [id number] Implanted:Qty : 8 on 02/04/2015 by Marques Rodriguez [place] [facility] [place] - Human N/A: Esophagus LIFE CELL EMMANUEL 07/19/2016 [id number] / [id number] / [id number] Stent Eso Gw [id number] - [id number] Implanted:Qty : 1 on 02/05/2015 by Marques Rodriguez MD [place] [facility] N/A: Esophagus [employer]US INC 05/19/2017 [id number] / / [id number] documented as of this encounter Visit Diagnoses Diagnosis MyCode Research Other*[id number] Screening mammogram for breast cancer documented in this encounter Advance Directives Documents on File Type Date Recorded Patient Racing Secretary And Handicapper Expl anation Power of Ballet Company Artistic Director 01/22/2005 POWER OF A TTORNEY DURABLE POWER OF BAKER HELPER * Full Code (Latest Code Status on [...] Name Relationship Healthcare Agent Relationship Communication [facility] Sneha r of Ballet Company Artistic Director Care Teams Plant Reliability Engineer Relationship Specialty Start Date End Date Rosalinda Peterson CRNP [address] [place] [address] PCP - General Nurse Practitioner 04/05/24 documented as of this encounter
--- OUTSIDE RECORDS SUMMARY | 2024-08-01 14:20 | External Medical Summary | Summary of Care ---
Author Name Unknown Organization [facility] Address [address] [place] [address] Phone [phone] Care Team Providers Care Certified Technician Name Role Phone Rosalinda Peterson Charu BENJY Primary Care Provider Encounter Details Date Type Department Care Team (Late st Contact Info) Description 05/03/2024 Telephone Urogynecology [facility] [address] [place] [address] Hiro Lyons MD [address] [place] [address] Allergies Active Allergy Reactions Criticality Noted Date Comments Adhesive Tape 05/27/2021 Other reaction(s): Rash Chlorhexidine Low 12/30/2020 Other reaction(s): rash, itching Escitalopram Oxalate Itching,Other (Please comment) 09/07/2011 Jittery Ibuprofen 05/19/2022 Swelling, redness, hives Latex 03/18/2011 Rash Paroxetine Hcl 10/24/2015 Foggy/visual impairment documented as of this encounter (statuses as of 05/31/2024) Medications TYLENOL ARTHRITIS PAIN 650 MG PO TBCR Take 1 Tablet by mouth daily. Active Cholecalciferol (VITAMIN D) 2000 UNITS Capsule Take 2,000 Units by mouth daily. Active loperamide (IMODIUM) 2 MG Capsule Take 1 Capsule by mouth as needed for Diarrhea. Active aspirin enteric coated 81 MG TBECIndications:ta kes in the evening Take 1 Tablet by mouth at bedtime. Active Cyanocobalamin (B-12) 500 MCG TABS Take by mouth daily. Taking daily Active Benefiber Oral Powder Take [...] Fluocinolone Acetonide Scalp 0.01 % External Oil ([place]-Smoothe/FS Scalp) Apply to external ears as needed [...] Tablet (Lasix)Indications :Lower extremity edema Take one-half Tablets by mouth in the morning. 100 Tablet 3 5 Active Potassium Chloride ER 10 MEQ [...] g 3 05/04/2024 2:18 PM EST Active documented as of this encounter (statuses as of 05/31/2024) Active Problems Problem Noted Date Diagnosed Date Chronic diastolic congestive heart failure 04/14 Heart failure, diastolic, with acute decompensat ion 04/14/2024 Leg mass, right 04/13/2024 Leg cramping 07/12/2023 Leg swelling 08/26/2022 Advanced directives, counseling/discussion 03/10 Overview (07/20/2008): PROJECT: #[id number], WIPING CLOTH CUTTER: Angelito Chen MD SUMMARY: Patients with CHD are randomized to darapladib (Lp-PLA2 inhibitor) or placebo in addition to standard of care medications to evaluate incidence of major coronary events. CONTACTS: During normal business hours, contact Clincal Research Coordinator at appropriate clinic location, after hours on-call Clinical Research Coordinator via the [facility] news wire photo operator ([phone]). The study sponsor can be reached at: Prolapse of vaginal vault after hysterectomy Rectocele 09/13/2020 History of cigarette smoking 09/13/2020 Overview (09/13/2020): 30 pack year Diverticulosis of large intestine without hemorr lucy 08/02/2019 Cystocele, lateral 06/28/2018 NOEL (generalized anxiety disorder) 05/23/2018 ASCVD (arteriosclerotic cardiovascular disease) 03/09/2018 Cardiac pacemaker in situ 11/12/2017 Sick sinus syndrome 11/11/2017 Old FL (myocardial infarction) 11/11/2017 Peripheral vascular disease 10/01/2017 HTN, goal below 130/80 10/03/2015 Anemia due to vitamin B12 deficiency 08/26/2015 Vitamin D deficiency 08/26/2015 DDD (degenerative disc disease), cervical 2013 Gastroesophageal reflux disease with esophagitis 12/21/2011 IBS (irritable bowel syndrome) 06/11/2011 Dyslipidemia 02/28/2009 Overview (02/28/2009): Per Lipid Taxonomy. Generalized osteoarthritis Rosacea documented as of this encounter (statuses as of 05/31/2024) Resolved Problems Problem Noted Date Diagnosed Date Resolved Date Depression, unspecified 12/23/2022 12/0 06/2022 Migraine with aura, not intr actable, without status migrainosus 07/07/2022 07/05/2023 Hematuria, gross 03/04/2021 04/13/2024 History of UTI 03/04/2021 04/13/2024 Coronary artery disease invo lving [place] coronary artery of [place] heart with unstable angina pectoris 07/18/2020 04/06/2023 Gastroesophageal reflux dise ase without esophagitis 06/11/2020 03/31/2022 Pain, dental 12/04/2017 06/24/2018 Visual loss 03/29/2017 10/01/2017 Headache, unspecified headache type 03/29/2017 11/11/2017 Neck discomfort 03/29/2017 10/01/2017 Abdominal pain, right upper quadrant 09/04/2016 12/07/2016 Chest pain, non-cardiac 08/09/2016 04/0 07/2018 Overview (08/10/2016): Cath C 07/2016 with no changes - old DIETITIAN HELPER Diagonal Abnormal nuclear stress test 07/27/2016 11/11/2017 Overview (08/10/2016): anterolat ischemia on nuclear 07/2016, totally expected as she has chronic total diagnonal occlusion Moderate persistent asthma w ithout complication 04/30/2016 05/19/2022 Viral URI with cough 03/01/2016 017 Coronary artery disease invo lving [place] coronary artery of [place] heart with unstable angina pectoris 10/03/2015 06/11/2020 Overview (08/10/2016): Cd Reactor Operator Head: Amador Barry PA-C Hx Ant wall [place] at the age of 45 s/p PTCA of the LAD at [place] S/p Cath 2010, with DIETITIAN HELPER of the diag 07/2016 [facility]: moderate ischemia in a large portion of the anterior lateral and lateral myocardium.EF 76% 07/2016 Cath [facility] [place] atyp back pain and abnl nuclear stress: Patent LAD and RCA, known DIETITIAN HELPER of the diagonal. Anxiety 05/21/2015 06/24/2018 Paraesophageal hernia 02/04/20152019 Cholelithiasis 11/05/2011 11/11/2017 Old myocardial infarct 10/11/200806/24 Overview (10/11/2008): Modified by Acute [place] Protocol #5. Follow-up of anterolateral m yocardial [...] 06/09/2002 10/11/2008 Overview (10/11/2008): Modified by Acute [place] Protocol #5. CORONARY ATHEROSCLEROSIS VESSEL NOS 02/15/2002 10/03/2015 Dyslipidemia, goal to be determined 02/15/2002 02/13/2009 Overview (02/13/2009): Per Lipid Taxonomy DIVERTICULITIS OF COLON 07/21 PURE HYPERCHOLESTEROLEM 02/19 Overview (02/28/2009): Per Lipid Taxonomy. Acute [place], anterior wall 09/20 Overview (10/11/2008): Modified by Acute [place] Protocol #5. Need for prophylactic hormon e replacement therapy (postmenopausal) 12/21/2012 HTN, goal below 140/90 07/14 /2016 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, including hip 11/11/2017 documented as of this encounter (statuses as of 05/31/2024) Immunizations Name Administration Dates Next Due COVID-19 mRNA, LNP-s, No Pre serve, 2-Dose Series ([employer]) 02/11/2021,06/10/2020,05/15/2020 COVID-19, MRNA-LNP, PF, 30 M CG/0.3 mL, 12 YRS AND ABOVE, IM ([employer]) 12/10/2023,06/17/2023 Covid-19, Mrna, Lnp-s, Pf, B ivalent, 30 Mcg, IM, 12 yrs and above ([employer]) 12/04/2021 H1N1 2009 Influenza, IM 05/29/2009 Pneumococcal [...] money to buy more. 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 (5 years old or older) Answer Entry Date Author No 02/04/2015 8:30 PM EST Kaylene Walsh RN documented in this encounter Miscellaneous Notes * Telephone Encounter - Theodora Duarte LPN - 05/03/2024 3:01 PM EST Spoke with pt via TC. Made her aware of positive yeast results and to diamond picker Diflucan from her pharmacy. Pt stated understanding. documented in this encounter Plan of Treatment Upcoming Encounters Date Type Department Care Team (Late st Contact Info) Description 06/13/2024 10:30 AM EDT Office Visit Gastroenterology, [facility] [address] [address] Aster Dawson CRNP [address] [place] [address] 06/20/2024 9:45 AM EDT Imaging Radiology [facility] [address] [facility] [address] [phone] 06/20/2024 11:00 AM EDT Office Visit Cardiology, [facility] [address] [place] [address] Valerie Ibrahim CRNP [address] [place] [address] 06/21/2024 3:30 PM EDT Office Visit Ophthalmology, [facility] [address] [address] Kenny Hector DO [address] [address] 07/14/2024 1:40 PM EDT Office Visit Family Practice [facility] [address] [place] [address] Rosalinda Peterson CRNP [address] [place] [address] 08/03/2024 9:25 AM EDT Office Visit Urogynecology [facility] [address] [place] [address] Hiro Lyons MD [address] [place] [address] Nurse Rahel Ramesh [facility] [address] [place] [address] Health Maintenance Due Date Last Done Comments [...] this encounter Medical Devices Implanted Type Area Lacquer Shader Device Identifier Shelf Expiration Date Model / Serial / Lot Alloderm 2x4 Sheet [id number] ( 8 Units ) - [id number] - [id number] Implanted:Qty : 8 on 02/04/2015 by Marques Rodriguez MD [place] [facility] [place] - Human N/A: Esophagus LIFE CELL EMMANUEL 07/19/2016 [id number] / [id number] / [id number] Stent Eso Gw [id number] - [id number] Implanted:Qty : 1 on 02/05/2015 by Marques Rodriguez MD [place] [facility] N/A: Esophagus [employer]US INC 05/19/2017 [id number] / / [id number] documented as of this encounter Advance Directives Documents on File Type Date Recorded Patient Bar Hostess Expl anation Power of Division Controller 01/22/2005 POWER OF A TTORNEY DURABLE POWER OF RESEARCH CONSULTANT * Full Code (Latest Code Status on [...] Shayla Spouse Health Care Sneha r of Division Controller Care Teams Certified Technician Relationship Specialty Start Date End Date Rosalinda Peterson CRNP [address] [place] [address] PCP - General Nurse Practitioner 04/05/24 documented as of this encounter
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
--- OUTSIDE RECORDS SUMMARY | 2024-08-01 14:20 | External Medical Summary | Summary of Care ---
Author Name Unknown Organization [facility] Address [address] [place] [address] Phone [phone] Care Team Providers Care Steamblaster Name Role Phone Rosalinda Peterson Charu BENJY Primary Care Provider Reason for Visit * Reason Comments Medication Refill Encounter Details Date Type Department Care Team (Late st Contact Info) Description 05/22/2024 Refill Gastroenterology, [facility] [address] [place] [address] Aster Shankar CRNP [address] [place] [address] Irritable bowel syndrome with diarrhea Allergies Active Allergy Reactions Criticality Noted Date Comments Adhesive Tape 05/27/2021 Other reaction(s): Rash Chlorhexidine Low 12/30/2020 Other reaction(s): rash, itching Escitalopram Oxalate Itching,Other (Please comment) 09/07/2011 Jittery Ibuprofen 05/19/2022 Swelling, redness, hives Latex 03/18/2011 Rash Paroxetine Hcl 10/24/2015 Foggy/visual impairment documented as of this encounter (statuses as of 05/22/2024) Medications TYLENOL ARTHRITIS PAIN 650 MG PO [...] 75 Tablet 2 4 8:47 AM EST 01/01/20 23 Active Probiotic & Acidophilus Ex St Oral [...] BY MOUTH EVERY DAY 90 Capsule 3 4 4:11 PM EST 09/06/19 24 025 Active predniSONE 20 MG Oral Tablet (Deltasone)Indicat ions:Acute maxillary sinusitis, recurrence not specified Take 1 Tablet by mouth in the morning. Uses as a rescue kit. 5 Tablet 09/17/19 24 Active tiZANidine HCl 2 MG Oral Tablet (Zanaflex) Take 1 table by mouth 3 times a day as needed for muscle spasms 30 Tablet 1 09/28/19 24 Active Estradiol 0.5 MG Oral Tablet (Estrace)Indicatio ns:Need for prophylactic hormone replacement therapy (postmenopausal) TAKE ONE TABLET BY MOUTH EVERY DAY ON SUNDAYS, TUESDAYS, THURSDAYS AND SATURDAYS 90 Tablet 2 5 1:35 PM EST 10/22/19 24 Active busPIRone HCl 5 MG Oral Tablet (Buspar)Indication s:Anxiety TAKE ONE TABLET BY MOUTH TWICE A DAY 180 Tablet 3 4 4:57 PM EST 11/30/19 24 025 Active Bismuth Subsalicylate 262 MG/15ML Oral Suspension (Pepto-Bismol) Take 30 mL by mouth every 4 hours as needed. Active Fluocinolone Acetonide Scalp 0.01 % External Oil ([place]-Smoothe/FS Scalp) Apply to external ears as needed for itching. 118.28 mL 4 2:17 PM EDT 01/12/20 24 Active Clotrimazole-Betam ethasone 1-0.05 % External Cream (Lotrisone) Apply topically to affected area 2 times a day. 45 g 4 12:39 PM EST 02/08/20 24 Active Atenolol 50 MG Oral Tablet (Tenormin)Indicati ons:ASCVD (arteriosclerotic cardiovascular disease) TAKE ONE TABLET BY MOUTH TWICE A DAY 180 Tablet 3 5 10:00 AM EST 02/20/20 24 025 Active metroNIDAZOLE 1 % External Gel (Metrogel)Indicati ons:Rosacea Apply to face daily after washing with soap and water and then use SPF 30 daily 60 g 2 5 3:14 PM EST 04/05/19 25 Active Atorvastatin Calcium 20 MG Oral Tablet (Lipitor) Take 1 Tablet by mouth at bedtime. 90 Tablet 3 5 4:17 PM EST 04/13/19 25 Active LORazepam 0.5 MG Oral Tablet (Ativan)Indication s:NOEL (generalized anxiety disorder) Take 1 Tablet by mouth daily as needed for Anxiety. 90 Tablet 04/13/19 25 Active Furosemide 20 MG Oral Tablet (Lasix)Indications :Lower extremity edema Take one-half Tablets by mouth in the morning. 100 Tablet 3 04/13/19 25 Active Potassium Chloride ER 10 MEQ Oral Capsule Extended Release Take 1 Capsule by mouth in the morning. 100 Capsule 3 5 2:15 PM EST 04/18/19 25 Active cycloSPORINE 0.05 % Ophthalmic Emulsion (Restasis) Instill 1 Drop into both eyes in the morning and 1 Drop before bedtime. 60 Each 11 5 5:47 PM EST 04/28/19 25 026 Active Estradiol 0.1 MG/GM Vaginal Cream (Estrace) Apply pea sized amount (0.5 gm) vaginally twice a week at bedtime 42.5 g 3 5 2:18 PM EST 05/02/19 25 Active Dicyclomine HCl 10 MG Oral Capsule (Bentyl)Indication s:Irritable bowel syndrome with diarrhea Take 1 Capsule by mouth 2 times a day as needed for abdominal cramping or diarrhea 180 Capsule 05/23/19 25 Active Dicyclomine HCl 10 MG Oral Capsule (Bentyl)Indication s:Irritable bowel syndrome with diarrhea Take 1 Capsule by mouth 2 times a day as needed for abdominal cramping or diarrhea 60 Capsule 3 4 4:11 PM EST 12/09/19 24 025 Discontin ued(Refil l) documented as of this encounter (statuses as of 05/22/2024) Active Problems Problem Noted Date Diagnosed Date Chronic diastolic congestive heart failure 04/14 Heart failure, diastolic, with acute decompensat ion 04/14/2024 Leg mass, right 04/13/2024 Leg cramping 07/12/2023 Leg swelling 08/26/2022 Advanced directives, counseling/discussion 03/10 Overview (07/20/2008): PROJECT: #[id number], OIL HEATERMAN: Angelito Chen MD SUMMARY: Patients with CHD are randomized to darapladib (Lp-PLA2 inhibitor) or placebo in addition to standard of care medications to evaluate incidence of major coronary events. CONTACTS: During normal business hours, contact Clincal Research Coordinator at appropriate clinic location, after hours on-call Clinical Research Coordinator via the [facility] [place] [place] hospital kieselguhr regenerator operator ([phone]). The study sponsor can be reached at: Prolapse of vaginal vault after hysterectomy Rectocele 09/13/2020 History of cigarette smoking 09/13/2020 Overview (09/13/2020): 30 pack year Diverticulosis of large intestine without hemorr lucy 08/02/2019 Cystocele, lateral 06/28/2018 NOEL (generalized anxiety disorder) 05/23/2018 ASCVD (arteriosclerotic cardiovascular disease) 03/09/2018 Cardiac pacemaker in situ 11/12/2017 Sick sinus syndrome 11/11/2017 Old [place] (myocardial infarction) 11/11/2017 Peripheral vascular disease 10/01/2017 HTN, goal below 130/80 10/03/2015 Anemia due to vitamin B12 deficiency 08/26/2015 Vitamin D deficiency 08/26/2015 DDD (degenerative disc disease), cervical 2013 Gastroesophageal reflux disease with esophagitis 12/21/2011 IBS (irritable bowel syndrome) 06/11/2011 Dyslipidemia 02/28/2009 Overview (02/28/2009): Per Lipid Taxonomy. Generalized osteoarthritis Rosacea documented as of this encounter (statuses as of 05/22/2024) Resolved Problems Problem Noted Date Diagnosed Date Resolved Date Depression, unspecified 12/23/2022 120 06/2022 Migraine with aura, not intr actable, without status migrainosus 07/07/2022 07/05/2023 Hematuria, gross 03/04/2021 04/13/2024 History of UTI 03/04/2021 04/13/2024 Coronary artery disease invo lving [place] coronary artery of [place] heart with unstable angina pectoris 07/18/2020 04/06/2023 Gastroesophageal reflux dise ase without esophagitis 06/11/2020 03/31/2022 Pain, dental 12/04/2017 06/24/2018 Visual loss 03/29/2017 10/01/2017 Headache, unspecified headache type 03/29/2017 11/11/2017 Neck discomfort 03/29/2017 10/01/2017 Abdominal pain, right upper quadrant 09/04/2016 12/07/2016 Chest pain, non-cardiac 08/09/2016 0407/2018 Overview (08/10/2016): Cath C 07/2016 with no changes - old AUTO INSPECTOR Diagonal Abnormal nuclear stress test 07/27/2016 11/11/2017 Overview (08/10/2016): anterolat ischemia on nuclear 07/2016, totally expected as she has chronic total diagnonal occlusion Moderate persistent asthma w ithout complication 04/30/2016 05/19/2022 Viral URI with cough 03/01/2016 017 Coronary artery disease invo lving [place] coronary artery of [place] heart with unstable angina pectoris 10/03/2015 06/11/2020 Overview (08/10/2016): Planimeter Operator: Amador Barry PA-C [facility] Hx Ant wall [place] at the age of 45 s/p PTCA of the LAD at [place] S/p Cath 2010, with AUTO INSPECTOR of the diag 07/2016 [facility]: moderate ischemia in a large portion of the anterior lateral and lateral myocardium.EF 76% 07/2016 Cath C for atyp back pain and abnl nuclear stress: Patent LAD and RCA, known AUTO INSPECTOR of the diagonal. Anxiety 05/21/2015 06/24/2018 Paraesophageal hernia 02/04/20152019 Cholelithiasis 11/05/2011 11/11/2017 Old myocardial infarct 10/11/200806/24 Overview (10/11/2008): Modified by Acute [place] Protocol #5. Follow-up of anterolateral m yocardial [...] 06/09/2002 10/11/2008 Overview (10/11/2008): Modified by Acute [place] Protocol #5. CORONARY ATHEROSCLEROSIS VESSEL NOS 02/15/2002 10/03/2015 Dyslipidemia, goal to be determined 02/15/2002 02/13/2009 Overview (02/13/2009): Per Lipid Taxonomy DIVERTICULITIS OF COLON 07/21 PURE HYPERCHOLESTEROLEM 02/19 Overview (02/28/2009): Per Lipid Taxonomy. Acute [place], anterior wall 09/20 Overview (10/11/2008): Modified by Acute [place] Protocol #5. 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 Not on file Not [...] encounter Miscellaneous Notes * Telephone Encounter - Tom Louie RPh - 05/22/2024 3:06 PM ESTSigned Prescriptions: Disp Refills Dicyclomine HCl 10 MG Oral Capsule (Bentyl)180 Ca*0 Sig: Take 1 Capsule by mouth 2 times a day as needed for abdominal cramping or diarrheaAuthorizing Provider: ASTER SHANKAR User: TOM LOUIE * Telephone Encounter - Justin Lam - 05/22/2024 9:29 AM ESTPending Prescriptions: Disp Refills Dicyclomine HCl 10 MG Oral Capsule (Bentyl)60 Cap*3 Sig: Take 1 Capsule by mouth 2 times a day as needed for abdominal cramping or diarrhea * Telephone Encounter - Justin Lam - 05/22/2024 9:27 AM EST Did you pend patient's preferred pharmacy and medication before forwarding?yes Pharmacy: [facility] Pending Prescriptions: Disp Refills Dicyclomine HCl 10 MG Oral Capsule (Benty*60 Cap*3 Sig: Take 1 Capsule by mouth 2 times a day as needed for abdominal cramping or diarrhea Last Visit: 12/09/2023 (in office), Visit date not found (telemedicine) Next Visit: 06/13/2024 If no future appointments scheduled, and last appointment is greater than a year ago, please schedule patient for a follow-up appointment Last date the medication was ordered: 12/09/2023 Is this request for a controlled substance?No Urine Drug Screen:No results found. However, due to the size of the patient record, not all encounters were searched. Please check Results Review for a complete set of results. Patient Phone Numbers Labs: Lab Results Component Value Date/Time CREAT 0.8 03/17/2024 08:06 AM CREAT 0.61 11/27/2020 12:00 AM CREAT 0.9 01/23/2020 02:05 PM POTASSIUM 4.2 03/17/2024 08:06 AM POTASSIUM 3.6 11/27/2020 12:00 AM POTASSIUM 4.4 01/23/2020 02:05 PM TSH 2.84 02/09/2023 04:47 PM TSH 2.32 01/23/2020 02:05 PM LDL 95 03/17/2024 08:06 AM LDL 105 01/30/2020 10:00 AM LDL NOT APPLICABLE 01/30/2020 10:00 AM ALT 13 03/17/2024 08:06 AM ALT 11 10/10/2019 01:58 PM HGBA1C 5.4 01/30/2020 09:59 AM documented in this encounter Plan of Treatment Upcoming Encounters Date Type Department Care Team (Late st Contact Info) Description 06/13/2024 10:30 AM EDT Office Visit Gastroenterology, [facility] [address] [place] [address] Aster Shankar CRNP [address] [place] [address] 06/20/2024 9:45 AM EDT [facility] [address] [place] [phone] 06/20/2024 11:00 AM EDT Office Visit Cardiology, [facility] [address] [place] [address] Valerie Ibrahim CRNP [address] [place] [address] 06/21/2024 3:30 PM EDT Office Visit Ophthalmology, [place] [address] [address] Kenny Hector DO [address] [address] 07/14/2024 11:40 AM EDT Office Visit Family Practice [facility] [address] [address] Rosalinda Peterson CRNP [address] [place] [address] 08/03/2024 9:25 AM EDT Office Visit Urogynecology [facility] [address] [place] [address] Hiro Lyons MD [address] [place] [address] Nurse Rahel Ramesh [address] [place] [address] Health Maintenance Due Date Last Done Comments [...] this encounter Medical Devices Implanted Type Area Tube Skiver Device Identifier Shelf Expiration Date Model / Serial / Lot Alloderm 2x4 Sheet [id number] ( 8 Units ) - [id number] - [id number] Implanted:Qty : 8 on 02/04/2015 by Marques Rodriguez MD at OR [facility] [place] [place] Tissue - Human N/A: Esophagus LIFE CELL EMMANUEL 07/19/2016 [id number] / [id number] Stent Eso Gw [id number] - [id number] Implanted:Qty : 1 on 02/05/2015 by Marques Rodriguez MD at OR [facility] [place] [place] N/A: Esophagus [employer]US [employer] 05/19/2017 [id number] / / [id number] documented as of this encounter Visit Diagnoses Diagnosis Irritable bowel syndrome with diarrhea Irritable bowel syndrome Screening mammogram for breast cancer documented in this encounter Advance Directives Documents on File Type Date Recorded Patient Director Of Analytical Development Expl anation Power of Emergency Medical Tech 01/22/2005 POWER OF A TTORNEY DURABLE POWER OF ENTERPRISE INTEGRATION ARCHITECT * Full Code (Latest Code Status on [...] Mcguire Spouse Health Care Sneha r of Emergency Medical Tech Care Teams Steamblaster Relationship Specialty Start Date End Date Rosalinda Peterson CRNP [address] [address] PCP - General Nurse Practitioner 04/05/24 documented as of this encounter
--- OUTSIDE RECORDS SUMMARY | 2024-08-01 14:20 | External Medical Summary | Summary of Care ---
Author Name Unknown Organization [facility] Address [address] [place] [address] Phone [phone] Care Team Providers Care Tree Fruit And Nut Crops Farmer Name Role Phone Rosalinda Peterson Charu BENJY Primary Care Provider Reason for Visit * Reason Onset Date Comments Test Results Imaging Study 06/13/2024 Encounter Details Date Type Department Care Team (Late st Contact Info) Description 06/13/2024 Telephone Gastroenterology, [facility] [address] [place] [address] Aster Dawson CRNP [address] [place] [address] Test Results Imaging Study Allergies Active Allergy Reactions Criticality Noted Date Comments Adhesive Tape 05/27/2021 Other reaction(s): Rash Chlorhexidine Low 12/30/2020 Other reaction(s): rash, itching Escitalopram Oxalate Itching,Other (Please comment) 09/07/2011 Jittery Ibuprofen 05/19/2022 Swelling, redness, hives Latex 03/18/2011 Rash Paroxetine Hcl 10/24/2015 Foggy/visual impairment documented as of this encounter (statuses as of 06/14/2024) Medications TYLENOL ARTHRITIS PAIN 650 MG PO [...] Fluocinolone Acetonide Scalp 0.01 % External Oil ([place]-Smoothe/FS Scalp) Apply to external ears as needed [...] as of this encounter (statuses as of 06/14/2024) Active Problems Problem Noted Date Diagnosed Date Chronic diastolic congestive heart failure 04/14 Heart failure, diastolic, with acute decompensat ion 04/14/2024 Leg mass, right 04/13/2024 Leg cramping 07/12/2023 Leg swelling 08/26/2022 Advanced directives, counseling/discussion 03/10 Overview (07/20/2008): PROJECT: #[id number], SHIP ERECTOR: Angelito Chen MD SUMMARY: Patients with CHD are randomized to darapladib (Lp-PLA2 inhibitor) or placebo in addition to standard of care medications to evaluate incidence of major coronary events. CONTACTS: During normal business hours, contact Clincal Research Coordinator at appropriate clinic location, after hours on-call Clinical Research Coordinator via the [facility] hospital bias machine operator helper ([phone]). The study sponsor can be reached at: Prolapse of vaginal vault after hysterectomy Rectocele 09/13/2020 History of cigarette smoking 09/13/2020 Overview (09/13/2020): 30 pack year Diverticulosis of large intestine without hemorr lucy 08/02/2019 Cystocele, lateral 06/28/2018 NOEL (generalized anxiety disorder) 05/23/2018 ASCVD (arteriosclerotic cardiovascular disease) 03/09/2018 Cardiac pacemaker in situ 11/12/2017 Sick sinus syndrome 11/11/2017 Old [place] (myocardial infarction) 11/11/2017 Peripheral vascular disease 10/01/2017 HTN, goal below 130/80 10/03/2015 Anemia due to vitamin B12 deficiency 08/26/2015 Vitamin D deficiency 08/26/2015 DDD (degenerative disc disease), cervical 2013 Gastroesophageal reflux disease with esophagitis 12/21/2011 IBS (irritable bowel syndrome) 06/11/2011 Dyslipidemia 02/28/2009 Overview (02/28/2009): Per Lipid Taxonomy. Generalized osteoarthritis Rosacea documented as of this encounter (statuses as of 06/14/2024) Resolved Problems Problem Noted Date Diagnosed Date Resolved Date Depression, unspecified 12/23/2022 1206/2022 Migraine with aura, not intr actable, without status migrainosus 07/07/2022 07/05/2023 Hematuria, gross 03/04/2021 04/13/2024 History of UTI 03/04/2021 04/13/2024 Coronary artery disease invo lving [place] coronary artery of [place] heart with unstable angina pectoris 07/18/2020 04/06/2023 Gastroesophageal reflux dise ase without esophagitis 06/11/2020 03/31/2022 Pain, dental 12/04/2017 06/24/2018 Visual loss 03/29/2017 10/01/2017 Headache, unspecified headache type 03/29/2017 11/11/2017 Neck discomfort 03/29/2017 10/01/2017 Abdominal pain, right upper quadrant 09/04/2016 12/07/2016 Chest pain, non-cardiac 08/09/2016 040 07/2018 Overview (08/10/2016): Cath C 07/2016 with no changes - old [employer] REVENUE OFFICER Diagonal Abnormal nuclear stress test 07/27/2016 11/11/2017 Overview (08/10/2016): anterolat ischemia on nuclear 07/2016, totally expected as she has chronic total diagnonal occlusion Moderate persistent asthma w ithout complication 04/30/2016 05/19/2022 Viral URI with cough 03/01/2016 017 Coronary artery disease invo lving [place] coronary artery of [place] heart with unstable angina pectoris 10/03/2015 06/11/2020 Overview (08/10/2016): Hardware Installation Coordinator: Amador Barry PA-C [facility] Hx Ant wall [place] at the age of 45 s/p PTCA of the LAD at [place] S/p Cath 2010, with U[employer]. REVENUE OFFICER of the diag 07/2016 [facility]: moderate ischemia in a large portion of the anterior lateral and lateral myocardium.EF 76% 07/2016 Cath C for atyp back pain and abnl nuclear stress: Patent LAD and RCA, known [employer] REVENUE OFFICER of the diagonal. Anxiety 05/21/2015 06/24/2018 Paraesophageal hernia 02/04/20152019 Cholelithiasis 11/05/2011 11/11/2017 Old myocardial infarct 10/11/200806/24 Overview (10/11/2008): Modified by Acute [place] Protocol #5. Follow-up of anterolateral m yocardial [...] 06/09/2002 10/11/2008 Overview (10/11/2008): Modified by Acute [place] Protocol #5. CORONARY ATHEROSCLEROSIS VESSEL NOS 02/15/2002 10/03/2015 Dyslipidemia, goal to be determined 02/15/2002 02/13/2009 Overview (02/13/2009): Per Lipid Taxonomy DIVERTICULITIS OF COLON 07/21 PURE HYPERCHOLESTEROLEM 02/19 Overview (02/28/2009): Per Lipid Taxonomy. Acute [place], anterior wall 09/20 Overview (10/11/2008): Modified by Acute [place] Protocol #5. 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 (5 years old or older) Answer Date of Assessment Author No 02/04/2015 8:30 PM EST Kaylene Walsh RN * Do you have difficulty dressing [...] Description 06/20/2024 9:45 AM EDT Imaging Radiology [facility] 1st Floor, [place] [address] [place] [phone] 06/20/2024 11:00 AM EDT Office Visit Cardiology, [facility] [address] [place] [phone] Valerie Ibrahim CRNP [address] [place] [address] 06/21/2024 3:30 PM EDT Office [address] [place] [address] Kenny Hector DO [address] [address] 07/14/2024 8:40 AM EDT Office Visit [facility] [address] [place] [address] Rosalinda Peterson CRNP [address] [place] [address] 08/03/2024 9:25 AM EDT Office Visit Urogynecology [facility] [address] [facility] [place] [address] Hiro Lyons MD [address] [place] [address] Nurse Rahel Ramesh [facility] [address] [facility] [place] [address] Health Maintenance Due Date Last Done Comments [...] this encounter Medical Devices Implanted Type Area Probe Operator Device Identifier Shelf Expiration Date Model / Serial / Lot Alloderm 2x4 Sheet [id number] ( 8 Units ) - [id number] - [id number] Implanted:Qty : 8 on 02/04/2015 by Marques Rodriguez MD at OR [facility] [place] Tissue - Human N/A: Esophagus LIFE CELL EMMANUEL 07/19/2016 [id number] / [id number] / [id number] Stent Eso Gw [id number] - [id number] Implanted:Qty : 1 on 02/05/2015 by Marques Rodriguez MD at OR [facility] [place] N/A: Esophagus [employer] 05/19/2017 [id number] / / [id number] documented as of this encounter Advance Directives Documents on File Type Date Recorded Patient Brush Loader And Handle Attacher Expl anation Power of Sheet Metal Worker Apprentice 01/22/2005 POWER OF A TTORNEY DURABLE POWER OF RESORT MANAGER * Full Code (Latest Code Status on [...] Saavedrabailey Spouse Health Care Sneha r of Sheet Metal Worker Apprentice Care Teams Tree Fruit And Nut Crops Farmer Relationship Specialty Start Date End Date Rosalinda Peterson CRNP [address] [address] PCP - General Nurse Practitioner 04/05/24 documented as of this encounter
--- OUTSIDE RECORDS SUMMARY | 2024-08-01 14:21 | External Medical Summary | Summary of Care ---
Author Name Unknown Organization [facility] Address [address] [place] [address] Phone [phone] Care Team Providers Care Production Supply Equipment Tender Name Role Phone Rosalinda Peterson Charu BENJY Primary Care Provider Reason for Referral * Precert (Within 10 days (routine)) - Authorized Specialty Diagnoses / Procedures Referred By Jass brooks Referred To Contact Radiology Diagnoses Right lower quadrant abdominal pain Procedures CT ABD/PELVIS W IV CONTRAST - WO ORAL CONTRAST CT ABD/PELVIS W WO IV CONTRAST - WO ORAL CONT Hiro Lyons MD [address] [place] [address] Phone: tel: fax: Referral ID Status Reason Start Date Expiration Date V isits Requested Visits Authorized [id number] Authorized 05/02/2024 999 999 Reason for Visit * Reason Comments Follow Up Encounter Details Date Type Department Care Team (Late st Contact Info) Description 05/02/2024 3:30 PM EST Office [facility] [address] [place] [address] Hiro Lyons MD [address] [phone] Right lower quadrant abdominal pain*; Atrophic vaginitis Allergies Active Allergy Reactions Criticality Noted Date Comments Adhesive Tape 05/27/2021 Other reaction(s): Rash Chlorhexidine Low 12/30/2020 Other reaction(s): rash, itching Escitalopram Oxalate Itching,Other (Please comment) 09/07/2011 Jittery Ibuprofen 05/19/2022 Swelling, redness, hives Latex 03/18/2011 Rash Paroxetine Hcl 10/24/2015 Foggy/visual impairment documented as of this encounter (statuses as of 05/03/2024) Medications TYLENOL ARTHRITIS PAIN 650 MG PO [...] 90 Capsule 3 4 4:11 PM EST 024 2024 Active predniSONE 20 MG Oral Tablet (Deltasone)Indica tions:Acute maxillary sinusitis, recurrence not specified Take 1 Tablet by mouth in the morning. Uses as a rescue kit. 5 Tablet 024 Active tiZANidine HCl 2 MG Oral Tablet (Zanaflex) Take 1 table by mouth 3 times a day as needed for muscle spasms 30 Tablet 1 024 Active Estradiol 0.5 MG Oral Tablet (Estrace)Indicati ons:Need for prophylactic hormone replacement therapy (postmenopausal) TAKE ONE TABLET BY MOUTH EVERY DAY ON SUNDAYS, TUESDAYS, THURSDAYS AND SATURDAYS 90 Tablet 2 5 1:35 PM EST 024 Active busPIRone HCl 5 MG Oral Tablet (Buspar)Indicatio ns:Anxiety TAKE ONE TABLET BY MOUTH TWICE A DAY 180 Tablet 3 4 4:57 PM EST 024 2024 Active Dicyclomine HCl 10 MG Oral Capsule (Bentyl)Indicatio ns:Irritable bowel syndrome with diarrhea Take 1 Capsule by mouth 2 times a day as needed for abdominal cramping or diarrhea 60 Capsule 3 4 4:11 PM EST 024 Active Bismuth Subsalicylate 262 MG/15ML Oral Suspension (Pepto-Bismol) Take 30 mL by mouth every 4 hours as needed. Active Fluocinolone Acetonide Scalp 0.01 % External Oil (Murdock-Smoothe/FS Scalp) Apply to external ears as needed for itching. 118.28 mL 4 2:17 PM EDT 024 Active Clotrimazole-Beta methasone 1-0.05 % External Cream (Lotrisone) Apply topically to affected area 2 times a day. 45 g 4 12:39 PM EST 024 Active Atenolol 50 MG Oral Tablet (Tenormin)Indicat ions:ASCVD (arteriosclerotic cardiovascular disease) TAKE ONE TABLET BY MOUTH TWICE A DAY 180 Tablet 3 4 12:05 PM EST 024 2024 Active metroNIDAZOLE 1 % [...] Tablet (Lasix)Indication s:Lower extremity edema Take one-half Tablets by mouth in the morning. 100 Tablet 3 025 Active Potassium Chloride ER 10 MEQ [...] a week at bedtime 42.5 g 3 025 Active Fluconazole 150 MG Oral Tablet (Diflucan) Take 1 Tablet by mouth once for 1 dose. 1 Tablet 025 2024 Active Estradiol 0.1 MG/GM Vaginal Cream (Estrace) Apply pea sized amount (0.5 gm) vaginally twice a week at bedtime 42.5 g 3 3 8:00 PM EDT 023 2024 Discontinued(R efill) Fluconazole 150 MG Oral Tablet (Diflucan) Take 1 Tablet by mouth once for 1 dose. 1 Tablet 025 2024 Discontinued documented as of this encounter (statuses as of 05/03/2024) Active Problems Problem Noted Date Diagnosed Date Chronic diastolic congestive heart failure 04/14 Heart failure, diastolic, with acute decompensat ion 04/14/2024 Leg mass, right 04/13/2024 Leg cramping 07/12/2023 Leg swelling 08/26/2022 Advanced directives, counseling/discussion 03/10 Overview (07/20/2008): PROJECT: #[id number], DEHYDROGENATION CONVERTER HELPER: Angelito Chen MD SUMMARY: Patients with CHD are randomized to darapladib (Lp-PLA2 inhibitor) or placebo in addition to standard of care medications to evaluate incidence of major coronary events. CONTACTS: During normal business hours, contact Clincal Research Coordinator at appropriate clinic location, after hours on-call Clinical Research Coordinator via the [facility] hospital small craft operator ([phone]). The study sponsor can be reached at: Prolapse of vaginal vault after hysterectomy Rectocele 09/13/2020 History of cigarette smoking 09/13/2020 Overview (09/13/2020): 30 pack year Diverticulosis of large intestine without hemorr lucy 08/02/2019 Cystocele, lateral 06/28/2018 NOEL (generalized anxiety disorder) 05/23/2018 ASCVD (arteriosclerotic cardiovascular disease) 03/09/2018 Cardiac pacemaker in situ 11/12/2017 Sick sinus syndrome 11/11/2017 Old AR (myocardial infarction) 11/11/2017 Peripheral vascular disease 10/01/2017 HTN, goal below 130/80 10/03/2015 Anemia due to vitamin B12 deficiency 08/26/2015 Vitamin D deficiency 08/26/2015 DDD (degenerative disc disease), cervical 2013 Gastroesophageal reflux disease with esophagitis 12/21/2011 IBS (irritable bowel syndrome) 06/11/2011 Dyslipidemia 02/28/2009 Overview (02/28/2009): Per Lipid Taxonomy. 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 coronary artery of red cliff heart with unstable angina pectoris 07/18/2020 04/06/2023 Gastroesophageal reflux dise ase without esophagitis 06/11/2020 03/31/2022 Pain, dental 12/04/2017 06/24/2018 Visual loss 03/29/2017 10/01/2017 Headache, unspecified headache type 03/29/2017 11/11/2017 Neck discomfort 03/29/2017 10/01/2017 Abdominal pain, right upper quadrant 09/04/2016 12/07/2016 Chest pain, non-cardiac 08/09/2016 04/0 07/2018 Overview (08/10/2016): Cath [facility] 07/2016 with no changes - old SOAP MIXER Diagonal Abnormal nuclear stress test 07/27/2016 11/11/2017 Overview (08/10/2016): anterolat ischemia on nuclear 07/2016, totally expected as she has chronic total diagnonal occlusion Moderate persistent asthma w ithout complication 04/30/2016 05/19/2022 Viral URI with cough 03/01/2016 017 Coronary artery disease invo lving red cliff coronary artery of red cliff heart with unstable angina pectoris 10/03/2015 06/11/2020 Overview (08/10/2016): Monotype Machinist: Amador Barry PA-C [facility] Hx Ant wall AR at the age of 45 s/p PTCA of the LAD at [place] S/p Cath 2010, with SOAP MIXER of the diag 07/2016 [facility] [place]: moderate ischemia in a large portion of the anterior lateral and lateral myocardium.EF 76% 07/2016 Cath [facility] for atyp back pain and abnl nuclear stress: Patent LAD and RCA, known SOAP MIXER of the diagonal. Anxiety 05/21/2015 06/24/2018 Paraesophageal hernia 02/04/20152019 Cholelithiasis 11/05/2011 11/11/2017 Old myocardial infarct 10/11/200806/24 Overview (10/11/2008): Modified by Acute AR Protocol #5. Follow-up of anterolateral m yocardial [...] 06/09/2002 10/11/2008 Overview (10/11/2008): Modified by Acute AR Protocol #5. CORONARY ATHEROSCLEROSIS VESSEL NOS 02/15/2002 10/03/2015 Dyslipidemia, goal to be determined 02/15/2002 02/13/2009 Overview (02/13/2009): Per Lipid Taxonomy DIVERTICULITIS OF COLON 07/21 PURE HYPERCHOLESTEROLEM 02/19 Overview (02/28/2009): Per Lipid Taxonomy. Acute AR, anterior wall 09/20 Overview (10/11/2008): Modified by Acute AR Protocol #5. 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 She had colpocleisis, colporrhaphy on Apr 24, 2022 She did well afterwards. In the past few days, she complains of right lower quadrant pain, feeling of incomplete bladder emptying, vaginal burning and concerns that her prolapse has recurred. Allergies: Review of patient's allergies indicates: Allergen Reactions Adhesive Tape Other reaction(s): Rash Escitalopram Oxalate Itching and Other (Please comment) Jittery Ibuprofen Swelling, redness, hives Latex Rash Paxil [Paroxetine Hcl] Foggy/visual impairment Chlorhexidine Other reaction(s): rash, itching Active Medications: Current Outpatient Medications Medication Sig Dispense Refill Estradiol 0.1 MG/GM Vaginal Cream (Estrace) Apply pea sized amount (0.5 gm) vaginally twice a week at bedtime 42.5 g 3 TYLENOL ARTHRITIS PAIN 650 MG PO TBCR [...] MOUTH TWICE A DAY 180 Tablet 3 Dicyclomine HCl 10 MG Oral Capsule (Bentyl) Take 1 Capsule by mouth 2 times a day as needed for abdominal cramping or diarrhea 60 Capsule 3 Bismuth Subsalicylate 262 MG/15ML Oral Suspension (Pepto-Bismol) Take 30 mL by mouth every 4 hours as needed. Fluocinolone Acetonide Scalp 0.01 % External Oil (Murdock-Smoothe/FS Scalp) Apply to external ears asneeded for [...] and1 Drop before bedtime. 60 Each 11 No current facility-administered medications for this visit. ROS: No Change since previous visit with the exception of her complaints noted in the HPI EXAM: Well developed well nourished female in no apparent distress. Alert oriented x3 HEART: Normal peripheral pulses, Edema neg THYROID: no obvious neck masses LUNG: No increased respiratory effort ABD: Soft ND, no masses. No rebound or guarding. Mild discomfort in the right lower quadrant to deep palpation PELVIC EXAM: Ext gen: Normal external female genitalia, Vagina: No vaginal lesions or abnormal discharge. No prolapse. No discharge or lesions BIMANUAL EXAM: no masses, NT The data/ labs below were reviewed: PVR: 28 Via bladder scan Results for orders placed or performed in visit on 05/02/24 URINALYSIS, POINT OF CARE Result Value Ref Range Color, Urine Yellow Light Yellow, Yellow Clarity, Urine Clear Clear Glucose, Urine Negative Negative mg/dL Bilirubin, Urine Negative Negative Ketone, Urine Negative Negative mg/dL Specific [place], Urine 1.010 1.003 - 1.030 Blood, Urine Negative Negative pH, Urine 6.0 5.0, 5.5, 6.0, 6.5, 7.0, 7.5 units Protein, Urine Negative Negative mg/dL Urobilinogen, Urine 0.2 0.2, 1.0 mg/dL Nitrite, Urine Negative Negative Esterase, Urine Negative Negative *Note: Due to a large number of results and/or encounters for the requested time period, some results have not been displayed. A complete set of results can be found in Results Review. Impression: This is a 78 year old with Right lower quadrant abdominal pain - CT ABD/PELVIS W WO IV CONTRAST - WO ORAL CONT; Future; Expected date: 05/02/2024 - CREATININE; Future; Expected date: 05/02/2024 Atrophy: - Estradiol 0.1 MG/GM Vaginal Cream (Estrace); Apply pea sized amount (0.5 gm) vaginally twice a week at bedtime - Vaginosis panel I reassured Mrs. Mcguire that she is emptying her bladder well, her urine analysis was normal, andshe did not have recurrent prolapse on exam. She was most concerned about the right lower quadrant pain and we agreed to CT scan of the abdomen and pelvis. I spent a total of 20 minutes on the date of service in preparation, delivery, and documentation ofthe care provided to Ciarra Mcguire excluding any time spent in the performance of separately billed services. Hiro Lyons MD 05/02/2024 3:42 PM documented in this encounter Nursing Notes * Berta Pate MED ASSIST - 05/02/2024 2:43 PM EST Pt presents to the clinic for a follow up Pt felt incomplete voiding with pain. Pt then had trouble voiding and had extreme pressure on Apr 27 Pt has been taking full cap of Miralax along with 2 stool softeners. Pt having right sided pain. PVR- 28 documented in this encounter Miscellaneous Notes * Addendum Note - Hiro Lyons MD - 05/03/2024 1:44 PM ESTAddended by: HIRO LYONS on: 05/03/2024 01:44 PM Modules accepted: Orders documented in this encounter Plan of Treatment Upcoming Encounters Date Type Department Care Team (Late st Contact Info) Description 05/12/2024 10:15 AM EST Imaging Radiology [facility] [address] [place] [id number] 06/13/2024 10:30 AM EDT Office Visit [facility]enterology, [facility] [place] [address] Aster Dawson CRNP [address] [place] [address] 06/20/2024 11:00 AM EDT Office Visit Cardiology, [facility] [address] [place] [address] Valerie Ibrahim CRNP [address] [place] [address] 06/21/2024 3:30 PM EDT Office Visit Ophthalmology, [place] [address] [place] [address] Kenny Hector DO [address] [place] [address] 07/14/2024 11:40 AM EDT Office Visit Family Practice [facility] [address] [facility] [place] [address] Rosalinda Peterson CRNP [address] [place] [address] 08/03/2024 9:25 AM EDT Office Visit Urogynecology [facility] [address] [place] [address] Hiro Lyons MD [address] [place] [address] RameshNurse Rahel mckinley [facility] [address] [place] [address] Scheduled Orders Name Type Priority Associated Diagnoses Orde r Schedule CREATININE Lab Routine Right lower quadrant abdominal pain Expected: 05/02/2024, Expires: 05/02/2025 CT ABD/PELVIS W IV CONTRAST - WO ORAL CONTRAST Medical Imaging Routine Right lower quadrant abdominal pain Expected: 05/02/2024, Expires: 05/30/2025 Health Maintenance Due Date Last Done Comments DXA Scan 01/23/2023 01/24/2020, 01/21, 12/27/2012, Additional history exists Adult Wellness Visit 09/26/2024 09/27/2023, 09/01/2022, 11/20/2020 Depression Screening 09/26/2024 09/27/2023, 08/11/19 24 GFR 03/17/2025 03/17/2024, 11/21, 10/12/2023, Additional history exists Albumin/Creatinine Ratio 07/13/2026 07/14/2023 DTap/Tdap Vaccines (3 - Td or Tdap) 12/07/2032 12/07/2022, 12/12/2012, 01/30/2010, Additional history exists Pneumococcal Vaccine: 50+ Years Completed 12/12/2015, 10/25/2014, 12/28/2005 Zoster Vaccines Completed 09/13/2018, 04/22, 06/13/2008 COVID-19 Vaccine Completed 12/10/2023, , 12/04/2021, Additional history exists Influenza Vaccine (FLU shot) [...] this encounter Medical Devices Implanted Type Area Lab Analyst Device Identifier Shelf Expiration Date Model / Serial / Lot Alloderm 2x4 Sheet [id number] ( 8 Units ) - [id number] - [id number] Implanted:Qty : 8 on 02/04/2015 by Marques Rodriguez MD [place] [facility] Tissue - Human N/A: Esophagus [employer] 07/19/2016 [id number] / [id number] / [id number] Stent Eso Gw [id number] - [id number] Implanted:Qty : 1 on 02/05/2015 by Marques Rodriguez MD at [place] [facility] N/A: Esophagus [employer] 05/19/2017 [id number] / / [id number] documented as of this encounter Procedures Procedure Name Priority Date/Time Associated Diagnosis Comments VAGINOSIS PANEL, PCR Routine 05/02/2024 3:31 PM EST Right lower quadrant abdominal pain URINALYSIS, POINT OF CARE Routine 05/02/2024 2:39 PM EST documented in this encounter Results * (ABNORMAL) VAGINOSIS PANEL, PCR (05/02/2024 3:31 PM EST) Bacterial Vaginosis Result Negative Negative 05/03/2024 1:09 PM EST [facility] Comment:Negative for Bacteri al Vaginosis. Correlate results with other clinical findings. Crystal species Result Positive(A) Negative 05/03/2024 1:09 PM EST [facility] Comment:Crystal species grou p RNA detected. Correlate results with other clinical findings. Crystal glabrata Result Negative Negative 05/03/2024 1:09 PM EST [facility] Comment:No Crystal glabrata RNA detected. Correlate results with other clinical findings. Trichomonas Result Negative Negative 05/03/2024 1:09 PM EST [facility] Comment:No Trichomonas vagin jarad RNA detected. Swab Specimen from wound / Unknown 05/02/2024 3:31 PM EST 05/02/2024 5:12 PM EST us Hiro Lyons MD LAB MICRO - GENERAL ORDERABLES Final Result [facility] [address] [place] [address] * URINALYSIS, POINT OF CARE (05/02/2024 2:39 PM EST) Color, Urine Yellow Light Yellow, Yellow 05/02/2024 2:42 PM EST [facility] [place] [facility] Clarity, Urine Clear Clear 05/02/2024 2:42 PM EST [facility] [place] [facility] Glucose, Urine Negative Negative mg/dL 05/02/2024 2:42 PM EST [facility] [place] [facility] Bilirubin, Urine Negative Negative 05/02/2024 2:42 PM EST [facility] [place] [facility] Ketone, Urine Negative Negative mg/dL 05/02/2024 2:42 PM EST [facility] [place] Specific [place], Urine 1.010 1.003 - 1.030 05/02/2024 2:42 PM EST [facility] [place] [facility] Blood, Urine Negative Negative 05/02/2024 2:42 PM EST [facility] [place] [facility] [facility] pH, Urine 6.0 5.0, 5.5, 6.0, 6.5, 7.0, 7.5 units 05/02/2024 2:42 PM EST [facility] [place] [facility] [facility] Protein, Urine Negative Negative mg/dL 05/02/2024 2:42 PM EST [facility] [place] [facility] Urobilinogen, Urine 0.2 0.2, 1.0 mg/dL 05/02/2024 2:42 PM EST [facility] [place] [facility] Nitrite, Urine Negative Negative 05/02/2024 2:42 PM EST [facility] [place] [facility] Esterase, Urine Negative Negative 05/02/2024 2:42 PM EST [facility] [place] [facility] Urine 05/02/2024 2:39 PM EST 05/02/2024 2:42 PM EST us Hiro Lyons MD LAB POINT OF CARE TE ST DOCKED DEVICE UNSOLICITED RESULTS Final Result [facility] [place] [facility] [address] [facility] [address] documented in this encounter Visit Diagnoses Diagnosis Right lower quadrant abdominal pain- Primary Abdominal pain, right lower quadrant Atrophic vaginitis Postmenopausal atrophic vaginitis documented in this encounter Advance Directives Documents on File Type Date Recorded 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
--- OUTSIDE RECORDS SUMMARY | 2024-08-01 14:21 | External Medical Summary | Summary of Care ---
Author Name Unknown Organization [facility] Address [address] [place] [address] Phone [phone] Care Team Providers Care Plastic Fixture Builder Name Role Phone Rosalinda Peterson Charu BENJY [...] Hiro Lyons MD [address] [place] [address] Phone: tel: fax: Referral ID Status Reason Start Date Expiration Date V isits Requested Visits Authorized [id number] Authorized 05/02/2024 999 999 Reason for Visit * Reason Comments Follow Up Encounter Details Date Type Department Care Team (Late st Contact Info) Description 05/02/2024 3:30 PM EST Office Visit Urogynecology [facility] [address] [place] [address] Hiro Lyons MD [address] [place] [id number] Right lower quadrant abdominal pain*; Atrophic vaginitis Allergies Active Allergy Reactions Criticality Noted Date Comments Adhesive Tape 05/27/2021 Other reaction(s): Rash Chlorhexidine Low 12/30/2020 Other reaction(s): rash, itching Escitalopram Oxalate Itching,Other (Please comment) 09/07/2011 Jittery Ibuprofen 05/19/2022 Swelling, redness, hives Latex 03/18/2011 Rash Paroxetine Hcl 10/24/2015 Foggy/visual impairment documented as of this encounter (statuses as of 05/04/2024) Medications TYLENOL ARTHRITIS PAIN 650 MG PO [...] Fluocinolone Acetonide Scalp 0.01 % External Oil ([place]-Smoothe/FS Scalp) Apply to external ears as needed [...] at bedtime 42.5 g 3 025 Active Estradiol 0.1 MG/GM Vaginal Cream (Estrace) Apply pea sized amount (0.5 gm) vaginally twice a week at bedtime 42.5 g 3 3 8:00 PM EDT 023 2024 Discontinued(R efill) Fluconazole 150 MG Oral Tablet (Diflucan) Take 1 Tablet by mouth once for 1 dose. 1 Tablet 025 2024 Discontinued Fluconazole 150 MG Oral Tablet (Diflucan) Take 1 Tablet by mouth once for 1 dose. 1 Tablet 025 2024 documented as of this encounter (statuses as of 05/04/2024) Active Problems Problem Noted Date Diagnosed Date Chronic diastolic congestive heart failure 04/14 Heart failure, diastolic, with acute decompensat ion 04/14/2024 Leg mass, right 04/13/2024 Leg cramping 07/12/2023 Leg swelling 08/26/2022 Advanced directives, counseling/discussion 03/10 Overview (07/20/2008): PROJECT: #[id number], THREAD CLIPPER: Angelito Chen MD SUMMARY: Patients with CHD are randomized to darapladib (Lp-PLA2 inhibitor) or placebo in addition to standard of care medications to evaluate incidence of major coronary events. CONTACTS: During normal business hours, contact Clincal Research Coordinator at appropriate clinic location, after hours on-call Clinical Research Coordinator via the [facility] hospital break and load operator ([phone]). The study sponsor can be reached at: Prolapse of vaginal vault after hysterectomy Rectocele 09/13/2020 History of cigarette smoking 09/13/2020 Overview (09/13/2020): 30 pack year Diverticulosis of large intestine without hemorr lucy 08/02/2019 Cystocele, lateral 06/28/2018 NOEL (generalized anxiety disorder) 05/23/2018 ASCVD (arteriosclerotic cardiovascular disease) 03/09/2018 Cardiac pacemaker in situ 11/12/2017 Sick sinus syndrome 11/11/2017 Old NM (myocardial infarction) 11/11/2017 Peripheral vascular disease 10/01/2017 HTN, goal below 130/80 10/03/2015 Anemia due to vitamin B12 deficiency 08/26/2015 Vitamin D deficiency 08/26/2015 DDD (degenerative disc disease), cervical 2013 Gastroesophageal reflux disease with esophagitis 12/21/2011 IBS (irritable bowel syndrome) 06/11/2011 Dyslipidemia 02/28/2009 Overview (02/28/2009): Per Lipid Taxonomy. Generalized osteoarthritis Rosacea documented as of this encounter (statuses as of 05/04/2024) Resolved Problems Problem Noted Date Diagnosed Date Resolved Date Depression, unspecified 12/23/2022 12/0 06/2022 Migraine with aura, not intr actable, without status migrainosus 07/07/2022 07/05/2023 Hematuria, gross 03/04/2021 04/13/2024 History of UTI 03/04/2021 04/13/2024 Coronary artery disease invo lving [place] coronary artery of [place] heart with unstable angina pectoris 07/18/2020 04/06/2023 Gastroesophageal reflux dise ase without esophagitis 06/11/2020 03/31/2022 Pain, dental 12/04/2017 06/24/2018 Visual loss 03/29/2017 10/01/2017 Headache, unspecified headache type 03/29/2017 11/11/2017 Neck discomfort 03/29/2017 10/01/2017 Abdominal pain, right upper quadrant 09/04/2016 12/07/2016 Chest pain, non-cardiac 08/09/2016 04/0 07/2018 Overview (08/10/2016): Cath [facility] 07/2016 with no changes - old OPERATIONS ADVISOR Diagonal Abnormal nuclear stress test 07/27/2016 11/11/2017 Overview (08/10/2016): anterolat ischemia on nuclear 07/2016, totally expected as she has chronic total diagnonal occlusion Moderate persistent asthma w ithout complication 04/30/2016 05/19/2022 Viral URI with cough 03/01/2016 017 Coronary artery disease invo lving [place] coronary artery of [place] heart with unstable angina pectoris 10/03/2015 06/11/2020 Overview (08/10/2016): Naturalist: Amador Barry PA-C [facility] Hx Ant wall NM at the age of 45 s/p PTCA of the LAD at [place] S/p Cath 2010, with OPERATIONS ADVISOR of the diag 07/2016 [facility] [place]: moderate ischemia in a large portion of the anterior lateral and lateral myocardium.EF 76% 07/2016 Cath [facility] for atyp back pain and abnl nuclear stress: Patent LAD and RCA, known OPERATIONS ADVISOR of the diagonal. Anxiety 05/21/2015 06/24/2018 Paraesophageal hernia 02/04/20152019 Cholelithiasis 11/05/2011 11/11/2017 Old myocardial infarct 10/11/200806/24 Overview (10/11/2008): Modified by Acute NM Protocol #5. Follow-up of anterolateral m yocardial [...] 06/09/2002 10/11/2008 Overview (10/11/2008): Modified by Acute NM Protocol #5. CORONARY ATHEROSCLEROSIS VESSEL NOS 02/15/2002 10/03/2015 Dyslipidemia, goal to be determined 02/15/2002 02/13/2009 Overview (02/13/2009): Per Lipid Taxonomy DIVERTICULITIS OF COLON 07/21 PURE HYPERCHOLESTEROLEM 02/19 Overview (02/28/2009): Per Lipid Taxonomy. Acute NM, anterior wall 09/20 Overview (10/11/2008): Modified by Acute NM Protocol #5. 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 She had colpocleisis, [...] Fluocinolone Acetonide Scalp 0.01 % External Oil ([place]-Smoothe/FS Scalp) Apply to external ears asneeded for [...] Negative Ketone, Urine Negative Negative mg/dL Specific [place], Urine 1.010 1.003 - 1.030 Blood, Urine [...] Description 05/12/2024 10:15 AM EST Imaging Radiology [facility] [address] [place] [id number] 06/13/2024 10:30 AM EDT Office Visit Gastroenterology, [facility] [address] [facility] [place] [address] Aster Dawson CRNP [address] [place] [address] 06/20/2024 11:00 AM EDT Office Visit Cardiology, [facility] [address] [place] [address] Valerie Ibrahim CRNP [address] [place] [address] 06/21/2024 3:30 PM EDT Office Visit Ophthalmology, [facility] [address] [facility] [place] [address] Kenny Hector DO [facility] [place] [address] 07/14/2024 11:40 AM EDT Office Visit Family Practice [facility] [address] [facility] [place] [address] Rosalinda Peterson CRNP [address] [place] [address] 08/03/2024 9:25 AM EDT Office Visit Urogynecology [facility] [address] [place] [address] Hiro Lyons MD [address] [place] [address] RameshNurse Rahel mckinley [facility] [address] [place] [address] Scheduled Orders Name Type Priority Associated Diagnoses [...] this encounter Medical Devices Implanted Type Area Xm1 Tank Driver Device Identifier Shelf Expiration Date Model / Serial / Lot Alloderm 2x4 Sheet [id number] ( 8 Units ) - [id number] - [id number] Implanted:Qty : 8 on 02/04/2015 by Marques Rodriguez MD at OR [facility] Tissue - Human N/A: Esophagus LIFE CELL EMMANUEL 07/19/2016 [id number] / [id number] / [id number] Stent Eso Gw [id number] - [id number] Implanted:Qty : 1 on 02/05/2015 by Marques Rodriguez MD at OR [facility] N/A: Esophagus [employer]US [employer] 05/19/2017 [id number] / / [id number] documented as of this encounter Procedures Procedure Name Priority Date/Time Associated Diagnosis Comments VAGINOSIS PANEL, PCR Routine 05/02/2024 3:31 PM EST Right lower quadrant abdominal pain URINALYSIS, POINT OF CARE Routine 05/02/2024 2:39 PM EST documented in this encounter Results * (ABNORMAL) VAGINOSIS PANEL, PCR (05/02/2024 3:31 PM EST) Bacterial Vaginosis Result Negative Negative 05/03/2024 1:09 PM EST [facility] Comment:Negative for Bacteri al Vaginosis. Correlate results with other clinical findings. Crystal species Result Positive(A) Negative 05/03/2024 1:09 PM EST [facility] Comment:Crystal species grou p RNA detected. Correlate results with other clinical findings. Crystal glabrata Result Negative Negative 05/03/2024 1:09 PM EST [facility] Comment:No Crystal glabrata RNA detected. Correlate results with other clinical findings. Trichomonas Result Negative Negative 05/03/2024 1:09 PM EST [facility] Comment:No Trichomonas vagin jarad RNA detected. Swab Specimen from wound / Unknown 05/02/2024 3:31 PM EST 05/02/2024 5:12 PM EST us Hiro Lyons MD LAB MICRO - GENERAL ORDERABLES Final Result [facility] [address] [place] [address] * URINALYSIS, POINT OF CARE (05/02/2024 2:39 [...] PM EST [facility] [place] [address] Specific [place], Urine 1.010 1.003 - 1.030 05/02/2024 2:42 [...] Result [facility] [place] [address] [facility] [address] documented in this encounter Visit Diagnoses Diagnosis Right lower quadrant abdominal pain- Primary Abdominal pain, right lower quadrant Atrophic vaginitis Postmenopausal atrophic vaginitis documented in this encounter Advance Directives Documents on File Type Date Recorded Patient Men'S Locker Room Attendant Expl anation Power of Aircraft Refueller 01/22/2005 POWER OF A TTORNEY DURABLE POWER OF RAW MATERIAL PLANNER * Full Code (Latest Code Status on [...] Mcguire Spouse Health Care Sneha r of Aircraft Refueller Care Teams Plastic Fixture Builder Relationship Specialty Start Date End Date Rosalinda Peterson CRNP [address] [place] [address] PCP - General Nurse Practitioner 04/05/24 documented as of this encounter
--- OUTSIDE RECORDS SUMMARY | 2024-08-01 14:21 | External Medical Summary | Summary of Care ---
Author Name Unknown Organization [facility] Address [address] [place] [address] Phone [phone] Care Team Providers Care Production Team Advisor Name Role Phone Rosalinda Peterson Primary Care Provider Reason for Visit * Reason Onset Date Comments Encounter Created in Error 05/17/2024 Encounter Details Date Type Department Care Team (Late st Contact Info) Description 05/17/2024 Telephone Family Practice [facility] [address] [facility] [address] Rosalinda Peterson CR[facility] [address] [facility] [address] Encounter Created in Error Allergies Active Allergy Reactions Criticality Noted Date Comments Adhesive Tape 05/27/2021 Other reaction(s): Rash Chlorhexidine Low 12/30/2020 Other reaction(s): rash, itching Escitalopram Oxalate Itching,Other (Please comment) 09/07/2011 Jittery Ibuprofen 05/19/2022 Swelling, redness, hives Latex 03/18/2011 Rash Paroxetine Hcl 10/24/2015 Foggy/visual impairment documented as of this encounter (statuses as of 05/17/2024) Medications TYLENOL ARTHRITIS PAIN 650 MG PO [...] BY MOUTH EVERY DAY 90 Capsule 3 03/01/2024 4:11 PM EST 4 025 Active predniSONE 20 MG Oral [...] MOUTH TWICE A DAY 180 Tablet 3 02/28/2024 4:57 PM EST 4 025 Active Dicyclomine HCl 10 MG Oral Capsule (Bentyl)Indication s:Irritable bowel syndrome with diarrhea Take 1 Capsule by mouth 2 times a day as needed for abdominal cramping or diarrhea 60 Capsule 3 03/01/2024 4:11 PM EST 4 Active Bismuth Subsalicylate 262 MG/15ML Oral Suspension (Pepto-Bismol) Take 30 mL by mouth every 4 hours as needed. Active Fluocinolone Acetonide Scalp 0.01 % External Oil ([place]-Smoothe/FS Scalp) Apply to external ears as needed for itching. 118.28 mL 01/13/2024 2:17 PM EDT 4 Active Clotrimazole-Betam ethasone 1-0.05 % External Cream (Lotrisone) Apply topically to affected area 2 times a day. 45 g 02/11/2024 12:39 PM EST 4 Active Atenolol 50 MG Oral Tablet (Tenormin)Indicati ons:ASCVD (arteriosclerotic cardiovascular disease) TAKE ONE TABLET BY MOUTH TWICE A DAY 180 Tablet 3 02/22/2024 12:05 PM EST 4 025 Active metroNIDAZOLE 1 % [...] as of this encounter (statuses as of 05/17/2024) Active Problems Problem Noted Date Diagnosed Date Chronic diastolic congestive heart failure 04/14 Heart failure, diastolic, with acute decompensat ion 04/14/2024 Leg mass, right 04/13/2024 Leg cramping 07/12/2023 Leg swelling 08/26/2022 Advanced directives, counseling/discussion 03/10 Overview (07/20/2008): PROJECT: #[id number], PAPER MILL SUPERVISOR: Angelito Chen MD SUMMARY: Patients with CHD are randomized to darapladib (Lp-PLA2 inhibitor) or placebo in addition to standard of care medications to evaluate incidence of major coronary events. CONTACTS: During normal business hours, contact Clincal Research Coordinator at appropriate clinic location, after hours on-call Clinical Research Coordinator via the [facility] hospital gas scrubber operator ([phone]). The study sponsor can be reached at: Prolapse of vaginal vault after hysterectomy Rectocele 09/13/2020 History of cigarette smoking 09/13/2020 Overview (09/13/2020): 30 pack year Diverticulosis of large intestine without hemorr lucy 08/02/2019 Cystocele, lateral 06/28/2018 NOEL (generalized anxiety disorder) 05/23/2018 ASCVD (arteriosclerotic cardiovascular disease) 03/09/2018 Cardiac pacemaker in situ 11/12/2017 Sick sinus syndrome 11/11/2017 Old SD (myocardial infarction) 11/11/2017 Peripheral vascular disease 10/01/2017 HTN, goal below 130/80 10/03/2015 Anemia due to vitamin B12 deficiency 08/26/2015 Vitamin D deficiency 08/26/2015 DDD (degenerative disc disease), cervical 2013 Gastroesophageal reflux disease with esophagitis 12/21/2011 IBS (irritable bowel syndrome) 06/11/2011 Dyslipidemia 02/28/2009 Overview (02/28/2009): Per Lipid Taxonomy. Generalized osteoarthritis Rosacea documented as of this encounter (statuses as of 05/17/2024) Resolved Problems Problem Noted Date Diagnosed Date Resolved Date Depression, unspecified 12/23/2022 1206/2022 Migraine with aura, not intr actable, without status migrainosus 07/07/2022 07/05/2023 Hematuria, gross 03/04/2021 04/13/2024 History of UTI 03/04/2021 04/13/2024 Coronary artery disease invo lving [place] coronary artery of [place] heart with unstable angina pectoris 07/18/2020 04/06/2023 Gastroesophageal reflux dise ase without esophagitis 06/11/2020 03/31/2022 Pain, dental 12/04/2017 06/24/2018 Visual loss 03/29/2017 10/01/2017 Headache, unspecified headache type 03/29/2017 11/11/2017 Neck discomfort 03/29/2017 10/01/2017 Abdominal pain, right upper quadrant 09/04/2016 12/07/2016 Chest pain, non-cardiac 08/09/2016 04/0 07/2018 Overview (08/10/2016): Cath [facility] 07/2016 with no changes - old DIALYSIS TECH Diagonal Abnormal nuclear stress test 07/27/2016 11/11/2017 Overview (08/10/2016): anterolat ischemia on nuclear 07/2016, totally expected as she has chronic total diagnonal occlusion Moderate persistent asthma w ithout complication 04/30/2016 05/19/2022 Viral URI with cough 03/01/2016 017 Coronary artery disease invo lving [place] coronary artery of [place] heart with unstable angina pectoris 10/03/2015 06/11/2020 Overview (08/10/2016): Substance Abuse Counselor: Amador Barry PA-Cissa Gambino Ramesh Hx Ant wall SD at the age of 45 s/p PTCA of the LAD at [place] S/p Cath 2010, with DIALYSIS TECH of the diag 07/2016 [facility]: moderate ischemia in a large portion of the anterior lateral and lateral myocardium.EF 76% 07/2016 Cath [facility] for atyp back pain and abnl nuclear stress: Patent LAD and RCA, known DIALYSIS TECH of the diagonal. Anxiety 05/21/2015 06/24/2018 Paraesophageal hernia 02/04/20152019 Cholelithiasis 11/05/2011 11/11/2017 Old myocardial infarct 10/11/200806/24 Overview (10/11/2008): Modified by Acute SD Protocol #5. Follow-up of anterolateral m yocardial [...] 06/09/2002 10/11/2008 Overview (10/11/2008): Modified by Acute SD Protocol #5. CORONARY ATHEROSCLEROSIS VESSEL NOS 02/15/2002 10/03/2015 Dyslipidemia, goal to be determined 02/15/2002 02/13/2009 Overview (02/13/2009): Per Lipid Taxonomy DIVERTICULITIS OF COLON 07/21 PURE HYPERCHOLESTEROLEM 02/19 Overview (02/28/2009): Per Lipid Taxonomy. Acute SD, anterior wall 09/20 Overview (10/11/2008): Modified by Acute SD Protocol #5. 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 Not on file Not [...] 06/13/2024 10:30 AM EDT Office Visit Gastroenterology, [facility] [address] [place] [address] Aster Dawson CRNP [address] [place] [address] 06/20/2024 11:00 AM EDT Office Visit Cardiology, [facility] [address] [place] [address] Valerie Ibrahim CRNP [address] [place] [address] 06/21/2024 3:30 PM EDT Office Visit Ophthalmology, [facility] [address] [place] [address] Kenny Hector DO [address] [place] [address] 07/14/2024 11:40 AM EDT Office Visit Family Practice [facility] [address] [place] [address] Rosalinda Peterson CRNP [address] [place] [address] 08/03/2024 9:25 AM EDT Office Visit Urogynecology [facility] [address] [place] [address] Hiro Lyons MD [address] [place] [address] Nurse Rahel Ramesh Bandar [address] [place] [address] Health Maintenance Due Date Last Done Comments [...] this encounter Medical Devices Implanted Type Area Lasting Machine Operator Hand Method Device Identifier Shelf Expiration Date Model / Serial / Lot Alloderm 2x4 Sheet [id number] ( 8 Units ) - [id number] - [id number] Implanted:Qty : 8 on 02/04/2015 by Marques Rodriguez MD at OR [facility] Tissue - Human N/A: Esophagus LIFE CELL EMMANUEL 07/19/2016 [id number] / [id number] / [id number] Stent Eso Gw [id number] - [id number] Implanted:Qty : 1 on 02/05/2015 by Marques Rodriguez MD at OR [facility] N/A: Esophagus [employer]US [employer] 05/19/2017 [id number] / / [id number] documented as of this encounter Advance Directives Documents on File Type Date Recorded Patient University Counselor Expl anation Power of Street Superintendent 01/22/2005 POWER OF A TTORNEY DURABLE POWER OF PRINCIPAL ARCHITECT * Full Code (Latest Code Status [...] Mcguire Spouse Health Care Sneha r of Street Superintendent Care Teams Production Team Advisor Relationship Specialty Start Date End Date Rosalinda Peterson CRNP [address] [place] [address] PCP - General Nurse Practitioner 04/05/24 documented as of this encounter
--- OUTSIDE RECORDS SUMMARY | 2024-08-01 14:21 | External Medical Summary ---
Author Name Unknown Address Unknown Organization [facility] [address] [place] [address] Laboratory Report Ordering Provider Test Date Status [place]A [place] 05/02/2024 14:39:00 Final Observation Date Value Abnormality Reference (Units ) Status Color of Urine by Auto 05/02/2024 14:39:00 Yellow Light Yellow, Yellow Final Clarity, Urine 05/02/2024 14:39:00 Clear Clear Final Glucose [Mass/volume] in Urine by Automated test strip 05/02/2024 14:39:00 Negative Negative (mg/dL) Final Bilirubin.total [Presence] in Urine by Automated test strip 05/02/2024 14:39:00 Negative Negative Final Ketones [Mass/volume] in Urine by Automated test strip 05/02/2024 14:39:00 Negative Negative (mg/dL) Final Specific gravity, Urine 05/02/2024 14:39:00 1.010 1.003-1.030 Final Hemoglobin [Presence] in Urine by Automated test strip 05/02/2024 14:39:00 Negative Negative Final pH, Urine 05/02/2024 14:39:00 6.0 5.0, 5.5, 6.0, 6.5, 7.0, 7.5 (units) Final Protein [Mass/volume] in Urine by Automated test strip 05/02/2024 14:39:00 Negative Negative (mg/dL) Final Urobilinogen, Urine 05/02/2024 14:39:00 0.2 0.2, 1.0 (mg/dL) Final Nitrite [Presence] in Urine by Automated test strip 05/02/2024 14:39:00 Negative Negative Final Leukocyte esterase [Presence] in Urine by Automated test strip 05/02/2024 14:39:00 Negative Negative Final Performing Location [facility] [place] [address]
--- OUTSIDE RECORDS SUMMARY | 2024-08-01 14:21 | External Medical Summary | Summary of Care ---
Author Name Unknown Organization [facility] Address [address] [place] [address] Phone [phone] Care Team Providers Care Groundsman Name Role Phone Rosalinda Peterson Primary Care Provider Reason for Visit * Reason Onset Date Comments Advice 05/10/2024 Encounter Details Date Type Department Care Team (Late st Contact Info) Description 05/10/2024 Telephone Family Practice [facility] [address] [facility] [address] Rosalinda Peterson CRNP [address] [place] [address] Advice Allergies Active Allergy Reactions Criticality Noted Date Comments Adhesive Tape 05/27/2021 Other reaction(s): Rash Chlorhexidine Low 12/30/2020 Other reaction(s): rash, itching Escitalopram Oxalate Itching,Other (Please comment) 09/07/2011 Jittery Ibuprofen 05/19/2022 Swelling, redness, hives Latex 03/18/2011 Rash Paroxetine Hcl 10/24/2015 Foggy/visual impairment documented as of this encounter (statuses as of 05/12/2024) Medications TYLENOL ARTHRITIS PAIN 650 MG PO [...] Fluocinolone Acetonide Scalp 0.01 % External Oil ([place]-Smoothe/FS Scalp) Apply to external ears as needed [...] as of this encounter (statuses as of 05/12/2024) Active Problems Problem Noted Date Diagnosed Date Chronic diastolic congestive heart failure 04/14 Heart failure, diastolic, with acute decompensat ion 04/14/2024 Leg mass, right 04/13/2024 Leg cramping 07/12/2023 Leg swelling 08/26/2022 Advanced directives, counseling/discussion 03/10 Overview (07/20/2008): PROJECT: #[id number], YARN EXAMINER SKEINS: Angelito Chen MD SUMMARY: Patients with CHD are randomized to darapladib (Lp-PLA2 inhibitor) or placebo in addition to standard of care medications to evaluate incidence of major coronary events. CONTACTS: During normal business hours, contact Clincal Research Coordinator at appropriate clinic location, after hours on-call Clinical Research Coordinator via the [facility] hospital raking machine operator ([phone]). The study sponsor can be reached at: [...] as of this encounter (statuses as of 05/12/2024) Resolved Problems Problem Noted Date Diagnosed Date Resolved Date Depression, unspecified 12/23/202206/2022 Migraine with aura, not intr actable, without status migrainosus 07/07/2022 07/05/2023 Hematuria, gross 03/04/2021 04/13/2024 History of UTI 03/04/2021 04/13/2024 Coronary artery disease invo lving [place] coronary artery of [place] heart with unstable angina pectoris 07/18/2020 04/06/2023 Gastroesophageal reflux dise ase without esophagitis 06/11/2020 03/31/2022 Pain, dental 12/04/2017 06/24/2018 Visual loss 03/29/2017 10/01/2017 Headache, unspecified headache type 03/29/2017 11/11/2017 Neck discomfort 03/29/2017 10/01/2017 Abdominal pain, right upper quadrant 09/04/2016 12/07/2016 Chest pain, non-cardiac 08/09/2016 040 07/2018 Overview (08/10/2016): Cath C 07/2016 with no changes - old REGIONAL LIAISON Diagonal Abnormal nuclear stress test 07/27/2016 11/11/2017 Overview (08/10/2016): anterolat ischemia on nuclear 07/2016, totally expected as she has chronic total diagnonal occlusion Moderate persistent asthma w ithout complication 04/30/2016 05/19/2022 Viral URI with cough 03/01/2016 017 Coronary artery disease invo lving [place] coronary artery of [place] heart with unstable angina pectoris 10/03/2015 06/11/2020 Overview (08/10/2016): Green House Manager: Amador Barry PA-C [facility] Hx Ant wall [place] at the age of 45 s/p PTCA of the LAD at [place] S/p Cath 2010, with REGIONAL LIAISON of the diag 07/2016 [facility]: moderate ischemia in a large portion of the anterior lateral and lateral myocardium.EF 76% 07/2016 Cath [facility] for atyp back pain and abnl nuclear stress: Patent LAD and RCA, known REGIONAL LIAISON of the diagonal. 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 She has CT abdom today. * Telephone Encounter - Berenice Banda OSA - 05/10/2024 6:31 PM EST Patient called to say she's not feeling well after dinner tonight (she had a cup of lobster bisque and some crackers). Said her belly is swollen. She feels something is wrong. Wants to speak to PCP. Please follow up and call her back. Thank you. documented in this encounter Plan of Treatment Upcoming Encounters Date Type Department Care Team (Late st Contact Info) Description 06/13/2024 10:30 AM EDT Office Visit Gastroenterology, [address] [place] [address] Aster Dawson CRNP [address] [place] [address] 06/20/2024 11:00 AM EDT Office Visit Cardiology, [facility] [address] [place] [address] Valerie Ibrahim CRNP [address] [place] [address] 06/21/2024 3:30 PM EDT Office Visit Ophthalmology, [place] [address] [address] Kenny Hector DO [address] [facility] [place] [address] 07/14/2024 11:40 AM EDT Office Visit Family Practice [facility] [address] [place] [address] Rosalinda Peterson CRNP [address] [place] [address] 08/03/2024 9:25 AM EDT Office Visit Urogynecology [facility] [address] [place] [address] Hiro Lyons MD [address] [place] [address] Nurse Rahel Ramesh [facility] [address] [place] [address] Health Maintenance Due Date Last Done Comments [...] this encounter Medical Devices Implanted Type Area Bacon Skinner Device Identifier Shelf Expiration Date Model / Serial / Lot Alloderm 2x4 Sheet [id number] ( 8 Units ) - [id number] - [id number] Implanted:Qty : 8 on 02/04/2015 by Marques Rodriguez MD at OR [facility] Tissue - Human N/A: Esophagus [employer] EMMANUEL 07/19/2016 [id number] / [id number] / [id number] Stent Eso Gw [id number] - [id number] Implanted:Qty : 1 on 02/05/2015 by Marques oRdriguez MD at OR [facility] N/A: Esophagus [employer] 05/19/2017 [id number] / / [id number] documented as of this encounter Advance Directives Documents on File Type Date Recorded Patient Freight Booker Expl anation Power of Technical Sales Support Specialist 01/22/2005 POWER OF A TTORNEY DURABLE POWER OF CONCRETE CONVEYOR OPERATOR * Full Code (Latest Code Status [...] Saavedrabailey Spouse Health Care Sneha r of Technical Sales Support Specialist Care Teams Groundsman Relationship Specialty Start Date End Date Rosalinda Peterson CRNP [address] [place] [address] PCP - General Nurse Practitioner 04/05/24 documented as of this encounter
--- OUTSIDE RECORDS SUMMARY | 2024-08-01 14:21 | External Medical Summary | Summary of Care ---
Author Name Unknown Organization [facility] Address [address] [place] [address] Phone [phone] Care Team Providers Care Electronic Warfare Specialist Name Role Phone Rosalinda Peterson Charu BURLESON Primary Care Provider Reason for Referral * Precert (Within 10 days (routine)) - Authorized Specialty Diagnoses / Procedures Referred By Contac t Referred To Contact Radiology Diagnoses Right lower quadrant abdominal pain Procedures CT ABD/PELVIS W WO IV CONTRAST - WO ORAL CONT Hiro Lyons MD [address] [place] [address] Phone: tel: fax: Referral ID Status Reason Start Date Expiration Date V isits Requested Visits Authorized [id number] Authorized 05/02/2024 999 999 Reason for Visit * Reason Comments Follow Up Encounter Details Date Type Department Care Team (Late st Contact Info) Description 05/02/2024 3:30 PM EST Office Visit Urogynecology [facility] [address] [place] [address] Hiro Lyons MD [address] [place] [address] Right lower quadrant abdominal pain*; Atrophic vaginitis [...] 4:57 PM EST 11/30/19 24 025 Active Dicyclomine HCl 10 MG Oral Capsule (Bentyl)Indication s:Irritable bowel syndrome with diarrhea Take 1 Capsule by mouth 2 times a day as needed for abdominal cramping or diarrhea 60 Capsule 3 4 4:11 PM EST 12/09/19 24 Active Bismuth Subsalicylate 262 MG/15ML Oral Suspension (Pepto-Bismol) Take 30 mL by mouth every 4 hours as needed. Active Fluocinolone Acetonide Scalp 0.01 % External Oil ([place]-Smoothe/FS Scalp) Apply to external ears as needed [...] 180 Tablet 3 4 12:05 PM EST 02/20/20 24 025 Active metroNIDAZOLE 1 [...] a week at bedtime 42.5 g 3 05/02/19 25 Active Estradiol 0.1 MG/GM Vaginal Cream (Estrace) Apply pea sized amount (0.5 gm) vaginally twice a week at bedtime 42.5 g 3 3 8:00 PM EDT 11/07/19 23 025 Discontin ued(Refil l) documented as of this encounter (statuses as of 05/03/2024) Active Problems Problem Noted Date Diagnosed Date Chronic diastolic congestive heart failure 04/14 Heart failure, diastolic, with acute decompensat ion 04/14/2024 Leg mass, right 04/13/2024 Leg cramping 07/12/2023 Leg swelling 08/26/2022 Advanced directives, counseling/discussion 03/10 Overview (07/20/2008): PROJECT: #[id number], COSTUME SEAMSTRESS: Angelito Chen MD SUMMARY: Patients with CHD are randomized to darapladib (Lp-PLA2 inhibitor) or placebo in addition to standard of care medications to evaluate incidence of major coronary events. CONTACTS: During normal business hours, contact Clincal Research Coordinator at appropriate clinic location, after hours on-call Clinical Research Coordinator via the [facility] hospital heating operators engineer ([phone]). The study sponsor can be reached at: [...] 03/04/2021 04/13/2024 Coronary artery disease invo lving [place] coronary artery of k[place] heart with unstable angina pectoris 07/18/2020 04/06/2023 Gastroesophageal reflux dise ase without esophagitis 06/11/2020 03/31/2022 Pain, dental 12/04/2017 06/24/2018 Visual loss 03/29/2017 10/01/2017 Headache, unspecified headache type 03/29/2017 11/11/2017 Neck discomfort 03/29/2017 10/01/2017 Abdominal pain, right upper quadrant 09/04/2016 12/07/2016 Chest pain, non-cardiac 08/09/2016 04/0 07/2018 Overview (08/10/2016): Cath [facility] 07/2016 with no changes - old DIGITAL PRODUCTION OPERATOR Diagonal Abnormal nuclear stress test 07/27/2016 11/11/2017 Overview (08/10/2016): anterolat ischemia on nuclear 07/2016, totally expected as she has chronic total diagnonal occlusion Moderate persistent asthma w ithout complication 04/30/2016 05/19/2022 Viral URI with cough 03/01/2016 017 Coronary artery disease invo lving [place] coronary artery of [place] heart with unstable angina pectoris 10/03/2015 06/11/2020 Overview (08/10/2016): Shipping Team Leader: Amador Barry PA-C [facility] Hx Ant wall [place] at the age of 45 s/p PTCA of the LAD at [place] S/p Cath 2010, with DIGITAL PRODUCTION OPERATOR of the diag 07/2016 [facility]: moderate ischemia in a large portion of the anterior lateral and lateral myocardium.EF 76% 07/2016 Cath [facility] for atyp back pain and abnl nuclear stress: Patent LAD and RCA, known DIGITAL PRODUCTION OPERATOR of the diagonal. Anxiety 05/21/2015 06/24/2018 [...] mRNA, LNP-s, No Pre serve, 2-Dose Series ([employer]) 02/11/2021,06/10/2020,05/15/2020 COVID-19, MRNA-LNP, PF, 30 M CG/0.3 [...] Job Start Date Job End Date retired- [employer] Not on file Not on file Not [...] follow up visit at [facility]. She had colpocleisis, [...] Fluocinolone Acetonide Scalp 0.01 % External Oil ([place]-Smoot[place]/FS Scalp) Apply to external ears asneeded for [...] Negative Ketone, Urine Negative Negative mg/dL Specific [place], Urine 1.010 1.003 - 1.030 Blood, Urine [...] encounter Nursing Notes * Berta Pate MED NIRALI - 05/02/2024 2:43 PM EST Pt presents to the clinic for a follow up Pt felt incomplete voiding with pain. Pt then had trouble voiding and had extreme pressure on Apr 27 Pt has been taking full cap of Miralax along with 2 stool softeners. Pt having right sided pain. PVR- 28 documented in this encounter Plan of Treatment Upcoming Encounters Date Type Department Care Team (Late st Contact Info) Description 05/12/2024 10:15 AM EST Imaging Radiology [facility] [address] [place] [address] 06/13/2024 10:30 AM EDT Office Visit Gastroenterology, [facility] [address] [address] Aster Dawson CRNP [address] [place] [address] 06/20/2024 11:00 AM EDT Office Visit Cardiology, [facility] [address] [place] [address] Valerie Ibrahim CRNP [address] [place] [address] 06/21/2024 3:30 PM EDT Office Visit Ophthalmology, [place] [address] [place] [address] Kenny Hector DO [address] [place] [address] 07/14/2024 11:40 AM EDT Office Visit Family Practice [facility] [address] [place] [address] Rosalinda Peterson CRNP [address] [place] [address] 08/03/2024 9:25 AM EDT Office Visit Urogynecology [facility] [address] [place] [address] Hiro Lyons MD [address] [place] [address] Nurse Rahel Ramesh [address] [place] [address] Pending Results Name Type Priority Associated Diagnoses Date /Time VAGINOSIS PANEL, PCR Lab Routine Right lower quadrant abdominal pain 05/02/2024 3:31 PM EST Scheduled Orders Name Type Priority Associated Diagnoses Orde r Schedule CT ABD/PELVIS W WO IV CONTRAST - WO ORAL CONT Medical Imaging Routine Right lower quadrant abdominal pain Expected: 05/02/2024, Expires: 05/30/2025 CREATININE Lab Routine Right lower quadrant abdominal pain Expected: 05/02/2024, Expires: 05/02/2025 VAGINOSIS PANEL, PCR Lab Routine Right lower quadrant abdominal pain Expected: 05/02/2024, Expires: 05/02/2025 Health Maintenance Due Date Last Done Comments [...] this encounter Medical Devices Implanted Type Area Sealer Dry Cell Device Identifier Shelf Expiration Date Model / Serial / Lot Alloderm 2x4 Sheet [id number] ( 8 Units ) - [id number] - [id number] Implanted:Qty : 8 on 02/04/2015 by Marques Rodriguez MD at OR [facility] Tissue - Human N/A: Esophagus [employer] EMMANUEL 07/19/2016 [id number] / [id number] / [id number] Stent Eso Gw [id number] - [id number] Implanted:Qty : 1 on 02/05/2015 by Marques Rodriguez MD at OR [facility] N/A: Esophagus [employer] 05/19/2017 [id number] / / [id number] documented as of this encounter Procedures Procedure Name Priority Date/Time Associated Diagnosis Comments URINALYSIS, POINT OF CARE Routine 05/02/2024 2:39 PM EST documented in this encounter Results * URINALYSIS, POINT OF CARE (05/02/2024 2:39 [...] PM EST [facility] [place] [facility] Specific [place], Urine 1.010 1.003 - 1.030 05/02/2024 2:42 [...] ST DOCKED DEVICE UNSOLICITED RESULTS Final Result Performing Organization Address City/State/[facility] Co de Phone Number [facility] [place] [phone] [facility] [place] [address] documented in this encounter Visit Diagnoses Diagnosis Right lower quadrant abdominal pain- Primary Abdominal pain, right lower quadrant Atrophic vaginitis Postmenopausal atrophic vaginitis documented in this encounter Advance Directives Documents on File Type Date Recorded Patient Test Car Driver Expl anation Power of Wood Calker 01/22/2005 POWER OF A TTORNEY DURABLE POWER OF MINERALOGY PROFESSOR * Full Code (Latest Code Status on [...] Shayla Spouse Health Care Sneha r of Wood Calker Care Teams Electronic Warfare Specialist Relationship Specialty Start Date End Date Rosalinda Peterson CRNP [address] [place] [address] PCP - General Nurse Practitioner 04/05/24 documented as of this encounter
--- OUTSIDE RECORDS SUMMARY | 2024-08-01 14:21 | External Medical Summary ---
Author Name Unknown Address Unknown Organization [id number]:[facility]ORY [facility] [place] [address] [facility] [address] Laboratory Report Ordering Provider Test Date Status SEDA PLAZA 05/02/2024 15:31:02 Final Observation Date Value Abnormality Reference (Units ) Status Bacterial vaginosis [Interpretation] in Vaginal fluid Qualitative 05/02/2024 15:31:02 Negative Negative Final Negative for Bacterial Vagin osis. Correlate results with other clinical findings. Crystal sp DNA [Presence] in Vaginal fluid by Probe 05/02/2024 15:31:02 Positive Abnormal Negative Final Crystal species group RNA de tected. Correlate results with other clinical findings. Crystal glabrata RNA [Presen ce] in Vaginal fluid by SERA with probe detection 05/02/2024 15:31:02 Negative Negative Final No Crystal glabrata RNA dete cted. Correlate results with other clinical findings. Trichomonas vaginalis DNA [P resence] in Vaginal fluid by Probe 05/02/2024 15:31:02 Negative Negative Final No Trichomonas vaginalis RNA detected. Performing Location LABORATORY [facility] - [address] [facility] [address]
--- OUTSIDE RECORDS SUMMARY | 2024-08-01 14:21 | External Medical Summary | Summary of Care ---
Author Name Unknown Organization [facility] [address] [place] [address] Phone [phone] Care Team Providers Care Warehouse General Laborer Name Role Phone Rosalinda Petersonlle BENJY Primary Care Provider Reason for Visit * Reason Onset Date Comments Advice 04/27/2024 Encounter Details Date Type Department Care Team (Late st Contact Info) Description 04/27/2024 Telephone Urogynecology [facility] [address] [place] [address] [place] Nurse Urogyn [address], [place] [id number] Advice Allergies Active Allergy Reactions Criticality Noted Date Comments Adhesive Tape 05/27/2021 Other reaction(s): Rash Chlorhexidine Low 12/30/2020 Other reaction(s): rash, itching Escitalopram Oxalate Itching,Other (Please comment) 09/07/2011 Jittery Ibuprofen 05/19/2022 Swelling, redness, hives Latex 03/18/2011 Rash Paroxetine Hcl 10/24/2015 Foggy/visual impairment documented as of this encounter (statuses as of 05/02/2024) Medications TYLENOL ARTHRITIS PAIN 650 MG PO [...] Fluocinolone Acetonide Scalp 0.01 % External Oil ([place]-Smoothe/FS Scalp) Apply to external ears as needed [...] 5 2:15 PM EST 04/18/19 25 Active Estradiol 0.1 MG/GM Vaginal Cream (Estrace) Apply pea sized amount (0.5 gm) vaginally twice a week at bedtime 42.5 g 3 3 8:00 PM EDT 11/07/19 23 025 Discontin ued(Refil l) documented as of this encounter (statuses as of 05/02/2024) Active Problems Problem Noted Date Diagnosed Date Chronic diastolic congestive heart failure 04/14 Heart failure, diastolic, with acute decompensat ion 04/14/2024 Leg mass, right 04/13/2024 Leg cramping 07/12/2023 Leg swelling 08/26/2022 Advanced directives, counseling/discussion 03/10 Overview (07/20/2008): PROJECT: #[id number], WALLPAPERER HELPER: Angelito Chen MD SUMMARY: Patients with CHD are randomized to darapladib (Lp-PLA2 inhibitor) or placebo in addition to standard of care medications to evaluate incidence of major coronary events. CONTACTS: During normal business hours, contact Clincal Research Coordinator at appropriate clinic location, after hours on-call Clinical Research Coordinator via the [facility] internal grinder set up operator ([phone]). The study sponsor can be reached at: Prolapse of vaginal vault after hysterectomy Rectocele 09/13/2020 History of cigarette smoking 09/13/2020 Overview (09/13/2020): 30 pack year Diverticulosis of large intestine without hemorr lucy 08/02/2019 Cystocele, lateral 06/28/2018 NOEL (generalized anxiety disorder) 05/23/2018 ASCVD (arteriosclerotic cardiovascular disease) 03/09/2018 Cardiac pacemaker in situ 11/12/2017 Sick sinus syndrome 11/11/2017 Old TX (myocardial infarction) 11/11/2017 Peripheral vascular disease 10/01/2017 HTN, goal below 130/80 10/03/2015 Anemia due to vitamin B12 deficiency 08/26/2015 Vitamin D deficiency 08/26/2015 DDD (degenerative disc disease), cervical 2013 Gastroesophageal reflux disease with esophagitis 12/21/2011 IBS (irritable bowel syndrome) 06/11/2011 Dyslipidemia 02/28/2009 Overview (02/28/2009): Per Lipid Taxonomy. Generalized osteoarthritis Rosacea documented as of this encounter (statuses as of 05/02/2024) Resolved Problems Problem Noted Date Diagnosed Date Resolved Date Depression, unspecified 12/23/2022 120 06/2022 Migraine with aura, not intr actable, without status migrainosus 07/07/2022 07/05/2023 Hematuria, gross 03/04/2021 04/13/2024 History of UTI 03/04/2021 04/13/2024 Coronary artery disease invo lving ute coronary artery of ute heart with unstable angina pectoris 07/18/2020 04/06/2023 Gastroesophageal reflux dise ase without esophagitis 06/11/2020 03/31/2022 Pain, dental 12/04/2017 06/24/2018 Visual loss 03/29/2017 10/01/2017 Headache, unspecified headache type 03/29/2017 11/11/2017 Neck discomfort 03/29/2017 10/01/2017 Abdominal pain, right upper quadrant 09/04/2016 12/07/2016 Chest pain, non-cardiac 08/09/201607/2018 Overview (08/10/2016): Cath C 07/2016 with no changes - old REGULATORY INTERN Diagonal Abnormal nuclear stress test 07/27/2016 11/11/2017 Overview (08/10/2016): anterolat ischemia on nuclear 07/2016, totally expected as she has chronic total diagnonal occlusion Moderate persistent asthma w ithout complication 04/30/2016 05/19/2022 Viral URI with cough 03/01/2016 017 Coronary artery disease invo lving ute coronary artery of ute heart with unstable angina pectoris 10/03/2015 06/11/2020 Overview (08/10/2016): Rug Hooker Hand: Amador Barry PA-[employer] [facility] Ramesh Hx Ant wall [place] at the age of 45 s/p PTCA of the LAD at [place] S/p Cath 2010, with REGULATORY INTERN of the diag 07/2016 [facility]: moderate ischemia in a large portion of the anterior lateral and lateral myocardium.EF 76% 07/2016 Cath C for atyp back pain and abnl nuclear stress: Patent LAD and RCA, known REGULATORY INTERN of the diagonal. Anxiety 05/21/2015 06/24/2018 Paraesophageal hernia 02/04/20152019 Cholelithiasis 11/05/2011 11/11/2017 Old myocardial infarct 10/11/200806/24 Overview (10/11/2008): Modified by Acute TX Protocol #5. Follow-up of anterolateral m yocardial [...] 06/09/2002 10/11/2008 Overview (10/11/2008): Modified by Acute TX Protocol #5. CORONARY ATHEROSCLEROSIS VESSEL NOS 02/15/2002 10/03/2015 Dyslipidemia, goal to be determined 02/15/2002 02/13/2009 Overview (02/13/2009): Per Lipid Taxonomy DIVERTICULITIS OF COLON 07/21 PURE HYPERCHOLESTEROLEM 02/19 Overview (02/28/2009): Per Lipid Taxonomy. Acute TX, anterior wall 09/20 Overview (10/11/2008): Modified by Acute [place] Protocol #5. 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, including hip 11/11/2017 documented as of this encounter (statuses as of 05/02/2024) Immunizations Name Administration Dates Next Due COVID-19 mRNA, LNP-s, No Pre serve, 2-Dose Series (Hum) 02/11/2021,06/10/2020,05/15/2020 COVID-19, MRNA-LNP, PF, 30 M CG/0.3 mL, 12 YRS AND ABOVE, IM (Vital Energi-ComirnatBALALIKEA) 12/10/2023,06/17/2023 Covid-19, Mrna, Lnp-s, Pf, B ivalent, [...] No 08/11/2023 Does the household have a [facility] source of income? 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 She states she dealt with constipation for several days last week and had concern it was due to the Furosemide. Pt took Metamucil which resolved constipation. Pt scheduled for visit with Dr. Lyons today to address urinary concerns. No further questions or concerns. * Telephone Encounter - Katy Sherman OSA - 04/27/2024 1:37 PM EST Pt is calling because uro/gyno has advised her to reach out to family practice and see if her meds can be adjusted to help with these issues. Please reach out to pt to advise. * Telephone Encounter - Inge Vasquez RN - 04/27/2024 12:49 PM EST Patient called again and reports that she has diarrhea now. She ate things that knew would cause her to have a bm. She states that the more she is able to empty her bowels her urine is flowing easier. * Telephone Encounter - Inge Vasquez RN - 04/27/2024 10:20 AM EST Patient called to report that she is having trouble urinating. She states that she had previously had this issue when she was constipated last week. She had trouble urinating before when she was constipated and once her bowels started moving she was able to void without difficulty. She moved her bowels yesterday and reports that her BM yesterday was soft but coming in clumps and she believes thatshe is backing up again. She is currently only using a stool softener. Advised that she can add miralax to help get her bowels moving. Patient denies burning with urination and had a negative culture 3 days ago. She has voided 3-4 times today. Her initial void was without pressure but the remaining times she felt a lot of pressure. She feels a pulsating in her bottom when she sits to void and she had such pressure that she thoughtsticking her finger into her vagina would allow her to void. I advised that she take miralax now tohave a good BM and to track here urine output for a couple of hours and call me with her numbers and her progress. documented in this encounter Plan of Treatment Upcoming Encounters Date Type Department Care Team (Late st Contact Info) Description 05/02/2024 3:30 PM EST Office Visit Urogynecology [facility] [address] [address] Hiro Lyons MD [address] [address] UTI (urinary tract infection)* 06/13/2024 10:30 AM EDT Office Visit Gastroenterology, [facility] [address] [address] Aster Dawson CRNP [address] [address] 06/20/2024 11:00 AM EDT Office Visit Cardiology, [facility] [address] [address] Valerie Bassett CRNP [address] [place] [address] 06/21/2024 3:30 PM EDT Office Visit Ophthalmology, [place] [address] [address] Kenny Hector DO [address] [place] [address] 07/14/2024 11:40 AM EDT Office Visit Family Practice [facility] [address] [place] [address] Rosalinda Peterson CRNP [address] [place] [address] 08/03/2024 9:25 AM EDT Office Visit Urogynecology [facility] [address] [address] Hiro Lyons MD [address] [place] [address] Nurse Rahel Ramesh [facility] [address] [place] [address] Health Maintenance Due Date Last Done Comments [...] encounter Medical Devices Implanted Type Area Paper Box Cutter Device Identifier Shelf Expiration Date Model / Serial / Lot Alloderm 2x4 Sheet [id number] ( 8 Units ) - [id number] - [id number] Implanted:Qty : 8 on 02/04/2015 by Marques Rodriguez MD [place] [facility] Tissue - Human N/A: Esophagus [employer] EMMANUEL 07/19/2016 [id number] / [id number] Stent Eso Gw [id number] - [id number] Implanted:Qty : 1 on 02/05/2015 by Marques Rodriguez MD at [place] [facility] N/A: Esophagus [employer] 05/19/2017 [id number] / / [id number] documented as of this encounter Advance Directives Documents on File Type Date Recorded Patient Sales Service Manager Expl anation Power of Tube Sizer Operator 01/22/2005 POWER OF A TTORNEY DURABLE POWER OF STATISTICS INTERN * Full Code (Latest Code Status on [...] Relationship Communication Dong Mcguire Spouse Health [facility] r of Tube Sizer Operator Care Teams Warehouse General Laborer Relationship Specialty Start Date End Date Rosalinda Peterson CRNP [address] [address] PCP - General Nurse Practitioner 04/05/24 documented as of this encounter
--- OUTSIDE RECORDS SUMMARY | 2024-08-01 14:22 | External Medical Summary | Summary of Care ---
Author Name Unknown Organization [facility] [address] [place] [address] Phone [phone] Care Team Providers Care Limehouse Worker Name Role Phone Rosalinda Petersonlle BENJY Primary Care Provider Reason for Visit * Reason Onset Date Comments Advice 04/27/2024 Encounter Details Date Type Department Care Team (Late st Contact Info) Description 04/27/2024 Telephone Urogynecology [facility] [address] [place] [address] [place] Nurse Urogyn [address], [place] [phone] Advice Allergies Active Allergy Reactions Criticality Noted Date Comments Adhesive Tape 05/27/2021 Other reaction(s): Rash Chlorhexidine Low 12/30/2020 Other reaction(s): rash, itching Escitalopram Oxalate Itching,Other (Please comment) 09/07/2011 Jittery Ibuprofen 05/19/2022 Swelling, redness, hives Latex 03/18/2011 Rash Paroxetine Hcl 10/24/2015 Foggy/visual impairment documented as of this encounter (statuses as of 04/27/2024) Medications TYLENOL ARTHRITIS PAIN 650 MG PO [...] by mouth as needed for Constipation. Active Estradiol 0.1 MG/GM Vaginal Cream (Estrace) Apply pea sized amount (0.5 gm) vaginally twice a week at bedtime 42.5 g 3 11/12/2022 8:00 PM EDT 3 Active Nitroglycerin 0.4 MG Sublingual Tablet Sublingual [...] Fluocinolone Acetonide Scalp 0.01 % External Oil ([place]-Smoothe/FS Scalp) Apply to external ears as needed [...] 3 04/20/2024 2:15 PM EST 5 Active documented as of this encounter (statuses as of 04/27/2024) Active Problems Problem Noted Date Diagnosed Date Chronic diastolic congestive heart failure 04/14 Heart failure, diastolic, with acute decompensat ion 04/14/2024 Leg mass, right 04/13/2024 Leg cramping 07/12/2023 Leg swelling 08/26/2022 Advanced directives, counseling/discussion 03/10 Overview (07/20/2008): PROJECT: #[id number], CYLINDER PRESS OPERATOR HELPER: Angelito Chen MD SUMMARY: Patients with CHD are randomized to darapladib (Lp-PLA2 inhibitor) or placebo in addition to standard of care medications to evaluate incidence of major coronary events. CONTACTS: During normal business hours, contact Clincal Research Coordinator at appropriate clinic location, after hours on-call Clinical Research Coordinator via the [facility] tuber operator ([phone]). The study sponsor can be reached at: [...] as of this encounter (statuses as of 04/27/2024) Resolved Problems Problem Noted Date Diagnosed Date Resolved Date Depression, unspecified 12/23/2022 12/0 06/2022 Migraine with aura, not intr actable, without status migrainosus 07/07/2022 07/05/2023 Hematuria, gross 03/04/2021 04/13/2024 History of UTI 03/04/2021 04/13/2024 Coronary artery disease invo lving [place] coronary artery of [place] heart with unstable angina pectoris 07/18/2020 04/06/2023 Gastroesophageal reflux dise ase without esophagitis 06/11/2020 03/31/2022 Pain, dental 12/04/2017 06/24/2018 Visual loss 03/29/2017 10/01/2017 Headache, unspecified headache type 03/29/2017 11/11/2017 Neck discomfort 03/29/2017 10/01/2017 Abdominal pain, right upper quadrant 09/04/2016 12/07/2016 Chest pain, non-cardiac 08/09/201607/2018 Overview (08/10/2016): Cath C 07/2016 with no changes - old BRAIDER OPERATOR Diagonal Abnormal nuclear stress test 07/27/2016 11/11/2017 Overview (08/10/2016): anterolat ischemia on nuclear 07/2016, totally expected as she has chronic total diagnonal occlusion Moderate persistent asthma w ithout complication 04/30/2016 05/19/2022 Viral URI with cough 03/01/2016 017 Coronary artery disease invo lving [place] coronary artery of [place] heart with unstable angina pectoris 10/03/2015 06/11/2020 Overview (08/10/2016): Manager Adult: Amador Barry PA-C Hx Ant wall [place] at the age of 45 s/p PTCA of the LAD at [place] S/p Cath 2010, with BRAIDER OPERATOR of the diag 07/2016 [facility]: moderate ischemia in a large portion of the anterior lateral and lateral myocardium.EF 76% 07/2016 Cath [facility] for atyp back pain and abnl nuclear stress: Patent LAD and RCA, known BRAIDER OPERATOR of the diagonal. 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 Not on file Not on file [...] encounter Miscellaneous Notes * Telephone Encounter - Katy Sherman OSA [...] Team (Late st Contact Info) Description 04/28/2024 11:15 AM EST [facility] [address] [address] Kenny Hector DO [address] [address] 05/02/2024 3:30 PM EST Office Visit Urogynecology [facility] [address] [address] Hiro Lyons MD [address] [address] 06/13/2024 10:30 AM EDT Office Visit Gastroenterology, [facility] [address] [address] Aster Dawson CRNP [address] [address] 06/20/2024 11:00 AM EDT Office Visit Cardiology, [facility] [address] [address] Valerie Ibrahim CRNP [address] [address] 06/21/2024 3:30 PM EDT Office Visit Ophthalmology, [place] [address] [address] Kenny Hector DO [address] [address] 07/14/2024 11:40 AM EDT Office Visit Family Practice [facility] [address] [facility] [place] [address] Rosalinda Peterson CRNP [address] [place] [address] 08/03/2024 9:25 AM EDT Office Visit Urogynecology [facility] [address] [place] [address] Hiro Lyons MD [address] [place] [address] RameshNurse Rahel mckinley [facility] [address] [place] [address] Health Maintenance Due Date Last Done Comments [...] this encounter Medical Devices Implanted Type Area Spray Gun Sizer Device Identifier Shelf Expiration Date Model / Serial / Lot Alloderm 2x4 Sheet [id number] ( 8 Units ) - [id number] - [id number] Implanted:Qty : 8 on 02/04/2015 by Marques Rodriguez MD [place] [facility] Tissue - Human N/A: Esophagus [employer] E[employer] 07/19/2016 [id number] / [id number] Stent Eso Gw [id number] - [id number] Implanted:Qty : 1 on 02/05/2015 by Marques Rodriguez MD [place] [facility] N/A: Esophagus [employer] 05/19/2017 [id number] / / [id number] documented as of this encounter Advance Directives Documents on File Type Date Recorded Patient Installation And Repair Technician Expl anation Power of Payroll Administrative Assistant 01/22/2005 POWER OF A TTORNEY DURABLE POWER OF SUSTAINABILITY COMMUNICATOR * Full Code (Latest Code Status on [...] Relationship Healthcare Agent Relationship Communication Dong Carpiojoyce [facility] Sneha r of Payroll Administrative Assistant Care Teams Limehouse Worker Relationship Specialty Start Date End Date Rosalinda Peterson CRNP [address] [place] [address] PCP - General Nurse Practitioner 04/05/24 documented as of this encounter
--- OUTSIDE RECORDS SUMMARY | 2024-08-01 14:22 | External Medical Summary | Summary of Care ---
Author Name Unknown Organization [facility] Address [address] [place] [address] Phone [phone] Care Team Providers Care Thread Winder Automatic Name Role Phone Rosalinda Petersonlle BENJY Primary Care Provider Reason for Visit * Reason Onset Date Comments Advice 04/23/2024 Appointment 04/23/2024 Sooner than 05/05 Encounter Details Date Type Department Care Team (Late st Contact Info) Description 04/23/2024 Telephone Urogynecology [address] [address] Services, Scheduling [address] [place] [address] Advice; Appointment (Sooner than 05/05) Allergies Active Allergy Reactions Criticality Noted Date Comments Adhesive Tape 05/27/2021 Other reaction(s): Rash Chlorhexidine Low 12/30/2020 Other reaction(s): rash, itching Escitalopram Oxalate Itching,Other (Please comment) 09/07/2011 Jittery Ibuprofen 05/19/2022 Swelling, redness, hives Latex 03/18/2011 Rash Paroxetine Hcl 10/24/2015 Foggy/visual impairment documented as of this encounter (statuses as of 04/24/2024) Medications TYLENOL ARTHRITIS PAIN 650 MG PO [...] Fluocinolone Acetonide Scalp 0.01 % External Oil ([place]-Smoothe/FS Scalp) Apply to external ears as needed [...] as of this encounter (statuses as of 04/24/2024) Active Problems Problem Noted Date Diagnosed Date Chronic diastolic congestive heart failure 04/14 Heart failure, diastolic, with acute decompensat ion 04/14/2024 Leg mass, right 04/13/2024 Leg cramping 07/12/2023 Leg swelling 08/26/2022 Advanced directives, counseling/discussion 03/10 Overview (07/20/2008): PROJECT: #[id number], COGNOS BI DEVELOPER: Angelito Chen MD SUMMARY: Patients with CHD are randomized to darapladib (Lp-PLA2 inhibitor) or placebo in addition to standard of care medications to evaluate incidence of major coronary events. CONTACTS: During normal business hours, contact Clincal Research Coordinator at appropriate clinic location, after hours on-call Clinical Research Coordinator via the [facility] hospital cat scanner operator ([phone]). The study sponsor can be reached at: [...] as of this encounter (statuses as of 04/24/2024) Resolved Problems Problem Noted Date Diagnosed Date Resolved Date Depression, unspecified 12/23/2022 120 06/2022 Migraine with aura, not intr actable, without status migrainosus 07/07/2022 07/05/2023 Hematuria, gross 03/04/2021 04/13/2024 History of UTI 03/04/2021 04/13/2024 Coronary artery disease invo lving [place] coronary artery of [place] heart with unstable angina pectoris 07/18/2020 04/06/2023 Gastroesophageal reflux dise ase without esophagitis 06/11/2020 03/31/2022 Pain, dental 12/04/2017 06/24/2018 Visual loss 03/29/2017 10/01/2017 Headache, unspecified headache type 03/29/2017 11/11/2017 Neck discomfort 03/29/2017 10/01/2017 Abdominal pain, right upper quadrant 09/04/2016 12/07/2016 Chest pain, non-cardiac 08/09/201607/2018 Overview (08/10/2016): Cath C 07/2016 with no changes - old CREATIVE DESIGNER Diagonal Abnormal nuclear stress test 07/27/2016 11/11/2017 Overview (08/10/2016): anterolat ischemia on nuclear 07/2016, totally expected as she has chronic total diagnonal occlusion Moderate persistent asthma w ithout complication 04/30/2016 05/19/2022 Viral URI with cough 03/01/2016 017 Coronary artery disease invo lving [place] coronary artery of [place] heart with unstable angina pectoris 10/03/2015 06/11/2020 Overview (08/10/2016): Tensioning Machine Operator: Amador Barry PA-C Hx Ant wall [place] at the age of 45 s/p PTCA of the LAD at [place] S/p Cath 2010, with CREATIVE DESIGNER of the diag 07/2016 [facility]: moderate ischemia in a large portion of the anterior lateral and lateral myocardium.EF 76% 07/2016 Cath C for atyp back pain and abnl nuclear stress: Patent LAD and RCA, known CREATIVE DESIGNER of the diagonal. Anxiety 05/21/2015 06/24/2018 Paraesophageal [...] as of this encounter (statuses as of 04/24/2024) Immunizations Name Administration Dates Next Due COVID-19 mRNA, LNP-s, No Pre serve, 2-Dose Series ([employer]) 02/11/2021,06/10/2020,05/15/2020 COVID-19, MRNA-LNP, PF, 30 M CG/0.3 mL, 12 YRS AND ABOVE, IM ([facility]) 12/10/2023,06/17/2023 Covid-19, Mrna, Lnp-s, Pf, B [...] ages 0-17 years) Not on file 08/11/2023 Comments No Sex and Gender Information Value Date Recorded Sex Assigned at Female 05/15/2019 1:41 PM EST Legal Sex Female 5:51 AM EST Gender Identity Female 05/15/2019 1:41 PM EST Sexual Orientation Straight 11/20/2020 10 :19 AM EDT 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 Pt has f/u appt on 05/05 and asking if she can be seen 04/28 when pt is at eye appt. Call pt to advise that no providers areat [place] on 04/28 but will order UA and culture. Pt notes that she feels a lot of pressure and frequency. Advised it would be best to leave a urine sample to r/o infection. * Telephone Encounter - Elisa Ferrer OSA - 04/23/2024 10:32 AM EST Uro-Integration Technician Dr Lyons patient at Patients symptoms; urgency feeling, like im not emptying/ feeling of pressure/ strong odor Scheduled with Serena Segura at on 05/05 as soonest appt autosearching Pt states with be in [place] Friday 04/28 for eye appt at 11am if Dr Lyons can see her then? Patient very concerned. Would like a callback or to be seen sooner with Dr Lyons Thank you documented in this encounter Plan of Treatment Upcoming Encounters Date Type Department Care Team (Late st Contact Info) Description 04/28/2024 11:15 AM EST Office Visit Ophthalmology, [place] [address] [address] Kenny Hector DO [address] [address] 05/05/2024 11:20 AM EST Office Visit Urogynecology [facility] [address] [place] [address] Alma Segura PA-C [address] [place] [address] 06/13/2024 10:30 AM EDT Office Visit Gastroenterology, [facility] [address] [facility] [place] [address] Aster Dawson CRNP [address] [place] [address] 06/20/2024 11:00 AM EDT Office Visit Cardiology, [facility] [address] [place] [address] Valerie Ibrahim CRNP [address] [facility] [place] [place] [address] 06/21/2024 3:30 PM EDT Office Visit Ophthalmology, [place] [address] [address] Kenny Hector DO [address] [place] [address] 07/14/2024 11:40 AM EDT Office Visit Family Practice [facility] [address] [facility] [place] [address] Rosalinda Peterson CRNP [facility] [place] [address] 08/03/2024 9:25 AM EDT Office Visit Urogynecology [facility] [address] [place] [address] Hiro Lyons MD [address] [place] [address] Nurse Rahel Ramesh [facility] [address] [place] [address] Pending Results Name Type Priority Associated Diagnoses Date /Time CULTURE, URINE, QUANTITATIVE Lab Routine Dysuria 04/24/2024 2:03 PM EST Scheduled Orders Name Type Priority Associated Diagnoses Orde r Schedule CULTURE, URINE, QUANTITATIVE Lab Routine Dysuria Expected: 04/24/2024 (Approximate), Expires: 05/22/2024 Health Maintenance Due Date Last Done Comments [...] this encounter Medical Devices Implanted Type Area Automatic Buffer Device Identifier Shelf Expiration Date Model / Serial / Lot Alloderm 2x4 Sheet [id number] ( 8 Units ) - [id number] - [id number] Implanted:Qty : 8 on 02/04/2015 by Marques Rodriguez MD at OR [facility] Tissue - Human N/A: Esophagus LIFE [employer] EMMANUEL 07/19/2016 [id number] / [id number] / [id number] Stent Eso Gw [id number] - [id number] Implanted:Qty : 1 on 02/05/2015 by Marques Rodriguez MD at OR [facility] N/A: Esophagus [employer] 05/19/2017 [id number] / / [id number] documented as of this encounter Results * URINALYSIS, REFLEX TO MICROSCOPIC (04/24/2024 2:03 PM EST) Color, Urine Yellow Light Yellow, Yellow, Dark Yellow 04/24/2024 2:40 PM EST [facility] [place] [facility] Clarity, Urine Clear Clear 04/24/2024 2:40 PM EST [facility] [place] [facility] Glucose, Urine Negative Negative mg/dL 04/24/2024 2:40 PM EST [facility] [place] [facility] Bilirubin, Urine Negative Negative 04/24/2024 2:40 PM EST [facility] [place] [facility] Ketone, Urine Negative Negative mg/dL 04/24/2024 2:40 PM EST [facility] [place] [facility] Specific [place]der, Urine 1.020 1.003 - 1.030 04/24/2024 2:40 PM EST [facility] [place] [facility] Blood, Urine Negative Negative 04/24/2024 2:40 PM EST [facility] [place] [facility] pH, Urine 5.5 5.0 - 7.5 Units 04/24/2024 2:40 PM EST [facility] [place] [facility] Protein, Urine Negative Negative mg/dL 04/24/2024 2:40 PM EST [facility] [place] [facility] Urobilinogen, Urine 0.2 0.2, 1.0 mg/dL 04/24/2024 2:40 PM EST [facility] [place] [facility] Nitrite, Urine Negative Negative 04/24/2024 2:40 PM EST [facility] [place] [facility] Esterase, Urine Negative Negative 2:40 PM EST [facility] [place] [facility] Comment, Urine 04/24/2024 2:40 PM EST [facility] [place] [facility] Comment:Screen negative - Mi croscopic not performed. Urine Urine specimen obtained by clean catch procedure / Unknown Non-blood Collection / Unknown 04/24/2024 2:03 PM EST 04/24/2024 2:03 PM EST us Hiro Lyons MD LAB URINE ORDERABLES Final Res ult [facility] [place] [facility] [address] [address] documented in this encounter Visit Diagnoses Diagnosis Dysuria- Primary documented in this encounter Advance Directives Documents on File Type Date Recorded Patient Skin Diving Teacher Expl anation Power of Control Systems Developer 01/22/2005 POWER OF A TTORNEY DURABLE POWER OF ROUGH RICE TENDER * Full Code (Latest Code Status on [...] Mcguire Spouse Health Care Sneha r of Control Systems Developer Care Teams Thread Winder Automatic Relationship Specialty Start Date End Date Rosalinda Peterson CRNP [address] [address] PCP - General Nurse Practitioner 04/05/24 documented as of this encounter
--- OUTSIDE RECORDS SUMMARY | 2024-08-01 14:22 | External Medical Summary | Summary of Care ---
Author Name Unknown Organization [facility] [address] [place] [address] Phone [phone] Care Team Providers Care Cutting Tool Sharpener Name Role Phone Rosalinda Petersonlle BENJY Primary Care Provider Reason for Visit * Reason Onset Date Comments Advice 04/27/2024 Encounter Details Date Type Department Care Team (Late st Contact Info) Description 04/27/2024 Telephone Urogynecology [facility] [address] [place] [address] [place] Nurse Urogyn [address], [place] [id number] Advice Allergies Active Allergy Reactions Criticality Noted [...] Fluocinolone Acetonide Scalp 0.01 % External Oil ([place]-Smoothe/FS Scalp) Apply to external ears as needed [...] Advanced directives, counseling/discussion 03/10 Overview (07/20/2008): PROJECT: #[id number], TEST HOLE DRILLER: Angelito Chen MD SUMMARY: Patients with CHD are randomized to darapladib (Lp-PLA2 inhibitor) or placebo in addition to standard of care medications to evaluate incidence of major coronary events. CONTACTS: During normal business hours, contact Clincal Research Coordinator at appropriate clinic location, after hours on-call Clinical Research Coordinator via the [facility] hospital seed cleaner operator ([phone]). The study sponsor can be reached at: [...] 03/04/2021 04/13/2024 Coronary artery disease invo lving [place] coronary artery of [place] heart with unstable angina pectoris 07/18/2020 04/06/2023 Gastroesophageal reflux dise ase without esophagitis 06/11/2020 03/31/2022 Pain, dental 12/04/2017 06/24/2018 Visual loss 03/29/2017 10/01/2017 Headache, unspecified headache type 03/29/2017 11/11/2017 Neck discomfort 03/29/2017 10/01/2017 Abdominal pain, right upper quadrant 09/04/2016 12/07/2016 Chest pain, non-cardiac 08/09/201607/2018 Overview (08/10/2016): Cath C 07/2016 with no changes - old WEIGHER AND CHARGER Diagonal Abnormal nuclear stress test 07/27/2016 11/11/2017 Overview (08/10/2016): anterolat ischemia on nuclear 07/2016, totally expected as she has chronic total diagnonal occlusion Moderate persistent asthma w ithout complication 04/30/2016 05/19/2022 Viral URI with cough 03/01/2016 017 Coronary artery disease invo lving [place] coronary artery of [place] heart with unstable angina pectoris 10/03/2015 06/11/2020 Overview (08/10/2016): Vp Lab: Amador Barry PA-C Hx Ant wall [place] at the age of 45 s/p PTCA of the LAD at [place] S/p Cath 2010, with WEIGHER AND CHARGER of the diag 07/2016 [facility]: moderate ischemia in a large portion of the anterior lateral and lateral myocardium.EF 76% 07/2016 Cath [facility] for atyp back pain and abnl nuclear stress: Patent LAD and RCA, known WEIGHER AND CHARGER of the diagonal. 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 Not on file Not on file Not [...] Description 04/28/2024 11:15 AM EST [facility] [address] [address] Kenny Hector DO [address] [address] 05/02/2024 3:30 PM EST Office Visit Urogynecology [facility] [address] [address] Hiro Lyons MD [address] [address] 06/13/2024 10:30 AM EDT Office Visit Gastroenterology, [facility] [address] [address] Aster Dawson CRNP [address] [address] 06/20/2024 11:00 AM EDT Office Visit Cardiology, [facility] [address] [address] Valerie Ibrahim CRNP [address] [address] 06/21/2024 3:30 PM EDT Office Visit Ophthalmology, [place] [address] [address] Kenny Hector DO [address] [address] 07/14/2024 11:40 AM EDT Office Visit Family Practice [facility] [address] [facility] [place] [address] Rosalinda Peterson CRNP [address] [place] [address] 08/03/2024 9:25 AM EDT Office Visit Urogynecology [facility] [address] [place] [address] Hiro Lyons MD [address] [place] [address] RameshNurse Rahel mckinley [facility] [address] [facility] [place] [address] Health Maintenance Due Date Last Done Comments [...] this encounter Medical Devices Implanted Type Area Sales And Service Officer Device Identifier Shelf Expiration Date Model / Serial / Lot Alloderm 2x4 Sheet [id number] ( 8 Units ) - [id number] - [id number] Implanted:Qty : 8 on 02/04/2015 by Marques Rodriguez MD at OR [facility] Tissue - Human N/A: Esophagus [employer] 07/19/2016 [id number] / [id number] / [id number] Stent Eso Gw [id number] - [id number] Implanted:Qty : 1 on 02/05/2015 by Marques Rodriguez MD at OR [facility] N/A: Esophagus [employer] 05/19/2017 [id number] / / [id number] documented as of this encounter Advance Directives Documents on File Type Date Recorded Patient Communications Billing Analyst Expl anation Power of Advertising Display Rotator 01/22/2005 POWER OF A TTORNEY DURABLE POWER OF TRAVEL REGISTERED NURSE ICU * Full Code (Latest Code Status on [...] Relationship Healthcare Agent Relationship Communication Dong Carpiojoyce [facility] Sneha r of Advertising Display Rotator Care Teams Cutting Tool Sharpener Relationship Specialty Start Date End Date Rosalinda Peterson CRNP [address] [place] [address] PCP - General Nurse Practitioner 04/05/24 documented as of this encounter
--- OUTSIDE RECORDS SUMMARY | 2024-08-01 14:22 | External Medical Summary ---
Author Name Unknown Address Unknown Organization K01:[facility] - [address] [place] [id number] Laboratory Report Ordering Provider Test Date Status [place] 04/24/2024 14:03:17 Final Observation Date Value Abnormality Reference (Units) Status Bacteria identified in Specimen by Culture 04/24/2024 14:03:17 No significant growth Final Test: Culture, Urine, Quanti tative
Specimen Source: Urine, Clean Catch
Specimen Type: Urine
Specimen Date: 04/24/2024 1403
Result Date: 04/25/2024 1630
Result Status: Final result
Resulting Lab: [facility]
[address]
[place] [address]

CULTURE

No significant growth

null Performing Location [facility] - [address] [facility] [address]
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
--- OUTSIDE RECORDS SUMMARY | 2024-08-01 14:22 | External Medical Summary | Summary of Care ---
Author Name Unknown Organization [facility] Address [address] [place] [address] Phone [phone] Care Team Providers Care Pitting Machine Operator Name Role Phone Rosalinda Petersonlle BENJY Primary Care Provider Reason for Visit * Reason Onset Date Comments Advice 04/24/2024 Encounter Details Date Type Department Care Team (Late st Contact Info) Description 04/24/2024 Telephone Fertility [facility] [address] [place] [address] Alma Segura PA-C [address] [place] [address] Advice Allergies Active Allergy Reactions Criticality [...] needed for muscle spasms 30 Tablet 1 07/09/202 4 Active Estradiol 0.5 MG Oral Tablet [...] Fluocinolone Acetonide Scalp 0.01 % External Oil (Herscher-Smoothe/FS Scalp) Apply to external ears as needed [...] Advanced directives, counseling/discussion 03/10 Overview (07/20/2008): PROJECT: #[id number], PHYSICIAN LOCUMS URGENT CARE: Angelito Chen MD SUMMARY: Patients with CHD are randomized to darapladib (Lp-PLA2 inhibitor) or placebo in addition to standard of care medications to evaluate incidence of major coronary events. CONTACTS: During normal business hours, contact Clincal Research Coordinator at appropriate clinic location, after hours on-call Clinical Research Coordinator via the [facility] hospital name plate stamping machine operator ([phone]). 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 07/18/2020 04/06/2023 Gastroesophageal reflux dise ase without esophagitis 06/11/2020 03/31/2022 Pain, dental 12/04/2017 06/24/2018 Visual loss 03/29/2017 10/01/2017 Headache, unspecified headache type 03/29/2017 11/11/2017 Neck discomfort 03/29/2017 10/01/2017 Abdominal pain, right upper quadrant 09/04/2016 12/07/2016 Chest pain, non-cardiac 08/09/201607/2018 Overview (08/10/2016): Cath C 07/2016 with no changes - old MOLD HOLDER Diagonal Abnormal nuclear stress test 07/27/2016 11/11/2017 Overview (08/10/2016): anterolat ischemia on nuclear 07/2016, totally expected as she has chronic total diagnonal occlusion Moderate persistent asthma w ithout complication 04/30/2016 05/19/2022 Viral URI with cough 03/01/2016 017 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 Pt called by nurse and advised. * Telephone Encounter - Trina Torres OSA - 04/24/2024 9:57 AM EST Pt contacting Uro/Embossed Or Impressed Lettering Painter today to obtain medical advice. Pt is having issues (undisclosed). Pt. Has an appt on 05/05/2024. Pt. States that this would be too far out for the issues that she is experiencing. Pt is requesting a return call from the uro/wrinkle chaser nurse. Please advise. Thank you. Contact number for pt: [phone] documented in this encounter Plan of Treatment Upcoming Encounters Date Type Department Care Team (Late st Contact Info) Description 04/28/2024 11:15 AM EST Office Visit Ophthalmology, [place] [address] [address] Kenny Hector DO [address] [address] 05/05/2024 11:20 AM EST Office Visit Urogynecology [facility] [address] [place] [address] Alma Segura PA-C [address] [place] [address] 06/13/2024 10:30 AM EDT Office Visit Gastroenterology, [facility] [address] [address] Aster Dawson CRNP [address] [place] [address] 06/20/2024 11:00 AM EDT Office Visit Cardiology, [facility] [address] [place] [address] Valerie Ibrahim CRNP [address] [place] [place] [address] 06/21/2024 3:30 PM EDT Office Visit Ophthalmology, [place] [address] [place] [address] Kenny Hector DO [address] [place] [address] 07/14/2024 11:40 AM EDT Office Visit Family Practice [facility] [address] [address] Rosalinda Peterson CRNP [address] [place] [address] 08/03/2024 9:25 AM EDT Office Visit Urogynecology [facility] [address] [place] [address] Hiro Lyons MD [address] [facility] [address] [place] [address] Nurse Rahel Ramesh [facility] [address] [facility] [address] [place] [address] Health Maintenance Due Date Last Done Comments [...] encounter Medical Devices Implanted Type Area Director Of Video Analytics Device Identifier Shelf Expiration Date Model / Serial / Lot Alloderm 2x4 Sheet [id number] ( 8 Units ) - [id number] - [id number] Implanted:Qty : 8 on 02/04/2015 by Marques Rodriguez MD at OR [facility] Tissue - Human N/A: Esophagus LIFE CELL EMMANUEL 07/19/2016 [id number] / [id number] / [id number] Stent Eso Gw [id number] - [id number] Implanted:Qty : 1 on 02/05/2015 by Marques Rodriguez MD at OR [facility] N/A: Esophagus [employer] 05/19/2017 [id number] / / [id number] documented as of this encounter Advance Directives Documents on File Type Date Recorded Patient Complaint Specialist Expl anation Power of Fish Agent 01/22/2005 POWER OF A TTORNEY DURABLE POWER OF STONE POLISHER HAND * Full Code (Latest Code Status on [...] Relationship Communication Dong Shayla Spouse Health Care [facility] r of Fish Agent Care Teams Pitting Machine Operator Relationship Specialty Start Date End Date Rosalinda Peterson CRNP [address] [address] PCP - General Nurse Practitioner 04/05/24 documented as of this encounter
--- OUTSIDE RECORDS SUMMARY | 2024-08-01 14:22 | External Medical Summary | Summary of Care ---
Author Name Unknown Organization [facility] Address [address] [place] [address] Phone [phone] Care Team Providers Care Review Trainer Name Role Phone Rosalinda Petersonlle BENJY Primary Care Provider Reason for Visit * Reason Comments Eye Problem Encounter Details Date Type Department Care Team (Late st Contact Info) Description 04/28/2024 11:15 AM EST Office Visit Ophthalmology, [place] [address] [address] [facility] [address] [place] [address] Dry eyes, bilateral*; Meibomian gland dysfunction (MGD) of both eyes; Squamous blepharitis of upper and lower eyelids of both eyes; Ocular rosacea Allergies Active Allergy Reactions Criticality Noted Date Comments Adhesive Tape 05/27/2021 Other reaction(s): Rash Chlorhexidine Low 12/30/2020 Other reaction(s): rash, itching Escitalopram Oxalate Itching,Other (Please comment) 09/07/2011 Jittery Ibuprofen 05/19/2022 Swelling, redness, hives Latex 03/18/2011 Rash Paroxetine Hcl 10/24/2015 Foggy/visual impairment documented as of this encounter (statuses as of 04/28/2024) Medications TYLENOL ARTHRITIS PAIN 650 MG PO [...] Fluocinolone Acetonide Scalp 0.01 % External Oil (Ryan-Smoothe/FS Scalp) Apply to external ears as needed [...] Drop before bedtime. 60 Each 11 5 026 Active documented as of this encounter (statuses as of 04/28/2024) Active Problems Problem Noted Date Diagnosed Date Chronic diastolic congestive heart failure 04/14 Heart failure, diastolic, with acute decompensat ion 04/14/2024 Leg mass, right 04/13/2024 Leg cramping 07/12/2023 Leg swelling 08/26/2022 Advanced directives, counseling/discussion 03/10 Overview (07/20/2008): PROJECT: #[id number], FINAL ASSEMBLY AND PACKING SUPERVISOR: Angelito Chen MD SUMMARY: Patients with CHD are randomized to darapladib (Lp-PLA2 inhibitor) or placebo in addition to standard of care medications to evaluate incidence of major coronary events. CONTACTS: During normal business hours, contact Clincal Research Coordinator at appropriate clinic location, after hours on-call Clinical Research Coordinator via the [facility] hospital drop wire operator ([phone]). The study sponsor can be reached at: [...] as of this encounter (statuses as of 04/28/2024) Resolved Problems Problem Noted Date Diagnosed Date Resolved Date Depression, unspecified 12/23/2022 1206/2022 Migraine with aura, not intr actable, without status migrainosus 07/07/2022 07/05/2023 Hematuria, gross 03/04/2021 04/13/2024 History of UTI 03/04/2021 04/13/2024 Coronary artery disease invo lving [place] coronary artery of [place] heart with unstable angina pectoris 07/18/2020 04/06/2023 Gastroesophageal reflux dise ase without esophagitis 06/11/2020 03/31/2022 Pain, dental 12/04/2017 06/24/2018 Visual loss 03/29/2017 10/01/2017 Headache, unspecified headache type 03/29/2017 11/11/2017 Neck discomfort 03/29/2017 10/01/2017 Abdominal pain, right upper quadrant 09/04/2016 12/07/2016 Chest pain, non-cardiac 08/09/20160 07/2018 Overview (08/10/2016): Cath C 07/2016 with no changes - old SIEBEL DEVELOPER Diagonal Abnormal nuclear stress test 07/27/2016 11/11/2017 Overview (08/10/2016): anterolat ischemia on nuclear 07/2016, totally expected as she has chronic total diagnonal occlusion Moderate persistent asthma w ithout complication 04/30/2016 05/19/2022 Viral URI with cough 03/01/2016 017 Coronary artery disease invo lving [place] coronary artery of [place] heart with unstable angina pectoris 10/03/2015 06/11/2020 Overview (08/10/2016): Manager Family: Amador Barry PA-C Pito Gambino Ramesh Hx Ant wall [place] at the age of 45 s/p PTCA of the LAD at [place] S/p Cath 2010, with SIEBEL DEVELOPER of the diag 07/2016 [facility]: moderate ischemia in a large portion of the anterior lateral and lateral myocardium.EF 76% 07/2016 Cath [facility] for atyp back pain and abnl nuclear stress: Patent LAD and RCA, known SIEBEL DEVELOPER of the diagonal. 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 Location: OU Severity: Moderate Quality: Recurrent bouts of pink eye. Also notes excessive tearing. Tobradex drops not helping Exacerbating/Remitting Factors: Denies Associated Sx: Denies Past Ocular History: Pseudophakia OU ( - 2003) Glasses KIERSTEN Retinal tear s/p barrier laser OS (PARS) Eye Medications: Warm compresses Tobradex drops as needed AT's as needed Family Ocular History: Denies ROS: Pt denies acute vision changes Pt denies new onset double vision Pt denies new KING Pt denies new issues surrounding eyes Pt admits to above Please see below for full exam details. Base Eye Exam Visual Acuity (Snellen - Linear) Right Left Dist sc 20/30 +2 20/30 +2 Tonometry (Tonopen, 11:23 AM) Right Left Pressure 17 14 Pupils Dark Light Shape React APD Right 3 2 Round Brisk None Left 3 2 Round Brisk None Pt states when light shining for pupil check she noted there was a solis salamatof around the dot on the screen Visual Moseley (Counting fingers) Right Left Full Full Extraocular Movement Right Left Full Full Neuro/Psych Oriented x3: Yes Mood/Affect: Normal Slit Lamp and Fundus Exam External Exam [...] chamber intraocular lens Posterior chamber intraocular lens Date: 10/14/23 OCT Macula: OD - Compact OS - Compact A/P: Dry Eyes, MGD, blepharitis OU Ocular rosacea -Recommend artificial tears up to 4 times daily -Brand names given - Refresh or Systane -Warm compresses -Dilute baby shampoo scrubs -Start restasis BID OU RTC as scheduled or sooner prn. Kenny Hector DO 04/28/24 I spent a total of 30-39 minutes (exact time 30 mins) on the date of service in preparation, delivery, and documentation of the care provided to Ciarra Mcguire excluding any time spent in the performance of separately billed services or time spent by another provider/QHP. ========= Visual disturbance of shape and size -Long standing visual issues including episodic visual disturbances, light sensitivity, and light/dark dissociation -Examination stable, OCT macula normal Plan: -Discussed and offered additional imaging - carotid doppler, CTA H&N, MRI imaging - because of otherwise normal eye exam and chronicity of these issues - patient would like to hold off on imagingat this time Pseudophakia OU -Looks good Retinal tear, OS -S/p barrier laser -Looks great documented in this encounter Nursing Notes * Ciarra Conde TECH - 04/28/2024 11:11 AM EST Pt presents at clinic today with eye issues. Pt states eyes water excessively. Pt states for the last 2 weeks her eyes have been crusty and pus. She has been using Tobramycin 0.3% and Dexamethasone 0.1% Ophthalmic Suspension, Retirement. Pt states notes from [facility] should be here. documented in this encounter Plan of Treatment Upcoming Encounters Date Type Department Care Team (Late st Contact Info) Description 05/02/2024 3:30 PM EST Office Visit Urogynecology [facility] [address] [address] Hiro Lyons MD [address] [address] 06/13/2024 10:30 AM EDT Office Visit Gastroenterology, [facility] [address] [address] Aster Dawson CRNP [address] [place] [address] 06/20/2024 11:00 AM EDT Office Visit Cardiology, [facility] [address] [address] Valerie Ibrahim CRNP [address] [place] [address] 06/21/2024 3:30 PM EDT Office Visit Ophthalmology, [place] [address] [address] Kenny Hector DO [address] [address] 07/14/2024 11:40 AM EDT Office Visit Family Practice [facility] [address] [address] Rosalinda Peterson CRNP [address] [address] 08/03/2024 9:25 AM EDT Office Visit Urogynecology Lindsay Ramesh [address] [place] [address] Hiro Lyons MD [address] [address] Nurse Rahel Ramesh [address] [place] [address] Health Maintenance Due Date Last Done Comments [...] this encounter Medical Devices Implanted Type Area Mine Motor Operator Device Identifier Shelf Expiration Date Model / Serial / Lot Alloderm 2x4 Sheet [id number] ( 8 Units ) - [id number] - [id number] Implanted:Qty : 8 on 02/04/2015 by Marques Rodriguez MD at OR [facility] Tissue - Human N/A: Esophagus LIFE CELL EMMANUEL 07/19/2016 [id number] / [id number] / [id number] Stent Eso Gw [id number] - [id number] Implanted:Qty : 1 on 02/05/2015 by Marques Rodriguez MD at OR [facility] N/A: Esophagus [employer] 05/19/2017 [id number] / / [id number] documented as of this encounter Visit Diagnoses Diagnosis Dry eyes, bilateral- Primary Tear film insufficiency, unspecified Meibomian gland dysfunction (MGD) of both eyes Squamous blepharitis of upper and lower eyelids of both eyes Ocular rosacea Rosacea documented in this encounter Advance Directives Documents on File Type Date Recorded Patient Electroencephalographic Technician Expl anation Power of Wwe Wrestler 01/22/2005 POWER OF A TTORNEY DURABLE POWER OF PIECE PRESSER * Full Code (Latest Code Status on [...] Mcguire Spouse Health Care Sneha r of Wwe Wrestler Care Teams Review Trainer Relationship Specialty Start Date End Date Rosalinda Peterson CRNP [address] [place] [address] PCP - General Nurse Practitioner 04/05/24 documented as of this encounter
--- OUTSIDE RECORDS SUMMARY | 2024-08-01 14:22 | External Medical Summary ---
Author Name Unknown Address Unknown Organization [facility] [address] [facility] [address] Laboratory Report Ordering Provider Test Date Status SEDA PLAZA 04/24/2024 14:03:17 Final Observation Date Value Abnormality Reference (Units ) Status Color of Urine by Auto 04/24/2024 14:03:17 Yellow Light Yellow, Yellow, Dark Yellow Final Clarity, Urine 04/24/2024 14:03:17 Clear Clear Final Glucose [Mass/volume] in Urine by Automated test strip 04/24/2024 14:03:17 Negative Negative (mg/dL) Final Bilirubin.total [Presence] in Urine by Automated test strip 04/24/2024 14:03:17 Negative Negative Final Ketones [Mass/volume] in Urine by Automated test strip 04/24/2024 14:03:17 Negative Negative (mg/dL) Final Specific gravity, Urine 04/24/2024 14:03:17 1.020 1.003-1.030 Final Hemoglobin [Presence] in Urine by Automated test strip 04/24/2024 14:03:17 Negative Negative Final pH, Urine 04/24/2024 14:03:17 5.5 5.0-7.5 (Units) Final Protein [Mass/volume] in Urine by Automated test strip 04/24/2024 14:03:17 Negative Negative (mg/dL) Final Urobilinogen [Mass/volume] in Urine by Automated test strip 04/24/2024 14:03:17 0.2 0.2, 1.0 (mg/dL) Final Nitrite [Presence] in Urine by Automated test strip 04/24/2024 14:03:17 Negative Negative Final Leukocyte esterase [Presence] in Urine by Automated test strip 04/24/2024 14:03:17 Negative Negative Final Annotation Comment 04/24/2024 14:03:17 Final Screen negative - Microscopi c not performed. Performing Location [facility] [place] [address]
--- OUTSIDE RECORDS SUMMARY | 2024-08-01 14:22 | External Medical Summary | Summary of Care ---
Author Name Unknown Organization [facility] Address [address] [place] [address] Phone [phone] Care Team Providers Care Head Loft Worker Name Role Phone Rosalinda Petersonlle BENJY Primary Care Provider Reason for Visit * Reason Comments Outpatient Testing Encounter Details Date Type Department Care Team (Late st Contact Info) Description 04/24/2024 2:10 PM EST Laboratory Laboratory, [facility] [address] [place] [id number] [facility] [address] [place] [address] Dysuria Allergies Active Allergy Reactions Criticality Noted Date Comments Adhesive Tape 05/27/2021 Other reaction(s): Rash Chlorhexidine Low 12/30/2020 Other reaction(s): rash, itching Escitalopram Oxalate Itching,Other (Please comment) 09/07/2011 Jittery Ibuprofen 05/19/2022 Swelling, redness, hives Latex 03/18/2011 Rash Paroxetine Hcl 10/24/2015 Foggy/visual impairment documented as of this encounter (statuses as of 04/25/2024) Medications TYLENOL ARTHRITIS PAIN 650 MG PO [...] Fluocinolone Acetonide Scalp 0.01 % External Oil ([place]-Smoothe/FS Scalp) Apply to external ears as needed [...] as of this encounter (statuses as of 04/25/2024) Active Problems Problem Noted Date Diagnosed Date Chronic diastolic congestive heart failure 04/14 Heart failure, diastolic, with acute decompensat ion 04/14/2024 Leg mass, right 04/13/2024 Leg cramping 07/12/2023 Leg swelling 08/26/2022 Advanced directives, counseling/discussion 03/10 Overview (07/20/2008): PROJECT: #[id number], CHILD SUPPORT CASE OFFICER: Angelito Chen MD SUMMARY: Patients with CHD are randomized to darapladib (Lp-PLA2 inhibitor) or placebo in addition to standard of care medications to evaluate incidence of major coronary events. CONTACTS: During normal business hours, contact Clincal Research Coordinator at appropriate clinic location, after hours on-call Clinical Research Coordinator via the [facility] hospital shredded filler cutter operator ([phone]). The study sponsor can be reached at: [...] as of this encounter (statuses as of 04/25/2024) Resolved Problems Problem Noted Date Diagnosed Date Resolved Date Depression, unspecified 12/23/2022 120 06/2022 Migraine with aura, not intr actable, without status migrainosus 07/07/2022 07/05/2023 Hematuria, gross 03/04/2021 04/13/2024 History of UTI 03/04/2021 04/13/2024 Coronary artery disease invo lving [place] coronary artery of [place] heart with unstable angina pectoris 07/18/2020 04/06/2023 Gastroesophageal reflux dise ase without esophagitis 06/11/2020 03/31/2022 Pain, dental 12/04/2017 06/24/2018 Visual loss 03/29/2017 10/01/2017 Headache, unspecified headache type 03/29/2017 11/11/2017 Neck discomfort 03/29/2017 10/01/2017 Abdominal pain, right upper quadrant 09/04/2016 12/07/2016 Chest pain, non-cardiac 08/09/201607/2018 Overview (08/10/2016): Cath C 07/2016 with no changes - old [employer] Diagonal Abnormal nuclear stress test 07/27/2016 11/11/2017 Overview (08/10/2016): anterolat ischemia on nuclear 07/2016, totally expected as she has chronic total diagnonal occlusion Moderate persistent asthma w ithout complication 04/30/2016 05/19/2022 Viral URI with cough 03/01/2016 017 Coronary artery disease invo lving [place] coronary artery of [place] heart with unstable angina pectoris 10/03/2015 06/11/2020 Overview (08/10/2016): Key Worker: Amador Barry PA-C 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 Not on file Not on file Not [...] Kaylene Walsh RN documented in this encounter Plan of Treatment Upcoming Encounters Date Type Department Care Team (Late st Contact Info) Description 04/28/2024 11:15 AM EST Office Visit Ophthalmology, [place] [address] [id number] Kenny Hector DO [address] [address] 05/05/2024 11:20 AM EST Office Visit Urogynecology [facility] [address] [place] [address] Alma Segura PA-C [address] [place] [address] 06/13/2024 10:30 AM EDT Office Visit Gastroenterology, [facility] [address] [place] [address] Aster Dawson CRNP [address] [place] [address] 06/20/2024 11:00 AM EDT Office Visit Cardiology, [facility] [address] [place] [address] Valerie Ibrahim CRNP [address] [place] [address] 06/21/2024 3:30 PM EDT Office Visit Ophthalmology, [place] [address] [address] Kenny Hector DO [address] [address] 07/14/2024 11:40 AM EDT Office Visit Family Practice [facility] [address] [place] [address] Rosalinda Clark CRNP [address] [place] [address] 08/03/2024 9:25 AM EDT Office Visit Urogynecology Ezekielvladimir Ramesh [address] [place] [address] Hiro Lyons MD [address] [place] [address] Nurse Rahel Ramesh Bandar [address] [place] [address] Pending Results Name Type Priority Associated Diagnoses Date /Time CULTURE, URINE, QUANTITATIVE Lab Routine Dysuria 04/24/2024 2:03 PM EST Health Maintenance Due Date Last Done Comments [...] this encounter Medical Devices Implanted Type Area Mosaic Layer Device Identifier Shelf Expiration Date Model / Serial / Lot Alloderm 2x4 Sheet [id number] ( 8 Units ) - [id number] - [id number] Implanted:Qty : 8 on 02/04/2015 by Marques Rodriguez MD at OR [facility] Tissue - Human N/A: Esophagus [employer] 07/19/2016 [id number] / [id number] / [id number] Stent Eso Gw [id number] - [id number] Implanted:Qty : 1 on 02/05/2015 by Marques Rodriguez MD at OR [facility] N/A: Esophagus [employer] 05/19/2017 [id number] / / [id number] documented as of this encounter Procedures Procedure Name Priority Date/Time Associated Diagnosis Comments URINALYSIS, REFLEX TO MICROSCOPIC Routine 04/24/2024 2:03 PM EST Dysuria documented in this encounter Results * URINALYSIS, REFLEX TO MICROSCOPIC (04/24/2024 2:03 PM EST) Color, Urine Yellow Light Yellow, Yellow, Dark Yellow 04/24/2024 2:40 PM EST [facility] Clarity, Urine Clear Clear 04/24/2024 2:40 PM EST [facility] Glucose, Urine Negative Negative mg/dL 04/24/2024 2:40 PM EST [facility] Bilirubin, Urine Negative Negative 04/24/2024 2:40 PM EST [facility] Ketone, Urine Negative Negative mg/dL 04/24/2024 2:40 PM EST [facility] Specific [place], Urine 1.020 1.003 - 1.030 04/24/2024 2:40 [...] EST 04/24/2024 2:03 PM EST us Hiro Lyosn MD LAB URINE ORDERABLES Final Res ult [facility] [address] [place] [address] documented in this encounter Visit Diagnoses Diagnosis Dysuria documented in this encounter Advance Directives Documents on File Type Date Recorded Patient Fermentation Scientist Expl anation Power of Plastic Technician 01/22/2005 POWER OF A TTORNEY DURABLE POWER OF IT COMMUNICATIONS SPECIALIST * Full Code (Latest Code Status on [...] Name Relationship Healthcare Agent Relationship Communication [facility] r of Plastic Technician Care Teams Head Loft Worker Relationship Specialty Start Date End Date Rosalinda Peterson CRNP [address] [address] PCP - General Nurse Practitioner 04/05/24 documented as of this encounter
--- OUTSIDE RECORDS SUMMARY | 2024-08-01 14:23 | External Medical Summary | Summary of Care ---
Author Name Unknown Organization [facility] Address [address] [place] [address] Phone [phone] Care Team Providers Care Marketing Operations Manager Name Role Phone Rosalinda Peterson BENJY Primary Care Provider Reason for Visit * Reason Comments Follow Up Pt here for yearly f ull skin exam. Pt concerned with burning skin on face. Encounter Details Date Type Department Care Team (Late st Contact Info) Description 04/05/2024 9:20 AM EST Office Visit Dermatology [address] [place] [address] Jasmin Campbell PA-C [address] [place] [address] [place] [address] Hx of nonmelanoma skin cancer*; Rosacea; Skin cancer screening; Actinic keratosis; Seborrheic keratosis; Multiple nevi; Lentigines Allergies Active Allergy Reactions Criticality Noted Date Comments Adhesive Tape 05/27/2021 Other reaction(s): Rash Chlorhexidine Low 12/30/2020 Other reaction(s): rash, itching Escitalopram Oxalate Itching,Other (Please comment) 09/07/2011 Jittery Ibuprofen 05/19/2022 Swelling, redness, hives Latex 03/18/2011 Rash Paroxetine Hcl 10/24/2015 Foggy/visual impairment documented as of this encounter (statuses as of 04/05/2024) Medications TYLENOL ARTHRITIS PAIN 650 MG PO TBCR Take 1 Tablet by mouth daily. Active Cholecalciferol (VITAMIN D) 2000 UNITS Capsule Take 2,000 Units by mouth daily. Active loperamide (IMODIUM) 2 MG Capsule Take 1 Capsule by mouth as needed for Diarrhea. Active aspirin enteric coated 81 MG TBECIndications:ta kes in the evening Take 1 Tablet by mouth at bedtime. Active Magnesium Oxide 400 (240 Mg) MG Tablet Take 1 Tablet by mouth as needed (muscle cramps). Taking 1/4 tablet Active Cyanocobalamin (B-12) 500 MCG TABS Take [...] 3 3 8:00 PM EDT 11/07/19 23 Active Nitroglycerin 0.4 MG Sublingual Tablet Sublingual (Nitrostat)Indicat ions:ASCVD (arteriosclerotic cardiovascular disease) Place 1 Tablet under the tongue every 5 minutes as needed for Pain, Chest. 75 Tablet 2 4 8:47 AM EST 01/01/20 23 Active Probiotic & Acidophilus Ex St Oral Capsule Take 1 Capsule by mouth every evening. Active Gabapentin 100 MG Oral Capsule (Neurontin) Take 1 capsule by mouth at night 08/11/19 24 Active Ibuprofen 200 MG Oral Tablet (Motrin) Take 1 Tablet by mouth every 4 hours as needed. Active Potassium Chloride Esme ER 10 MEQ Oral Tablet Extended ReleaseIndications :Heart failure, diastolic, with acute decompensation (HCC) Take 1 Tablet by mouth in the morning. 100 Tablet 1 4 3:21 PM EDT 08/25/19 24 Active dilTIAZem HCl ER Coated Beads 120 MG Oral Capsule Extended Release 24 Hour (Cardizem CD)Indications:ASC VD (arteriosclerotic cardiovascular disease),HTN, goal below 140/90 TAKE ONE CAPSULE BY MOUTH EVERY DAY 90 Capsule 3 4 4:11 PM EST 09/06/19 24 025 Active Azithromycin 250 MG Oral Tablet (Zithromax)Indicat ions:Acute maxillary sinusitis, recurrence not specified Two tablets on day one and one tablet daily after til gone. 6 Tablet 09/17/19 24 Active predniSONE 20 MG Oral Tablet (Deltasone)Indicat [...] TUESDAYS, THURSDAYS AND SATURDAYS 90 Tablet 2 4 2:07 PM EDT 10/22/19 24 Active busPIRone HCl [...] mouth every 4 hours as needed. Active Tobramycin-dexAMET Hasone 0.3-0.1 % Ophthalmic Suspension (Tobradex) 1 Drop. 12/15/19 24 Active Fluocinolone Acetonide Scalp 0.01 % External Oil ([place]-Smoothe/FS Scalp) Apply to external ears as needed for itching. 118.28 mL 4 2:17 PM EDT 01/12/20 24 Active Rosuvastatin Calcium 5 MG Oral Tablet (Crestor) Take 1 Tablet by mouth in the morning. 100 Tablet 3 4 5:28 PM EST 02/02/20 24 Active Clotrimazole-Betam ethasone 1-0.05 % External Cream (Lotrisone) Apply topically to affected area 2 times a day. 45 g 4 12:39 PM EST 02/08/20 24 Active Atenolol 50 MG Oral Tablet (Tenormin)Indicati ons:ASCVD (arteriosclerotic cardiovascular disease) TAKE ONE TABLET BY MOUTH TWICE A DAY 180 Tablet 3 4 12:05 PM EST 02/20/20 24 025 Active Furosemide 20 MG Oral Tablet (Lasix)Indications :Lower extremity edema Take 1 Tablet by mouth in the morning. 100 Tablet 3 4 12:40 PM EST 03/18/20 24 Active LORazepam 0.5 MG Oral Tablet (Ativan)Indication s:Anxiety TAKE ONE TABLET BY MOUTH THREE TIMES A DAY NEEDED FOR ANXIETY 90 Tablet 1 5 2:50 PM EST 03/27/19 25 Active metroNIDAZOLE 1 % External Gel (Metrogel)Indicati ons:Rosacea Apply to face daily after washing with soap and water and then SPF 30 daily 45 g 2 04/05/19 25 Active Diclofenac Sodium (VOLTAREN) 1 % gel Place 2 g topically on the skin 2 times a day. To affected area as directed. 100 g 5 08/02/19 20 025 Discontin ued(Medic ation List Clean Up) Desonide 0.05 % External LotionIndications: Dermatitis Apply topically to affected area 2 times a day . Apply to face twice daily as directed 59 mL 07/15/19 22 025 Discontin ued(Medic ation List Clean Up) documented as of this encounter (statuses as of 04/05/2024) Active Problems Problem Noted Date Diagnosed Date Leg cramping 07/12/2023 Leg swelling 08/26/2022 Advanced directives, counseling/discussion 03/10 Overview (07/20/2008): PROJECT: #[id number], BUSINESS SOLUTIONS DIRECTOR: Angelito Chen MD SUMMARY: Patients with CHD are randomized to darapladib (Lp-PLA2 inhibitor) or placebo in addition to standard of care medications to evaluate incidence of major coronary events. CONTACTS: During normal business hours, contact Clincal Research Coordinator at appropriate clinic location, after hours on-call Clinical Research Coordinator via the [facility] hospital rotary swaging machine operator ([phone]). The study sponsor can be reached at: Hematuria, gross 03/04/2021 History of UTI 03/04/2021 Prolapse of vaginal vault after hysterectomy Rectocele 09/13/2020 History of cigarette smoking 09/13/2020 Overview (09/13/2020): 30 pack year Diverticulosis of large intestine without hemorr lucy 08/02/2019 Cystocele, lateral 06/28/2018 NOEL (generalized anxiety disorder) 05/23/2018 ASCVD (arteriosclerotic cardiovascular disease) 03/09/2018 Cardiac pacemaker in situ 11/12/2017 Sick sinus syndrome 11/11/2017 Old NH (myocardial infarction) 11/11/2017 Peripheral vascular disease 10/01/2017 HTN, goal below 130/80 10/03/2015 Anemia due to vitamin B12 deficiency 08/26/2015 Vitamin D deficiency 08/26/2015 DDD (degenerative disc disease), cervical 2013 Gastroesophageal reflux disease with esophagitis 12/21/2011 IBS (irritable bowel syndrome) 06/11/2011 Dyslipidemia 02/28/2009 Overview (02/28/2009): Per Lipid Taxonomy. Generalized osteoarthritis Rosacea documented as of this encounter (statuses as of 04/05/2024) Resolved Problems Problem Noted Date Diagnosed Date Resolved Date Depression, unspecified 12/23/2022 12/0 06/2022 Migraine with aura, not intr actable, without status migrainosus 07/07/2022 07/05/2023 Coronary artery disease invo lving [place] coronary artery of [place] heart with unstable angina pectoris 07/18/2020 04/06/2023 Gastroesophageal reflux dise ase without esophagitis 06/11/2020 03/31/2022 Pain, dental 12/04/2017 06/24/2018 Visual loss 03/29/2017 10/01/2017 Headache, unspecified headache type 03/29/2017 11/11/2017 Neck discomfort 03/29/2017 10/01/2017 Abdominal pain, right upper quadrant 09/04/2016 12/07/2016 Chest pain, non-cardiac 08/09/2016 04/0 07/2018 Overview (08/10/2016): Cath [facility] 07/2016 with no changes - old EDUCATION TEACHER Diagonal Abnormal nuclear stress test 07/27/2016 11/11/2017 Overview (08/10/2016): anterolat ischemia on nuclear 07/2016, totally expected as she has chronic total diagnonal occlusion Moderate persistent asthma w ithout complication 04/30/2016 05/19/2022 Viral URI with cough 03/01/2016 017 Coronary artery disease invo lving [place] coronary artery of [place] heart with unstable angina pectoris 10/03/2015 06/11/2020 Overview (08/10/2016): Mechanical Meter Tester: Amador Barry [facility] Ant wall NH at the age of 45 s/p PTCA of the LAD at [place] S/p Cath 2010, with EDUCATION TEACHER of the diag 07/2016 [facility]: moderate ischemia in a large portion of the anterior lateral and lateral myocardium.EF 76% 07/2016 Cath [facility] for atyp back pain and abnl nuclear stress: Patent LAD and RCA, known EDUCATION TEACHER of the diagonal. Anxiety 05/21/2015 06/24/2018 Paraesophageal hernia 02/04/20152019 Cholelithiasis 11/05/2011 11/11/2017 Old myocardial infarct 10/11/200806/24 Overview (10/11/2008): Modified by Acute NH Protocol #5. Follow-up of anterolateral m yocardial [...] 06/09/2002 10/11/2008 Overview (10/11/2008): Modified by Acute NH Protocol #5. CORONARY ATHEROSCLEROSIS VESSEL NOS 02/15/2002 10/03/2015 Dyslipidemia, goal to be determined 02/15/2002 02/13/2009 Overview (02/13/2009): Per Lipid Taxonomy DIVERTICULITIS OF COLON 07/21 PURE HYPERCHOLESTEROLEM 02/19 Overview (02/28/2009): Per Lipid Taxonomy. Acute NH, anterior wall 09/20 Overview (10/11/2008): Modified by Acute NH Protocol #5. 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 The best protection is sun avoidance. Seek shade if you can, especially between 10am to 4pm (peak sun hours). 2. Use sunscreen with an SPF (Sun Protection Factor - the number on most sunscreen bottles) of 30 or more that protects from Ultraviolet A (UVA) and Ultraviolet B (UVB) wavelength light (strongly recommend SPF 50). This is referred to as broad spectrum sun protection because it protects from most wa velengths in both spectrums of UVA and UVB light. Unfortunately, even though the protection is broad it is not complete, therefore making sun avoidance the best protection. UVB and UVA have both beenimplicated in causing skin cancers. Older sunscreens only protected from UVB and sunscreens with added UVA protection should contain Titanium dioxide, Zinc oxide, or Avobenzone. Other oil free, non-comedogenic lotion with SPF 30 or greater is fine. 3. Use sun protection if outside for 15 minutes or more. Apply 20-30 minutes before going out and reapply every 1-2 hours. No sunscreen is truly water ''proof'' and it will wash away with sweat, swimming and rubbing. 4. Wear tightly woven, loose fitting (cooler) long sleeved clothing, UV-blocking sun glasses (eyes need protection as well) and wide-brimmed hatwear (no straw hats with holes because light still getsthrough). Strongly recommended *Neutrogena Pure and Free Baby SPF 60 (have separate face and body lotions) orCeraVe AM facial lotion (with SPF 30). If looking for non toxic alternatives-look for non-jayme particle zinc. Product examples; Think sport, Think baby, Fit Steps, [facility], Headroom, [place] baby. "Baby" products can be used for all ages. DRY SKIN Regimen to be done DAILY (#1 and #3) and MORNING AND EVENING (#2) 1) Take a warm (NOT HOT) shower daily (try no more or no less) with CeraVe cleanser (in green and white pump) or dove unscented bar soap and only towel off slightly, keep skin damp. Do not use the soap on rash spots, only irritates them more. Use soap over entire body 1-2 times per week, wash underarms and private parts daily. 3) CeraVe cream (in white jar)-[employer] (CHEAPEST), [facility] (has generic brand--$2-4 cheaper might have other ingredients, would not use if we are treating an allergy rash), [employer], [employer]) to be applied on top of affected area(s) MORNING AND EVENING, and entire body at least DAILY. 4) Vaseline (petroleum jelly) to be applied on top of the cerave cream at BEDTIME to affected area(s) only (warned to wear old pajamas to bed due to messiness of procedure). If bad areas are on handsand/or feet, then cover them with brown jersey gloves (cheaper than white cotton gloves)-buy at [employer]. Purchase a chlorine filtered shower head-will cut down on dryness of skin, dandruff of scalp/face(if an issue for you), and could help with breathing/respiratory issues. QUESTIONS? Call Dermatology at during normal business hours or for an emergency, call [phone] and ask to speak to the resident software applications developer. documented in this encounter Progress Notes * Jasmin Campbell PA-C - 04/05/2024 9:20 AM EST SUBJECTIVE: HPI: Ciarra Mcguire is a 78 year old female seen at the request of Elisa Goldstein DO for evaluation and treatment of full skin exam. Annual vulvar exams performed, no vulvar discoloration and/or lesions to be assessed per pt. - Tanning bed history. + Blistering sunburns. No new or changing lesions, per pt. Burning skin on face, dx with rosacea for years, has been on metrogel QOD (only after shower currently). Itch/burn/sting, no acne lesion. No dryness or grittiness daily. Seen by several SP providers in past. Was hospitalized yesterday for HTN. 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 REVIEW OF SYSTEMS: SKIN: No other new or changing moles. HEME/LYMPH: No new or enlarging lumps or bumps. CONSTITUTIONAL: No nausea, vomiting, fevers, chills, diarrhea. No recent unintended weight loss, night sweats, appetite or malaise. RESP: negative MSK/EXT: Negative or as per HPI GI: negative CV: Negative or as per HPI Rest of systems are negative or as per HPI SKIN CANCER HX: Renae (Rlower leg 2006), actinic keratoses Reviewed, same day as visit, 0 [facility] lab work(s)/pathology report(s) as well as those sent by referring provider prior to seeing pt. Past Medical History: Diagnosis Date Actinic keratosis Acute NH, anterior wall (HCC) 2001 Calculus of gallbladder without mention of cholecystitis or obstruction 11/05/2011 Calculus of kidney Cardiac pacemaker in situ 11/12/2017 Clostridioides difficile infection 10/2020 Coronary artery disease involving [place] coronary artery of [place] heart with unstable angina pectoris (HCC) CORONARY [...] for prophylactic hormone replacement therapy (postmenopausal) Old NH (myocardial infarction) 11/11/2017 Old myocardial infarct 10/11/2008 Modified by Acute NH Protocol #5. 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 surgery at [facility] Rectocele Rosacea S/P laparoscopic cholecystectomy 12/30/2020 Dr Conner Chow Shigellosis 05/22/2022 Shig A toxin positive FAMILY HISTORY: Skin CA: None Skin Disorders: none SOCIAL HISTORY: Social History Tobacco Use Smoking status: Former Current packs/day: 0.00 Average packs/day: 0.5 packs/day for 31.0 years (15.5 ttl pk-yrs) Types: Cigarettes Start date: 06/11/1983 Quit date: 06/10/2014 Years since quittin.8 Passive exposure: Past Smokeless tobacco: Never Substance Use Topics Alcohol use: Yes Comment: bloody vasile once a month or so Vaping/E-Cigarette Use Vaping/E-Cigarette Use Never User Passive Exposure No Counseling Given? No Vaping/E-Cigarette Substances Nicotine No Other No Flavoring No THC No Cannabidiol (CBD) No Vaping/E-Cigarette Devices Disposable No Pre-filled or Refillable Cartridge No Refillable Tank No Pre-filled Pod No MEDICA TIONS: Current Outpatient Medications Medication Sig Dispense Refill TYLENOL ARTHRITIS PAIN 650 MG PO TBCR Take 1 Tablet by mouth daily. Cholecalciferol (VITAMIN D) 2000 UNITS Capsule Take 2,000 Units by mouth daily. loperamide (IMODIUM) 2 MG Capsule Take 1 Capsule by mouth as needed for Diarrhea. aspirin enteric coated 81 MG TBEC Take 1 Tablet by mouth at bedtime. Magnesium Oxide 400 (240 Mg) MG Tablet Take 1 Tablet by mouth as needed (muscle cramps). Taking 1/4tablet Cyanocobalamin (B-12) 500 MCG TABS Take by [...] Capsule by mouth as needed for Constipation. Estradiol 0.1 MG/GM Vaginal Cream (Estrace) Apply pea sized amount (0.5 gm) vaginally twice a week at bedtime 42.5 g 3 Nitroglycerin 0.4 MG Sublingual Tablet Sublingual (Nitrostat) Place 1 Tablet under the tongue every5 minutes as needed for Pain, Chest. 75 Tablet 2 Probiotic & Acidophilus Ex St Oral Capsule Take 1 Capsule by mouth every evening. Gabapentin 100 MG Oral Capsule (Neurontin) Take 1 capsule by mouth at night Ibuprofen 200 MG Oral Tablet (Motrin) Take 1 Tablet by mouth every 4 hours as needed. Potassium Chloride Esme ER 10 MEQ Oral Tablet Extended Release Take 1 Tablet by mouth in the morning. 100 Tablet 1 dilTIAZem HCl ER Coated Beads 120 MG Oral Capsule Extended Release 24 Hour (Cardizem CD) TAKE ONE CAPSULE BY MOUTH EVERY DAY 90 Capsule 3 Azithromycin 250 MG Oral Tablet (Zithromax) Two [...] by mouth every 4 hours as needed. Tobramycin-dexAMETHasone 0.3-0.1 % Ophthalmic Suspension (Tobradex) 1 Drop. Fluocinolone Acetonide Scalp 0.01 % External Oil ([place]-Smoothe/FS Scalp) Apply to external ears asneeded for itching. 118.28 mL 0 Rosuvastatin Calcium 5 MG Oral Tablet (Crestor) Take 1 Tablet by mouth in the morning. 100 Tablet 3 Clotrimazole-Betamethasone 1-0.05 % External Cream (Lotrisone) Apply topically to affected area 2 times a day. 45 g 0 Atenolol 50 MG Oral Tablet (Tenormin) TAKE ONE TABLET BY MOUTH TWICE A DAY 180 Tablet 3 Furosemide 20 MG Oral Tablet (Lasix) Take 1 Tablet by mouth in the morning. 100 Tablet 3 LORazepam 0.5 MG Oral Tablet (Ativan) TAKE ONE TABLET BY MOUTH THREE TIMES A DAY NEEDED FOR ANXIETY 90 Tablet 1 No current facility-administered medications for this visit. ALLERGY: Adhesive tape, Escitalopram oxalate, Ibuprofen, Latex, Paxil [paroxetine hcl], and Chlorhexidine OBJECT МАРИНА: GEN: alert, no distress, appears oriented, pleasant, and cooperative. SKIN: Detailed exam of hair, face including lids and lips, neck, chest, abdomen, back, bilateral upper ext. (arm, hand, fingers), bilateral lower ext. (leg, foot, toes), palpation of scalp, fingernails, toenails, inguinal areas, groin (mons pubis), buttocks, and anus completed: 1. R forehead-pink scaly papule. 2. Central face-Moderate erythematous base with telangiectasias, no inflammatory papules. 3. Trunk/bilat arms and legs-About 35 total; 2-4mm light and light-medium brown macules and soft papules. 4. Face/neck/trunk/bilat arms and legs-Some well defined light to medium brown homogenous stellate macules. 5. Trunk/legs-sharply defined, variegated brown, waxy flat papules with velvety to finely verrucoussurfaces. ASSESS MENT/PLAN: 1. Actinic keratosis on R forehead-Cryosurgery explained to the patient. Discussed risk of blistering, crusting, infection, scarring, reoccurrence of lesions, hypopigmentation, post inflammatory hyperpigmentation with pt prior to procedure. Verbal consent obtained. Time out called immediately priorto procedure and patient identification and site verified. Cryo therapy performed with Liquid Nitrogen via cryo spray unit to lesion (s) noted above. Location noted in physical exam. Post op course explained. 2. E-T acne rosacea- Start metrogel 0.1% gel QD with SPF 30+ moisturizing lotion (given Cerave samples at visit) 3. Nevi on trunk/bilat arms and legs-no tx needed, pt given reassurance and written education aboutdiagnosis. Mole brochure given and ABCDE's discussed with patient. Annual full body skin examination (unless Irecommended otherwise), self-examination, and sun protection (SPF 30+ daily to sun exposed areas, with reapplication every 1-2 hours when out in sun for long periods of time) advised and discussed. Re commended sooner follow up for new or changing lesions. These changes include rapid enlargement, changes in color or shape or symptoms, bleeding, or other concerns. The common features and behavior of non-melanoma skin cancers (e.g. BCC/SCC) as well as the ABCDEs and ugly duckling features of melanoma were also reviewed. 4. Lentigines on face/neck/trunk/bilat arms and legs-No treatment needed, pt given reassurance. 5. Seborrheic/Benign Keratosis(-es) on trunk/legs-no tx needed, pt given reassurance and written education about diagnosis. Patient alone today. Photo(s) of #1-5 taken, pt verbally consented to having photo(s) taken. Follow-up: 2 years for full skin exam Photos and chart reviewed by Dr. Chandler Adam. Presum ed diagnoses, expected natural histories, and management options discussed with the patient at length. Questions were addressed and anticipatory guidance provided. They were instructed to contact me if additional questions, concerns, or problems develop in the interim. -There were no barriers to learning and no other pain was related to today's visit. The patient and/or person accompanying patient demonstrates understanding of the visit and treatment. Jasmin Campbell PA-C 04/05/2024 9:24 AM Dermatology [address] [place] [id number] documented in this encounter Nursing Notes * Rylee Castro LPN - 04/05/2024 9:05 AM EST Patient identified by full name and date of Chief Complaint Patient presents with Follow Up Pt here for yearly full skin exam. Pt concerned with burning skin on face. documented in this encounter Plan of Treatment Upcoming Encounters Date Type Department Care Team (Late st Contact Info) Description 04/13/2024 10:40 AM EST Office Visit Family Practice [facility] [address] [place] [address] Rosalinda Peterson CRNP [address] [place] [address] 05/25/2024 11:00 AM EST Office Visit Cardiology, [facility] [address] [place] [address] Amador Uriarte PA-C [address] [place] [address] 06/13/2024 10:30 AM EDT Office Visit Gastroenterology, [facility] [address] [place] [address] Aster Dawson CRNP [address] [place] [address] 06/20/2024 11:00 AM EDT Office Visit Cardiology, [facility] [address] [facility] [place] [address] Valerie Ibrahim CRNP [address] [place] [address] 06/21/2024 3:30 PM EDT Office Visit Ophthalmology, [place] [address] [place] [address] Kenny Hector DO [address] [place] [address] 08/03/2024 9:25 AM EDT Office Visit Urogynecology [facility] [address] [place] [address] Hiro Lyons MD [address] [place] [address] Nurse Rahel Ramesh [address] [place] [address] Health Maintenance Due Date Last Done Comments [...] this encounter Medical Devices Implanted Type Area Neon Glass Bender Device Identifier Shelf Expiration Date Model / Serial / Lot Alloderm 2x4 Sheet [id number] ( 8 Units ) - [id number] - [id number] Implanted:Qty : 8 on 02/04/2015 by Marques Rodriguez MD at [place] [facility] Tissue - Human N/A: Esophagus [employer]MMAN[employer] 07/19/2016 [id number] / [id number] / [id number] Stent Eso Gw [id number] - [id number] Implanted:Qty : 1 on 02/05/2015 by Marques Rodriguez MD at OR [facility] N/A: Esophagus [employer] 05/19/2017 [id number] / / [id number] documented as of this encounter Procedures Procedure Name Priority Date/Time Associated Diagnosis Comments DERM EXAM - DERM (IMAGES ONLY, NO REPORT) Routine 04/05/2024 9:41 AM EST Hx of nonmelanoma skin cancer Rosacea Skin cancer screening Actinic keratosis Seborrheic keratosis Multiple nevi Lentigines documented in this encounter Results * DERM EXAM - DERM (IMAGES ONLY, NO REPORT) (04/05/2024 9:41 AM EST) Narrative Scheduling, Silent - 04/05/2024 9:41 AM EST This is an imaging study not interpreted or resulted by a [facility] or [facility] contracted radiologist. Jasmin Campbell PA-C RADIOLOGY ([facility] ) Final Result documented in this encounter Visit Diagnoses Diagnosis Hx of nonmelanoma skin cancer- Primary Personal history of other malignant neoplasm of skin Rosacea Skin cancer screening Screening for malignant neoplasm of the skin Actinic keratosis Seborrheic keratosis Other seborrheic keratosis Multiple nevi Benign neoplasm of skin, site unspecified Lentigines Other dyschromia documented in this encounter Advance Directives Documents on File Type Date Recorded Patient Acid Leveler Expl anation Power of Slurry Worker 01/22/2005 POWER OF A TTORNEY DURABLE POWER OF OVEN LOADER * Full Code (Latest Code Status on [...] Shayla Spouse Health Care Sneha r of Slurry Worker Care Teams Marketing Operations Manager Relationship Specialty Start Date End Date Rosalinda Peterson CRNP [address] [address] PCP - General Nurse Practitioner 04/05/24 documented as of this encounter
--- OUTSIDE RECORDS SUMMARY | 2024-08-01 14:23 | External Medical Summary | Summary of Care ---
Author Name Unknown Organization [facility] Address [address] [place] [address] Phone [phone] Care Team Providers Care Therapeutic Recreation Assistant Name Role Phone Rosalinda Peterson BENJY Primary Care Provider Encounter Details Date Type Department Care Team (Late st Contact Info) Description 04/11/2024 Population Health External Data Unspecified Department Allergies Active Allergy Reactions Criticality Noted Date Comments Adhesive Tape 05/27/2021 Other reaction(s): Rash Chlorhexidine Low 12/30/2020 Other reaction(s): rash, itching Escitalopram Oxalate Itching,Other (Please comment) 09/07/2011 Jittery Ibuprofen 05/19/2022 Swelling, redness, hives Latex 03/18/2011 Rash Paroxetine Hcl 10/24/2015 Foggy/visual impairment documented as of this encounter (statuses as of 04/11/2024) Medications TYLENOL ARTHRITIS PAIN 650 MG PO [...] g 3 1 Active AMBULATORY MISCELLANEOUS MEDICATION 1/4 CBD gummy [...] Take 1 capsule by mouth at night 4 Active Ibuprofen 200 MG Oral Tablet (Motrin) Take 1 Tablet by mouth every 4 hours as needed. Active Potassium Chloride Esme ER 10 MEQ Oral Tablet Extended ReleaseIndications :Heart failure, diastolic, with acute decompensation (HCC) Take 1 Tablet by mouth in the morning. 100 Tablet 1 08/28/2023 3:21 PM EDT 4 Active dilTIAZem HCl ER Coated Beads 120 MG Oral Capsule Extended Release 24 Hour (Cardizem CD)Indications:ASC VD (arteriosclerotic cardiovascular disease),HTN, goal below 140/90 TAKE ONE CAPSULE BY MOUTH EVERY DAY 90 Capsule 3 03/01/2024 4:11 PM EST 4 025 Active Azithromycin 250 MG Oral Tablet (Zithromax)Indicat ions:Acute maxillary sinusitis, recurrence not specified Two tablets on day one and one tablet daily after til gone. 6 Tablet 4 Active predniSONE 20 MG Oral Tablet (Deltasone)Indicat [...] 0.3-0.1 % Ophthalmic Suspension (Tobradex) 1 Drop. 4 Active Fluocinolone Acetonide Scalp 0.01 % External Oil ([place]-Smoothe/FS Scalp) Apply to external ears as needed for itching. 118.28 mL 01/13/2024 2:17 PM EDT 4 Active Rosuvastatin Calcium 5 MG Oral Tablet (Crestor) Take 1 Tablet by mouth in the morning. 100 Tablet 3 02/03/2024 5:28 PM EST 4 Active Clotrimazole-Betam ethasone 1-0.05 % External Cream (Lotrisone) Apply topically to affected area 2 times a day. 45 g 02/11/2024 12:39 PM EST 4 Active Atenolol 50 MG Oral Tablet (Tenormin)Indicati ons:ASCVD (arteriosclerotic cardiovascular disease) TAKE ONE TABLET BY MOUTH TWICE A DAY 180 Tablet 3 02/22/2024 12:05 PM EST 4 025 Active Furosemide 20 MG Oral Tablet (Lasix)Indications :Lower extremity edema Take 1 Tablet by mouth in the morning. 100 Tablet 3 03/21/2024 12:40 PM EST 4 Active LORazepam 0.5 MG Oral Tablet (Ativan)Indication s:Anxiety TAKE ONE TABLET BY MOUTH THREE TIMES A DAY NEEDED FOR ANXIETY 90 Tablet 1 03/27/2024 2:50 PM EST 5 Active metroNIDAZOLE 1 % External Gel (Metrogel)Indicati ons:Rosacea Apply to face daily after washing with soap and water and then use SPF 30 daily 60 g 2 04/07/2024 3:14 PM EST 5 Active documented as of this encounter (statuses as of 04/11/2024) Active Problems Problem Noted Date Diagnosed Date Leg cramping 07/12/2023 Leg swelling 08/26/2022 Advanced directives, counseling/discussion 03/10 Overview (07/20/2008): PROJECT: #[id number], HORTICULTURE PROFESSOR: Angelito Chen MD SUMMARY: Patients with CHD are randomized to darapladib (Lp-PLA2 inhibitor) or placebo in addition to standard of care medications to evaluate incidence of major coronary events. CONTACTS: During normal business hours, contact Clincal Research Coordinator at appropriate clinic location, after hours on-call Clinical Research Coordinator via the [facility] hospital gear cutting machine set up operator ([phone]). The study sponsor can be reached at: [...] as of this encounter (statuses as of 04/11/2024) Resolved Problems Problem Noted Date Diagnosed Date Resolved Date Depression, unspecified 12/23/2022 1206/2022 Migraine with aura, not intr actable, without status migrainosus 07/07/2022 07/05/2023 Coronary artery disease invo lving three affiliated coronary artery of three affiliated heart with unstable angina pectoris 07/18/2020 04/06/2023 Gastroesophageal reflux dise ase without esophagitis 06/11/2020 03/31/2022 Pain, dental 12/04/2017 06/24/2018 Visual loss 03/29/2017 10/01/2017 Headache, unspecified headache type 03/29/2017 11/11/2017 Neck discomfort 03/29/2017 10/01/2017 Abdominal pain, right upper quadrant 09/04/2016 12/07/2016 Chest pain, non-cardiac 08/09/2016 040 07/2018 Overview (08/10/2016): Cath [facility] 07/2016 with no changes - old RADIO PROGRAM CHECKER Diagonal Abnormal nuclear stress test 07/27/2016 11/11/2017 Overview (08/10/2016): anterolat ischemia on nuclear 07/2016, totally expected as she has chronic total diagnonal occlusion Moderate persistent asthma w ithout complication 04/30/2016 05/19/2022 Viral URI with cough 03/01/2016 017 Coronary artery disease invo lving three affiliated coronary artery of three affiliated heart with unstable angina pectoris 10/03/2015 06/11/2020 Overview (08/10/2016): Expense Analyst: Amador Barry PA-[facility] Hx Ant wall [place] at the age of 45 s/p PTCA of the LAD at [place] S/p Cath 2010, with RADIO PROGRAM CHECKER of the diag 07/2016 [facility]: moderate ischemia in a large portion of the anterior lateral and lateral myocardium.EF 76% 07/2016 Cath [facility] for atyp back pain and abnl nuclear stress: Patent LAD and RCA, known RADIO PROGRAM CHECKER of the diagonal. 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 Not on file Not on file [...] 10:40 AM EST Office Visit Family Practice [facility] [address] [address] Rosalinda Peterson CRNP [address] [place] [address] 05/25/2024 11:00 AM EST Office Visit Cardiology, [facility] [address] [address] Amador Uriarte PA-C [address] [place] [address] 06/13/2024 10:30 AM EDT Office Visit Gastroenterology, [facility] [address] [address] Aster Dawson CRNP [address] [place] [address] 06/20/2024 11:00 AM EDT Office Visit Cardiology, [facility] [address] [facility] [place] [address] Valerie Ibrahim CRNP [address] [place] [place] [address] 06/21/2024 3:30 PM EDT Office Visit Ophthalmology, [place] [address] [address] Kenny Hector DO [address] [place] [address] 08/03/2024 9:25 AM EDT Office Visit Urogynecology Lindsay Gadiel [address] [place] [address] Hiro Lyons MD [address] [place] [address] Nurse Rahel Ramesh [address] [place] [address] Health Maintenance Due Date Last Done Comments [...] this encounter Medical Devices Implanted Type Area Group Exercise Class Instructor Device Identifier Shelf Expiration Date Model / Serial / Lot Alloderm 2x4 Sheet [id number] ( 8 Units ) - [id number] - [id number] Implanted:Qty : 8 on 02/04/2015 by Marques Rodriguez MD at [place] [facility] Tissue - Human N/A: Esophagus LIFE CELL EMMANUEL 07/19/2016 [id number] / [id number] / [id number] Stent Eso Gw [id number] - [id number] Implanted:Qty : 1 on 02/05/2015 by Marques Rodriguez MD at [place] [facility] N/A: Esophagus AL[employer]US INC 05/19/2017 [id number] / / [id number] documented as of this encounter Advance Directives Documents on File Type Date Recorded Patient Documentum Consultant Expl anation Power of Electronic Parts Designer 01/22/2005 POWER OF A TTORNEY DURABLE POWER OF BUS TRANSPORTATION MANAGER * Full Code (Latest Code Status [...] Mcguire Spouse Health Care Sneha r of Electronic Parts Designer Care Teams Therapeutic Recreation Assistant Relationship Specialty Start Date End Date Rosalinda Peterson CRNP [address] [address] PCP - General Nurse Practitioner 04/05/24 documented as of this encounter
--- OUTSIDE RECORDS SUMMARY | 2024-08-01 14:23 | External Medical Summary | Summary of Care ---
Author Name Unknown Organization [facility] Address [address] [place] [address] Phone [phone] Care Team Providers Care Prefitter Doors Name Role Phone Rosalinda Peterson Primary Care Provider Reason for Visit * Reason Onset Date Comments Referral 04/13/2024 Encounter Details Date Type Department Care Team (Late st Contact Info) Description 04/13/2024 Telephone Family Practice [facility] [address] [place] [facility] [place] [address] Rosalinda Peterson CRNP [address] [place] [address] Referral Allergies Active Allergy Reactions Criticality Noted Date Comments Adhesive Tape 05/27/2021 Other reaction(s): Rash Chlorhexidine Low 12/30/2020 Other reaction(s): rash, itching Escitalopram Oxalate Itching,Other (Please comment) 09/07/2011 Jittery Ibuprofen 05/19/2022 Swelling, redness, hives Latex 03/18/2011 Rash Paroxetine Hcl 10/24/2015 Foggy/visual impairment documented as of this encounter (statuses as of 04/13/2024) Medications TYLENOL ARTHRITIS PAIN 650 MG PO [...] Fluocinolone Acetonide Scalp 0.01 % External Oil ([place]-Smoothe/FS Scalp) Apply to external ears as needed [...] mouth at bedtime. 90 Tablet 3 5 Active LORazepam 0.5 MG Oral Tablet (Ativan)Indication s:NOEL (generalized anxiety disorder) Take 1 Tablet by mouth daily as needed for Anxiety. 90 Tablet 5 Active Furosemide 20 MG Oral Tablet (Lasix)Indications :Lower extremity edema Take 0.5 Tablets by mouth in the morning. 100 Tablet 3 5 Active documented as of this encounter (statuses as of 04/13/2024) Active Problems Problem Noted Date Diagnosed Date Leg mass, right 04/13/2024 Leg cramping 07/12/2023 Leg swelling 08/26/2022 Advanced directives, counseling/discussion 03/10 Overview (07/20/2008): PROJECT: #[id number], FLOOR COVERINGS INSTALLER: Angelito Chen MD SUMMARY: Patients with CHD are randomized to darapladib (Lp-PLA2 inhibitor) or placebo in addition to standard of care medications to evaluate incidence of major coronary events. CONTACTS: During normal business hours, contact Clincal Research Coordinator at appropriate clinic location, after hours on-call Clinical Research Coordinator via the [facility] hospital operator maintainer ([phone]). The study sponsor can be reached at: [...] as of this encounter (statuses as of 04/13/2024) Resolved Problems Problem Noted Date Diagnosed Date Resolved Date Depression, unspecified 12/23/2022 12/0 06/2022 Migraine with aura, not intr actable, without status migrainosus 07/07/2022 07/05/2023 Hematuria, gross 03/04/2021 04/13/2024 History of UTI 03/04/2021 04/13/2024 Coronary artery disease invo lving [place] coronary artery of [place] heart with unstable angina pectoris 07/18/2020 04/06/2023 Gastroesophageal reflux dise ase without esophagitis 06/11/2020 03/31/2022 Pain, dental 12/04/2017 06/24/2018 Visual loss 03/29/2017 10/01/2017 Headache, unspecified headache type 03/29/2017 11/11/2017 Neck discomfort 03/29/2017 10/01/2017 Abdominal pain, right upper quadrant 09/04/2016 12/07/2016 Chest pain, non-cardiac 08/09/201607/2018 Overview (08/10/2016): Cath [facility] 07/2016 with no changes - old BARREL DEDENTING MACHINE OPERATOR Diagonal Abnormal nuclear stress test 07/27/2016 11/11/2017 Overview (08/10/2016): anterolat ischemia on nuclear 07/2016, totally expected as she has chronic total diagnonal occlusion Moderate persistent asthma w ithout complication 04/30/2016 05/19/2022 Viral URI with cough 03/01/2016 017 Coronary artery disease invo lving [place] coronary artery of [place] heart with unstable angina pectoris 10/03/2015 06/11/2020 Overview (08/10/2016): Mac Developer: Amador Barry PA-C Ramesh Hx Ant wall [place] at the age of 45 s/p PTCA of the LAD at [place] S/p Cath 2010, with BARREL DEDENTING MACHINE OPERATOR of the diag 07/2016 [facility]: moderate ischemia in a large portion of the anterior lateral and lateral myocardium.EF 76% 07/2016 Cath [facility] for atyp back pain and abnl nuclear stress: Patent LAD and RCA, known BARREL DEDENTING MACHINE OPERATOR of the diagonal. 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 Thank you. documented in this encounter Plan of Treatment Upcoming Encounters Date Type Department Care Team (Late st Contact Info) Description 04/17/2024 10:30 AM EST Imaging Radiology [facility] 2nd Floor, [place] [address] [place] [address] 05/25/2024 11:00 AM EST Office Visit Cardiology, [facility] [address] [place] [address] Amador Uriarte PA-C [address] [place] [address] 06/13/2024 10:30 AM EDT Office Visit Gastroenterology, [facility] [place] [address] Aster Dawson CRNP [address] [place] [address] 06/20/2024 11:00 AM EDT Office Visit Cardiology, [facility] [address] [place] [address] Valerie Ibrahim CRNP [address] [place] [address] 06/21/2024 3:30 PM EDT Office Visit Ophthalmology, [place] [address] [address] Kenny Hector DO [address] [place] [address] 07/14/2024 11:40 AM EDT Office Visit Family Practice [facility] [address] [address] Roslainda Peterson CRNP [address] [place] [address] 08/03/2024 9:25 AM EDT Office Visit Urogynecology Lindsay Ramesh [address] [place] [address] Hiro Lyons MD [address] [place] [address] Nurse Rahel Ramesh [address] [place] [address] Health Maintenance Due Date Last Done Comments [...] this encounter Medical Devices Implanted Type Area Pan Devulcanizer Helper Device Identifier Shelf Expiration Date Model / Serial / Lot Alloderm 2x4 Sheet [id number] ( 8 Units ) - [id number] - [id number] Implanted:Qty : 8 on 02/04/2015 by Marques Rodriguez MD at OR [facility] Tissue - Human N/A: Esophagus LIFE CELL EMMANUEL 07/19/2016 [id number] / [id number] / [id number] Stent Eso Gw [id number] - [id number] Implanted:Qty : 1 on 02/05/2015 by Marques Rodriguez MD at OR [facility] N/A: Esophagus [employer]US INC 05/19/2017 [id number] / / [id number] documented as of this encounter Advance Directives Documents on File Type Date Recorded Patient General Road Production Manager Expl anation Power of Incising Machine Operator 01/22/2005 POWER OF A TTORNEY DURABLE POWER OF SUPERINTENDENT TRANSPORTATION * Full Code (Latest Code Status on [...] Name Relationship Healthcare Agent Relationship Communication Dong Leitzell Spouse Health Care Sneha r of Incising Machine Operator Care Teams Prefitter Doors Relationship Specialty Start Date End Date Rosalinda Peterson CRNP [address] [address] PCP - General Nurse Practitioner 04/05/24 documented as of this encounter
--- OUTSIDE RECORDS SUMMARY | 2024-08-01 14:23 | External Medical Summary | Summary of Care ---
Author Name Unknown Organization [facility] Address [address] [place] [address] Phone [phone] Care Team Providers Care Hand Binder Cutter Name Role Phone Rosalinda Peterson Primary Care Provider Reason for Visit * Reason Onset Date Comments Referral 04/13/2024 Encounter Details Date Type Department Care Team (Late st Contact Info) Description 04/13/2024 Telephone Family Practice [facility] [address] [facility] [place] [address] Rosalinda Peterson CRNP [address] [place] [facility] [place] [address] Referral Allergies Active Allergy Reactions Criticality [...] Fluocinolone Acetonide Scalp 0.01 % External Oil ([place]-Smoothe/FS Scalp) Apply to external ears as [...] Advanced directives, counseling/discussion 03/10 Overview (07/20/2008): PROJECT: #[id number], CLIENT SUPPORT CONSULTANT: Angelito Chen MD SUMMARY: Patients with CHD are randomized to darapladib (Lp-PLA2 inhibitor) or placebo in addition to standard of care medications to evaluate incidence of major coronary events. CONTACTS: During normal business hours, contact Clincal Research Coordinator at appropriate clinic location, after hours on-call Clinical Research Coordinator via the [facility] hospital shaker plate operator ([phone]). The study sponsor can be reached at: [...] 03/04/2021 04/13/2024 Coronary artery disease invo lving j[place] coronary artery of jena heart with unstable angina pectoris 07/18/2020 04/06/2023 Gastroesophageal reflux dise ase without esophagitis 06/11/2020 03/31/2022 Pain, dental 12/04/2017 06/24/2018 Visual loss 03/29/2017 10/01/2017 Headache, unspecified headache type 03/29/2017 11/11/2017 Neck discomfort 03/29/2017 10/01/2017 Abdominal pain, right upper quadrant 09/04/2016 12/07/2016 Chest pain, non-cardiac 08/09/201607/2018 Overview (08/10/2016): Cath [facility] 07/2016 with no changes - old PEARL PELLER Diagonal Abnormal nuclear stress test 07/27/2016 11/11/2017 Overview (08/10/2016): anterolat ischemia on nuclear 07/2016, totally expected as she has chronic total diagnonal occlusion Moderate persistent asthma w ithout complication 04/30/2016 05/19/2022 Viral URI with cough 03/01/2016 017 Coronary artery disease invo lving j[place] coronary artery of jena heart with unstable angina pectoris 10/03/2015 06/11/2020 Overview (08/10/2016): Target Protection Specialist: Amador Barry PA-C Ramesh Hx Ant wall [place] at the age of 45 s/p PTCA of the LAD at [place] S/p Cath 2010, with PEARL PELLER of the diag 07/2016 [facility]: moderate ischemia in a large portion of the anterior lateral and lateral myocardium.EF 76% 07/2016 Cath [facility] for atyp back pain and abnl nuclear stress: Patent LAD and RCA, known PEARL PELLER of the diagonal. Anxiety 05/21/2015 06/24/2018 Paraesophageal [...] mRNA, LNP-s, No Pre serve, 2-Dose Series ([employer]) 02/11/2021,06/10/2020,05/15/2020 COVID-19, MRNA-LNP, PF, 30 M CG/0.3 mL, 12 YRS AND ABOVE, IM 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 Thank you. documented in this encounter Plan of Treatment Upcoming Encounters Date Type Department Care Team (Late st Contact Info) Description 04/17/2024 10:30 AM EST Imaging Radiology [facility] 2nd Floor, [place] [address] [place] [address] 05/25/2024 11:00 AM EST Office Visit Cardiology, [facility] [address] [place] [address] Amador Uriarte PA-C [address] [place] [address] 06/13/2024 10:30 AM EDT Office Visit Gastroenterology, [facility] [address] [place] [address] Aster Dawson CRNP [address] [place] [address] 06/20/2024 11:00 AM EDT Office Visit Cardiology, [facility] [address] [place] [address] Valerie Ibrahim CRNP [address] [place] [address] 06/21/2024 3:30 PM EDT Office Visit Ophthalmology, [place] [address] [address] Kenny Hector DO [address] [address] 07/14/2024 11:40 AM EDT Office Visit Family Practice [facility] [address] [place] [address] Rosalinda Peterson CRNP [address] [place] [address] 08/03/2024 9:25 AM EDT Office Visit Urogynecology [facility] [address] [place] [address] Hiro Lyons MD [address] [place] [address] Nurse Rahel Ramesh Rust [address] [place] [address] Health Maintenance Due Date Last Done Comments [...] this encounter Medical Devices Implanted Type Area Boiler Plant Worker Device Identifier Shelf Expiration Date Model / Serial / Lot Alloderm 2x4 Sheet [id number] ( 8 Units ) - [id number] - [id number] Implanted:Qty : 8 on 02/04/2015 by Marques Rodriguez MD at OR [facility] Tissue - Human N/A: Esophagus LIFE CELL EMMANUEL 07/19/2016 [id number] / [id number] / [id number] Stent Eso Gw [id number] - [id number] Implanted:Qty : 1 on 02/05/2015 by Marques Rodriguez MD at OR [facility] N/A: Esophagus [employer]US INC 05/19/2017 [id number] / / [id number] documented as of this encounter Advance Directives Documents on File Type Date Recorded Patient Lawyer Criminal Expl anation Power of Wire Frame Lamp Shade Maker 01/22/2005 POWER OF A TTORNEY DURABLE POWER OF HOUSE MOVER * Full Code (Latest Code Status [...] Carpiojoyce Spouse Health Care Sneha r of Wire Frame Lamp Shade Maker Care Teams Hand Binder Cutter Relationship Specialty Start Date End Date Rosalinda Peterson CRNP [address] [address] PCP - General Nurse Practitioner 04/05/24 documented as of this encounter
--- OUTSIDE RECORDS SUMMARY | 2024-08-01 14:23 | External Medical Summary | Summary of Care ---
Author Name Unknown Organization [facility] Address [address] [place] [address] Phone [phone] Care Team Providers Care Organ Tuner Name Role Phone Rosalinda Peterson BENJY Primary Care Provider Reason for Visit * Reason Comments Follow Up Pt here for yearly f ull skin exam. Pt concerned with burning skin on face. Encounter Details Date Type Department Care Team (Late st Contact Info) Description 04/05/2024 9:20 AM EST Office Visit Dermatology [address] [place] [address] Jasmin Campbell PA-C [address] [place] [address] [place] [address] Hx of nonmelanoma skin cancer*; Rosacea; Skin [...] Fluocinolone Acetonide Scalp 0.01 % External Oil ([place]-Smoothe/FS Scalp) Apply to external ears as needed [...] Advanced directives, counseling/discussion 03/10 Overview (07/20/2008): PROJECT: #[id number], GARAGE DOOR OPENER INSTALLER: Angelito Chen MD SUMMARY: Patients with CHD are randomized to darapladib (Lp-PLA2 inhibitor) or placebo in addition to standard of care medications to evaluate incidence of major coronary events. CONTACTS: During normal business hours, contact Clincal Research Coordinator at appropriate clinic location, after hours on-call Clinical Research Coordinator via the [facility] hospital twitchell operator ([phone]). 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 Product examples; Think sport, Think baby, He[employer]Pay, AccessData, BeThereRewards, [place] baby. "Baby" products can be used [...] are treating an allergy rash), [facility], [facility]) to be applied on top of affected [...] gloves (cheaper than white cotton gloves)-buy at [employer]. Purchase a chlorine filtered shower head-will cut down on dryness of skin, dandruff of scalp/face(if an issue for you), and could help with breathing/respiratory issues. QUESTIONS? Call Dermatology at during normal business hours or for an emergency, call [phone] and ask to speak to the resident professor of religion. documented in this encounter Progress Notes * Chandler Adam MD - 04/05/2024 1:11 PM EST I have seen and examined the patient via teledermatology review of chart note and photos with Jasmin Campbell PA-C. I have reviewed and agree with the assessment and plan. * Jasmin Campbell PA-C - 04/05/2024 9:20 [...] in past. Was hospitalized yesterday for HTN. Supervisor Blasting Documentation Patient offered lease attendant and declined. REVIEW OF SYSTEMS: SKIN: No [...] keratoses Reviewed, same day as visit, 0 [facility] Dermatology lab work(s)/pathology report(s) as well as those sent by referring provider prior to seeing pt. Past Medical History: Diagnosis Date Actinic keratosis Acute MA, anterior wall ([facility]) 2001 Calculus of gallbladder without mention of cholecystitis or obstruction 11/05/2011 Calculus of kidney Cardiac pacemaker in situ 11/12/2017 Clostridioides difficile infection 10/2020 Coronary artery disease involving little shell tribe coronary artery of little shell tribe heart with unstable angina pectoris (HCC) CORONARY [...] for prophylactic hormone replacement therapy (postmenopausal) Old MA (myocardial infarction) 11/11/2017 Old myocardial infarct 10/11/2008 Modified by Acute MA Protocol #5. 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 surgery at [facility] Rectocele Rosacea S/P laparoscopic cholecystectomy 12/30/2020 Dr [...] Fluocinolone Acetonide Scalp 0.01 % External Oil ([place]-Smoothe/FS Scalp) Apply to external ears asneeded for [...] Jasmin Campbell PA-C 04/05/2024 9:24 AM Dermatology [address] [place] [address] documented in this encounter Nursing Notes * [...] 10:40 AM EST Office Visit Family Practice [facility] [address] [place] [address] Rosalinda Peterson CRNP [address] [place] [address] 05/25/2024 11:00 AM EST Office Visit Cardiology, [facility] [address] [place] [address] Amador Uriarte PA-C [address] [place] [address] 06/13/2024 10:30 AM EDT Office Visit Gastroenterology, [facility] [address] [place] [address] Aster Dawson CRNP [address] [place] [address] 06/20/2024 11:00 AM EDT Office Visit Cardiology, [facility] [address] [place] [address] Valerie Ibrahim CRNP [address] [place] [address] 06/21/2024 3:30 PM EDT Office Visit Ophthalmology, [place] [address] [place] [address] Kenny Hector DO [address] [place] [address] 08/03/2024 9:25 AM EDT Office Visit Urogynecology Lindsay Ramesh [address] [place] [address] Hiro Lyons MD [address] [place] [address] Nurse Rahel Ramesh [address] [place] [address] Health Maintenance Due Date Last Done Comments [...] this encounter Medical Devices Implanted Type Area Wind Up Operator Device Identifier Shelf Expiration Date Model / Serial / Lot Alloderm 2x4 Sheet [id number] ( 8 Units ) - [id number] - [id number] Implanted:Qty : 8 on 02/04/2015 by Marques Rodriguez MD at OR [facility] Tissue - Human N/A: Esophagus LIFE CELL EMMANUEL 07/19/2016 [id number] / [id number] Stent Eso Gw [id number] - [id number] Implanted:Qty : 1 on 02/05/2015 by Marques Rodriguez MD at OR [facility] N/A: Esophagus ALVEOLUS INC 05/19/2017 [id number] / / [id number] documented as of this encounter Procedures Procedure [...] study not interpreted or resulted by a [facility] or [facility] contracted radiologist. us Jasmin Campbell PA-C RADIOLOGY ([facility] ) Final Result documented in this [...] Documents on File Type Date Recorded Patient Cytogeneticist Expl anation Power of Rn Admission 01/22/2005 POWER OF A TTORNEY DURABLE POWER OF INSTRUCTIONAL DESIGN MANAGER * Full Code (Latest Code Status [...] Saavedrabailey Spouse Health Care Sneha r of Rn Admission Care Teams Organ Tuner Relationship Specialty Start Date End Date Rosalinda Peterson CRNP [address] [place] [address] PCP - General Nurse Practitioner 04/05/24 documented as of this encounter
--- OUTSIDE RECORDS SUMMARY | 2024-08-01 14:23 | External Medical Summary | Summary of Care ---
Author Name Unknown Organization [facility] Address [address] [place] [address] Phone [phone] Care Team Providers Care Informatics Pharmacist Name Role Phone Rosalinda Peterson Primary Care Provider Reason for Visit * Reason Onset Date Comments Appointment 04/05/2024 HOSPITAL DISCHAR GE Encounter Details Date Type Department Care Team (Late st Contact Info) Description 04/05/2024 Telephone Family Practice [facility] [address] [place] [address] Rosalinda Peterson CRNP [address] [place] [address] Appointment (HOSPITAL DISCHARGE) Allergies Active Allergy Reactions Criticality Noted Date [...] TUESDAYS, THURSDAYS AND SATURDAYS 90 Tablet 2 01/17/2024 2:07 PM EDT 4 Active busPIRone HCl 5 [...] Fluocinolone Acetonide Scalp 0.01 % External Oil ([place]-Smoothe/FS Scalp) Apply to external ears as needed [...] then SPF 30 daily 45 g 2 5 Active documented as of this encounter (statuses as of 04/05/2024) Active Problems Problem Noted Date Diagnosed Date Leg cramping 07/12/2023 Leg swelling 08/26/2022 Advanced directives, counseling/discussion 03/10 Overview (07/20/2008): PROJECT: #[id number], MANAGING DIRECTOR ATLAS: Angelito Chen MD SUMMARY: Patients with CHD are randomized to darapladib (Lp-PLA2 inhibitor) or placebo in addition to standard of care medications to evaluate incidence of major coronary events. CONTACTS: During normal business hours, contact Clincal Research Coordinator at appropriate clinic location, after hours on-call Clinical Research Coordinator via the [facility] hospital cloth winder machine operator ([phone]). The study sponsor can be reached at: [...] 07/07/2022 07/05/2023 Coronary artery disease invo lving igiugig coronary artery of igiugig heart with unstable angina pectoris 07/18/2020 04/06/2023 Gastroesophageal reflux dise ase without esophagitis 06/11/2020 03/31/2022 Pain, dental 12/04/2017 06/24/2018 Visual loss 03/29/2017 10/01/2017 Headache, unspecified headache type 03/29/2017 11/11/2017 Neck discomfort 03/29/2017 10/01/2017 Abdominal pain, right upper quadrant 09/04/2016 12/07/2016 Chest pain, non-cardiac 08/09/201607/2018 Overview (08/10/2016): Cath [facility] 07/2016 with no changes - old FREELANCE WEB DESIGNER Diagonal Abnormal nuclear stress test 07/27/2016 11/11/2017 Overview (08/10/2016): anterolat ischemia on nuclear 07/2016, totally expected as she has chronic total diagnonal occlusion Moderate persistent asthma w ithout complication 04/30/2016 05/19/2022 Viral URI with cough 03/01/2016 017 Coronary artery disease invo lving igiugig coronary artery of igiugig heart with unstable angina pectoris 10/03/2015 06/11/2020 Overview (08/10/2016): Salvage Winder: Amador Barry PA-C Ramesh Hx Ant wall [place] at the age of 45 s/p PTCA of the LAD at [place] S/p Cath 2010, with FREELANCE WEB DESIGNER of the diag 07/2016 [facility]: moderate ischemia in a large portion of the anterior lateral and lateral myocardium.EF 76% 07/2016 Cath [facility] for atyp back pain and abnl nuclear stress: Patent LAD and RCA, known FREELANCE WEB DESIGNER of the diagonal. 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 Added to display note HD also * Telephone Encounter - Rosalinda Peterson CRNP - 04/05/2024 12:55 PM EST Yes can do hospital follow up then SARITHA Galicia, BENJY [facility] * Telephone Encounter - Shane Bran OSA - 04/05/2024 11:24 AM EST Rosalinda pt is scheduled w/ you on 04/13 for a 40 min Get Established appt. Can the pt use that apptfor the ER follow up also? Please advise. * Telephone Encounter - Rosalinda Peterson CRNP - 04/05/2024 11:05 AM EST Reviewed ER notes. Please schedule Hospital follow up for patient SARITHA Galicia, BENJY [facility] documented in this encounter Plan of Treatment Upcoming Encounters Date Type Department Care Team (Late st Contact Info) Description 04/13/2024 10:40 AM EST Office Visit Family Practice [facility] [address] [place] [address] Rosalinda Peterson CRNP [address] [place] [address] 05/25/2024 11:00 AM EST Office Visit Cardiology, [facility] [address] [place] [address] Amador Uriarte PA-C [address] [place] [address] 06/13/2024 10:30 AM EDT Office Visit Gastroenterology, [facility] [address] [place] [address] Aster Dawson CRNP [address] [place] [address] 06/20/2024 11:00 AM EDT Office Visit Cardiology, [facility] [address] [place] [address] Valerie Ibrahim CRNP [address] [place] [address] 06/21/2024 3:30 PM EDT Office Visit Ophthalmology, [address] [place] [address] Kenny Hector DO [address] [place] [address] 08/03/2024 9:25 AM EDT Office Visit Urogynecology [facility] [address] [place] [address] Hiro Lyons MD [address] [place] [address] Nurse Rahel Ramesh [address] [place] [address] Health Maintenance Due Date Last Done Comments [...] encounter Medical Devices Implanted Type Area Band Splitter Device Identifier Shelf Expiration Date Model / Serial / Lot Alloderm 2x4 Sheet [id number] ( 8 Units ) - [id number] - [id number] Implanted:Qty : 8 on 02/04/2015 by Marques Rodriguez MD at OR [facility] Tissue - Human N/A: Esophagus LIFE CELL EMMANUEL 07/19/2016 [id number] / [id number] Stent Eso Gw [id number] - [id number] Implanted:Qty : 1 on 02/05/2015 by Marques Rodriguez MD at OR [facility] N/A: Esophagus ALVEOLUS INC 05/19/2017 [id number] / / [id number] documented as of this encounter Advance Directives Documents on File Type Date Recorded Patient Leasing Manager Expl anation Power of 01/22/2005 POWER OF A TTORNEY DURABLE POWER OF GREEN MEAT GRADER * Full Code (Latest Code Status on [...] Saavedrabailey Spouse Health Care Sneha r of Care Teams Informatics Pharmacist Relationship Specialty Start Date End Date Rosalinda Peterson CRNP [address] [place] [address] PCP - General Nurse Practitioner 04/05/24 documented as of this encounter
--- OUTSIDE RECORDS SUMMARY | 2024-08-01 14:23 | External Medical Summary | Summary of Care ---
Author Name Unknown Organization [facility] Address [address] [place] [address] Phone [phone] Care Team Providers Care Weaving Teacher Name Role Phone Rosalinda Petersonlle BENJY Primary Care Provider Encounter Details Date Type Department Care Team (Latest Contact Info) Description 04/05/2024 9:41 AM EST - 04/05/2024 11:59 PM EST Hospital Encounter Radiology Film File [address] [place] [address] Arrived Discharge Disposition: Home - Self Care Allergies Active Allergy Reactions Criticality Noted Date Comments Adhesive Tape 05/27/2021 Other reaction(s): Rash Chlorhexidine Low 12/30/2020 Other reaction(s): rash, itching Escitalopram Oxalate Itching,Other (Please comment) 09/07/2011 Jittery Ibuprofen 05/19/2022 Swelling, redness, hives Latex 03/18/2011 Rash Paroxetine Hcl 10/24/2015 Foggy/visual impairment documented as of this encounter (statuses as of 04/06/2024) Medications TYLENOL ARTHRITIS PAIN 650 MG PO [...] g 3 1 Active AMBULATORY MISCELLANEOUS MEDICATION / CBD gummy [...] Fluocinolone Acetonide Scalp 0.01 % External Oil ([place]-Smoothe/FS Scalp) Apply to external ears as needed [...] as of this encounter (statuses as of 04/06/2024) Active Problems Problem Noted Date Diagnosed Date Leg cramping 07/12/2023 Leg swelling 08/26/2022 Advanced directives, counseling/discussion 03/10 Overview (07/20/2008): PROJECT: #[id number], ESTATE TAX EXAMINER: Angelito Chen MD SUMMARY: Patients with CHD are randomized to darapladib (Lp-PLA2 inhibitor) or placebo in addition to standard of care medications to evaluate incidence of major coronary events. CONTACTS: During normal business hours, contact Clincal Research Coordinator at appropriate clinic location, after hours on-call Clinical Research Coordinator via the [facility] hospital facsimile machine operator ([phone]). The study sponsor can be reached at: [...] as of this encounter (statuses as of 04/06/2024) Resolved Problems Problem Noted Date Diagnosed Date Resolved Date Depression, unspecified 12/23/2022 12/0 06/2022 Migraine with aura, not intr actable, without status migrainosus 07/07/2022 07/05/2023 Coronary artery disease invo lving [place]qs[place] coronary [...] C 07/2016 with no changes - old SHACKLER Diagonal Abnormal nuclear stress test 07/27/2016 11/11/2017 Overview (08/10/2016): anterolat ischemia on nuclear 07/2016, totally expected as she has chronic total diagnonal occlusion Moderate persistent asthma w ithout complication 04/30/2016 05/19/2022 Viral URI with cough 03/01/2016 05/21/2 017 Coronary artery disease invo lving [place] coronary artery of [place]qs[place] heart with unstable angina pectoris 10/03/2015 06/11/2020 Overview (08/10/2016): Document Preparation Special[facility] Ant wall [place] at the age of 45 s/p PTCA of the LAD at [place] S/p Cath 2010, with SHACKLER of the diag 07/2016 [facility]: moderate ischemia in a large portion of the anterior lateral and lateral myocardium.EF 76% 07/2016 Cath [facility] for atyp back pain and abnl nuclear stress: Patent LAD and RCA, known SHACKLER of the diagonal. 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 on file Not on file Not [...] 10:40 AM EST Office Visit Family Practice [facility] [address] [place] [address] Rosalinda Peterson CRNP [address] [place] [address] 05/25/2024 11:00 AM EST Office Visit Cardiology, [facility] [address] [place] [address] Amador Uriarte PA-C [address] [place] [address] 06/13/2024 10:30 AM EDT Office Visit Gastroenterology, [facility] [address] [place] [address] Aster Dawson CRNP [address] [place] [address] 06/20/2024 11:00 AM EDT Office Visit Cardiology, [facility] [address] [place] [address] Valerie Ibrahim CRNP [address] [place] [address] 06/21/2024 3:30 PM EDT Office Visit Ophthalmology, [place] [address] [place] [address] Kenny Hector DO [address] [place] [address] 08/03/2024 9:25 AM EDT Office Visit Urogynecology Lindsay Gadiel [address] [place] [address] Hiro Lyons MD [address] [place] [address] Nurse Rahel Ramesh [address] [place] [address] Health Maintenance Due Date Last Done Comments [...] this encounter Medical Devices Implanted Type Area Maintenance Shop Clerk Device Identifier Shelf Expiration Date Model / Serial / Lot Alloderm 2x4 Sheet [id number] ( 8 Units ) - [id number] - [id number] Implanted:Qty : 8 on 02/04/2015 by Marques Rodriguez MD at OR [facility] Tissue - Human N/A: Esophagus LIFE CELL EMMANUEL 07/19/2016 [id number] / [id number] / [id number] Stent Eso Gw [id number] - [id number] Implanted:Qty : 1 on 02/05/2015 by Marques Rodriguez MD at OR [facility] N/A: Esophagus ALVEOLUS INC 05/19/2017 [id number] / / [id number] documented as of this encounter Procedures Procedure [...] interpreted or resulted by a [facility] or [facility] contracted radiologist. Jasmin Campbell PA-C RADIOLOGY ([facility] ) Final Result documented in this encounter Advance Directives Documents on File Type Date Recorded Patient Rubber Mill Tender Expl anation Power of Compo Caster 01/22/2005 POWER OF A TTORNEY DURABLE POWER OF MANAGER INTERN * Full Code (Latest Code Status [...] patient have Health Care Power of Attor mrak? No * Full Code Date Activated Date [...] Saavedrabailey Spouse Health Care Sneha r of Compo Caster Care Teams Weaving Teacher Relationship Specialty Start Date End Date Rosalinda Peterson CRNP [address] [place] [address] PCP - General Nurse Practitioner 04/05/24 documented as of this encounter
[2024-08-01] MEDS ORDERED: ONDANSETRON INJ 2 MG/ML 2 ML VIAL IV PRN (15:51)
[2024-08-01] MEDS ORDERED: ALBUTEROL HFA 8 GM INHALER INH PRN (15:51)
[2024-08-01] MEDS ORDERED: tiZANidine HCL 4 MG TABLET PO PRN (15:51)
[2024-08-01] MEDS ORDERED: LORazepam 0.5 MG TAB PO PRN (15:51)
[2024-08-01] MEDS ORDERED: MAGNESIUM HYDROXIDE SUSP 30 ML UDC PO PRN (15:51)
[2024-08-01] MEDS ORDERED: PHARMACIST DISCHARGE MED REC CONSULT PRN (15:51)
--- NOTE | 2024-08-01 17:36 | Electrocardiogram Report ---
Test Reason : Blood Pressure : */* mmHG Vent. Rate : 61 BPM Atrial Rate : 61 BPM P-R Int : 240 ms QRS Dur : 88 ms QT Int : 422 ms P-R-T Axes : * 26 25 degrees QTcB Int : 424 ms Atrial-paced rhythm with prolonged AV conduction Abnormal ECG When compared with ECG of 04-Apr-2024 11:55, No significant change was found Confirmed by Jd Pisano ([id number]) on 08/01/2024 5:36:07 PM Referred By: REFERRED SELF Confirmed By: Jd Pisano
[2024-08-01] MEDS: ACETAMINOPHEN 325 MG TAB PO PRN (20:11)
[2024-08-01] MEDS: busPIRone 5 MG TAB PO SCH (20:13)
[2024-08-01] MEDS: ATENOLOL 50 MG TABLET PO SCH (20:13)
[2024-08-01] MEDS: HEPARIN SOD 5,000 UNIT/0.5 ML VIAL SQ SCH (20:14)
[2024-08-02 06:34] LABS: Hematocrit (blood only) 43.4 % (37.0-47.0); Hemoglobin 14.5 g/dl (12.0-16.0); Mean Corpuscular Hemoglobin 31.1 pg (25.0-34.0); Mean Corpuscular Hgb Conc 33.4 g/dL (32.0-36.0); Mean Corpuscular Volume 93.1 fL (80.0-100.0); Mean Platelet Volume 10.4 fL (9.4-12.4); Platelet Count 209 K/uL (130-400); RDW Coefficient of Variation 12.8 % (11.5-14.5); RDW Standard Deviation 43.8 fL (36.4-46.3); Red Blood Count 4.66 M/uL (4.20-5.40); White Blood Count 4.71 K/ul (4.8-10.8)
[2024-08-02 06:57] LABS: BUN Creatinine Ratio 10.3 (10-20); Calcium 9.4 mg/dl (8.6-10.3); Chol HDL Ratio 2.7 (0-5); Creatinine Clr Calc Pharmacy 59.3 ml/min; Potassium 4.3 mmol/L (3.5-5.1)
[2024-08-02 07:05] LABS: Troponin I High Sensitivity 3.2 pg/ml (0-14)
[2024-08-02] MEDS: POLYETHYLENE (MIRALAX) 17 GM PACK PO SCH (08:03)
[2024-08-02] MEDS: CHOLECALCIFEROL 25 MCG (1000 UNITS) TAB PO SCH (08:04)
[2024-08-02] MEDS: CYANOCOBALAMIN (B-12) 500 MCG TABLET PO SCH (08:04)
[2024-08-02] MEDS: dilTIAZem HCL 120 MG CAPCR PO SCH (08:04)
[2024-08-02] MEDS: FUROSEMIDE 20 MG TAB PO SCH (08:04)
[2024-08-02] MEDS: ATORVASTATIN 20 MG TAB PO SCH (08:04)
[2024-08-02] MEDS: POTASSIUM CHLORIDE 10 MEQ TABCR PO SCH (08:09)
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
[2024-08-02 08:55] LABS: Estimated Average Glucose 111 mg/dl; Hemoglobin A1C 5.5 % (4.5-5.6)
--- NOTE | 2024-08-02 12:38 | Hospitalist Progress Note ---
Date of Service August 02, 2024 Assessment & Plan Admission and Anticipated Discharge Date Admission Date: August 01, 2024 Results & Data Results & Data Vital Signs (Past 12 Hours) Vital Signs Temp Pulse Pulse Resp BP Pulse Ox O2 Del Method 08/02/24 11:32 36.8 C 75 18 135/80 96 Room Air 08/02/24 07:54 Room Air 08/02/24 07:32 36.3 C L 70 18 125/84 96 Room Air 08/02/24 05:43 60 08/02/24 02:31 36.5 C 61 18 153/74 H 96 Room Air
--- NOTE | 2024-08-02 13:05 | Magnetic Resonance Report ---
MR brain wo con HISTORY: 78 years-old Female Stroke r/o acute stroke like symptoms COMPARISON: Head CT 08/01/2024 TECHNIQUE: Multiplanar multisequence MRI of the brain was obtained without IV contrast FINDINGS: No restricted diffusion to suggest acute or subacute infarct. Midline structures appear unremarkable. No acute intracranial hemorrhage, midline shift, abnormal extra-axial collection, hydrocephalus or i ntra-axial mass. Involutional changes with moderate T2/FLAIR hyperintense foci throughout the white m atter suggestive of chronic microvascular ischemic disease. Cerebral venous sinuses and major arterial flow voids appear patent. The skull, orbits and soft tissu es are unremarkable. Prior bilateral lens repair. Mastoid air cells and paranasal sinuses are clear. IMPRESSION: 1. No acute intracranial abnormality. No acute or subacute infarct. 2. Involutional changes with chronic microvascular ischemic disease. ACT 112: Negative or not required by law. The above report was generated using voice recognition software. It may contain grammatical, syntax o r spelling errors. Electronically signed by: Wilbur Khan M.D. 08/02/2024 1:04 PM
[2024-08-02 15:25] VITALS: BP 106/71; PULSE 64; TEMP 97.7; O2SAT 97
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
[2024-08-02] MEDS: BACLOFEN 10 MG TAB PO ONE (17:09)
[2024-08-02] MEDS ORDERED: STROKE PATIENT DISCHARGE STA (17:22)
--- NOTE | 2024-08-02 18:01 | Discharge Summary ---
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 Cervicogenic Headache Stroke-like symptoms Made stroke alert in the ED. Head CT and head/neck CTA did not reveal any acute abnormalities. Brain MRI unremarkable. Seen and evaluated by [facility] neurologist. No indication for TNK. Recommended to continue ASA 81mg daily. Echo unchanged from previous. Lipid panel normal [id number] normal PT/OT Evaluated by [facility], recommending the following: "...Ciarra Mcguire is a 78 yo F presenting with cervicogenic headache, possible cervical dystonia. MRI unremarkable. This is not consistent with stroke or TIA. Suspect trapezius muscle involvement and irritation of the occipital nerve to explain the numbness and sharp pain. Recommend more consistent muscle relaxants - specifically baclofen 10mg BID. Can stop the PRN tizanidine. Would follow closely with neuro for consideration of SUNDEEP block or botox. -- Start baclofen 10mg BID -- Stop tizanidine -- Neurology follow-up..." Chest pain Reports an episode of midsternal chest pain radiating into the back about 2 weeks ago which was relieved by SL nitroglycerin x 1. Given this history and considering her prior cardiac events, chest CTA with dissection protocol was obtained in the ED which came back with no acute abnormalities. HS troponin negative. EKG with no acute ST changes. Cardiology evaluated and recommended the following: "...Prior coronary angiogram reviewed demonstrating extremely small coronary arteries with possible vasospasm. I suspect some of patient's symptoms may be related to vasospasm. No evidence of dysrhythmia per pacemaker interrogation. She would not likely tolerate long-acting nitrates due to history of migraine headache. Reports headache after recent trial of sublingual nitroglycerin...R ecommend adjustment of antianginal therapies with titration of diltiazem to 180mg daily with concomitant reduction of atenolol to 75 mg daily. Metoprolol intolerance documented. No further inpatient cardiac testing or intervention recommended at this time. 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 History obtained from the patient, patient's at bedside, discussion with ED provider and associated chart review. Patient seen at bedside in the ED with Dr. Leon. Endorses left-sided facial numbness which started this morning. Also having some pain in the inner aspect of her left arm. Reports she has been having some pain in the inner upper aspect of her left arm for the past few months however the pain started to travel down her entire arm beginning last evening. Denies any left upper extremity numbness or tingling. Has not noticed any changes in her extremity strength. Endorses bouts of double vision with twisting of her head over the past few days. Now feels the episodes of double vision have resolved however she notes her vision is "not entirely clear yet." Has noted her left eye is more watery than usual. Feels her vision is still "somewhat blurry." Also endorses some bilateral pretibial numbness which has been ongoing for the past few days. Reports a left-sided headache. Chronic intermittent headaches at baseline. Feels this is similar to her usual headaches. No recent falls or trauma. Does not typically use any ambulatory assistive devic es. Had an episode of sharp pain between her shoulder blades about 2 weeks ago which was relieved by sublingual nitroglycerin x 1. No further episodes like this since then. Chronic dyspnea with exertion. Feels unchanged from baseline. No changes in her bowel habits. No urinary complaints such as dysuria, hematuria or increased urinary frequency. Denies any abdominal pain. Former smoker. Quit about 10 years ago. Rare alcohol use. Use CBD gummies. Took a gummy last evening that had THC in it. Endorses feeling very anxious. Usually takes 0.25mg of Ativan every morning. Admission Exam Per Admitting Provider On exam, General: Very anxious elderly woman in no distress Eyes: PERRL, conjunctivae normal, not pale, anicteric sclerae, EOM intact bilaterally ENMT: External ear and nose normal, oropharynx normal Respiratory: Normal respiratory effort, no respiratory distress, lungs clear to auscultation, no crackles and no wheezes Cardiovascular: RRR S1 S2 Gastrointestinal (Abdomen): Abdomen is not distended, soft, non-tender to palpation, no guarding, no palpable hepatosplenomegaly, normal bowel sounds Musculoskeletal: Trace ankle edema Neurologic: Alert and oriented x 3, No focal weakness, sensation grossly intact Psychiatric: Anxious affect Discharge Exam General: Alert, oriented. No acute distress HEENT: NC/AT Neuro: CNII-XII grossly intact CV: RRR Resp: Breath sounds clear bilaterally, no increased effort of breathing Abdomen: Soft, nontender Extremities: No edema in lower extremities bilaterally. Updated Medication List Medication Instructions Recorded Confirmed Type albuterol sulfate 90 mcg/actuation 2 puff inhalation Q4 PRN 06/16/18 08/01/24 History aerosol inhaler (Proventil HFA) SOB/Wheezing aspirin 81 mg tablet,delayed 81 mg PO QPM 06/16/18 08/01/24 History release (Katelyn Low Dose Aspirin) buspirone 5 mg tablet 5 mg PO BID 06/16/18 08/01/24 History cholecalciferol (vitamin D3) 50 2,000 unit PO QAM 06/16/18 08/01/24 History mcg (2,000 unit) capsule (Vitamin D3) dicyclomine 10 mg capsule 10 mg PO BIDM PRN DIARRHEA/ABD PAIN 06/16/18 08/01/24 History estradiol 0.5 mg tablet (Estrace) 0.5 mg PO 4XWK 06/16/18 08/01/24 History lorazepam 0.5 mg tablet (Ativan) 0.25 - 0.5 mg PO TID PRN Anxiety 06/16/18 08/01/24 History nitroglycerin 0.4 mg sublingual 0.4 mg sublingual DIRECTED PRN 06/16/18 08/01/24 History tablet (Nitrostat) Chest Pain cyanocobalamin (vitamin B-12) 1,000 mcg PO 3XWK 11/23/20 08/01/24 History 1,000 mcg tablet (Vitamin B-12) clotrimazole-betamethasone 1 1 applic topical BID PRN Skin 05/27/21 08/01/24 History %-0.05 % topical cream Irritation desonide 0.05 % lotion 1 applic topical BID PRN APPLY TO 05/27/21 08/01/24 History FACE NEEDED. diclofenac sodium 1 % topical gel 2 g topical BID PRN Pain 05/27/21 08/01/24 History ibuprofen 200 mg tablet 200 - 400 mg PO DIRECTED PRN 05/27/21 08/01/24 History Pain magnesium oxide 400 mg PO DAILY PRN LEG CRAMPS 05/27/21 08/01/24 History ondansetron 4 mg disintegrating 4 mg sublingual Q6H PRN nausea and 05/27/21 08/01/24 History tablet vomiting docusate sodium 50 mg capsule 50 mg PO BID PRN Constipation 05/23/22 08/01/24 History erythromycin 5 mg/gram (0.5 %) eye 1 applic OPB TID PRN Other 05/23/22 08/01/24 History ointment estradiol 0.01% (0.1 mg/gram) 1 applic vaginal 3XWK 05/23/22 08/01/24 History vaginal cream fluconazole 150 mg tablet 150 mg PO Q3D PRN NEEDED PER [facility] 05/23/22 08/01/24 History guar gum 1 tbsp PO DAILY 05/23/22 08/01/24 History polyethylene glycol 3350 17 17 g PO DAILY 05/23/22 08/01/24 History gram/dose oral powder (Miralax) prednisone 10 mg tablet 10 mg PO DIRECTED PRN NEEDED 05/23/22 08/01/24 History PER [facility] Pepto-Bismol 1 tab PO DIRECTED PRN Other 08/01/24 08/01/24 History atorvastatin 20 mg tablet 20 mg PO QAM 08/01/24 08/01/24 History azithromycin 250 mg tablet 250 mg PO UD PRN Other 08/01/24 08/01/24 History furosemide 20 mg tablet 10 mg PO QAM 08/01/24 08/01/24 History metronidazole 1 % topical gel 1 applic topical DAILY PRN Other 08/01/24 08/01/24 History potassium chloride 10 mEq 10 meq PO DAILY 08/01/24 08/01/24 History capsule,extended release atenolol 25 mg tablet 25 mg PO QPM #30 tabs 08/02/24 Rx atenolol 50 mg tablet (Tenormin) 50 mg PO QAM #30 tabs 08/02/24 08/01/24 Rx baclofen 10 mg tablet 10 mg PO BID #60 tabs 08/02/24 Rx diltiazem HCl 180 mg 180 mg PO QAM #30 caps 08/02/24 Rx capsule,extended release 24 hr Hospital Stay Data Consultations 08/01/24 12:06 ED Decision to Admit Stat 08/01/24 13:39 Consult Cardiology Routine Consult Neurology Routine Diagnostic Imagining Performed 08/01/24 10:29 CT angio head w con Stat CT angio neck with con Stat CT head/brain wo con Stat 08/01/24 10:37 CT angio chest dissec wo/w con Stat 08/02/24 00:00 MR brain wo con Routine Head CT 08/01/24 10:29 CT head/brain wo con CLINICAL HISTORY: memory issues, L side of face/arm. TECHNIQUE: Multiple axial CT images of the head were obtained without contrast. A dose lowering technique was utilized adhering to the principles of ALARA. COMPARISON: 04/04/2024 FINDINGS: There is mild motion artifact. No intracranial hemorrhage seen. No mass effect, midline shift, or hydrocephalus. No skull fracture seen. Visualized paranasal sinuses and mastoid air cells are clear. IMPRESSION: No acute findings. ACT 112: Negative or not required by law. The above report was generated using voice recognition software. It may contain grammatical, syntax or spelling errors. Electronically signed by: Kai Juarez M.D. 08/01/2024 11:19 AM Head CTA 08/01/24 10:29 CT angio neck with con, CT angio head w con CLINICAL HISTORY: memory issues, memory issues, L side of face/arm. COMPARISON STUDY: 04/04/2024 TECHNIQUE: Following the IV administration of 120 of Optiray, CT angiogram of the neck was performed from the aortic arch to the skull base. Images are reviewed in the axial, sagittal, and coronal planes. 3-D MIPS images are created and assessed. IV contrast was administered without complication. All measurements were calculated based on NASCET criteria. A dose lowering technique was utilized adhering to the principles of ALARA. CT DOSE: 2308.17 mGy.cm FINDINGS: There are carotid bulb calcifications and calcifications distally at the internal carotid arteries. No significant narrowing or occlusion seen at the common or internal carotid arteries bilaterally. Left vertebral artery is dominant and the right vertebral artery is diminutive beyond PICA, stable anatomic variant. Basilar artery is patent. The anterior, middle, and posterior cerebral arteries are patent bilaterally. There is origin of the right [employer]OR, anatomic variant. Cerebral venous sinuses opacify normally. IMPRESSION: No significant arterial narrowing or occlusion seen at the neck or brain. ACT 112: Negative or not required by law. The above report was generated using voice recognition software. It may contain grammatical, syntax or spelling errors. Electronically signed by: Kai Juarez M.D. 08/01/2024 11:24 AM Neck CTA 08/01/24 10:29 CT angio neck with con, CT angio head w con CLINICAL HISTORY: memory issues, memory issues, L side of face/arm. COMPARISON STUDY: 04/04/2024 TECHNIQUE: Following the IV administration of 120 of Optiray, CT angiogram of the neck was performed from the aortic arch to the skull base. Images are reviewed in the axial, sagittal, and coronal planes. 3-D MIPS images are created and assessed. IV contrast was administered without complication. All measurements were calculated based on NASCET criteria. A dose lowering technique was utilized adhering to the principles of ALARA. CT DOSE: 2308.17 mGy.cm FINDINGS: There are carotid bulb calcifications and calcifications distally at the internal carotid arteries. No significant narrowing or occlusion seen at the common or internal carotid arteries bilaterally. Left vertebral artery is dominant and the right vertebral artery is diminutive beyond PICA, stable anatomic variant. Basilar artery is patent. The anterior, middle, and posterior cerebral arteries are patent bilaterally. There is origin of the right [employer] INSPECTOR, anatomic variant. Cerebral venous sinuses opacify normally. IMPRESSION: No significant arterial narrowing or occlusion seen at the neck or brain. ACT 112: Negative or not required by law. The above report was generated using voice recognition software. It may contain grammatical, syntax or spelling errors. Electronically signed by: Kai Juarez M.D. 08/01/2024 11:24 AM Chest CTA 08/01/24 10:37 CT angio chest dissec wo/w con HISTORY: 78 years-old Female with L sided arm pain, recent chest pain. Acute left-sided chest pain TECHNIQUE: Multiple CTA images of the chest were obtained before and after the intravenous administration of 120 ml Optiray. Coronal and sagittal MIPS were obtained from the axial data set and were submitted for review. All measurements were obtained according to NASCET criteria. A dose lowering technique was utilized adhering to the principles of ALARA. COMPARISON: CTA chest 04/04/2024, CT abdomen and pelvis 02/21/2021 FINDINGS: CTA: The noncontrast scan demonstrates no intramural or mediastinal hematoma. A left subclavian pacer is present. The heart is upper limits of normal in size. No pericardial effusion. Moderate to extensive coronary artery calcifications. Atherosclerosis of the aorta without aneurysm or dissection. No pulmonary emboli identified. CT CHEST: No thyroid nodules. There is no lymphadenopathy. No pneumothorax, pleural effusion, airspace consolidation or pulmonary edema. Resolution of the previously described 5 mm nodule within the left lower lobe. Mild pulmonary emphysema. Central airways are patent. Postoperative changes of the stomach. Colonic diverticulosis. No acute upper abdominal abnormality. No acute fracture. IMPRESSION: 1. Cardiomegaly with left subclavian pacer. 2. No aortic aneurysm or dissection. 3. Mild emphysema without acute intrathoracic abnormality. 4. Resolution of the previously described infectious or inflammatory left lower lobe pulmonary nodule seen on the 04/04/2024 exam. ACT 112: Negative or not required by law. The above report was generated using voice recognition software. It may contain grammatical, syntax or spelling errors. Electronically signed by: Wilbur Khan M.D. 08/01/2024 11:44 AM Brain MRI 08/02/24 00:00 MR brain wo con HISTORY: 78 years-old Female Stroke r/o acute stroke like symptoms COMPARISON: Head CT 08/01/2024 TECHNIQUE: Multiplanar multisequence MRI of the brain was obtained without IV contrast FINDINGS: No restricted diffusion to suggest acute or subacute infarct. Midline structures appear unremarkable. No acute intracranial hemorrhage, midline shift, abnormal extra-axial collection, hydrocephalus or intra-axial mass. Involutional changes with moderate T2/FLAIR hyperintense foci throughout the white matter suggestive of chronic microvascular ischemic disease. Cerebral venous sinuses and major arterial flow voids appear patent. The skull, orbits and soft tissues are unremarkable. Prior bilateral lens repair. Mastoid air cells and paranasal sinuses are clear. IMPRESSION: 1. No acute intracranial abnormality. No acute or subacute infarct. 2. Involutional changes with chronic microvascular ischemic disease. ACT 112: Negative or not required by law. The above report was generated using voice recognition software. It may contain grammatical, syntax or spelling errors. Electronically signed by: Wilbur Khan M.D. 08/02/2024 1:04 PM Pending Results Patient Have Any Pending Studies at Discharge: No Discharge Instructions Given to Patient (Per Discharging Provider) Ciarra, You were evaluated and it appears that you did not have a stroke or a heart attack. You were seen by the Neurologist who recommended that you discontinue your home tizanidine and start taking baclofen. A prescription for that was sent for you to take twice a day. You were seen by the fancy needleworker who made changes to your medications: -Please take atenolol 50mg in the MORNING and 25mg in the evening -Your diltiazem dose has been increased to 180mg Neurology also recommends followup with them after discharge. Please keep close follow up with your primary care provider after discharge. Please do not hesitate to come back to the emergency room if your symptoms worsen or return. It was a pleasure taking care of you while you were here. Total Time Total Time Spent Total Time Spent (In Minutes): 60
[2024-08-02] MEDS ORDERED: ATENOLOL 25 MG TABLET PO SCH (21:00)
[2024-08-02] MEDS ORDERED: ASPIRIN 81 MG ECTAB PO SCH (21:00)
[2024-08-03] MEDS ORDERED: ATENOLOL 50 MG TABLET PO SCH (09:00)
[2024-08-03] MEDS ORDERED: dilTIAZem HCL 180 MG CAPCR PO SCH (09:00)
[2024-08-03 15:10] LABS: iSTAT Creatinine 0.8 mg/dl (0.6-1.3); iSTAT Hemoglobin 15.3 g/dl (12.0-16.0); iSTAT Ionized Calcium 1.21 mmol/l (1.12-1.32); iSTAT Potassium 3.7 mmol/L (3.3-5.0)
== END 2024-08-02 17:44 | disposition home or self-care (01) | DRG 103 ==
LOC: ED 10:14 → SUATTDRO 13:34 → 2N 13:34